=== PATIENT | female | born 1980 | race Caucasian/White ===

== ENCOUNTER 2021-06-27 11:21 | Emergency (ER) | payer MEDICARE, MEDICAID, SELFPAY ==
--- NOTE | ~2021-06-27 | CT_ITS ---
EXAMINATION: CT ABDOMEN AND PELVIS WITH CONTRAST CLINICAL INFORMATION: Pancreatitis. COMPARISON: None TECHNIQUE: Multidetector volumetric images were obtained from the superior aspect of the liver through the pubic symphysis following administration 85 mL of Omnipaque 350 intravenous contrast. Sagittal and coronal reformatted images were obtained on the technologist's workstation. Oral contrast: No. This CT examination was performed using dose optimization techniques as appropriate, variously including the following: Automated exposure control. Adjustment of mA and/or kV according to patient size (this includes techniques or standardized protocols for targeted exams where dose is matched to indication/reason for exam; i.e. extremities or head). Use of iterative reconstruction technique. DLP: 482 mGy-cm FINDINGS: LUNG BASES: The visualized lung bases are unremarkable. LIVER, GALLBLADDER, AND BILIARY TREE: There is diffuse hepatic steatosis. There are no focal lesions. There is no biliary duct dilatation. The gallbladder surgically absent. PANCREAS: Unremarkable. No apparent pancreatic inflammatory changes. SPLEEN: Upper normal in size. ADRENAL GLANDS: Unremarkable. KIDNEYS AND URETERS: The kidneys are normal in size, shape, and attenuation. No hydronephrosis, hydroureter, or calculi seen. No perinephric stranding. BLADDER: Unremarkable. GASTROINTESTINAL TRACT: The small and large bowel are unremarkable. The appendix is unremarkable. ABDOMINAL WALL: No significant hernia is appreciated. LYMPH NODES: Normal. VASCULAR: Unremarkable. PELVIC VISCERA: Unremarkable. OSSEOUS STRUCTURES: There is a transitional vertebra at the lumbosacral junction with partial sacralization of the left side of the L5 vertebra with an incomplete osseous bridge from left transverse process to sacrum. There is moderate bilateral facet arthropathy at L4-L5. There is mild bilateral facet arthropathy at L5-S1. CT/CT abdomen pelvis w con IMPRESSION: 1. Diffuse hepatic steatosis. 2. No evidence of pancreatitis or other acute inflammatory processes in the abdomen or pelvis.
[2021-06-27 11:27] VITALS: BP 137/86; PULSE 133; RESP 16; TEMP 37; O2SAT 98; BMI 24.0
--- NOTE | 2021-06-27 11:32 | ECG_ITS ---
Test Reason : ABDOMINAL PAIN Blood Pressure : / mmHG Vent. Rate : 067 BPM Atrial Rate : 067 BPM P-R Int : 192 ms QRS Dur : 082 ms QT Int : 448 ms P-R-T Axes : 055 033 026 degrees QTc Int : 473 ms Normal sinus rhythm Normal ECG When compared with ECG of 20-JUL-2012 18:40, Vent. rate has decreased BY 62 BPM Referred By: Gale Mendes Electronically Signed By:TRUPTI WANG
--- NOTE | 2021-06-27 12:08 | ED.ABDPAIN ---
HPI - Abdominal Pain General Chief Complaint: Abdominal Pain Stated Complaint: abd pain Time Seen by Provider: 06/27/21 11:32 Source: patient Mode of arrival: ambulatory Limitations: no limitations History of Present Illness MD elicited complaint: abdominal pain Pertinent past history: other (chronic pancreatitis did drink recently ) Onset (ago): day(s) (2) Pain Consistency: constant Location: epigastric Severity: severe Quality: stabbing Radiation: back Migration to: no migration Exacerbating factors: eating and movement Relieving factors: nothing Context: history of similar episodes Associated symptoms: nausea and vomiting Related Data Allergies Allergy/AdvReac Type Severity Reaction Status Date / Time lamotrigine [From LAMICTAL] Allergy Unknown UNKNOWN Unverified 07/14/20 16:49 From COMPAZINE Allergy Unknown UNKNOWN Uncoded 07/14/20 16:49 Review of Systems Review of Systems Constitutional : No Weight loss, No Fever, No Chills ENT/Mouth : No sore throat, No Rhinorrhea Eyes: No Swelling, No Redness Cardiovascular : No Chest Pain, No SOB, NoEdema Respiratory : No Cough, No Sputum, No Wheezing Gastrointestinal : Positive Nausea, Positive Vomiting, no Diarrhea, positive abdominal Pain, No Hematochezia, No Melena Genitourinary : No Dysuria, No Urinary Frequency, No Hematuria, No Urgency Musculoskeletal : No joint pain, No Myalgias, No Joint Swelling Skin : No Skin Lesions, No rash Neuro : No Weakness, No Numbness, No Dizziness, No Headache Psych : No Anxiety/Panic, No Depression Heme/Lymph: No Bruising, No Lymphadenopathy Endocrine : No Polyuria, No Polydipsia All other systems reviewed and are negative. Physical Exam Vital Signs: Vital Signs: Last Vital Signs Temp 98.3 F 06/27/21 15:06 Pulse 80 06/27/21 15:06 Resp 16 06/27/21 15:06 BP 129/74 06/27/21 15:06 Pulse Ox 97 06/27/21 15:06 Body Mass Index 24.0 Appearance: Alert. Oriented X3. Anxious in pain mild acute distress. Eyes: Pupils equal, round and reactive to light. ENT: Pharynx normal. Neck: Normal inspection. Neck supple. CVS: tachycardic heart rate and rhythm. Pulses normal. Respiratory: No respiratory distress. Breath sounds normal. Abdomen: Soft and moderate epigastric ttp with guarding no rebound Skin: Skin warm and dry. Normal skin color. Normal skin turgor. Extremities: No lower extremity edema. No calf ttp Neuro: Oriented X 3. No motor deficit. No sensory deficit. Course Course Course Narrative: given degree of pain CT scan ordered VS drastically improved signed out to Nanette CURTAIN STRETCHER pending CT scan results MDM - Abdominal Pain MDM Narrative Medical decision making narrative: 41 yo female with hx of pancreatitis here with abdominal pain and n/v feels like her pancreatitis at this time will obtain labs, IVF, IV morphine and ativan - dispo per results and findings. Lab Data Result diagrams: 06/27/21 12:13 06/27/21 12:58 Labs: Lab Results 06/27/21 06/27/21 06/27/21 Range/Units 12:13 12:13 12:13 WBC 5.9 (4.8-10.8) X10*3/uL RBC 4.15 L (4.20-5.50) X10*6/uL Hgb 13.2 (12.0-16.0) g/dl Hct 39.2 (37-47) % MCV 94.5 (80-98) fL MCH 31.8 (27.0-33.0) pg MCHC 33.7 (31.0-35.0) g/dl RDW 12.6 (11.0-16.0) % Plt Count 216 (160-400) X10*3/uL MPV 9.8 (9.4-12.3) fL Immature Gran % (Auto) 0.2 (0.0-0.4) % Neut % (Auto) 72.2 (45-73) % Lymph % (Auto) 20.6 (20-40) % [place] % (Auto) 5.6 (2-11) % Eos % (Auto) 0.7 (0-4) % Baso % (Auto) 0.7 (0-2) % Lymph # (Auto) 1.2 (1.2-4.9) X10*3/uL [place] # (Auto) 0.3 (0.1-1.2) X10*3/uL Eos # (Auto) 0.0 (0.0-0.4) X10*3/uL Baso # (Auto) 0.0 (0.0-0.2) X10*3/uL Abs Immat Gran (auto) 0.01 (0.00-0.03) X10*3/uL Absolute Neuts (auto) 4.3 (2.0-8.3) X10*3/uL Absolute Nucleated RBC 0.000 (0.0-0.012) X10*3/uL Nucleated RBC % (auto) 0.0 (0.0-0.2) /100WBC Sodium (135-145) mmol/L Potassium (3.3-5.1) mmol/L Chloride (96-108) mmol/L Carbon Dioxide (22-29) mmol/L Anion Gap (12-20) BUN (9-16) mg/dL Creatinine (0.5-1.4) mg/dL Estim Creat Clear Calc Estimated GFR Random Glucose (60-115) mg/dL Calcium (8.4-10.2) mg/dL Total Bilirubin (0.0-1.0) mg/dL Direct Bilirubin (0.0-0.5) mg/dL AST (5-31) U/L ALT (0-31) U/L Alkaline Phosphatase (39-117) U/L Lactate Dehydrogenase (122-220) U/L Total Protein (6.5-8.0) g/dL Albumin (3.5-5.0) g/dL Lipase (8-78) U/L Ethyl Alcohol 162 mg/dL COVID-19 (SISI) Negative (Negative) COVID-19 Clin Com See Note 06/27/21 06/27/21 Range/Units 12:58 12:58 WBC (4.8-10.8) X10*3/uL RBC (4.20-5.50) X10*6/uL Hgb (12.0-16.0) g/dl Hct (37-47) % MCV (80-98) fL MCH (27.0-33.0) pg MCHC (31.0-35.0) g/dl RDW (11.0-16.0) % Plt Count (160-400) X10*3/uL MPV (9.4-12.3) fL Immature Gran % (Auto) (0.0-0.4) % Neut % (Auto) (45-73) % Lymph % (Auto) (20-40) % [place] % (Auto) (2-11) % Eos % (Auto) (0-4) % Baso % (Auto) (0-2) % Lymph # (Auto) (1.2-4.9) X10*3/uL [place] # (Auto) (0.1-1.2) X10*3/uL Eos # (Auto) (0.0-0.4) X10*3/uL Baso # (Auto) (0.0-0.2) X10*3/uL Abs Immat Gran (auto) (0.00-0.03) X10*3/uL Absolute Neuts (auto) (2.0-8.3) X10*3/uL Absolute Nucleated RBC (0.0-0.012) X10*3/uL Nucleated RBC % (auto) (0.0-0.2) /100WBC Sodium 139 (135-145) mmol/L Potassium 3.6 (3.3-5.1) mmol/L Chloride 104 (96-108) mmol/L Carbon Dioxide 26 (22-29) mmol/L Anion Gap 13 (12-20) BUN 6 L (9-16) mg/dL Creatinine 0.64 (0.5-1.4) mg/dL Estim Creat Clear Calc 98.9 Estimated GFR > 60 Random Glucose 75 (60-115) mg/dL Calcium 8.6 (8.4-10.2) mg/dL Total Bilirubin 1.2 H (0.0-1.0) mg/dL Direct Bilirubin 0.5 (0.0-0.5) mg/dL AST 88 H (5-31) U/L ALT 48 H (0-31) U/L Alkaline Phosphatase 87 (39-117) U/L Lactate Dehydrogenase 139 (122-220) U/L Total Protein 6.8 (6.5-8.0) g/dL Albumin 3.8 (3.5-5.0) g/dL Lipase 8 (8-78) U/L Ethyl Alcohol mg/dL COVID-19 (SISI) (Negative) COVID-19 Clin Com Discharge Plan Discharge Clinical Impression: Abdominal pain, Alcohol intoxication, Acute alcoholic gastritis Instructions: Abdominal Pain (ED), Abuse of Alcohol (ED), Gastritis (ED) [facility] Past Medical History Attestation statement: The following information was validated with the patient. Medical History Pancreatitis, chronic Surgical History Hx of cholecystectomy Social History Social History (Updated 06/27/21 @ 12:10 by Ml Zarate DO) Alcohol intake: current Patient Tobacco Use Status: Current someday Tobacco user Advance Directives: No Advance Directives Information Provided: No
[2021-06-27 12:17] LABS: MANUAL DIFF FLAG NO
[2021-06-27 12:20] LABS: Basophils Percent Auto 0.7 % (0-2); Eosinophils Percent Auto 0.7 % (0-4); Hematocrit 39.2 % (37-47); Hemoglobin 13.2 g/dl (12.0-16.0); Imm Gran Abs Auto 0.01 X10*3/uL (0.00-0.03); Imm Gran Pct Auto 0.2 % (0.0-0.4); Lymphocytes Absolute Auto 1.2 X10*3/uL (1.2-4.9); Lymphocytes Percent Auto 20.6 % (20-40); Mean Corpuscular HGB Conc 33.7 g/dl (31.0-35.0); Mean Corpuscular Hemoglobin 31.8 pg (27.0-33.0); Mean Corpuscular Volume 94.5 fL (80-98); Mean Platelet Volume 9.8 fL (9.4-12.3); Monocytes Absolute Auto 0.3 X10*3/uL (0.1-1.2); Monocytes Percent Auto 5.6 % (2-11); Neutrophils Absolute Auto 4.3 X10*3/uL (2.0-8.3); Neutrophils Percent Auto 72.2 % (45-73); Platelet Count 216 X10*3/uL (160-400); Red Blood Count 4.15 X10*6/uL (4.20-5.50); Red Cell Distribution Width 12.6 % (11.0-16.0); White Blood Count 5.9 X10*3/uL (4.8-10.8)
[2021-06-27] MEDS: ondansetron HCL 4 MG/2 ML VIAL IVPUSH (12:30)
[2021-06-27] MEDS: LORazepam 2 MG/ML VIAL 1 MG IVPUSH (12:30)
[2021-06-27] MEDS: Lactated Ringers 1,000 ML 999 ML IV ×2 (12:30→13:28)
[2021-06-27] MEDS: Morphine Sulfate 4 MG/ML CARTRIDGE IVPUSH ×3 (12:30→19:17)
[2021-06-27 12:34] LABS: Ethanol 162 mg/dL
[2021-06-27 12:38] LABS: COVID-19 Test Negative (Negative); IDNOW Serial# 9DD0AD1C
[2021-06-27 14:07] LABS: Alanine Aminotransferase 48 U/L (0-31); Albumin Level 3.8 g/dL (3.5-5.0); Alkaline Phosphatase 87 U/L (39-117); Anion Gap 13 (12-20); Aspartate Amino Transferase 88 U/L (5-31); Bilirubin Direct 0.5 mg/dL (0.0-0.5); Bilirubin Total 1.2 mg/dL (0.0-1.0); Blood Urea Nitrogen 6 mg/dL (9-16); Calcium 8.6 mg/dL (8.4-10.2); Carbon Dioxide 26 mmol/L (22-29); Chloride 104 mmol/L (96-108); Creatinine Clr Calc Pharmacy 98.9; Estimated Glomerular Filt Rate > 60; Glucose Random 75 mg/dL (60-115); Lipase 8 U/L (8-78); Potassium 3.6 mmol/L (3.3-5.1); Sodium 139 mmol/L (135-145); Total Protein 6.8 g/dL (6.5-8.0)
[2021-06-27 14:40] LABS: Lactate Dehydrogenase 139 U/L (122-220)
[2021-06-27 15:06] VITALS: BP 129/74; PULSE 80; RESP 16; TEMP 36.8; O2SAT 97
[2021-06-27] MEDS: iohexoL 350 MG/ML 100 ML INFUS..BTL IV (16:23)
== END 2021-06-27 19:29 | disposition home or self-care (01) ==
PROVIDERS: Emergency Medicine; Emergency Provider Emergency Medicine; PCP Family Medicine
DX: K29.20 Alcoholic gastritis without bleeding (principal); F10.120 Alcohol abuse with intoxication, uncomplicated; Y90.6 Blood alcohol level of 120-199 mg/100 ml; Z20.822 Contact with and (suspected) exposure to COVID-19; F17.210 Nicotine dependence, cigarettes, uncomplicated
CPT/HCPCS: 36415; 74177; 80048; 80076; 82077; 83615; 83690; 85025; 87635; 93005; 96361; 96374; 96375; 96376; 99284; J2060; J2270; J2405; Q9967

== ENCOUNTER 2023-09-25 15:27 | Outpatient (REF) | payer MEDICARE, MEDICAID, SELFPAY ==
[2023-09-25 15:57] LABS: Ammonia 55 umol/L (13-55)
[2023-09-25 16:37] LABS: Erythrocyte Sedimentation Rate 6 MM/HR (0-20)
[2023-09-26 08:50] LABS: Syphilis Screen Nonreactive (Nonreactive)
[2023-09-26 09:04] LABS: HIV Num 1 9.68 S/CO (0.00-0.99)
[2023-09-26 10:38] LABS: HIV AB/AG Nonreactive (Nonreactive); HIV Num 2 0.07 S/CO; HIV Num 3 0.06 S/CO
[2023-09-27 08:33] LABS: Lyme Abs Screen <0.90 index
[2023-09-30 11:34] LABS: Anti Nuclear Antibody Screen NEGATIVE (NEGATIVE)
[2023-10-01 02:19] LABS: Babesia IgG <1:64 titer (<1:64); Babesia IgM <1:20 titer (<1:20)
== END 2023-09-25 15:28 | disposition home or self-care (01) ==
LOC: HO.LAB 15:27
PROVIDERS: PCP Family Medicine; Visit Provider Psychiatry & Neurology Neurology
DX: G93.40 Encephalopathy, unspecified (principal)
CPT/HCPCS: 36415; 82140; 85652; 86038; 86617; 86618; 86753; 86780; 87389

== ENCOUNTER 2024-02-17 16:37 | Outpatient (REF) | payer MEDICARE, MEDICAID, SELFPAY ==
--- NOTE | ~2024-02-17 | MR_ITS ---
EXAMINATION: MR BRAIN WITHOUT CONTRAST CLINICAL INFORMATION: Encephalopathy MR/MR head/brain wo con FINDINGS/IMPRESSION: Limited incomplete motion degraded examination which was prematurely terminated due to claustrophobia experienced a patient. Only the localizer and repeated sagittal T1 FLAIR imaging was performed. 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 The patient may be able to undergo the MRI examination at a later time after receiving pre-treatment for claustrophobia.
== END 2024-02-17 16:38 | disposition home or self-care (01) ==
LOC: HO.MRI 16:37
PROVIDERS: PCP Internal Medicine; Visit Provider Psychiatry & Neurology Neurology
DX: G93.40 Encephalopathy, unspecified (principal)
CPT/HCPCS: 70551

== ENCOUNTER 2024-09-25 17:48 | Emergency (ER) | payer OTHER, MEDICAID, SELFPAY ==
--- NOTE | ~2024-09-25 | XR_ITS ---
EXAMINATION: XR RIBS, LEFT CLINICAL INFORMATION: left sided rib pain COMPARISON: None available. TECHNIQUE: 3 views of the left ribs were obtained. FINDINGS: Asymmetric elevation of the right hemidiaphragm. No focal consolidation. No pleural effusions or pneumothorax. The cardiac silhouette is enlarged. No acute osseous abnormality. No displaced left rib fractures are identified. XR/XR ribs LT min 3V w CXR1V IMPRESSION: 1. No acute pulmonary disease. Enlarged cardiac silhouette. 2. No displaced left rib fractures are identified. Electronically signed by: Chandra Palacios MD 09/25/2024 08:43 PM RAPHAEL
--- NOTE | ~2024-09-25 | XR_ITS ---
EXAMINATION: XR HIP, LEFT CLINICAL INFORMATION: left hip pain COMPARISON: None available. TECHNIQUE: Two views of the left hip. FINDINGS: No fracture. Alignment is anatomic. Hip joint space is maintained. Soft tissues are unremarkable. 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
[2024-09-25 18:07] VITALS: BP 113/80; PULSE 107; RESP 18; TEMP 36.7; O2SAT 93; BMI 30.9
--- NOTE | 2024-09-25 18:14 | ED.PSYCH ---
HPI - Psych General Chief Complaint: Psychiatric Symptoms Stated Complaint: Crisis Time Seen by Provider: 09/25/24 19:10 History of Present Illness ED Provider: Hemalatha ROSSI Narrative: The patient is a 44-year-old woman with a history of alcoholism. She says that she had a bad fall on August 27, 1 month ago. She landed on her left side and injured her left ribcage and her left hip and broke her right foot. She was seen at [facility] at that time and has subsequently followed up with [facility] and is in a short-leg cast on the right leg. She implies that she has a 5th metatarsal fracture. She had relapsed on alcohol not long before the fall. Today she was feeling very depressed and had some vague suicidal thoughts. She was feeling bad enough that she drove herself to the hospital. She continues to have bruising on the left side of her chest and at the left hip. She has had no fever, sweats, chills. The patient is on methadone. She took her dose of methadone this morning. However she says that she thinks she may have vomited her methadone. Related Data Home Medications ?Medication ?Instructions ?Recorded ?Confirmed albuterol sulfate 90 mcg/actuation 2 puff inhalation QID PRN wheezing 09/25/24 09/25/24 aerosol inhaler docusate sodium 100 mg capsule 100 mg PO DAILY 09/25/24 09/25/24 ferrous sulfate 325 mg (65 mg 325 mg PO DAILY 09/25/24 09/25/24 iron) tablet,delayed release lactulose 10 gram/15 mL oral 15 ml PO BID PRN constipation 09/25/24 09/25/24 solution [id number] 1 cap PO TID 09/25/24 09/25/24 36,000-114,000-180,000 unit capsule,delay rel (Creon) methadone 10 mg/5 mL oral solution 150 mg PO DAILY 09/25/24 09/25/24 ondansetron HCl 4 mg tablet 4 mg PO Q8H PRN nausea/vomiting 09/25/24 09/25/24 pantoprazole 40 mg tablet,delayed 40 mg PO DAILY 09/25/24 09/25/24 release Allergies Allergy/AdvReac Type Severity Reaction Status Date / Time lamotrigine [From LAMICTAL] Allergy Unknown UNKNOWN Verified 09/25/24 18:08 From COMPAZINE Allergy Unknown UNKNOWN Uncoded 07/14/20 16:49 Review of Systems Review of Systems: Yes all other systems are reviewed and are negative [facility] Past Medical History Medical History Pancreatitis, chronic Surgical History Hx of cholecystectomy Social History Social History (Updated 06/27/21 @ 12:10 by Leana Zarate DO) Alcohol intake: current Patient Tobacco Use Status: Current someday Tobacco user Use of substances other than those prescribed or required for medical reasons: No Advance Directives: No Advance Directives Information Provided: No Healthcare Proxy: No Guardian: No Do you have a plan to hurt others: No Plan Physical Exam Vital Signs: Vital Signs: Last Vital Signs Temp 98.4 F 09/27/24 05:17 Pulse 95 09/27/24 06:00 Resp 16 09/27/24 06:00 BP 131/84 09/27/24 06:00 Pulse Ox 94 09/27/24 06:00 O2 Del Method Room Air 09/27/24 06:00 BMI result Body Mass Index 30.9 Const: Other: The patient is a chronically ill-appearing 44-year-old woman. She looks older than her age. She was resting comfortably when I first encountered her. She has a short-leg cast on her right lower leg and foot. HEENT: Other: Face is symmetrical. Mucous membranes moist. Eyes: Other: Pupils are round equal, conjunctivae clear, extraocular movements intact. Neck: Other: No posterior midline C-spine tenderness. She is moving her neck easily with the pain. Chest: Other: There is bruising on the left chest wall. There is a small nodule within the area of bruising. There is no subcutaneous emphysema or crepitus. Resp: Effort & Inspection: normal respiratory effort Auscultation: clear to auscultation bilaterally Cardio: Rate: regular rate Rhythm: regular rhythm Heart sounds: S1 normal heart sound present and S2 normal heart sound present GI: Other: The abdomen is soft and nontender. Specifically there is no right upper quadrant tenderness or Dunn's sign. Skin: Other: Skin was pale and dry Neuro: Other: The patient was sleeping. She woke easily with gentle stimulation. She seemed oriented and appropriate with a normal mental status. She did not seem markedly impaired by intoxication. Cranial nerves are intact. She moves her extremities appropriately. Extrem: Other: The right lower leg and foot are in a short-leg cast. There is bruising in the region of the left hip. However she seemed to be able to move the leg easily and appropriately. Course Course Course Narrative: This is an RME: Additional HPI, ROS, PE not included below will be deferred to primary provider. RME assessment and note performed by: Margarita Basilio PA-C This is a 39-rfcs-pon-female, with a hx of opioid use disorder on methadone, who presents to ER with complaints of increased depression. patient reports that on she fell, fracturing her right foot/ankle. at that time, she also injured her left rib and left hip which were not x-ray. patient reports that since , she was relapsed on alcohol, typically drinks 6 nips per day. She has a history of alcohol withdrawal, history of alcohol withdrawal seizures once in the past. No other drug use. Reporting vague SI, no HI. Reporting increased stress at home. Plan: x-ray left hip, left rib Reevaluation(s) Reevaluation #1: Physician observation continued. VS stable, pancytopenia and low mag from ETOH use, Pending CARE team. Reevaluation #2: Physician observation continued. VS stable, no acute events last night, Pending CARE team Medications Administered Generic Name Dose Route Start Last Admin Trade Name Freq PRN Reason Stop Dose Admin Docusate Sodium 100 mg 09/26/24 09:00 09/26/24 08:53 Docusate Sodium 100 Mg Capsule PO 100 mg DAILY SKYE Administration Ferrous Sulfate 324 mg 09/26/24 09:00 09/26/24 08:53 Ferrous Sulfate 324 Mg Tablet. PO 324 mg DAILY SKYE Administration Lorazepam 1 mg 09/25/24 20:18 09/27/24 07:12 Lorazepam 1 Mg Tablet PO 09/29/24 20:17 1 mg Q4H PRN Administration Breakthrough alcohol withdrawa Lorazepam 1 mg 09/25/24 22:30 09/27/24 03:50 Lorazepam 1 Mg Tablet PO 09/29/24 22:29 1 mg Q6H SKYE Administration Taper Methadone HCl 150 mg 09/26/24 09:00 09/26/24 09:17 Methadone Hcl 20 Mg/2 Ml Oral.Conc PO 150 mg DAILY SKYE Administration Pt Own (Lipase- 1 cap 09/26/24 08:00 09/26/24 17:53 Protease-Amylase [ PO 1 cap Creon] 36,000-114, TIDWM SKYE Administration 000- 180,000 Unit Cap Omeprazole 20 mg 09/26/24 06:30 09/27/24 06:34 Omeprazole 20 Mg Capsule.Dr PO 20 mg DAILY@0630 SKYE Administration Ondansetron HCl 4 mg 09/25/24 19:56 09/26/24 08:53 Ondansetron Odt 4 Mg Tab.Rapdis TRANSLINGU 4 mg Q8H PRN Administration nausea/vomiting Discontinued Medications Generic Name Dose Route Start Last Admin Trade Name Freq PRN Reason Stop Dose Admin Magnesium Sulfate 2 gm in 50 mls @ 150 mls/hr 09/25/24 22:33 09/25/24 23:47 Magnesium Sulfate/H2o IV 09/25/24 22:52 Infused ONCE ONE Infusion Calcium Gluconate 2 gm in 100 mls @ 50 mls/hr 09/25/24 22:33 09/26/24 01:39 Calcium Gluconate IV 09/26/24 00:32 Infused ONCE ONE Infusion Ibuprofen 600 mg 09/27/24 07:08 09/27/24 07:12 Ibuprofen 600 Mg Tablet PO 09/27/24 07:09 600 mg ONCE ONE Administration Lorazepam 2 mg 09/25/24 19:58 09/25/24 20:01 Lorazepam 1 Mg Tablet PO 09/25/24 19:59 2 mg ONCE ONE Administration Potassium Chloride 40 meq 09/25/24 22:02 09/25/24 22:37 Potassium Chloride Er 20 Meq Tab.Er.Prt PO 09/25/24 22:03 40 meq ONCE ONE Administration Medical Decision Making Medical Decision Making MDM Narrative: The patient is a 44-year-old woman who was an alcoholic. She is also on methadone. Apparently she drove herself to the hospital today because she has been feeling depressed that she has relapsed on alcohol. She has been drinking heavily over the last 6 weeks. She has short-leg cast on the right lower leg and foot because of a foot fracture that I suspect is a 5th metatarsal fracture. She has been seen at [facility] for the cast. The patient has been placed in the psychiatric pod initially. Labs were sent from the pod. This showed an ethanol level of 328. Her CBC showed pancytopenia with a white count of 2.4, hemoglobin of 10.1, platelet count of 35. Differential showed 45% neutrophils and 45% lymphocytes. Metabolic panel showed a potassium of 3.2, calcium 7.7. Magnesium was 1.4. LFTs showed a total bilirubin of 2.9, direct bilirubin 1.6, AST 162, ALT 35, alk phos 86. My interpretation of the patient's labs is that she likely has these derangements secondary to heavy alcohol use over the last 6 weeks. She has abnormal LFTs but she has no abdominal tenderness to suggest an acute biliary problem. She is thrombocytopenic but she is not bleeding. The patient was moved out of the pod to be given IV magnesium and calcium repletion. She was given oral potassium which she tolerated. The patient was given oral lorazepam. She has been tachycardic initially but her tachycardia resolved. Twelve lead EKG showed normal sinus rhythm at 72 beats per minute. No significant changes from previous EKG. QTC is 488. At this point I think the patient is medically appropriate for the psychiatric area to receive ongoing lorazepam as needed. She will be seen by the care team in the morning. She will be placed in physician observation. I was informed with the patient's nurse the patient was withdrawing, she was 21. I went to reassess the patient, patient was calm, sleeping, blood pressure 140/89, heart rate 103. When I walked in, patient woke up, requesting medication for headache. The waist no complaints, no tremors noted. Patient had just received 2 mg of p.o. Ativan. Lab Data 09/26/24 06:22 09/26/24 06:22 Labs: Lab Results 09/25/24 09/25/24 09/25/24 Range/Units 19:10 19:11 20:18 WBC 2.4 L (4.8-10.8) X10*3/uL RBC 3.23 L (4.20-5.50) X10*6/uL Hgb 10.1 L (12.0-16.0) g/dl Hct 30.5 L (37.0-47.0) % MCV 94.4 (80.0-98.0) fL MCH 31.3 (27.0-33.0) pg MCHC 33.1 (31.0-35.0) g/dl RDW 20.5 H (11.0-16.0) % Plt Count 35 L (160-400) X10*3/uL MPV 10.2 (9.4-12.3) fL Immature Gran % (Auto) 0.0 (0.0-0.4) % Neut % (Auto) 45.4 (45-73) % Lymph % (Auto) 45.4 H (20-40) % [place] % (Auto) 6.3 (2-11) % Eos % (Auto) 2.1 (0-4) % Baso % (Auto) 0.8 (0-2) % Lymph # (Auto) 1.1 L (1.2-4.9) X10*3/uL [place] # (Auto) 0.2 (0.1-1.2) X10*3/uL Eos # (Auto) 0.1 (0.0-0.4) X10*3/uL Baso # (Auto) 0.0 (0.0-0.2) X10*3/uL Abs Immat Gran (auto) 0.00 (0.00-0.03) X10*3/uL Absolute Neuts (auto) 1.1 L (2.0-8.3) x10*3/uL Absolute Nucleated RBC 0.000 (0.0-0.012) X10*3/uL Nucleated RBC % (auto) 0.0 (0.0-0.2) /100WBC Smear Tech's Comments VERIFIED Sodium 142 (135-145) mmol/L Potassium 3.2 L (3.3-5.1) mmol/L Chloride 102 (96-108) mmol/L Carbon Dioxide 31 H (22-29) mmol/L Anion Gap 12 (12-20) BUN 4 L (9-16) mg/dL Creatinine 0.71 (0.5-1.4) mg/dL Estim Creat Clear Calc 103.4 Estimated GFR > 60 Random Glucose 99 (60-115) mg/dL Calcium 7.7 L D (8.4-10.2) mg/dL Magnesium 1.4 L* (1.6-2.6) mg/dL Total Bilirubin 2.9 H (0.0-1.0) mg/dL Direct Bilirubin 1.6 H (0.0-0.5) mg/dL AST 162 H (5-31) U/L ALT 35 H (0-31) U/L Alkaline Phosphatase 86 (39-117) U/L Total Protein 6.4 L (6.5-8.0) g/dL Albumin 3.0 L (3.5-5.0) g/dL Lipase 41 (8-78) U/L Urine Color Dark Yellow Urine Appearance Clear Urine pH 6.5 (5.0-9.0) Ur Specific [place] 1.015 (1.005-1.025) Urine Protein Negative (Neg-Trace) mg/dL Urine Glucose (UA) Negative (Negative) mg/dL Urine Ketones Trace (Negative) mg/dL Urine Blood Negative (Negative) Urine Nitrite Negative (Negative) Ur Leukocyte Esterase Trace H (Negative) Urine RBC 0-2 (0-2) /HPF Urine WBC 0-5 (0-5) /HPF Ur Squamous Epith Cells 6-10 (0-2) /HPF Urine Bacteria Trace (None Seen) Hyaline Casts 0-2 (0-2) /LPF Urine Test NEGATIVE (NEGATIVE) Salicylates < 5.0 L (15-30) mg/dL Urine Opiates Screen Not Detected (Not Detect) Ur Buprenorphine Scrn Not Detected (Not Detect) ng/mL Ur Oxycodone Screen Not Detected (Not Detect) ng/mL Urine Methadone Screen Positive H (Not Detect) ng/mL Urine Fentanyl Screen Not Detected (Not Detect) Acetaminophen < 3 (<30) mcg/mL Ur Barbiturates Screen Not Detected (Not Detect) Ur Phencyclidine Scrn Not Detected (Not Detect) Ur Amphetamines Screen Not Detected (Not Detect) U Benzodiazepines Scrn POSITIVE H (Not Detect) Urine Cocaine Screen Not Detected (Not Detect) U Marijuana (THC) Screen Not Detected (Not Detect) Ethyl Alcohol 328 H* mg/dL 09/26/24 Range/Units 06:22 WBC 2.0 L (4.8-10.8) X10*3/uL RBC 3.09 L (4.20-5.50) X10*6/uL Hgb 9.7 L (12.0-16.0) g/dl Hct 29.4 L (37.0-47.0) % MCV 95.1 (80.0-98.0) fL MCH 31.4 (27.0-33.0) pg MCHC 33.0 (31.0-35.0) g/dl RDW 20.5 H (11.0-16.0) % Plt Count 31 L (160-400) X10*3/uL MPV 9.9 (9.4-12.3) fL Immature Gran % (Auto) (0.0-0.4) % Neut % (Auto) (45-73) % Lymph % (Auto) (20-40) % [place] % (Auto) (2-11) % Eos % (Auto) (0-4) % Baso % (Auto) (0-2) % Lymph # (Auto) (1.2-4.9) X10*3/uL [place] # (Auto) (0.1-1.2) X10*3/uL Eos # (Auto) (0.0-0.4) X10*3/uL Baso # (Auto) (0.0-0.2) X10*3/uL Abs Immat Gran (auto) (0.00-0.03) X10*3/uL Absolute Neuts (auto) (2.0-8.3) x10*3/uL Absolute Nucleated RBC 0.000 (0.0-0.012) X10*3/uL Nucleated RBC % (auto) 0.0 (0.0-0.2) /100WBC Smear Tech's Comments Sodium 145 (135-145) mmol/L Potassium 3.5 (3.3-5.1) mmol/L Chloride 105 (96-108) mmol/L Carbon Dioxide 32 H (22-29) mmol/L Anion Gap 12 (12-20) BUN 5 L (9-16) mg/dL Creatinine 0.68 (0.5-1.4) mg/dL Estim Creat Clear Calc 108.0 Estimated GFR > 60 Random Glucose 136 H (60-115) mg/dL Calcium 7.4 L (8.4-10.2) mg/dL Magnesium 1.6 (1.6-2.6) mg/dL Total Bilirubin 2.4 H (0.0-1.0) mg/dL Direct Bilirubin (0.0-0.5) mg/dL AST 133 H (5-31) U/L ALT 28 (0-31) U/L Alkaline Phosphatase 72 (39-117) U/L Total Protein 5.6 L (6.5-8.0) g/dL Albumin 2.5 L (3.5-5.0) g/dL Lipase (8-78) U/L Urine Color Urine Appearance Urine pH (5.0-9.0) Ur Specific [place] (1.005-1.025) Urine Protein (Neg-Trace) mg/dL Urine Glucose (UA) (Negative) mg/dL Urine Ketones (Negative) mg/dL Urine Blood (Negative) Urine Nitrite (Negative) Ur Leukocyte Esterase (Negative) Urine RBC (0-2) /HPF Urine WBC (0-5) /HPF Ur Squamous Epith Cells (0-2) /HPF Urine Bacteria (None Seen) Hyaline Casts (0-2) /LPF Urine Test (NEGATIVE) Salicylates (15-30) mg/dL Urine Opiates Screen (Not Detect) Ur Buprenorphine Scrn (Not Detect) ng/mL Ur Oxycodone Screen (Not Detect) ng/mL Urine Methadone Screen (Not Detect) ng/mL Urine Fentanyl Screen (Not Detect) Acetaminophen (<30) mcg/mL Ur Barbiturates Screen (Not Detect) Ur Phencyclidine Scrn (Not Detect) Ur Amphetamines Screen (Not Detect) U Benzodiazepines Scrn (Not Detect) Urine Cocaine Screen (Not Detect) U Marijuana (THC) Screen (Not Detect) Ethyl Alcohol mg/dL Discharge Plan Discharge Clinical Impression: Depression, Alcoholism, Hypomagnesemia, Hypocalcemia, Pancytopenia Patient Disposition: Still a Patient Prescriptions: No Action methadone 10 mg/5 mL Solution 150 mg PO DAILY Rx Instructions: Patient 13 bottles of takeaway on 09/17/24. [facility] [phone] pantoprazole 40 mg tablet,delayed release (DR/EC) 40 mg PO DAILY docusate sodium 100 mg capsule 100 mg PO DAILY albuterol sulfate 90 mcg/actuation HFA aerosol inhaler 2 puff INHALATION QID PRN (Reason: wheezing) ferrous sulfate 325 mg (65 mg iron) tablet,delayed release (DR/EC) 325 mg PO DAILY lactulose 10 gram/15 mL solution 15 ml PO BID PRN (Reason: constipation) Creon 36,000-114,000- 180,000 unit capsule,delayed release(DR/EC) 1 cap PO TID ondansetron HCl 4 mg tablet 4 mg PO Q8H PRN (Reason: nausea/vomiting) Interventions: [place]-Suicide Risk Severity Scale Last Done: 09/26/24 18:26 Print Language: Chadian
--- NOTE | 2024-09-25 18:42 | PC.NURSE ---
pt has large older bruise on left flank and left upper thigh. she states this is from her fall on Aug 27 where she also broke her ankle. She has a cast on her right foot.
--- OUTSIDE RECORDS SUMMARY | 2024-09-25 19:00 | XMS_ITS | Continuity of Care Document ---
Author Organization [facility] ter Address [address] [place] [id number]- Care Team Providers Care Php Architect Name Role Phone Adebayo MARINELLI, Rebekah Primary Care Physician Encounter [facility] [place] Date(s): 04/22/24 - 05/03/[address] [address]- Encounter Diagnosis Chronic abdominal pain(Final) - 04/22/24 Hypokalemia(Final) - 04/22/24 Hypokalemia(Final) - 04/21/24 Discharge Disposition: A-D/C Home Attending Physician: Delfino Olvera MD Admitting Physician: Kath Betancur MD Referring Physician: Not on Staff, Referring MD Allergies, Adverse Reactions, Alerts Substance Reaction Severity Status Compazine rash masking effect Active Cats hives rash Active Dust hives Active LaMICtal rash Active Immunizations Given and Recorded Vaccine Date Status Refusal Reason influenza virus vaccine, inactivated 08/19/22 Preston rded influenza virus vaccine, inactivated 08/23/21 Preston rded influenza virus vaccine, inactivated 10/14/19 Preston rded influenza virus vaccine, inactivated 07/16/18 Preston rded influenza virus vaccine, inactivated 07/10/17 Preston rded influenza virus vaccine, inactivated 11/01/15 Preston rded influenza virus vaccine, inactivated 1 08/05/14 Gi ladan influenza virus vaccine, inactivated 06/28/14 Preston rded influenza virus vaccine, inactivated 08/19/13 Preston rded influenza virus vaccine, inactivated 06/09/12 Preston rded SARS-CoV-2 (COVID-19) mRNA-1273 vaccine 05/12/21 R ecorded SARS-CoV-2 (COVID-19) mRNA-1273 vaccine 04/13/21 R ecorded tetanus/diphtheria/pertussis, acel(Tdap) 11/16/14 Given tetanus/diphtheria/pertussis, acel(Tdap) 01/17/12 Recorded tetanus-diphtheria toxoids (Td) 09/28/13 Recorded 1Result Comment: [08/05/2014] VIS given to pt. Pt denies past reaction, egg allergy, hx GBS. Medications acamprosate 333 mg oral delayed release tablet = 666 mg, By Mouth, 3 times a day with meals, # 90 each, 0 Refills, Maintenance, 05/03/24 10:34:00 EDT, Tablet, [facility], Partial fill upon patient request if the prescription is for a schedule II opioid drug., 163, cm, 05/03/24 5:31:0... Start Date: 05/03/24 Status: Ordered albuterol CFC free 90 mcg/inh inhalation aerosol 2, puffs, Inhalation, 4 times a day, PRN, # 6.7 Gm, Refills 0, Tot. Refills 0, Maintenance, 11/10/23 16:46:00 EST, Aerosol, Route to Pharmacy Electronically, [id number], [facility]/pharmacy #[id number], 162, cm, 11/10/23 13:45:00 EST, Hei... Start Date: 11/10/23 Status: Ordered Creon 36,000 units oral delayed release capsule 1 capsule, By Mouth, 3 times a day, # 90 capsule, 0 Refills, Maintenance, 05/03/24 10:34:00 EDT, [facility], Partial fill upon patient request if the prescription is for a schedule II opioid drug., 1 capsule By Mouth 3 times a day, 163,... Start Date: 05/03/24 Status: Ordered ferrous sulfate 325 mg oral enteric coated tablet 325 mg, By Mouth, Daily, # 30 each, Refills 0, Tot. Refills 0, Maintenance, 05/03/24 10:34:00 EDT, Route to Pharmacy Electronically, [facility], Partial fill upon patient request if theprescription is for a schedule II opioid drug., 163... Start Date: 05/03/24 Status: Ordered gabapentin 600 mg oral tablet 1 tablet = 600 mg, By Mouth, 3 times a day, # 270 tablet, 0 Refills, Maintenance, 10/02/23 18:53:00EST, Tablet, Partial fill upon patient request if the prescription is for a schedule II opioid drug. Start Date: 10/02/23 Status: Ordered HYDROmorphone 2 mg oral tablet 1 tablet = 2 mg, By Mouth, Every 6 hours, PRN for pain, for 3 days, # 12 tablet, 0 Refills, Acute 05/06/24 13:13:00 EDT, 05/03/24 13:13:00 EDT, Tablet, [facility], Partial fill upon patient request if the prescription is for a schedule I... Start Date: 05/03/24 Stop Date: 05/06/24 Status: Ordered HYDROmorphone 4 mg oral tablet 6 mg, Tablet, By Mouth, Every 6 hours for 7 days, PRN for Pain , Moderate, Routine, 04/27/24 9:37:00 EDT, Stop date 05/04/24 9:36:00 EDT Start Date: 04/27/24 Stop Date: 05/03/24 Status: Discontinued hydrOXYzine hydrochloride 25 mg oral tablet 1 tablet = 25 mg, By Mouth, 2 times a day, PRN anxiety, # 40 tablet, 0 Refills, Maintenance, 11/30/23 21:59:00 EST, Tablet, Partial fill upon patient request if the prescription is for a schedule II opioid drug. Start Date: 11/30/23 Status: Ordered lactulose 10 gm/15 ml oral syrup 15 mL = 10 Gm, By Mouth, 2 times a day, PRN as needed for constipation, 0 Refills, Maintenance, 11/30/23 21:58:00 EST, Syrup, Partial fill upon patient request if the prescription is for a schedule II opioid drug. Start Date: 11/30/23 Status: Ordered magnesium oxide 500 mg oral capsule 1 capsule = 500 mg, By Mouth, Daily, 0 Refills, Maintenance, 11/30/23 22:05:00 EST, Capsule, Partial fill upon patient request if the prescription is for a schedule II opioid drug. Start Date: 11/30/23 Status: Ordered methadone 10 mg/5 mL oral solution 75 mL = 150 mg, By Mouth, Daily, 0 Refills, Maintenance, 03/28/24 15:54:00 EDT, Solution, Partial fill upon patient request if the prescription is for a schedule II opioid drug. Start Date: 03/28/24 Status: Ordered Multivitamin Tablet 1 tablet, By Mouth, Daily, 0 Refills, Maintenance, 11/30/23 22:01:00 EST, Tablet, Partial fill uponpatient request if the prescription is for a schedule II opioid drug. Start Date: 11/30/23 Status: Ordered pantoprazole 40 mg oral delayed release tablet 1 tablet = 40 mg, By Mouth, Daily, # 30 tablet, 0 Refills, Maintenance, 05/03/24 13:17:00 EDT, EC Tablet, 163, cm, 05/03/24 11:41:00 EDT, Height, 89.4, kg, 04/22/24 1:16:00 EDT, Dry Weight Start Date: 05/03/24 Status: Ordered PARoxetine 20 mg oral tablet 20 mg, 1, tablet, By Mouth, Daily, # 30 tablet, Refills 0, Maintenance, 10/02/23 18:53:00 EST, Partial fill upon patient request if the prescription is for a schedule II opioid drug. Start Date: 10/02/23 Status: Ordered polyethylene glycol 3350 oral powder for reconstitution = 17 Gm, By Mouth, Daily, dissolve in 4 to 8 oz of beverage. Take once daily, or up to three times daily as needed for regular soft stools, # 250 Gm, 0 Refills, Maintenance, 05/03/24 10:33:00 EDT, REC Powder, [facility], Partial fill upo... Start Date: 05/03/24 Status: Ordered senna 187 mg oral tablet 1 tablet = 8.6 mg, By Mouth, 2 times a day, PRN Constipation, # 25 tablet, 0 Refills, Maintenance, 03/17/24 10:45:00 EDT, Tablet, [facility], Partial fill upon patient request if the prescription is for a schedule II opioid drug., 163, c... Start Date: 03/17/24 Status: Ordered SUMAtriptan 50 mg oral tablet 1 tablet = 50 mg, By Mouth, Daily, PRN for migraine headache, may repeat dose after 2 hours up to amaximum of 2, # 18 tablet, 0 Refills, Maintenance, 11/30/23 22:01:00 EST, Tablet, Partial fill uponpatient request if the prescription is for a schedu... Start Date: 11/30/23 Status: Ordered traZODone 50 mg oral tablet 50 mg, 1, tablet, By Mouth, Daily at bedtime, PRN, # 30 tablet, Refills 0, Maintenance, Sleep, 11/30/23 19:46:00 EST, Partial fill upon patient request if the prescription is for a schedule II opioiddrug. 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 Liver cirrhosis Confirmed Active Substance abuse in remission Confirmed Active Eating disorder Confirmed Active Hip pain Confirmed Active Hyperbilirubinemia Confirmed Active Hypokalemia Confirmed Active Lactic acid acidosis Confirmed Active Obese class I Confirmed Active Obesity Confirmed Active PTSD - Post-traumatic stress disorder Confirmed Active Hepatic steatosis Confirmed Active Results Radiology Reports * Exam Date Time Procedure Performing Provider Status 05/02/24 8:[address] Abd/Pelvis W/ IV Contrast Only Caitie Mendoza; Auth (Verified) Notes: (CT Abd/Pelvis W/ IV Contrast Only) Reason For Exam: Peritonitis RESULT: CT Abd/Pelvis W/ IV Contrast Only CT Abd/Pelvis W/ IV Contrast Only INDICATION: Peritonitis; Clinical Question(s): Bowel Perforation; Order Comment: TECHNIQUE: Spiral CT through the abdomen and pelvis with IV contrast formatted in 3 planes. 100 cc of Omnipaque 300 was administered intravenously. This study was performed without oral contrast. Weight-based protocol using automatic tube modulation was used to optimize exposure parameters. CTDIvol Body: 19.60 mGy, DLP Body: 1062 mGy*cm. COMPARISON: 04/21/2024 and MRI dated 04/16/2024 FINDINGS: Drawer Fitter View Findings, Lines and Tubes: None. Visualized Chest: Linear band of atelectasis within the right lung base.. No pleural effusion. The heart is normal in size. No pericardial effusion. Diaphragm: Normal. Liver: Nodular liver contour with moderate hepatomegaly. Diffuse hypodensities of the liver parenchyma, the largest of which measures 3 x 2.2 cm in segment 6 (201:59). Diffuse low-attenuation throughout the liver parenchyma consistent with hepatic steatosis. No evidence of mass. Gallbladder: Absent consistent with prior cholecystectomy. Bile ducts: No biliary ductal dilation. Spleen: Splenomegaly. Pancreas: Normal. Adrenal glands: Normal. Kidneys and ureters: No hydronephrosis, stones, or suspicious masses. Bladder: Normal. Reproductive organs: Unremarkable. Stomach, small bowel, and large bowel: Calcified material within the stomach. Appendix: Normal. Peritoneum and retroperitoneum: Small amount of ascites. There is mild haziness of the mesentery inthe right lower quadrant adjacent to the cecum. Lymph nodes: No enlarged lymph nodes. Blood vessels: Normal. No aneurysm. No evidence of venous thrombosis. Abdominal and pelvic wall: Dependent edema in the lower nonspecific edema of the subjacent tissues of the lower back.. Bones: No acute abnormality. IMPRESSION: Cirrhotic morphology of the liver with diffuse hypodensities throughout the parenchyma. See recent MRI for further characterization. Splenomegaly consistent with portal hypertension. Mild haziness of the mesentery in the right lower quadrant, a nonspecific finding. I have personally reviewed the images and I agree with this report. WSN: [id number] Ordering Physician: Graeme Krishnan Dictated By: Johnna Murcia MD Dictated Date/Time: 05/02/24 10:48 p Reviewed By: Brandon Livingston MD Signed By: Brandon Livingston MD Signed Date/Time: 05/02/24 10:53 pm Transcribed By: DAMI Transcribed Date/Time: 05/02/24 10:40 pm * Exam Date Time Procedure Performing Provider Status 04/30/24 2:47 PM Abdomen AP Angela Dexter; Mitul (Ve rified) Notes: (Abdomen AP) Reason For Exam: Constipation RESULT: XR Abdomen AP XR Abdomen AP supine view INDICATION/CLINICAL QUESTION: Constipation COMPARISON: None FINDINGS: Mild stool retention but otherwise normal bowel gas pattern. No evidence of obstruction. No evidence of pneumoperitoneum. No acute bone findings. IMPRESSION: Mild stool retention but otherwise normal. WSN: [id number] Ordering Physician: Marcos Bellamy Dictated By: Rell Nam MD Dictated Date/Time: 04/30/24 3:48 pm Reviewed By: Rell Nam MD Signed By: Rell Nam MD Signed Date/Time: 04/30/24 3:48 pm Transcribed By: DAMI Transcribed Date/Time: 04/30/24 3:47 pm * Exam Date Time Procedure Performing Provider Status 04/24/24 6:35 PM MRI Abdomen W+W/O Contrast Dale Ruiz son; Auth (Verified) Notes: (MRI Abdomen W+W/O Contrast) Reason For Exam: ct w/ numerous hypodense nodules concerning for malignancy;Mass RESULT: MRI Abdomen W+W/O Contrast MRI Abdomen W+W/O Contrast CLINICAL INDICATION: Reason: Mass; ct w numerous hypodense nodules concerning for malignancy; Clinical Question(s): Tumor Primary; Order Comment: Please see Reference Text for complete list of contraindications Tumor Primary TECHNIQUE: Multiplanar, multisequence pre and post contrast MRI evaluation of the abdomen was performed. 18 cc of Clariscan was administered intravenously. COMPARISON: None available. Correlation is made with CT abdomen/pelvis dated 04/21/2024. FINDINGS: Degraded postcontrast image quality due to respiratory motion artifacts. LOWER THORAX: Mild cardiomegaly. No pleural or pericardial effusion. LIVER: * Hepatomegaly measuring 21 cm craniocaudally. * Liver contour is mildly nodular. * There are innumerable T1 and T2 hypointense lesions throughout the liver parenchyma with the largest measuring 3.1 x 2.4 cm in segment 6, which is likely a septated lesion versus 2 adjacent lesions(image 17, series 8). These lesions demonstrate significant signal loss during out of phase chemical shift imaging, consistent with focal fat deposition. * No suspicious lesion. Enhancement is heterogeneous during arterial phase throughout the liver parenchyma, which gradually becomes less heterogeneous, consistent with transient hepatic intensity differences. * Moderate hepatic steatosis as evidenced by loss of signal on opposed phase T1- weighted images. Estimated fat fraction is 26.7%. GALLBLADDER: Status-post cholecystectomy. BILE DUCTS: No biliary ductal dilatation. SPLEEN: Enlarged spleen measures 18.5 cm craniocaudally. PANCREAS: Normal. No pancreatic ductal dilatation. ADRENAL GLANDS: No nodules. KIDNEYS: No hydronephrosis. Kidneys enhance symmetrically. No suspicious mass. STOMACH/UPPER GI TRACT: Stomach and visualized abdominal bowel normal in caliber. Large amount of stool retention in the visualized colon. PERITONEUM AND RETROPERITONEUM: Trace perihepatic fluid without declan ascites. No loculated fluid collection or peritoneal mass. LYMPH NODES: No lymphadenopathy. VESSELS: Abdominal aorta is nonaneurysmal. Hepatic, portal and splenic veins patent. Visualized inferior vena cava unremarkable. Splenic vein is dilated and tortuous. There is a small caliber recanalized umbilical vein. ABDOMINAL WALL: Unremarkable. BONES: Unremarkable. IMPRESSION: 1. Hepatomegaly and moderate hepatic steatosis with estimated fat fraction of 26.7% with innumerable foci of focal fat deposition corresponding to the hypodense lesions seen on CT. No suspicious liver lesions seen. 2. Nodular liver contour is suggestive of cirrhotic changes with stigmata of portal hypertension asevidenced by splenomegaly, varicose splenic vein, recanalized umbilical vein, and trace perihepaticfree fluid. 3. Mild cardiomegaly. WSN: [id number] Ordering Physician: Danny Martinez Dictated By: Anand Schmitz MD Dictated Date/Time: 04/26/24 9:52 am Reviewed By: Anand Schmitz MD Signed By: Anand Schmitz MD Signed Date/Time: 04/26/24 9:52 am Transcribed By: DAMI Transcribed Date/Time: 04/26/24 9:37 am * Exam Date Time Procedure Performing Provider Status 04/21/24 8:[address] Abd/Pelvis W/ IV Contrast Only Rosaura Hickey (Verified) Notes: (CT Abd/Pelvis W/ IV Contrast Only) Reason For Exam: RUQ abdominal pain;Other: RESULT: CT Abd/Pelvis W/ IV Contrast Only CT Abd/Pelvis W/ IV Contrast Only Hx of Present Illness: pancreatitis, polysubstance abuse; Reason: RUQ abdominal pain; Clinical Question(s): Biliary Obstruction; liver mass TECHNIQUE: Spiral CT through the abdomen and pelvis with IV contrast formatted in 3 planes. 100 cc of Omnipaque 300 was administered intravenously. This study was performed without oral contrast. Weight-based protocol using automatic tube modulation was used to optimize exposure parameters. CTDIvol Body: 22.17 mGy, DLP Body: 1196 mGy*cm. COMPARISON: CT abdomen and pelvis 11/10/2023 and 03/09/2024 FINDINGS: Drawer Fitter View Findings, Lines and Tubes: None. Visualized Chest: Lung bases are clear. No pleural effusion. Mild cardiomegaly. No pericardial effusion. Diaphragm: Normal. Liver: Nodular contour. Moderate hepatomegaly. Numerous hypodensities throughout the liver with thelargest measuring 3.2 x 2.5 cm in the right hepatic lobe, unchanged from prior exam on 03/09/2024 but new since 11/10/2023. Diffuse low attenuation of the hepatic parenchyma which may represent hepaticsteatosis. Gallbladder: Absent consistent with prior cholecystectomy. Bile ducts: No biliary ductal dilation. Spleen: Enlarged measuring 13.1 cm Pancreas: Moderately atrophic Adrenal glands: Normal. Kidneys and ureters: No hydronephrosis, stones, or suspicious masses. Bladder: Normal. Reproductive organs: Unremarkable. Stomach, small bowel, and large bowel: Small type I hiatal hernia. Normal small bowel. Moderate stool in the colon. Appendix: Not seen, but no evidence of appendicitis. Peritoneum and retroperitoneum: No ascites or pneumoperitoneum. No omental or mesenteric lesions. Lymph nodes: No enlarged lymph nodes. Blood vessels: Mild vascular calcifications but no aneurysm. No evidence of venous thrombosis. Abdominal and pelvic wall: Unremarkable. Bones: No acute abnormality. IMPRESSION: Cirrhotic liver with numerous hypodense lesions. Given the persistence from prior exam, recommend further evaluation with MRI to rule out malignant etiologies. I have personally reviewed the images and I agree with this report. WSN: [id number] Ordering Physician: Jalil Messer Dictated By: Liza Marie MD Dictated Date/Time: 04/21/24 9:51 pm Reviewed By: Conchis Barillas MD Signed By: Conchis Barillas MD Signed Date/Time: 04/21/24 9:56 pm Transcribed By: DAMI Transcribed Date/Time: 04/21/24 9:14 pm Vital Signs Most recent to oldest [Reference Range]: 1 2 3 Height 163 cm (05/03/24 11:41 AM) 163 cm (05/03/24 5:31 AM) 163 cm (05/02/24 10:54 PM) Weight 89.4 kg (04/22/24 1:51 AM) 89.4 kg (04/22/24 1:16 AM) 81.8 kg (04/22/24 12:31 AM) Oxygen Saturation [94-100 %] 94 % (05/03/24 11:41 AM) 95 % (05/03/24 5:31 AM) 94 % (05/02/24 10:54 PM) Pulse Rate [55-90 bpm] 71 bpm (05/03/24 11:41 AM) 68 bpm (05/03/24 5:31 AM) 78 bpm (05/02/24 10:54 PM) Body Mass Index [18.5-24.99 kg/m2] 33.65 kg/m2 *>HHI* (04/22/24 1:16 AM) 30.79 kg/m2 *>HHI* (04/22/24 12:31 AM) 30.79 kg/m2 *>HHI* (04/21/24 10:32 AM) Blood Pressure [90-138/55-84 mm Hg] 113/68mm Hg (05/03/24 11:41 AM) 106/64mm Hg (05/03/24 5:31 AM) 113/66mm Hg (05/02/24 10:54 PM) Respiratory Rate [16-30 br/min] 20 br/min (05/03/24 1:35 PM) 16 br/min (05/03/24 11:41 AM) 18 br/min (05/03/24 11:08 AM) Temperature [96.8-100.4 DegF] 98.3 DegF (05/03/24 11:41 AM) 98.6 DegF (05/03/24 5:31 AM) 98.2 DegF (05/02/24 10:54 PM) Liters per Minute 3 L/min (04/29/24 4:19 PM) Mode of Delivery (Oxygen) Room air (05/03/24 11:41 AM) Room air (05/03/24 5:31 AM) Room air (05/02/24 10:54 PM) Blood pressure sites Arm, left (05/03/24 11:41 AM) Arm, left (05/03/24 5:31 AM) Arm, left (05/02/24 10:54 PM) Temperature Route Oral (05/03/24 11:41 AM) Oral (05/03/24 5:31 AM) Oral (05/02/24 10:54 PM) Dry Weight 89.4 kg (04/22/24 1:16 AM) 81.8 kg (04/22/24 12:31 AM) 81.8 kg (04/21/24 11:43 AM) Weight Obtained Via Patient/family state d (04/21/24 10:32 AM) Dry Weight Obtained Via Patient/family s tated (04/21/24 10:32 AM) Social History Social History Type Response Smoking Status Former smoker, quit more than 30 days ago entered on: 03/10/24 Sex Admission evaluation note * Khushbu MARINELLI, Abigail Mcdaniel: PERFORM, MODIFY, MODIFY, MODIFY Event Display: Admission Note Authored Date: [id number] Patient: ??DAREN FITZGERALD ? Age:??44 Years?Sex:??Female?:??1980?? Chief Complaint/Reason for Consultation Came with complaints of abdominal pain and hypokalemia History of Present Illness 44-year-old female with PMH of substance use disorder on methadone, alcoholic liver cirrhosis with recent alcohol ordered 2 weeks ago as per patient and has been sober since then, chronic pancreatitis s/p cholecystectomy, PTSD, depression came to the ED due to hypokalemia and abdominal pain. ?? Patient's medical chart reviewed, seen and examined at bedside.?? Patient states that her PCP called her and told her to go to the emergency room due to low potassium level.?? Patient states she alsohaving ongoing acute worsening of her chronic abdominal pain and unable to take anything oral with some nausea and few episodes of vomitings.?? Patient endorses her last drink was more than a week ago and since then has been intermittently feeling withdrawal signs.?? By the time of my evaluation patient states her abdominal pain has improved.?? Denies having any chest pain, shortness of breath, palpitations, cough, sore throat, runny nose, diarrhea, constipation, dysuria. ?? Initially in the ED patient was afebrile, HR 71, RR 18, BP 118/74, saturation 97% on room air.??WBC 2.4, Hgb 10.8, PLT 56, sodium 141, K3.2, bicarb 29, BUN/creatinine 3/0.5, blood glucose 65, calcium 7.8, AST/ALT 188/43, T. bili 2.3.?? Overnight patient felt anxious and having signs of withdrawal requiring lorazepam.?? She received gabapentin, methadone 145 mg and 40 BUN 20 oral and 10 IV KClended 2 L of fluid bolus.?? Patient will be admitted to inpatient medicine service for further management Review of Systems All systems reviewed and are negative except as mentioned in HPI Objective Measurements?? Height: 163 cm (04/22/24) Weight: 89.4 kg (04/22/24) Dry Weight: 89.4 kg (04/22/24) Body Mass Index:??33.65 kg/m2??Critical (04/22/24) ? Vital Signs?? Temperature: 98.2 DegF (04/22/24 05:39:00) Temperature Route: Oral (04/22/24 05:39:00) Pulse Rate: 71 bpm (04/22/24 05:39:00) Respiratory Rate: 18 br/min (04/22/24 05:39:00) Systolic Blood Pressure: 118 mm Hg (04/22/24 05:39:00) Diastolic Blood Pressure: 74 mm Hg (04/22/24 05:39:00) Blood pressure sites: Arm, right (04/22/24 05:39:00) Mean Arterial Pressure: 89 mm Hg (04/22/24 05:39:00) Pulse Pressure: 44 mm Hg (04/22/24 05:39:00) Oxygen Saturation: 97 % (04/22/24 05:39:00) Mode of Delivery (Oxygen): Room air (04/22/24 05:39:00) Early Warning Score: 9 (04/22/24 06:15:38) ? Pain Scores 1 - 10 Pain Scale Score: 4 (11:43) Pain relief acceptable: Yes (04:22) ?? Intake/Output? 04/22 00:09 04/22 07:00 04/21 07:00 04/20 07:00 04/19 07:00 ?? 04/22 07:51 04/22 07:51 04/22 06:59 04/21 06:59 04/20 06:59 Intake ?170 ?0 ?170 ?0 ?0 Output ?0 ?0 ?0 ?0 ?0 Net Total ?170 ?0 ?170 ?0 ?0 ? Urine Count ?3 ?0 ?3 ?0 ?0 ? Precautions Seizure Precautions ? Physical Exam Gen- not in acute distress,comfortabily lying on bed, speaking in full sentences. HEENT- Normocephalic, Atraumatic, No pallor, icterus Neck-supple, no JVD Heart-S1S2(+),??regular, no murmurs. lungs- Clear, b/l air entry, no wheezing. Abdomen-soft, slight tenderness on deep palpation??in the epigastric region, no guarding, no rigidity, bowel sounds present Extremities-pulses palpable. No pedal edema. No calf tenderness. Neurological- AAO??3. No gross focal neurological deficits noted. Psychiatric-patient???s mood is stable. ?? (04/21/2024 20:[address] Abd/Pelvis W/ IV Contrast Only) MPRESSION:? Cirrhotic liver with numerous hypodense lesions. Given the persistence from prior exam, recommend further evaluation with MRI to rule out malignant etiologies. ?? Assessment/Plan 44-year-old female with PMH of substance use disorder on methadone, alcoholic liver cirrhosis with recent alcohol ordered 2 weeks ago as per patient and has been sober since then, chronic pancreatitis s/p cholecystectomy, PTSD, depression came to the ED due to hypokalemia and abdominal pain. Initially in the ED patient was afebrile, HR 71, RR 18, BP 118/74, saturation 97% on room air.?? WBC 2.4, Hgb 10.8, PLT 56, sodium 141, K3.2, bicarb 29, BUN/creatinine 3/0.5, blood glucose 65, calcium 7.8, AST/ALT 188/43, T. bili 2.3.?? Overnight patient felt anxious and having signs of withdrawal requiring lorazepam.?? She received gabapentin, methadone 145 mg and 40 BUN 20 oral and 10 IV KCl ended 2 L of fluid bolus.?? Patient will be admitted to inpatient medicine service for further management ?? 1. ??Abdominal pain ??(R10.9)??acute on chronic 2. ??Pancreatitis ??(K85.90) 3. ??Alcoholic liver disease ??(K70.9) 4. ??Transaminitis ??(R74.01) 5. ??Hyperbilirubinemia ??(E80.6) Pancytopenia Vitals as per unit standards Telemetry monitoring Pain control??with Tylenol,??gabapentin, methadone, ibuprofen Daily trend LFTs Pancreatic lipase??3 times daily with meals Zofran as needed for nausea and vomiting Multiple hepatic nodules??imaging with cirrhotic liver with numerous hypodense lesions??given persistence from previous exam??concerning for malignancy and recommending MRI MRI of the abdomen Daily trend CBC 7. ??Alcohol withdrawal ??(F10.939)??endorses signs of withdrawal, on CIWA protocol, lorazepam as needed as per CIWA score,??thiamine/folic acid/multivitamin/pyridoxine Alcohol induced gastritis???pantoprazole 40 mg daily 6. ??Hypokalemia ??(E87.6)??s/p??40 mg p.o. 10 mg IV overnight. ??Follow with repeat K 8. ??PTSD - Post-traumatic stress disorder ??(F43.10)??we will continue with paroxetine 20 mg daily Insomnia???trazodone 50 mg daily at bedtime ?? VTE Prophylaxis:??Pneumatic compression boots, platelets of 50 ?VTE Prophylaxis Assessment:??VTE Prophylaxis Ordered ?? Code Status:??Full ?Order Code Status:??Code Status Ordered Diet???regular diet ?? Patient seen and examined on 04/22/2024 ?? Histories Allergies Allergies ?(Active and Proposed Allergies Only) LaMICtal? (Severity: Unknown severity, Onset: Unknown) ?Reactions: rash Compazine? (Severity: Unknown severity, Onset: Unknown) ?Reactions: rash masking effect Dust? (Severity: Unknown severity, Onset: Unknown) ?Reactions: hives Cats? (Severity: Unknown severity, Onset: Unknown) ?Reactions: rash, hives ? Past Medical History/Problem List Active Problems(16) Abdominal pain Alcohol withdrawal Allergic reaction Cystic fibrosis carrier Eating disorder Hip pain Hyperbilirubinemia Hypokalemia Hypokalemia Lactic acid acidosis LGSIL (low grade squamous intraepithelial dysplasia) Liver cirrhosis Obese class I Obesity PTSD - Post-traumatic stress disorder Substance abuse in remission ? Past Surgical History Laparoscopy, surgical; cholecystectomy: 2004 Tonsillectomy and adenoidectomy; age 11 or over ? Social History Alcohol Details:??Use: Current. ??Frequency: 3-5 times per week. ??Type: Liquor. Details:??Use: Past. ??Frequency: 1-2 times per week. Exercise Details:??Regular exercise: Yes. ??Exercise frequency: 5-6 times/week. Substance Abuse Details:??Use: Past. ??Other: Opiates, pt has been on Suboxone x6 yrs. Tobacco Details:??Use: Former smoker, quit more than 30 days ago. Details:??Current every day smoker, Other: 1 pack a week. ??Type: Cigarettes. ? Family History Mother: Hypertension Pat. Grandmother: Cancer ? Medications Home Medications Acamprosate (acamprosate 333 mg oral delayed release tablet)?666?Milligram?By Mouth?3 times a day with meals Albuterol (albuterol CFC free 90 mcg/inh inhalation aerosol)?2?puff(s)?Inhalation?4 times a day?as needed?as needed for wheezing Gabapentin (gabapentin 600 mg oral tablet)?1?tab(s)?600?Milligram?By Mouth?3 times a day HydrOXYzine (hydrOXYzine hydrochloride 25 mg oral tablet)?1?tab(s)?25?Milligram?By Mouth?2 times a day?as needed?anxiety Lactulose (lactulose 10 gm/15 ml oral syrup)?15?Milliliter?10?gram?By Mouth?2 times a day?as needed?as needed for constipation Magnesium Oxide (magnesium oxide 500 mg oral capsule)?1?capsule?500?Milligram?By Mouth?Daily Methadone (methadone 10 mg/5 mL oral solution)?25?Milliliter?50?Milligram?By Mouth?Daily Multivitamin (Multivitamin Tablet)?1?tab(s)?By Mouth?Daily Pancrelipase (Creon 36,000 units oral delayed release capsule)?1?capsule?By Mouth?3 times a day Pantoprazole (pantoprazole 40 mg oral delayed release tablet)?1?tab(s)?40?Milligram?By Mouth?Daily Paroxetine (PARoxetine 20 mg oral tablet)?20?Milligram?1?tablet?By Mouth?Daily Polyethylene Glycol 3350 (polyethylene glycol 3350 oral powder for reconstitution)?17?gram?By Mouth?Daily?dissolve in 4 to 8 oz of beverage Senna (senna 187 mg oral tablet)?1?tab(s)?8.6?Milligram?By Mouth?2 times a day?as needed?Constipation Sumatriptan (SUMAtriptan 50 mg oral tablet)?1?tab(s)?50?Milligram?By Mouth?Daily?as needed?for migraine headache?may repeat dose after 2 hours up to a maximum of 2 Trazodone (traZODone 50 mg oral tablet)?50?Milligram?1?tablet?By Mouth?Daily at bedtime?as needed?Sleep ? Inpatient Medications Medications (30) Active SCHEDULED: (11) Acamprosate 333mg EC Tablet (acamprosate 333 mg oral delayed release tablet) ??666 mg, By Mouth, 3 times a day with meals Folic Acid 1 mg Tablet (Folic Acid Tablet) ??1 mg, By Mouth, Daily Gabapentin 300 mg Capsule (gabapentin 300 mg oral capsule) ??600 mg, By Mouth, 3 times a day Magnesium Oxide 400 mg Tablet (magnesium oxide 400 mg oral tablet) ??400 mg, By Mouth, Daily Multivitamin Therapeutic / Minerals Tablet (Multivit Therapeutic/Minerals Tablet) ??1 tablet, By Mouth, Daily NaCl 0.9% Flush 3ml (NaCL 0.9% Flush) ??3 mL, IV Push, Every 8 hours Pancrelipase 3,000 unit Capsule + Pancrelipase 15,000 unit Capsule (Pancrelipase Capsule) ??36,000 units, By Mouth, 3 times a day Pantoprazole 40 mg EC Tablet (pantoprazole 40 mg oral delayed release tablet) ??40 mg, By Mouth, Daily Paroxetine 20 mg Tablet (PARoxetine 20 mg oral tablet) ??20 mg, By Mouth, Daily Pyridoxine 50 mg Tablet (Pyridoxine Tablet) ??50 mg, By Mouth, Daily Thiamine 100 mg Tablet (Thiamine Tablet) ??100 mg, By Mouth, 2 times a day CONTINUOUS: (0) PRN: (19) Acetaminophen 325 mg Tablet (Acetaminophen Tablet) ??650 mg, By Mouth, Every 4 hours Albuterol 90mcg/Inhalation Inhaler HFA (albuterol CFC free 90 mcg/inh inhalation aerosol) ??180 mcg2 puffs, Inhalation, 4 times a day Dextromethorphan-Guaifenesin 20 mg-200 mg/10 mL Liqu UD (Robitussin DM Liquid) ??10 mL, By Mouth, Every 4 hours Docusate Sodium 100 mg Capsule (Docusate Sodium Capsule) ??100 mg 1 capsule, By Mouth, 2 times a day HydrOXYzine HCL 10mg Tablet (HydrOXYzine) ??25 mg, By Mouth, 2 times a day Lactulose 20 Gm/30mL Syrup (Lactulose) ??10 Gm 15 mL, By Mouth, 2 times a day Lorazepam 2 mg Inj Syringe (Ativan Inj) ??1 mg, IV Push Slowly, Every 2 hours Lorazepam 2 mg Inj Syringe (Ativan Inj) ??2 mg, IV Push Slowly, Every 2 hours Lorazepam 2 mg Inj Syringe (Ativan Inj) ??2 mg, IV Push Slowly, Every hour Melatonin 3 mg Tablet (Melatonin Tablet) ??3 mg, By Mouth, Daily at bedtime NaCl 0.9% Flush 3ml (NaCL 0.9% Flush) ??3 mL, IV Push, Every 8 hours nalOXONE ??400mcg/mL Inj (nalOXONE Inj) ??0.2 mg 0.5 mL, IV Push, Every 5 minutes Ondansetron 2mg/mL Inj (2mL Vial) (Zofran Inj) ??4 mg, IV Push, Once OxyCODONE 5 mg IR Tablet (oxyCODONE 5 mg oral tablet) ??5 mg, By Mouth, Every 6 hours Polyethylene Glycol 17 Gm Powder (MiraLax Powder) ??17 Gm 1 pack/packet, By Mouth, Daily Senna Tablet ??8.6 mg 1 tablet, By Mouth, 2 times a day Simethicone 80 mg Chewable Tablet (Simethicone Tablet) ??80 mg, Chew, 3 times a day Sumatriptan 25 mg tablet (SUMAtriptan 25 mg oral tablet) ??50 mg, By Mouth, Daily Trazodone 50 mg Tablet (traZODone 50 mg oral tablet) ??50 mg, By Mouth, Daily at bedtime ? Results Recent Labs BLOOD COUNT & DIFF WBC 2.4 k/mm3 (Low)?? 04/21/2024 11:33 RBC 3.72 m/mm3 (Low)?? 04/21/2024 11:33 Hgb 10.8 Gm/dL (Low)?? 04/21/2024 11:33 Hct 34.0 % (Low)?? 04/21/2024 11:33 MCV 91.4 femtoliters ()?? 04/21/2024 11:33 MCH 29.0 pg ()?? 04/21/2024 11:33 MCHC 31.8 g/dL (Low)?? 04/21/2024 11:33 Platelet Count 56 k/mm3 (Low)?? 04/21/2024 11:33 RDW-SD 56.2 femtoliters (High)?? 04/21/2024 11:33 MPV 10.7 femtoliters ()?? 04/21/2024 11:33 Nucleated RBC (Automated) 0.0 #/100 WBC'S ()?? 04/21/2024 11:33 Abs. NRBC 0.0 k/mm3 ()?? 04/21/2024 11:33 Abs. Neut 1.5 k/mm3 ()?? 04/21/2024 11:33 Abs. Lymph 0.6 k/mm3 (Low)?? 04/21/2024 11:33 Abs. [place] 0.2 k/mm3 (Low)?? 04/21/2024 11:33 Abs. Eo 0.0 k/mm3 ()?? 04/21/2024 11:33 Abs. Baso 0.0 k/mm3 ()?? 04/21/2024 11:33 Neut % 63.3 % ()?? 04/21/2024 11:33 Lymph % 27.0 % ()?? 04/21/2024 11:33 [place] % 6.8 % ()?? 04/21/2024 11:33 Eos % 1.7 % ()?? 04/21/2024 11:33 Baso % 0.8 % ()?? 04/21/2024 11:33 Imm Gran 0.4 % ()?? 04/21/2024 11:33 Abs. Imm Gran 0.0 k/mm3 ()?? 04/21/2024 11:33 ?? CARDIAC High Sensitivity Troponin (HSTnT) 7 ng/L ()?? 04/21/2024 18:00 ?? CHEM GENERAL Sodium 141 mmol/L ()?? 04/21/2024 23:37 Potassium 3.2 mmol/L (Low)?? 04/21/2024 23:37 Chloride 102 mmol/L ()?? 04/21/2024 23:37 Bicarbonate Level 29 mmol/L ()?? 04/21/2024 23:37 Anion Gap 10 ()?? 04/21/2024 23:37 Glucose Level 65 mg/dL (Low)?? 04/21/2024 23:37 BUN 3 mg/dL (Low)?? 04/21/2024 23:37 Creatinine-Blood 0.52 mg/dL ()?? 04/21/2024 23:37 Estimated GFR Creatinine 117 ML/MIN/1.73 M2 ()?? 04/21/2024 23:37 Calcium 7.8 mg/dL (Low)?? 04/21/2024 23:37 Magnesium 1.5 mg/dL (Low)?? 04/21/2024 11:33 Protein, Total 6.5 Gm/dL ()?? 04/21/2024 23:37 Albumin 3.3 Gm/dL (Low)?? 04/21/2024 23:37 AG Ratio 1.0 ()?? 04/21/2024 23:37 Alkaline Phosphatase 103 units/L ()?? 04/21/2024 23:37 Lipase 38 units/L ()?? 04/21/2024 11:33 AST (SGOT) 188 units/L (High)?? 04/21/2024 23:37 ALT (SGPT) 43 units/L (High)?? 04/21/2024 23:37 Bilirubin, Total 2.3 mg/dL (High)?? 04/21/2024 23:37 Bilirubin, Direct 0.7 mg/dL (High)?? 04/21/2024 11:33 Bilirubin, Indirect 0.9 mg/dL (High)?? 04/21/2024 11:33 ?? HEME OTHER Hold Blue Top SPECIMEN DISCARDED AFTER 4 HOURS. ()?? 04/21/2024 11:33 ?? SEROLOGY INF DISEASE Hepatitis B Surface Antigen NON REACTIVE ()?? 04/21/2024 18:00 Hepatitis B Core Ab, Total NON REACTIVE ()?? 04/21/2024 18:00 Hepatitis C Ab REACTIVE (Abnormal)?? 04/21/2024 18:00 Anti-HBS Quant 154.00 mIU/mL ()?? 04/21/2024 18:00 ?? TOXICOLOGY/TDM Ethanol, Serum or Plasma NONE DETECTED mg/dL ()?? 04/21/2024 23:37 ?? URINE OTHER Est Creatinine Clearance 118.84 mL/min ()?? 04/22/2024 00:32 ? Urinalysis Est Creatinine Clearance: 118.84 mL/min (00:32) Est Creatinine Clearance: 104.74 mL/min (12:56) ? Cardiology Labs High Sensitivity Troponin (HSTnT): 7 ng/L (04/21/24 18:00:00) High Sensitivity Troponin (HSTnT): 9 ng/L (04/21/24 11:33:00) ? [1]??CT Abd/Pelvis W/ IV Contrast Only; [facility] 20:41 EDT EKG study * Event Display: EKG Authored Date: * Event Display: ECG 12-Lead Authored Date: Please click on pdf link to open report * Event Display: ECG 12-Lead Authored Date: Ventricular Rate: 66 BPM Atrial Rate: 66 BPM P-R Interval: 172 ms QRS Duration: 86 ms Q-T Interval: 448 ms QTC Calculation(Bazett): 469 ms P Bergen: 28 degrees R Bergen: 10 degrees T Bergen: 12 degrees Normal sinus rhythm Minimal voltage criteria for LVH, may be normal variant ( R in aVL ) Inferior infarct (cited on or before 03-OCT-2023) Cannot rule out Anterior infarct (cited on or before 01-NOV-2023) Abnormal ECG When compared with ECG of 21-APR-2024 11:03, No significant change was found Confirmed by PRAVIN UFNK ([id number]) on 04/27/2024 11:05:18 AM [place]: PRAVIN FUNK * Event Display: ECG 12-Lead Authored Date: Please click on pdf link to open report * Event Display: ECG 12-Lead Authored Date: Ventricular Rate: 82 BPM Atrial Rate: 82 BPM P-R Interval: 160 ms QRS Duration: 86 ms Q-T Interval: 412 ms QTC Calculation(Bazett): 481 ms P Bergen: 57 degrees R Bergen: 16 degrees T Bergen: 21 degrees Normal sinus rhythm Possible Inferior infarct (cited on or before 03-OCT-2023) Cannot rule out Anterior infarct , age undetermined Abnormal ECG When compared with ECG of 25-MAR-2024 17:19, Nonspecific T wave abnormality now evident in Anterior leads Confirmed by Cory Mcdonough ([id number]) on 04/21/2024 11:15:39 AM [place]: [facility]cd[facility] * Event Display: Cardiac Rhythm Strips Authored Date: Hospital Progress note * Phyllis Stallings RN: PERFORM, SIGN, VERIFY Event Display: Progress Note Hospital Authored Date: Patient: DAREN FITZGERALD Age: 44 years Sex: Female : 1980 Associated Diagnoses: None Author: Phyllis Stallings RN Findings Problem Related to Alteration in Comfort : Alteration in Comfort/new 05/03/2024 1:00 EDT Alteration in Comfort Related to Disease process Goals & Outcomes: Comfort Pt will report acceptable level of comfort & pain control, Pt will state importance of adhering to pain strategy regime, Pt will demonstrate necessary skills to manage pain, Non-verbal indicators will indicate comfort/pain control Interventions Implemented: Comfort Assess pain using appropriate pain scale/tools Goals/Interventions, Comfort Yes Comfort, Problem Start 04/22/2024 2:31 Reviewed plan with, Comfort Patient Patient Progression, Comfort Pt progressing according to plan Comfort, Problem Ongoing Yes . Narrative/Incidental pt remains aox3, able to make needs known, but anxious. patient reported bowel movements and is voiding without difficulty. patient did express increase pain after iv dilaudid was d/c. provider was at bedside and ordered a CT of abdomen. pt was agreeable. s/p imaging the patient became anxious about her room being changed and asked to be discharged. provider was called again to bedside. iv ativangiven x1. provider did suggest patient stay while results are pending. pt was then cooeperative, appears to be resting in bed.. * Graeme Krishnan MD: PERFORM Event Display: Progress Note Hospital Authored Date: Patient: ??DAREN FITZGERALD ? Age:??44 Years?Sex:??Female?:??1980?? Paged at 19:03 as patient developed severe abdominal pain. I went to bedside to assess patient. Shewas curled up??on bed crying and told me she was endorsing 10/10 abdominal pain. On exam she has diffuse abdominal tenderness with self guarding but no rebound. She has been complaining of abdominal pain since admission, last CT done on 04/21 showed??cirrhotic liver with numerous hypodense lesions.Given hypodense lesions she had an abdominal MRI which showed hepatomegaly and moderate hepatic steatosis with estimated fat fraction of 26.7% with innumerable foci of focal fat deposition corresponding to the hypodense lesions seen on CT. No suspicious liver lesions seen.??Nodular liver contour is suggestive of cirrhotic changes with stigmata of portal hypertension as evidenced by splenomegaly, varicose splenic vein, recanalized umbilical vein, and trace perihepatic free fluid. ?? Patient states that her abdominal pain is different and more severe than it was initially. Will repeat CT scan of abdomen and pelvis with IV contrast. Will follow closely.?Graeme Krishnan MD ?Internal Medicine PGY-3?? * Marcos Bellamy MD: PERFORM Event Display: Progress Note Hospital Authored Date: Patient: ??DAREN FITZGERALD ? Age:??44 Years?Sex:??Female?:??1980?? Subjective 2 large, soft BMs??overnight Pt is still working on Buy buy tea 07/07 abd pain overnight, 06/06 today Some nausea with the GoLFeedbooks,??no vomiting ?? Review of Systems Negative beyond that stated in HPI. Objective Vital Signs?? Temperature: 98.3 DegF (05/02/24 10:36:00) Temperature Route: Oral (05/02/24 10:36:00) Pulse Rate: 68 bpm (05/02/24 10:36:00) Respiratory Rate: 20 br/min (05/02/24 12:13:00) Systolic Blood Pressure: 105 mm Hg (05/02/24 10:36:00) Diastolic Blood Pressure: 63 mm Hg (05/02/24 10:36:00) Blood pressure sites: Arm, left (05/02/24 10:36:00) Mean Arterial Pressure: 77 mm Hg (05/02/24 10:36:00) Pulse Pressure: 42 mm Hg (05/02/24 10:36:00) Oxygen Saturation: 94 % (05/02/24 10:36:00) Mode of Delivery (Oxygen): Room air (05/02/24 10:36:00) Early Warning Score: 8 (05/02/24 12:14:39) ? Intake/Output? 04/22 00:09 05/02 07:00 0705 07:00 04/30 07:00 07 07:00 ?? 05/02 14:49 05/02 14:49 06 06:59 05 06:59 04/30 06:59 Intake ?61359 ?236 ? 1846 ? 1408 ?472 Output ?300 ?300 ?0 ?0 ?0 Net Total ?58169 ?-64 ? 1846 ? 1408 ?472 ? Urine Count ? 75 ?2 ?5 ?5 ? 10 ? Physical Exam Constitutional: Alert, no apparent distress. Respiratory: Clear to auscultation. No wheezing, rales or rhonchi. Cardiovascular: S1 S2 regular. No murmurs, rubs or gallops. Gastrointestinal: Abdomen soft, non-distended. Mild tenderness to palpation in RUQ.??New epigastrictenderness to palpation. Genitourinary: No costovertebral angle tenderness. Neurologic: Cranial nerves II-XII grossly intact. No focal neurological deficits. Moves all extremities spontaneously. Skin: No rashes or lesions. No petechiae or purpura.?? Musculoskeletal: No cyanosis or clubbing. No gross deformities. Normal range of motion. Psychiatric: Normal mood and affect. Assessment/Plan Assessment:??Daren Fitzgerald is a 44-year-old female with a history of substance use disorder on methadone, alcoholic liver cirrhosis, chronic pancreatitis s/p cholecystectomy, PTSD, and depression whocame to the ED due to hypokalemia and abdominal pain. CT abd showed multinodular lesions that were concerning for malignancy. AFP normal, MRI abdomen showed hepatic steatosis, cirrhosis with stigmatafor portal hypertension. Imaging also showed significant stool burden including in the ascending/transverse colon, which was the most likely explanation for her pain. She is being treated for constipation. ?? Abdominal pain (R10.9):?? Constipation (K59.00):?? Alcoholic cirrhosis of liver (K70.30):?? History of chronic pancreatitis History of hep C??ab +/ viral??load??negative CAT scan??shows multinodular??lesions??that were concerning for malignancy.??AFP normal, MRI abdomen showing hepatic steatosis, cirrhosis with stigmata for portal hypertension.?? Abd pain most likely due to continued constipation. Pt did have 3 BMs overnight, but no pain improvement, however this could be due to GI activity clearing stool burden Pt reports history of constipation since childhood, now worse with opioid use KUB showed continued stool burden in RUQ ?? -GoLytely??8oz q hour until stool burden clear -Lactulose??TID -Bisacodyl??suppository -Consider??EGD??for possible??PUD if??pain??not??relieved??when??constipation resolved -Pancreatic lipase??3 times daily with meals -Zofran as needed for nausea and vomiting -As needed??Dilaudid PO??for pain -Methadone -Pantoprazole?? -Pt verified she??is rescheduled with??GI, missed??04/28 appt due to??admission ?? Pancytopenia (D61.818):?? Likely due to cirrhosis. peripheral smear nondiagnostic, past infection of Kaylee-Segovia virus, non-reacting HIV,?high Vitb12 and low normal folate, no HepC load LDH, haptoglobin, ferritin, copper,??zinc??reasonably normal; low iron levels; NE tick panel negative ?? -Daily CBC ?? Alcohol use disorder (F10.90):?? Patient has??been sober??however??started consuming 3 weeks ago Last drink 1 week prior to admission ?? -Encourage??cessation?? -Continue with acamprosate -Thiamine/folic acid/multivitamin/pyridoxine ?? Opioid use disorder (F11.90):?? Has been on??145 over the last week Addiction consult appreciated Increased methadone 145 to 150 ?? -Continue methadone 150mg -active with N in [place] for methadone; will need last dose letter at??discharge ?? Hypoglycemia (E16.2):??resolved Hypokalemia (E87.6):??resolved ?? VTE Prophylaxis:??Pneumatic compression boots Discharge Planning:??Pending improvement in pain management and relief of stool burden Diet: Regular Code Status:??Full ? Marcos Bellamy MD, PGY-2 Patient seen and discussed with the attending physician Dr. Dee. ?? * Mitch Dee MD: PERFORM Event Display: Progress Note Hospital Authored Date: [id number] Attending Attestation (Mitch Dee M.D.) 44-year-old woman with opioid use disorder on maintenance therapy, alcoholic liver cirrhosis, alcohol use disorder, severe, and??early remission, PTSD who presented with abdominal pain found to have new liver mass with benign MRI with pancytopenia course complicated by persistant abdominal pain. ?? Diagnoses: ??Pancytopenia ??Alcoholic liver cirrhosis?Opioid use disorder, severe, dependence, maintenance therapy?Alcohol use disorder, severe?Alcohol withdrawal?PTSD?Class I obesity???BMI 30?Chronic Hepatitis C? Vitals reviewed and unremarkable. Labwork reviewed and significant for Normocytic anemia, Leukopenia, Thrombocytopenia and Elevated AST (aspartate aminotransferase) levels with CBC and CMP otherwise unremarkable. AXR Imaging reviewed and significant for Mild stool retention but otherwise normal. . ?? Possible 2/2 to gastric ulcer given increase in pain with eating.?? Can consider GI CS for ?EGD if pain does not improve. ?? Plan: ??- DC IV dilaudid ??- Continue bowel regimen ?? Quality Measures: CODE STATUS: FULL??CODE DVT Prophylaxis: PCBs (Chemical DVT Prophylaxis contraindicated) Disposition: Home ?? I evaluated the patient on date of service 05/02/2024. I saw and evaluated this patient with Dr. Bellamy and agree with the resident???s findings and plan of care as documented by the resident or edited by me. I spent 38 minutes on the following: preparing to see the patient (eg, review of tests), obtaining and/or reviewing separately obtained history, performing a medically appropriate examination and/or evaluation and counseling and educating the patient/family/caregiver Consult note * Isaac MARINELLI, [place]: PERFORM, MODIFY, MODIFY, MODIFY, MODIFY, MODIFY, MODIFY Event Display: Consultation Note Authored Date: [id number] Patient: ??DAREN FITZGERALD ? Age:??44 Years?Sex:??Female?:??1980?? Hematology consultation note ?? Reason for consult: Pancytopenia with liver lesion ?? Requesting physician:??Dr. Mitch Dee ?? HPI: Daren Fitzgerald is a 44-year-old woman with a history of opiate dependence on methadone, alcoholic liver cirrhosis, chronic pancreatitis who presented to the ER initially with abdominal pain.?? She wasalso found to have hypokalemia on lab work from her PCPs office and was asked to report to the emergency department.? 2-3 weeks prior??to presentation, she developed??abdominal pain??which she described as intense in the right upper quadrant.?? There is associated nausea and vomiting that she experienced. ??She doesnot report any diarrhea and does have constipation on the contrary.?? She does have??bloody stools occasionally although she has not had a bowel movement recently to??notice and observe. ??She does not report any melena.?? She denies??drastic weight loss although she reports a poor appetite in general.?? She does still have??an occasional headache and significant back pain??which is chronic for her.?? Although she??had??been sober, she reports slipping and having??alcohol about 2 to 3 weeks prior to presentation ?? She had a CT of the abdomen pelvis with IV contrast on 04/21/2024 which revealed cirrhotic liver with numerous hypodense lesions.?? Given the persistence from prior exam, further evaluation with an MRI was recommended to rule out malignant etiologies.?? Hematology has been consulted for pancytopenia.?? Review of her CBC shows worsening pancytopenia however her pancytopenia does date back to September 2023 which is when we have labs for her from. ?? She does not report any B symptoms including night sweats,??fevers, chills, weight loss. ?? Past medical history: Cystic fibrosis carrier Liver cirrhosis related to alcohol use PTSD Opiate dependence on methadone Hepatitis C antibody reactive???hepatitis C??viral titers are negative. ?? Past surgical history: Laparoscopic cholecystectomy, tonsillectomy and adenoidectomy ?? Social history: Currently lives in [place].?? She drinks alcohol 3-5 times per week in the past although she has been sober.?? She used to smoke cigarettes but has quit. ?? Family history: Paternal grandmother with cancer. ?? Allergies: Medication allergy to Compazine and Lamictal ?? Medications: Acamprosate (acamprosate 333 mg oral delayed release tablet)?666?Milligram?By Mouth?3 times a day with meals Albuterol (albuterol CFC free 90 mcg/inh inhalation aerosol)?2?puff(s)?Inhalation?4 times a day?as needed?as needed for wheezing Gabapentin (gabapentin 600 mg oral tablet)?1?tab(s)?600?Milligram?By Mouth?3 times a day HydrOXYzine (hydrOXYzine hydrochloride 25 mg oral tablet)?1?tab(s)?25?Milligram?By Mouth?2 times a day?as needed?anxiety Lactulose (lactulose 10 gm/15 ml oral syrup)?15?Milliliter?10?gram?By Mouth?2 times a day?as needed?as needed for constipation Magnesium Oxide (magnesium oxide 500 mg oral capsule)?1?capsule?500?Milligram?By Mouth?Daily Methadone (methadone 10 mg/5 mL oral solution)?25?Milliliter?50?Milligram?By Mouth?Daily Multivitamin (Multivitamin Tablet)?1?tab(s)?By Mouth?Daily Pancrelipase (Creon 36,000 units oral delayed release capsule)?1?capsule?By Mouth?3 times a day Pantoprazole (pantoprazole 40 mg oral delayed release tablet)?1?tab(s)?40?Milligram?By Mouth?Daily Paroxetine (PARoxetine 20 mg oral tablet)?20?Milligram?1?tablet?By Mouth?Daily Polyethylene Glycol 3350 (polyethylene glycol 3350 oral powder for reconstitution)?17?gram?By Mouth?Daily?dissolve in 4 to 8 oz of beverage Senna (senna 187 mg oral tablet)?1?tab(s)?8.6?Milligram?By Mouth?2 times a day?as needed?Constipation Sumatriptan (SUMAtriptan 50 mg oral tablet)?1?tab(s)?50?Milligram?By Mouth?Daily?as needed?for migraine headache?may repeat dose after 2 hours up to a maximum of 2 Trazodone (traZODone 50 mg oral tablet)?50?Milligram?1?tablet?By Mouth?Daily at bedtime?as needed?Sleep ?? Review of systems: All review of systems discussed and otherwise negative except as mentioned above. ?? Vitals: Temperature?98.9 ?(11:37) Systolic Blood Pressure?120 ?(11:37) Diastolic Blood Pressure?63 ?(11:37) Pulse?80 ?(11:37) SpO2?94 ?(11:37) Respiratory Rate?18 ?(16:05) ?? General: Patient in no apparent distress?? Head: Normocephalic, atraumatic?? EENT: No pallor, icteric appearing Neck: Supple, no lymphadenopathy?? Chest: No scars, sinuses?? Cardiac: S1, S2 heard; No mrg, Regular rate and rhythm. Respiratory: Normal vesicular breath sounds heard; No adventitious sounds?? GI: RUQ tenderness, no palpable masses on exam Neuro: AOx 3; No focal neurological deficits.?? Extremities: No edema in upper or lower extremities?? Skin: No rash, bleeding or ulcers.?? Psych: Calm and cooperative? Labs: Most recent CBC with a WBC of 2.3, hemoglobin of 9.7, MCV of 94.2, platelet count of 43,000 with noabnormal appearing cells.? Peripheral smear reviewed: No abnormal WBCs noted. Platelets are decreased. Occasional large LGL cells noted. RBCs mostly normal appearing with rare schistocytes. ?? Assessment and Plan: This 44-year-old woman has a history of alcoholic liver cirrhosis and opiate dependence currently on methadone presenting with??acute abdominal pain which is??being worked up. ??She was found to havepancytopenia which is chronic although worse compared to before.?? Hematology has been consulted for the same. ?? Pancytopenia Pancytopenia is likely secondary to liver cirrhosis. ??This is further corroborated by??deranged LFTs including hyperbilirubinemia, elevated transaminases.?? Testing for vitamin B12 and folate levelsare within normal limits.?? Iron studies most recently showed a ferritin of 54 although this was from about 6 months ago. ??Peripheral smear does not show any concerning findings that would warrant abone marrow biopsy. ?? Plan: ??? Obtain copper levels, zinc levels ??? Obtain ferritin, iron studies ??? Obtain haptoglobin, LDH ?? Concern for liver lesions With alcoholic liver cirrhosis, she is at an increased risk of developing??HCC.?? She does have a reactive hepatitis C testing although??hepatitis C DNA log is negative. An MRI of the abdomen liver protocol??should be considered as an inpatient. ?? CC: Dr. Mitch Dee * Sarah ATFOYA, Lucita Roman: PERFORM Event Display: Consultation Note Authored Date: Patient: ??DAREN FITZGERALD ? Age:??44 Years?Sex:??Female?:??1980?? Reason for Consultation Addiction Med Consult - ETOH relapse? Requested by??Bhavin Grossman NP History of Present Illness Daren Fitzgerald is a 44-year-old female with a past medical history of opiate use disorder on methadone, alcohol use disorder, cirrhosis, chronic pancreatitis??s/p cholecystectomy, PTSD, depression.?? Patient was admitted 04/22 after presenting??with abdominal pain and low K levels.??Last ETOH intake w as??>1 week??ago per pt, however she was showing some signs of withdrawal and??was started??on aCIWA.? Patient this morning. Patient reporting that she has not had alcohol now in the last 2 weeks.?? She was previously drinking??4 nips every evening. Patient was recently started on Campral,??which she was given after??discharge earlier this month. She has been taking this and found it helpful so far, and would like to continue on this. Additionally, patient is on methadone through [facility] in [place].?? She does not endorse any recent opiate use. She recalls that within the last week or so she was increased to a dose of 145 mg. ??She reports??that she is sometimes feels like this wears off in the wrapping clerk, depending on??when her doses??are. ??She would be agreeable to have the dose increased a little bit to see if this will help to bridge the gap. In terms of other supports,??patient reports that she is already involved in therapy, and is established with a recovery rn and psychiatrist.?She does report a large amount of anxiety, requesting benzodiazepines. Patient??is not endorsing use of any other substances such as??cocaine or other stimulants, illicitpills, etc. Review of Systems Reporting ongoing burning abdominal pain. Physical Exam Vitals & Measurements T:??98.1?F?? TMIN:??97.9?F?? TMAX:??98.2?F?? HR:??106??(Peripheral)?? RR:??18?? BP:??131/80?? SpO2:??94%?? WT:??89.4??kg?? General:??well developed, well nourished,??appears to be stated age.??Breathing is??even and unlabored.??In no acute distress,??no diaphoresis. Mental Status Exam: Appearance:??casual?? Attitude:??cooperative? Eye contact:??normal Motor activity:??calm, no aberrant movements? Mood:??anxious? Affect:??congruent? Speech:??fluent, unimpaired? Judgment:??appears intact? Insight:??appears intact? Thought process:??linear? Reliability:??likely reliable source? Delusions or hallucinations:??denies Fund of knowledge:??intact Assessment/Plan Alcohol withdrawal (F10.939):??.?? Alcohol use disorder (F10.90):??.?? Patient was counseled on consequences of mcc excessive ETOH consumption such as damage to thecardiovascular system, memory loss/dementia, falls/injury, cirrhosis, higher risk??for HCC,??liver failure, . Pt receptive. ?? Pt recently provided with campral, would like to continue on this. Can continue pt on campral 666mgPO TID, could provide pt with new script on DC.??She should??otherwise follow up with her PCP for ongoing continuation of campral. ?? Pt??is already established with quite a few outpatient supports, and is not interested in anything additional from us at this time. ?? Continue with CIWA scoring and PRN ativan. Would be careful to not overmedicate pt, she does appear to have quite a bit of anxiety, which could influence CIWA scores. Pt reporting she has not drank in about a week at this point, so really should not need to continue CIWA for much longer than a day or so. Would consider addition of vistaril 25-50mg PO q 4-6 hrs PRN for anxiety, and try to steer pt away from use of benzodiazepines. Encouraged pt to discuss her anxiety issues with her psychiatrist. ?? Opioid use disorder (F11.90):??.?? Pt has been on methadone 145mg for at least a week now. Some wearing off wrapping clerk at times. QTc here <500ms. ?? Could consider increasing methadone dose to 150mg daily for the time being to see if this might help bridge some of that wrapping clerk time. Patient will need a last dose letter on discharge. This is typically a free text note printed with date of discharge and methadone dose received here.? Sent update via??[facility]post[facility] to Dr Martinez Addiction??Service will sign off at this time. Thank you for allowing us to participate in the care of this patient. Please contact me with any questions or concerns. Problem List/Past Medical History Ongoing Abdominal pain Alcohol withdrawal Allergic reaction Cystic fibrosis carrier Eating disorder Hip pain Hyperbilirubinemia Hypokalemia Hypokalemia Lactic acid acidosis LGSIL (low grade squamous intraepithelial dysplasia) Liver cirrhosis Obese class I Obesity PTSD - Post-traumatic stress disorder Substance abuse in remission Procedure/Surgical History ???Laparoscopy, surgical; cholecystectomy (2003)???Tonsillectomy and adenoidectomy; age 12 or over Medications Inpatient acamprosate 333 mg oral delayed release tablet, 666 mg, By Mouth, 3 times a day with meals Acetaminophen Tablet, 650 mg, By Mouth, Every 4 hours, PRN albuterol CFC free 90 mcg/inh inhalation aerosol, 180 mcg= 2 puffs, Inhalation, 4 times a day, PRN Ativan Inj, 1 mg, IV Push Slowly, Every 2 hours, PRN Ativan Inj, 2 mg, IV Push Slowly, Every 2 hours, PRN Ativan Inj, 2 mg, IV Push Slowly, Every hour, PRN Dextrose 50% Inj Syringe (25Gm), 12.5 Gm, IV Push Slowly, Every 20 minutes, PRN Dextrose 50% Inj Syringe (25Gm), 25 Gm, IV Push Slowly, Every 15 minutes, PRN Docusate Sodium Capsule, 100 mg= 1 capsule, By Mouth, 2 times a day, PRN Folic Acid Tablet, 1 mg, By Mouth, Daily gabapentin 300 mg oral capsule, 600 mg, By Mouth, 3 times a day Glucagon Inj, 1 mg, Intramuscular, Once, PRN Glucose Gel, 15 Gm, By Mouth, Every 20 minutes, PRN Glucose Gel, 30 Gm, By Mouth, Every 20 minutes, PRN HydrOXYzine, 25 mg, By Mouth, 2 times a day, PRN Lactulose, 10 Gm= 15 mL, By Mouth, 2 times a day, PRN magnesium oxide 400 mg oral tablet, 400 mg, By Mouth, Daily Melatonin Tablet, 3 mg, By Mouth, Daily at bedtime, PRN MiraLax Powder, 17 Gm= 1 pack/packet, By Mouth, Daily, PRN Multivit Therapeutic/Minerals Tablet, 1 tablet, By Mouth, Daily NaCL 0.9% Flush, 3 mL, IV Push, Every 8 hours NaCL 0.9% Flush, 3 mL, IV Push, Every 8 hours, PRN nalOXONE Inj, 0.2 mg= 0.5 mL, IV Push, Every 5 minutes, PRN oxyCODONE 5 mg oral tablet, 5 mg, By Mouth, Every 6 hours, PRN Pancrelipase Capsule, 57972 units, By Mouth, 3 times a day pantoprazole 40 mg oral delayed release tablet, 40 mg, By Mouth, Daily PARoxetine 20 mg oral tablet, 20 mg, By Mouth, Daily Pyridoxine Tablet, 50 mg, By Mouth, Daily Robitussin DM Liquid, 10 mL, By Mouth, Every 4 hours, PRN Senna Tablet, 8.6 mg= 1 tablet, By Mouth, 2 times a day, PRN Simethicone Tablet, 80 mg, Chew, 3 times a day, PRN SUMAtriptan 25 mg oral tablet, 50 mg, By Mouth, Daily, PRN Thiamine Tablet, 100 mg, By Mouth, 2 times a day traZODone 50 mg oral tablet, 50 mg, By Mouth, Daily at bedtime, PRN Zofran Inj, 4 mg, IV Push, Once, PRN Home acamprosate 333 mg oral delayed release tablet, 666 mg, By Mouth, 3 times a day with meals albuterol CFC free 90 mcg/inh inhalation aerosol, 2 puffs, Inhalation, 4 times a day, PRN Creon 36,000 units oral delayed release capsule, 1 capsule, By Mouth, 3 times a day gabapentin 600 mg oral tablet, 600 mg= 1 tablet, By Mouth, 3 times a day hydrOXYzine hydrochloride 25 mg oral tablet, 25 mg= 1 tablet, By Mouth, 2 times a day, PRN lactulose 10 gm/15 ml oral syrup, 10 Gm= 15 mL, By Mouth, 2 times a day, PRN magnesium oxide 500 mg oral capsule, 500 mg= 1 capsule, By Mouth, Daily methadone 10 mg/5 mL oral solution, 50 mg= 25 mL, By Mouth, Daily Multivitamin Tablet, 1 tablet, By Mouth, Daily pantoprazole 40 mg oral delayed release tablet, 40 mg= 1 tablet, By Mouth, Daily PARoxetine 20 mg oral tablet, 20 mg= 1 tablet, By Mouth, Daily polyethylene glycol 3350 oral powder for reconstitution, 17 Gm, By Mouth, Daily senna 187 mg oral tablet, 8.6 mg= 1 tablet, By Mouth, 2 times a day, PRN SUMAtriptan 50 mg oral tablet, 50 mg= 1 tablet, By Mouth, Daily, PRN traZODone 50 mg oral tablet, 50 mg= 1 tablet, By Mouth, Daily at bedtime, PRN Allergies Cats??(hives, rash) Compazine??(rash masking effect) Dust??(hives) LaMICtal??(rash) Social History Alcohol Use: Current. Frequency: 3-5 times per week. Type: Liquor. Exercise Regular exercise: Yes. Exercise frequency: 5-6 times/week. Substance Abuse Use: Past. Other: Opiates, pt has been on Suboxone x6 yrs. Tobacco Use: Former smoker, quit more than 30 days ago. Family History Cancer: Pat. Grandmother. Hypertension: Mother. Immunizations Vaccine Date Status influenza virus vaccine, inactivated 08/19/2022 Recorded influenza virus vaccine, inactivated 08/23/2021 Recorded SARS-CoV-2 (COVID-19) mRNA-1273 vaccine 05/12/2021 Recorded SARS-CoV-2 (COVID-19) mRNA-1273 vaccine 04/13/2021 Recorded influenza virus vaccine, inactivated 10/14/2019 Recorded influenza virus vaccine, inactivated 07/16/2018 Recorded influenza virus vaccine, inactivated 07/10/2017 Recorded influenza virus vaccine, inactivated 11/01/2015 Recorded tetanus/diphtheria/pertussis, acel(Tdap) 11/16/2014 Given influenza virus vaccine, inactivated 08/05/2014 Given Comments : [08/05/2014] VIS given to pt. Pt denies past reaction, egg allergy, hx GBS. influenza virus vaccine, inactivated 06/28/2014 Recorded tetanus-diphtheria toxoids (Td) 09/28/2013 Recorded influenza virus vaccine, inactivated 08/19/2013 Recorded influenza virus vaccine, inactivated 06/09/2012 Recorded tetanus/diphtheria/pertussis, acel(Tdap) 01/17/2012 Recorded Note * Yvrose Romero LPN: PERFORM Event Display: Discharge/Transfer Note Hospital Authored Date: [id number] Nursing Discharge Note Entered On: 05/03/2024 13:44 EDT Performed On: 05/03/2024 13:43 EDT by Yvrose Romero LPN Nursing Discharge Note 2 Discharge Time : 05/03/2024 13:43 EDT Discharge Level of Care at Discharge : Home/Long-Term/Foster Care Patient Left Unit Via : Ambulatory Patient Accompanied Off Unit with : Responsible adult DC Instructions Provided & Signed by Pt : Yes Patient Understands D/C Instructions : Yes Patient Instructions Discharge Signed : Yes Did Pt have Specialty Bed or Wound Vac : No Yvrose Romero LPN - 05/03/2024 13:43 EDT * Robyn Malone MD: PERFORM, MODIFY, MODIFY Event Display: Discharge/Transfer Note Hospital Authored Date: [id number] Patient: ??DAREN FITZGERALD ? Age:??44 Years?Sex:??Female?:??1980?? Patient Information Discharge Location: Primary Care Physician: Adebayo MARINELLI Rebekah Admit Date/Time: 04/22/24 00:09 Discharge Disposition Discharge Disposition: Home: No Services Discharge Diagnosis Abdominal pain (R10.9) Alcoholic cirrhosis of liver (K70.30) Pancytopenia (D61.818) Alcohol withdrawal (F10.939) Opioid use disorder (F11.90) PTSD - Post-traumatic stress disorder (F43.10) Obese class I (Z68.30) Constipation (K59.00) Hypokalemia (E87.6) Alcohol use disorder (F10.90) Chronic pancreatitis (K86.1) Hepatocellular injury (K76.9) Splenomegaly (R16.1) Hypoglycemia (E16.2) Chronic abdominal pain (R10.9) Hypokalemia (E87.6) Liver cirrhosis (K74.60) _ Discharge Medications Acamprosate (acamprosate 333 mg oral delayed release tablet)?666?Milligram?By Mouth?3 times a day with meals Albuterol (albuterol CFC free 90 mcg/inh inhalation aerosol)?2?puff(s)?Inhalation?4 times a day?as needed?as needed for wheezing Ferrous Sulfate (ferrous sulfate 325 mg oral enteric coated tablet)?325?Milligram?By Mouth?Daily Gabapentin (gabapentin 600 mg oral tablet)?1?tab(s)?600?Milligram?By Mouth?3 times a day HydrOXYzine (hydrOXYzine hydrochloride 25 mg oral tablet)?1?tab(s)?25?Milligram?By Mouth?2 times a day?as needed?anxiety Lactulose (lactulose 10 gm/15 ml oral syrup)?15?Milliliter?10?gram?By Mouth?2 times a day?as needed?as needed for constipation Magnesium Oxide (magnesium oxide 500 mg oral capsule)?1?capsule?500?Milligram?By Mouth?Daily Methadone (methadone 10 mg/5 mL oral solution)?75?Milliliter?150?Milligram?By Mouth?Daily Multivitamin (Multivitamin Tablet)?1?tab(s)?By Mouth?Daily Pancrelipase (Creon 36,000 units oral delayed release capsule)?1?capsule?By Mouth?3 times a day Pantoprazole (pantoprazole 40 mg oral delayed release tablet)?1?tab(s)?40?Milligram?By Mouth?Daily Paroxetine (PARoxetine 20 mg oral tablet)?20?Milligram?1?tablet?By Mouth?Daily Polyethylene Glycol 3350 (polyethylene glycol 3350 oral powder for reconstitution)?17?gram?By Mouth?Daily?dissolve in 4 to 8 oz of beverage. Take once daily, or up to three times dailyas needed for regular soft stools Senna (senna 187 mg oral tablet)?1?tab(s)?8.6?Milligram?By Mouth?2 times a day?as needed?Constipation Sumatriptan (SUMAtriptan 50 mg oral tablet)?1?tab(s)?50?Milligram?By Mouth?Daily?as needed?for migraine headache?may repeat dose after 2 hours up to a maximum of 2 Trazodone (traZODone 50 mg oral tablet)?50?Milligram?1?tablet?By Mouth?Daily at bedtime?as needed?Sleep ? Quality Measures Tobacco Use Treatment:? Medications Started Ferrous sulfate 325 mg once daily Miralax prn Medications Discontinued None Doses Changed Methadone - dose increased to 150 mg once daily, last dose on 05/03 PCP Follow-Up/Heads-Up Abd pain likely 2/2 constipation vs pancreatitis, both chronic. Managed with Dilaudid while inpt, which pt was given a 3-day course upon discharge. ?? Hospital Course Daren Fitzgerald is a 44-year-old female with a history of substance use disorder on methadone, alcoholic liver cirrhosis, chronic pancreatitis s/p cholecystectomy, PTSD, and depression who came to the ED due to hypokalemia and abdominal pain. CT abd showed multinodular lesions that were concerning for malignancy. AFP normal, MRI abdomen showed hepatic steatosis, cirrhosis with stigmata for portal hypertension, no evidence of malignancy. Imaging also showed significant stool burden including in the ascending/transverse colon, which was the most likely explanation for her pain vs chronic pancreatitis. She had improvement in constipation on bowel regimen started inpatient. Pain was??ongoing but abdominal exam by discharge was benign and pt tolerating PO food/drink without issue. ?? Abdominal pain (R10.9):?? Chronic Constipation (K59.00):?? Pt reports history of constipation since childhood, now worse with opioid use KUB showed continued stool burden in RUQ. Having 3+ bowel movements daily by discharge on bowel regimen, although with persistent pain. Location in epigastrium and RUQ also suggests chronic pancreatitis. S/p remote cholecystectomy and no biliary ductal dilation on CT. ?? Plan: -Continue lactulose TID and Miralax prn for??constipation -Pantoprazole 40 mg once daily -Discharged with Dilaudid 2 mg Q6 prn x3 days (#12 tabs) -Close PCP follow up? Alcoholic cirrhosis of liver (K70.30):?? CT scan??showing cirrhosis morphology. MRI w/o concern for malignancy. Hep C Ab positive, negative viral load on 04/22. ?? Plan: -Patient has [facility] GI follow up scheduled in May. Will need EGD and Q6 US for surveillance iso cirrhosis ?? Pancytopenia (D61.818):?? Iron deficiency anemia Likely due to cirrhosis. Peripheral smear nondiagnostic, past infection of Kaylee-Segovia virus, non-reacting HIV,?high Vit b12 and low normal folate, no HepC load LDH, haptoglobin, ferritin, copper,??zinc??reasonably normal; low iron levels; NE tick panel negative ?? Plan: -Ferrous sulfate 325 mg QD, new -Repeat CBC at PCP follow up and iron studes in 4-6 weeks ?? Alcohol use disorder (F10.90):?? Patient has??been sober??however??started consuming 3 weeks ago Last drink 1 week prior to admission Pt??met with addiction med while inpatient. ?? Plan: -Continue with acamprosate 666 mg TID -Thiamine/folic acid/multivitamin/pyridoxine ?? Opioid use disorder (F11.90):?? Has been on??145 over the last week Addiction consult appreciated Increased methadone 145 to 150 ?? Plan: -Continue methadone 150mg -Active with N in [place] for methadone;??given last dose letter at??discharge ?? Objective Vital Signs?? Temperature: 98.6 DegF (05/03/24 05:31:00) Temperature Route: Oral (05/03/24 05:31:00) Pulse Rate: 68 bpm (05/03/24 05:31:00) Respiratory Rate: 18 br/min (05/03/24 08:43:00) Systolic Blood Pressure: 106 mm Hg (05/03/24 05:31:00) Diastolic Blood Pressure: 64 mm Hg (05/03/24 05:31:00) Blood pressure sites: Arm, left (05/03/24 05:31:00) Mean Arterial Pressure: 78 mm Hg (05/03/24 05:31:00) Pulse Pressure: 42 mm Hg (05/03/24 05:31:00) Oxygen Saturation: 95 % (05/03/24 05:31:00) Mode of Delivery (Oxygen): Room air (05/03/24 05:31:00) Early Warning Score: 8 (05/03/24 08:51:23) ? . Physical Exam General:??Alert, NAD Mental Status:??Oriented to person, time and place. Normal affect HEENT:??Normocephalic. PERRL, EOMI. MMM. Neck supple. Respiratory:??Normal work of breathing. CTAB. Cardiovascular: RRR, normal S1 and S2. No murmur. No lower extremity edema. Gastrointestinal:??Normal bowel sounds. Abdomen soft, non-tender, non-distended. No masses Neurologic:??Cranial nerves II-XII grossly intact, no focal neurological deficits. Skin:??No rashes, lesions or ecchymoses?? Extremities:??No gross deformities. Normal range of motion Consultants Addiction medicine - Lucita Smith, MICHELET Hematology - Isaac MARINELLI, Francisco Patient Education Titles [employer] Patient Education - Understanding Cirrhosis?? [employer] Patient Education - Cirrhosis?? [employer] Patient Education - The Impact of Alcohol Use Disorder?? [employer] Patient Education - Iron Supplements?? [employer] Patient Education - Depression: Tips to Help Yourself?? [employer] Patient Education - Depression?? [employer] Patient Education - Hypokalemia?? Follow-Up Appointments Added Follow Up ?Time Frame ?Comments Rebekah Fiore MD?3-5 day: call to discuss follow up visit Patient Instructions You were admitted to the hospital for abdominal pain. The pain is most likely due to constipation, nonspecific stomach irritation (gastritis), versus related to your history of chronic pancreatitis. Imaging of your abdomen showed a liver condition called cirrhosis which can be caused by excessive alcohol use. It is important you follow up closely with a GI specialist. Please also call your PCP to schedule a follow up visit within 1 week. ?? Please call??your PCP or??return to the hospital if you experience any of the following: New fevers, worsening pain, lethargy or weakness, loss of consciousness, inability to eat/drink, profuse vomiting, blood in vomit or stool. ?? New or changed medications: -Methadone: Dose increased from 145 to 150 mg once daily -Miralax: Take 1 cap??daily for regular, soft stools -Iron supplement: Take 1 tablet once daily, ideally on an empty stomach 1 hour before eating/other medications. This is for iron deficiency anemia ? Patient Follow-up: With: Address: When: Rebekah Fiore MD [address] [place] [id number] Within 3-5 day: call to discuss follow up visit Results Discharge Labs BLOOD COUNT & DIFF WBC 3.3 k/mm3 (Low)?? 05/03/2024 01:17 RBC 3.39 m/mm3 (Low)?? 05/03/2024 01:17 Hgb 10.0 Gm/dL (Low)?? 05/03/2024 01:17 Hct 32.8 % (Low)?? 05/03/2024 01:17 MCV 96.8 femtoliters ()?? 05/03/2024 01:17 MCH 29.5 pg ()?? 05/03/2024 01:17 MCHC 30.5 g/dL (Low)?? 05/03/2024 01:17 Platelet Count 109 k/mm3 (Low)?? 05/03/2024 01:17 RDW-SD 64.5 femtoliters (High)?? 05/03/2024 01:17 MPV 10.8 femtoliters ()?? 05/03/2024 01:17 Nucleated RBC (Automated) 0.0 #/100 WBC'S ()?? 05/03/2024 01:17 Abs. NRBC 0.0 k/mm3 ()?? 05/03/2024 01:17 Abs. Neut 1.0 k/mm3 (Low)?? 04/23/2024 01:55 Abs. Lymph 0.6 k/mm3 (Low)?? 04/23/2024 01:55 Abs. [place] 0.2 k/mm3 (Low)?? 04/23/2024 01:55 Abs. Eo 0.1 k/mm3 ()?? 04/23/2024 01:55 Abs. Baso 0.0 k/mm3 ()?? 04/23/2024 01:55 Neut % 51.6 % ()?? 04/23/2024 01:55 Lymph % 32.5 % ()?? 04/23/2024 01:55 [place] % 11.3 % (High)?? 04/23/2024 01:55 Eos % 4.1 % ()?? 04/23/2024 01:55 Baso % 0.5 % ()?? 04/23/2024 01:55 Peripheral Blood Smear Review Interp. Reviewed by pathologist. ()?? 04/22/2024 07:40 Retic Count 2.2 % (High)?? 04/22/2024 07:40 Retic Count Corrected 1.5 % ()?? 04/22/2024 07:40 Retic Production Index 1.0 % ()?? 04/22/2024 07:40 Imm Gran 0.0 % ()?? 04/23/2024 01:55 Abs. Imm Gran 0.0 k/mm3 ()?? 04/23/2024 01:55 ?? CARDIAC High Sensitivity Troponin (HSTnT) 7 ng/L ()?? 04/21/2024 18:00 ? CHEM GENERAL Sodium 137 mmol/L ()?? 05/03/2024 01:17 Potassium 4.3 mmol/L ()?? 05/03/2024 01:17 Chloride 103 mmol/L ()?? 05/03/2024 01:17 Bicarbonate Level 26 mmol/L ()?? 05/03/2024 01:17 Anion Gap 8 ()?? 05/03/2024 01:17 Glucose Level 134 mg/dL (High)?? 05/03/2024 01:17 Glucose, POC 113 mg/dL (High)?? 04/29/2024 17:09 BUN 6 mg/dL ()?? 05/03/2024 01:17 Creatinine-Blood 0.83 mg/dL ()?? 05/03/2024 01:17 Estimated GFR Creatinine 89 ML/MIN/1.73 M2 ()?? 05/03/2024 01:17 Osmolality 283 mOs/kg ()?? 04/22/2024 07:40 Calcium 8.9 mg/dL ()?? 05/03/2024 01:17 Phosphorus 2.6 mg/dL ()?? 04/24/2024 01:01 Magnesium 1.6 mg/dL ()?? 04/24/2024 01:01 Protein, Total 6.6 Gm/dL ()?? 05/02/2024 00:17 Albumin 3.3 Gm/dL (Low)?? 05/02/2024 00:17 AG Ratio 1.0 ()?? 05/02/2024 00:17 LDH 234 units/L ()?? 04/25/2024 01:10 Alkaline Phosphatase 77 units/L ()?? 05/02/2024 00:17 Lipase 38 units/L ()?? 04/21/2024 11:33 AST (SGOT) 84 units/L (High)?? 05/02/2024 00:17 ALT (SGPT) 25 units/L ()?? 05/02/2024 00:17 Bilirubin, Total 1.1 mg/dL ()?? 05/02/2024 00:17 Bilirubin, Direct 0.7 mg/dL (High)?? 04/27/2024 00:52 Bilirubin, Indirect 0.8 mg/dL (High)?? 04/27/2024 00:52 Vitamin B12 Level 1448 pg/mL (High)?? 04/22/2024 07:40 Folic Acid Level 7.5 ng/mL ()?? 04/22/2024 07:40 Iron Level 26 mcg/dL (Low)?? 04/25/2024 01:10 Iron Binding Capacity, Unsaturated 269 mcg/dL ()?? 04/25/2024 01:10 Iron Binding Capacity, Estimated Total 295 mcg/dL ()?? 04/25/2024 01:10 % Iron Saturation 9 % (Low)?? 04/25/2024 01:10 Ferritin Level 27 ng/mL ()?? 04/25/2024 01:10 ?? COAG INR 2.2 (High)?? 04/23/2024 01:55 Protime (PT) 21.9 seconds (High)?? 04/23/2024 01:55 Fibrinogen 149 mg/dL (Low)?? 04/23/2024 01:55 D-Dimer 0.66 mg/L FEU ()?? 04/23/2024 08:10 ?? ENDOCRINE/TUMOR MARKER Alpha Fetoprotein 3.0 ng/mL ()?? 04/25/2024 01:10 ? HEME OTHER Hold Blue Top SPECIMEN DISCARDED AFTER 4 HOURS. ()?? 04/21/2024 11:33 ? IMMUNOLOGY GENERAL Haptoglobin 35 mg/dL ()?? 04/25/2024 01:10 ? MISC. CHEMISTRY Copper Level 74 (Low)?? 04/25/2024 10:09 Zinc Level 46 ()?? 04/25/2024 10:09 Hold Gel Top SPECIMEN DISCARDED AFTER 1 WEEK ()?? 04/26/2024 00:57 ? SEROLOGY INF DISEASE CMV IgG Ab >10.00 (High)?? 04/22/2024 07:40 EBV Viral Capsid Ab IgM <36.0 ()?? 04/22/2024 12:16 EBV Viral Capsid Ab IgG >600.0 (High)?? 04/22/2024 12:16 EBV Nuclear Antigen Ab >600.0 (High)?? 04/22/2024 12:16 Hepatitis B Surface Antigen NON REACTIVE ()?? 04/21/2024 18:00 Hepatitis B Core Ab, Total NON REACTIVE ()?? 04/21/2024 18:00 Hepatitis C Ab REACTIVE (Abnormal)?? 04/21/2024 18:00 HIV 4th Generation Ab-Ag Result Non Reactive ()?? 04/22/2024 12:16 Anaplasma PCR NEGATIVE ()?? 04/21/2024 18:00 Babesia PCR NEGATIVE ()?? 04/21/2024 18:00 Ehrlichia PCR NEGATIVE ()?? 04/21/2024 18:00 Anti-HBS Quant 154.00 mIU/mL ()?? 04/21/2024 18:00 Anti-HAV IgG NEGATIVE ()?? 04/21/2024 18:00 EBV Interpretation Comment ()?? 04/22/2024 12:16 B. Burgdorferi PCR NEGATIVE ()?? 04/21/2024 18:00 ? TOXICOLOGY/TDM Ethanol, Serum or Plasma NONE DETECTED mg/dL ()?? 04/21/2024 23:37 ? UA/URINALYSIS Hold Urine Testing Available 24 hours from Time of Collection ()?? 04/22/2024 15:11 ? URINE OTHER Potassium, Urine Random <3.0 mmol/L ()?? 04/22/2024 15:11 Osmolality, Urine Random 128 mOsm/kg ()?? 04/22/2024 15:11 Est Creatinine Clearance 74.45 mL/min ()?? 05/03/2024 03:04 ? VIROLOGY Hepatitis C Quantitation HCV Not Detected ()?? 04/22/2024 12:16 Test Information Comment ()?? 04/22/2024 12:16 ? MRI Abdomen W+WO Contrast, 04/24: IMPRESSION: 1. ??Hepatomegaly and moderate hepatic steatosis with estimated fat fraction of 26.7% with innumerable foci of focal fat deposition corresponding to the hypodense lesions seen on CT. No suspicious liver lesions seen. 2. ??Nodular liver contour is suggestive of cirrhotic changes with stigmata of portal hypertension as evidenced by splenomegaly, varicose splenic vein, recanalized umbilical vein, and trace perihepatic free fluid. 3. ??Mild cardiomegaly. ? Robyn aMlone MD Med-Peds PGY-4 P. [id number] or??[employer] ?? This patient was seen and discussed with attending physician, Dr. Olvera ?? 35??minutes spent on discharge * Wade MARINELLI, [facility] D: PERFORM Event Display: Discharge/Transfer Note Hospital Authored Date: ??I have seen and examined and evaluated this patient. ??I have discussed the case and its management with the resident and agree with the findings and plan as documented in the resident's ??note except as noted below. ?? Abd. pain improved-?? no pancreatitis on CT . Has had cholecystectomy, CT abdomen showed no CBD stones. Given laxatives for constipation.? Had MRI abdomen to evaluate livr lesions-MRI abdomen characterized the hypodense liver lesions as fatty deposits.?? Also has pancytp=openia from EtoH cirrhosis and splenomegaly and BM suppression.?? Iron supplementation for DEBRA.? F/u outpatient with her Shingles Roofer Dr. Briseno for variceal screeing, colonoscopy .?? Continue PPI ? * Rosaura Figueroa RN: PERFORM Event Display: Patient Education/Instruction Authored Date: Inpatient Adult Discharge Instructions. [address] [address] Name: DAREN FITZGERALD : 1980?? Visit: 04/22/2024 00:09?? Current Date: 05/03/2024 13:21 ?? Account: [id number]?? Inpatient Adult Discharge Instructions We would like to thank you for allowing us to assist you with your healthcare needs. The following includes patient education materials and information regarding your injury/illness. Our entire staffstrives to provide an excellent experience for our patients and their families. PLEASE ENSURE YOU FOLLOW-UP PER THE INSTRUCTIONS BELOW! ?? YOUR OPINION IS IMPORTANT TO US! Please complete the survey you may receive by mail or email. Your feedback will be used to make improvements to the healthcare experiences of our patients and their families. Surveys are administered by [employer] ?? If further treatment with your primary care physician or another doctor is recommended, it is important for you to keep the appointment. Call your primary care physician or return to the Emergency Department immediately if your condition worsens, fails to improve, or new symptoms develop. If you need to find a doctor, you can call [facility] for a referral at [phone] or toll free at [phone]) or log in to [email or web address].. ?? [facility], in keeping with [facility] guidance, no longer requires face masks for staff, patientsor visitors in most situations. Similiar to time spent indoors at other locations, there is the chance that you were exposed to repiratory viruses during your time with us (such as flu or COVID-19). If you develop symptoms concerning for a viral respiratory infection, please seek testing (and treatment if indicated) from your medical provider or home test kit. ?? You can view and manage your care through the patient portal or by using a health care amberly of your choosing. [employer] is a website that allows you to securely view your medical information including your hospital discharge summary, office visit summaries, medications and follow-up visits. You can also request appointments, renew medications, and request access to your medical information using a health care amberly of your choosing, or just ask a question. You can enroll at [email or web address] or register during your next office visit. You have been discharged from [facility], Patient Care Unit: S2??. If you have any questions regarding these instructions, including results of studies pending, afteryou leave, please call us and we will be happy to assist you 20/05. [facility] Your Care Team Attending Physician Delfino Olvera MD?? Consulting Providers Delfino Olvera MD?? Discharging Providers Robyn Malone MD Reason for Your Visit liver lesions, r/o malignancy?? Your Diagnosis Abdominal pain Alcoholic cirrhosis of liver Pancytopenia Alcohol withdrawal Opioid use disorder PTSD - Post-traumatic stress disorder Obese class I Constipation Alcohol use disorder Chronic pancreatitis Hepatocellular injury Hypoglycemia Liver cirrhosis Splenomegaly Tests Performed Below is a partial list of the tests performed during your hospitalization. You may have had other tests and procedures not included in this list. Please discuss all test results with your provider. ALT Anti-HAV IgG Anti-HBS Quant AST Basic Metabolic Panel Bilirubin Total + Direct BUN CBC CBC w/ Differential CMV IGG ANTIBODY Comprehensive Metabolic Panel Copper Level Creatinine D Dimer EBV Antibodies ETHANOL FERRITIN FETOPROTEIN Fibrinogen FOLIC ACID GLUCOSE POC HAPTOGLOBIN Hemoglobin HEPATIC FUNCTION PANEL Hepatitis B Core Ab Hepatitis B Surface Antigen Hepatitis C Ab Hepatitis C RNA PCR Quant High??Sensitivity??Troponin T HIV Ab-Ag 4th Generation Hold Blue Top Tube HOLD GEL TUBE HOLD URINE IRON & TIBC LDH LIPASE Lytes Magnesium Level Northeast Tick PCR Panel OSMOLALITY, SERUM PERIPHERAL BLOOD SMEAR REVIEW Phosphorus Level Platelet Count PT (INR) RETICULOCYTE COUNT Troponin T, High Sensitivity Urine Osmolality Urine Potassium VITAMIN B12 Zinc Level CT Abd/Pelvis W/ IV Contrast Only MRI Abdomen W+W/O Contrast XR KUB or Abdomen No tests performed during this visit.?? Primary Care Provider Rebekah Fiore MD? Advance Directive Health Care Proxy on File No Patient refuses to discuss Discharge Vitals Temperature: 98.3 DegF Height: 163 cm Pulse Rate: 71 bpm Weight: 89.4 kg Respiratory Rate: 16 br/min Body Mass Index:??33.65 kg/m2??Critical Systolic Blood Pressure: 113 mm Hg Body surface area: 2.01 Diastolic Blood Pressure: 68 mm Hg ?? Oxygen Saturation: 94 % ?? Studies Pending All studies ordered during this hospital stay have been completed unless listed below. Please discuss all pending results with your provider listed above in these instructions. ?? No incomplete studies found?? What to do next Instructions From Your Doctor You were admitted to the hospital for abdominal pain. The pain is most likely due to constipation, nonspecific stomach irritation (gastritis), versus related to your history of chronic pancreatitis. Imaging of your abdomen showed a liver condition called cirrhosis which can be caused by excessive alcohol use. It is important you follow up closely with a GI specialist. Please also call your PCP to schedule a follow up visit within 1 week. ?? Please call??your PCP or??return to the hospital if you experience any of the following: New fevers, worsening pain, lethargy or weakness, loss of consciousness, inability to eat/drink, profuse vomiting, blood in vomit or stool. ?? New or changed medications: -Methadone: Dose increased from 145 to 150 mg once daily -Miralax: Take 1 cap??daily for regular, soft stools. Use this in addition to lactulose twice dailyif not having regular bowel movements with lactulose alone. -Iron supplement: Take 1 tablet once daily, ideally on an empty stomach 1 hour before eating/other medications. This is for iron deficiency anemia -Dilaudid: 2??mg??every 6 hours as needed for 3 days for severe pain ? Patient Follow-up: With: Address: When: Rebekah Fiore MD [address] [place] [address] Within 3-5 day: call to discuss follow up visit ?? Orders? 05/03/24 13:14:00 EDT?? You Need to Schedule the Following Appointments Follow Up with??Rebekah Fiore MD When:??Within 3-5 day: call to discuss follow up visit Where: [address] [place] [address]- Discharge Medications DAREN FITZGERALD :1980 Visit Date:04/22/2024 Medications: Please continue your medications until treatment is completed or stopped by your provider. Medications not listed below should be discontinued. Discuss any questions related to medications with your provider. What How Much When Instructions Next Dose New Ferrous Sulfate (ferrous sulfate 325 mg oral enteric coated tablet) 325 Milligram Oral Daily Pickup at [facility] 3 07/08, 9 am New Hydromorphone (HYDROmorphone 2 mg oral tablet) 1 tab(s) Oral Every 6 hours as needed for for pain Duration: 3 Days Pickup at [facility] 3 As Needed Changed Methadone (methadone 10 mg/ 5 mL oral solution) 75 Milliliter Oral Daily 07/08, 9 am Changed Polyethylene Glycol 3350 (polyethylene glycol 3350 oral powder for reconstitution) 17 gram Oral Daily dissolve in 4 to 8 oz of beverage. Take once daily, or up to three times daily as needed for regular soft stools ?? Pickup at [facility] 3 As Needed Unchanged Acamprosate (acamprosate 333 mg oral delayed release tablet) 666 Milligram Oral 3 times a day with meals Pickup at [place] [address] 05/03,??5 pm Unchanged Albuterol (albuterol CFC free 90 mcg/ inh inhalation aerosol) 2 puff(s) Inhalation 4 times a day as needed for as needed for wheezing As Needed Unchanged Gabapentin (gabapentin 600 mg oral tablet) 1 tab(s) Oral 3 times a day 05/03, 3 pm Unchanged HydrOXYzine (hydrOXYzine hydrochloride 25 mg oral tablet) 1 tab(s) Oral Twice a day as needed for anxiety As Needed Unchanged Lactulose (lactulose 10 gm/ 15 ml oral syrup) 15 Milliliter Oral Twice a day as needed for as needed for constipation As Needed Unchanged Magnesium Oxide (magnesium oxide 500 mg oral capsule) 1 capsule Oral Daily 05/04, 9 pm Unchanged Multivitamin (Multivitamin Tablet) 1 tab(s) Oral Daily 05/04, 9 am Unchanged Pancrelipase (Creon 36,000 units oral delayed release capsule) 1 capsule Oral 3 times a day Pickup at [place] [address] 05/03, 3 pm Unchanged Pantoprazole (pantoprazole 40 mg oral delayed release tablet) 1 tab(s) Oral Daily Pickup at [place] [address] 05/04, 9 am Unchanged Paroxetine (PARoxetine 20 mg oral tablet) 1 tab(s) Oral Daily 05/04, 9 am Unchanged Senna (senna 187 mg oral tablet) 1 tab(s) Oral Twice a day as needed for Constipation As Needed Unchanged Sumatriptan (SUMAtriptan 50 mg oral tablet) 1 tab(s) Oral Daily as needed for for migraine headache may repeat dose after 2 hours up to a maximum of 2 ?? As Needed Unchanged Trazodone (traZODone 50 mg oral tablet) 1 tab(s) Oral Daily at Bedtime as needed for Sleep As Needed Pharmacy Information [facility]: [address], [place] [phone] Prescription Given During Visit Acamprosate (acamprosate 333 mg oral delayed release tablet) - 666 mg, By Mouth, 3 times a day withmeals, # 90 each, 0 Refills, [place] [address] [phone]?? Ferrous Sulfate (ferrous sulfate 325 mg oral enteric coated tablet) - 325 mg, By Mouth, Daily, # 30each, 0 Refills, [place] [address] [phone]?? Hydromorphone (HYDROmorphone 2 mg oral tablet) - 1 tablet = 2 mg, By Mouth, Every 6 hours, # 12 tablet, 0 Refills, [place] [address] [phone]?? Pancrelipase (Creon 36,000 units oral delayed release capsule) - 1 capsule, By Mouth, 3 times a day, # 90 capsule, 0 Refills, [place] [address] [phone]?? Pantoprazole (pantoprazole 40 mg oral delayed release tablet) - 1 tablet = 40 mg, By Mouth, Daily, # 30 tablet, 0 Refills, [place] [address] [phone]?? Polyethylene Glycol 3350 (polyethylene glycol 3350 oral powder for reconstitution) - 17 Gm, By Mouth, Daily, # 250 Gm, 0 Refills, dissolve in 4 to 8 oz of beverage. Take once daily, or up to three times daily as needed for regular soft stools, [place] [address] [phone]?? Laboratory Results Below is a partial list of the most recent Laboratory test results done prior to this discharge. You may have had other tests and procedures not included in this list. Please discuss all test resultswith your provider. Est Creatinine Clearance - 74.45 mL/min (05/03/2024) ALT (04/27/2024) ???ALT (SGPT) - 28 units/L Anti-HAV IgG (04/21/2024) ???Anti-HAV IgG - NEGATIVE Anti-HBS Quant (04/21/2024) ???Anti-HBS Quant - 154.00 mIU/mL AST (04/27/2024) ???AST (SGOT) - 103 units/L Basic Metabolic Panel (05/03/2024) ???Sodium - 137 mmol/L???Potassium - 4.3 mmol/L???Chloride - 103 mmol/L???Bicarbonate Level - 26 mmol/L???Anion Gap - 8???Glucose Level - 134 mg/dL???BUN - 6 mg/dL???Creatinine-Blood - 0.83 mg/dL???Estimated GFR Creatinine - 89 ML/MIN/1.73 M2???Calcium - 8.9 mg/dL Bilirubin Total + Direct (04/27/2024) ???Bilirubin, Total - 1.5 mg/dL???Bilirubin, Direct - 0.7 mg/dL???Bilirubin, Indirect - 0.8 mg/dL BUN (04/27/2024) ???BUN - 6 mg/dL CBC (05/03/2024) ???WBC - 3.3 k/mm3???RBC - 3.39 m/mm3???Hgb - 10.0 Gm/dL???Hct - 32.8 %???MCV - 96.8 femtoliters???MCH - 29.5 pg???MCHC - 30.5 g/dL???Platelet Count - 109 k/mm3???RDW-SD - 64.5 femtoliters???MPV - 10.8 femtoliters???Nucleated RBC (Automated) - 0.0 #/100 WBC'S???Abs. NRBC - 0.0 k/mm3 CBC w/ Differential (04/23/2024) ???WBC - 1.9 k/mm3???RBC - 3.41 m/mm3???Hgb - 9.8 Gm/dL???Hct - 31.9 %???MCV - 93.5 femtoliters???MCH - 28.7 pg???MCHC - 30.7 g/dL???Platelet Count - 41 k/mm3???RDW-SD - 57.7 femtoliters???MPV - 11.1femtoliters???Nucleated RBC (Automated) - 0.0 #/100 WBC'S???Abs. NRBC - 0.0 k/mm3???Abs. Neut - 1.0 k/mm3???Abs. Lymph - 0.6 k/mm3???Abs. [place] - 0.2 k/mm3???Abs. Eo - 0.1 k/mm3???Abs. Baso - 0.0 k/mm3???Neut % - 51.6 %???Lymph % - 32.5 %???[place] % - 11.3 %???Eos % - 4.1 %???Baso % - 0.5 %???Imm Gran- 0.0 %???Abs. Imm Gran - 0.0 k/mm3 CMV IGG ANTIBODY (04/22/2024) ? ?CMV IgG Ab - >10.00 Comprehensive Metabolic Panel (05/02/2024) ???Sodium - 141 mmol/L???Potassium - 4.1 mmol/L???Chloride - 105 mmol/L???Bicarbonate Level - 24 mmol/L???Anion Gap - 12???Glucose Level - 102 mg/dL???BUN - 6 mg/dL???Creatinine-Blood - 0.74 mg/dL???Estimated GFR Creatinine - 102 ML/MIN/1.73 M2???Calcium - 8.7 mg/dL???Protein, Total - 6.6 Gm/dL???Al bumin - 3.3 Gm/dL???AG Ratio - 1.0???Alkaline Phosphatase - 77 units/L???AST (SGOT) - 84 units/L???ALT (SGPT) - 25 units/L???Bilirubin, Total - 1.1 mg/dL Copper Level (04/25/2024) ???Copper Level - 74 Creatinine (04/27/2024) ???Creatinine-Blood - 0.65 mg/dL???Estimated GFR Creatinine - 111 ML/MIN/1.73 M2 D Dimer (04/23/2024) ???D-Dimer - 0.66 mg/L FEU EBV Antibodies (04/22/2024) ? ?EBV Viral Capsid Ab IgM - <36.0? ?EBV Viral Capsid Ab IgG - >600.0? ?EBV Nuclear Antigen Ab - >600.0? ?EBV Interpretation - Comment ETHANOL (04/21/2024) ???Ethanol, Serum or Plasma - NONE DETECTED FERRITIN (04/25/2024) ???Ferritin Level - 27 ng/mL FETOPROTEIN (04/25/2024) ???Alpha Fetoprotein - 3.0 ng/mL Fibrinogen (04/23/2024) ???Fibrinogen - 149 mg/dL FOLIC ACID (04/22/2024) ???Folic Acid Level - 7.5 ng/mL GLUCOSE POC (04/29/2024) ???Glucose, POC - 113 mg/dL HAPTOGLOBIN (04/25/2024) ???Haptoglobin - 35 mg/dL Hemoglobin (04/26/2024) ???Hgb - 10.0 Gm/dL HEPATIC FUNCTION PANEL (04/23/2024) ???Protein, Total - 6.3 Gm/dL???Albumin - 3.3 Gm/dL???Alkaline Phosphatase - 109 units/L???AST (SGOT) - 177 units/L???ALT (SGPT) - 42 units/L???Bilirubin, Total - 2.4 mg/dL???Bilirubin, Direct - 1.1 mg/dL???Bilirubin, Indirect - 1.3 mg/dL Hepatitis B Core Ab (04/21/2024) ???Hepatitis B Core Ab, Total - NON REACTIVE Hepatitis B Surface Antigen (04/21/2024) ???Hepatitis B Surface Antigen - NON REACTIVE Hepatitis C Ab (04/21/2024) ???Hepatitis C Ab - REACTIVE Hepatitis C RNA PCR Quant (04/22/2024) ???Hepatitis C Quantitation - HCV Not Detected???Test Information - Comment High??Sensitivity??Troponin T (04/21/2024) ???High Sensitivity Troponin (HSTnT) - 9 ng/L HIV Ab-Ag 4th Generation (04/22/2024) ???HIV 4th Generation Ab-Ag Result - Non Reactive Hold Blue Top Tube (04/21/2024) ???Hold Blue Top - SPECIMEN DISCARDED AFTER 4 HOURS. HOLD GEL TUBE (04/26/2024) ???Hold Gel Top - SPECIMEN DISCARDED AFTER 1 WEEK HOLD URINE (04/22/2024) ???Hold Urine - Testing Available 24 hours from Time of Collection IRON & TIBC (04/25/2024) ???Iron Level - 26 mcg/dL???Iron Binding Capacity, Unsaturated - 269 mcg/dL???Iron Binding Capacity, Estimated Total - 295 mcg/dL???% Iron Saturation - 9 % LDH (04/25/2024) ???LDH - 234 units/L LIPASE (04/21/2024) ???Lipase - 38 units/L Lytes (04/27/2024) ???Sodium - 138 mmol/L???Potassium - 4.3 mmol/L???Chloride - 100 mmol/L???Bicarbonate Level - 28 mmol/L???Anion Gap - 10 Magnesium Level (04/24/2024) ???Magnesium - 1.6 mg/dL Northeast Tick PCR Panel (04/21/2024) ???Anaplasma PCR - NEGATIVE???Babesia PCR - NEGATIVE???Ehrlichia PCR - NEGATIVE???B. Burgdorferi PCR - NEGATIVE OSMOLALITY, SERUM (04/22/2024) ???Osmolality - 283 mOs/kg PERIPHERAL BLOOD SMEAR REVIEW (04/22/2024) ???Peripheral Blood Smear Review Interp. - Reviewed by pathologist. Phosphorus Level (04/24/2024) ???Phosphorus - 2.6 mg/dL Platelet Count (04/26/2024) ???Platelet Count - 55 k/mm3 PT (INR) (04/23/2024) ???INR - 2.2???Protime (PT) - 21.9 seconds RETICULOCYTE COUNT (04/22/2024) ???Retic Count - 2.2 %???Retic Count Corrected - 1.5 %???Retic Production Index - 1.0 % Troponin T, High Sensitivity (04/21/2024) ???High Sensitivity Troponin (HSTnT) - 7 ng/L Urine Osmolality (04/22/2024) ???Osmolality, Urine Random - 128 mOsm/kg Urine Potassium (04/22/2024) ? ?Potassium, Urine Random - <3.0 mmol/L VITAMIN B12 (04/22/2024) ???Vitamin B12 Level - 1448 pg/mL Zinc Level (04/25/2024) ???Zinc Level - 46 Allergies (NKA means No Known Allergies) Cats??(hives, rash) Compazine??(rash masking effect) Dust??(hives) LaMICtal??(rash) Problems Active Problems??(19) Abdominal pain?? Alcohol withdrawal?? Allergic reaction?? Borderline personality disorder?? Cocaine dependence in remission?? Cystic fibrosis carrier?? Eating disorder?? Hepatic steatosis?? Hip pain?? Hyperbilirubinemia?? Hypokalemia?? Lactic acid acidosis?? LGSIL (low grade squamous intraepithelial dysplasia)?? Liver cirrhosis?? Obese class I?? Obesity?? Opioid dependence?? PTSD - Post-traumatic stress disorder?? Substance abuse in remission?? Education Materials Below is the list of Educational Leaflet Providered with your Discharge Instructions. Web[employer] Patient Education - Understanding Cirrhosis?? [employer] Patient Education - Cirrhosis?? [employer] Patient Education - The Impact of Alcohol Use Disorder?? [employer] Patient Education - Iron Supplements?? [employer] Patient Education - Depression: Tips to Help Yourself?? [employer] Patient Education - Depression?? [employer] Patient Education - Hypokalemia?? Valuables and Belongings I fully understand and agree that [facility] accepts no responsibility for all my personal property including clothing, toilet articles, radios, jewelry, dentures, hearing aids, rings, money, or any other property that is in my possession or is brought to me after admission. I understand certain valuables may be placed in a hospital safe for a short period of time. I understand that the hospital is not liable for loss or damage due to accident, fire, or other natural occurrence while said property is in the safe. I accept full responsibility for any personal property that I keep with me, and will not hold the hospital responsible in case of loss or disappearance. I acknowledge that i have been encouraged to send valuables and belongings home. ?? Review of Valuable and Belonging List: With patient Date for Pt to Sign Valuables/Belongings: 04/22/24 01:22:00 ?? Other Discharge Information ? Pulmonary Rehab Status?? Pulmonary Rehab Discharge Status?? Respiratory Rate: 16 br/min ? Common Emergency Awareness Tips IS IT A STROKE? Act FAST and Check for these signs: FACE Does the face look uneven? ARM Does one arm drift down? SPEECH Does their speech sound strange? TIME Call 9-1-1 at any sign of stroke ?? Heart Attack Signs Chest discomfort: Most heart attacks involve discomfort in the center of the chest and lasts more than a few minutes, or goes away and comes back. It can feel like uncomfortable pressure, squeezing, fullness or pain. Discomfort in upper body: Symptoms can include pain or discomfort in one or both arms, back, neck, jaw or stomach. Shortness of breath: With or without discomfort. Other signs: Breaking out in a cold sweat, nausea, or lightheaded. Remember, MINUTES DO MATTER. If you experience any of these heart attack warning signs, call to get immediate medical attention! ?? Smoking can increase your chances of developing chronic health problems and can cause harmful effects to other family members in your house. If you smoke, you are strongly encouraged to quit. Please call [facility] at [phone] or [phone] ([phone]) or log in to [email or web address] for referrals to smoking cessation programs. ?? 965 Suicide & Crisis Lifeline is available 20/05 if you or someone you know needs to find a reason to keep living. By calling 334 you'll be connected to a skilled, trained counselor at a crisis center in your area. INPATIENT DISCHARGE INSTRUCTIONS SIGNATURE DAREN GUARDADO Location:[facility] Registration Date and Time:04/22/2024 00:09 EDT Primary Care Physician: Adebayo MARINELLI [facility] [place], Attending Physician: Wade MARINELLI Delfino Jas, I DAREN FITZGERALD, have received the above patient education materials/instructions and have verbalized understanding. If ambulance or transport services are being used I further acknowledge being given a choice of service. ?? If you need to contact me, please call me at this number: . Patient/Firearms Model Maker Name: Patient/Firearms Model Maker Signature: Relationship to Patient: Witness Name/Signature: Date: * Robyn Malone MD: PERFORM Event Display: Patient Education Leaflets Authored Date: [id number] Understanding Cirrhosis ?? [address] Understanding Cirrhosis Cirrhosis is a lifelong (chronic) liver problem. It results from damaged and scarred liver tissue. Cirrhosis can???t be cured. But it can be treated. The liver The liver is a large organ in the upper right part of the belly. A healthy liver breaks down proteins, carbohydrates, and fats. It makes a digestive fluid called bile. It also removes toxins from theblood. The liver is part of the blood-clotting process. ?? Causes of cirrhosis The causes of cirrhosis may include: ??? Alcohol use ??? Viral liver infections, such as hepatitis B and C ??? Chronic bile duct blockage ??? Some inherited diseases that cause too much copper or iron to be stored in the liver ??? Some medicines ??? Autoimmune disease Another cause is nonalcoholic fatty liver disease. This is very common. It often happens in people who have other risk factors linked to extra weight or obesity. These include: ??? Diabetes ??? High blood pressure ??? High cholesterol or triglycerides ??? Other metabolic problems ?? Common signs and symptoms Common symptoms of cirrhosis include: ??? Severe tiredness (fatigue) ??? Weakness ??? Low appetite ??? Upset stomach (nausea) and vomiting ??? Weight loss or weight gain ??? Yellowish skin and eyes (jaundice) ??? Severe itching ??? Swollen belly and legs ??? Mild pain in the right upper side of your belly ??? Intestinal bleeding ??? Easy skin bruising and bleeding ??? Enlarged (dilated) veins in the esophagus and stomach. This can lead to serious GI bleeding. ??? Poor mental function ??? Spider-like blood vessels ?? When you have cirrhosis When you have cirrhosis, your liver gets damaged and scarred. It doesn???t work as it should. In some cases, cirrhosis can lead to liver failure. If it does, you may need a liver transplant.??Cirrhosis puts you at higher risk for liver cancer. Other tests are needed to look for complications of cirrhosis and check for liver cancer. Keep all follow-up appointments with your provider. You can slow down cirrhosis and prevent more liver damage if you stop all alcohol use. Here are other changes you can make: ??? Lose extra weight ??? Control blood sugar if you have diabetes ??? Don't eat raw or uncooked shellfish, fish, meat, and unpasteurized dairy products ??? Limit salt in food and drinks ??? Talk with a dietitian for meal planning (due to risk of malnutrition) ??? Talk with your provider about all the medicines, vitamins, and supplements you take ??? Ask your provider if hepatitis A and B vaccines are right for you ?? Last Reviewed Date: 2023 ?? 6723-5241 [employer]. All rights reserved. This information is not intended as a substitute for professional medical care. Always follow your healthcare professional's instructions. ?? * Robyn Malone MD: PERFORM Event Display: Patient Education Leaflets Authored Date: [id number] Cirrhosis ?? [id number] Cirrhosis The liver is found on the right side of your belly (abdomen). It's??just below the rib cage. The liver has many important jobs. It removes toxins from the blood. It also helps your blood clot to stopbleeding.??Cirrhosis happens when the liver is scarred or injured. This damage is permanent. It cancause your liver to stop working??(liver failure).?? The most common causes of cirrhosis are long-term heavy alcohol use and having hepatitis B or C. Other causes include nonalcoholic steatohepatitis (OMALLEY, or fatty liver disease), autoimmune disease, hemochromatosis, toxins, certain medicines, and certain viruses. Common symptoms of cirrhosis include: ??? Tiredness or weakness ??? Loss of appetite ??? Nausea and vomiting ??? Easy bleeding and bruising ??? Swelling of the belly (abdomen) ??? Weight loss ??? Yellowing of the eyes or skin (jaundice) ??? Itching ??? Confusion Treatment helps ease symptoms and prevent more liver damage. You may also get treatment to fight??or cure the hepatitis virus. Quitting alcohol will help stop the disease from getting worse. It may also prevent complications. If cirrhosis gets worse and becomes life threatening,??you may need a??liver transplant.?? Home care ??? Don't take medicines that can make??liver damage worse.??Your healthcare provider will tell you??if any of the medicines you take need to be changed. Talk with your provider or pharmacist before taking any medicine not prescribed. These include any [id number] medicines, dietary s upplements,??and herbs. Some of these may make??liver damage worse. ??? Talk with your healthcare provider about??medicines that have??acetaminophen or NSAIDs such as ibuprofen and naproxen.??These can harm your liver??and kidneys. ??? Stop drinking alcohol.??If you??find it hard to stop drinking, seek professional help. Consider joining Alcoholics Anonymous??or another type of treatment program??for support. Ask your providers for detoxification information or rehabilitation centers. ??? If you use IV drugs, you are at high risk for hepatitis B and C. Seek help to stop.? Get regular exercise and maintain your weight in the normal range. Seek help from your provider if this is difficult for you. Treat any underlying metabolic conditions. This is very important because metabolic conditions such as obesity, high blood pressure, heart disease, diabetes, and high cholesterol can lead to liver disease or make it worse. ??? Be sure to ask your healthcare provider about recommended vacci hector. These include vaccines for viruses that can cause liver disease. ?? Follow-up care Follow up with your healthcare provider, or as advised. If you have cirrhosis, you may need testingto look for complications, including liver cancer. Keep follow-up appointments. Consistent trackingof your overall health and lab values is important. For more information and to learn about support groups for people with liver disease, contact: ??? [facility],?? www.liverfoundation.org ??? [facility], www.[facility]asldfoundation.org/patients ?? When to seek medical advice Call your healthcare provider right away if: ??? You rapidly gain weight, with increased size of your belly (abdomen) or leg swelling ??? Yellow color of your skin or eyes (jaundice) gets worse ??? You have excess bleeding from cuts or injuries ??? You have blood in your vomit or bleeding from yourrectum ?? Last Reviewed Date: 2022 ?? [id number] [employer]. All rights reserved. This information is not intended as a substitute for professional medical care. Always follow your healthcare professional's instructions. ?? * Robyn Malone MD: PERFORM Event Display: Patient Education Leaflets Authored Date: [id number] The Impact of Alcohol Use Disorder ?? 80248 The Impact of Alcohol Use Disorder Impact on the person, workplace, family, and society People with alcohol use disorder must cope with problems caused by their drinking. These include problems with health, family, and work. Drinking can lead to fear and guilt, anger and insecurity. People with alcoholism are often in denial about all of this. This means they do not admit they have a problem with alcohol. People with alcoholism have more accidents while at work. Their job performance may go down. And they are often absent or late. All this costs the company in lost time and medical care. It may also cost the company in property damage. Coworkers may need to fill in or cover up for a person with alcoholism. This can lead to anger. Alcoholism also affects the whole family. Family members may feel alone, neglected, or abused. Theymay become angry or distrustful. They may also feel embarrassment, guilt, or fear. These feelings can lead to a lot of stress and upset in a family. People with alcoholism are more often involved in traffic accidents. Other types of accidents and fires are also common. They more often abuse their children and spouses. And they are more likely to hurt or kill someone else or themselves. The human cost of these problems is huge. So is the financial cost. Alcoholism costs the [place] billions of dollars every year. These costs are in the form of medical expenses and high insurance premiums. They are also in the form of property damage. ?? What you can do If you are a coworker, family member, or friend, you can help. Start by learning more about alcoholism and its effects. Learn the warning signs. And reach out for support. If a person with alcoholismwill not get help, you can still join a support group and gather resources. One of the best things you can do is to not be an enabler. That is, you can't make excuses for people who drink. This can he lp force them to take responsibility for their own actions. Alcoholism affects not just the person who drinks. It also affects family and friendships. It affects the workplace and schools. And it affects the community. ?? Last Reviewed Date: 2021 ?? 8217-7880 [employer]. All rights reserved. This information is not intended as a substitute for professional medical care. Always follow your healthcare professional's instructions. ?? Patient Care team information Care Team Personnel Name: Melva Ochoa RN Position: [facility] RN Member Role: Primary Care Nurse Name: Tiffanie Fall RN Position: [facility] RN Member Role: Primary Care Nurse Name: Mateus Vu RN Position: [facility] RN Member Role: Primary Care Nurse Name: Hazel Rivero MD Position: [facility] POCKET MACHINE OPERATOR MD Member Role: [employer]etime POCKET MACHINE OPERATOR Physician Address: Address: [address] [facility] [place] [address]- [place] Name: Angela Almaguer RN Position: [facility] RN Member Role: Primary Care Nurse Name: Rebekah Fiore MD Position: Reference Physician Member Role: PCP Address: Address: [address] [place] [address]- Name: Digna Roque RN Position: [facility] RN Member Role: Primary Care Nurse Name: Klever Roblero RN Position: [facility] RN Member Role: Primary Care Nurse Name: Cynthia Steven RN Position: [facility] RN Supv Member Role: Primary Care Nurse Name: Seun Segura RN Position: S RN Member Role: Primary Care Nurse Name: Jerrica Melton RN Position: S RN Member Role: Primary Care Nurse Name: Terry Sanchez RN Position: [facility] RN Member Role: Primary Care Nurse Care Team Related Persons Name: JUAN RAMON FITZGERALD Address: [facility] [address] [place] [id number] Name: OLGA PRINGLE Address: [address] [address] Name: NICK POON
--- OUTSIDE RECORDS SUMMARY | 2024-09-25 19:00 | XMS_ITS | Continuity of Care Document ---
Author Organization [facility] ter Address [address] [place] [id number]- Care Team Providers Care Freelance Patternmaker Name Role Phone Flores MARINELLI, Tony Parekh Primary Care Physician [place] [facility] [place] 05/10[place]23 - 05/10/[address] [address]- Discharge Disposition: A-D/C Walkout Attending Physician: Not on Staff, Attending MD Admitting Physician: Not on Staff, Admitting MD Referring Physician: Not on Staff, Referring MD Allergies, Adverse Reactions, Alerts Substance Reaction Severity Status Compazine rash masking effect Active Cats hives rash Active Dust hives Active LaMICtal rash Active Immunizations Given and Recorded Vaccine Date Status Refusal Reason tetanus/diphtheria/pertussis, acel(Tdap) 11/16/14 Given influenza virus vaccine, inactivated 1 08/05/14 Gi ladan 1Result Comment: [08/05/2014] VIS given to pt. Pt denies past reaction, egg allergy, hx GBS. Medications albuterol 90 mcg/inh inhalation powder 2 puffs, Inhalation, Every 4 hours, PRN as needed, # 1 each, 0 Refills, Maintenance, 11/07/16 16:09:07, Powder, 2 puffs Inhalation Every 4 hours,PRN:as needed Start Date: 11/07/16 Status: Ordered Clonazepam By Mouth, 3 times a day, 0 Refills, Maintenance, 02/03/18 16:50:21 EDT Start Date: 02/03/18 Status: Ordered Clonidine 0 Refills, Maintenance, 02/03/18 16:50:04 EDT Start Date: 02/03/18 Status: Ordered Suboxone 12 mg-3 mg sublingual film See Instructions, 0 Refills, Maintenance, 10/02/17 13:16:31 Start Date: 07/29/17 Status: Ordered Sumatriptan Once, 0 Refills, Maintenance, 02/03/18 16:50:14 EDT Start Date: 02/03/18 Status: Ordered Problem List Condition Confirmation Course Effective Dates Status H ealth Status Informant LGSIL (low grade squamous intraepithelial dysplasia) Confirmed Active Eating disorder Confirmed Active Hip pain Confirmed Active Obesity Confirmed Active PTSD - Post-traumatic stress disorder Confirmed Active Vital Signs Most recent to oldest [Reference Range]: 1 2 Height 165 cm (05/10/23 8:48 PM) Weight 85.8 kg (05/10/23 8:48 PM) Oxygen Saturation [94-100 %] 95 % (05/10/23 7:59 PM) Pulse Rate [55-90 bpm] 79 bpm (05/10/23 7:59 PM) Blood Pressure [90-138/55-84 mm Hg] 134/ 77mm Hg (05/10/23 7:59 PM) Temperature [96.8-100.4 DegF] 98.4 DegF (05/10/23 7:59 PM) Mode of Delivery (Oxygen) Room air (05/10/23 7:59 PM) Blood pressure sites Arm, left (05/10/23 7:59 PM) Temperature Route Oral (05/10/23 7:59 PM) Dry Weight 85.8 kg (05/10/23 8:48 PM) 85.8 kg (05/10/23 7:59 PM) Dry Weight Obtained Via Standing scale (05/10/23 7:59 PM) Social History Social History Type Response Smoking Status Current every day sm oker; Type: Cigarettes; Other: 1 pack a week; entered on: 02/03/18 Sex Patient Care team information Care Team Personnel Name: Hazel Rivero MD Position: [facility] ORTHOPHOTOGRAPHY TECHNICIAN MD Member Role: Lifetime ORTHOPHOTOGRAPHY TECHNICIAN Physician Address: Address: [address] [address] [place] [address]- Name: Tony Tanner MD Position: [facility] Outreach Member Role: PCP Address: Address: [address] [place], [place] [address] Care Team Related Persons Name: JUAN RAMON GOLD Address: home [address] [place] [id number] Name: PINO OLGA Address: home [address] [place] [address]
--- OUTSIDE RECORDS SUMMARY | 2024-09-25 19:00 | XMS_ITS | Continuity of Care Document ---
Author Organization [facility] ter Address [address] [place] [id number] Care Team Providers Care [facility] Name Role Phone Adebayo MARINELLI, Rebekah Primary Care Physician Encounter [facility] [place] Date(s): 03/14/24 - 03/17/[address] [address] Discharge Disposition: A-D/C Home Attending Physician: Mitch eDe MD Admitting Physician: Alice Fuentes MD Referring Physician: Not on Staff, Referring MD Allergies, Adverse Reactions, Alerts Substance Reaction Severity Status Compazine rash masking effect Active Cats hives rash Active LaMICtal rash Active Dust hives Active Immunizations Given and Recorded Vaccine Date [...] meals, # 90 each, 0 Refills, Maintenance, 03/17/24 10:46:00 EDT, Tablet, [facility], Partial fill upon patient request if the prescription is for a schedule II opioid drug., 163, cm, 03/17/24 10:13:... Start Date: 03/17/24 Status: Ordered albuterol 90 mcg/inh inhalation powder 2 puffs, Inhalation, Every 4 hours, PRN as needed, # 1 each, 0 Refills, Maintenance, 11/07/16 16:09:07, Powder, 2 puffs Inhalation Every 4 hours,PRN:as needed Start Date: 11/07/16 Status: Ordered albuterol CFC free 90 mcg/inh inhalation aerosol 2, puffs, Inhalation, 4 times a day, PRN, # 6.7 Gm, Refills 0, Tot. Refills 0, Maintenance, 11/10/23 16:46:00 EST, Aerosol, Route to Pharmacy Electronically, [id number], [facility]/pharmacy #[id number], 162, cm, 11/10/23 13:45:00 EST, Hei... Start Date: 11/10/23 Status: Ordered Creon 36,000 units oral delayed release capsule 1 capsule, By Mouth, 3 times a day, # 30 capsule, 0 Refills, Maintenance, 11/10/23 16:48:00 EST, [facility]/pharmacy #[id number], Partial fill upon patient request if the prescription is for a schedule II opioid drug., 1 capsule By Mouth 3 times a day, 162, cm, 01... Start Date: 11/10/23 Status: Ordered gabapentin 300 mg oral capsule 600 mg, Capsule, By Mouth, 03/17/24 15:00:00 EDT Start Date: 03/17/24 Stop Date: 03/17/24 Status: Completed gabapentin 300 mg oral capsule 600 mg, Capsule, By Mouth, 03/17/24 9:00:00 EDT Start Date: 03/17/24 Stop Date: 03/17/24 Status: Completed gabapentin 600 mg oral tablet 1 tablet = 600 mg, By Mouth, 3 times a day, # 270 tablet, 0 Refills, Maintenance, 10/02/23 18:53:00EST, Tablet, Partial fill upon patient request if the prescription is for a schedule II opioid drug. Start Date: 10/02/23 Status: Ordered hydrOXYzine hydrochloride 25 mg oral tablet 1 [...] opioid drug. Start Date: 11/30/23 Status: Ordered Methadone = 130 mg, By Mouth, Daily, 0 Refills, Maintenance, 03/10/24 11:12:00 EDT, Partial fill upon patientrequest if the prescription is for a schedule II opioid drug. Start Date: 03/10/24 Status: Ordered Methadone Tablet 130 mg, Tablet, By Mouth, 03/17/24 9:00:00 EDT Start Date: 03/17/24 Stop Date: 03/17/24 Status: Completed Multivitamin Tablet 1 tablet, By Mouth, Daily, 0 Refills, Maintenance, 11/30/23 22:01:00 EST, Tablet, Partial fill uponpatient request if the prescription is for a schedule II opioid drug. Start Date: 11/30/23 Status: Ordered pantoprazole 40 mg oral delayed release tablet 1 tablet = 40 mg, By Mouth, Daily, # 30 tablet, 0 Refills, Maintenance, 10/02/23 19:25:00 EST, EC Tablet Start Date: 10/02/23 Status: Ordered PARoxetine 20 mg oral tablet 20 mg, 1, tablet, By Mouth, Daily, # 30 tablet, Refills 0, Maintenance, 10/02/23 18:53:00 EST, Partial fill upon patient request if the prescription is for a schedule II opioid drug. Start Date: 10/02/23 Status: Ordered polyethylene glycol 3350 oral powder for reconstitution = 17 Gm, By Mouth, Daily, dissolve in 4 to 8 oz of beverage, # 238 Gm, 0 Refills, Maintenance, 03/17/24 10:45:00 EDT, REC Powder, [facility], Partial fill upon patient request if the prescription is for a schedule II opioid drug., 17 Gm... Start Date: 03/17/24 Status: Ordered senna 187 mg oral tablet 1 tablet = 8.6 mg, By Mouth, 2 times a day, PRN Constipation, # 25 tablet, 0 Refills, Maintenance, 03/17/24 10:45:00 EDT, Tablet, [facility], Partial fill upon patient [...] Active Hyperbilirubinemia Confirmed Active Hypokalemia Confirmed Active Hypokalemia Confirmed Active Lactic acid acidosis Confirmed Active Obese class I Confirmed Active Obesity Confirmed Active PTSD - Post-traumatic stress disorder Confirmed Active Vital Signs Most recent to oldest [Reference Range]: 1 2 3 4 Height 163 cm (03/17/24 10:13 AM) 163 cm (03/17/24 6:00 AM) 163 cm (03/16/24 11:00 PM) Weight 89.0 kg (03/16/24 4:08 AM) 88.1 kg (03/15/24 3:39 PM) 88.2 kg (03/15/24 10:10 AM) Oxygen Saturation [94-100 %] 94 % (03/17/24 10:13 AM) 95 % (03/17/24 6:00 AM) 94 % (03/16/24 11:00 PM) Pulse Rate [55-90 bpm] 84 bpm (03/17/24 10:13 AM) 66 bpm (03/17/24 6:00 AM) 80 bpm (03/16/24 11:00 PM) Body Mass Index [18.5-24.99 kg/m2] 33.16 kg/m2 *>HHI* (03/15/24 3:39 PM) 32.82 kg/m2 *>HHI* (03/14/24 9:09 PM) Blood Pressure [90-138/55-84 mm Hg] 116/66mm Hg (03/17/24 10:13 AM) 115/76mm Hg (03/17/24 6:00 AM) 105/62mm Hg (03/16/24 11:00 PM) Respiratory Rate [16-30 br/min] 18 br/min (03/17/24 3:43 PM) 20 br/min (03/17/24 10:13 AM) 18 br/min (03/17/24 8:34 AM) 18 br/min (03/17/24 8:34 AM) Temperature [96.8-100.4 DegF] 98.1 DegF (03/17/24 10:13 AM) 98.9 DegF (03/17/24 6:00 AM) 98.5 DegF (03/16/24 11:00 PM) Liters per Minute 1 L/min (03/16/24 11:05 AM) 1 L/min (03/16/24 10:17 AM) 3 L/min (03/15/24 3:39 PM) Mode of Delivery (Oxygen) Room air (03/17/24 10:13 AM) Room air (03/17/24 6:00 AM) Room air (03/16/24 11:00 PM) Blood pressure sites Arm, right (03/17/24 10:13 AM) Arm, left (03/17/24 6:00 AM) Arm, left (03/16/24 11:00 PM) Temperature Route Oral (03/17/24 10:13 AM) Oral (03/17/24 6:00 AM) Oral (03/16/24 11:00 PM) Dry Weight 88.1 kg (03/15/24 3:39 PM) 87.2 kg (03/14/24 9:09 PM) Weight Obtained Via Bed scale (03/16/24 4:08 AM) Social History Social History Type Response Smoking Status Former smoker, quit more than 30 days ago entered on: 03/10/24 Sex Admission evaluation note * Avinash MARINELLI, Marc Carrizales: PERFORM Event Display: Admission Note Authored Date: [id number] Patient: ??DAREN FITZGERALD ? Age:??44 Years?Sex:??Female?:??1980?? Chief Complaint/Reason for Consultation somnolence History of Present Illness Ms. Fitzgerald is a 44-year-old lady with a PMH of reactive airway disease/asthma, alcohol abuse, polysubstance abuse(currently on methadone 130 mg daily), cirrhosis, PTSD, and chronic pancreatitis who initially presented for evaluation of 3 days of N/V, and abdominal pain and is now transferred from [facility] for somnolence with hypercarbic respiratory failure. ?? On initial presentation to [facility] she reported that she had been off of alcohol for some time, however3 weeks prior she relapsed, and was having nips of alcohol daily. Upon arrival CT scan of the abdomen and pelvis was notable for her previously known cirrhotic liver. Her initial CIWA score was 29 and she was admitted for alcohol withdrawal with significant improvement in her symptoms. The patient does have some baseline anxiety which is persistent however no longer in active alcohol withdrawal. The patient has been maintained on her home methadone 130 mg daily for previous opioid abuse. The patient has been requiring supplemental oxygen intermittently throughout her hospitalization, however on 03/14 the patient became increasingly somnolent reporting worsening dyspnea and fatigue. CXR no active disease in chest. ABG with hypoxia hypercarbia. Suspect patient likely has underlying obstructive sleep apnea, information obtained from patients mother at home snores very heavily throughout night and very fatigued sleeping frequently throughout day. She is in no respiratory distress attime of transfer. Patient was upgraded to intermediate level care giving staffing issues was transferred to [facility] in [place] for ongoing care. ?? On my evaluation patient was alert and oriented to person, place and time on BiPAP. Repeat ABG showed some improvement, CO2 down from 56 to 53. She was weaned off BiPAP and was fully awake and conversant, complained of abdominal pain and requesting pain medication. Recent CT abdomen on 03/09 showed no acute process. Review of Systems All systems reviewed and negative except as indicated in HPI. Objective Vital Signs?? Temperature: 97.7 DegF (03/15/24 04:00:00) Temperature Route: Axillary (03/15/24 04:00:00) Pulse Rate: 74 bpm (03/15/24 00:00:00) Heart Rate Monitored: 87 bpm (03/15/24 01:00:00) Respiratory Rate:??15 br/min??Low (03/15/24 04:44:00) Systolic Blood Pressure: 114 mm Hg (03/15/24 00:00:00) Diastolic Blood Pressure: 75 mm Hg (03/15/24 00:00:00) Blood pressure sites: Arm, left (03/14/24 21:09:00) Mean Arterial Pressure: 91 mm Hg (03/14/24 21:09:00) Pulse Pressure: 39 mm Hg (03/15/24 00:00:00) Oxygen Saturation: 94 % (03/15/24 04:00:00) Liters per Minute: 3 L/min (03/15/24 01:00:00) Mode of Delivery (Oxygen): Nasal cannula (03/15/24 01:00:00) FiO2: 35 % (03/15/24 00:20:00) Early Warning Score:??10??Critical (03/15/24 04:48:25) ? Intake/Output? No Data Available ? Physical Exam Constitutional: Alert, in no acute distress. Head EENT: Extraocular muscle movement intact.??Moist mucous membranes.?? Neck: Supple. No JVD. Respiratory: On BiPAP. Clear to auscultation. No wheezing or crackles. No use of accessory muscles. Cardiovascular: S1S2 regular. No murmurs, rubs or gallops. Gastrointestinal: Abdomen soft, non-tender, non-distended. Normal bowel sounds. Genitourinary: No CVA tenderness. Extremities: No lower extremity pitting??edema. No cyanosis or clubbing. Neurologic: AAOx3, Speech normal. No focal neurological deficits. Skin: No rash. Psychiatric: Normal mood and affect Assessment/Plan 44-year-old lady with a PMH of reactive airway disease/asthma, alcohol abuse, polysubstance abuse(currently on methadone 130 mg daily), cirrhosis, PTSD, and chronic pancreatitis who initially presented for evaluation of 3 days of N/V, and abdominal pain and is now transferred from [facility] for somnolence with hypercarbic respiratory failure. ?? Acute respiratory failure with hypoxia and hypercarbia (J96.01) ?Grouped with??Somnolence (R40.0),??Hypercarbia (R06.89),??Obesity (E66.9),??Snoring (R06.83) ? Noted to become increasingly somnolent 03/14 Chest x-ray unremarkable ABG??with hypoxia??and hypercarbia Per pt's mother, has apneic episodes with snoring at home and frequently sleepy throughout the day Initiated BiPAP - [facility] - outpatient sleep study - wean BiPAP as tolerated - may also have become somnolent after receiving Dilaudid, holding ?? Chronic pancreatitis (K86.1) ?Grouped with??Abdominal pain (R10.9) ? Improved.??Tolerating small amounts of regular diet.??Typically only eats 1 meal a day at home Continue pancrelipase Oxycodone PRN ?? Methadone use (F11.90):??Continue methadone 130 mg daily.??QTc WNL.??Follow-up addiction medicine outpatient. ?? Code status: full DVT ppx:??lovenox Diet: regular Dispo:??intercare ?? Total Visit Time: I personally spent a total of 80 minutes, including both prcf-nw-[id number] and wwp-mrwi-[id number]-face time on the date of the encounter, addressing the above diagnoses. Activities performed in this time include chart review, obtaining / reviewing history, performing amedically necessary evaluation, documentation and counseling. ?? Marc Da Silva MD Bar [facility] B[facility]er 7p-7a After 7 am please contact day time provider for questions/consult updates. ? Histories Past Medical History/Problem List Active Problems(16) Abdominal [...] Pat. Grandmother: Cancer ? Medications Home Medications Albuterol (albuterol 90 mcg/inh inhalation powder)?2?puff(s)?Inhalation?Every 4 hours?as needed?as needed Albuterol (albuterol CFC free 90 mcg/inh inhalation [...] mg oral capsule)?1?capsule?500?Milligram?By Mouth?Daily Methadone (methadone 10 mg oral tablet)?130?Milligram?By Mouth?Daily Methadone?130?Milligram?By Mouth?Daily Multivitamin (Multivitamin Tablet)?1?tab(s)?By Mouth?Daily Pancrelipase (Creon 36,000 units oral delayed release capsule)?1?capsule?By Mouth?3 times a day Pantoprazole (pantoprazole 40 mg oral delayed release tablet)?1?tab(s)?40?Milligram?By Mouth?Daily Paroxetine (PARoxetine 20 mg oral tablet)?20?Milligram?1?tablet?By Mouth?Daily Sumatriptan (SUMAtriptan 50 mg oral tablet)?1?tab(s)?50?Milligram?By Mouth?Daily?as needed?for migraine headache?may repeat dose after 2 hours up to a maximum of 2 Trazodone (traZODone 50 mg oral tablet)?50?Milligram?1?tablet?By Mouth?Daily at bedtime?as needed?Sleep ? Inpatient Medications Medications (15) Active SCHEDULED: (6) Enoxaparin 40 mg Inj (Enoxaparin Inj) ??40 mg 0.4 mL, Subcutaneous Injection, Daily NaCl 0.9% Flush 3ml (NaCL 0.9% Flush) ??3 mL, IV Push, Every 8 hours Pancrelipase 15,000 unit Capsule (Pancrelipase Capsule) ??15,000 units 1 capsule, By Mouth, 3 timesa day with meals Pancrelipase 20,000 unit Capsule (Pancrelipase Capsule) ??20,000 units 1 capsule, By Mouth, 3 timesa day with meals Pantoprazole 40 mg EC Tablet (pantoprazole 40 mg oral delayed release tablet) ??40 mg, By Mouth, Daily Paroxetine 20 mg Tablet (PARoxetine 20 mg oral tablet) ??20 mg, By Mouth, Daily CONTINUOUS: (0) PRN: (9) Acetaminophen 325 mg Tablet (Acetaminophen Tablet) ??650 mg, By Mouth, Every 4 hours Dextromethorphan-Guaifenesin 20 mg-200 mg/10 mL Liqu UD (Robitussin DM Liquid) ??10 mL, By Mouth, Every 4 hours Docusate Sodium 100 mg Capsule (Docusate Sodium Capsule) ??100 mg 1 capsule, By Mouth, 2 times a day Melatonin 3 mg Tablet (Melatonin Tablet) ??3 mg, By Mouth, Daily at bedtime NaCl 0.9% Flush 3ml (NaCL 0.9% Flush) ??3 mL, IV Push, Every 8 hours OxyCODONE 5 mg IR Tablet (oxyCODONE 5 mg oral tablet) ??5 mg, By Mouth, Every 6 hours Polyethylene Glycol 17 Gm Powder (MiraLax Powder) ??17 Gm 1 pack/packet, By Mouth, Daily Senna Tablet ??8.6 mg 1 tablet, By Mouth, 2 times a day Simethicone 80 mg Chewable Tablet (Simethicone Tablet) ??80 mg, Chew, 3 times a day ? Results Recent Labs BLOOD COUNT & DIFF WBC 3.0 k/mm3 (Low)?? 03/15/2024 00:47 RBC 3.58 m/mm3 (Low)?? 03/15/2024 00:47 Hgb 10.2 Gm/dL (Low)?? 03/15/2024 00:47 Hct 33.4 % (Low)?? 03/15/2024 00:47 MCV 93.3 femtoliters ()?? 03/15/2024 00:47 MCH 28.5 pg ()?? 03/15/2024 00:47 MCHC 30.5 g/dL (Low)?? 03/15/2024 00:47 Platelet Count 79 k/mm3 (Low)?? 03/15/2024 00:47 RDW-SD 54.2 femtoliters (High)?? 03/15/2024 00:47 MPV 10.5 femtoliters ()?? 03/15/2024 00:47 Nucleated RBC (Automated) 0.0 #/100 WBC'S ()?? 03/15/2024 00:47 Abs. NRBC 0.0 k/mm3 ()?? 03/15/2024 00:47 Abs. Neut 1.5 k/mm3 ()?? 03/15/2024 00:47 Abs. Lymph 1.0 k/mm3 ()?? 03/15/2024 00:47 Abs. [place] 0.3 k/mm3 (Low)?? 03/15/2024 00:47 Abs. Eo 0.1 k/mm3 ()?? 03/15/2024 00:47 Abs. Baso 0.0 k/mm3 ()?? 03/15/2024 00:47 Neut % 52.1 % ()?? 03/15/2024 00:47 Lymph % 32.1 % ()?? 03/15/2024 00:47 [place] % 9.8 % ()?? 03/15/2024 00:47 Eos % 4.7 % ()?? 03/15/2024 00:47 Baso % 1.0 % ()?? 03/15/2024 00:47 Imm Gran 0.3 % ()?? 03/15/2024 00:47 Abs. Imm Gran 0.0 k/mm3 ()?? 03/15/2024 00:47 ?? BLOOD GAS pH 7.37 ()?? 03/14/2024 23:50 pCO2 53 mm Hg (High)?? 03/14/2024 23:50 pO2 108 mm Hg (High)?? 03/14/2024 23:50 Bicarbonate, Estimated 30 mmol/L (High)?? 03/14/2024 23:50 Specimen Type - Blood Gas ARTERIAL ()?? 03/14/2024 23:50 Percent O2 (FIO2) 35 ()?? 03/14/2024 23:50 ?? CHEM GENERAL Sodium 138 mmol/L ()?? 03/15/2024 00:47 Potassium 4.3 mmol/L ()?? 03/15/2024 00:47 Chloride 103 mmol/L ()?? 03/15/2024 00:47 Bicarbonate Level 26 mmol/L ()?? 03/15/2024 00:47 Anion Gap 9 ()?? 03/15/2024 00:47 Glucose Level 108 mg/dL (High)?? 03/15/2024 00:47 BUN 10 mg/dL ()?? 03/15/2024 00:47 Creatinine-Blood 0.67 mg/dL ()?? 03/15/2024 00:47 Estimated GFR Creatinine 110 ML/MIN/1.73 M2 ()?? 03/15/2024 00:47 Calcium 9.1 mg/dL ()?? 03/15/2024 00:47 Phosphorus 4.6 mg/dL (High)?? 03/15/2024 00:47 Magnesium 1.9 mg/dL ()?? 03/15/2024 00:47 Protein, Total 6.5 Gm/dL ()?? 03/15/2024 00:47 Albumin 3.2 Gm/dL (Low)?? 03/15/2024 00:47 AG Ratio 1.0 ()?? 03/15/2024 00:47 Alkaline Phosphatase 71 units/L ()?? 03/15/2024 00:47 AST (SGOT) 64 units/L (High)?? 03/15/2024 00:47 ALT (SGPT) 21 units/L ()?? 03/15/2024 00:47 Bilirubin, Total 0.7 mg/dL ()?? 03/15/2024 00:47 ?? HEME OTHER Hold Lavender Top SPECIMEN DISCARDED AFTER 24 HOURS. ()?? 03/14/2024 05:46 ?? URINE OTHER Est Creatinine Clearance 92.23 mL/min ()?? 03/15/2024 01:56 ? Blood Glucose Trend Glucose Level:??108 mg/dL??High (03/15/24 00:47:00) ? CBC, CBC w/Diff?? CBC?? Differential?? WBC:??3 k/mm3??Low (:47) Abs. Neut: 1.5 k/mm3 (00:47) RBC:??3.58 m/mm3??Low (00:47) Abs. Lymph: 1 k/mm3 (:47) Hct:??33.4 %??Low (00:47) Abs. [place]oldt:??0.3 k/mm3??Low (00:47) RDW-SD:??54.2 femtoliters??High (00:47) Abs. Eo: 0.1 k/mm3 (00:47) Nucleated RBC (Automated): 0 #/100 WBC'S (:47) Abs. Baso: 0 k/mm3 (00:47) Abs. NRBC: 0 k/mm3 (00:47) Neut %: 52.1 % (00:47) ?? Lymph %: 32.1 % (00:47) ?? [place]t %: 9.8 % (00:47) ?? Eos %: 4.7 % (00:47) ?? Baso %: 1 % (00:47) ?? Imm Gran: 0.3 % (00:47) ?? Abs. Imm Gran: 0 k/mm3 (00:47) ? LFT Albumin:??3.2 Gm/dL??Low (00:47) Alkaline Phosphatase: 71 units/L (00:47) ALT (SGPT): 21 units/L (00:47) AST (SGOT):??64 units/L??High (00:47) Bilirubin, Total: 0.7 mg/dL (00:47) ?? Urinalysis Est Creatinine Clearance: 92.23 mL/min (01:56) ? Blood Gases pH: 7.37 (23:50) pCO2:??53 mm Hg??High (23:50) pO2:??108 mm Hg??High (23:50) Bicarbonate, Estimated:??30 mmol/L??High (23:50) Specimen Type - Blood Gas: ARTERIAL (23:50) Percent O2 (FIO2): 35 (23:50) ? Cardiology * Event Display: Cardiac Rhythm Strips Authored Date: * Event Display: Cardiac Rhythm Strips Authored Date: Hospital Progress note * Digna Roque RN: VERIFY, PERFORM, SIGN Event Display: Progress Note Hospital Authored Date: Patient: DAREN FITZGERALD Age: 44 years Sex: Female : 1980 Associated Diagnoses: None Author: Digna Roque RN Findings Evaluation Pt is A&Ox3, able to make needs known. Denies having any pain. received scheduled am meds. Pt moving to S3 for DC today. See CIS for further details. . Discharge Information Case Management Discharge Plan : Case Management Discharge Plan Data 03/17/2024 9:51 EDT Discharge Level of Care at Discharge Home/Alf/Foster Care 03/14/2024 21:48 EDT Discharge Level of Care at Discharge Short-term Acute Inpatient Pulmonary Rehab Discharge : Pulmonary Rehab Discharge Status 03/15/2024 0:20 EDT CPAP/BiPAP Mask Type Full CPAP/BiPAP Mask Size Medium 03/14/2024 21:12 EDT CPAP/BiPAP Mask Type Full CPAP/BiPAP Mask Size Medium 03/14/2024 16:17 EDT CPAP/BiPAP Mask Type Full CPAP/BiPAP Mask Size Medium * Sherie Shine RN: PERFORM, SIGN, VERIFY Event Display: Progress Note Hospital Authored Date: Patient: DAREN FITZGERALD Age: 44 years Sex: Female : 1980 Associated Diagnoses: None Author: Sherie Shine RN Findings Problem Related to Alteration in Psychosocial : Alteration in Psychosocial Function/new 03/16/2024 15:00 EDT Alteration in Psychosocial Related to Acute Alcohol Withdrawal Goals & Outcomes, Psychosocial Psychosocial support will be provided to Pt/S.O. as needed, Pt will identify stressors leading up to event, Pt will state importance of adhering to medication regime, Pt/caregiver will be offered appropriate resources & support, Pt/caregiver will express feelings/needs/fears /concerns, Pt/caregiver will maintain/obtain psychological stability Interventions, Psychosocial Assess psychosocial needs, Assess readiness to learn needed lifestyle changes, Assess/monitor level of consciousness, Collaborate with provider for psychiatric consult, Evaluate resources & support system available to pt, Offer support; discuss coping strategies, Provide a calm, supportive environment, Provide chances to express concerns/emotions/expectations, Provide info on community resources for education, support, Provide information about illness and recovery, Provide verbal limits if pt's behavior escalates, Identify complications of chronic alcohol use,Assess for complications related to acute alcohol withdrawal, Determine pt's stage of withdrawal asper CIWA scale, Encourage pt to continue to detox, Initiate & maintain Seizure Precautions, Minimize stimulation, Minimize stressors, Offer clergy, AA sponsor, counselor support, Offer support topt/S.O. during acute alcohol withdrawal Goals/Interventions, Psychosocial Yes Psychosocial, Problem Start 03/15/2024 13:43 Reviewed Plan with, Psychosocial Patient Patient Progression, Psychosocial Pt progressing according to plan . Alteration in Respiratory Function (new) : Alteration in Respiratory Function/new 03/16/2024 15:00 EDT Alteration in Resp Status Related to Other: hypoxia Goals & Outcomes, Respiratory Pt will maintain/resume baseline physical assessment, Pt will maintain adequate nutritional intake, Pt will maintain/resume normal fluid/electrolyte balance, Pt willnot develop complications r/t immobility Interventions, Respiratory Assess for and report S&S of respiratory distress, Initiate VAP prevention strategies, Position for comfort & optimal oxygenation, Teach/encourage use of incentive spirometer Goals/Interventions, Respiratory Yes Respiratory, Problem Start 03/15/2024 13:43 Reviewed Plan with, Respiratory Patient Patient Progression, Respiratory Patient progressing according to plan . Nursing Data Gastrointestinal Data. : Gastrointestinal Data. 03/16/2024 9:00 EDT Gastrointestinal Symptoms Constipation Abdomen Soft, Tender, Round LLQ Tenderness To palpation, At rest RLQ Tenderness To palpation, At rest Bowel Sounds LUQ Present Bowel Sounds RUQ Present Bowel Sounds LLQ Present Bowel Sounds RLQ Present Ostomy present No Gastric tube present No Gastrointestinal Comment prn bowel meds given, fluids encoruaged GI WNL except . Integumentary Data. : Integumentary Data. 03/15/2024 22:06 EDT Skin Integrity Intact . Musculoskeletal Data. : Musculoskeletal Data.. Respiratory/Pulmonary Data. : Respiratory/Pulmonary Data. 03/16/2024 9:00 EDT Respiratory Symptoms Dyspnea with exertion Respiratory effort Shallow Chest expansion Symmetrical Accessory Muscles use No Respiratory Assessment Comment Respiratory Assessment Comment Cough No cough Respiratory pattern Regular Right Middle Lobe Breath Sounds Diminished Left Lower Lobe Breath Sounds Diminished Right Lower Lobe Breath Sounds Diminished Respiratory distress None Respiratory Treatment(s) Cough and deep breathe, Incentive spirometry Tracheostomy/tracheal device present No Respiratory WNL except . Vital Signs : VITAL SIGNS SECTION 03/16/2024 11:05 EDT Early Warning Score 9.00 03/16/2024 11:05 EDT Temperature 98.2 DegF Temperature Route Oral Pulse Rate 66 bpm Respiratory Rate 20 br/min Systolic Blood Pressure 97 mm Hg Diastolic Blood Pressure 59 mm Hg Blood pressure sites Arm, right Mean Arterial Pressure 72 mm Hg Pulse Pressure 38 mm Hg Oxygen Saturation 95 % Liters per Minute 1 L/min Mode of Delivery (Oxygen) Nasal cannula . Narrative/Incidental pt a/o x3, makes needs known appropriately. pt quiet and keeps to self, however appropriate. resting most of the day and she states she did not sleep last night, easily arousable. LS dim @ bases. pt endorsing mild sob on exertion. weaned from 3L to 1L this shift. [id number] with ease and encouraged + BS, last recorded BM=03/07, ?accurate, pt does not remember last BM, prn bowel reg given and MD notifid voiding without issue, denies dyuria VSS. safety maintaineed. cb within reach. purposful rounding preformed. . Discharge Information Case Management Discharge Plan : Case Management Discharge Plan Data 03/14/2024 21:48 EDT Discharge Level of Care at Discharge Short-term Acute Inpatient Pulmonary Rehab Discharge : Pulmonary Rehab Discharge Status 03/15/2024 0:20 EDT CPAP/BiPAP Mask Type Full CPAP/BiPAP Mask Size Medium 03/14/2024 21:12 EDT CPAP/BiPAP Mask Type Full CPAP/BiPAP Mask Size Medium 03/14/2024 16:17 EDT CPAP/BiPAP Mask Type Full CPAP/BiPAP Mask Size Medium * Chinmay Garcia DO: PERFORM, MODIFY, MODIFY, MODIFY Event Display: Progress Note Hospital Authored Date: Patient: ??DAREN FITZGERALD ? Age:??44 Years?Sex:??Female?:??1980?? Subjective No acute overnight events.?? Vitals remarkable for persistent oxygen requirement of 2 L.?? Labs significant for stable CBC with stable CMP. Continues to endorse epigastric pain although denies tremors/restlessness.? Interval: ??? Addiction recs acamprosate 666 3 times daily ??? Ween oxygen requirements Review of Systems Except as listed above.?? Objective Vital Signs?? Temperature: 98.4 DegF (03/16/24 04:09:00) Temperature Route: Oral (03/16/24 04:09:00) Pulse Rate: 73 bpm (03/16/24 04:09:00) Heart Rate Monitored: 78 bpm (03/15/24 14:00:00) Respiratory Rate: 16 br/min (03/16/24 09:14:00) Systolic Blood Pressure: 103 mm Hg (03/16/24 04:09:00) Diastolic Blood Pressure: 62 mm Hg (03/16/24 04:09:00) Blood pressure sites: Arm, left (03/16/24 04:09:00) Mean Arterial Pressure: 76 mm Hg (03/16/24 04:09:00) Pulse Pressure: 41 mm Hg (03/16/24 04:09:00) Oxygen Saturation:??92 %??Low (03/16/24 04:09:00) Liters per Minute: 3 L/min (03/15/24 15:39:00) Mode of Delivery (Oxygen): Room air (03/16/24 04:09:00) Early Warning Score: 8 (03/16/24 09:16:03) ? Ventilator Settings?? No qualifying data available. ?? Intake/Output? 03/14 20:40 03/16 07:00 03/15 07:00 03/14 07:00 03/13 07:00 ?? 03/16 10:17 03/16 10:17 03/16 06:59 03/15 06:59 03/14 06:59 Intake ? 1478 ?118 ? 1360 ?0 ?0 Output ?0 ?0 ?0 ?0 ?0 Net Total ? 1478 ?118 ? 1360 ?0 ?0 ? Urine Count ?6 ?0 ?4 ?2 ?0 ? Physical Exam Constitutional: Alert, in no distress. Mental Status: Oriented to person, place and time. Respiratory: Clear to auscultation. No wheezing, rales or rhonchi. Cardiovascular: S1 S2 regular. No murmurs, rubs or gallops. Gastrointestinal: Abdomen soft, mild tenderness??to epigastric region.?? Neurologic:?? No focal neurological deficits. Flexor plantar response. Moves all extremities spontaneously. Sensation intact bilaterally. Skin: No rashes or lesions. No petechiae or purpura.?? Musculoskeletal: No cyanosis or clubbing. No gross deformities.?? Psychiatric: Normal mood and affect Results Recent Labs BLOOD COUNT & DIFF WBC 3.0 k/mm3 (Low)?? 03/15/2024 00:47 RBC 3.58 m/mm3 (Low)?? 03/15/2024 00:47 Hgb 10.2 Gm/dL (Low)?? 03/15/2024 00:47 Hct 33.4 % (Low)?? 03/15/2024 00:47 MCV 93.3 femtoliters ()?? 03/15/2024 00:47 MCH 28.5 pg ()?? 03/15/2024 00:47 MCHC 30.5 g/dL (Low)?? 03/15/2024 00:47 Platelet Count 79 k/mm3 (Low)?? 03/15/2024 00:47 RDW-SD 54.2 femtoliters (High)?? 03/15/2024 00:47 MPV 10.5 femtoliters ()?? 03/15/2024 00:47 Nucleated RBC (Automated) 0.0 #/100 WBC'S ()?? 03/15/2024 00:47 Abs. NRBC 0.0 k/mm3 ()?? 03/15/2024 00:47 Abs. Neut 1.5 k/mm3 ()?? 03/15/2024 00:47 Abs. Lymph 1.0 k/mm3 ()?? 03/15/2024 00:47 Abs. Humboldt 0.3 k/mm3 (Low)?? 03/15/2024 00:47 Abs. Eo 0.1 k/mm3 ()?? 03/15/2024 00:47 Abs. Baso 0.0 k/mm3 ()?? 03/15/2024 00:47 Neut % 52.1 % ()?? 03/15/2024 00:47 Lymph % 32.1 % ()?? 03/15/2024 00:47 Humboldt % 9.8 % ()?? 03/15/2024 00:47 Eos % 4.7 % ()?? 03/15/2024 00:47 Baso % 1.0 % ()?? 03/15/2024 00:47 Imm Gran 0.3 % ()?? 03/15/2024 00:47 Abs. Imm Gran 0.0 k/mm3 ()?? 03/15/2024 00:47 ?? BLOOD GAS pH 7.37 ()?? 03/14/2024 23:50 pCO2 53 mm Hg (High)?? 03/14/2024 23:50 pO2 108 mm Hg (High)?? 03/14/2024 23:50 Bicarbonate, Estimated 30 mmol/L (High)?? 03/14/2024 23:50 Specimen Type - Blood Gas ARTERIAL ()?? 03/14/2024 23:50 Percent O2 (FIO2) 35 ()?? 03/14/2024 23:50 ?? CHEM GENERAL Sodium 138 mmol/L ()?? 03/15/2024 00:47 Potassium 4.3 mmol/L ()?? 03/15/2024 00:47 Chloride 103 mmol/L ()?? 03/15/2024 00:47 Bicarbonate Level 26 mmol/L ()?? 03/15/2024 00:47 Anion Gap 9 ()?? 03/15/2024 00:47 Glucose Level 108 mg/dL (High)?? 03/15/2024 00:47 BUN 10 mg/dL ()?? 03/15/2024 00:47 Creatinine-Blood 0.67 mg/dL ()?? 03/15/2024 00:47 Estimated GFR Creatinine 110 ML/MIN/1.73 M2 ()?? 03/15/2024 00:47 Calcium 9.1 mg/dL ()?? 03/15/2024 00:47 Phosphorus 4.6 mg/dL (High)?? 03/15/2024 00:47 Magnesium 1.9 mg/dL ()?? 03/15/2024 00:47 Protein, Total 6.5 Gm/dL ()?? 03/15/2024 00:47 Albumin 3.2 Gm/dL (Low)?? 03/15/2024 00:47 AG Ratio 1.0 ()?? 03/15/2024 00:47 Alkaline Phosphatase 71 units/L ()?? 03/15/2024 00:47 AST (SGOT) 64 units/L (High)?? 03/15/2024 00:47 ALT (SGPT) 21 units/L ()?? 03/15/2024 00:47 Bilirubin, Total 0.7 mg/dL ()?? 03/15/2024 00:47 ?? URINE OTHER Est Creatinine Clearance 92.23 mL/min ()?? 03/15/2024 01:56 ? Assessment/Plan 44-year-old female past medical history of polysubstance use disorder??on methadone, alcohol dependence with cirrhosis,??likely MANSOOR, asthma/reactive airway disease,??PTSD??and depression, chronic pancreatitis??on replacement therapy who was admitted??for alcohol withdrawal. ??Her course was complicated by oversedation on CIWA??resulting in hypercapnia??and transferred to [facility]??for which she quickly improved on BiPAP.?? She is now back on the general floor??and has a lingering oxygen requirement??which we are trying to wean. ? Possible MANSOOR (obstructive sleep apnea) (G47.33):??. Acute respiratory failure with hypoxia and hypercarbia (J96.01):??. Somnolence (R40.0):??Resolved Pt with lethargy on 03/14 most likely due to oversedation and hypercarbia with pCO2 of 56. Now resolved, with lingering oxygen requirement that we are trying to wean. ?? Plan: ??? Outpatient sleep study ?CPAP at night ?Avoid sedatives ??? Wean oxygen as tolerated ?? Alcohol dependence (F10.20):??. Alcohol withdrawal (F10.939):? Completed CIWA. Addiction medicine consult with recs below. Denied other services from addiction medicine. ?? Plan: - MVI, Thiamine, Folic acid - Addiction Medicine consult with recs for acamprosate 666 TID ?? 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 Pt with pancytopenia and??INR elevation. No known ascites, esophageal??varices or hepatic encephalopathy. Evidence on??CT scan. ?? Plan: -GI outpatient follow-up arranged For right upper quadrant ultrasound and??possible EGD ?? Methadone use (F11.90):??. Substance abuse in remission (F19.11):? - Methadone 130 mg po??qd ?? Abdominal pain (R10.9):??. Chronic pancreatitis (K86.1):? N/V and abd pain on??admission??was most likely due to alcohol withdrawal. Resolved. - Pancrelipase - Refrain from alcohol use ?? PTSD - Post-traumatic stress disorder (F43.10):??. Anxiety (F41.9):? - Paroxetine, Trazodone, Hydroxyzine PRN ?? Asthma (J45.909):??Albuterol prn ?? Full code Regular diet VTE prophylaxis:??Enoxaparin 40 mg Does not want any family to be updated. ?? Patient seen and discussed with attending physician Dr. Hill. ?? Chinmay Garcia, DO Internal Medicine PG1 ? Consult note * Awilda Avery: PERFORM, SIGN, VERIFY Event Display: Consultation Note Authored Date: [id number] Patient: DAREN FITZGERALD Age: 44 years Sex: Female : 1980 Associated Diagnoses: None Author: Awilda Avery This selling underwriter met with patient this morning to discuss recovery resources. Patient declined all resources such as therapy, recovery coaching, IOP, MAT, AA meetings and inpatient treatment programs. If patient decides she would like assistance with recovery resources, this selling underwriter will meet with patient again. 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 called [facility], S2, d6b and managers made aware, patient relations called and pt aware to call and follow up Sharda Massey RN - 03/17/2024 16:18 EDT Discharge Level of Care at Discharge : Home/Alf/Foster Care Patient Left Unit Via : Wheelchair Patient Accompanied Off Unit with : Responsible adult DC Instructions Provided & Signed by Pt : Yes Patient Understands D/C Instructions : Yes Verbalized Understanding of D/C Plan By : Patient Patient Instructions Discharge Signed : Yes Did Pt have Specialty Bed or Wound Vac : No Bryson PIMENTEL, Sharda Webb - 03/17/2024 15:32 EDT * Chinmay Garcia DO: PERFORM, MODIFY, MODIFY, MODIFY Event Display: Discharge/Transfer Note Hospital Authored Date: Patient: ??DAREN FITZGERALD ? Age:??44 Years?Sex:??Female?:??1980?? 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) PTSD - Post-traumatic stress disorder (F43.10) Anxiety (F41.9) Asthma (J45.909) Acute respiratory failure with hypoxia and hypercarbia (J96.01) _ Discharge Medications Acamprosate (acamprosate 333 mg oral delayed release tablet)?666?Milligram?By Mouth?3 times a day with meals Albuterol (albuterol 90 mcg/inh inhalation powder)?2?puff(s)?Inhalation?Every 4 hours?as needed?as needed Albuterol (albuterol CFC free 90 mcg/inh inhalation aerosol)?2?puff(s)?Inhalation?4 times a day?as needed?as needed for wheezing Gabapentin (gabapentin 600 mg oral tablet)?1?tab(s)?600?Milligram?By Mouth?3 times a day HydrOXYzine (hydrOXYzine hydrochloride 25 mg oral tablet)?1?tab(s)?25?Milligram?By Mouth?2 times a day?as needed?anxiety Lactulose (lactulose 10 gm/15 ml oral syrup)?15?Milliliter?10?gram?By Mouth?2 times a day?as needed?as needed for constipation Magnesium Oxide (magnesium oxide 500 mg oral capsule)?1?capsule?500?Milligram?By Mouth?Daily Methadone?130?Milligram?By Mouth?Daily Multivitamin (Multivitamin Tablet)?1?tab(s)?By Mouth?Daily Pancrelipase (Creon [...] mg oral tablet)?50?Milligram?1?tablet?By Mouth?Daily at bedtime?as needed?Sleep Medications Started MiraLAX Senna Campral 666 3 times daily Medications Discontinued None Doses Changed None PCP Follow-Up/Heads-Up Patient was admitted with alcohol withdrawal and treated with Ativan. ??Course complicated by??oversedation and hypercapnia which led to her being on [facility] and BIPAP.?? Likely due to undiagnosed MANSOOR and patient will need outpatient??sleep study.?? MiraLAX and senna prescribed for constipation (says this is chronic for her, already on lactulose). Will need outpatient GI followup for cirrhosis which is pending. Future Appointments Saturday 2:30 PM EDT ?? With: Vanessa Malik DO Tri Where: [facility] [place] [address]- Status: Pending Hospital Course 44-year-old female past medical history of polysubstance use disorder??on methadone, alcohol dependence with cirrhosis,??likely MANSOOR, asthma/reactive airway disease,??PTSD??and depression, chronic pancreatitis??on replacement therapy who was admitted??for alcohol withdrawal. ??Her course was complicated by oversedation on CIWA??resulting in hypercapnia??and transferred to [facility]??for which she quickly improved on BiPAP.?? She was then transferred back to the general floor??where her oxygen requirement was weaned and she is now ready for discharge. ?? Possible MANSOOR (obstructive sleep apnea) (G47.33):??. Acute respiratory failure with hypoxia and hypercarbia (J96.01):??. Somnolence (R40.0):??Resolved Pt with lethargy on 03/14 most likely due to oversedation and hypercarbia with pCO2 of 56. Now resolved. ?? Plan: ???Outpatient sleep study ?F/u PCP ?Avoid sedatives ?? Alcohol dependence (F10.20):??. Alcohol withdrawal (F10.939):? Completed CIWA. Addiction medicine consult with recs below. Denied other services from addiction medicine. ?? Plan: - MVI, Thiamine, Folic acid - Addiction Medicine consult with recs for acamprosate 666 TID ?? 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 Pt with pancytopenia and??INR elevation. No known ascites, esophageal??varices or hepatic encephalopathy. Evidence on??CT scan. ?? Plan: -GI outpatient follow-up arranged for right upper quadrant ultrasound and??possible EGD ?? Methadone use (F11.90):??. Substance abuse in remission (F19.11):? - Methadone 130 mg po??qd ?? Abdominal pain (R10.9):??. Chronic pancreatitis (K86.1):? N/V and abd pain on??admission??was most likely due to alcohol withdrawal. Resolved. - Pancrelipase - Refrain from alcohol use ?? PTSD - Post-traumatic stress disorder (F43.10):??. Anxiety (F41.9):? - Paroxetine, Trazodone, Hydroxyzine PRN ?? Asthma (J45.909):??Albuterol prn Objective Vital Signs?? Temperature: 98.9 DegF (03/17/24 06:00:00) Temperature Route: Oral (03/17/24 06:00:00) Pulse Rate: 66 bpm (03/17/24 06:00:00) Respiratory Rate: 18 br/min (03/17/24 06:00:00) Systolic Blood Pressure: 115 mm Hg (03/17/24 06:00:00) Diastolic Blood Pressure: 76 mm Hg (03/17/24 06:00:00) Blood pressure sites: Arm, left (03/17/24 06:00:00) Mean Arterial Pressure: 71 mm Hg (03/16/24 15:47:00) Pulse Pressure: 39 mm Hg (03/17/24 06:00:00) Oxygen Saturation: 95 % (03/17/24 06:00:00) Liters per Minute: 1 L/min (03/16/24 11:05:00) Mode of Delivery (Oxygen): Room air (03/17/24 06:00:00) Early Warning Score: 8 (03/17/24 06:12:21) ? . Physical Exam Constitutional: Alert, in no distress. Mental Status: Oriented to person, place and time. Respiratory: Clear to auscultation. No wheezing, rales or rhonchi. Cardiovascular: S1 S2 regular. No murmurs, rubs or gallops. Gastrointestinal: Abdomen soft, non-tender, non-distended. . Neurologic: No focal neurological deficits. Flexor plantar response. Moves all extremities spontaneously. Sensation intact bilaterally. Skin: No rashes or lesions. No petechiae or purpura.?? Musculoskeletal: No cyanosis or clubbing. No gross deformities. Psychiatric: Normal mood and affect Consultants Addiction Medicine Patient Education Titles Web[employer] Ignite Patient Education - Cirrhosis?? [employer] Patient Education - Alcohol Withdrawal?? Web[employer] Patient Education - Alcohol Addiction?? Follow-Up Appointments Added Follow Up ?Time Frame ?Comments Adebayo MARINELLI, Rebekah?3-5 day: call to discuss follow up visit Patient Instructions You were admitted for alcohol withdrawal??and was treated with Ativan with significant improvement.?Your hospital course complicated by??respiratory failure likely due to undiagnosed MANSOOR.?? You will need an outpatient sleep study as well as follow-up with your PCP. You will also need follow up with GI for your cirrhosis, they will call you for an appointment.? New Medications: MiraLAX and Senna for constipation (take as needed) Home Health Face to Face ^HomeHealthFTF Results Discharge Labs BLOOD COUNT & DIFF WBC 3.0 k/mm3 (Low)?? 03/17/2024 00:45 RBC 3.43 m/mm3 (Low)?? 03/17/2024 00:45 Hgb 10.2 Gm/dL (Low)?? 03/17/2024 00:45 Hct 32.6 % (Low)?? 03/17/2024 00:45 MCV 95.0 femtoliters ()?? 03/17/2024 00:45 MCH 29.7 pg ()?? 03/17/2024 00:45 MCHC 31.3 g/dL (Low)?? 03/17/2024 00:45 Platelet Count 79 k/mm3 (Low)?? 03/17/2024 00:45 RDW-SD 54.8 femtoliters (High)?? 03/17/2024 00:45 MPV 10.9 femtoliters ()?? 03/17/2024 00:45 Nucleated RBC (Automated) 0.0 #/100 WBC'S ()?? 03/17/2024 00:45 Abs. NRBC 0.0 k/mm3 ()?? 03/17/2024 00:45 Abs. Neut 1.5 k/mm3 ()?? 03/15/2024 00:47 Abs. Lymph 1.0 k/mm3 ()?? 03/15/2024 00:47 Abs. Humboldt 0.3 k/mm3 (Low)?? 03/15/2024 00:47 Abs. Eo 0.1 k/mm3 ()?? 03/15/2024 00:47 Abs. Baso 0.0 k/mm3 ()?? 03/15/2024 00:47 Neut % 52.1 % ()?? 03/15/2024 00:47 Lymph % 32.1 % ()?? 03/15/2024 00:47 [place]umboldt % 9.8 % ()?? 03/15/2024 00:47 Eos % 4.7 % ()?? 03/15/2024 00:47 Baso % 1.0 % ()?? 03/15/2024 00:47 Imm Gran 0.3 % ()?? 03/15/2024 00:47 Abs. Imm Gran 0.0 k/mm3 ()?? 03/15/2024 00:47 ?? BLOOD GAS pH 7.37 ()?? 03/14/2024 23:50 pCO2 53 mm Hg (High)?? 03/14/2024 23:50 pO2 108 mm Hg (High)?? 03/14/2024 23:50 Bicarbonate, Estimated 30 mmol/L (High)?? 03/14/2024 23:50 Specimen Type - Blood Gas ARTERIAL ()?? 03/14/2024 23:50 Percent O2 (FIO2) 35 ()?? 03/14/2024 23:50 ?? CHEM GENERAL Sodium 141 mmol/L ()?? 03/17/2024 00:45 Potassium 3.9 mmol/L ()?? 03/17/2024 00:45 Chloride 103 mmol/L ()?? 03/17/2024 00:45 Bicarbonate Level 29 mmol/L ()?? 03/17/2024 00:45 Anion Gap 9 ()?? 03/17/2024 00:45 Glucose Level 115 mg/dL (High)?? 03/17/2024 00:45 BUN 11 mg/dL ()?? 03/17/2024 00:45 Creatinine-Blood 0.79 mg/dL ()?? 03/17/2024 00:45 Estimated GFR Creatinine 94 ML/MIN/1.73 M2 ()?? 03/17/2024 00:45 Calcium 8.7 mg/dL ()?? 03/17/2024 00:45 Phosphorus 4.6 mg/dL (High)?? 03/15/2024 00:47 Magnesium 1.9 mg/dL ()?? 03/15/2024 00:47 Protein, Total 6.5 Gm/dL ()?? 03/15/2024 00:47 Albumin 3.2 Gm/dL (Low)?? 03/15/2024 00:47 AG Ratio 1.0 ()?? 03/15/2024 00:47 Alkaline Phosphatase 71 units/L ()?? 03/15/2024 00:47 AST (SGOT) 64 units/L (High)?? 03/15/2024 00:47 ALT (SGPT) 21 units/L ()?? 03/15/2024 00:47 Bilirubin, Total 0.7 mg/dL ()?? 03/15/2024 00:47 ? URINE OTHER Est Creatinine Clearance 78.22 mL/min ()?? 03/17/2024 02:18 ? 30??minutes spent on discharge ?? Patient seen and discussed with attending physician Dr. Dee. ?? Chinmay Garcia, DO Internal Medicine PGY1 * Bryson PIMENTEL, Sharda Webb: PERFORM Event Display: Patient Education/Instruction Authored Date: [id number] Inpatient Adult Discharge Instructions. [address] [address] Name: DAREN FITZGERALD : 1980?? Visit: 03/14/2024 20:40?? Current Date: 03/17/2024 15:32 ?? Account: [id number]?? Inpatient Adult Discharge Instructions We would like [...] and their families. Surveys are administered by [employer] ?? If further treatment with your primary care physician or another doctor is recommended, it is important for you to keep the appointment. Call your primary care physician or return to the Emergency Department immediately if your condition worsens, fails to improve, or new symptoms develop. If you need to find a doctor, you can call [facility] for a referral at [phone] or toll free at [phone] ([phone]) or log in to [email or web address].. ?? [facility], in keeping with [facility] guidance, no longer requires face masks [...] a health care amberly of your choosing. [employer] is a website that allows you to securely view your medical information including your hospital discharge summary, office visit summaries, medications and follow-up visits. You can also request appointments, renew medications, and request access to your medical information using a health care amberly of your choosing, or just ask a question. You can enroll at [email or web address] or register during your next office visit. You have been discharged from [facility], Patient Care Unit: S3??. If you have any questions regarding these instructions, including results of studies pending, afteryou leave, please call us and we will be happy to assist you 20/05. [facility] Your Care Team Attending Physician Mitch Dee MD?? Consulting Providers Mitch Dee MD?? Discharging Providers Mitch Dee MD Your Diagnosis Somnolence Hypercarbia Obesity Snoring Chronic pancreatitis Methadone use Abdominal pain Alcohol withdrawal Obese class I Substance abuse in remission Alcohol dependence MANSOOR (obstructive sleep apnea) Cirrhosis with alcoholism PTSD - Post-traumatic stress disorder Anxiety Asthma Acute respiratory failure with hypoxia and hypercarbia Tests Performed Below is a partial list of the tests performed during your hospitalization. You may have had other tests and procedures not included in this list. Please discuss all test results with your provider. ABG Basic Metabolic Panel CBC CBC w/ Differential Comprehensive Metabolic Panel Magnesium Level Phosphorus Level No tests performed during this visit.?? Primary Care Provider Rebekah Fiore MD? Advance Directive Health Care Proxy on File No Patient refuses to discuss Discharge Vitals Temperature: 98.1 DegF Height: 163 cm Pulse Rate: 84 bpm Weight: 89 kg Respiratory Rate: 20 br/min Body Mass Index:??33.16 kg/m2??Critical Systolic Blood Pressure: 116 mm Hg Body surface area: 2 Diastolic Blood Pressure: 66 mm Hg ?? Oxygen Saturation: 94 % ?? Studies Pending All studies ordered during this hospital stay have been completed unless listed below. Please discuss all pending results with your provider listed above in these instructions. ?? No incomplete studies found?? What to do next Instructions From Your Doctor You were admitted for alcohol withdrawal??and was treated with Ativan with significant improvement.?Your hospital course complicated by??respiratory failure likely due to undiagnosed MANSOOR.?? You will need an outpatient sleep study as well as follow-up with your PCP. You will also need follow up with GI for your cirrhosis, they will call you for an appointment.? New Medications: MiraLAX and Senna for constipation (take as needed) ?? Orders? 03/17/24 14:10:00 EDT?? Scheduled Follow-Up Appointments Saturday 2:30 PM EDT ?? With: Vanessa Malik DO Where: [facility] [address] [place] [id number]- Status: Pending You Need to Schedule the Following Appointments Follow Up with??Adebayo MARINELLI, Rebekah When:??Within 3-5 day: call to discuss follow up visit Where: [address] [place] [id number]- Discharge Medications DAREN FITZGERALD :1980 Visit Date:03/14/2024 Medications: Please continue your medications until treatment is completed or stopped by your provider. Medications not listed below should be discontinued. Discuss any questions related to medications with your provider. What How Much When Instructions Next Dose New Acamprosate (acamprosate 333 mg oral delayed release tablet) 666 Milligram Oral 3 times a day with meals Pickup at [place] [id number] 03/17 today at 5pm New Polyethylene Glycol 3350 (polyethylene glycol 3350 oral powder for reconstitution) 17 gram Oral Daily dissolve in 4 to 8 oz of beverage ?? Pickup at [facility] 3 03/18 tomorrow morning New Senna (senna 187 mg oral tablet) 1 tab(s) Oral Twice a day as needed for Constipation Pickup at [facility] 3 as needed Changed Methadone 130 Milligram Oral Daily 03/18 tomorrow morning Unchanged Albuterol (albuterol 90 mcg/ inh inhalation powder) 2 puff(s) Inhalation Every 4 hours as needed for as needed as needed Unchanged Albuterol (albuterol CFC free 90 mcg/ inh inhalation aerosol) 2 puff(s) Inhalation 4 times a day as needed for as needed for wheezing as needed Unchanged Gabapentin (gabapentin 600 mg oral tablet) 1 tab(s) Oral 3 times a day 03/17 tonight Unchanged HydrOXYzine (hydrOXYzine hydrochloride 25 mg oral tablet) 1 tab(s) Oral Twice a day as needed for anxiety as needed Unchanged Lactulose (lactulose 10 gm/ 15 ml oral syrup) 15 Milliliter Oral Twice a day as needed for as needed for constipation as needed Unchanged Magnesium Oxide (magnesium oxide 500 mg oral capsule) 1 capsule Oral Daily 03/18 tomorrow morning Unchanged Multivitamin (Multivitamin Tablet) 1 tab(s) Oral Daily 03/18 tomorrow morning Unchanged Pancrelipase (Creon 36,000 units oral delayed release capsule) 1 capsule Oral 3 times a day 03/17 today at 5pm Unchanged Pantoprazole (pantoprazole 40 mg oral delayed release tablet) 1 tab(s) Oral Daily 03/18 tomorrow morning Unchanged Paroxetine (PARoxetine 20 mg oral tablet) 1 tab(s) Oral Daily 03/18 tomorrow morning Unchanged Sumatriptan (SUMAtriptan 50 mg oral tablet) 1 tab(s) Oral Daily as needed for for migraine headache may repeat dose after 2 hours up to a maximum of 2 ?? as needed Unchanged Trazodone (traZODone 50 mg oral tablet) 1 tab(s) Oral Daily at Bedtime as needed for Sleep as?? needed Pharmacy Information [facility] [address]: [address] [place], [place] [id number] [phone] Prescription Given During Visit Acamprosate (acamprosate 333 mg oral delayed release tablet) - 666 mg, By Mouth, 3 times a day withmeals, # 90 each, 0 Refills, [facility] [address] [place] [phone]?? Polyethylene Glycol 3350 (polyethylene glycol 3350 oral powder for reconstitution) - 17 Gm, By Mouth, Daily, # 238 Gm, 0 Refills, dissolve in 4 to 8 oz of beverage, [facility] [place] [address] [phone]?? Senna (senna 187 mg oral tablet) - 1 tablet = 8.6 mg, By Mouth, 2 times a day, # 25 tablet, 0 Refills, [facility] [place] [address] [phone]?? Laboratory Results Below is a partial list of the most recent Laboratory test results done prior to this discharge. You may have had other tests and procedures not included in this list. Please discuss all test resultswith your provider. Est Creatinine Clearance - 78.22 mL/min (03/17/2024) ABG (03/14/2024) ???pH - 7.37???pCO2 - 53 mm Hg???pO2 - 108 mm Hg???Bicarbonate, Estimated - 30 mmol/L???Specimen Type - Blood Gas - ARTERIAL???Percent O2 (FIO2) - 35 Basic Metabolic Panel (03/17/2024) ???Sodium - 141 mmol/L???Potassium - 3.9 mmol/L???Chloride - 103 mmol/L???Bicarbonate Level - 29 mmol/L???Anion Gap - 9???Glucose Level - 115 mg/dL???BUN - 11 mg/dL???Creatinine-Blood - 0.79 mg/dL???Estimated GFR Creatinine - 94 ML/MIN/1.73 M2???Calcium - 8.7 mg/dL CBC (03/17/2024) ???WBC - 3.0 k/mm3???RBC - 3.43 m/mm3???Hgb - 10.2 Gm/dL???Hct - 32.6 %???MCV - 95.0 femtoliters???MCH - 29.7 pg???MCHC - 31.3 g/dL???Platelet Count - 79 k/mm3???RDW-SD - 54.8 femtoliters???MPV - 10.9 femtoliters???Nucleated RBC (Automated) - 0.0 #/100 WBC'S???Abs. NRBC - 0.0 k/mm3 CBC w/ Differential (03/15/2024) ???WBC - 3.0 k/mm3???RBC - 3.58 m/mm3???Hgb - 10.2 Gm/dL???Hct - 33.4 %???MCV - 93.3 femtoliters???MCH - 28.5 pg???MCHC - 30.5 g/dL???Platelet Count - 79 k/mm3???RDW-SD - 54.2 femtoliters???MPV - 10.5 femtoliters???Nucleated RBC (Automated) - 0.0 #/100 WBC'S???Abs. NRBC - 0.0 k/mm3???Abs. Neut - 1.5 k/mm3???Abs. Lymph - 1.0 k/mm3???Abs. [place] - 0.3 k/mm3???Abs. Eo - 0.1 k/mm3???Abs. Baso - 0.0 k/mm3???Neut % - 52.1 %???Lymph % - 32.1 %???[place] % - 9.8 %???Eos % - 4.7 %???Baso % - 1.0 %???Imm Gran- 0.3 %???Abs. Imm Gran - 0.0 k/mm3 Comprehensive Metabolic Panel (03/15/2024) ???Sodium - 138 mmol/L???Potassium - 4.3 mmol/L???Chloride - 103 mmol/L???Bicarbonate Level - 26 mmol/L???Anion Gap - 9???Glucose Level - 108 mg/dL???BUN - 10 mg/dL???Creatinine-Blood - 0.67 mg/dL???Estimated GFR Creatinine - 110 ML/MIN/1.73 M2???Calcium - 9.1 mg/dL???Protein, Total - 6.5 Gm/dL???Albumin - 3.2 Gm/dL???AG Ratio - 1.0???Alkaline Phosphatase - 71 units/L???AST (SGOT) - 64 units/L???ALT (SGPT) - 21 units/L???Bilirubin, Total - 0.7 mg/dL Magnesium Level (03/15/2024) ???Magnesium - 1.9 mg/dL Phosphorus Level (03/15/2024) ???Phosphorus - 4.6 mg/dL Allergies (NKA means No Known Allergies) Cats??(hives, rash) Compazine??(rash masking effect) Dust??(hives) LaMICtal??(rash) Problems Active Problems??(19) Abdominal pain?? Alcohol withdrawal?? Allergic reaction?? Borderline personality disorder?? Cocaine dependence in remission?? Cystic fibrosis carrier?? Eating disorder?? Hip pain?? Hyperbilirubinemia?? Hypokalemia?? Hypokalemia?? Lactic acid acidosis?? LGSIL (low grade squamous intraepithelial dysplasia)?? Liver cirrhosis?? Obese class I?? Obesity?? Opioid dependence?? PTSD - Post-traumatic stress disorder?? Substance abuse in remission?? Education Materials Below is the list of Educational Leaflet Providered with your Discharge Instructions. Web[employer] Ignite Patient Education - Acamprosate Delayed Release Oral Tablet?? Web[employer] Ignite Patient Education - Cirrhosis?? Web[employer] Ignite Patient Education - Alcohol Withdrawal?? Web[employer] Ignite Patient Education - Alcohol Addiction?? Valuables and Belongings I fully understand and agree that [facility] accepts no responsibility for all my personal [...] Review of Valuable and Belonging List: With patient, With witness Date for Pt to Sign Valuables/Belongings: 03/17/24 10:13:00 ?? Other Discharge Information ? Case Management Discharge Plan?? Discharge Plan?? Discharge Level of Care at Discharge: Home/Alf/Foster Care ?? Pulmonary Rehab Status?? Pulmonary Rehab Discharge Status?? CPAP/BiPAP Mask Type: Full CPAP/BiPAP Mask Size: Medium Respiratory Rate: 20 br/min ? Common Emergency Awareness Tips IS IT A STROKE? Act FAST and Check for these signs: FACE Does the face look uneven? ARM Does one arm drift down? SPEECH Does their speech sound strange? TIME Call at any sign of stroke ?? Heart [...] are strongly encouraged to quit. Please call [facility] at [phone] or [phone] [employer] ([phone]) or log in to [email or web address] for referrals to smoking cessation programs. ?? 221 Suicide & Crisis Lifeline is available 20/05 if you or someone you know needs to find a reason to keep living. By calling 682 you'll be connected to a skilled, trained counselor at a crisis center in your area. INPATIENT DISCHARGE INSTRUCTIONS SIGNATURE DAREN GUARDADO Location:[facility] Registration Date and Time:03/14/2024 20:40 EDT Primary Care Physician: Adebayo MARINELLI, Rebekah, Attending Physician: Mitch Dee MD, I ASIF DAREN, have received the above patient education materials/instructions and have verbalized understanding. If ambulance or transport services are being used I further acknowledge being given a choice of service. ?? If you need to contact me, please call me at this number: . Patient/Manager Of Administration Name: Patient/Manager Of Administration Signature: Relationship to Patient: Witness Name/Signature: Date: * Sharda Massey RN: PERFORM, SIGN, VERIFY Event Display: Patient Education Handout Authored Date: [id number] * Sharda Massey RN: PERFORM Event Display: Patient Education Leaflets Authored Date: [id number] Acamprosate Delayed Release Oral Tablet ?? 75162-107 Acamprosate Delayed Release Oral Tablet Uses For treating alcohol dependence. ?? Instructions Swallow the medicine without crushing or chewing it. This medicine may be taken with or without food. Store at room temperature away from heat, light, and moisture. Do not keep in the bathroom. It is important that you keep taking each dose of this medicine on time even if you are feeling well. If you forget to take a dose on time, take it as soon as you remember. If it is almost time for thenext dose, do not take the missed dose. Return to your normal schedule. Do not take 2 doses at one time. Drug interactions can change how medicines work or increase risk for side effects. Tell your healthcare providers about all medicines taken. Include prescription and yiti-zmb-fhbhnrh medicines, vitamins, and herbal medicines. Speak with your doctor or pharmacist before starting or stopping any medicine. Tell your doctor if symptoms do not get better or if they get worse. Keep all appointments for medical exams and tests while on this medicine. ?? Cautions Tell your doctor and pharmacist if you ever had an allergic reaction to a medicine. Some patients taking this medicine have experienced serious side effects. Please speak with your doctor to understand the risks and benefits associated with this medicine. Do not use the medication any more than instructed. Your ability to stay alert or to react quickly may be impaired by this medicine. Do not drive or operate machinery until you know how this medicine will affect you. Do not drink beverages with alcohol while on this medicine. Family should check on the patient often. Call the doctor if patient becomes more depressed, has thoughts of suicide, or shows changes in behavior. Contact your doctor if you notice a change in the amount or darkening of your urine. Tell the doctor or pharmacist if you are , planning to be , or . Do not share this medicine with anyone who has not been prescribed this medicine. ?? Side Effects The following is a list of some common side effects from this medicine. Please speak with your doctor about what you should do if you experience these or other side effects. ??? decreased appetite ??? bloating ??? constipation or diarrhea ??? dizziness or drowsiness ??? lack of energy and tiredness ??? headaches ??? joint or muscle pain ??? nausea and vomiting ??? problems with sexual functions or desire ??? stomach pain ??? change in weight Call your doctor or get medical help right away if you notice any of these more serious side effects: ??? severe or persistent abdominal pain ??? coughing up blood or vomit that looks like coffee grounds ??? fainting ??? hearing loss ??? rapid heartbeat ??? mood changes ??? seizures ??? dark, tarry stool ??? persistent or unusual thirst ??? blurring or changes of vision A few people may have an allergic reaction to this medicine. Symptoms can include difficulty breathing, skin rash, itching, swelling, or severe dizziness. If you notice any of these symptoms, seek medical help quickly. ?? Extra Please speak with your doctor, nurse, or pharmacist if you have any questions about this medicine. ?? [email or web address] IMPORTANT NOTE: This document tells you briefly how to take your medicine, but it does not tell youall there is to know about it. Your doctor or pharmacist may give you other documents about your medicine. Please talk to them if you have any questions. Always follow their advice. There is a more complete description of this medicine available in Belarusian. Scan this code on your smartphone or tablet or use the web address below. You can also ask your pharmacist for a printout. If you have any questions, please ask your pharmacist. The display and use of this drug information is subject to Terms of Use. Copyright(c) 2023 [employer]. ?? [employer]. All rights reserved. This information is not intended as a substitute for professional medical care. Always follow your healthcare professional's instructions. ?? * Chinmay Garcia DO: PERFORM Event Display: Patient Education Leaflets Authored Date: Cirrhosis ?? [id number] Cirrhosis The liver is found on the [...] any medicine not prescribed. These include any onaw-mhe-csoilio medicines, dietary s upplements,??and herbs. Some of [...] for people with liver disease, contact: ??? [employer],?? www.liverfoundation.org ??? AAS[employer], www.aasldfoundation.org/patients [...] yourrectum ?? Last Reviewed Date: 2022 ?? 6140-5373 [employer]. All rights reserved. This information is not intended as a substitute for professional medical care. Always follow your healthcare professional's instructions. ?? * Chinmay Garcia DO: PERFORM Event Display: Patient Education Leaflets Authored Date: [id number] Alcohol Withdrawal ?? [id number] Alcohol Withdrawal Alcohol withdrawal often starts after prolonged heavy drinking, and then you suddenly stop drinking. Or you cut down on your alcohol use. It is not one thing. It is a complex combination of signs andsymptoms that often occur together and define a certain problem or condition. ??? Alcohol withdrawal is potentially life-threatening. It is a medical emergency. ??? It can startas early as a couple of hours after your last drink. Or it may take 1 to 3 days to develop. ??? It can last from days to a week or more. ??? It can worsen very quickly. Signs and symptoms There are??several stages of alcohol withdrawal. But they overlap, as do their signs and symptoms. In the earlier stages, it most often includes: ??? Anxiety ??? Shakiness ??? Nausea and vomiting ???Sweating ??? Insomnia ??? Headaches ??? Fever ??? Mood swings, irritability, agitation, restlessness ?? Delirium tremens (DTs) DTs are a severe and life-threatening complication. If??DTs happen, they often start about 3 to 5 days after your last drink. They are potentially life threatening, so medical care should be sought. Symptoms of DTs include: ??? Sudden and severe mental or nervous system changes ??? Uncontrollable tremors ??? Severe disorientation, confusion, hallucinations ??? Heart racing, or irregular heartbeat??? High blood pressure ??? Seizures ??? Possible coma and ?? Home care ??? You'll need plenty of rest and fluids over the next several days. Eat regular meals and drink plenty of fluids to prevent dehydration. Don't drink any more alcohol. During this time, itis best that you're not alone. Stay with family or friends who can help and support you. You can also admit yourself to a residential detox program. ??? Don't drive until all symptoms are gone and you are feeling better. If you've had a seizure, don't drive until you've been examined by a healthcare provider. ??? If you were given sedative medicine to reduce your symptoms, don't take it more often than prescribed. Never take it with alcohol. ?? Follow-up care Once you've gone through the withdrawal symptoms, you've fought half of the nazario. To avoid the risk of going back to your past drinking pattern, it's vital that you get follow-up support and treatment. ??? Alcoholics Anonymous (AA) offers support through a self-help fellowship. There are no dues or fees. Search the internet or go to the AA website at www.aa.org to find a local meeting place. ??? [employer] offers support to families of alcohol users. Go to the Al-Anon website at www.alKnowledge Factoranon.org . ??? Residential alcohol detox programs are available. Search the internet for treatment centers [facility]. ?? Call 911 Call 911 if any of these occur: ??? Seizure ??? Trouble breathing or slow, irregular breathing ??? Chest pain ??? Sudden weakness on a side of the body or sudden trouble speaking ??? Heavy bleeding or vomiting blood ??? Very drowsy or trouble awakening ??? Fainting or loss of consciousness ??? Rapid heart rate ?? When to get medical advice Call your healthcare provider right away??if any of these occur: ??? Severe shakiness ??? Hallucinations ??? Fever over 100.4?? F (38.0?? C) ??? Headache, confusion, extreme drowsiness, inability to awaken ??? Increasing upper abdominal pain ??? Repeated vomiting ?? Last Reviewed Date: 2021 ?? 9116-5124 The [employer]. All rights reserved. This information is not intended as a substitute for professional medical care. Always follow your healthcare professional's instructions. ?? Patient Care team information Care Team Personnel Name: Tiffanie Fall RN Position: S RN Member Role: Primary Care Nurse Name: Hazel Rivero MD Position: [facility] Member Role: [facility] Physician Address: Address: [address] [place], [place] [address] [place] [address]- [place] Name: Rebekah Fiore MD Position: Reference Physician Member Role: PCP Address: Address: [address] [place] [id number]- Name: Digna Roque RN Position: S RN Member Role: Primary Care Nurse Care Team Related Persons Name: JUAN RAMON FITZGERALD Address: home [address] [place] [address] Name: OLGA PRINGLE Address: home [address] [place] [address] [place] [address] Name: NICK POON
--- OUTSIDE RECORDS SUMMARY | 2024-09-25 19:00 | XMS_ITS | Continuity of Care Document ---
Author Organization [facility] Address [address] [place] [address]- Care Team Providers Care Refractory Products Supervisor Name Role Phone Flores MARINELLI, Tony Parekh Primary Care Physician Encounter [facility] Date(s): 07/15/20 - 07/15/[address] [address]- [place] Encounter Diagnosis Back pain(Final) - 07/15/20 Discharge Disposition: A-D/C Home Attending Physician: Rambo Andrews MD Admitting Physician: Rambo Andrews MD Referring Physician: Not on Staff, Referring [...] sublingual film See Instructions, 0 Refills, Maintenance, 07/29/17 13:16:31 Start Date: 07/29/17 Status: Ordered Sumatriptan Once, 0 Refills, Maintenance, 02/03/18 16:50:14 EDT Start Date: 02/03/18 Status: Ordered Problem List Condition Effective Dates Status Health Status Inform ant LGSIL (low grade squamous intraepithelial dysplasia)(Confirmed) Active Eating disorder(Confirmed) Active Hip pain(Confirmed) Active Obesity(Confirmed) Active PTSD - Post-traumatic stress disorder(Confirmed) Active Results Radiology Reports * Exam Date Time Procedure Performing Provider Status 07/15/20 8:46 AM Chest Portable Rosina Orosco; Au th (Verified) Notes: (Chest Portable) Reason For Exam: Other: RESULT: Chest Portable Chest Portable Hx of Present Illness: BACK PAIN UNDER R SHOULDER BLADE STARTING LAST NIGHT RADIATING TO RIGHT CHEST WALL, WORSE WITH BREATHING. DENIES TRAUMA OR INJURY TO AREA. TRIED HEATING PAD AND ICE THROUGHOUT THE NIGHT WITHOUT IMPROVEMENT. 324MG ASA GIVEN BY EMS; Reason: Other:; Clinical Question(s): Other: COMPARISON: 11/07/2016. FINDINGS: The imaging is mildly degraded secondary to technique and poor penetration. LINES AND TUBES: None. LUNGS AND PLEURA: Low lung volumes with mild basilar atelectasis. Lungs are otherwise clear with no consolidation. No large pleural effusion. No pneumothorax. HEART, MEDIASTINUM AND STEVEN: Heart size is prominent, likely exaggerated secondary to technique and the low lung volumes. Normal mediastinal and hilar contour. BONES AND SOFT TISSUES: No acute abnormality. IMPRESSION: Degraded examination as described. Low lung volumes. WSN: [id number] Ordering Physician: Rambo Andrews Dictated By: Clark Vásquez MD Dictated Date/Time: 07/15/20 8:50 am Reviewed By: Clark Vásquez MD Signed By: Clark Vásquez MD Signed Date/Time: 07/15/20 8:50 am Transcribed By: DAMI Transcribed Date/Time: 07/15/20 8:48 am Vital Signs Most recent to oldest [Reference Range]: 1 2 3 Height 163 cm (07/15/20 7:58 AM) Weight 80 kg (07/15/20 7:58 AM) Oxygen Saturation [94-100 %] 99 % (07/15/20 11:11 AM) 100 % (07/15/20 7:58 AM) Pulse Rate [55-90 bpm] 101 bpm *H* (07/15/20 11:11 AM) 99 bpm *H* (07/15/20 7:58 AM) Blood Pressure [90-138/55-84 mm Hg] 137/99mm Hg (07/15/20 11:11 AM) 134/84mm Hg (07/15/20 7:58 AM) Respiratory Rate [16-30 br/min] 17 br/min (07/15/20 11:13 AM) 19 br/min (07/15/20 11:11 AM) 18 br/min (07/15/20 7:58 AM) Temperature [96.8-100.4 DegF] 98.3 DegF (07/15/20 7:58 AM) Mode of Delivery (Oxygen) Room air (07/15/20 7:58 AM) Blood pressure sites Arm, right (07/15/20 7:58 AM) Temperature Route Temporal (07/15/20 7:58 AM) Dry Weight 80 kg (07/15/20 7:58 AM) Weight Obtained Via Standing scale (07/15/20 7:58 AM) Dry Weight Obtained Via Standing scale (07/15/20 7:58 AM) Social History Social History Type Response Smoking Status Current every day dora cevallos; Type: Cigarettes; Other: 1 pack a week; entered on: 02/03/18 Sex
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
--- OUTSIDE RECORDS SUMMARY | 2024-09-25 19:00 | XMS_ITS | Continuity of Care Document ---
Author Organization [facility] Address [address] [place] [address]- Care Team Providers Care Retail Solar Advisor Name Role Phone Flores MARINELLI, Tony Parekh Primary Care Physician Encounter [facility] [place] Date(s): 11/01/23 - 11/02/[address] [address]- Encounter Diagnosis Syncope(Final) - 11/01/23 Polysubstance use disorder(Final) - 11/01/23 Malaise(Final) - 11/02/23 Cough(Final) - 11/02/23 Discharge Disposition: A-D/C Home Attending Physician: Rosaura Ramon MD Admitting Physician: Rosaura Ramon MD Referring Physician: Not on Staff, Referring [...] hours,PRN:as needed Start Date: 11/07/16 Status: Ordered Creon 36,000 units oral delayed release capsule 1 capsule, By Mouth, 3 times a day, 0 Refills, Maintenance, 10/03/23 5:21:00 EST, Partial fill uponpatient request if the prescription is for a schedule II opioid drug. Start Date: 10/03/23 Status: Ordered gabapentin 600 mg oral tablet 1 tablet = 600 mg, By Mouth, 3 times a day, # 270 tablet, 0 Refills, Maintenance, 10/02/23 18:53:00EST, Tablet, Partial fill upon patient request if the prescription is for a schedule II opioid drug. Start Date: 10/02/23 Status: Ordered pantoprazole 40 mg oral delayed [...] opioid drug. Start Date: 10/02/23 Status: Ordered Zithromax 250 mg oral tablet 1 pack/packet, By Mouth, Once, # 6 tablet, 0 Refills, Soft Stop, 11/02/23 6:27:00 EST, Tablet, [facility]/pharmacy #[id number], Partial fill upon patient request if the prescription is for a schedule II opioid drug., 163, cm, 11/01/23 22:19:00 EST, Height, 90, kg,... Start Date: 11/02/23 Status: Ordered Problem List Condition Confirmation Course Effective Dates Status H ealth Status Informant LGSIL (low grade squamous intraepithelial dysplasia) Confirmed Active Cystic fibrosis carrier Confirmed Active Liver cirrhosis Confirmed Active Eating disorder Confirmed Active Hip pain Confirmed Active Obese class I Confirmed Active Obesity Confirmed Active PTSD - Post-traumatic stress disorder Confirmed Active Results Radiology Reports * Exam Date Time Procedure Performing Provider Status 11/01/23 11:28 PM Chest 2 Views Frontal and Lat Parisa Barajas Auth (Verified) Notes: (Chest 2 Views Frontal and Lat) Reason For Exam: Shortness of Breath RESULT: Chest 2 Views Frontal and Lat Chest 2 Views Frontal and Lat Hx of Present Illness: Patient is section 35 for etoh detox hasnt been feeling good syncopized; Reason: Shortness of Breath; Clinical Question(s): Pneumonia COMPARISON: 07/15/2020 FINDINGS: LINES AND TUBES: None. LUNGS AND PLEURA: Patchy density both lungs seen on frontal view, though less conspicuous on the lateral view. These may represent effects of hypoinflation versus pneumonia. No pleural effusion. No pneumothorax. HEART, MEDIASTINUM AND STEVEN: Heart is normal in size. Normal mediastinal and hilar contour. BONES AND SOFT TISSUES: No acute abnormality. IMPRESSION: Possible findings of pneumonia. WSN: [id number] Ordering Physician: Rosaura Ramon Dictated By: Demetris Dyer MD Dictated Date/Time: 11/01/23 11:31 p Reviewed By: Demetris Dyer MD Signed By: Demetris Dyer MD Signed Date/Time: 11/01/23 11:31 pm Transcribed By: DAMI Transcribed Date/Time: 11/01/23 11:31 pm Vital Signs Most recent to oldest [Reference Range]: 1 2 3 Height 163 cm (11/01/23 10:19 PM) 163 cm (11/01/23 10:12 PM) Weight 90 kg (11/01/23 10:19 PM) 90 kg (11/01/23 10:12 PM) Oxygen Saturation [94-100 %] 96 % (11/02/23 7:00 AM) 96 % (11/02/23 4:00 AM) 97 % (11/02/23 2:00 AM) Pulse Rate [55-90 bpm] 78 bpm (11/02/23 7:00 AM) 70 bpm (11/02/23 4:00 AM) 76 bpm (11/02/23 2:00 AM) Body Mass Index [18.5-24.99 kg/m2] 33.87 kg/m2 *>HHI* (11/01/23 10:12 PM) Blood Pressure [90-138/55-84 mm Hg] 125/77mm Hg (11/02/23 7:00 AM) 108/88mm Hg (11/02/23 4:00 AM) 97/63mm Hg (11/02/23 2:00 AM) Respiratory Rate [16-30 br/min] 16 br/min (11/02/23 7:00 AM) 16 br/min (11/02/23 4:00 AM) 16 br/min (11/02/23 2:00 AM) Temperature [96.8-100.4 DegF] 98.5 DegF (11/02/23 7:00 AM) 97.5 DegF (11/01/23 10:12 PM) Mode of Delivery (Oxygen) Room air (11/02/23 4:00 AM) Room air (11/02/23 2:00 AM) Room air (11/02/23 12:00 AM) Blood pressure sites Arm, left (11/02/23 7:00 AM) Arm, left (11/02/23 4:00 AM) Arm, right (11/02/23 2:00 AM) Temperature Route Oral (11/02/23 7:00 AM) Oral (11/01/23 10:12 PM) Dry Weight 90 kg (11/01/23 10:19 PM) 90 kg (11/01/23 10:12 PM) Weight Obtained Via Patient/family state d (11/01/23 10:12 PM) Dry Weight Obtained Via Patient/family s tated (11/01/23 10:12 PM) Social History Social History Type Response Smoking Status Current every day sm oker; Type: Cigarettes; Other: 1 pack a week; entered on: 02/03/18 Sex Patient Care team information Care Team Personnel Name: Hazel Rivero MD Position: [facility] SALES OPERATIONS LEAD MD Member Role: Lifetime SALES OPERATIONS LEAD Physician Address: Address: [address] [place] [address] [facility] [place] [address]- Name: Tony Tanner MD Position: [facility] Outreach Member Role: PCP Address: Address: [address] [place] [address]- Name: Rosaura Ramon MD Position: [facility] ED Medicine MD Member Role: ED Attending Physician Address: Address: [address] [place] [address] [place] [address]- Name: Magaly Mahmood RN Position: [facility] ED RN W/OE and Tasks Member Role: Patient Care Provider Name: Vishnu Levin RN Position: [facility] ED RN W/OE and Tasks Member Role: Patient Care Provider Care Team Related Persons Name: ASIF JUAN RAMON Address: home [facility] [address] [place] [id number] Name: OLGA PRINGLE Address: home [address] [place] [id number]
--- OUTSIDE RECORDS SUMMARY | 2024-09-25 19:00 | XMS_ITS | Continuity of Care Document ---
Author Organization [facility] ter Address [address] [place] [id number] Care Team Providers Care Personnel Training Officer Name Role Phone Adebayo MARINELLI, Rebekah Primary Care Physician [place] [facility] [place] 03/25/24 - 03/28/[address] [id number] Discharge Disposition: A-D/C Home Attending Physician: Helena Bruce DO Admitting Physician: Lopez MARINELLI, Ata Referring Physician: Not on Staff, Referring MD [...] 0 Refills, Maintenance, 03/17/24 10:46:00 EDT, Tablet, [facility], Partial fill upon patient request if the prescription is for a schedule II opioid drug., 163, cm, 03/17/24 10:13:... Start Date: 03/17/24 Status: Ordered albuterol CFC free 90 mcg/inh inhalation aerosol 2, puffs, Inhalation, 4 times a day, PRN, # 6.7 Gm, Refills 0, Tot. Refills 0, Maintenance, 11/10/23 16:46:00 EST, Aerosol, Route to Pharmacy Electronically, [id number], [facility]/pharmacy #[id number], 162, cm, 11/10/23 13:45:00 EST, Hei... Start Date: 11/10/23 Status: Ordered Creon 36,000 units oral delayed release capsule 1 capsule, By Mouth, 3 times a day, # 30 capsule, 0 Refills, Maintenance, 11/10/23 16:48:00 EST, [facility]/pharmacy #[id number], Partial fill upon patient request if the prescription is for a schedule II opioid drug., 1 capsule By Mouth 3 times a day, 162, cm, 01... Start Date: 11/10/23 Status: Ordered gabapentin 300 mg oral capsule 600 mg, Capsule, By Mouth, 03/28/24 15:00:00 EDT Start Date: 03/28/24 Stop Date: 03/28/24 Status: Completed gabapentin 600 mg oral tablet [...] Ordered methadone 10 mg/5 mL oral solution 25 mL = 50 mg, By Mouth, Daily, 0 Refills, Maintenance, [...] Refills, Maintenance, 03/17/24 10:45:00 EDT, REC Powder, [facility], Partial fill upon patient request if the prescription is for a schedule II opioid drug., 17 Gm... Start Date: 03/17/24 Status: Ordered senna 187 mg oral tablet 1 tablet = 8.6 mg, By Mouth, 2 times a day, PRN Constipation, # 25 tablet, 0 Refills, Maintenance, 03/17/24 10:45:00 EDT, Tablet, [facility], Partial fill upon patient request [...] Exam Date Time Procedure Performing Provider Status 03/27/24 2:[address] Head/Brain W/O Contrast Joanie Hill (Verified) Notes: (CT Head/Brain W/O Contrast) Reason For Exam: SAH seen previously, complaining of worsening headache;Headache(s) RESULT: CT Head/Brain W/O Contrast CT Head/Brain W/O Contrast INDICATION: Reason: Headache(s); SAH seen previously, complaining of worsening headache; Clinical Question(s): Hematoma TECHNIQUE: Noncontrast head CT using axial technique and reconstructed in axial and coronal planes.Iterative reconstruction techniques are used to optimize dose and image quality. CTDIvol Head: 44.90 mGy, DLP Head: 772 mGy*cm. COMPARISON: CT head 03/25/2024 FINDINGS: Manager Architectural view findings, lines and tubes: None. BRAIN AND EXTRA-AXIAL SPACES: Previously identified subarachnoid hemorrhage at the left frontal lobe is no longer seen, which mayrepresent evolving blood products versus prior artifact. No parenchymal hemorrhage, midline shift, or mass effect. Durham-white matter differentiation is wellpreserved. No acute infarct. Negative insular ribbon and hyperdense vessel signs. Ventricles, sulci, and basilar cisterns are normal. No white matter lesions. No subdural or epidural collection. CALVARIUM, SKULL BASE, AND SOFT TISSUES: No fractures or suspicious bony lesions. The paranasal sinuses and mastoid air cells are clear. Visualized orbits and globes are intact. The extracranial soft tissues are unremarkable. IMPRESSION: No acute intracranial pathology. Previously identified subarachnoid hemorrhage at the left frontal lobe is no longer seen, which mayrepresent evolving blood products versus prior artifact. I have personally reviewed the images and I agree with this report. WSN: [id number] Ordering Physician: Stephen Poole Dictated By: Idalia Almeida MD Dictated Date/Time: 03/27/24 8:55 am Reviewed By: Jarrell Gonzales MD Signed By: Jarrell Gonzales MD Signed Date/Time: 03/27/24 9:00 am Transcribed By: DAMI Transcribed Date/Time: 03/27/24 4:33 am * Exam Date Time Procedure Performing Provider Status 03/25/24 7:45 PM Chest Portable Trev Tariq; Mod ified Notes: (Chest Portable) Reason For Exam: Tube Placement RESULT: Chest Portable AP semiupright portable chest dated March 25, 2024 1933 hours. Comparison films are from earlier in the day at 1535 hours. HISTORY: Tube placement. FINDINGS: The cardiac silhouette is increased in size and unchanged. An endotracheal tube is present with its tip 3.6 cm proximal to the jay. A nasogastric tube extends into the left upper quadrant. The tip and sidehole are distal to the EG junction region. Lung volumes are decreased. Some minimal opacity is present at the right lung base consistent with atelectasis. Visualized osseous structures are unremarkable. IMPRESSION: Endotracheal tube and nasogastric tube in place. Minimal right basilar atelectasis. Examination 18906. Thank you for allowing me to participate in the care of this patient. WSN: [id number] Ordering Physician: Liz Matson Dictated By: Jarrell Gonzales MD Dictated Date/Time: 03/26/24 7:44 am Reviewed By: Jarrell Gonzales MD Signed By: Jarrell Gonzales MD Signed Date/Time: 03/26/24 7:44 am Transcribed By: DAMI Transcribed Date/Time: 03/26/24 7:44 am * Exam Date Time Procedure Performing Provider Status 03/25/24 4:[address] Head/Brain W/O Contrast Colon , Tat julissa; Auth (Verified) Notes: (CT Head/Brain W/O Contrast) Reason For Exam: Brain mass or lesion;Other: RESULT: CT Head/Brain W/O Contrast CT Head/Brain W/O Contrast INDICATION: Reason: Other:; Brain mass or lesion; Clinical Question(s): Hematoma TECHNIQUE: Noncontrast head CT using axial technique and reconstructed in axial and coronal planes.Iterative reconstruction techniques are used to optimize dose and image quality. CTDIvol Head: 46.60 mGy, DLP Head: 772 mGy*cm. COMPARISON: CT 12/14/2015. FINDINGS: Manager Architectural view findings, lines and tubes: None. BRAIN AND EXTRA-AXIAL SPACES: There is subtle 3 to 4 mm hyperdensity within a left frontal sulcus on image 64 series 202 and sagittal image 29 suggestive of a focus of subarachnoid hemorrhage. No additional acute blood is identified No parenchymal hemorrhage, midline shift, or mass effect. Durham-white matter differentiation is wellpreserved. No acute infarct. Ventricles, sulci, and basilar cisterns are normal. No white matter lesions. No subdural or epidural collection. CALVARIUM, SKULL BASE, AND SOFT TISSUES: No fractures or suspicious bony lesions. The paranasal sinuses and mastoid air cells are clear. Visualized orbits and globes are intact. The extracranial soft tissues are unremarkable. IMPRESSION: Small solitary 3 to 4 mm hyperdensity in the left frontal lobe suggesting a focus of subarachnoid hemorrhage as above. No associated mass effect or edema. An actionable message ([place]) has been communicated via the [employer] system on 03/25/2024 4:29 PM, Message ID [id number]. WSN: [id number] Ordering Physician: Zaid Sevilla Dictated By: Kennedy Massey MD Dictated Date/Time: 03/25/24 4:29 pm Reviewed By: Kennedy Massey MD Signed By: Kennedy Massey MD Signed Date/Time: 03/25/24 4:29 pm Transcribed By: DAMI Transcribed Date/Time: 03/25/24 4:18 pm * Exam Date Time Procedure Performing Provider Status 03/25/24 4:08 PM Chest Portable Federico Rod; Auth ( Verified) Notes: (Chest Portable) Reason For Exam: Tube Placement RESULT: Chest Portable Chest Portable 03/25/2024 at 15:35 Reason: Tube Placement; Clinical Question(s): Tube Placement COMPARISON: 03/14/2024 and multiple priors. FINDINGS: LINES AND TUBES: Endotracheal tube with tip 3.7 cm proximal to the jay. Enteric tube courses below the diaphragm, tip not included in the memzn-hz-lora.. LUNGS AND PLEURA: Mild bibasilar atelectasis. Lungs are otherwise clear with no consolidation. There is overcrowding of the central pulmonary vasculature which is most likely related to low lung volumes. No pleural effusion. No pneumothorax. HEART, MEDIASTINUM AND STEVEN: Heart is normal in size. Normal mediastinal and hilar contour. BONES AND SOFT TISSUES: No acute abnormality. IMPRESSION: 1. Lines and tubes as described above. 2. No acute cardiopulmonary process. I have personally reviewed the images and I agree with this report. WSN: [id number] Ordering Physician: Zaid Sevilla Dictated By: Greg Tamez MD Dictated Date/Time: 03/25/24 4:27 pm Reviewed By: Antoine Craft MD, V Signed By: Antoine Craft MD, V Signed Date/Time: 03/25/24 4:32 pm Transcribed By: DAMI Transcribed Date/Time: 03/25/24 4:14 pm Vital Signs Most recent to oldest [Reference Range]: 1 2 3 Weight 86.2 kg (03/25/24 6:30 PM) 86.2 kg (03/25/24 6:23 PM) Oxygen Saturation [94-100 %] 92 % *L* (03/28/24 11:00 AM) 96 % (03/28/24 7:00 AM) 96 % (03/28/24 12:00 AM) Pulse Rate [55-90 bpm] 106 bpm *H* (03/28/24 11:00 AM) 106 bpm *H* (03/28/24 10:32 AM) 78 bpm (03/28/24 8:26 AM) Blood Pressure [90-138/55-84 mm Hg] 119/92mm Hg (03/28/24 11:00 AM) 119/92mm Hg (03/28/24 10:32 AM) 115/71mm Hg (03/28/24 8:26 AM) Respiratory Rate [16-30 br/min] 18 br/min (03/28/24 2:31 PM) 18 br/min (03/28/24 11:00 AM) 19 br/min (03/28/24 10:32 AM) Temperature [96.8-100.4 DegF] 97.8 DegF (03/28/24 11:00 AM) 97.8 DegF (03/28/24 7:00 AM) 98.2 DegF (03/28/24 12:00 AM) Liters per Minute 0 L/min (03/27/24 8:00 AM) 3 L/min (03/27/24 7:00 AM) 3 L/min (03/27/24 6:00 AM) Mode of Delivery (Oxygen) Room air (03/28/24 11:00 AM) Room air (03/28/24 7:00 AM) Room air (03/28/24 12:00 AM) Blood pressure sites Arm, left (03/28/24 11:00 AM) Arm, left (03/28/24 7:00 AM) Arm, left (03/28/24 12:00 AM) Temperature Route Oral (03/28/24 11:00 AM) Oral (03/28/24 7:00 AM) Oral (03/28/24 12:00 AM) Dry Weight 86.2 kg (03/25/24 6:23 PM) Weight Obtained Via Bed scale (03/25/24 6:30 PM) Bed scale (03/25/24 6:23 PM) Dry Weight Obtained Via Bed scale (03/25/24 6:23 PM) Social History Social History Type Response Smoking Status Former smoker, quit more than 30 days ago entered on: 03/10/24 Sex Admission evaluation note * Liz Matson MD: PERFORM, MODIFY Event Display: Admission Note Authored Date: [id number] Patient: ??DAREN GOLD ? Age:??44 Years?Sex:??Female?:??1980?? Chief Complaint/Reason for Consultation Obtunded requiring intubation after receiving ketamine for agitation History of Present Illness 44-year-old female with pertinent history of polysubstance use disorder on methadone, cirrhosis secondary to alcohol use disorder, likely MANSOOR, asthma/reactive airway disease, PTSD, depression, chronic pancreatitis on replacement therapy presented intoxicated and agitated, S/P intubation for respiratory failure. ?? Of note patient was recently discharged from [facility] on 03/17/2024 for similar presentation??and she was oversedated on CIWA resulting in hypercapnia??and was transferred into care??requiring BiPAP. ?? ED course As per EMS she was found having abnormal movements in her car in the parking lot at [employer] when EMS was called.?? Upon arrival patient had plenty of emptying the bottles near her and was refusing transport, received 350 mg of IM ketamine help facilitate transport given her acute intoxication and was transferred to the ED. Vitals remarkable for Afebrile, HR 104, BP 120/94, SpO2 99%. ET CO2 90's.?? She was unresponsive, disconjugate gaze, drooling, not following commands, occasional spontaneous movements. Given concern for airway protection, hence patient was intubated 7.5 ET, post intubation, she was started on propofol and fentanyl. EKG was unremarkable, sinus, RR 77, normal axis. CT head was remarkable for 3 to 4mm hyperintensity in left frontal lobe concerning for small subarachnoid. Patient was transferred to ICU for further evaluation and management.? On evaluation, patient is intubated on propofol 50 and fentanyl 100. Patient is quite responsiveand following commands. Vitals remarkable for BP 130/100, HR 88, SpO2 of 94% on FiO2 of 40%, TV of 400, PEEP of 5. As patient's mental status has markedly improved we decided to attempt SBT with PSV. Review of Systems Unable to review, intubated and sedated Objective Measurements?? Weight: 86.2 kg (03/25/24) Dry Weight: 86.2 kg (03/25/24) ? Vital Signs?? Temperature: 98.3 DegF (03/25/24 18:23:00) Temperature Route: Oral (03/25/24 18:23:00) Pulse Rate: 82 bpm (03/25/24 18:23:00) Heart Rate Monitored: 82 bpm (03/25/24 18:33:00) Respiratory Rate: 23 br/min (03/25/24 18:23:00) Vented: Yes (03/25/24 18:00:00) Systolic Blood Pressure:??140 mm Hg??High (03/25/24 18:33:00) Diastolic Blood Pressure:??101 mm Hg??High (03/25/24 18:33:00) Blood pressure sites: Arm, left (03/25/24 18:23:00) Mean Arterial Pressure: 114 mm Hg (03/25/24 18:23:00) Pulse Pressure: 39 mm Hg (03/25/24 18:23:00) Oxygen Saturation: 97 % (03/25/24 18:33:00) Mode of Delivery (Oxygen): Ventilator (03/25/24 18:00:00) FiO2: 40 % (03/25/24 18:33:00) End Tidal CO2: 37 mm Hg (03/25/24 18:33:00) Early Warning Score: 9 (03/25/24 17:21:30) ? Ventilator Settings?? FiO2: 40 % (18:33) ?? Intake/Output? 03/25 17:47 03/25 07:00 03/24 07:00 03/23 07:00 03/22 07:00 ?? 03/25 19:05 03/25 19:05 03/25 06:59 05/28 06:59 03/23 06:59 Intake ?0 ?0 ?0 ?0 ?0 Output ?150 ?150 ?0 ?0 ?0 Net Total ? -150 ? -150 ?0 ?0 ?0 ? Physical Exam General: Intubated and sedated HEENT: Pupils dilated CV: Regular rate and rhythm. No murmurs, gallops, rubs Respiratory: All gray clear to auscultation bilaterally. No wheezes, rales, rhonchi GI: Soft, nontender. Bowel sounds noted : No suprapubic tenderness Extremities: No lower extremity edema Neuro: Following commands, awake Skin: No lesions, wounds, rashes Assessment/Plan This is a 44-year-old female with pertinent history of polysubstance use disorder on methadone, cirrhosis secondary to alcohol use disorder, likely MANSOOR, asthma/reactive airway disease, PTSD, depression, chronic pancreatitis on replacement therapy??S/P intubation??respiratory failure was likely in the setting of intoxication in combination with receiving ketamine and her apnea resulting in CO2 narcosis. ?? Neurology/Psych Acute toxic encephalopathy Small Subarachnoid hemorrhage H/O polysubstance use on methadone. Patient was agitated on presentation. Alcohol level positive. On evaluation she was following commands. CT head was concerning for small solitary 3 to 4 mm hyperdensity in the left frontal lobe suggesting a focus of subarachnoid hemorrhage. We will monitor her neuro status. Plan: -Q2 Neuro checks -Neurology consulted, appreciate recommendations -Follow up with [facility] -Holding gabapentin, acamprosate, PRN trazodone, PRN hydroxyzine -Continue paroxetine -On methadone, kindly reconcile the dose with [facility] tomorrow ?? Sedation: Propofol gtt- will wean off, Start Precedex gtt which help with alcohol withdrawal Analgesia: Fentanyl gtt, PRN fent pushes ?? Cardiovascular No active issues ?? Pulm Acute on chronic hypercarbic respiratory failure S/P Intubation 03/25 Likely has a H/O MANSOOR not on CPAP. Plan: -SBT trial ?? Renal No active issues At baseline creat of 0.7 Has a Ibarra, monitor UO ?? GI/Liver Cirrhosis Likely compensated secondary to alcohol use disorder However ammonia level is elevated concerning for hepatic encephalopathy, however the more sensitiveis asterixis, unable to elicit as patient is sedated. Plan: -Continue home lactulose BID, monitor stool output -Alcohol cessation counseling -Plan to consult addiction medicine ?? Chronic Pancreatitis On pancrelipase at home which cannot be given OG tube Plan: -Plan to ask pharnacy for an alternative if she remains intubated ?? GI Px with Pantoprazole IV 40mg ?? Endocrine No active??issues ?? On ICU insulin protocol with POCG Q6 ?? Lines/Tubes Ibarra??Cath?? IV lines ?? Quality metrics Code Status: Presumed FULL CODE?? Diet:: NPO?? Med REc done using last DC summary?? VTE Px: Lovenox GI Px; PPI ?? Mother, Olga contacted,??unavailable.??03/25 ?? Plan and care discussed with attending physician Dr Harris ?? Liz Vasquez PGY-2 Internal??Medicine Resident ? Histories Past Medical History/Problem List Active [...] 1 pack a week. ??Type: Cigarettes. ? Medications Home Medications Acamprosate (acamprosate 333 [...] at bedtime?as needed?Sleep ? Inpatient Medications Medications (16) Active SCHEDULED: (7) Chlorhexidine 0.12% Oral Rinse UD (Peridex 0.12% Liquid) ??15 mL, Topically, 2 times a day Enoxaparin 40 mg Inj (Enoxaparin Inj) ??40 mg 0.4 mL, Subcutaneous Injection, Daily Gabapentin 300 mg Capsule (gabapentin 300 mg oral capsule) ??600 mg, By Mouth, 3 times a day Midazolam 2 mg Inj (Versed Inj) ??4 mg 4 mL, IV Push, Once Mineral Oil/Petrolatum Ophth Ointment (Mineral Oil /Petrolatum Ophth) ??2 drops, Eyes, Both, Every 4 hours Pancrelipase (Pancrelipase Capsule) ??36,000 units, By Mouth, 3 times a day Paroxetine 20 mg Tablet (PARoxetine 20 mg oral tablet) ??20 mg, By Mouth, Daily CONTINUOUS: (4) Dexmedetomidine 400 mcg / 100 mL NaCl 400 mcg (Precedex 400 mcg / 100 mL NaCl (Titrate) 400 mcg) ??400 mcg 100 mL, IV Infusion Fentanyl 1000mcg/100mL NaCL 1,000 mcg (FENTanyl 1000mcg / 100mL NaCl 1,000 mcg) ??1,000 mcg 100 mL,IV Infusion Insulin R 100 units in 100 mL NaCL 100 units [1 units/hr] + NaCL 0.9% Premixed IV 100 mL (Insulin R100 units in 100 mL Premix 100 units [1 units/hr] + NaCL 0.9% Premixed IV 100 mL) ??100 mL, IV Infusion, 1 mL/hr Propofol 10mg/mL Cont IV (100mL) 1,000 mg (Propofol 1% /100 mL 1,000 mg) ??1,000 mg 100 mL, IV Infusion PRN: (5) Bisacodyl 10 mg Suppository (Bisacodyl Supp) ??10 mg 1 supp, Rectally, 2 times a day Docusate Sodium 10 mg/mL Liquid UD (Colace Liquid) ??100 mg 10 mL, By Mouth, 2 times a day FENTanyl 50 mcg/mL Inj (2 mL) (FENTanyl Inj) ??50 mcg 1 mL, IV Push Slowly, Every 2 hours Lactulose 20 Gm/30mL Syrup (lactulose 10 gm/15 ml oral syrup) ??10 Gm 15 mL, By Mouth, 2 times a day Magnesium Hydroxide 8% Susp UD (Milk of Magnesia Liquid) ??30 mL, By Mouth, 2 times a day ? Results Recent Labs BLOOD COUNT & DIFF WBC 7.3 k/mm3 ()?? 03/25/2024 15:08 RBC 4.15 m/mm3 (Low)?? 03/25/2024 15:08 Hgb 12.0 Gm/dL ()?? 03/25/2024 15:08 Hct 38.3 % ()?? 03/25/2024 15:08 MCV 92.3 femtoliters ()?? 03/25/2024 15:08 MCH 28.9 pg ()?? 03/25/2024 15:08 MCHC 31.3 g/dL (Low)?? 03/25/2024 15:08 Platelet Count 124 k/mm3 (Low)?? 03/25/2024 15:08 RDW-SD 51.3 femtoliters (High)?? 03/25/2024 15:08 MPV 9.8 femtoliters ()?? 03/25/2024 15:08 Nucleated RBC (Automated) 0.0 #/100 WBC'S ()?? 03/25/2024 15:08 Abs. NRBC 0.0 k/mm3 ()?? 03/25/2024 15:08 Abs. Neut 5.1 k/mm3 ()?? 03/25/2024 15:08 Abs. Lymph 1.6 k/mm3 ()?? 03/25/2024 15:08 Abs. [place] 0.3 k/mm3 (Low)?? 03/25/2024 15:08 Abs. Eo 0.2 k/mm3 ()?? 03/25/2024 15:08 Abs. Baso 0.1 k/mm3 ()?? 03/25/2024 15:08 Neut % 69.8 % ()?? 03/25/2024 15:08 Lymph % 22.4 % ()?? 03/25/2024 15:08 [place] % 3.8 % (Low)?? 03/25/2024 15:08 Eos % 2.9 % ()?? 03/25/2024 15:08 Baso % 0.8 % ()?? 03/25/2024 15:08 Hemoglobin (POC) POC Cartridge 13.6 Gm/dL ()?? 03/25/2024 15:13 Hematocrit (POC) POC Cartridge 40 % ()?? 03/25/2024 15:13 Imm Gran 0.3 % ()?? 03/25/2024 15:08 Abs. Imm Gran 0.0 k/mm3 ()?? 03/25/2024 15:08 ?? BLOOD GAS pH Venous (POC) POC Cartridge 7.33 ()?? 03/25/2024 15:13 pCO2 Venous (POC) POC Cartridge 53.2 mm Hg (High)?? 03/25/2024 15:13 pO2 Venous (POC) POC Cartridge 29 mm Hg (Low)?? 03/25/2024 15:13 Est Bicarbonate (POC) POC Cartridge 28.3 mmol/L ()?? 03/25/2024 15:13 % O2 Sat Venous (POC) POC Cartridge 50 ()?? 03/25/2024 15:13 Base Excess (POC) POC Cartridge 2 ()?? 03/25/2024 15:13 pH 7.54 (High)?? 03/25/2024 15:58 pCO2 29 mm Hg (Low)?? 03/25/2024 15:58 pO2 77 mm Hg (Low)?? 03/25/2024 15:58 Bicarbonate, Estimated 24 mmol/L ()?? 03/25/2024 15:58 Specimen Type - Blood Gas ARTERIAL ()?? 03/25/2024 15:58 Percent O2 (FIO2) 50 ()?? 03/25/2024 15:58 ?? CHEM GENERAL Sodium 145 mmol/L ()?? 03/25/2024 15:08 Potassium 3.5 mmol/L (Low)?? 03/25/2024 15:08 Chloride 105 mmol/L ()?? 03/25/2024 15:08 Bicarbonate Level 26 mmol/L ()?? 03/25/2024 15:08 Anion Gap 14 ()?? 03/25/2024 15:08 Sodium (POC) POC Cartridge 146 mmol/L (High)?? 03/25/2024 15:13 Potassium (POC) POC Cartridge 3.6 mmol/L ()?? 03/25/2024 15:13 Glucose Level 106 mg/dL (High)?? 03/25/2024 15:08 Glucose (POC) POC Cartridge 105 (High)?? 03/25/2024 15:13 BUN 7 mg/dL ()?? 03/25/2024 15:08 Creatinine-Blood 0.73 mg/dL ()?? 03/25/2024 15:08 Estimated GFR Creatinine 103 ML/MIN/1.73 M2 ()?? 03/25/2024 15:08 Calcium 9.0 mg/dL ()?? 03/25/2024 15:08 Calcium, Ionized pH Corrected 1.05 mmol/L (Low)?? 03/25/2024 15:08 Ionized Calcium (POC) POC Cartridge 1.07 mmol/L (Low)?? 03/25/2024 15:13 Magnesium 1.8 mg/dL ()?? 03/25/2024 15:08 Protein, Total 8.2 Gm/dL ()?? 03/25/2024 15:08 Albumin 4.1 Gm/dL ()?? 03/25/2024 15:08 AG Ratio 1.0 ()?? 03/25/2024 15:08 Alkaline Phosphatase 99 units/L ()?? 03/25/2024 15:08 AST (SGOT) 88 units/L (High)?? 03/25/2024 15:08 ALT (SGPT) 31 units/L ()?? 03/25/2024 15:08 Bilirubin, Total 1.0 mg/dL ()?? 03/25/2024 15:08 ?? ENDOCRINE/TUMOR MARKER Blood <1 mIU/mL ()?? 03/25/2024 15:08 ?? MISC. CHEMISTRY Ammonia, Venous 52 ??mole/L (High)?? 03/25/2024 15:51 ?? TOXICOLOGY/TDM Ethanol, Serum or Plasma 298 mg/dL (Abnormal)?? 03/25/2024 15:08 Salicylate Level <0.3 mg/dL (Low)?? 03/25/2024 15:08 ? Blood Gases pH:??7.54??High (15:58) pCO2:??29 mm Hg??Low (15:58) pO2:??77 mm Hg??Low (15:58) Bicarbonate, Estimated: 24 mmol/L (15:58) Specimen Type - Blood Gas: ARTERIAL (15:58) Specimen Type - Blood Gas: VENOUS (15:13) Percent O2 (FIO2): 50 (15:58) pH Venous (POC) POC Cartridge: 7.33 (15:13) pCO2 Venous (POC) POC Cartridge:??53.2 mm Hg??High (15:13) pO2 Venous (POC) POC Cartridge:??29 mm Hg??Low (15:13) Est Bicarbonate (POC) POC Cartridge: 28.3 mmol/L (15:13) % O2 Sat Venous (POC) POC Cartridge: 50 (15:13) Base Excess (POC) POC Cartridge: 2 (15:13) ?? Image ?CT Head/Brain W/O Contrast??03/25/2024 16:16 by Toya García ?Small solitary 3 to 4 mm hyperdensity in the left frontal lobe suggesting a focus of subarachnoid hemorrhage as above. No associated mass effect or edema. ?XR Chest Portable??03/25/2024 16:08 by Rod Caballero ?1. Lines and tubes as described above. 2. No acute cardiopulmonary process. ?? Hospital Progress note * Jerrica Melton RN: PERFORM, SIGN, VERIFY Event Display: Progress Note Hospital Authored Date: Patient: DAREN GOLD Age: 44 years Sex: Female : 1980 Associated Diagnoses: None Author: Jerrica Melton RN Findings Problem Related to Alteration in Comfort : Alteration in Comfort/new 03/28/2024 15:00 EDT Alteration in Comfort Related to Disease process, Other: ETOH withdrawal Goals & Outcomes: Comfort Pt will report acceptable level of comfort & pain control, Pt will state importance of adhering to pain strategy regime, Pt will demonstrate necessary skills to manage pain, Non-verbal indicators will indicate comfort/pain control Interventions Implemented: Comfort Assess pain using appropriate pain scale/tools, Assess aggravating factors & prevent them accordingly, Assess alleviating factors & promote them accordingly BH Goals/Interventions, Comfort Yes Comfort, Problem Start 03/25/2024 19:00 Reviewed plan with, Comfort Patient Patient Progression, Comfort Pt progressing according to plan Comfort, Problem Ongoing Yes . Evaluation Patient alert/oriented with intermittent Short term memory loss. Patient anxious to be discharged. Pt verbalized understanding of DC instructions. Patient left via lyft.. Discharge Information Case Management Discharge Plan : Case Management Discharge Plan Data 03/28/2024 16:05 EDT Discharge Level of Care at Discharge Home/[facility] Pulmonary Rehab Discharge : Pulmonary Rehab Discharge Status 03/26/2024 13:00 EDT PEEP 5 03/26/2024 12:00 EDT PEEP 5 03/26/2024 11:00 EDT PEEP 5 03/26/2024 10:51 EDT PEEP 5 03/26/2024 9:00 EDT PEEP 5 03/26/2024 8:00 EDT PEEP 5 03/26/2024 7:35 EDT PEEP 5 03/26/2024 7:00 EDT PEEP 5 03/26/2024 6:00 EDT PEEP 5 03/26/2024 5:00 EDT PEEP 5 03/26/2024 4:02 EDT PEEP 5 03/26/2024 4:00 EDT PEEP 5 03/26/2024 3:00 EDT PEEP 5 03/26/2024 2:00 EDT PEEP 5 03/26/2024 1:00 EDT PEEP 5 03/26/2024 0:42 EDT PEEP 5 03/26/2024 0:00 EDT PEEP 5 03/25/2024 23:39 EDT PEEP 5 03/25/2024 23:00 EDT PEEP 5 03/25/2024 22:00 EDT PEEP 5 03/25/2024 21:00 EDT PEEP 5 03/25/2024 20:00 EDT PEEP 5 03/25/2024 19:45 EDT PEEP 5 03/25/2024 18:33 EDT PEEP 5 03/25/2024 18:00 EDT PEEP 5 03/25/2024 16:22 EDT PEEP 8 03/25/2024 15:23 EDT PEEP 8 * Gina MARINELLI, Alice: PERFORM, MODIFY Event Display: Progress Note Hospital Authored Date: Patient: ??DAREN GOLD ? Age:??44 Years?Sex:??Female?:??1980?? Subjective Date of exam: 03/27/24 ?? 44-year-old female with pertinent history of polysubstance use disorder on methadone, cirrhosis secondary to alcohol use disorder, likely MANSOOR, asthma/reactive airway disease, PTSD, depression, chronic pancreatitis on replacement therapy??S/P intubation??respiratory failure was likely in the settingof intoxication in combination with receiving ketamine and her apnea resulting in CO2 narcosis. ??Patient was admitted to the MICU for further management after??intubation.?? Patient was noted to have a small subarachnoid hemorrhage??seen on??head CT??without contrast.??On 03/25, was managed with blood pressure control, head of bed at 30 degrees, monitoring of neurologic function without any signsof neurologic deficit when patient was weaned off of sedation.?? Obtained and repeat head CT assistant professor of history on 03/27 for concerns of the patient was having a headache in the setting of the small subarachnoid hemorrhage seen on initial head CT.?? On this repeat imaging, no subarachnoid hemorrhage was appreciated.?? Possibility that the initial imaging showed artifact versus 3 mm SAH.?? Neurology hasseen the patient, and has signed off given the resolution of the small SAH/possibility that the small hyperdensity reflected artifact.?? Patient extubated on 03/26 without complication.?? Given alcohol use disorder, patient placed on CIWA, and has been scoring low, not requiring PRNs at this time.??Regarding her polysubstance use, patient taking 130 mg of methadone at home, but in the setting of her altered mental status and presentation to the hospital, with the help of addiction medicine, patient was initially started on starting dose of methadone of 40, with plan for increased dose of 10 mg daily.?? Transferred to acute floor today. ?? During my exam,??she complains of??10/ headache??with photosensitivity, states it is similar to her migraine headaches.?? Had nausea and 1 episode of vomiting.?? Complains of lower abdominal pain.?? States that she feels very gassy.?? I had ordered Fioricet for her pain and she states that it hashelped her minimally.?? Rest of ROS negative. ?? Review of Systems Constitutional: No fevers, chills HEENT:??Severe headache with photosensitivity Cardiovascular: No chest pain Respiratory: No shortness of breath, no cough, no wheezing GI: No nausea, no vomiting, no abdominal pain, no change in bowel habits Neuro: No weakness, numbness, tingling in extremities Psych: No acute behavioral changes Muscular skeletal: No joint or muscle pain Endocrine: No recent weight loss or gain, no change in appetite : No dysuria or hematuria Objective Vital Signs?? Temperature: 97.8 DegF (03/27/24 18:00:00) Temperature Route: Oral (03/27/24 18:00:00) Pulse Rate: 85 bpm (03/27/24 18:00:00) Heart Rate Monitored: 75 bpm (03/27/24 14:00:00) Respiratory Rate: 24 br/min (03/27/24 18:08:00) Respiratory Rate: 24 br/min (03/27/24 18:08:00) Vented: No (03/27/24 14:00:00) Systolic Blood Pressure: 124 mm Hg (03/27/24 18:00:00) Diastolic Blood Pressure: 66 mm Hg (03/27/24 18:00:00) Blood pressure sites: Arm, left (03/27/24 18:00:00) Pulse Pressure: 58 mm Hg (03/27/24 18:00:00) Oxygen Saturation: 99 % (03/27/24 18:00:00) Liters per Minute: 0 L/min (03/27/24 08:00:00) Mode of Delivery (Oxygen): Room air (03/27/24 18:00:00) Early Warning Score:??13??Critical (03/27/24 18:08:43) SOFA Calculated: 7 (03/27/24 10:18:07) ? Intake/Output? 03/25 17:47 03/27 07:00 03/26 07:00 03/25 07:00 03/24 07:00 ?? 03/27 19:25 03/27 19:25 03/27 06:59 03/26 06:59 03/25 06:59 Intake ? 5589.3 ?995 ? 1893.2 ? 2701.1 ?0 Output ? 4674 ? 1900 ? 2043 ?731 ?0 Net Total ?915.3 ? -905 ? -149.8 ? 1970.1 ?0 ? Urine Count ?2 ?1 ?1 ?0 ?0 ? Physical Exam General: Appears to be uncomfortable due to headache HEENT: Atraumatic, normocephalic, EOMI, PERRLA, moist mucous membranes Neck: Supple, no lymphadenopathy, no carotid bruit Cardiac: S1, S2 heard, no murmurs Pulmonary: Clear to auscultation bilaterally, good bilateral air entry Abdomen: Soft, nontender, nondistended, bowel sounds heard, no organomegaly Extremities: No cyanosis, clubbing or edema Skin: No rash Neuro: No focal deficits, awake and alert Psych:??Mood and affect appropriate for encounter Results Abnormal Labs ?? BLOOD COUNT & DIFF Abs. Imm Gran?0.0 k/mm3 ()?03/27/2024 04:16 Abs. [place]?0.2 k/mm3 (Low)?03/27/2024 04:16 Abs. NRBC?0.0 k/mm3 ()?03/27/2024 04:16 Hct?30.9 % (Low)?03/27/2024 04:16 Hgb?10.1 Gm/dL (Low)?03/27/2024 04:16 Imm Gran?0.0 % ()?03/27/2024 04:16 MCHC?32.7 g/dL (Low)?03/27/2024 04:16 Nucleated RBC (Automated)?0.0 #/100 WBC'S ()?03/27/2024 04:16 Platelet Count?72 k/mm3 (Low)?03/27/2024 04:16 RBC?3.50 m/mm3 (Low)?03/27/2024 04:16 RDW-SD?47.5 femtoliters (High)?03/27/2024 04:16 WBC?2.8 k/mm3 (Low)?03/27/2024 04:16 ?? CHEM GENERAL AG Ratio?1.0 ()?03/27/2024 04:16 AST (SGOT)?62 units/L (High)?03/27/2024 04:16 Albumin?3.3 Gm/dL (Low)?03/27/2024 04:16 Bilirubin, Total?1.9 mg/dL (High)?03/27/2024 04:16 Estimated GFR Creatinine?110 ML/MIN/1.73 M2 ()?03/27/2024 04:16 Glucose Level?113 mg/dL (High)?03/27/2024 04:16 Magnesium?1.5 mg/dL (Low)?03/27/2024 04:16 Potassium?3.3 mmol/L (Low)?03/27/2024 04:16 ?? Note: Critical results are displayed in red. ? Assessment/Plan Assessment:??44-year-old female with pertinent history of polysubstance use disorder on methadone, cirrhosis secondary to alcohol use disorder, likely MANSOOR, asthma/reactive airway disease, PTSD, depression, chronic pancreatitis on replacement therapy??S/P intubation??respiratory failure was likely in the setting of intoxication in combination with receiving ketamine and her apnea resulting in CO2 narcosis.??Patient was admitted to the MICU for further management after??intubation.??Patient was noted to have a small subarachnoid hemorrhage??seen on??head CT??without contrast.??On 03/25, was managed with blood pressure control, head of bed at 30 degrees, monitoring of neurologic function without any signs of neurologic deficit when patient was weaned off of sedation.??Obtained and repeat headCT assistant professor of history on 03/27 for concerns of the patient was having a headache in the setting of the small subarachnoid hemorrhage seen on initial head CT.??On this repeat imaging, no subarachnoid hemorrhage was appreciated.??Possibility that the initial imaging showed artifact versus 3 mm SAH.??Neurology has seen the patient, and has signed off given the resolution of the small SAH/possibility that the small hyperdensity reflected artifact.??Patient extubated on 03/26 without complication.??Given al cohol use disorder, patient placed on CIWA, and has been scoring low, not requiring PRNs at this time.??Regarding her polysubstance use, patient taking 130 mg of methadone at home, but in the settingof her altered mental status and presentation to the hospital, with the help of addiction medicine,patient was initially started on starting dose of methadone of 40, with plan for increased dose of 10 mg daily.? Acute and chronic respiratory failure with hypercapnia (J96.22) ?Grouped with??MANSOOR (obstructive sleep apnea) (G47.33),??Acute encephalopathy (G93.40) ? Secondary to intoxication in combination with receiving ketamine, has history of MANSOOR Intubated on 03/25, extubation 03/26 Currently saturating well on room air ?? Polysubstance abuse (F19.10):??History of polysubstance abuse, on methadone 130 mg/day, last refillon 03/19 Ethanol level was high on admission UTox positive for barbiturates, benzodiazepines, opiates; though sample appears to be taken after extubation - possibility for medication contaminants Continue gabapentin, acamprosate and as needed hydroxyzine Continue paroxetine Addiction medicine consulted, appreciate input.??Starting methadone at 40 mg daily with increase of10 mg/day, monitor EKG for QTc prolongation.??Received 40 mg today, I have increased dose to 50 mg for tomorrow. ?? Subarachnoid hemorrhage (I60.9):??Initial CT scan of the head showing 3 to 4 mm SAH, repeat scan from last night showed resolution of SAH, ?possible artifact Neurology consulted, appreciate recommendations, no need for MRI or repeat imaging, Goal SBP less than 150 Stat CTh for any acute neuro changes Continue every 4 hours neurochecks ?Antithrombotic Therapy by End of Hospital Day 2:??Hemorrhagic Stroke ?Statin Ordered:??Hemorrhagic Stroke ?? Headache is likely sec to migraine, similar to her migraine??episodes. Fioricet offering some relief,??continue PRN Ordered magnesium 2g IV, monitor response She has had the same headache since last night. CTH was done last night for headache and did not show any acute process. I do not think we??need to re-image at this time.??Will scan if there is any change??in her neuro status ?? Chronic pancreatitis (K86.1):? N/V and abd pain on??admission??was most likely due to alcohol withdrawal. Resolved. Cont??Pancrelipase ?? Anxiety (F41.9):? - Paroxetine, Trazodone, Hydroxyzine PRN ?? Alcohol withdrawal (F10.939):?? Ativan per CIWA protocol.?Oral multivitamins ordered, seizure precautions ?? Alcohol dependence (F10.20) ?Grouped with??Alcohol withdrawal (F10.939),??Cirrhosis with alcoholism (K70.30) ? - Ativan per CIWA protocol.?Oral multivitamins ordered, seizure precautions -??Pt with pancytopenia and??INR elevation. No known ascites, esophageal??varices or hepatic encephalopathy.?? - Strict abstinence from alcohol - GI outpt eval??and f/u, needs EGD ?? VTE Prophylaxis:??Lovenox ?VTE Prophylaxis Assessment:??VTE Prophylaxis Ordered ?? Discharge Planning:??1-2 days ?? Code Status:??Full code ?Order Code Status:??Code Status Ordered ?? Called her mother Olga and updated??about??subarachnoid hemorrhage as the patient??wanted me to update her. ??Please note patient does not want??her to get updates on any??other??current acute issues ?? * Ksenia Cabral RN: PERFORM, SIGN, VERIFY, MODIFY, SIGN Event Display: Progress Note Hospital Authored Date: Patient: DAREN GOLD Age: 44 years Sex: Female : 1980 Associated Diagnoses: None Author: Ksenia Cabral RN Findings Problem Related to Alteration in Comfort : Alteration in Comfort/new 03/27/2024 18:00 EDT Alteration in Comfort Related to Disease process, Other: ETOH withdrawal Goals & Outcomes: Comfort Pt will report acceptable level of comfort & pain control, Pt will state importance of adhering to pain strategy regime, Pt will demonstrate necessary skills to manage pain, Non-verbal indicators will indicate comfort/pain control Interventions Implemented: Comfort Assess pain using appropriate pain scale/tools, Assess aggravating factors & prevent them accordingly, Assess alleviating factors & promote them accordingly Goals/Interventions, Comfort Yes Comfort, Problem Start 03/25/2024 19:00 Reviewed plan with, Comfort Patient Patient Progression, Comfort Pt progressing according to plan Comfort, Problem Ongoing Yes . Alteration in Neurological : Alteration in Neurological Function/new 03/27/2024 18:00 EDT Alteration in Neuro status Related to Other: ?SAH and ETOH withdrawal Goals & Outcomes, Neurological Lab studies/diagnostic tests within pt specific limits, Pt is safe with transfers & activities, Pt will be hemodynamically stable, Pt will be Neurologically stable, Pt will become pain free with appropriate intervention, Pt will maintain intact skin integrity,Pt will remain free from injury, Pt will resume/maintain adequate cardiac output, Pt/caregiver willstate understanding of plan/goals of care Interventions, Neurological Assess/monitor for abnormal posturing, Assess/monitor for gaze pattern/extraocular movements, Assess/monitor neurologic status, Assess/monitor VS per unit standards & prn, Maintain HOB at least 30 deg, Maintain patient safety if unsteady gait, Monitor Fluid & Electrolytes, Serum Osmolarity, Monitor for headaches, nausea, vomiting, Monitor speech fluency, aphasia, word finding difficulty, Physical assessment per unit standards, Provide emotional support to Pt/caregiver, Teach pt/caregiver on plan of care, treatment, s/s & meds, Elevate HOB & keep head midline in sniffing position BH Goals/Interventions, Neurological Yes Neurological, Problem Start 03/25/2024 19:00 Reviewed plan with, Neurological Patient Patient Progression, Neurological Pt progressing according to plan . Evaluation Pt alert and oriented x 4. Pt arrived at approx 1600. Report received from Terri in mICU. Pt transported via bed. Pt arrived crying and in pain. Per pt had migraine and eventually started vomiting.Pt also requested to go to the bathroom. This service writer advisor ambulated pt to bathroom and noted unsteady gait. Bed alarm placed on. MD aware of all the above. Pt administered medications as ordered with migraine of slight relief and no further vomiting. MD over to see pt this evening and will place furtherorders. Emotional support and comfort provided. Cold packs for back of neck and cool cloths for forehead provided. Will continue to monitor and report changes. Pt declines to fill out HCP form. Discharge Information Pulmonary Rehab Discharge : Pulmonary Rehab Discharge Status 03/26/2024 13:00 EDT PEEP 5 03/26/2024 12:00 EDT PEEP 5 03/26/2024 11:00 EDT PEEP 5 03/26/2024 10:51 EDT PEEP 5 03/26/2024 9:00 EDT PEEP 5 03/26/2024 8:00 EDT PEEP 5 03/26/2024 7:35 EDT PEEP 5 03/26/2024 7:00 EDT PEEP 5 03/26/2024 6:00 EDT PEEP 5 03/26/2024 5:00 EDT PEEP 5 03/26/2024 4:02 EDT PEEP 5 03/26/2024 4:00 EDT PEEP 5 03/26/2024 3:00 EDT PEEP 5 03/26/2024 2:00 EDT PEEP 5 03/26/2024 1:00 EDT PEEP 5 03/26/2024 0:42 EDT PEEP 5 03/26/2024 0:00 EDT PEEP 5 03/25/2024 23:39 EDT PEEP 5 03/25/2024 23:00 EDT PEEP 5 03/25/2024 22:00 EDT PEEP 5 03/25/2024 21:00 EDT PEEP 5 03/25/2024 20:00 EDT PEEP 5 03/25/2024 19:45 EDT PEEP 5 03/25/2024 18:33 EDT PEEP 5 03/25/2024 18:00 EDT PEEP 5 03/25/2024 16:22 EDT PEEP 8 03/25/2024 15:23 EDT PEEP 8 Consult note * Vicente Walker: PERFORM, MODIFY, MODIFY Event Display: Consultation Note Authored Date: Patient: ??DAREN GOLD ? Age:??44 Years?Sex:??Female?:??1980?? Chief Complaint/Reason for Consult Obtunded requiring intubation after receiving ketamine for agitation History of Present Illness 44 yo F w/ PMH polysubstance use on methadone, cirrhosis 2/2 ETOH dependence, MANSOOR, asthma/reactive airway disease, PTSD, depression, chronic pancreatitis on replacement therapy, who presented to ED 03/25 via EMS for AMS. Patient was found in her car w/ abnormal movements, prompting EMS call. Empty alcohol bottles were found in her car. Patient was refusing transport, received 350 mg IM ketamine for safe transportation. In ED patient was unresponsive, dysconjugate gaze, drooling, not following commands. Patient intubated for airway protection, post intubation started on propofol and fetanyl. CTH showing 3-4 mm hyperintensity in L frontal lobe concerning for small SAH. Patient admitted to MICU, on exam was following commands, responsive, titrating propofol down, started Precedex. Patient agitated trying to self extubate requiring soft wrist restraints. Patient currently on propofol 10, fetanyl 100 and precedex 1.4. Labs showing pancytopenia. Utox positive barbituates, opiates, benzodiazepines. Received versed 5 mg. Ethanol positive. ?? Per chart review, patient discharged 03/17/24 for similar. Was oversedated on CIWA resulting in hypercapnia needing BiPAP. ?? Review of Systems Unable to assess d/t intubation and sedation Physical Exam Vitals & Measurements T:??100.8?F?? HR:??67??(Monitored)?? RR:??21?? BP:??139/86?? SpO2:??96%?? WT:??86.2??kg?? Gen: drowsy , intubated and sedated. propofol 10, fentanyl 100, precedex 1.4 HEENT: normocephalic, atraumatic.??No ptosis.??Nares patent. Mouth normal. Psych: not agitated Skin: warm and dry Neuro: GCS 9T??- did nod yes to a question??([id number]). follows some simple commands. Opens eyes to verbal briefly, needs repeated prompting. Cranial Nerves:??pupils 3 b/l,??brisk. No obvious facial droop. Motor:?? No abnormal movements. equal b/l hand destination imagination coordinator and moves b/l feet Sensation: nods yes to feeling light touch throughout, grimace to pinch throughout, slight withdrawal BLE. Coordination:??unable to assess.??Gait not assessed. Assessment/Plan 44 yo F w/ PMH polysubstance use on methadone, cirrhosis 2/2 ETOH dependence, MANSOOR, asthma/reactive airway disease, PTSD, depression, chronic pancreatitis on replacement therapy, who presented to ED 03/25 via EMS for AMS, s/p intubation for respiratory failure likely from alcohol intoxication and receiving ketamine. Patient was found in her car w/ abnormal movements, prompting EMS call. Empty alcohol bottles were found in her car. Patient was refusing transport, received 350 mg IM ketamine for safe transportation. In ED patient was unresponsive, dysconjugate gaze, drooling, not following commands. Patient intubated for airway protection, post intubation started on propofol and fetanyl. CTH showing 3-4 mm hyperintensity in L frontal lobe concerning for small SAH. Patient admitted to MICU, onexam was following commands, responsive, titrating propofol down, started Precedex. Patient agitated trying to self extubate requiring soft wrist restraints. Patient currently on propofol 10, [id number] and precedex 1.4. Labs showing pancytopenia. Utox positive barbituates, opiates, benzodiazepines. Received versed 5 mg. Ethanol positive. ?? DDX:??Acute toxic encephalopathy 3-4 mm??hyperintensity in L frontal lobe suggesting small SAH ? Plan: -q4 neurochecks -rec brain MRI w/ and w/o -SBP <150 -stat CTH for any acute changes -c/w precedex, fentanyl,??weaning propofol, primary team plans SBT trial -remainder of care per primary team ?? Neurology will follow ?? D/w Dr. Del Rio and ??Estuardo ? Problem List/Past Medical History Ongoing Abdominal pain Alcohol withdrawal Allergic reaction Cystic fibrosis carrier Eating disorder Hip pain Hyperbilirubinemia Hypokalemia Hypokalemia Lactic acid acidosis LGSIL (low grade squamous intraepithelial dysplasia) Liver cirrhosis Obese class I Obesity PTSD - Post-traumatic stress disorder Substance abuse in remission Procedure/Surgical History Laparoscopy, surgical; cholecystectomy: 2003 Tonsillectomy and adenoidectomy; age 12 or over Home Medications Acamprosate: 666 mg, By Mouth, 3 times a day with meals Albuterol: 2 puffs, Inhalation, Every 4 hours, PRN (as needed) Albuterol: 2 puffs, Inhalation, 4 times a day, PRN (as needed for wheezing) Gabapentin: 600 mg = 1 tablet, By Mouth, 3 times a day HydrOXYzine: 25 mg = 1 tablet, By Mouth, 2 times a day, PRN (anxiety) Lactulose: 10 Gm = 15 mL, By Mouth, 2 times a day, PRN (as needed for constipation) Magnesium Oxide: 500 mg = 1 capsule, By Mouth, Daily Methadone: 130 mg, By Mouth, Daily Multivitamin: 1 tablet, By Mouth, Daily Pancrelipase: 1 capsule, By Mouth, 3 times a day Pantoprazole: 40 mg = 1 tablet, By Mouth, Daily Paroxetine: 20 mg = 1 tablet, By Mouth, Daily Polyethylene Glycol 3350: 17 Gm, By Mouth, Daily, dissolve in 4 to 8 oz of beverage Senna: 8.6 mg = 1 tablet, By Mouth, 2 times a day, PRN (Constipation) Sumatriptan: 50 mg = 1 tablet, By Mouth, Daily, PRN (for migraine headache), may repeat dose after 2 hours up to a maximum of 2 Trazodone: 50 mg = 1 tablet, By Mouth, Daily at bedtime, PRN (Sleep) Allergies Cats??(hives, rash) Compazine??(rash masking effect) Dust??(hives) LaMICtal??(rash) Social History Alcohol Use: Current. Frequency: 3-5 times per week. Type: Liquor. Exercise Regular exercise: Yes. Exercise frequency: 5-6 times/week. Substance Abuse Use: Past. Other: Opiates, pt has been on Suboxone x6 yrs. Tobacco Use: Former smoker, quit more than 30 days ago. Family History Mother: Hypertension Pat. Grandmother: Cancer * Margarita Del Rio MD: PERFORM Event Display: Consultation Note Authored Date: [id number] ? NEUROCRITICAL CARE ATTENDING ATTESTATION: I have seen and examined this patient. I have reviewed the care provided to the patient by MICHELET Alcantara immediately after the visit. I have reviewed the patient???s medical history, physical exam findings, and the??assessment and plan as documented in above mentioned note. I am in agreement with theplan of care as documented in the note with the following highlights and additions. ?? 44yo F with h/o etoh abuse, withdrawal seizures, COPD, prior opiate abuse (on methadone), PTSD, cirrhosis, chronic pancreatitis, migraines,??who presented to [facility] 03[place] after being found intoxicatedin her??vehicle with multiple empty?nips?around her. No EMS runsheet available for review but she was reportedly agitated on their arrival for which they administered 350mg IM ketamine. On arrival to ED she remained obtunded with sonorous respirations for which she was intubated. CTH imagesreviewed showed tiny/punctate L frontal hyperdensity suggestive of a small cortical SAH. She was placed on propofol/fentanyl for sedation and admitted to MICU. Unknown whether she had any recent injury to her head. She has now been weaned off sedation and is waking up and following commands. There was??never any witnessed seizures. ?? Patient is??intubated??and unable to provide history or review of systems. ?? Exam today shows:?? GEN? intubated, precedex 1.4 not held; eyes open to voice, falls asleep easily but when awake she follows all commands and can nod yes/no appropriately to questions CN - PERRL, EOMI,??+spontaneous cough MOTOR: no drift. BUE - 5/5 throughout, BLE -??4/5 throughout SENSATION: intact and symmetric to LT in BUE and BLE CEREBELLUM: no nystagmus CV/PULM - RRR, no murmurs; lungs CTAB ?? A/P: L frontal cortical SAH, ?traumatic in nature although no external signs of trauma; patient is overall unhealthy so need to consider an underlying mass/lesion; q4h neuro checks ok; hold SQH untiltomorrow; obtain nonurgent MRI brain with/without contrast; remainder of care as per MICU; we will follow peripherally. ?? Margarita Del Rio MD Neuro-critical Care Attending ?? Note * Jerrica Melton RN: PERFORM Event Display: Discharge/Transfer Note Hospital Authored Date: [id number] Nursing Discharge Note Entered On: 03/28/2024 19:04 EDT Performed On: 03/28/2024 16:05 EDT by Jerrica Melton RN Nursing Discharge Note 2 Discharge Time : 03/28/2024 17:05 EDT Discharge Level of Care at Discharge : Home/Usp/Foster Care Patient Left Unit Via : Ambulatory Patient Accompanied Off Unit with : Other: [employer] DC Instructions Provided & Signed by Pt : Yes Patient Understands D/C Instructions : Yes Patient Instructions Discharge Signed : Yes Did Pt have Specialty Bed or Wound Vac : No Jerrica Melton RN - 03/28/2024 19:03 EDT * Graeme Krishnan MD: PERFORM Event Display: Discharge/Transfer Note Hospital Authored Date: [id number] Patient: ??DAREN GOLD ? Age:??44 Years?Sex:??Female?:??1980?? Patient Information Discharge Location: D6B Primary Care Physician: Rebekah Fiore MD Admit Date/Time: 03/25/24 17:47 Discharge Disposition Discharge Disposition: Home: No Services Discharge Diagnosis Cirrhosis (K74.60) Migraine (G43.909) Acute encephalopathy (G93.40) Alcohol dependence (F10.20) Alcohol withdrawal (F10.939) Alcohol withdrawal (F10.939) Anxiety (F41.9) Chronic pancreatitis (K86.1) Cirrhosis with alcoholism (K70.30) MANSOOR (obstructive sleep apnea) (G47.33) Subarachnoid hemorrhage (I60.9) Polysubstance abuse (F19.10) Acute and chronic respiratory failure with hypercapnia (J96.22) _ Discharge Medications Acamprosate (acamprosate 333 mg [...] tablet)?50?Milligram?1?tablet?By Mouth?Daily at bedtime?as needed?Sleep Medications Started None Medications Discontinued None Doses Changed Methadone Allergies Allergies ?(Active and Proposed Allergies Only) LaMICtal? (Severity: Unknown severity, Onset: Unknown) ?Reactions: rash Compazine? (Severity: Unknown severity, Onset: Unknown) ?Reactions: rash masking effect Dust? (Severity: Unknown severity, Onset: Unknown) ?Reactions: hives Cats? (Severity: Unknown severity, Onset: Unknown) ?Reactions: rash, hives ? Future Appointments Saturday 2:30 PM EDT ?? With: Malikmiah MORRIS, Nha Tri Where: [facility] [address] [place] [address]- Status: Pending Hospital Course Daren is a 44-year-old female with pertinent history of polysubstance use disorder on methadone, cirrhosis secondary to alcohol use disorder, MANSOOR, asthma/reactive airway disease, PTSD, depression, chronic pancreatitis on replacement therapy??who presented??to the emergency department on 03/25 EMSas she was found to have abnormal movements in her car in a parking lot. When EMS arrived the patient had an empty nip bottles and was refusing transport for which she received 250 mg of IM ketamine and was transported to the emergency department. In the emergency department she required intubationfor airway protection in the setting of intoxication, ketamine administration and possible CO2 narcosis given her history of MANSOOR. CT scan of the head and brain without contrast showed initially a small solitary 3 to 4 mm hyperdensity in the left frontal lobe suggesting a focus of subarachnoid hemorrhage, no associated mass effect or edema was observed. The patient was admitted to the ICU given int ubation in the emergency department. Neurology was consulted given her CT findings with concerns ofsubarachnoid hemorrhage neurology was consulted, with recommendations of obtaining an MRI and continue neurochecks. A CT scan of the head/brain without contrast was obtained on 03/27 as she had worsening headache and this did not find any acute intracranial pathology the previously identified subarachnoid hemorrhage was no longer seen which could represent evolving blood products versus prior artifact. Neurology signed off and had no further recommendations. The patient was transferred to [facility] on 03/27. The patient to the is very adamant about going home. She has capacity to make medical decisions and states that she needs to go back home to be with her children. States that she is not having alcohol withdrawal as she only drank that day and has been sober for years. Currently justgetting 50 mg of methadone (with plan to increase 10 mg daily) given concerns for respiratory depression which resulted in her intubation on admission. She thinks that she is scoring on CIWA due to he r lower methadone dose while inpatient. Discussed the risks of leaving the hospital and our concerns of withdrawal but still she wants to go home. The patient is stable to go home. ?? Acute and chronic respiratory failure with hypercapnia (J96.22): Resolved ? Grouped with MANSOOR (obstructive sleep apnea) (G47.33), Acute encephalopathy (G93.40), resolved ? Secondary to intoxication in combination with receiving ketamine ??Intubated on 03/25 for airway protection, extubation 03/26 -??Currently saturating well on room air. ??- Follow up with PCP within 1-2 weeks. ?? Polysubstance abuse (F19.10):??History of polysubstance abuse, on methadone 130 mg/day, last refillon 03/19 ??Ethanol level was high on admission ??UTox positive for barbiturates, benzodiazepines, opiates; though sample appears to be taken afterextubation - likely for medication contaminants -??Continue gabapentin, acamprosate and as needed hydroxyzine -??Continue paroxetine - Will provide patient with last dose letter. - Discuss at length with patient safe up-titration of methadone; her last fill was on 03/19 (neededto go yesterday for next fill), will have to go to the methadone clinic for further evaluation. Thesafe plan is to continue to increase 10 mg daily. ? Migraine (G43.909) Subarachnoid hemorrhage (I60.9): Initial CT scan of the head showing 3 to 4 mm SAH, repeat scan from last night showed resolution of SAH, ?possible artifact Per neurology no need for MRI or repeat imaging. - Follow up with PCP. - Emergency precautions discussed with the patient. - Continue home sumatriptan. ? Chronic pancreatitis (K86.1): - Continue home Pancrelipase ? Anxiety (F41.9): ??- Continue home paroxetine, trazodone and hydroxyzine ? Alcohol withdrawal (F10.939): Per patient she has been sober for years and had a relapse on 03/25, says she is not withdrawing from alcohol and wants to go home. She has capacity to make medical decisions. - Follow up with PCP ?? Cirrhosis (K74.60) Patient has an appointment with GI in April. ?? Objective Temperature?97.8 ?(11:28) Systolic Blood Pressure?119 ?(11:43) Diastolic Blood Pressure?92 ?(11:43) Pulse?106 ?(11:43) SpO2?92 ?(11:28) Respiratory Rate?18 ?(14:32) ?? . Physical Exam Constitutional:??Middle-aged female??in no acute??distress. Mental Status: Oriented to person, place and time. Head: Atraumatic/Normocephalic. Eyes: Pupils are equal, round and reactive to light. Extraocular muscles intact. Ear, Nose and Throat: Oropharynx clear, mucous membranes moist. Ears and nose without masses, lesions or deformities. Neck: Supple, Full range of motion. Respiratory: Clear to auscultation. No wheezing, rales or rhonchi. Cardiovascular: S1 S2 regular. No murmurs, rubs or gallops. Extremities: No peripheral edema. Gastrointestinal: Abdomen soft, non-tender, non-distended. Normal bowel sounds. Genitourinary: No costovertebral angle tenderness. Neurologic: Cranial nerves II-XII grossly intact. No focal neurological deficits. Moves all extremities spontaneously. Skin: No rashes or lesions. No petechiae or purpura.?? Musculoskeletal: No cyanosis or clubbing. No gross deformities. Normal range of motion. Psychiatric: Normal mood and affect Patient Education Titles Web[employer] Patient Education - The Impact of Alcohol Use Disorder?? [employer] Patient Education - Alcohol Abuse?? Follow-Up Appointments Added Follow Up ?Time Frame ?Comments Adebayo MARINELLI, Rebekah?1 to 2 weeks Patient Instructions Please follow up with your PCP within 1-2 weeks. Today you had 50 mg of methadone; please safely up-titrate dose per methadone clinic recommendations ideally increasing 10 mg or less per day.?? Highly encourage alcohol use cessation.?? Home Health Face to Face ^HomeHealthFTF Results Discharge Labs BLOOD COUNT & DIFF WBC 2.8 k/mm3 (Low)?? 03/27/2024 04:16 RBC 3.50 m/mm3 (Low)?? 03/27/2024 04:16 Hgb 10.1 Gm/dL (Low)?? 03/27/2024 04:16 Hct 30.9 % (Low)?? 03/27/2024 04:16 MCV 88.3 femtoliters ()?? 03/27/2024 04:16 MCH 28.9 pg ()?? 03/27/2024 04:16 MCHC 32.7 g/dL (Low)?? 03/27/2024 04:16 Platelet Count 72 k/mm3 (Low)?? 03/27/2024 04:16 RDW-SD 47.5 femtoliters (High)?? 03/27/2024 04:16 MPV 10.1 femtoliters ()?? 03/27/2024 04:16 Nucleated RBC (Automated) 0.0 #/100 WBC'S ()?? 03/27/2024 04:16 Abs. NRBC 0.0 k/mm3 ()?? 03/27/2024 04:16 Abs. Neut 1.3 k/mm3 ()?? 03/27/2024 04:16 Abs. Lymph 1.2 k/mm3 ()?? 03/27/2024 04:16 Abs. [place] 0.2 k/mm3 (Low)?? 03/27/2024 04:16 Abs. Eo 0.1 k/mm3 ()?? 03/27/2024 04:16 Abs. Baso 0.0 k/mm3 ()?? 03/27/2024 04:16 Neut % 47.4 % ()?? 03/27/2024 04:16 Lymph % 41.6 % ()?? 03/27/2024 04:16 [place] % 6.0 % ()?? 03/27/2024 04:16 Eos % 4.6 % ()?? 03/27/2024 04:16 Baso % 0.4 % ()?? 03/27/2024 04:16 Hemoglobin (POC) POC Cartridge 13.6 Gm/dL ()?? 03/25/2024 15:13 Hematocrit (POC) POC Cartridge 40 % ()?? 03/25/2024 15:13 Imm Gran 0.0 % ()?? 03/27/2024 04:16 Abs. Imm Gran 0.0 k/mm3 ()?? 03/27/2024 04:16 ?? BLOOD GAS pH Venous (POC) POC Cartridge 7.33 ()?? 03/25/2024 15:13 pCO2 Venous (POC) POC Cartridge 53.2 mm Hg (High)?? 03/25/2024 15:13 pO2 Venous (POC) POC Cartridge 29 mm Hg (Low)?? 03/25/2024 15:13 Est Bicarbonate (POC) POC Cartridge 28.3 mmol/L ()?? 03/25/2024 15:13 % O2 Sat Venous (POC) POC Cartridge 50 ()?? 03/25/2024 15:13 Base Excess (POC) POC Cartridge 2 ()?? 03/25/2024 15:13 pH 7.54 (High)?? 03/25/2024 15:58 pCO2 29 mm Hg (Low)?? 03/25/2024 15:58 pO2 77 mm Hg (Low)?? 03/25/2024 15:58 Bicarbonate, Estimated 24 mmol/L ()?? 03/25/2024 15:58 Specimen Type - Blood Gas ARTERIAL ()?? 03/25/2024 15:58 Percent O2 (FIO2) 50 ()?? 03/25/2024 15:58 ?? CHEM GENERAL Sodium 136 mmol/L ()?? 03/27/2024 04:16 Potassium 3.3 mmol/L (Low)?? 03/27/2024 04:16 Chloride 100 mmol/L ()?? 03/27/2024 04:16 Bicarbonate Level 27 mmol/L ()?? 03/27/2024 04:16 Anion Gap 9 ()?? 03/27/2024 04:16 Sodium (POC) POC Cartridge 146 mmol/L (High)?? 03/25/2024 15:13 Potassium (POC) POC Cartridge 3.6 mmol/L ()?? 03/25/2024 15:13 Glucose Level 113 mg/dL (High)?? 03/27/2024 04:16 Glucose (POC) POC Cartridge 105 (High)?? 03/25/2024 15:13 Glucose, POC 91 mg/dL ()?? 03/28/2024 11:53 BUN 7 mg/dL ()?? 03/27/2024 04:16 Creatinine-Blood 0.67 mg/dL ()?? 03/27/2024 04:16 Estimated GFR Creatinine 110 ML/MIN/1.73 M2 ()?? 03/27/2024 04:16 Calcium 8.8 mg/dL ()?? 03/27/2024 04:16 Calcium, Ionized pH Corrected 1.05 mmol/L (Low)?? 03/25/2024 15:08 Ionized Calcium (POC) POC Cartridge 1.07 mmol/L (Low)?? 03/25/2024 15:13 Phosphorus 3.7 mg/dL ()?? 03/27/2024 04:16 Magnesium 1.5 mg/dL (Low)?? 03/27/2024 04:16 Protein, Total 6.7 Gm/dL ()?? 03/27/2024 04:16 Albumin 3.3 Gm/dL (Low)?? 03/27/2024 04:16 AG Ratio 1.0 ()?? 03/27/2024 04:16 Alkaline Phosphatase 81 units/L ()?? 03/27/2024 04:16 AST (SGOT) 62 units/L (High)?? 03/27/2024 04:16 ALT (SGPT) 24 units/L ()?? 03/27/2024 04:16 Bilirubin, Total 1.9 mg/dL (High)?? 03/27/2024 04:16 Lactate 1.6 mmol/L ()?? 03/26/2024 05:56 ?? COAG INR 1.4 (High)?? 03/25/2024 21:55 Protime (PT) 14.7 seconds (High)?? 03/25/2024 21:55 ?? ENDOCRINE/TUMOR MARKER TSH 0.49 uIU/mL ()?? 03/25/2024 21:55 Blood <1 mIU/mL ()?? 03/25/2024 15:08 ?? HEME OTHER Hold Blue Top SPECIMEN DISCARDED AFTER 4 HOURS. ()?? 03/25/2024 15:08 ? MISC. CHEMISTRY Ammonia, Venous 52 ??mole/L (High)?? 03/25/2024 15:51 Hold Durham Top SPECIMEN DISCARDED AFTER 1 WEEK ()?? 03/25/2024 15:08 ?? TOXICOLOGY/TDM Ethanol, Serum or Plasma 298 mg/dL (Abnormal)?? 03/25/2024 15:08 Salicylate Level <0.3 mg/dL (Low)?? 03/25/2024 15:08 Barbiturate Screen, Urine POSITIVE (Abnormal)?? 03/25/2024 17:38 Cannabinoid Screen, Urine NONE DETECTED ()?? 03/25/2024 17:38 Cocaine Metabolite Screen, Urine NONE DETECTED ()?? 03/25/2024 17:38 Benzodiazepine Screen, Urine POSITIVE (Abnormal)?? 03/25/2024 17:38 Amphetamine Screen, Urine NONE DETECTED ()?? 03/25/2024 17:38 Opiate Screen, Urine POSITIVE (Abnormal)?? 03/25/2024 17:38 ?? UA/URINALYSIS Appear/Color, Urine YELLOW ()?? 03/25/2024 17:38 Specific Paron, Urine 1.015 ()?? 03/25/2024 17:38 pH, Urine 6.5 ()?? 03/25/2024 17:38 Albumin, Urine TRACE (Abnormal)?? 03/25/2024 17:38 Glucose, Urine NEGATIVE ()?? 03/25/2024 17:38 Ketones, Urine NEGATIVE ()?? 03/25/2024 17:38 Bilirubin, Urine NEGATIVE ()?? 03/25/2024 17:38 Hemoglobin, Urine NEGATIVE ()?? 03/25/2024 17:38 Nitrite, Urine NEGATIVE ()?? 03/25/2024 17:38 Leukocyte, Urine NEGATIVE ()?? 03/25/2024 17:38 Urobilinogen 6 mg/dL (Abnormal)?? 03/25/2024 17:38 WBC's, Urine <1 /HPF ()?? 03/25/2024 17:38 RBC's, Urine <1 /HPF ()?? 03/25/2024 17:38 Bacteria SLIGHT HPF (Abnormal)?? 03/25/2024 17:38 Squamous Epith <1 /HPF ()?? 03/25/2024 17:38 Amorphous Crystals SLIGHT /HPF ()?? 03/25/2024 17:38 Mucus SLIGHT /LPF ()?? 03/25/2024 17:38 Hold Urine Culture Testing available 48 hours from time of collection. ()?? 03/25/2024 17:38 ?? VIROLOGY COVID-19 by RT-PCR NEGATIVE ()?? 03/25/2024 17:38 ? Microbiology ?? COVID-19 (Novel Coronavirus), Rapid PCR?? Collected?? Source: Nasal Body Site: Nose Collected Dt/Tm: 03/25/2024 17:27 Last Updated Dt/Tm: 03/25/2024 17:27 ?Patient case and plan discussed with ??Teo?Graeme Krishnan MD ?Internal Medicine PGY-2 37 minutes spent on discharge * Geronimo PIMENTEL, Jerrica: PERFORM Event Display: Patient Education/Instruction Authored Date: [id number] Inpatient Adult Discharge Instructions. [address] [id number] Name: DAREN GOLD : 1980?? Visit: 03/25/2024 17:47?? Current Date: 03/28/2024 16:28 ?? Account: [id number]?? Inpatient Adult Discharge Instructions We would like [...] and their families. Surveys are administered by [employer] ?? If further treatment with your primary care physician or another doctor is recommended, it is important for you to keep the appointment. Call your primary care physician or return to the Emergency Department immediately if your condition worsens, fails to improve, or new symptoms develop. If you need to find a doctor, you can call [facility] Link for a referral at [phone] or toll free at [phone] or log in to [email or web address].. ?? [facility], in keeping with [facility] guidance, no longer requires face masks for [...] a health care amberly of your choosing. [employer] is a website that allows you to securely view your medical information including your hospital discharge summary, office visit summaries, medications and follow-up visits. You can also request appointments, renew medications, and request access to your medical information using a health care amberly of your choosing, or just ask a question. You can enroll at [email or web address] or register during your next office visit. You have been discharged from [facility], Patient Care Unit: [id number]??. If you have any questions regarding these instructions, including results of studies pending, afteryou leave, please call us and we will be happy to assist you 20/05. [facility] Your Care Team Attending Physician Helena Bruce DO?? Consulting Providers Helena Bruce DO?? Discharging Providers Graeme Krishnan MD Reason for Your Visit Obtunded requiring intubation after receiving ketamine for agitation?? Your Diagnosis Acute and chronic respiratory failure with hypercapnia Acute encephalopathy Alcohol dependence Alcohol withdrawal Alcohol withdrawal Altered mental status Anxiety Chronic pancreatitis Cirrhosis Cirrhosis with alcoholism General medical Migraine MANSOOR (obstructive sleep apnea) Polysubstance abuse Subarachnoid hemorrhage Tests Performed Below is a partial list of the tests performed during your hospitalization. You may have had other tests and procedures not included in this list. Please discuss all test results with your provider. Ammonia Venous AMPHETAMINE SCREEN, URINE Aspirin Level BARBITURATES SCREEN, URINE BASE EXCESS POC CARTRIDGE BENZODIAZEPINE SCREEN, URINE Blood Gas Arterial Calcium Ionized CALCIUM IONIZED POC CART CANNABINOID SCREEN, URINE CBC w/ Differential COCAINE SCREEN, URINE Comprehensive Metabolic Panel COVID-19 (NOVEL CORONAVIRUS), PCR Ethanol Level GLUCOSE POC GLUCOSE POC CARTRIDGE HEMATOCRIT POC CARTRIDGE HEMOGLOBIN POC CARTRIDGE HOLD BLUE TUBE HOLD DURHAM TUBE Lactate Level LACTIC ACID Lytes Magnesium Level OPIATES SCREEN, URINE Phosphorus Level POTASSIUM POC CARTRIDGE Serum Quantitative PROTIME PROFILE SODIUM POC CARTRIDGE TSH UA W/HOLD FOR CULTURE FOR [facility] ER ONLY VBG POC CARTRIDGE CT Head/Brain W/O Contrast CXR Portable Portable Chest Amphetamine Urine Screen?? Barbiturate Urine Screen?? Benzodiazepine Urine Screen?? CBC w/ Differential?? COVID-19 (Novel Coronavirus), Rapid PCR?? Cannabinoid Urine Screen?? Cocaine Urine Screen?? Comprehensive Metabolic Panel?? Hold Lavender Tube (BB)?? INR?? Lactic Acid Level (Lactate Level)?? Magnesium Level?? Opiate Screen Urine?? Phosphorus Level?? TSH?? Urinalysis w/hold for Urine Culture?? Primary Care Provider Rebekah Fiore MD? Advance Directive Health Care Proxy on File No Patient refuses to discuss Discharge Vitals Temperature: 97.8 DegF Weight: 86.2 kg Pulse Rate:??106 bpm??High ?? Respiratory Rate: 18 br/min ?? Systolic Blood Pressure: 119 mm Hg ?? Diastolic Blood Pressure:??92 mm Hg??High ?? Oxygen Saturation:??92 %??Low ?? Studies Pending All studies ordered during this hospital stay have been completed unless listed below. Please discuss all pending results with your provider listed above in these instructions. ?? Amphetamine Urine Screen?? Barbiturate Urine Screen?? Benzodiazepine Urine Screen?? CBC w/ Differential?? COVID-19 (Novel Coronavirus), Rapid PCR?? Cannabinoid Urine Screen?? Cocaine Urine Screen?? Comprehensive Metabolic Panel?? Hold Lavender Tube (BB)?? INR?? Lactic Acid Level (Lactate Level)?? Magnesium Level?? Opiate Screen Urine?? Phosphorus Level?? TSH?? Urinalysis w/hold for Urine Culture?? What to do next Instructions From Your Doctor Please follow up with your PCP within 1-2 weeks. Today you had 50 mg of methadone; please safely up-titrate dose per methadone clinic recommendations ideally increasing 10 mg or less per day.?? Highly encourage alcohol use cessation.? Orders? 03/28/24 16:05:00 EDT?? Scheduled Follow-Up Appointments Saturday 2:30 PM EDT ?? With: Vanessa Malik DO Where: [facility] [address] [place] [address]- Status: Pending You Need to Schedule the Following Appointments Follow Up with??Adebayo MARINELLI, Rebekah When:??Within 1 to 2 weeks Where: [address] [place] [address]- Discharge Medications DAREN GOLD :1980 Visit Date:03/25/2024 Medications: Please continue your medications until treatment is completed or stopped by your provider. Medications not listed below should be discontinued. Discuss any questions related to medications with your provider. What How Much When Instructions Next Dose Changed Albuterol (albuterol CFC free 90 mcg/ inh inhalation aerosol) 2 puff(s) Inhalation 4 times a day as needed for as needed for wheezing 03/29/24 9 am Changed Methadone (methadone 10 mg/ 5 mL oral solution) 25 Milliliter Oral Daily 03/29/24 9 am Unchanged Acamprosate (acamprosate 333 mg oral delayed release tablet) 666 Milligram Oral 3 times a day with meals 03/29/24 9 am Unchanged Gabapentin (gabapentin 600 mg oral tablet) 1 tab(s) Oral 3 times a day 03/29/24 9 am Unchanged HydrOXYzine (hydrOXYzine hydrochloride 25 mg oral tablet) 1 tab(s) Oral Twice a day as needed for anxiety 03/29/24 9 am Unchanged Lactulose (lactulose 10 gm/ 15 ml oral syrup) 15 Milliliter Oral Twice a day as needed for as needed for constipation 03/28/24 9 pm Unchanged Magnesium Oxide (magnesium oxide 500 mg oral capsule) 1 capsule Oral Daily 03/29/24 9 am Unchanged Multivitamin (Multivitamin Tablet) 1 tab(s) Oral Daily 03/29/24 9 am Unchanged Pancrelipase (Creon 36,000 units oral delayed release capsule) 1 capsule Oral 3 times a day 03/29/24 5 pm Unchanged Pantoprazole (pantoprazole 40 mg oral delayed release tablet) 1 tab(s) Oral Daily 03/29/24 9 am Unchanged Paroxetine (PARoxetine 20 mg oral tablet) 1 tab(s) Oral Daily 03/29/24 9 am Unchanged Polyethylene Glycol 3350 (polyethylene glycol 3350 oral powder for reconstitution) 17 gram Oral Daily dissolve in 4 to 8 oz of beverage ?? 03/29/24 9 am Unchanged Senna (senna 187 mg oral tablet) 1 tab(s) Oral Twice a day as needed for Constipation 03/29/24 9 pm Unchanged Sumatriptan (SUMAtriptan 50 mg oral tablet) 1 tab(s) Oral Daily as needed for for migraine headache may repeat dose after 2 hours up to a maximum of 2 ?? 03/29/24 PRN Unchanged Trazodone (traZODone 50 mg oral tablet) 1 tab(s) Oral Daily at Bedtime as needed for Sleep 03/28/24 9 pm Prescription Given During Visit No new medications prescribed at time of discharge.?? Laboratory Results Below is a partial list of the most recent Laboratory test results done prior to this discharge. You may have had other tests and procedures not included in this list. Please discuss all test resultswith your provider. Ammonia Venous (03/25/2024) ???Ammonia, Venous - 52 ??mole/L AMPHETAMINE SCREEN, URINE (03/25/2024) ???Amphetamine Screen, Urine - NONE DETECTED Aspirin Level (03/25/2024) ? ?Salicylate Level - <0.3 mg/dL BARBITURATES SCREEN, URINE (03/25/2024) ???Barbiturate Screen, Urine - POSITIVE BASE EXCESS POC CARTRIDGE (03/25/2024) ???Base Excess (POC) POC Cartridge - 2 BENZODIAZEPINE SCREEN, URINE (03/25/2024) ???Benzodiazepine Screen, Urine - POSITIVE Blood Gas Arterial (03/25/2024) ???pH - 7.54???pCO2 - 29 mm Hg???pO2 - 77 mm Hg???Bicarbonate, Estimated - 24 mmol/L???Specimen Type - Blood Gas - ARTERIAL???Percent O2 (FIO2) - 50 Calcium Ionized (03/25/2024) ???Calcium, Ionized pH Corrected - 1.05 mmol/L CALCIUM IONIZED POC CART (03/25/2024) ???Ionized Calcium (POC) POC Cartridge - 1.07 mmol/L CANNABINOID SCREEN, URINE (03/25/2024) ???Cannabinoid Screen, Urine - NONE DETECTED CBC w/ Differential (03/27/2024) ???WBC - 2.8 k/mm3???RBC - 3.50 m/mm3???Hgb - 10.1 Gm/dL???Hct - 30.9 %???MCV - 88.3 femtoliters???MCH - 28.9 pg???MCHC - 32.7 g/dL???Platelet Count - 72 k/mm3???RDW-SD - 47.5 femtoliters???MPV - 10.1 femtoliters???Nucleated RBC (Automated) - 0.0 #/100 WBC'S???Abs. NRBC - 0.0 k/mm3???Abs. Neut - 1.3 k/mm3???Abs. Lymph - 1.2 k/mm3???Abs. [place] - 0.2 k/mm3???Abs. Eo - 0.1 k/mm3???Abs. Baso - 0.0 k/mm3???Neut % - 47.4 %???Lymph % - 41.6 %???[place] % - 6.0 %???Eos % - 4.6 %???Baso % - 0.4 %???Imm Gran- 0.0 %???Abs. Imm Gran - 0.0 k/mm3 COCAINE SCREEN, URINE (03/25/2024) ???Cocaine Metabolite Screen, Urine - NONE DETECTED Comprehensive Metabolic Panel (03/27/2024) ???Sodium - 136 mmol/L???Potassium - 3.3 mmol/L???Chloride - 100 mmol/L???Bicarbonate Level - 27 mmol/L???Anion Gap - 9???Glucose Level - 113 mg/dL???BUN - 7 mg/dL???Creatinine-Blood - 0.67 mg/dL???Estimated GFR Creatinine - 110 ML/MIN/1.73 M2???Calcium - 8.8 mg/dL???Protein, Total - 6.7 Gm/dL???Alb umin - 3.3 Gm/dL???AG Ratio - 1.0???Alkaline Phosphatase - 81 units/L???AST (SGOT) - 62 units/L???ALT (SGPT) - 24 units/L???Bilirubin, Total - 1.9 mg/dL COVID-19 (NOVEL CORONAVIRUS), PCR (03/25/2024) ???COVID-19 by RT-PCR - NEGATIVE Ethanol Level (03/25/2024) ???Ethanol, Serum or Plasma - 298 mg/dL GLUCOSE POC (03/28/2024) ???Glucose, POC - 91 mg/dL GLUCOSE POC CARTRIDGE (03/25/2024) ???Glucose (POC) POC Cartridge - 105 HEMATOCRIT POC CARTRIDGE (03/25/2024) ???Hematocrit (POC) POC Cartridge - 40 % HEMOGLOBIN POC CARTRIDGE (03/25/2024) ???Hemoglobin (POC) POC Cartridge - 13.6 Gm/dL HOLD BLUE TUBE (03/25/2024) ???Hold Blue Top - SPECIMEN DISCARDED AFTER 4 HOURS. HOLD DURHAM TUBE (03/25/2024) ???Hold Durham Top - SPECIMEN DISCARDED AFTER 1 WEEK Lactate Level (03/26/2024) ???Lactate - 1.6 mmol/L LACTIC ACID (03/25/2024) ???Lactate - 2.6 mmol/L Lytes (03/26/2024) ???Sodium - 142 mmol/L???Potassium - 3.8 mmol/L???Chloride - 106 mmol/L???Bicarbonate Level - 27 mmol/L???Anion Gap - 9 Magnesium Level (03/27/2024) ???Magnesium - 1.5 mg/dL OPIATES SCREEN, URINE (03/25/2024) ???Opiate Screen, Urine - POSITIVE Phosphorus Level (03/27/2024) ???Phosphorus - 3.7 mg/dL POTASSIUM POC CARTRIDGE (03/25/2024) ???Potassium (POC) POC Cartridge - 3.6 mmol/L Serum Quantitative (03/25/2024) ? ?Blood - <1 mIU/mL PROTIME PROFILE (03/25/2024) ???INR - 1.4???Protime (PT) - 14.7 seconds SODIUM POC CARTRIDGE (03/25/2024) ???Sodium (POC) POC Cartridge - 146 mmol/L TSH (03/25/2024) ???TSH - 0.49 uIU/mL UA W/HOLD FOR CULTURE FOR [facility] ER ONLY (03/25/2024) ???Appear/Color, Urine - YELLOW???Specific Paron, Urine - 1.015???pH, Urine - 6.5???Albumin, Urine - TRACE???Glucose, Urine - NEGATIVE???Ketones, Urine - NEGATIVE???Bilirubin, Urine - NEGATIVE???Hemoglobin, Urine - NEGATIVE???Nitrite, Urine - NEGATIVE???Leukocyte, Urine - NEGATIVE???Urobilinogen - 6 mg/dL? ?WBC's, Urine - <1 /HPF? ?RBC's, Urine - <1 /HPF? ?Bacteria - SLIGHT? ?Squamous Epith - <1 /HPF? ?Amorphous Crystals - SLIGHT? ?Mucus - SLIGHT? ?Hold Urine Culture - Testing available 48 hours from time of collection. VBG POC CARTRIDGE (03/25/2024) ???pH Venous (POC) POC Cartridge - 7.33???pCO2 Venous (POC) POC Cartridge - 53.2 mm Hg???pO2 Venous(POC) POC Cartridge - 29 mm Hg???Est Bicarbonate (POC) POC Cartridge - 28.3 mmol/L???% O2 Sat Venous (POC) POC Cartridge - 50???Specimen Type - Blood Gas - VENOUS Allergies (NKA means No Known Allergies) Cats??(hives, [...] Discharge Instructions. [employer] Ign[employer] Patient Education - The Impact of Alcohol Use Disorder?? [employer] Ignite Patient Education - Alcohol Abuse?? Valuables and Belongings I fully understand and agree that [facility] accepts no responsibility for all my [...] Review of Valuable and Belonging List: With witness Date for Pt to Sign Valuables/Belongings: 03/27/24 14:13:00 ?? Other Discharge Information ? Pulmonary Rehab Status?? Pulmonary Rehab Discharge Status?? Respiratory Rate: 18 br/min PEEP: 5 ? Common Emergency Awareness Tips IS IT [...] are strongly encouraged to quit. Please call [facility] [employer] Link at [phone] or [phone] ([phone]) or log in to [email or web address] for referrals to smoking cessation programs. ?? 830 Suicide & Crisis Lifeline is available 20/05 if you or someone you know needs to find a reason to keep living. By calling 155 you'll be connected to a skilled, trained counselor at a crisis center in your area. INPATIENT DISCHARGE INSTRUCTIONS SIGNATURE DAREN GUARDADO Location:[facility] Registration Date and Time:03/25/2024 17:47 EDT Primary Care Physician: Rebekah Fiore MD, Attending Physician: Helena Bruce DO, I ASIF DAREN, have received the above patient education materials/instructions and have verbalized understanding. If ambulance or transport services are being used I further acknowledge being given a choice of service. ?? If you need to contact me, please call me at this number: . Patient/Monogram Operator Name: Patient/Monogram Operator Signature: Relationship to Patient: Witness Name/Signature: Date: * Graeme Krishnan MD: PERFORM Event Display: Patient Education Leaflets Authored Date: The Impact of Alcohol Use Disorder ?? 03621 The Impact of Alcohol Use Disorder Impact [...] community. ?? Last Reviewed Date: 2021 ?? [employer]. All rights reserved. This information is not intended as a substitute for professional medical care. Always follow your healthcare professional's instructions. ?? * Graeme Krishnan MD: PERFORM Event Display: Patient Education Leaflets Authored Date: [id number] Alcohol Abuse ?? [id number] Alcohol Abuse Alcoholic drinks harm you when you have too many of them. No set number of drinks means too much. Drinking that affects your life or your health is called alcohol abuse. Alcohol abuse can hurt your relationships with others. You may lose friends, a spouse, or even your job. You may be abusing alcohol if any of the following are true for you: ??? Duties at home or with children's program coordinator suffer because of drinking. ??? Duties at work or in school suffer because of drinking. ??? You have missed work or school because of drinking. ??? You use alcohol while driving or using machinery. ??? You have legal problems such as arrests because of drinking. ??? You keep drinking even though it causes serious problems in your life. Health problems Alcohol abuse causes many health problems.??Sometimes this can happen after only drinking a ???little. ??The effects depend on how much you drink at one time and how often you drink. The effects also depend on how long you drink. For example, months, years, or decades.??Alcohol affects all parts of your body Brain Alcohol affects the central nervous system. It can damage parts of the brain that control your balance and gait, memory, thinking, and emotions. It can cause: ??? Memory loss ??? Blackouts ??? Depression ??? Agitation ??? Sleep problems ??? Seizures These changes may be intermediate manager (permanent). Heart and blood vessels Alcohol can damage heart muscle (cardiomyopathy). This can lead to: ??? Trouble breathing ??? Irregular heartbeat ??? Atrial fibrillation ??? Leg swelling ??? Heart failure Alcohol also makes the blood vessels stiff. This causes high blood pressure. All of these problems raise your risk of having a heart attack or stroke. Liver Alcohol causes fat to build up in the liver. This affects how the liver works. Alcohol also raises the risk for hepatitis. It can cause: ??? Belly (abdominal) pain ??? Belly swelling ??? Loss of appetite ??? Yellowed eyes or skin (jaundice) ??? Bleeding problems ??? Cirrhosis This can make it harder for you to fight off infections. The liver changes keep it from removing toxins in your blood that can cause brain disease (encephalopathy). This condition cause: ??? Confusion ??? Changed level of consciousness ??? Personality changes ??? Memory loss ??? Seizures, coma, and The liver changes can also cause the veins in your esophagus and stomach to become thin and swollenwith blood (varices). This can cause bleeding and vomiting of blood. Pancreas Alcohol can cause swelling (inflammation) of the pancreas (pancreatitis). This can cause belly pain, fever, and diabetes. Immune system Alcohol weakens your immune system. This makes it harder for you to fight infections and colds. It also makes it more likely for you to get pneumonia and tuberculosis. Cancer Alcohol raises the risk for several types of cancer. These include cancer of the mouth, esophagus, pharynx, larynx, liver, and breast. Sexual function Alcohol can lead to sexual problems. ?? Home care These guidelines will help you deal with alcohol abuse: ??? Admit you have a problem with alcohol. ??? Ask for help from your healthcare provider. Also ask for help from trusted family members or close friends. ??? Get help from people trained in dealing with alcohol abuse. This may be one-on-one counseling or group therapy. Or it may be an alcohol treatment program. ??? Join a self-help group for alcohol abuse such as Alcoholics Anonymous. ??? Stay away from people who abuse alcohol or tempt you to drink. ?? Follow-up care Follow up with your healthcare provider, or as advised. Contact these groups to get help: ??? Alcoholics Anonymous (AA) at www.aa.org. Or check the phone book for meetings near you. ??? National Alcohol and Substance Abuse Information Center (NASAIC) at www.addictioncareHybrent.Instabug or 289-672-0489 ??? National [place] on Alcoholism and Drug Dependence (NCADD) at www.ncadd.org or 811-PQG-TFJP (232-056-2836) ?? Call 911 Call 911 if any of these occur: ??? Trouble breathing or slow, irregular breathing ??? Chest pain ??? Sudden weakness on one side of your body or sudden trouble speaking ??? Heavy bleeding or vomiting blood ??? Very drowsy or trouble awakening ??? Fainting or loss of consciousness ??? Rapid heart rate ??? Seizure ?? When to seek medical care Call your healthcare provider right away if any of these occur:? Confusion ??? Seeing, hearing, or feeling things that aren???t there (hallucinations) ??? Pain in your upper belly that gets worse ??? Vomiting that continues, vomiting with blood, or black or tarry stools ??? Severe shakiness ?? Last Reviewed Date: 2021 ?? [id number] [employer]. All rights reserved. This information is not intended as a substitute for professional medical care. Always follow your healthcare professional's instructions. ?? Patient Care team information Care Team Personnel Name: Melva Ochoa Position: S RN Member Role: Primary Care Nurse Name: Tiffanie Fall RN Position: S RN Member Role: Primary Care Nurse Name: Hazel Rivero MD Position: [facility] CHANGE CONSULTANT MD Member Role: [employer] CHANGE CONSULTANT Physician Address: Address: [address] [place] [address]'s [facility] [place] [address]- Name: Angela Almaguer RN Position: S RN Member Role: Primary Care Nurse Name: Rebekah Fiore MD Position: Reference Physician Member Role: PCP Address: Address: [address] [place] [id number]- Name: Digna Roque RN Position: S RN Member Role: Primary Care Nurse Name: Cynthia Steven RN Position: S RN Supv Member Role: Primary Care Nurse Name: Jerrica Melton RN Position: S RN Member Role: Primary Care Nurse Care Team Related Persons Name: JUAN RAMON GOLD Address: home [address] [place] [address] Name: OLGA PRINGLE Address: [address] [address] Name: NICK POON
--- OUTSIDE RECORDS SUMMARY | 2024-09-25 19:00 | XMS_ITS | Continuity of Care Document ---
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 Date(s): 11/10/23 - 11/10/[address] [address]- Encounter Diagnosis Cough(Final) - 11/10/23 Asthma exacerbation(Final) - 11/10/23 Discharge Disposition: A-D/C Home Attending Physician: Jacklyn Shelton MD Admitting Physician: Jacklyn Shelton MD Referring Physician: Not on Staff, Referring [...] 16:46:00 EST, Aerosol, Route to Pharmacy Electronically, [id number], [facility]/pharmacy #[id number], 162, cm, 11/10/23 13:45:00 EST, Hei... Start Date: 11/10/23 Status: Ordered Creon 36,000 units oral delayed release capsule 1 capsule, By Mouth, 3 times a day, 0 Refills, Maintenance, 10/03/23 5:21:00 EST, Partial fill uponpatient request if the prescription is for a schedule II opioid drug. Start Date: 10/03/23 Status: Ordered Creon 36,000 units oral delayed release capsule 1 capsule, By Mouth, 3 times a day, # 30 capsule, 0 Refills, Maintenance, 11/10/23 16:48:00 EST, [facility]/pharmacy #[id number], Partial fill upon patient request if the prescription is for a schedule II opioid drug., 1 capsule By Mouth 3 times a day, 162, cm, 01... Start Date: 11/10/23 Status: Ordered gabapentin 600 mg oral tablet 1 tablet = 600 mg, By Mouth, 3 times a day, # 270 tablet, 0 Refills, Maintenance, 10/02/23 18:53:00EST, Tablet, Partial fill upon patient request if the prescription is for a schedule II opioid drug. Start Date: 10/02/23 Status: Ordered lactulose 10 gm/15 ml oral syrup 15 mL = 10 Gm, By Mouth, 2 times a day, PRN as needed for constipation, # 480 mL, 0 Refills, Acute 11/15/23 16:47:00 EST, 11/10/23 16:47:00 EST, Syrup, [facility]/pharmacy #[id number], Partial fill upon patient request if the prescription is for a schedule II opio... Start Date: 11/10/23 Stop Date: 11/15/23 Status: Ordered pantoprazole 40 mg oral delayed [...] opioid drug. Start Date: 10/02/23 Status: Ordered predniSONE 20 mg oral tablet 2 tablet = 40 mg, By Mouth, Daily, for 4 days, # 8 tablet, 0 Refills, Acute 11/14/23 16:45:00 EST, 11/10/23 16:45:00 EST, Tablet, [facility] #[id number], Partial fill upon patient request if the prescription is for a schedule II opioid drug., 162, cm, ... Start Date: 11/10/23 Stop Date: 11/14/23 Status: Ordered Zithromax 250 mg oral tablet 1 pack/packet, By Mouth, Once, # 6 tablet, 0 Refills, Soft Stop, 11/02/23 6:27:00 EST, Tablet, [facility]/pharmacy #[id number], Partial fill upon patient request if the [...] Exam Date Time Procedure Performing Provider Status 11/10/23 4:03 PM Chest 2 Views Frontal and Lat Omaira Rouse; Auth (Verified) Notes: (Chest 2 Views Frontal and Lat) Reason For Exam: Shortness of Breath, Fever;Other: RESULT: Chest 2 Views Frontal and Lat Chest 2 Views Frontal and Lat Hx of Present Illness: Pt resides in [facility] [place], she was recently dx with bronchitis, still with cough, also states she has not had her creon medication and has been constipated for the past 6 wks; Reason: Other:; Shortness of Breath, Fever; Clinical Question(s): Pneumonia COMPARISON: 11/01/2023 FINDINGS: LINES AND TUBES: None. LUNGS AND PLEURA: Low lung volumes with mild basilar atelectasis. Lungs are otherwise clear with no consolidation. No pleural effusion. No pneumothorax. HEART, MEDIASTINUM AND STEVEN: Heart is at the upper limits of normal for size. Normal mediastinal and hilar contour. BONES AND SOFT TISSUES: No acute abnormality. IMPRESSION: No acute pathology. Low lung volumes with mild basilar atelectasis. Lungs are otherwise clear with no consolidation. Heart is at the upper limits of normal for size. WSN: [id number] Ordering Physician: Rosaura Lozoya Dictated By: Kennedy Massey MD Dictated Date/Time: 11/10/23 4:10 pm Reviewed By: Kennedy Massey MD Signed By: Kennedy Massey MD Signed Date/Time: 11/10/23 4:10 pm Transcribed By: CSRobina Transcribed Date/Time: 11/10/23 4:09 pm * Exam Date Time Procedure Performing Provider Status 11/10/23 3:[address] Abd/Pelvis W/ IV + Oral Contrast Omaira Rouse; Auth (Verified) Notes: (CT Abd/Pelvis W/ IV + Oral Contrast) Reason For Exam: RLQ abdominal pain;Other: RESULT: CT Abd/Pelvis W/ IV + Oral Contrast CT Abd/Pelvis W/ IV + Oral Contrast Hx of Present Illness: Pt resides in [facility] [place], she was recently dx with bronchitis, still with cough, also states she has not had her creon medication and has been constipated for the past 6 wks; Reason: Other:; RLQ abdominal pain; Clinical Question(s): Obstruction TECHNIQUE: Spiral CT through the abdomen and pelvis with IV contrast formatted in 3 planes. 100 cc of Omnipaque 300 was administered intravenously. This study was performed with oral contrast. Weight-based protocol using automatic tube modulation was used to optimize exposure parameters. COMPARISON: 10/14/2023 CT. 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 Visualized Chest: Lung bases are clear. No pleural effusion. The heart is normal in size. No pericardial effusion. Diaphragm: Normal. Liver: Unchanged cirrhotic configuration of the liver with micronodularity of the liver surface. Nosuspicious focal lesion. Gallbladder: Surgically absent. Bile ducts: No biliary ductal dilation. Spleen: Splenomegaly, spleen measuring 16.7 cm. Pancreas: Atrophic. No mass or pancreatic ductal dilatation. Adrenal glands: Normal. Kidneys and ureters: No hydronephrosis, stones, or suspicious masses. Bladder: Normal. Reproductive organs: No pelvic mass. Stomach, small bowel, and large bowel: Normal caliber. Moderate to large amount of colonic stool. No bowel wall thickening. No bowel obstruction. Normal small bowel, portions of the small bowel opacified with ingested contrast. Appendix: No evidence of acute appendicitis. Peritoneum and retroperitoneum: No ascites or pneumoperitoneum. No omental or mesenteric lesions. Lymph nodes: Mildly enlarged paraceliac and gastrohepatic lymph nodes. Blood vessels: Mild vascular calcifications but no aneurysm. No evidence of venous thrombosis. Abdominal and pelvic wall: Unremarkable. Bones: No acute abnormality. IMPRESSION: No mechanical bowel obstruction. Moderate to large amount of colonic stool. Cirrhosis with splenomegaly and mildly enlarged reactive upper abdominal lymph nodes. WSN: [id number] Ordering Physician: Rosaura Lozoya Dictated By: Liv Dotson MD Dictated Date/Time: 11/10/23 4:05 pm Reviewed By: Liv Dotson MD Signed By: Liv Dotson MD Signed Date/Time: 11/10/23 4:05 pm Transcribed By: DAMI Transcribed Date/Time: 11/10/23 3:58 pm Vital Signs Most recent to oldest [Reference Range]: 1 2 Height 162 cm (11/10/23 1:45 PM) 162 cm (11/10/23 1:43 PM) Weight 90 kg (11/10/23 1:45 PM) 90 kg (11/10/23 1:43 PM) Oxygen Saturation [94-100 %] 97 % (11/10/23 4:00 PM) 97 % (11/10/23 1:43 PM) Pulse Rate [55-90 bpm] 89 bpm (11/10/23 4:00 PM) 92 bpm *H* (11/10/23 1:43 PM) Body Mass Index [18.5-24.99 kg/m2] 34.29 kg/m2 *>HHI* (11/10/23 1:43 PM) Blood Pressure [90-138/55-84 mm Hg] 132/ 76mm Hg (11/10/23 4:00 PM) 129/77mm Hg (11/10/23 1:43 PM) Respiratory Rate [16-30 br/min] 18 br/mi n (11/10/23 4:00 PM) 18 br/min (11/10/23 1:43 PM) Temperature [96.8-100.4 DegF] 97.5 DegF (11/10/23 1:43 PM) Mode of Delivery (Oxygen) Room air (11/10/23 4:00 PM) Room air (11/10/23 1:43 PM) Blood pressure sites Arm, left (11/10/23 4:00 PM) Arm, left (11/10/23 1:43 PM) Temperature Route Temporal (11/10/23 1:43 PM) Dry Weight 90 kg (11/10/23 1:45 PM) 90 kg (11/10/23 1:43 PM) Weight Obtained Via Patient/family state d (11/10/23 1:43 PM) Dry Weight Obtained Via Patient/family s tated (11/10/23 1:43 PM) Social History Social History Type Response Smoking Status Current every day dora oker; Type: Cigarettes; Other: 1 pack a week; entered on: 02/03/18 Sex Note * Nikita MARINELLI, Jacklyn Ha: PERFORM Event Display: Patient Education Leaflets Authored Date: [id number] Constipation (Adult) ?? [id number] Constipation (Adult) Constipation means that you have bowel movements that are less frequent than usual. Stools often become very hard and difficult to pass. Constipation is very common. At some point in life, it affects almost everyone. Since everyone's bowel habits are different, what is constipation to one person may not be to another. Your healthcare provider may do tests to diagnose constipation. It depends on what??they??find when evaluating you. Symptoms of constipation include: ??? Abdominal pain ??? Bloating ??? Vomiting ??? Painful bowel movements ??? Itching, swelling, bleeding, or pain around the anus Causes Constipation can have many causes. These include: ??? Diet low in fiber ??? Too much dairy ??? Not drinking enough liquids ??? Lack of exercise or physical activity (especially true for older adults)??? Changes in lifestyle or daily routine, including , aging, work, and travel ??? Frequent use or misuse of laxatives ??? Ignoring the urge to have a bowel movement or delaying it until later ??? Medicines, such as certain prescription pain medicines, iron supplements, antacids, certain antidepressants, and calcium supplements ??? Diseases like irritable bowel syndrome, bowel obstructions, stroke, diabetes, thyroid disease, Parkinson disease, hemorrhoids, and colon cancer ?? Complications Possible complications of constipation can include: ??? Hemorrhoids ??? Rectal bleeding from hemorrhoids or anal fissures??(skin tears) ??? Hernias ??? Chronic constipation ??? Fecal impaction, a severe form of constipation in which a large amount of hard stool is in your rectum that you can't pass??? Bowel obstruction or perforation ?? Home care All treatment should be done after talking with your healthcare provider. This is especially true if you have another medical problem, are taking prescription medicines, or are an older adult. Treatment most often involves lifestyle changes. You may also need medicines. Your healthcare provider will tell you which will work best for you. Follow the advice below to help avoid this problem in the future. ?? Lifestyle changes These lifestyle changes can help prevent constipation: ??? Diet. Eat a high- fiber diet, with fresh fruit and vegetables, and reduce dairy intake, meats, and processed foods ??? Fluids. It's importantto get enough fluids each day. Drink plenty of water when you eat more fiber. If you are on diet that limits the amount of fluid you can have, talk about this with your healthcare provider. ??? Regular exercise. Check with your healthcare provider first. ?? Medicines Take any medicines as directed. Some laxatives are safe to use only every now and then. Others can be taken on a regular basis. While laxatives don't cause bowel dependence, they are treating the symptoms. So your constipation may return if you don't make other changes. Talk with your healthcare provider or pharmacist if you have questions. Prescription pain medicines can cause constipation. If you are taking this kind of medicine, ask your healthcare provider if you should also take a stool softener. Medicines you may take to treat constipation include: ??? Fiber supplements ??? Stool softeners ???Laxatives ??? Enemas ??? Rectal suppositories ?? Follow-up care Follow up with your healthcare provider if symptoms don't get better in the next few days. You may need to have more tests or see a specialist. ?? Call 911 Call 911 if any of these occur: ??? Trouble breathing ??? Stiff, rigid abdomen that is severely painful to touch ??? Large amount of blood in the stool ??? Confusion ??? Fainting or loss of consciousness ??? Rapid heart rate ??? Chest pain ?? When to seek medical advice Call your healthcare provider right away if any of these occur: ??? Fever of 100.4??F (38??C) or higher, or as directed by your healthcare provider ??? Failure to resume normal bowel movements ??? Pain in your abdomen or back gets worse ??? Nausea or vomiting ??? Swelling in your abdomen ??? Small amount of blood in the stool ??? Black, tarry stool ??? Involuntary weight loss ??? Weakness ?? Last Reviewed Date: 2021 ?? [employer]. All rights reserved. This information is not intended as a substitute for professional medical care. Always follow your healthcare professional's instructions. ?? * Nikita MARINELLI, Jacklyn Ha: PERFORM Event Display: Patient Education Leaflets Authored Date: [id number] Asthma (Adult) ?? [id number] Asthma (Adult) Asthma is a disease where the medium and??small air passages in the lung go into spasm. This limitsair flow. Inflammation and swelling of the airways cause more blockage. During an acute asthma attack, these things cause trouble breathing, wheezing, coughing, and chest tightness. An asthma attack can be triggered by many things. Common triggers include infections such as the common cold, bronchitis, and pneumonia. Irritants such as smoke or pollutants in the air, very cold air, strong emotions, and exercise can also trigger an attack. In??many adults with asthma, allergies to??dust, mold, pollen, and animal dander can cause an asthma attack. Skipping doses of daily asthmamedicine can also bring on an asthma attack. Asthma can be controlled using the??correct medicines prescribed by your healthcare provider. You can also control it by staying away from known triggers including allergens and irritants. Home care ??? Take prescribed medicine exactly as advised. Ask your healthcare team for help if youhave questions about how to use your inhaler or nebulizer. ??? Call your provider or get medical care right away if you need quick-relief medicine such as from an inhaler or aerosol breathing machine(nebulizer) more often than prescribed.. ??? If you are prescribed an antibiotic or the steroid prednisone, take all of the medicine as prescribed. Keep taking it even if you are feeling better aftera few days. ??? Don't smoke. Ask your provider for resource, such as organizations and websites to help you quit. Stay away from the smoke of others. Don't let anyone smoke in your home, in your car,or around you. Also don't use e-cigarettes. ??? Some people with asthma find their symptoms get worse when they take aspirin and nonsteroidal anti-inflammatory drugs (NSAIDs) or fever-reducing medicines such as ibuprofen and naproxen. Talk with your provider if you think this may apply to you. ??? Stay away from your asthma triggers. ?? Follow-up care Follow up with your healthcare provider, or as advised. Always bring all of your current medicines to any appointments with your provider. Also bring a complete list of medicines, even??those you take for other conditions. Bring your Asthma Action Plan to all appointments. If you don't have one, talk with your provider about making your own Asthma Action Plan. Get the COVID-19 vaccine, pneumonia (pneumococcal)??vaccine, and yearly flu shot (every fall). Ask your provider about this. ?? When to get medical care Call your healthcare provider right away if any of these occur:? More wheezing or shortness ofbreath ??? Waking up at night because of asthma symptoms ??? Need to use your quick-relief inhaler more often than normal without relief ??? Fever of 100.4??F (38??C) or higher, or as advised by yourprovider ??? Coughing up lots of dark-colored or bloody sputum (mucus) ??? Chest pain with each breath ??? If you use a peak flow meter as part of an Asthma Action Plan, and you are still in the yellow zone (50% to 79% of personal best) 15 minutes after using quick-relief inhaler medicine. ?? Call 911 Call 911 right away if any of these occur: ??? Trouble walking or talking because you're short of breath ??? If you use a peak flow meter as part of an Asthma Action Plan, and??you are still in the red zone (less than 50% of personal best) 15 minutes after using quick-relief inhaler medicine ??? Lips or fingernails turn gilbert, purple, or blue ??? Feeling faint or loss of consciousness ?? Last Reviewed Date: 2022 ?? [id number] [employer]. All rights reserved. This information is not intended as a substitute for professional medical care. Always follow your healthcare professional's instructions. ?? Patient Care team information Care Team Personnel Name: Hazel Rivero MD Position: [facility] PUNCH CARD OPERATOR MD Member Role: Lifetime PUNCH CARD OPERATOR Physician Address: Address: [address] [place] [address]- Name: Tony Tanner MD Position: [facility] Outreach Member Role: PCP Address: Address: [address] [place] [id number]- Name: Jacklyn Shelton MD Position: [facility] ED Medicine MD Member Role: Admitting Physician Address: [facility] [address] [facility] [place] [address]- Name: Mandy Hanna RN Position: [facility] ED RN W/OE and Tasks Member Role: Patient Care Provider Care Team Related Persons Name: JUAN RAMON GOLD Address: home [address] [place] [address] Name: OLGA PRINGLE Address: [address] [address]
--- OUTSIDE RECORDS SUMMARY | 2024-09-25 19:01 | XMS_ITS | Continuity of Care Document ---
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 Start Date: 05/03/24 Status: Ordered albuterol CFC free 90 mcg/inh inhalation aerosol 2, puffs, Inhalation, 4 times a day, PRN, # 6.7 Gm, Refills 0, Tot. Refills 0, Maintenance, 11/10/23 16:46:00 EST, Aerosol, Route to Pharmacy Electronically, [id number], [facility]/pharmacy #[id number], 162, cm, 11/10/23 13:45:00 EST, Hei... Start Date: 11/10/23 Status: Ordered Creon 36,000 units oral delayed release capsule 1 capsule, By Mouth, 3 times a day, # 90 capsule, 0 Refills, Maintenance, 05/03/24 10:34:00 EDT, [facility], Partial fill upon patient request if the prescription is for a schedule II opioid drug., 1 capsule By Mouth 3 times a day, 163,... Start Date: 05/03/24 Status: Ordered cyclopentolate 1% ophthalmic solution 1 drops, Eye, Right, 3 times a day, # 5 mL, 0 Refills, Maintenance, 05/27/24 9:45:00 EDT, Ophth Solution, [facility], Partial fill upon patient request [...] 05/30/24 9:52:00 EDT, 05/27/24 9:52:00 EDT, Tablet, [facility], Partial fill upon patient request if the prescription is for a schedule II opio... Start Date: 05/27/24 Stop Date: 05/30/24 Status: Ordered Dilaudid 2 mg oral tablet 2 mg, Tablet, By Mouth, Every 4 hours, PRN for Pain , Severe, Routine, 05/26/24 15:01:00 EDT Start Date: 05/26/24 Stop Date: 05/27/24 Status: Discontinued ferrous sulfate 325 mg oral enteric coated tablet 325 mg, By Mouth, Daily, # 30 each, Refills 0, Tot. Refills 0, Maintenance, 05/03/24 10:34:00 EDT, Route to Pharmacy Electronically, [facility], Partial fill upon patient request if [...] opioid drug. Start Date: 03/28/24 Status: Ordered Methadone Liquid 150 mg, Solution, By Mouth, 05/27/24 9:00:00 EDT Start Date: 05/27/24 Stop Date: 05/27/24 Status: Completed moxifloxacin 0.5% ophthalmic solution 1 drops, Eye, Right, Every 4 hours, for 3 days, # 3 mL, 0 Refills, Acute 05/30/24 9:46:00 EDT, 05/27/24 9:46:00 EDT, Ophth Solution, [facility], Partial fill upon patient request if [...] 0 Refills, Maintenance, 05/27/24 9:47:00 EDT, Tablet, [facility] 3, Partial fill upon patient request if [...] Refills, Maintenance, 05/03/24 10:33:00 EDT, REC Powder, [facility], Partial fill upo... Start Date: [...] Exam Date Time Procedure Performing Provider Status 05/23/24 2:49 AM MRI Abdomen W+W/O Contrast Abby Klein; Auth (Verified) Notes: (MRI Abdomen W+W/O Contrast) Reason For Exam: numerous hepatic lesions, abdominal pain, vomiting;Mass RESULT: MRI Abdomen W+W/O Contrast MRI Abdomen W+W/O Contrast CLINICAL INDICATION: Reason: Mass; numerous hepatic lesions, abdominal pain, vomiting; Clinical Question(s): Tumor Primary; Order Comment: Please see Reference Text for complete list of contraindications Tumor Primary TECHNIQUE: Multiplanar, multisequence pre and post contrast MRI evaluation of the abdomen was performed. 18 cc of Clariscan was administered intravenously. COMPARISON: Prior studies, most recently CT of the abdomen and pelvis from May 21, 2024, and MRI of the abdomen dated April 24, 2024. FINDINGS: LOWER THORAX: No pleural or pericardial effusion. Top normal heart size. LIVER: Hepatomegaly with severe hepatic steatosis with estimated fat fraction of 30%. Mildly nodular hepatic contour. Innumerable hepatic lesions with similar imaging characteristics, appearing mildly T2 and T1 hyperintense, with drop in signal intensity on fat-saturated sequences. These enhance less than the background parenchyma on all sequences and demonstrates drop in signal intensity on opposed phase imaging, features compatible with nodular distribution of focal fat deposition. No definite enhancing lesion or lesion is clearly different from background. Changes appear similar to prior MRI from March 2024, possibly slightly more pronounced GALLBLADDER: Surgically absent. BILE DUCTS: No biliary ductal dilatation. SPLEEN: Splenomegaly measuring up to 18 cm in greatest craniocaudal extent and 14.8 cm in greatest axial extent, previously 18.5 x 13.9, not significantly changed. PANCREAS: Very poorly evaluated due to artifact without clear ductal dilatation or suspicious lesion. ADRENAL GLANDS: No nodules. KIDNEYS: No hydronephrosis. Kidneys enhance symmetrically. No suspicious mass. STOMACH/UPPER GI TRACT: Stomach and visualized abdominal bowel normal in caliber. Small type I hiatal hernia. PERITONEUM AND RETROPERITONEUM: No loculated fluid collection or peritoneal mass. LYMPH NODES: No lymphadenopathy. VESSELS: Abdominal aorta is nonaneurysmal. Hepatic, portal and splenic veins patent. Visualized inferior vena cava unremarkable. ABDOMINAL WALL: Mild edema in the dependent lower back. BONES: Unremarkable. IMPRESSION: 1. Severe hepatic steatosis with nodular focal fat deposition throughout the liver, minimally more conspicuous from prior MRI with slight worsening of background fat fraction. No discrete suspicious enhancing observation. 2. Mildly nodular hepatic contour, severe splenomegaly, and varices are compatible with cirrhosis and portal hypertension. WSN: [id number] Ordering Physician: Marc Da Silva Dictated By: Jerry Mitchell MD Dictated Date/Time: 05/23/24 9:04 am Reviewed By: Jerry Mitchell MD Signed By: Jerry Mitchell MD Signed Date/Time: 05/23/24 9:04 am Transcribed By: DAMI Transcribed Date/Time: 05/23/24 8:51 am * Exam Date Time Procedure Performing Provider Status 05/21/24 6:[address] Abd/Pelvis W/ IV Contrast Only Lashae Chiang; Mitul (Verified) Notes: (CT Abd/Pelvis W/ IV Contrast Only) Reason For Exam: epigastric pain;Other: RESULT: CT Abd/Pelvis W/ IV Contrast Only CT Abd/Pelvis W/ IV Contrast Only Hx of Present Illness: Epigastric pain; Clinical Question(s): Pancreatitis; TECHNIQUE: Spiral CT through the abdomen and pelvis with IV contrast formatted in 3 planes. 100 cc of Omnipaque 300 was administered intravenously. This study was performed without oral contrast. Weight-based protocol using automatic tube modulation was used to optimize exposure parameters. CTDIvol Body: 19.00 mGy, DLP Body: 1007 mGy*cm. COMPARISON: Multiple prior CTs, most recently 08/02/2024 and MRI abdomen 04/24/2024. 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 Visualized Chest: Lung bases are clear. No pleural effusion. The heart is normal in size. No pericardial effusion. Diaphragm: Normal. Liver: Innumerable hypodensities throughout the hepatic parenchyma the largest measures up to 3.3 cm in the right hepatic lobe, slightly increased in size compared to prior where it measured up to 3.0 cm. Nodular liver contour and moderate hepatomegaly is unchanged. Gallbladder: Absent consistent with prior cholecystectomy. Bile ducts: The common bile duct is mildly dilated measuring up to 8 mm, related to reservoir effect following cholecystectomy. Spleen: Splenomegaly is unchanged. Pancreas: Normal. No peripancreatic fat stranding or fluid collections. Adrenal glands: Normal. Kidneys and ureters: No hydronephrosis, stones, or suspicious masses. Bladder: Normal. Reproductive organs: Unremarkable. Stomach, small bowel, and large bowel: Tiny hiatal hernia. The stomach, small bowel and large bowelare normal in caliber. No evidence of bowel obstruction. No abnormal bowel wall thickening or surrounding fat stranding to suggest acute inflammatory process of the bowel. Appendix: Normal. Peritoneum and retroperitoneum: No ascites or pneumoperitoneum. No omental or mesenteric lesions. Mild haziness of the mesenteric fat in the mid upper abdomen is unchanged and nonspecific (image 42 series 201). Lymph nodes: No enlarged lymph nodes. Blood vessels: Normal. No aneurysm. No evidence of venous thrombosis. Prominent esophageal varices.Varicose splenic vein. Abdominal and pelvic wall: Unremarkable. Bones: No acute abnormality. IMPRESSION: Chronic stranding at the root of the mesentery of indeterminate etiology. Cirrhotic liver with diffuse hypodensities which are slightly increased in size and sequelae of portal hypertension. Detailed evaluation is discussed with MRI. I have personally reviewed the images and I agree with this report. WSN: [id number] Ordering Physician: Bhavin Gan Dictated By: Valerie May MD Dictated Date/Time: 05/21/24 7:07 pm Reviewed By: Brandon Livingston MD Signed By: Brandon Livingston MD Signed Date/Time: 05/21/24 7:12 pm Transcribed By: DAMI Transcribed Date/Time: 05/21/24 6:46 pm Vital Signs Most recent to oldest [Reference Range]: 1 2 3 4 Height 162 cm (05/27/24 11:03 AM) 162 cm (05/27/24 8:02 AM) 162 cm (05/27/24 2:39 AM) Weight 85.1 kg (05/22/24 3:01 AM) Oxygen Saturation [94-100 %] 92 % *L* (05/27/24 11:03 AM) 94 % (05/27/24 8:02 AM) 96 % (05/27/24 2:39 AM) Pulse Rate [55-90 bpm] 70 bpm (05/27/24 11:03 AM) 57 bpm (05/27/24 8:02 AM) 63 bpm (05/27/24 2:39 AM) 63 bpm (05/27/24 2:39 AM) Body Mass Index [18.5-24.99 kg/m2] 32.43 kg/m2 *>HHI* (05/22/24 3:01 AM) Blood Pressure [90-138/55-84 mm Hg] 104/53mm Hg (05/27/24 11:03 AM) 102/57mm Hg (05/27/24 8:02 AM) 114/70mm Hg (05/27/24 2:39 AM) 114/70mm Hg (05/27/24 2:39 AM) Respiratory Rate [16-30 br/min] 16 br/min (05/27/24 11:03 AM) 15 br/min *L* (05/27/24 10:47 AM) 17 br/min (05/27/24 10:16 AM) Temperature [96.8-100.4 DegF] 97.7 DegF (05/27/24 11:03 AM) 97.4 DegF (05/27/24 8:02 AM) 98.5 DegF (05/27/24 2:39 AM) Liters per Minute 2 L/min (05/22/24 4:00 AM) Mode of Delivery (Oxygen) Room air (05/27/24 11:03 AM) Room air (05/27/24 8:02 AM) Nasal cannula (05/27/24 2:39 AM) Blood pressure sites Arm, left (05/27/24 11:03 AM) Arm, right (05/27/24 8:02 AM) Arm, right (05/27/24 2:39 AM) Temperature Route Oral (05/27/24 11:03 AM) Oral (05/27/24 8:02 AM) Oral (05/27/24 2:39 AM) Dry Weight 85.1 kg (05/22/24 3:01 AM) Weight Obtained Via Bed scale (05/22/24 3:01 AM) Social History Social History Type Response Smoking Status Former smoker, quit more than 30 days ago entered on: 03/10/24 Sex Admission evaluation note * Avinash MARINELLI, Marc Carrizales: PERFORM Event Display: Admission Note Authored Date: [id number] Patient: ??DAREN FITZGERALD ? Age:??44 Years?Sex:??Female?:??1980?? Chief Complaint/Reason for Consultation pt BIBA from home, with c/o abd pain, N/V/ dizziness x 2 weeks. Pt arrives pale an ddiaphoretic, HXpancreatitis and cirrohsis last drink 2 days ago History of Present Illness Ms. Fitzgerald is a 44-year-old female with history of pancreatitis, alcohol use disorder, opiate use disorder on methadone, alcoholic liver cirrhosis presenting to the emergency department for 2 weeks ofabdominal pain and vomiting with associated right vision loss. ?? Patient reports that she has been having abdominal pain and vomiting similar to prior pancreatitis episode for the past 2 weeks.?? States that she vomited so hard that she lost vision in her right eye, is sensitive to light but cannot see much including number of fingers held in front of her face.?? States that this has happened in the past but has not been this bad, to the point where her right eye appears red all over and affected her vision so much.?? States that because of her lack of sleepand vomiting she does not know/has lost track of days does not know last time she had a drink, thinks he may have been the day prior to admission.?? Currently denies chest pain, nausea, diarrhea, fever, chills, dyspnea. ?? On arrival to the ER hemodynamically stable.?? Labs show WBC 2.5, unremarkable CBC, potassium 2.6, magnesium 0.9, ionized calcium 0.92, phosphorus 2.4, AST 105, ALT 39, total bilirubin 2.2, lactate 5.5 with repeat 4.5.?? She had multiple episodes of NSVT and cardiology was consulted, thought to be secondary to electrolyte abnormality, recommended aggressive electrolyte repletion.?? CT abdomen shows chronic stranding anterior mesentery of indeterminate etiology, cirrhotic liver changes with diffuse hypodensities that are increased in size and ??portal hypertension.?? She was given IV fluidswith improvement in lactate.?? Electrolytes were repleted.?? No further arrhythmias on telemetry.??She was started on IV fluids, given opioids for pain control. Review of Systems All systems reviewed and negative except as indicated in HPI. Objective Vital Signs?? Temperature: 98.5 DegF (05/22/24 04:00:00) Temperature Route: Oral (05/22/24 04:00:00) Pulse Rate:??91 bpm??High (05/22/24 04:00:00) Heart Rate Monitored: 87 bpm (05/22/24 06:00:00) Respiratory Rate:??14 br/min??Low (05/22/24 06:00:00) Vented: No (05/22/24 06:00:00) Systolic Blood Pressure: 108 mm Hg (05/22/24 06:00:00) Diastolic Blood Pressure: 72 mm Hg (05/22/24 06:00:00) Blood pressure sites: Arm, right (05/22/24 06:00:00) Mean Arterial Pressure: 85 mm Hg (05/22/24 03:01:00) Pulse Pressure: 36 mm Hg (05/22/24 06:00:00) Oxygen Saturation: 97 % (05/22/24 06:00:00) Liters per Minute: 2 L/min (05/22/24 04:00:00) Mode of Delivery (Oxygen): Nasal cannula (05/22/24 04:00:00) Early Warning Score:??13??Critical (05/22/24 06:40:13) ? Intake/Output? 05/21 20:35 05/22 07:00 05/21 07:00 05/20 07:00 05/19 07:00 ?? 05/22 06:45 05/22 06:45 05/22 06:59 05/21 06:59 05/20 06:59 Intake ?500 ?0 ?500 ?0 ?0 Output ? 1200 ?0 ? 1200 ?0 ?0 Net Total ? -700 ?0 ? -700 ?0 ?0 ? Physical Exam Constitutional: Alert, in no acute distress. Head EENT: Extraocular muscle movement intact.??Moist mucous membranes.??Left eye normal vision, right eye??sensitive to light but??limited visual acuity otherwise, red eye??consistent with subconj hemorrhage. Neck: Supple. No JVD. Respiratory: Clear to auscultation. No wheezing or crackles. No use of accessory muscles. Cardiovascular: S1S2 regular. No murmurs, rubs or gallops. Gastrointestinal: Abdomen soft, epigastric??tender, non-distended. Normal bowel sounds. Genitourinary: No CVA tenderness. Extremities: No lower extremity pitting??edema. No cyanosis or clubbing. Neurologic: AAOx3, Speech normal. No focal neurological deficits. Skin: No rash. Psychiatric: Anxious mood and affect Assessment/Plan 44-year-old female with history of pancreatitis, alcohol use disorder, opiate use disorder on methadone, alcoholic liver cirrhosis presenting to the emergency department for 2 weeks of abdominal painand vomiting with associated right vision loss. ?? Vomiting (R11.10) ?Grouped with??Hypomagnesemia (E83.42),??Hypokalemia (E87.6),??NSVT (nonsustained ventricular tachycardia) (I47.29),??Lactic acid acidosis (E87.20) ? Patient presented with 2 weeks of??persistent vomiting, history of pancreatitis,??and alcohol use disorder Labs showed significant electrolyte abnormalities including hypokalemia, hypomagnesemia, hypocalcemia Developed multiple runs of NSVT Improved with electrolyte repletion, single dose of??150 mg amiodarone bolus ??? Imaging shows??numerous hepatic??hypodensities, chronic stranding anterior mesentery of indeterminate etiology, ??? Ordered MRI??abdomen??for further evaluation ??? Per cardiology will hold off on further amiodarone ??? Aggressive electrolyte repletion ?Goal magnesium greater than 2.5, goal??potassium greater than 4 ?Zofran as needed ??? Pain control ?? Conjunctival hemorrhage of right eye (H11.31):? In setting of vomiting Associated with vision loss - consult ophtho in AM given vision loss - artificial tears ?? Alcohol withdrawal (F10.939):? CIWA Ativan PRN thiamine, folate, multivitamin ?? Code status: full DVT ppx:??lovenox Diet: regular Dispo: floors ?? Total Visit Time: I personally spent a total of 80 minutes, including both qqug-iv-chwj and trn-owth-lc-face time on the date of the encounter, addressing the above diagnoses. Activities performed in this time include chart review, obtaining / reviewing history, performing amedically necessary evaluation, documentation and counseling. ?? Marc Da Silva MD Furnace Process Plant Operator 7p-7a After 7 am please contact day [...] at bedtime?as needed?Sleep ? Inpatient Medications Medications (25) Active SCHEDULED: (10) Enoxaparin 40 mg Inj (Enoxaparin Inj) ??40 mg 0.4 mL, Subcutaneous Injection, Daily Folic Acid 1 mg Tablet (Folic Acid Tablet) ??1 mg, By Mouth, Daily Folic Acid 1 mg Tablet (Folic Acid Tablet) ??1 mg, By Mouth, Daily Multivitamin Therapeutic / Minerals Tablet (Multivit Therapeutic/Minerals Tablet) ??1 tablet, By Mouth, Daily Multivitamin Therapeutic / Minerals Tablet (Multivit Therapeutic/Minerals Tablet) ??1 tablet, By Mouth, Daily NaCl 0.9% Flush 3ml (NaCL 0.9% Flush) ??3 mL, IV Push, Every 8 hours Pyridoxine 50 mg Tablet (Pyridoxine Tablet) ??50 mg, By Mouth, Daily Pyridoxine 50 mg Tablet (Pyridoxine Tablet) ??50 mg, By Mouth, Daily Thiamine 100 mg Tablet (Thiamine Tablet) ??100 mg, By Mouth, 2 times a day Thiamine 100 mg Tablet (Thiamine Tablet) ??100 mg, By Mouth, 2 times a day CONTINUOUS: (1) NaCL 0.9% (1000 mL) Cont IV 1,000 mL (0.9% NaCL 1,000 mL) ??1,000 mL, IV Infusion, 500 mL/hr PRN: (14) Acetaminophen 325 mg Tablet (Acetaminophen Tablet) ??650 mg, By Mouth, Every 4 hours Dextromethorphan-Guaifenesin 20 mg-200 mg/10 mL Liqu UD (Robitussin DM Liquid) ??10 mL, By Mouth, Every 4 hours Docusate Sodium 100 mg Capsule (Docusate Sodium Capsule) ??100 mg 1 capsule, By Mouth, 2 times a day HYDROmorphone 2 mg/mL Inj Syringe (Dilaudid Inj) ??2 mg 1 mL, IV Push Slowly, Every 4 hours Lorazepam 1 mg Tablet (Ativan Tablet) ??1 mg, By Mouth, Every 2 hours Lorazepam 2 mg Tablet (Ativan Tablet) ??2 mg, By Mouth, Every 2 hours Lorazepam 2 mg Tablet (LORazepam Tablet) ??2 mg, By Mouth, Every hour Melatonin 3 mg Tablet (Melatonin Tablet) ??3 mg, By Mouth, Daily at bedtime NaCl 0.9% Flush 3ml (NaCL 0.9% Flush) ??3 mL, IV Push, Every 8 hours Phenobarbital 65 mg/mL Inj (Phenobarbital Inj) ??65 mg 1 mL, IV Push, Every 2 hours Polyethylene Glycol 17 Gm Powder (MiraLax Powder) ??17 Gm 1 pack/packet, By Mouth, Daily Polyvinyl Alcohol 1.4% Opthalmic Solution/Artificial Tears (Artificial Tears1.4%) ??2 drops, Eyes, Both, Every 4 hours Senna Tablet ??8.6 mg 1 tablet, By Mouth, 2 times a day Simethicone 80 mg Chewable Tablet (Simethicone Tablet) ??80 mg, Chew, 3 times a day ? Results Recent Labs BLOOD COUNT & DIFF WBC 3.3 k/mm3 (Low)?? 05/22/2024 03:51 RBC 3.48 m/mm3 (Low)?? 05/22/2024 03:51 Hgb 10.3 Gm/dL (Low)?? 05/22/2024 03:51 Hct 31.8 % (Low)?? 05/22/2024 03:51 MCV 91.4 femtoliters ()?? 05/22/2024 03:51 MCH 29.6 pg ()?? 05/22/2024 03:51 MCHC 32.4 g/dL (Low)?? 05/22/2024 03:51 Platelet Count 45 k/mm3 (Low)?? 05/22/2024 03:51 RDW-SD 61.1 femtoliters (High)?? 05/22/2024 03:51 MPV 11.0 femtoliters ()?? 05/22/2024 03:51 Nucleated RBC (Automated) 0.0 #/100 WBC'S ()?? 05/22/2024 03:51 Abs. NRBC 0.0 k/mm3 ()?? 05/22/2024 03:51 Abs. Neut 1.8 k/mm3 ()?? 05/22/2024 03:51 Abs. Lymph 1.1 k/mm3 ()?? 05/22/2024 03:51 Abs. Custer 0.2 k/mm3 (Low)?? 05/22/2024 03:51 Abs. Eo 0.1 k/mm3 ()?? 05/22/2024 03:51 Abs. Baso 0.0 k/mm3 ()?? 05/22/2024 03:51 Neut % 54.7 % ()?? 05/22/2024 03:51 Lymph % 34.7 % ()?? 05/22/2024 03:51 Custer % 7.0 % ()?? 05/22/2024 03:51 Eos % 3.0 % ()?? 05/22/2024 03:51 Baso % 0.3 % ()?? 05/22/2024 03:51 Hemoglobin (POC) POC Cartridge 13.3 Gm/dL ()?? 05/21/2024 16:17 Hematocrit (POC) POC Cartridge 39 % ()?? 05/21/2024 16:17 Imm Gran 0.3 % ()?? 05/22/2024 03:51 Abs. Imm Gran 0.0 k/mm3 ()?? 05/22/2024 03:51 ?? BLOOD GAS pH Venous (POC) POC Cartridge 7.60 (High)?? 05/21/2024 16:17 pCO2 Venous (POC) POC Cartridge 27.6 mm Hg (Low)?? 05/21/2024 16:17 pO2 Venous (POC) POC Cartridge 33 mm Hg (Low)?? 05/21/2024 16:17 Est Bicarbonate (POC) POC Cartridge 27.4 mmol/L ()?? 05/21/2024 16:17 % O2 Sat Venous (POC) POC Cartridge 76 ()?? 05/21/2024 16:17 Base Excess (POC) POC Cartridge 6 ()?? 05/21/2024 16:17 Specimen Type - Blood Gas VENOUS ()?? 05/21/2024 16:17 ?? CARDIAC Nt-Probnp 315 pg/mL (High)?? 05/21/2024 16:50 High Sensitivity Troponin (HSTnT) 10 ng/L ()?? 05/21/2024 16:50 ?? CHEM GENERAL Sodium 136 mmol/L ()?? 05/22/2024 03:53 Potassium 3.0 mmol/L (Low)?? 05/22/2024 03:53 Chloride 101 mmol/L ()?? 05/22/2024 03:53 Bicarbonate Level 23 mmol/L ()?? 05/22/2024 03:53 Anion Gap 12 ()?? 05/22/2024 03:53 Sodium (POC) POC Cartridge 142 mmol/L ()?? 05/21/2024 16:17 Potassium (POC) POC Cartridge 2.6 mmol/L (Critical)?? 05/21/2024 16:17 Glucose Level 64 mg/dL (Low)?? 05/22/2024 03:53 Glucose (POC) POC Cartridge 113 (High)?? 05/21/2024 16:17 BUN 2 mg/dL (Low)?? 05/22/2024 03:53 Creatinine-Blood 0.61 mg/dL ()?? 05/22/2024 03:53 Estimated GFR Creatinine 112 ML/MIN/1.73 M2 ()?? 05/22/2024 03:53 Calcium 7.4 mg/dL (Low)?? 05/22/2024 03:53 Calcium, Ionized pH Corrected 1.04 mmol/L (Low)?? 05/21/2024 21:35 Ionized Calcium (POC) POC Cartridge 0.92 mmol/L (Critical)?? 05/21/2024 16:17 Phosphorus 2.4 mg/dL (Low)?? 05/22/2024 03:53 Magnesium 1.7 mg/dL ()?? 05/22/2024 03:53 Protein, Total 6.3 Gm/dL ()?? 05/22/2024 03:53 Albumin 3.2 Gm/dL (Low)?? 05/22/2024 03:53 AG Ratio 1.0 ()?? 05/22/2024 03:53 Alkaline Phosphatase 84 units/L ()?? 05/22/2024 03:53 Lipase 27 units/L ()?? 05/21/2024 15:45 AST (SGOT) 85 units/L (High)?? 05/22/2024 03:53 ALT (SGPT) 31 units/L ()?? 05/22/2024 03:53 Bilirubin, Total 3.3 mg/dL (High)?? 05/22/2024 03:53 Lactate 4.5 mmol/L (High)?? 05/21/2024 18:50 ?? COAG INR 1.9 (High)?? 05/21/2024 15:45 Protime (PT) 19.1 seconds (High)?? 05/21/2024 15:45 ?? MISC. CHEMISTRY Ammonia, Venous 51 ??mole/L ()?? 05/21/2024 15:45 Hold Gel Top SPECIMEN DISCARDED AFTER 1 WEEK ()?? 05/21/2024 15:45 ?? URINE OTHER Est Creatinine Clearance 99.64 mL/min ()?? 05/22/2024 05:26 ? Blood Glucose Trend Glucose Level:??64 mg/dL??Low (05/22/24 03:53:00) Glucose Level: 82 mg/dL (05/21/24 21:35:00) Glucose Level:??142 mg/dL??High (05/21/24 15:45:00) Glucose (POC) POC Cartridge:??113??High (05/21/24 16:17:00) ? CBC, CBC w/Diff?? CBC?? Differential?? WBC:??3.3 k/mm3??Low (03:51) Abs. Neut: 1.8 k/mm3 (03:51) RBC:??3.48 m/mm3??Low (03:51) Abs. Lymph: 1.1 k/mm3 (03:51) Hct:??31.8 %??Low (03:51) Abs. Custer:??0.2 k/mm3??Low (03:51) RDW-SD:??61.1 femtoliters??High (03:51) Abs. Eo: 0.1 k/mm3 (03:51) Nucleated RBC (Automated): 0 #/100 WBC'S (03:51) Abs. Baso: 0 k/mm3 (03:51) Abs. NRBC: 0 k/mm3 (03:51) Neut %: 54.7 % (03:51) ?? Lymph %: 34.7 % (03:51) ?? Custer %: 7 % (03:51) ?? Eos %: 3 % (03:51) ?? Baso %: 0.3 % (03:51) ?? Hemoglobin (POC) POC Cartridge: 13.3 Gm/dL (16:17) ?? Hematocrit (POC) POC Cartridge: 39 % (16:17) ?? Imm Gran: 0.3 % (03:51) ?? Abs. Imm Gran: 0 k/mm3 (03:51) ? LFT Albumin:??3.2 Gm/dL??Low (03:53) Alkaline Phosphatase: 84 units/L (03:53) ALT (SGPT): 31 units/L (03:53) AST (SGOT):??85 units/L??High (03:53) Bilirubin, Total:??3.3 mg/dL??High (03:53) Protime (PT):??19.1 seconds??High (15:45) ?? Urinalysis Est Creatinine Clearance: 99.64 mL/min (05:26) Est Creatinine Clearance: 103.02 mL/min (03:12) ? Blood Gases Specimen Type - Blood Gas: VENOUS (16:17) pH Venous (POC) POC Cartridge:??7.6??High (16:17) pCO2 Venous (POC) POC Cartridge:??27.6 mm Hg??Low (16:17) pO2 Venous (POC) POC Cartridge:??33 mm Hg??Low (16:17) Est Bicarbonate (POC) POC Cartridge: 27.4 mmol/L (16:17) % O2 Sat Venous (POC) POC Cartridge: 76 (16:17) Base Excess (POC) POC Cartridge: 6 (16:17) ? EKG study * Event Display: ECG 12-Lead Authored Date: Please click on pdf link to open report * Event Display: ECG 12-Lead Authored Date: Ventricular Rate: 69 BPM Atrial Rate: 69 BPM P-R Interval: 154 ms QRS Duration: 86 ms Q-T Interval: 608 ms QTC Calculation(Bazett): 651 ms P [place]: 37 degrees R [place]: 5 degrees T [place]: 17 degrees Normal sinus rhythm Minimal voltage criteria for LVH, may be normal variant ( R in aVL ) Prolonged QT Abnormal ECG When compared with ECG of 21-MAY-2024 17:02, No significant change Confirmed by SINCERE DELVALLE ([id number]) on 05/22/2024 12:21:22 PM Godwin: SINCERE DELVALLE * Event Display: ECG 12-Lead Authored Date: Please click on pdf link to open report * Event Display: ECG 12-Lead Authored Date: Ventricular Rate: 92 BPM Atrial Rate: 92 BPM P-R Interval: 168 ms QRS Duration: 84 ms Q-T Interval: 494 ms QTC Calculation(Bazett): 610 ms P [place]: 38 degrees R [place]: 12 degrees T [place]: 24 degrees Normal sinus rhythm Prolonged QT Abnormal ECG When compared with ECG of 21-MAY-2024 16:38, Sinus rhythm has replaced rapid atrial fibrillation Confirmed by Cory Mcdonough ([id number]) on 05/22/2024 9:11:20 AM Godwin: Cory Mcdonough * Event Display: ECG 12-Lead Authored Date: Please click on pdf link to open report * Event Display: ECG 12-Lead Authored Date: Ventricular Rate: 146 BPM QRS Duration: 78 ms Q-T Interval: 492 ms QTC Calculation(Bazett): 766 ms R [place]: 45 degrees T [place]: -57 degrees Normal sinus rhythm Alternating with Possible Ventricular tachycardia ST and T wave abnormality, consider inferolateral ischemia Abnormal ECG When compared with ECG of 21-MAY-2024 16:18, Significant changes have occurred Confirmed by ANTONIO MARSHALL MD ([id number]) on 05/22/2024 12:55:05 PM Godwin: ANTONIO MARSHALL MD Cardiology * Event Display: Cardiac Rhythm Strips Authored Date: Hospital Progress note * Ksenia Cabral RN: PERFORM, SIGN, VERIFY Event Display: Progress Note Hospital Authored Date: [id number] Patient: DAREN FITZGERALD Age: 44 years Sex: Female : 1980 Associated Diagnoses: None Author: Ksenia Cabral RN Findings Problem Related to Alteration in Fluid Electrolyte : Alteration in Fluid Electrolyte Func/new 05/27/2024 10:00 EDT Alteration Fluid Electrolytes Related to Electrolyte Imbalance Goals & Outcomes, Fluid/Electrolyte Blood glucose levels will stabilize during hospitalization,Vital signs, electrolytes & glucose levels will stabilize, Pt will maintain adequate GI/ function appropriate for pt, Pt will maintain skin turgor, Pt will resume/maintain adequate cardiac output, Pt will resume/maintain adequate hemodynamic status, Pt will state importance of adhering to medication regime Interventions, Fluid Electrolyte monitor cardiac status, monitor GI/ status, monitor hydration status, monitor mucous membranes, monitor peripheral pulses, monitor skin turgor, temperature & capillary refill BH Goals/Interventions,Fluid Electrolyte Yes Fluid Electrolyte, Problem Start 05/22/2024 13:23 Reviewed plan with, Fluid Electrolyte Patient Patient Progression, Fluid Electrolyte Pt progressing according to plan . Alteration in Psychosocial : Alteration in Psychosocial Function/new 05/27/2024 10:00 EDT Alteration in Psychosocial Related to Acute Alcohol Withdrawal Goals & Outcomes, Psychosocial Psychosocial support will be provided to Pt/S.O. as needed, Pt will identify stressors leading up to event, Pt will state importance of adhering to medication regime, Pt/caregiver will be offered appropriate resources & support, Pt/caregiver will express feelings/needs/fears /concerns, Pt/caregiver will maintain/obtain psychological stability, Pt/caregiver will participate in coping skill counseling, Pt successfully withdraws with minimal side effects, Pt will be free from withdrawal symptoms, Pt will detoxify from substance, Pt will verbalize disease concept & chemical dependency Interventions, Psychosocial Assess psychosocial needs, Assess readiness to learn needed lifestyle changes, Evaluate resources & support system available to pt, Offer support; discuss coping strategies, Provide a calm, supportive environment, Provide chances to express concerns/emotions/expectations, Provide info on community resources for education, support, Provide information about illness and recovery, Identify complications of chronic alcohol use, Assess for complications related to acute alcohol withdrawal, Determine pt's stage of withdrawal as per CIWA scale, Encourage pt to continue to detox, Initiate & maintain Seizure Precautions, Minimize stimulation, Minimize stressors, Offer support to pt/S.O. during acute alcohol withdrawal BH Goals/Interventions, Psychosocial Yes Psychosocial, Problem Start 05/25/2024 15:15 Reviewed Plan with, Psychosocial Patient Patient Progression, Psychosocial Pt progressing according to plan . Evaluation Pt alert and oriented x 4 although forgetful and slow to respond. Pt steady on feet. Pt discharged.Discharge paperwork reviewed and instructed byLora RN. Pt transported out via w/c. Emotional support and comfort provided. Discharge Information Case Management Discharge Plan : Case Management Discharge Plan Data 05/27/2024 12:10 EDT Discharge Level of Care at Discharge Home/[facility] * Ksenia Cabral RN: PERFORM, SIGN, VERIFY Event Display: Progress Note Hospital Authored Date: [id number] Patient: DAREN FITZGERALD Age: 44 years Sex: Female : 1980 Associated Diagnoses: None Author: Ksenia Cabral RN Findings Problem Related to Alteration in Fluid Electrolyte : Alteration in Fluid Electrolyte Func/new 05/26/2024 14:00 EDT Alteration Fluid Electrolytes Related to Electrolyte Imbalance Goals & Outcomes, Fluid/Electrolyte Blood glucose levels will stabilize during hospitalization,Vital signs, electrolytes & glucose levels will stabilize, Pt will maintain adequate GI/ function appropriate for pt, Pt will maintain skin turgor, Pt will resume/maintain adequate cardiac output, Pt will resume/maintain adequate hemodynamic status, Pt will state importance of adhering to medication regime Interventions, Fluid Electrolyte monitor cardiac status, monitor dietary intake, monitor for s/s ofhyper/hypokalemia, monitor for s/s of hypo or hyperglycemia, monitor GI/ status, monitor hydration status, monitor mucous membranes, monitor peripheral pulses, monitor skin turgor, temperature & capillary refill, Encourage & assist with increased activity as pt tolerates, Encourage oral in take of meals, snacks, supplements, Encourage oral intake/fluids as ordered, Teach Pt/caregiver cause of imbalance & corrective therapy BH Goals/Interventions,Fluid Electrolyte Yes Fluid Electrolyte, Problem Start 05/22/2024 13:23 Reviewed plan with, Fluid Electrolyte Patient Patient Progression, Fluid Electrolyte Pt progressing according to plan . Alteration in Psychosocial : Alteration in Psychosocial Function/new 05/26/2024 14:00 EDT Alteration in Psychosocial Related to Acute Alcohol Withdrawal Goals & Outcomes, Psychosocial Psychosocial support will be provided to Pt/S.O. as needed, Pt will identify stressors leading up to event, Pt will state importance of adhering to medication regime, Pt/caregiver will be offered appropriate resources & support, Pt/caregiver will express feelings/needs/fears /concerns, Pt/caregiver will maintain/obtain psychological stability, Pt/caregiver will participate in coping skill counseling, Pt successfully withdraws with minimal side effects, Pt will be free from withdrawal symptoms, Pt will detoxify from substance, Pt will verbalize disease concept & chemical dependency Interventions, Psychosocial Assess psychosocial needs, Assess readiness to learn needed lifestyle changes, Assess/monitor level of consciousness, Evaluate resources & support system available to pt, Offer support; discuss coping strategies, Provide a calm, supportive environment, Provide chances to express concerns/emotions/expectations, Provide info on community resources for education, support, Provide information about illness and recovery, Provide verbal limits if pt's behavior escalates, Identify complications of chronic alcohol use, Assess for complications related to acute alcohol withdrawal, Determine pt's stage of withdrawal as per CIWA scale, Encourage pt to continue to detox,Initiate & maintain Seizure Precautions, Minimize stimulation, Minimize stressors, Offer support to pt/S.O. during acute alcohol withdrawal Goals/Interventions, Psychosocial Yes Psychosocial, Problem Start 05/25/2024 15:15 Reviewed Plan with, Psychosocial Patient Patient Progression, Psychosocial Pt progressing according to plan . Evaluation Pt alert and oriented x 4 although forgetful. Pt with flat affect today. CIWA scale continues noting lower scores than yesterday. Pt right eye remains red, aware. Pt continues with headache and abd pain. PRN medications administered with some relief. HCP completed with pt and pt declined to place a person to notified. Blood work completed this am and MD aware of results. Lactulose administeredas ordered. BM administered without BM at this time. Emotional support and comfort provided. Will continue to monitor and report changes.. * Radha MARINELLI, Lacey: PERFORM, MODIFY Event Display: Progress Note Hospital Authored Date: [id number] Patient: ??DAREN FITZGERALD ? Age:??44 Years?Sex:??Female?:??1980?? Subjective Patient is lying in bed awake states vision in right eye is improving Abdominal pain is still present Nausea has improved ?? No chest pain or shortness of breath no headache dizziness Review of Systems As above Objective Vital Signs?? Temperature: 98.1 DegF (05/26/24 15:35:00) Temperature Route: Oral (05/26/24 15:35:00) Pulse Rate: 90 bpm (05/26/24 15:35:00) Respiratory Rate: 18 br/min (05/26/24 15:35:00) Systolic Blood Pressure: 130 mm Hg (05/26/24 15:35:00) Diastolic Blood Pressure: 79 mm Hg (05/26/24 15:35:00) Blood pressure sites: Arm, left (05/26/24 15:35:00) Mean Arterial Pressure: 96 mm Hg (05/26/24 15:35:00) Pulse Pressure: 51 mm Hg (05/26/24 15:35:00) Oxygen Saturation: 96 % (05/26/24 15:35:00) Mode of Delivery (Oxygen): Room air (05/26/24 15:35:00) Early Warning Score: 6 (05/26/24 15:36:24) ? Physical Exam Constitutional: Alert, in no acute distress. HEENT:??Right eye subconjunctival hemorrhage present, Mental Status: Oriented to person, place and time. Respiratory: Clear to auscultation No wheezing, rales or rhonchi. Cardiovascular: S1 S2 regular. Gastrointestinal: Abdomen soft, non-tender, non-distended. Neurologic: No new??focal neurological deficits. Musculoskeletal: No Leg edema?? _ Inpatient Medications Medications (24) Active SCHEDULED: (9) Cyclopentolate 1% Ophthalmic Solution (Cyclopentolate 1% Ophth) ??1 drops, Eye, Right, 3 times a day Folic Acid 1 mg Tablet (Folic Acid Tablet) ??1 mg, By Mouth, Daily Lactulose 20 Gm/30mL Syrup (lactulose 10 gm/15 ml oral syrup) ??20 Gm 30 mL, By Mouth, Daily Methadone 30mg/15mL UD Solution (Methadone Liquid) ??150 mg 75 mL, By Mouth, Daily Moxifloxacin 0.5% Ophthalmic Solution (3 mL) (Vigamox 0.5% Ophth) ??1 drops, Eye, Right, Every 4 hours Multivitamin Therapeutic / Minerals Tablet (Multivit Therapeutic/Minerals Tablet) ??1 tablet, By Mouth, Daily NaCl 0.9% Flush 3ml (NaCL 0.9% Flush) ??3 mL, IV Push, Every 8 hours Pyridoxine 50 mg Tablet (Pyridoxine Tablet) ??50 mg, By Mouth, Daily Thiamine 100 mg Tablet (Thiamine Tablet) ??100 mg, By Mouth, 2 times a day CONTINUOUS: (0) PRN: (15) Acetaminophen 325 mg Tablet (Acetaminophen Tablet) ??650 mg, By Mouth, Every 4 hours Dextromethorphan-Guaifenesin 20 mg-200 mg/10 mL Liqu UD (Robitussin DM Liquid) ??10 mL, By Mouth, Every 4 hours Docusate Sodium 100 mg Capsule (Docusate Sodium Capsule) ??100 mg 1 capsule, By Mouth, 2 times a day HYDROmorphone 2 mg Tablet (Dilaudid 2 mg oral tablet) ??2 mg, By Mouth, Every 4 hours Lorazepam 1 mg Tablet (Ativan Tablet) ??1 mg, By Mouth, Every 2 hours Lorazepam 2 mg Tablet (Ativan Tablet) ??2 mg, By Mouth, Every 2 hours Lorazepam 2 mg Tablet (LORazepam Tablet) ??2 mg, By Mouth, Every hour Melatonin 3 mg Tablet (Melatonin Tablet) ??3 mg, By Mouth, Daily at bedtime NaCl 0.9% Flush 3ml (NaCL 0.9% Flush) ??3 mL, IV Push, Every 8 hours nalOXONE ??400mcg/mL Inj (nalOXONE Inj) ??0.2 mg 0.5 mL, IV Push, Every 5 minutes Ondansetron 2mg/mL Inj (2mL Vial) (Zofran Inj) ??4 mg, IV Push, Every 6 hours Polyethylene Glycol 17 Gm Powder (MiraLax Powder) ??17 Gm 1 pack/packet, By Mouth, Daily Polyvinyl Alcohol 1.4% Opthalmic Solution/Artificial Tears (Artificial Tears1.4%) ??2 drops, Eyes, Both, Every 4 hours Senna Tablet ??8.6 mg 1 tablet, By Mouth, 2 times a day Simethicone 80 mg Chewable Tablet (Simethicone Tablet) ??80 mg, Chew, 3 times a day ? Results Blood Glucose Trend Glucose Level:??151 mg/dL??High (05/26/24 08:26:00) ?(05/21/2024 18:[address] Abd/Pelvis W/ IV Contrast Only) ? Assessment/Plan Chief Complaint: pt BIBA from home, with c/o abd pain, N/V/ dizziness x 2 weeks. Pt arrives pale anddiaphoretic, HX pancreatitis and cirrohsis last drink 2 days ago ? 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 05/03/24?presented to ED??on 05/21/2024 with abdominal pain vomiting??and blurred vision in right eye ?? Hospitalizations in the last couple of months: 03/09/2024 - 03/14/2024 03/15/2024 - 03/17/2024 03/25/2024 - 03/28/2024 04/21/2024 - 05/03/2024 ?? >>>>>>>>>>>>>>>>>>>>>>>>>>>>>>>>>>>>>>>>>>>>>>>>>>>>>>>>>>>>>>>>>>>>>>>>>>> >>>>>>>>> ? Vomiting (R11.10)???resolved Hypomagnesemia (E83.42),??Hypokalemia (E87.6),?? NSVT (nonsustained ventricular tachycardia) (I47.29)??resolved Lactic acid acidosis (E87.20)??resolved Patient presented with 2 weeks of??persistent vomiting, history of pancreatitis,??and alcohol use disorder Labs showed significant electrolyte abnormalities including hypokalemia, hypomagnesemia, hypocalcemia Developed multiple runs of NSVT Improved with electrolyte repletion, single dose of??150 mg amiodarone bolus ??? Per cardiology will hold off on further amiodarone Electrolytes were replaced no further episodes was taken off of??telemetry and was transferred out of telemetry floor Replace electrolytes as needed ? Acute on chronic abdominal pain???improving?? Lipase normal at presentation. ??Pancreas appears normal on imaging 05/21 CT abdomen???Chronic stranding at the root of the mesentery of indeterminate etiology. Cirrhotic liver with diffuse hypodensities which are slightly increased in size and sequelae of portal hypertension. Detailed evaluation is discussed with MRI. 05/23 MRI abdomen???Severe hepatic steatosis with nodular focal fat deposition throughout the liver,minimally more conspicuous from prior MRI with slight worsening of background fat fraction. No discrete suspicious enhancing observation. Mildly nodular hepatic contour, severe splenomegaly, and varices are compatible with cirrhosis and portal hypertension Has previous admissions abdominal pain??with??negative workup, most recently??04/21/2024 - 05/03/2024 Continues to drink alcohol Currently on IV Dilaudid switched to oral ?? Alcohol withdrawal (F10.939):? Severe alcohol use disorder ??(F10.20) CIWA Ativan PRN thiamine, folate, multivitamin Patient??yesterday reported she was interested in speaking with addiction medicine however??under consult today she did not show any interest in the signed off ? Corneal ulcer of right eye ??(H16.001) -unclear etiology as not contact lens wearer, but??patient has episodes of etoh abuse and??LOC Ophthalmology consulted recommending: -recommend starting topical vigamox??6x a day -use cyclopentolate TID for comfort -needs f/u with us sometime next week sooner PRN >>??Patient reports improvement in symptoms ?? Subconjunctival??hemorrhage of right eye ??(H11.31) Ophthalmology evaluated recommending: -etiology could be Valsalva related due to emesis from ETOH abuse, could be trauma that patient does not remember ???Monitor ? Alcoholic cirrhosis of liver (K70.30): Hepatic steatosis ??(K76.0) Hepatitis C antibody test positive ??(R76.8) Hyperbilirubinemia ??(E80.6) 05/23 MRI abdomen???Severe hepatic steatosis with nodular focal fat deposition throughout the liver,minimally more conspicuous from prior MRI with slight worsening of background fat fraction. No discrete suspicious enhancing observation. Mildly nodular hepatic contour, severe splenomegaly, and varices are compatible with cirrhosis and portal hypertension Hep C Ab positive, negative viral load on 04/22. Patient has??[facility] follow up scheduled in May. Will need EGD and Q6 US for surveillance iso cirrhosis ? Opioid use disorder in remission ??(F11.91) Methadone dose was verified and restarted On methadone 150 Mg daily ?? Chronic pancytopenia (D61.818):?? Iron deficiency anemia 04/21/2024 :??Was also evaluated by??hematology? likely due to cirrhosis. Peripheral smear nondiagnostic, past infection of Kaylee-Segovia virus, non- reacting HIV,?high Vit b12 and low normal folate, no HepC load LDH, haptoglobin, ferritin, copper,??zinc??reasonably normal; low iron levels; NE tick panel negative Count stable??so far Oral iron??on hold ? Code status: full DVT ppx:??lovenox DC'd due to thrombocytopenia. ??Pneumoboots Consult note * Lucita London: PERFORM, SIGN, VERIFY Event Display: Consultation Note Authored Date: [id number] Patient: DAREN FITZGERALD Age: 44 years Sex: Female : 1980 Associated Diagnoses: None Author: Lucita London Addiction med consult requested for heavy ETOH use. Addiction steamer blocker met with pt this morning to see what??the pt??might be interested in pursuing, as interventions we have to offer are voluntary. This includes medication for ETOH cravings, and referrals for supports in the community such as treatment programs, therapy, and recovery coaching. At this time, pt expressed??no interest in pursuing any referrals??or initiating any medications. Should pt decide to pursue anything later in this admission, feel free to reach out. Primary team updated. Will sign off for now. * Awilda Avery: PERFORM, SIGN, VERIFY Event Display: Consultation Note Authored Date: [id number] Patient: DAREN FITZGERALD Age: 44 years Sex: Female : 1980 Associated Diagnoses: None Author: Awilda Avery This keno writer met with patient this morning to discuss recovery resources. Patient declined all recovery resources at this time. If patient decides she would like assistance with resources, this writerwill meet with patient again. Note * Lora Francis RN: PERFORM Event Display: Discharge/Transfer Note Hospital Authored Date: [id number] Nursing Discharge Note Entered On: 05/27/2024 12:10 EDT Performed On: 05/27/2024 12:10 EDT by Lora Francis RN Nursing Discharge Note 2 Discharge Time : 05/27/2024 12:10 EDT Discharge Level of Care at Discharge : Home/[facility] Patient Left Unit Via : Wheelchair Patient Accompanied Off Unit with : Responsible adult DC Instructions Provided & Signed by Pt : Yes Patient Understands D/C Instructions : Yes Patient Instructions Discharge Signed : Yes Did Pt have Specialty Bed or Wound Vac : No Lora Francis RN - 05/27/2024 12:10 EDT * Lacey Garcia MD: PERFORM, MODIFY, MODIFY Event Display: Discharge/Transfer Note Hospital Authored Date: [id number] Patient: ??DAREN FITZGERALD ? Age:??44 Years?Sex:??Female?:??1980?? Patient Information Discharge Location: Primary Care Physician: Rebekah Fiore MD Admit Date/Time: 05/21/24 20:35 Discharge Disposition Discharge Disposition: Home: No Services Discharge Diagnosis Hypokalemia (E87.6) Hypomagnesemia (E83.42) Vomiting (R11.10) Alcohol withdrawal (F10.939) Lactic acid acidosis (E87.20) Substance abuse in remission (F19.11) Corneal ulcer of right eye (H16.001) Severe alcohol use disorder (F10.20) Opioid use disorder in remission (F11.91) Hepatic steatosis (K76.0) Hepatitis C antibody test positive (R76.8) Subconjunctival hemorrhage of right eye (H11.31) NSVT (nonsustained ventricular tachycardia) (I47.29) Hyperbilirubinemia (E80.6) _ Discharge Medications Acamprosate (acamprosate 333 mg oral delayed release tablet)?666?Milligram?By Mouth?3 times a day with meals Albuterol (albuterol CFC free 90 mcg/inh inhalation aerosol)?2?puff(s)?Inhalation?4 times a day?as needed?as needed for wheezing Cyclopentolate Ophthalmic (cyclopentolate 1% ophthalmic solution)?1?Drops?Eye, Right?3 times a day?for 5?Days Ferrous Sulfate (ferrous sulfate 325 mg oral enteric coated tablet)?325?Milligram?By Mouth?Daily Hydromorphone (Dilaudid 2 mg oral tablet)?2?Milligram?By Mouth?Every 6 hours?as needed?Pain , Severe?for 3?Days HydrOXYzine (hydrOXYzine hydrochloride 25 mg oral tablet)?1?tab(s)?25?Milligram?By Mouth?2 times a day?as needed?anxiety Lactulose (lactulose 10 gm/15 ml oral syrup)?15?Milliliter?10?gram?By Mouth?2 times a day?as needed?as needed for constipation Magnesium Oxide (magnesium oxide 500 mg oral capsule)?1?capsule?500?Milligram?By Mouth?Daily Methadone (methadone 10 mg/5 mL oral solution)?75?Milliliter?150?Milligram?By Mouth?Daily moxifloxacin ophthalmic (moxifloxacin 0.5% ophthalmic solution)?1?Drops?Eye, Right?Every 4 hours?for 3?Days Multivitamin (Multivitamin Tablet)?1?tab(s)?By Mouth?Daily Ondansetron (ondansetron 4 mg oral tablet)?1?tab(s)?4?Milligram?By Mouth?Every 8 hours?as needed?Nausea & Vomiting?for 7?Days Pancrelipase (Creon 36,000 units oral delayed release capsule)?1?capsule?By Mouth?3 times a day Pantoprazole (pantoprazole 40 mg oral delayed release tablet)?1?tab(s)?40?Milligram?By Mouth?Daily Polyethylene Glycol 3350 (polyethylene glycol 3350 oral powder for reconstitution)?17?gram?By Mouth?Daily?dissolve in 4 to 8 oz of beverage. Take once daily, or up to three times dailyas needed for regular soft stools ? Quality Measures Tobacco Use Treatment:? 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 05/03/24?presented to ED??on 05/21/2024 with abdominal pain vomiting??and blurred vision in right eye ?? Hospitalizations in the last couple of months: 03/09/2024 - 03/14/2024 03/15/2024 - 03/17/2024 03/25/2024 - 03/28/2024 04/21/2024 - 05/03/2024 ? In ED she was afebrile hemodynamically stable. ??WBC 2.5, unremarkable CBC, potassium 2.6, magnesium 0.9, ionized calcium 0.92, phosphorus 2.4, AST 105, ALT 39, total bilirubin 2.2, lactate 5.5 with repeat 4.5.?? She had multiple episodes of NSVT and cardiology was consulted, thought to be secondary to electrolyte abnormality, recommended aggressive electrolyte repletion.?? CT abdomen shows chronic stranding anterior mesentery of indeterminate etiology, cirrhotic liver changes with diffuse hypodensities that are increased in size and ??portal hypertension.?? She was given IV fluids with improvement in lactate.?? Electrolytes were repleted.?? No further arrhythmias on telemetry.?? She was started on IV fluids, given opioids for pain control. ?? Patient went through mild alcohol withdrawal.?Vomiting resolved with??hydration and supportive treatment. ??Regarding??chronic abdominal pain she has had recurrent??workup for abdominal pain most recently??earlier this month. ??She had repeat scanning again this admission CT and MRI of the abdomen which showed severe hepatic steatosis??and also cirrhosis and sequela. ??No evidence of masses noascites.?? Lipase was negative and??pancreas was normal on imaging ruling out pancreatitis.?? Abdominal pain is all over the abdomen without any??localization.?? Abdomen is consistently soft??withoutany guarding rigidity on exam is tolerating??diet well.?She is actively drinking addiction medicine was consulted??however she??did not show any interest in recovery services they signed off. ?? Patient was also??noted to have corneal ulceration of the right eye and subconjunctival hemorrhage.?? Etiology of??ulceration was unknown has patient??was??intoxicated??prior to admission and could have??had trauma to the eye which she does not remember??subconjunctival hemorrhage likely from??vomit ing which she had at??presentation.?? Ophthalmology was on consult recommended??6 days of??Vigamox and??cyclopentolate for comfort. ??Patient reported improvement in vision gradually. ? As alcohol withdrawal resolved pain improved vomiting resolved patient is improving patient is being discharged. ? Objective Assessment and Plan ?? Vomiting (R11.10)???resolved Hypomagnesemia (E83.42),??Hypokalemia (E87.6),?? NSVT (nonsustained ventricular tachycardia) (I47.29)??resolved Lactic acid acidosis (E87.20)??resolved Patient presented with 2 weeks of??persistent vomiting, history of pancreatitis,??and alcohol use disorder Labs showed significant electrolyte abnormalities including hypokalemia, hypomagnesemia, hypocalcemia Developed multiple runs of NSVT Improved with electrolyte repletion, single dose of??150 mg amiodarone bolus Per cardiology will hold off on further amiodarone Electrolytes were replaced no further episodes was taken off of??telemetry and was transferred out of telemetry floor Replace electrolytes as needed ? Acute on chronic abdominal pain???improving?? Lipase normal at presentation. ??Pancreas appears normal on imaging 05/21 CT abdomen???Chronic stranding at the root of the mesentery of indeterminate etiology. Cirrhotic liver with diffuse hypodensities which are slightly increased in size and sequelae of portal hypertension. Detailed evaluation is discussed with MRI. 05/23 MRI abdomen???Severe hepatic steatosis with nodular focal fat deposition throughout the liver,minimally more conspicuous from prior MRI with slight worsening of background fat fraction. No discrete suspicious enhancing observation. Mildly nodular hepatic contour, severe splenomegaly, and varices are compatible with cirrhosis and portal hypertension Has previous admissions abdominal pain??with??negative workup, most recently??04/21/2024 - 05/03/2024 Continues to drink alcohol ? Alcohol withdrawal (F10.939):??Resolved Severe alcohol use disorder ??(F10.20) CIWA??with Ativan??scoring??less than 8 in last 24 hours DC CIWA thiamine, folate, multivitamin Patient??yesterday reported she was interested in speaking with addiction medicine however??under consult today she did not show any interest in any servicesand??they signed off. ? Corneal ulcer of right eye ??(H16.001) -unclear etiology as not contact lens wearer, but??patient has episodes of ETOH abuse and??LOC Ophthalmology consulted recommending: -recommend starting topical vigamox??6x a day -use cyclopentolate TID for comfort -needs f/u with us sometime next week sooner PRN >>??Patient reports improvement in symptoms ?? Subconjunctival??hemorrhage of right eye ??(H11.31) Ophthalmology evaluated recommending: -etiology could be Valsalva related due to emesis from ETOH abuse, could be trauma that patient does not remember ???Monitor ? Alcoholic cirrhosis of liver (K70.30): Hepatic steatosis ??(K76.0) Hepatitis C antibody test positive ??(R76.8) Hyperbilirubinemia ??(E80.6) 05/23 MRI abdomen???Severe hepatic steatosis with nodular focal fat deposition throughout the liver,minimally more conspicuous from prior MRI with slight worsening of background fat fraction. No discrete suspicious enhancing observation. Mildly nodular hepatic contour, severe splenomegaly, and varices are compatible with cirrhosis and portal hypertension Hep C Ab positive, negative viral load on 04/22. Patient has??[facility] follow up scheduled in May. Will need EGD and Q6 US for surveillance iso cirrhosis ? Opioid use disorder in remission ??(F11.91) Methadone dose was verified and restarted On methadone 150 Mg daily ?? Chronic pancytopenia (D61.818):?? Iron deficiency anemia 04/21/2024 :??Was also evaluated by??hematology? likely due to cirrhosis. Peripheral smear nondiagnostic, past infection of Kaylee-Segovia virus, non- reacting HIV,?high Vit b12 and low normal folate, no HepC load LDH, haptoglobin, ferritin, copper,??zinc??reasonably normal; low iron levels; NE tick panel negative Count stable??so far Oral iron? Code status: full Measurements?? Height: 162 cm (05/27/24) Weight: 85.1 kg (05/22/24) Dry Weight: 85.1 kg (05/22/24) Body Mass Index:??32.43 kg/m2??Critical (05/22/24) ? Vital Signs?? Temperature: 97.4 DegF (05/27/24 08:02:00) Temperature Route: Oral (05/27/24 08:02:00) Pulse Rate: 57 bpm (05/27/24 08:02:00) Respiratory Rate: 20 br/min (05/27/24 08:02:00) Systolic Blood Pressure: 102 mm Hg (05/27/24 08:02:00) Diastolic Blood Pressure: 57 mm Hg (05/27/24 08:02:00) Blood pressure sites: Arm, right (05/27/24 08:02:00) Mean Arterial Pressure: 72 mm Hg (05/27/24 08:02:00) Pulse Pressure: 45 mm Hg (05/27/24 08:02:00) Oxygen Saturation: 94 % (05/27/24 08:02:00) Mode of Delivery (Oxygen): Room air (05/27/24 08:02:00) Early Warning Score:??10??Critical (05/27/24 08:03:03) ? . Physical Exam Constitutional: Alert, in no acute distress. HEENT:L??right eye??subconjunctival hemorrhage present. ??No discharge or drainage. ??Able to read fingers to the right eye. Mental Status: Oriented to person, place and time. Respiratory: Clear to auscultation No wheezing, rales or rhonchi. Cardiovascular: S1 S2 regular. Gastrointestinal: Abdomen soft, mild tenderness all over the abdominal guarding rigidity abdomen issoft, non-distended. Neurologic: No new??focal neurological deficits. Musculoskeletal: No Leg edema?? Pending Results Basic Metabolic Panel ordered on 05/23/2024 Hold Lavender Tube (BB) ordered on 05/21/2024 Magnesium Level ordered on 05/23/2024 Follow-Up Appointments Added Follow Up ?Time Frame ?Comments Esther MARINELLI, Ethan?1-2 day: call to discuss follow up visit Rebekah Fiore MD?1-2 day: call to discuss follow up visit Patient Instructions Your liver is shutting down??rapidly due to damage from alcohol. ??You only have a few??living liver cells left,??if you continue drinking it will lead to ??from liver failure. ??Please stop drinking. ??Please follow-up with your addictions counselor outpatient.? Please follow-up with your PCP ?? please call ophthalmology office for follow up appointment.?? Information provided for the office as below. Home Health Face to Face ^HomeHealthFTF Results Discharge Labs BLOOD COUNT & DIFF WBC 2.6 k/mm3 (Low)?? 05/26/2024 08:26 RBC 3.53 m/mm3 (Low)?? 05/26/2024 08:26 Hgb 10.7 Gm/dL (Low)?? 05/26/2024 08:26 Hct 33.6 % (Low)?? 05/26/2024 08:26 MCV 95.2 femtoliters ()?? 05/26/2024 08:26 MCH 30.3 pg ()?? 05/26/2024 08:26 MCHC 31.8 g/dL (Low)?? 05/26/2024 08:26 Platelet Count 53 k/mm3 (Low)?? 05/26/2024 08:26 RDW-SD 69.0 femtoliters (High)?? 05/26/2024 08:26 MPV 10.8 femtoliters ()?? 05/26/2024 08:26 Nucleated RBC (Automated) 0.0 #/100 WBC'S ()?? 05/26/2024 08:26 Abs. NRBC 0.0 k/mm3 ()?? 05/26/2024 08:26 Abs. Neut 1.4 k/mm3 ()?? 05/26/2024 08:26 Abs. Lymph 1.0 k/mm3 ()?? 05/26/2024 08:26 Abs. Custer 0.2 k/mm3 (Low)?? 05/26/2024 08:26 Abs. Eo 0.1 k/mm3 ()?? 05/26/2024 08:26 Abs. Baso 0.0 k/mm3 ()?? 05/26/2024 08:26 Neut % 52.7 % ()?? 05/26/2024 08:26 Lymph % 36.9 % ()?? 05/26/2024 08:26 Custer % 6.5 % ()?? 05/26/2024 08:26 Eos % 3.1 % ()?? 05/26/2024 08:26 Baso % 0.4 % ()?? 05/26/2024 08:26 Hemoglobin (POC) POC Cartridge 13.3 Gm/dL ()?? 05/21/2024 16:17 Hematocrit (POC) POC Cartridge 39 % ()?? 05/21/2024 16:17 Imm Gran 0.4 % ()?? 05/26/2024 08:26 Abs. Imm Gran 0.0 k/mm3 ()?? 05/26/2024 08:26 ?? BLOOD GAS pH Venous (POC) POC Cartridge 7.60 (High)?? 05/21/2024 16:17 pCO2 Venous (POC) POC Cartridge 27.6 mm Hg (Low)?? 05/21/2024 16:17 pO2 Venous (POC) POC Cartridge 33 mm Hg (Low)?? 05/21/2024 16:17 Est Bicarbonate (POC) POC Cartridge 27.4 mmol/L ()?? 05/21/2024 16:17 % O2 Sat Venous (POC) POC Cartridge 76 ()?? 05/21/2024 16:17 Base Excess (POC) POC Cartridge 6 ()?? 05/21/2024 16:17 Specimen Type - Blood Gas VENOUS ()?? 05/21/2024 16:17 ? CARDIAC Nt-Probnp 315 pg/mL (High)?? 05/21/2024 16:50 High Sensitivity Troponin (HSTnT) 10 ng/L ()?? 05/21/2024 16:50 ?? CHEM GENERAL Sodium 136 mmol/L ()?? 05/26/2024 08:26 Potassium 3.8 mmol/L ()?? 05/26/2024 08:26 Chloride 99 mmol/L ()?? 05/26/2024 08:26 Bicarbonate Level 30 mmol/L (High)?? 05/26/2024 08:26 Anion Gap 7 ()?? 05/26/2024 08:26 Sodium (POC) POC Cartridge 142 mmol/L ()?? 05/21/2024 16:17 Potassium (POC) POC Cartridge 2.6 mmol/L (Critical)?? 05/21/2024 16:17 Glucose Level 151 mg/dL (High)?? 05/26/2024 08:26 Glucose (POC) POC Cartridge 113 (High)?? 05/21/2024 16:17 Glucose, POC 95 mg/dL ()?? 05/23/2024 04:47 BUN 7 mg/dL ()?? 05/26/2024 08:26 Creatinine-Blood 0.69 mg/dL ()?? 05/26/2024 08:26 Estimated GFR Creatinine 109 ML/MIN/1.73 M2 ()?? 05/26/2024 08:26 Calcium 8.7 mg/dL ()?? 05/26/2024 08:26 Calcium, Ionized pH Corrected 1.04 mmol/L (Low)?? 05/21/2024 21:35 Ionized Calcium (POC) POC Cartridge 0.92 mmol/L (Critical)?? 05/21/2024 16:17 Phosphorus 2.4 mg/dL (Low)?? 05/22/2024 03:53 Magnesium 1.8 mg/dL ()?? 05/26/2024 08:26 Protein, Total 6.3 Gm/dL ()?? 05/26/2024 08:26 Albumin 3.1 Gm/dL (Low)?? 05/26/2024 08:26 AG Ratio 1.0 ()?? 05/26/2024 08:26 Alkaline Phosphatase 75 units/L ()?? 05/26/2024 08:26 Lipase 27 units/L ()?? 05/21/2024 15:45 AST (SGOT) 61 units/L (High)?? 05/26/2024 08:26 ALT (SGPT) 24 units/L ()?? 05/26/2024 08:26 Bilirubin, Total 1.3 mg/dL (High)?? 05/26/2024 08:26 Lactate 1.1 mmol/L ()?? 05/26/2024 08:26 ? COAG INR 1.6 (High)?? 05/26/2024 08:26 Protime (PT) 16.4 seconds (High)?? 05/26/2024 08:26 ?? MISC. CHEMISTRY Ammonia, Venous 51 ??mole/L ()?? 05/21/2024 15:45 Hold Gel Top SPECIMEN DISCARDED AFTER 1 WEEK ()?? 05/21/2024 15:45 ?? URINE OTHER Est Creatinine Clearance 88.09 mL/min ()?? 05/26/2024 09:18 ? 35_ minutes spent on discharge * Lora Francis RN: PERFORM Event Display: Patient Education/Instruction Authored Date: Inpatient Adult Discharge Instructions. [address] [address] Name: DAREN FITZGERALD : 1980?? Visit: 05/21/2024 20:35?? Current Date: 05/27/2024 11:19 ?? Account: [id number]?? Inpatient Adult Discharge Instructions We would like [...] and their families. Surveys are administered by [employer] ?? If further treatment with your primary care physician or another doctor is recommended, it is important for you to keep the appointment. Call your primary care physician or return to the Emergency Department immediately if your condition worsens, fails to improve, or new symptoms develop. If you need to find a doctor, you can call [facility] Link for a referral at [phone] or toll free at [phone] ([phone]) or log in to [email or web address].. ?? [facility], in keeping with [facility] guidance, no longer requires face masks for [...] a health care amberly of your choosing. [employer] is a website that allows you to securely view your medical information including your hospital discharge summary, office visit summaries, medications and follow-up visits. You can also request appointments, renew medications, and request access to your medical information using a health care amberly of your choosing, or just ask a question. You can enroll at [email or web address] or register during your next office visit. You have been discharged from [facility], Patient Care Unit: S3??. If you have any questions regarding these instructions, including results of studies pending, afteryou leave, please call us and we will be happy to assist you 20/05. [facility] Your Care Team Attending Physician Lacey Garcia MD?? Consulting Providers Lacey Garcia MD?? Discharging Providers Lacey Garcia MD Reason for Your Visit pt ANDREA from home, with c/o abd pain, N/V/ dizziness x 2 weeks. Pt arrives pale an ddiaphoretic, HXpancreatitis and cirrohsis last drink 2 days ago?? Your Diagnosis Hypokalemia Hypomagnesemia Vomiting Alcohol withdrawal Lactic acid acidosis Substance abuse in remission Corneal ulcer of right eye Severe alcohol use disorder Opioid use disorder in remission Hepatic steatosis Hepatitis C antibody test positive Subconjunctival hemorrhage of right eye Abdominal pain NSVT (nonsustained ventricular tachycardia) Hyperbilirubinemia Tests Performed Below is a partial list of the tests performed during your hospitalization. You may have had other tests and procedures not included in this list. Please discuss all test results with your provider. Ammonia Venous BASE EXCESS POC CARTRIDGE Basic Metabolic Panel Calcium Ionized CALCIUM IONIZED POC CART CBC CBC w/ Differential Comprehensive Metabolic Panel GLUCOSE POC GLUCOSE POC CARTRIDGE HEMATOCRIT POC CARTRIDGE HEMOGLOBIN POC CARTRIDGE High??Sensitivity??Troponin T HOLD GEL TUBE INR Lactate Level Lactic Acid Level LIPASE Magnesium Level Phosphorus Level POTASSIUM POC CARTRIDGE ProBNP SODIUM POC CARTRIDGE VBG POC CARTRIDGE CT Abd/Pelvis W/ IV Contrast Only MRI Abdomen W+W/O Contrast Ammonia Venous?? B Type Natriuretic Peptide (ProBNP)?? Base Excess (Lab) POC Cartridge (BASE EXCESS POC CARTRIDGE)?? Basic Metabolic Panel?? CBC?? CBC w/ Differential?? CT Abd/Pelvis W/ IV Contrast Only?? Comprehensive Metabolic Panel?? Glucose (Lab) POC Cartridge (GLUCOSE POC CARTRIDGE)?? Glucose POC?? Hematocrit (Lab) POC Cartridge (HEMATOCRIT POC CARTRIDGE)?? Hemoglobin (Lab) POC Cartridge (HEMOGLOBIN POC CARTRIDGE)?? High??Sensitivity??Troponin T?? Hold Gel Top Tube (HOLD GEL TUBE)?? Hold Lavender Tube (BB)?? INR?? Ionized Calcium (Calcium Ionized)?? Ionized Calcium(POC) POC Cartridge (CALCIUM IONIZED POC CART)?? Lactic Acid Level?? Lipase?? MRI Abdomen W+W/O Contrast?? Magnesium Level?? Phosphorus Level?? Potassium (Lab) POC Cartridge (POTASSIUM POC CARTRIDGE)?? Sodium (Lab) POC Cartridge (SODIUM POC CARTRIDGE)?? VBG (Lab) POC Cartridge (VBG POC CARTRIDGE)?? Primary Care Provider Rebekah Fiore MD? Advance Directive Health Care Proxy on File No Patient refuses to discuss Discharge Vitals Temperature: 97.7 DegF Height: 162 cm Pulse Rate: 70 bpm Weight: 85.1 kg Respiratory Rate: 16 br/min Body Mass Index:??32.43 kg/m2??Critical Systolic Blood Pressure: 104 mm Hg Body surface area: 1.96 Diastolic Blood Pressure:??53 mm Hg??Low ?? Oxygen Saturation:??92 %??Low ?? Studies Pending All studies ordered during this hospital stay have been completed unless listed below. Please discuss all pending results with your provider listed above in these instructions. ?? Basic Metabolic Panel?? Hold Lavender Tube (BB)?? Magnesium Level?? What to do next Instructions From Your Doctor Your liver is shutting down??rapidly due to damage from alcohol. ??You only have a few??living liver cells left,??if you continue drinking it will lead to ??from liver failure. ??Please stop drinking. ??Please follow-up with your addictions counselor outpatient.? Please follow-up with your PCP ?? please call ophthalmology office for follow up appointment.?? Information provided for the office as below. ?? Orders? 05/27/24 9:51:00 EDT?? You Need to Schedule the Following Appointments Follow Up with??Ethan Santana MD When:??Within 1-2 day: call to discuss follow up visit Where: [address] [facility], [place] [address]- Follow Up with??Rebekah Fiore MD When:??Within 1-2 day: call to discuss follow up visit Where: [address] [place] [address]- Discharge Medications ASIF DAREN :1980 Visit Date:05/21/2024 Medications: Please continue your medications until treatment is completed or stopped by your provider. Medications not listed below should be discontinued. Discuss any questions related to medications with your provider. What How Much When Instructions Next Dose New Cyclopentolate Ophthalmic (cyclopentolate 1% ophthalmic solution) 1 Drops Right eye 3 times a day Duration: 5 Days Pickup at [facility] 3 3pm 05/27 New Hydromorphone (Dilaudid 2 mg oral tablet) 2 Milligram Oral Every 6 hours as needed for Pain , Severe Duration: 3 Days Pickup at [facility] 3 last dose received 6:00am 05/27 New moxifloxacin ophthalmic (moxifloxacin 0.5% ophthalmic solution) 1 Drops Right eye Every 4 hours Duration: 3 Days Pickup at [facility] 3 2pm 05/27 New Ondansetron (ondansetron 4 mg oral tablet) 1 tab(s) Oral Every 8 hours as needed for Nausea & Vomiting Duration: 7 Days Pickup at [facility] 3 as needed Unchanged Acamprosate (acamprosate 333 mg oral delayed release tablet) 666 Milligram Oral 3 times a day with meals with meals Unchanged Albuterol (albuterol CFC free 90 mcg/ inh inhalation aerosol) 2 puff(s) Inhalation 4 times a day as needed for as needed for wheezing as needed Unchanged Ferrous Sulfate (ferrous sulfate 325 mg oral enteric coated tablet) 325 Milligram Oral Daily am 05/28 Unchanged HydrOXYzine (hydrOXYzine hydrochloride 25 mg oral tablet) 1 tab(s) Oral Twice a day as needed for anxiety as needed Unchanged Lactulose (lactulose 10 gm/ 15 ml oral syrup) 15 Milliliter Oral Twice a day as needed for as needed for constipation as needed Unchanged Magnesium Oxide (magnesium oxide 500 mg oral capsule) 1 capsule Oral Daily am 05/28 Unchanged Methadone (methadone 10 mg/ 5 mL oral solution) 75 Milliliter Oral Daily am 05/28 Unchanged Multivitamin (Multivitamin Tablet) 1 tab(s) Oral Daily am 05/28 Unchanged Pancrelipase (Creon 36,000 units oral delayed release capsule) 1 capsule Oral 3 times a day per home regimen Unchanged Pantoprazole (pantoprazole 40 mg oral delayed release tablet) 1 tab(s) Oral Daily am 05/28 Unchanged Polyethylene Glycol 3350 (polyethylene glycol 3350 oral powder for reconstitution) 17 gram Oral Daily dissolve in 4 to 8 oz of beverage. Take once daily, or up to three times daily as needed for regular soft stools ?? am 05/28 Pharmacy Information [facility] 3: [address] [place] [address] [phone] ?? What How Much When Comments Stop Taking Gabapentin (gabapentin 600 mg oral tablet) 1 tab(s) Oral 3 times a day Stop Taking Paroxetine (PARoxetine 20 mg oral tablet) 1 tab(s) Oral Daily Stop Taking Senna (senna 187 mg oral tablet) 1 tab(s) Oral Twice a day as needed for Constipation Stop Taking Sumatriptan (SUMAtriptan 50 mg oral tablet) 1 tab(s) Oral Daily as needed for for migraine headache may repeat dose after 2 hours up to a maximum of 2 ?? Stop Taking Trazodone (traZODone 50 mg oral tablet) 1 tab(s) Oral Daily at Bedtime as needed for Sleep Prescription Given During Visit Cyclopentolate Ophthalmic (cyclopentolate 1% ophthalmic solution) - 1 drops, Eye, Right, 3 times a day, # 5 mL, 0 Refills, [address] [address] [phone]?? Hydromorphone (Dilaudid 2 mg oral tablet) - 2 mg, By Mouth, Every 6 hours, # 12 tablet, 0 Refills, [address] [address] [phone]?? Ondansetron (ondansetron 4 mg oral tablet) - 1 tablet = 4 mg, By Mouth, Every 8 hours, # 21 tablet,0 Refills, [address] [address] [phone]?? moxifloxacin ophthalmic (moxifloxacin 0.5% ophthalmic solution) - 1 drops, Eye, Right, Every 4 hours, # 3 mL, 0 Refills, [address] [address] [phone]?? Laboratory Results Below is a partial list of the most recent Laboratory test results done prior to this discharge. You may have had other tests and procedures not included in this list. Please discuss all test resultswith your provider. Est Creatinine Clearance - 88.09 mL/min (05/26/2024) Ammonia Venous (05/21/2024) ???Ammonia, Venous - 51 ??mole/L BASE EXCESS POC CARTRIDGE (05/21/2024) ???Base Excess (POC) POC Cartridge - 6 Basic Metabolic Panel (05/25/2024) ???Sodium - 138 mmol/L???Potassium - 4.5 mmol/L???Chloride - 99 mmol/L???Bicarbonate Level - 30 mmol/L???Anion Gap - 9???Glucose Level - 143 mg/dL???BUN - 7 mg/dL???Creatinine-Blood - 0.65 mg/dL???Estimated GFR Creatinine - 111 ML/MIN/1.73 M2???Calcium - 9.1 mg/dL Calcium Ionized (05/21/2024) ???Calcium, Ionized pH Corrected - 1.04 mmol/L CALCIUM IONIZED POC CART (05/21/2024) ???Ionized Calcium (POC) POC Cartridge - 0.92 mmol/L CBC (05/25/2024) ???WBC - 2.8 k/mm3???RBC - 3.56 m/mm3???Hgb - 10.6 Gm/dL???Hct - 33.4 %???MCV - 93.8 femtoliters???MCH - 29.8 pg???MCHC - 31.7 g/dL???Platelet Count - 46 k/mm3???RDW-SD - 64.8 femtoliters???MPV - 10.5 femtoliters???Nucleated RBC (Automated) - 0.0 #/100 WBC'S???Abs. NRBC - 0.0 k/mm3 CBC w/ Differential (05/26/2024) ???WBC - 2.6 k/mm3???RBC - 3.53 m/mm3???Hgb - 10.7 Gm/dL???Hct - 33.6 %???MCV - 95.2 femtoliters???MCH - 30.3 pg???MCHC - 31.8 g/dL???Platelet Count - 53 k/mm3???RDW-SD - 69.0 femtoliters???MPV - 10.8 femtoliters???Nucleated RBC (Automated) - 0.0 #/100 WBC'S???Abs. NRBC - 0.0 k/mm3???Abs. Neut - 1.4 k/mm3???Abs. Lymph - 1.0 k/mm3???Abs. Custer - 0.2 k/mm3???Abs. Eo - 0.1 k/mm3???Abs. Baso - 0.0 k/mm3???Neut % - 52.7 %???Lymph % - 36.9 %???Custer % - 6.5 %???Eos % - 3.1 %???Baso % - 0.4 %???Imm Gran- 0.4 %???Abs. Imm Gran - 0.0 k/mm3 Comprehensive Metabolic Panel (05/26/2024) ???Sodium - 136 mmol/L???Potassium - 3.8 mmol/L???Chloride - 99 mmol/L???Bicarbonate Level - 30 mmol/L???Anion Gap - 7???Glucose Level - 151 mg/dL???BUN - 7 mg/dL???Creatinine-Blood - 0.69 mg/dL???Estimated GFR Creatinine - 109 ML/MIN/1.73 M2???Calcium - 8.7 mg/dL???Protein, Total - 6.3 Gm/dL???Albu min - 3.1 Gm/dL???AG Ratio - 1.0???Alkaline Phosphatase - 75 units/L???AST (SGOT) - 61 units/L???ALT (SGPT) - 24 units/L???Bilirubin, Total - 1.3 mg/dL GLUCOSE POC (05/23/2024) ???Glucose, POC - 95 mg/dL GLUCOSE POC CARTRIDGE (05/21/2024) ???Glucose (POC) POC Cartridge - 113 HEMATOCRIT POC CARTRIDGE (05/21/2024) ???Hematocrit (POC) POC Cartridge - 39 % HEMOGLOBIN POC CARTRIDGE (05/21/2024) ???Hemoglobin (POC) POC Cartridge - 13.3 Gm/dL High??Sensitivity??Troponin T (05/21/2024) ???High Sensitivity Troponin (HSTnT) - 10 ng/L HOLD GEL TUBE (05/21/2024) ???Hold Gel Top - SPECIMEN DISCARDED AFTER 1 WEEK INR (05/26/2024) ???INR - 1.6???Protime (PT) - 16.4 seconds Lactate Level (05/21/2024) ???Lactate - 5.5 mmol/L Lactic Acid Level (05/26/2024) ???Lactate - 1.1 mmol/L LIPASE (05/21/2024) ???Lipase - 27 units/L Magnesium Level (05/26/2024) ???Magnesium - 1.8 mg/dL Phosphorus Level (05/22/2024) ???Phosphorus - 2.4 mg/dL POTASSIUM POC CARTRIDGE (05/21/2024) ???Potassium (POC) POC Cartridge - 2.6 mmol/L ProBNP (05/21/2024) ???Nt-Probnp - 315 pg/mL SODIUM POC CARTRIDGE (05/21/2024) ???Sodium (POC) POC Cartridge - 142 mmol/L VBG POC CARTRIDGE (05/21/2024) ???pH Venous (POC) POC Cartridge - 7.60???pCO2 Venous (POC) POC Cartridge - 27.6 mm Hg???pO2 Venous(POC) POC Cartridge - 33 mm Hg???Est Bicarbonate (POC) POC Cartridge - 27.4 mmol/L???% O2 Sat Venous (POC) POC Cartridge - 76???Specimen Type - Blood Gas - VENOUS You will be contacted within 72 hours with your results. Allergies (NKA means No Known Allergies) Cats??(hives, rash) Compazine??(rash masking effect) Dust??(hives) LaMICtal??(rash) Problems Active Problems??(20) Abdominal pain?? Alcohol withdrawal?? Allergic reaction?? Borderline personality disorder?? Cocaine dependence in remission?? Cystic fibrosis carrier?? Eating disorder?? Hepatic steatosis?? Hip pain?? Hyperbilirubinemia?? Hypokalemia?? Lactic acid acidosis?? LGSIL (low grade squamous intraepithelial dysplasia)?? Liver cirrhosis?? Obese class I?? Obesity?? Opioid dependence?? Opioid use disorder in remission?? PTSD - Post-traumatic stress disorder?? Substance abuse in remission?? Education Materials Below is the list of Educational Leaflet Providered with your Discharge Instructions. [employer] Patient Education - Ondansetron?? [employer] Patient Education - Hydromorphone?? [employer] Patient Education - Understanding Cirrhosis?? [employer] Patient Education - Cirrhosis?? [employer] Patient Education - Hypokalemia?? [employer] Patient Education - Alcoholism: Getting Help?? [employer] Patient Education - Alcohol Abuse?? Valuables and Belongings I fully understand and agree that [facility] accepts no responsibility for all my [...] witness Date for Pt to Sign Valuables/Belongings: 05/26/24 16:02:00 ?? Other Discharge Information ? Pulmonary Rehab [...] are strongly encouraged to quit. Please call [employer] Link at [phone] or [phone] ([employer] Information TechnologyUNIVERSITY H[facility]ALS [facility] ([phone]) or log in to [email or web address] for referrals to smoking cessation programs. ?? 372 Suicide & Crisis [facility] is available 20/05 if you or someone you know needs to find a reason to keep living. By calling 569 you'll be connected to a skilled, trained counselor at a crisis center in your area. INPATIENT DISCHARGE INSTRUCTIONS SIGNATURE DAREN GUARDADO Location:[facility] Registration Date and Time:05/21/2024 20:35 EDT Primary Care Physician: Adebayo MARINELLI, Rebekah, Attending Physician: Radha MARINELLI, Lacey, I DAREN FITZGERALD, have received the above patient education materials/instructions and have verbalized understanding. If ambulance or transport services are being used I further acknowledge being given a choice of service. ?? If you need to contact me, please call me at this number: . Patient/Tobacco Shaker Name: Patient/Tobacco Shaker Signature: Relationship to Patient: Witness Name/Signature: Date: * Lora Francis RN: PERFORM Event Display: Patient Education Leaflets Authored Date: [id number] Ondansetron ?? [id number] Ondansetron Brand Name(s): Zofran??, Zofran?? ODT, Zuplenz??; also available generically WHY is this medicine prescribed? HOW should this medicine be used? Ondansetron comes as a tablet, a rapidly disintegrating (dissolving) tablet, film, and an oral solution (liquid) to take by mouth. The first dose of ondansetron is usually taken 30 minutes before thestart of chemotherapy, 1 to 2 hours before the start of radiation therapy, or 1 hour before surgery. Additional doses are sometimes taken one to three times a day during chemotherapy or radiation therapy and for 1 to 2 days after the end of treatment. Follow the directions on your prescription label carefully, and ask your doctor or pharmacist to explain any part you do not understand. Take ondans etron exactly as directed. Do not take more or less of it or take it more often than prescribed by your doctor. Do not chew the film. If you are taking the rapidly disintegrating tablet, remove the tablet from the package just beforeyou take your dose. To open the package, do not try to push the tablet through the foil backing of the blister. Instead, use dry hands to peel back the foil backing. Gently remove the tablet and immediately place the tablet on the top of your tongue. The tablet will dissolve in a few seconds and can be swallowed with saliva. Are there OTHER USES for this medicine? This medication may be prescribed for other uses. Ask your doctor or pharmacist for more information. What SPECIAL PRECAUTIONS should I follow? Before taking ondansetron, ??? tell your doctor and pharmacist if you are allergic to ondansetron, alosetron (Lotronex), dolasetron (Anzemet), granisetron (Kytril), palonosetron (Aloxi, in Akynzeo), any other medications, or any of the ingredients in ondansetron products. Ask your pharmacist for a list of the ingredients. ??? tell your doctor if you are receiving apomorphine (Apokyn). Your doctor will probably tell you notto take ondansetron if you are receiving this medication. ??? tell your doctor and pharmacist what prescription and nonprescription medications, vitamins, nutritional supplements, and herbal productsyou are taking or plan to take. Be sure to mention any of the following: certain medications for seizures such as carbamazepine (Carbatrol, Epitol, Equetro, Tegretol) or phenytoin (Dilantin); clarithromycin (Biaxin, in Prevpac); erythromycin (E.E.S., Erythrocin, others); fentanyl (Abstral, Actiq, Duragesic, Fentora, Lazanda, Onsolis, Subsys); lithium (Lithobid); medications for irregular heart beat; medications for mental illness; medications to treat migraines such as almotriptan (Axert), eletriptan (Relpax), frovatriptan (Frova), naratriptan (Amerge), rizatriptan (Maxalt), sumatriptan (Imitrex), and zolmitriptan (Zomig); methylene blue; mirtazapine (Remeron); monoamine oxidase (MAO) inhibitors including isocarboxazid (Marplan), linezolid (Zyvox), phenelzine (Nardil), selegiline (Eldepryl, Emsam, Zelapar), and tranylcypromine (Parnate); moxifloxacin (Avelox); selective serotonin reuptake inhibitors (SSRIs) such as citalopram (Celexa), escitalopram (Lexapro), fluoxetine (Prozac, Sarafem, in Symbyax), fluvoxamine (Luvox), paroxetine (Brisdelle, Paxil, Pexeva), and sertraline (Zoloft); and tramadol (Conzip, Ultram, in Ultracet). Your doctor may need to change the doses of your medications or monitor you more carefully for side effects. Many other medications may also interact with ondansetron, so be sure to tell your doctor about all the medications you are taking, even those that do not appear on this list. ??? tell your doctor if you or anyone in your family has or has ever had long QT syndrome (condition that increases the risk of developing an irregular heartbeat that may cause fainting or sudden ), or another type of irregular heart beat or heart rhythm problem, or if you have or have ever had low blood levels of magnesium or potassium in your blood, heart failure (HF; condition in which the heart cannot pump enough blood to other parts of the body), or liverdisease. ??? tell your doctor if you are , plan to become , or are breast-feeding. If you become while taking ondansetron, call your doctor. ??? if you have phenylketonuria (PKU, an inherited condition in which a special diet must be followed to prevent damage to your brainthat can cause severe intellectual disability), you should know that the orally disintegrating tablets contain aspartame that forms phenylalanine. What SPECIAL DIETARY instructions should I follow? Unless your doctor tells you otherwise, continue your usual diet. What should I do IF I FORGET to take a dose? Take the missed dose as soon as you remember it. However, if it is almost time for the next dose, skip the missed dose and continue your regular dosing schedule. Do not take a double dose to make up for a missed one. What SIDE EFFECTS can this medicine cause? Ondansetron may cause side effects. Tell your doctor if any of these symptoms are severe or do not go away: ??? headache ??? constipation ??? weakness ??? tiredness ??? chills ??? drowsiness ??? Some side effects can be serious. If you experience any of the following symptoms, call your doctor immediately or seek emergency medical treatment: ??? blurred vision or vision loss ??? rash ??? hives ??? itching ??? swelling of the eyes, face, lips, tongue, throat, hands, feet, ankles, or lower legs ??? hoarseness ??? difficulty breathing or swallowing ??? chest pain ??? shortness of breath ??? dizziness, light-headedness, or fainting ??? fast, slow or irregular heartbeat ??? agitation ??? hallucinations (seeing things or hearing voices that do not exist) ??? fever ??? excessive sweating ??? confusion ??? nausea, vomiting, or diarrhea ??? loss of coordination ??? stiff or twitching muscles ??? seizures ??? coma (loss of consciousness) Ondansetron may cause other side effects. Call your doctor if you have any unusual problems while you are taking this medication. What should I know about STORAGE and DISPOSAL of this medication? Keep this medication in the container it came in, tightly closed, and out of reach of children. Store the tablets and rapidly disintegrating tablets away from light, at room temperature or in the refrigerator. Store the solution in the bottle upright at room temperature and away from light, excess heat, and moisture (not in the bathroom). It is important to keep all medication out of sight and reach of children as many containers (such as weekly pill minders and those for eye drops, creams, patches, and inhalers) are not child-resistant and young children can open them easily. To protect young children from poisoning, always lock safety caps and immediately place the medication in a safe location ??? one that is up and away and out of their sight and reach. http://www.upandaway.org Unneeded medications should be disposed of in special ways to ensure that pets, children, and otherpeople cannot consume them. However, you should not flush this medication down the toilet. Instead,the best way to dispose of your medication is through a medicine take-back program. Talk to your pharmacist or contact your local garbage/recycling department to learn about take-back programs in your community. See the FDA's Safe Disposal of Medicines website (http://goo.gl/c4Rm4p) for more information if you do not have access to a take- back program. What should I do in case of OVERDOSE? In case of overdose, call the poison control helpline at . Information is also available online at https://www.poisonhelp.org/help. If the victim has collapsed, had a seizure, has trouble breathing, or can't be awakened, immediately call emergency services at 911. Symptoms of overdose may include: ??? sudden loss of vision for a short time ??? dizziness or lightheadedness ??? fainting ??? constipation ??? irregular heart beat What OTHER INFORMATION should I know? Keep all appointments with your doctor. Do not let anyone else take your medication. Ask your pharmacist any questions you have about refilling your prescription. It is important for you to keep a written list of all of the prescription and nonprescription ([id number]) medicines you are taking, as well as any products such as vitamins, minerals, or otherdietary supplements. You should bring this list with you each time you visit a doctor or if you areadmitted to a hospital. It is also important information to carry with you in case of emergencies. This report on medications is for your information only, and is not considered individual patient advice. Because of the changing nature of drug information, please consult your physician or pharmacist about specific clinical use. The [employer] represents that the information provided hereunder was formulated with a reasonable standard of care, and in conformity with professional standards in the field. The [employer] makes no representations or warranties, express or implied, including, but not limited to, any implied warranty of merchantability and/or fitness for a particular purpose, with respect to such information and specifically disclaims all such warranties. Users are advised that decisions regarding drug therapy are complex medical decisions requiring the independent, informed decision of an appropriate health manager medicare, and the information is provided for informational purposes only. The entire monograph for a drug should be reviewed for a thorough understanding of the drug's actions, uses and side effects. The [employer] does not endorse or recommend the use of any drug.The information is not a substitute for medical care. AHFS?? Patient Medication Information???. ?? Copyright, 2023. [employer]??, [address], [address], [place], [place]. All Rights Reserved. Duplication for commercial use must be authorized by [facility]. Selected Revisions: November 11, 2021. AHFS?? Patient Medication Information???. ?? Copyright, 2023 ?? * Lora Francis RN: PERFORM Event Display: Patient Education Leaflets Authored Date: [id number] Hydromorphone ?? [id number] Hydromorphone Brand Name(s): Dilaudid??, Exalgo??, Palladone??; also available generically IMPORTANT WARNING: Hydromorphone may be habit forming, especially with prolonged use. Take hydromorphone exactly as directed. Do not take more of it, take it more often, or take it in a different way than directed by your doctor. While you are taking hydromorphone, discuss with your health care provider your pain treatment goals, length of treatment, and other ways to manage your pain. Tell your doctor if you or anyone in your family drinks or has ever drunk large amounts of alcohol, uses or has ever used street drugs, or has overused prescription medications, or has had an overdose, or if you have or have everhad depression or another mental illness. There is a greater risk that you will overuse hydromorphone if you have or have ever had any of these conditions. Talk to your health care provider immediately and ask for guidance if you think that you have an opioid addiction or call the U.S. Substance Abuse and Mental Health Services Administration (SAMHSA) National Helpline at 5-925-676-YPWG. Hydromorphone may cause serious or life-threatening breathing problems, especially during the first24 to 72 hours of your treatment and any time your dose is increased. Your doctor will monitor you carefully during your treatment. Tell your doctor if you have slowed breathing or have or have ever had asthma. Your doctor will probably tell you not to take hydromorphone. Also tell your doctor if you have or have ever had lung disease such as chronic obstructive pulmonary disease (a group of diseases that affect the lungs and airways), a head injury, a brain tumor, or any condition that increases the pressure in your brain. The risk that you will develop breathing problems may be higher if you are an older adult, or are weakened or malnourished due to disease. If you experience any of the following symptoms, call your doctor immediately or get emergency medical treatment: slowed breathing, long pauses between breaths, or shortness of breath. Taking certain medications during your treatment with hydromorphone may increase the risk that you will develop serious or life-threatening breathing problems, sedation, or coma. Tell your doctor andpharmacist what prescription and nonprescription medications, vitamins, and nutritional supplementsyou are taking or plan to take. Your doctor may need to change the doses of your medications and will monitor you carefully. If you use hydromorphone with other medications and you develop any of thefollowing symptoms, call your doctor immediately or seek emergency medical care: unusual dizziness,lightheadedness, extreme sleepiness, slowed or difficult breathing, or unresponsiveness. Be sure that your caregiver or family members know which symptoms may be serious so they can call the doctor or emergency medical care if you are unable to seek treatment on your own. Drinking alcohol, taking prescription or nonprescription medications that contain alcohol, or usingstreet drugs during your treatment with hydromorphone increases the risk that you will experience serious, life-threatening side effects. Do not drink alcohol, take prescription or nonprescription medications that contain alcohol, or use street drugs during your treatment. Do not allow anyone else to take your medication. Hydromorphone may harm or cause to other people who take your medication, especially children. Keep hydromorphone in a safe place so that no one else can take it accidentally or on purpose. Be especially careful to keep hydromorphone out of the reach of children. Keep track of how many tablets or how much liquid is left so you will know if any medication is missing. Dispose of unwanted or no longer needed tablets, extended-release tablets,and liquid by flushing the medication down the toilet. (See STORAGE and DISPOSAL.) Tell your doctor if you are or plan to become . If you take hydromorphone regularly during your , your baby may experience life- threatening withdrawal symptoms after . Tell your baby's doctor right away if your baby experiences any of the following symptoms: irritability, hyperactivity, abnormal sleep, high-pitched cry, uncontrollable shaking of a part of the body, vomiting, diarrhea, or failure to gain weight. Your doctor or pharmacist will give you the spindle repairer's patient information sheet (Medication Guide) when you begin your treatment with hydromorphone and each time you fill your prescription. Readthe information carefully and ask your doctor or pharmacist if you have any questions. You can alsovisit the Food and Drug Administration (FDA) website (http://www.fda.gov/Drugs/DrugSafety/led058331.htm) or the spindle repairer's website to obtain the Medication Guide. Talk to your doctor about the risks of taking hydromorphone. WHY is this medicine prescribed? Hydromorphone immediate-release tablets and oral solution are used as a short- term treatment to relieve severe pain (pain that begins suddenly, has a specific cause, and is expected to go away when the cause of the pain is healed) in people who are expected to need an opioid pain medication and whose pain cannot be controlled by the use of alternative pain medications. Hydromorphone extended-release tablets are used to relieve severe and persistent pain in people who are expected to need pain medication around the clock for a long time and who cannot be treated with other medications. Hydromorphone extended-release tablets should only be used to treat people who are tolerant (used to the eff ects of the medication) to opioid medications because they have taken this type of medication for at least one week and should not be used to treat mild or moderate pain, short-term pain, pain after an operation or medical or dental procedure, or pain that can be controlled by medication that is taken as needed. Hydromorphone is in a class of medications called opiate (narcotic) analgesics. It works by changing the way the brain and nervous system respond to pain. HOW should this medicine be used? Hydromorphone comes as a solution (liquid), an immediate-release tablet, and an extended-release (long-acting) tablet to take by mouth. The liquid is usually taken every 3 to 6 hours and the tablets are usually taken every 4 to 6 hours. The extended-release tablets are taken once daily with or without food. Take hydromorphone at around the same time(s) every day. Follow the directions on your prescription label carefully, and ask your doctor or pharmacist to explain any part you do not understand. Take hydromorphone exactly as directed. Swallow the extended-release tablets whole. Do not split, chew, dissolve, or crush them. If you swallow broken, chewed, crushed, or dissolved tablets you may receive too much hydromorphone at once instead of receiving the medication slowly over time. This may cause serious breathing problems or . If you are taking hydromorphone oral solution, use a dose-measuring spoon or cup to measure the correct amount of liquid for each dose, not a regular household spoon. Mix your dose with half a glass of water and swallow the mixture. Ask your doctor or pharmacist if you need help getting or using a measuring device, Your doctor may adjust your dose of hydromorphone during your treatment, depending on how well yourpain is controlled and on the side effects that you experience. Talk to your doctor about how you are feeling during your treatment with hydromorphone. Tell your doctor if you feel that your pain is not controlled or if your pain increases, becomes worse, or if you have new pain or an increased sensitivity to pain during your treatment with hydromorphone. Do not take more of it or take it more often than prescribed by your doctor. Do not stop taking hydromorphone without talking to your doctor. Your doctor will probably decreaseyour dose gradually. If you suddenly stop taking hydromorphone, you may experience withdrawal symptoms including restlessness, teary eyes, runny nose, yawning, sweating, chills, hair standing on end,muscle or joint pain, widening of the pupils (black circles in the middle of the eyes), irritability, anxiety, backache, weakness, stomach cramps, difficulty falling asleep or staying asleep, nausea,loss of appetite, vomiting, diarrhea, fast breathing, or fast heartbeat. Are there OTHER USES for this medicine? This medication may be prescribed for other uses; ask your doctor or pharmacist for more information. What SPECIAL PRECAUTIONS should I follow? Before taking hydromorphone, ??? tell your doctor and pharmacist if you are allergic to hydromorphone, any other medications, sulfites, or any of the ingredients in hydromorphone tablets, solution, or extended-release tablets. Ask your pharmacist or check the Medication Guide for a list of the ingredients. ??? tell your doctoror pharmacist if you are taking the following medications or have stopped taking them within the past two weeks: isocarboxazid (Marplan), linezolid (Zyvox), methylene blue, phenelzine (Nardil), selegiline (Emsam, Zelapar), or tranylcypromine (Parnate). ??? tell your doctor if you have any of the con ditions listed in the IMPORTANT WARNING section or paralytic ileus (condition in which food does not move through the intestines), or a blockage in the stomach or intestines. Your doctor may tell younot to take hydromorphone. ??? if you will be taking the extended-release tablets, also tell your doctor if you have ever had surgery that caused a change in the way food moves through your stomach or intestines or if you have any condition that cause narrowing of the esophagus (tube that carries food from the mouth to the stomach), stomach, or intestines such as cystic fibrosis (a condition thatcauses the body to produce thick, sticky mucus that may clog the pancreas, lungs, and other parts of the body), peritonitis (inflammation of the lining of the abdomen (stomach area), Meckel's diverticulum (a bulge in the lining of the small intestine that is present at ), chronic intestinal pseudo-obstruction (condition in which the muscles in the intestine do not move food smoothly through the intestine), or inflammatory bowel disease (IBD; a group of conditions that cause inflammation ofthe lining of the intestine). Your doctor may tell you not to take hydromorphone extended- release tablets. ??? tell your doctor if you have or have ever had low blood pressure; adrenal insufficiency (condition in which the adrenal glands do not produce enough of certain hormones needed for important body functions); seizures; diabetes; any condition that causes difficulty urinating, such as an enlarged prostate (a male reproductive gland) or urethral stricture (blockage of the tube that allows urine to leave the body); or gallbladder, pancreas, liver, thyroid, or kidney disease. ??? tell yourdoctor if you are . You should not breastfeed while you are taking hydromorphone. Hydromorphone can cause shallow breathing, difficulty or noisy breathing, confusion, more than usual sleepiness, trouble , or limpness in breastfed infants. ??? you should know that this medication may decrease fertility in men and women. Talk to your doctor about the risks of taking hydromorphone. ??? if you are having surgery, including dental surgery, tell the doctor or dentist that you are taking hydromorphone. ??? you should know that hydromorphone may make you drowsy. Do not drivea car or operate machinery until you know how this medication affects you. ??? you should know thathydromorphone may cause dizziness, lightheadedness, and fainting when you get up too quickly from alying position. To avoid this problem, get out of bed slowly, resting your feet on the floor for a few minutes before standing up. ??? you should know that hydromorphone may cause constipation. Talk to your doctor about changing your diet or using other medications to prevent or treat constipation while you are taking hydromorphone. What SPECIAL DIETARY instructions should I follow? Unless your doctor tells you otherwise, continue your normal diet. What should I do IF I FORGET to take a dose? If you are taking the tablets or solution, take the missed dose as soon as you remember it. However, if it is almost time for the next dose, skip the missed dose and continue your regular dosing schedule. Do not take a double dose to make up for a missed one. If you are taking the extended-release tablets, skip the missed dose and continue your regular dosing schedule. Do not take more than one dose of the extended-release tablets in 24 hours. What SIDE EFFECTS can this medicine cause? Hydromorphone may cause side effects. Tell your doctor if any of these symptoms are severe or do not go away: ??? headache ??? difficulty falling asleep or staying asleep ??? dry mouth ??? lightheadedness ??? drowsiness ??? increased sweating ??? muscle, back or joint pain ??? stomach pain ??? mood changes ??? anxiety ??? flushing ??? itching ??? depression ??? Some side effects can be serious. If you experience any of these symptoms or those listed in the IMPORTANT WARNING section, call your doctor immediately or get emergency medical treatment: ??? rash; hives; hoarseness; difficulty breathing or swallowing; or swelling of the face, mouth, tongue or throat ??? swelling of the arms, hands, feet, ankles, or lower legs ??? agitation, hallucinations (seeing things or hearing voices that do not exist), fever, sweating, confusion, fast heartbeat, shivering, severe muscle stiffness or twitching, loss of coordination, or diarrhea ??? nausea, vomiting, loss of appetite, weakness, or dizziness ??? inability to get or keep an erection ??? irregular menstruation ??? decreased sexual desire ??? seizures??? chest pain ??? extreme drowsiness ??? fainting Hydromorphone may cause other side effects. Call your doctor if you have any unusual problems whileyou are taking this medication. If you experience a serious side effect, you or your doctor may send a report to the Food and Drug Administration's (FDA) MedWatch Adverse Event Reporting program online (http://www.fda.gov/Safety/MedWatch) or by phone ( ). What should I know about STORAGE and DISPOSAL of this medication? Keep this medication in the container it came in, tightly closed, out of reach of children, and in a location that is not easily accessible by others, including visitors to the home. Store it at roomtemperature and away from excess heat and moisture (not in the bathroom). You must immediately dispose of any medication that is outdated or no longer needed through a medicine take-back program. If you do not have a take-back program nearby or one that you can access promptly, flush any hydromorphone liquid or tablets that are outdated or no longer needed down the toilet. Talk to your pharmacistabout the proper disposal of your medication. It is important to keep all medication out of sight and reach of children as many containers (such as weekly pill minders and those for eye drops, creams, patches, and inhalers) are not child-resistant and young children can open them easily. To protect young children from poisoning, always lock safety caps and immediately place the medication in a safe location ??? one that is up and away and out of their sight and reach. http://www.upandaway.org What should I do in case of OVERDOSE? In case of overdose, call the poison control helpline at . Information is also available online at https://www.poisonhelp.org/help. If the victim has collapsed, had a seizure, has trouble breathing, or can't be awakened, immediately call emergency services at 194. While taking hydromorphone, you should talk to your doctor about having a rescue medication called naloxone readily available (e.g., home, office). Naloxone is used to reverse the life-threatening effects of an overdose. It works by blocking the effects of opiates to relieve dangerous symptoms caused by high levels of opiates in the blood. Your doctor may also prescribe you naloxone if you are living in a household where there are small children or someone who has abused street or prescription drugs. Ask your doctor about other ways that you can obtain naloxone (directly from a pharmacy or aspart of a community based program). You should make sure that you and your family members, caregivers, or the people who spend time with you know how to recognize an overdose, how to use naloxone, and what to do until emergency medical help arrives. Your doctor or pharmacist will show you and your family members how to use the medication. Ask your pharmacist for the instructions or visit the spindle repairer's website to get the instructions. If symptoms of an overdose occur, a friend or family member should give the first dose of naloxone, call 911 immediately, and stay with you and watch you closely until emergency medical help arrives. Your symptoms may return within a few minutes after you receive naloxone. If your symptoms return, the person should give you another dose of naloxone. Additional doses may be given every 2 to 3 minutes, if symptoms return before medical help arrives. Symptoms of overdose may include the following: ??? slow or shallow breathing ??? difficulty breathing ??? sleepiness ??? unable to respond or wakeup ??? muscle weakness ??? cold, clammy skin ??? narrowing or widening of the pupils (dark circles in the middle of the eyes) ??? slowed heartbeat ??? dizziness ??? fainting ??? unusual snoring What OTHER INFORMATION should I know? Keep all appointments with your doctor and laboratory. Your doctor may order certain lab tests to check your body's response to hydromorphone. Before having any laboratory test (especially those that involve methylene blue), tell your doctor and the laboratory personnel that you are taking hydromorphone. If you are taking the extended-release tablet and you have any x-ray tests, tell the process engineering technician that you are taking this medication. This prescription is not refillable. If you continue to have pain after you finish the hydromorphone, call your doctor. If you are taking the extended release tablets, you may see the tablet shell in your stool. This isnormal and does not mean that you did not receive the full dose of medication. It is important for you to keep a written list of all of the prescription and nonprescription (qyeg-gpt-[id number]) medicines you are taking, as well as any products such as vitamins, minerals, or otherdietary supplements. You should bring this list with you each time you visit a doctor or if you areadmitted to a hospital. It is also important information to carry with you in case of emergencies. This report on medications is for your information only, and is not considered individual patient advice. Because of the changing nature of drug information, please consult your physician or pharmacist about specific clinical use. The [employer] [employer] represents that the information provided hereunder was formulated with a reasonable standard of care, and in conformity with professional standards in the field. The [employer] [employer] makes no representations or warranties, express or implied, including, but not limited to, any implied warranty of merchantability and/or fitness for a particular purpose, with respect to such information and specifically disclaims all such warranties. Users are advised that decisions regarding drug therapy are complex medical decisions requiring the independent, informed decision of an appropriate health manager medicare, and the information is provided for informational purposes only. The entire monograph for a drug should be reviewed for a thorough understanding of the drug's actions, uses and side effects. The [employer] does not endorse or recommend the use of any drug.The information is not a substitute for medical care. AHFS?? Patient Medication Information???. ?? Copyright, 2023. The [employer]??, [address], [address], [place], [place]. All Rights Reserved. Duplication for commercial use must be authorized by [facility]. Selected Revisions: March 11, 2023. AHFS?? Patient Medication Information???. ?? Copyright, 2023 ?? * Lora Francis RN: PERFORM Event Display: Patient Education Leaflets Authored Date: [id number] Understanding Cirrhosis ?? 6[address]75 Understanding Cirrhosis Cirrhosis is a lifelong (chronic) [...] theblood. The liver is part of the blood- clotting process. ?? Causes of cirrhosis The causes [...] you ?? Last Reviewed Date: 2023 ?? [employer]. All rights reserved. This information is not intended as a substitute for professional medical care. Always follow your healthcare professional's instructions. ?? Patient Care team information Care Team Personnel Name: Melva Ochoa RN Position: S RN Member Role: Primary Care Nurse Name: Tiffanie Fall RN Position: S RN Member Role: Primary Care Nurse Name: Anne Chadwick RN Position: S RN Member Role: Primary Care Nurse Name: Lucita Victoria Position: S RN Supv Member Role: Primary Care Nurse Name: Shani Miguel RN Position: S RN Member Role: Primary Care Nurse Name: Mateus Vu RN Position: S RN Member Role: Primary Care Nurse Name: Trev Avendaño RN Position: S RN Member Role: Primary Care Nurse Name: Hazel Rivero MD Position: [facility] PUBLIC SAFETY DIRECTOR MD Member Role: [employer] PUBLIC SAFETY DIRECTOR Physician Address: Address: [address] [place] [address] [place] [address]- Name: Linsey Mcmullen RN Position: S RN Member Role: Primary Care Nurse Name: Angela Almaguer RN Position: S RN Member Role: Primary Care Nurse Name: Rebekah Fiore MD Position: Reference Physician Member Role: PCP Address: Address: [address] [place] [address]- Name: Digna Roque RN Position: S RN [...] Care Nurse Name: Terry Sanchez RN Position: S RN Member Role: Primary Care Nurse Care Team Related Persons Name: JUAN RAMON FITZGERALD Address: [facility] [address] [place] [address] Name: LOGA PRINGLE Address: home [address] [place] [address] [place] [address] Name: NICK POON
--- OUTSIDE RECORDS SUMMARY | 2024-09-25 19:01 | XMS_ITS | Continuity of Care Document ---
Author Organization [facility] Address [address], [address] [place] [address]- Care Team Providers Care Bottom Liner Name Role Phone Flores MARINELLI, Tony Parekh Primary Care Physician Encounter [facility] [place] Date(s): 11/29/20 - 12/29/20 [facility] [address] [place] [address]- Allergies, Adverse Reactions, Alerts Substance Reaction Severity [...] Active PTSD - Post-traumatic stress disorder(Confirmed) Active Social History Social History Type Response Smoking Status Current every day dora cevallos; Type: Cigarettes; Other: 1 pack a week; entered on: 02/03/18 Sex
--- OUTSIDE RECORDS SUMMARY | 2024-09-25 19:01 | XMS_ITS | Continuity of Care Document ---
Author Organization [facility] Address [address] [place] [address]- Care Team Providers Care Radio Artist Name Role Phone Rebekah Fiore MD Primary Care Physician Encounter [facility] [place] Date(s): 04/28/24 - 05/28/24 [facility] [address] [place] [address]- Attending Physician: Yaz Troncoso Admitting Physician: AdmYaz rosenthal Referring Physician: Admtr, Ar8 Allergies, Adverse Reactions, Alerts Substance Reaction Severity [...] 0 Refills, Maintenance, 05/03/24 10:34:00 EDT, [facility], Partial fill upon patient request if the prescription is for a schedule II opioid drug., 163, cm, 05/03/24 5:31:0... Start Date: 05/03/24 Status: Ordered albuterol CFC free 90 mcg/inh inhalation aerosol 2, puffs, Inhalation, 4 times a day, PRN, # 6.7 Gm, Refills 0, Tot. Refills 0, Maintenance, 11/10/23 16:46:00 EST, Aerosol, Route to Pharmacy Electronically, [id number], [facility]/pharmacy #[id number], 162, cm, 11/10/23 13:45:00 EST, Hei... Start Date: 11/10/23 Status: Ordered Creon 36,000 units oral delayed release capsule 1 capsule, By Mouth, 3 times a day, # 90 capsule, 0 Refills, Maintenance, 05/03/24 10:34:00 EDT, [facility] fill upon patient request if the prescription is for a schedule II opioid drug., 1 capsule By Mouth 3 times a day, 163,... Start Date: 05/03/24 Status: Ordered cyclopentolate 1% ophthalmic solution 1 drops, Eye, Right, 3 times a day, # 5 mL, 0 Refills, Maintenance, 05/27/24 9:45:00 EDT, Ophth Solution, [facility] 3, Partial fill upon patient request if [...] 05/30/24 9:52:00 EDT, 05/27/24 9:52:00 EDT, Tablet, [facility], Partial fill upon patient request if the prescription is for a schedule II opio... Start Date: 05/27/24 Stop Date: 05/30/24 Status: Ordered ferrous sulfate 325 mg oral enteric coated tablet 325 mg, By Mouth, Daily, # 30 each, Refills 0, Tot. Refills 0, Maintenance, 05/03/24 10:34:00 EDT, Route to Pharmacy Electronically, [facility], Partial fill upon patient request [...] 9:46:00 EDT, 05/27/24 9:46:00 EDT, [facility]hth [facility], Partial fill upon patient [...] 0 Refills, Maintenance, 05/27/24 9:47:00 EDT, Tablet, [facility], Partial fill upon patient request [...] Refills, Maintenance, 05/03/24 10:33:00 EDT, REC Powder, [facility], Partial fill upo... Start Date: [...] 30 days ago entered on: 03/10/24 Sex Patient Care team information Care Team [...] Care Nurse Name: Hazel Rivero MD Position: [facility] OPTICAL SALES ASSOCIATE MD Member Role: [employer] OPTICAL SALES ASSOCIATE Physician Address: Address: [address] [place] [address] [place] [address]- Name: Linsey Mcmullen RN Position: S RN Member Role: Primary Care Nurse Name: Angela Almaguer RN Position: S RN Member Role: Primary Care Nurse Name: Rebekah Fiore MD Position: Reference Physician Member Role: PCP Address: Address: [address] [place] [id number]- Name: Digna Roque RN Position: S RN Member Role: Primary Care Nurse Name: Klever Roblero RN Position: S RN Member Role: Primary Care Nurse Name: Cynthia Steven RN Position: [facility] RN Supv Member Role: Primary Care Nurse Name: Seun Segura RN Position: S RN Member Role: Primary Care Nurse Name: Jerrica Melton RN Position: S RN Member Role: Primary Care Nurse Name: Terry Sanchez RN Position: S RN Member Role: Primary Care Nurse Care Team Related Persons Name: JUAN RAMON GOLD Address: home [address] [place] [address] Name: OLGA PRINGLE Address: [address] [address] Name: NICK POON
--- OUTSIDE RECORDS SUMMARY | 2024-09-25 19:01 | XMS_ITS | Continuity of Care Document ---
Author Organization 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 Role Phone Rebekah Fiore MD Primary Care Physician Encounter [facility] [place] Date(s): 08/07/24 - 08/15/[address] [address]- Encounter Diagnosis GI bleed(Final) - 08/09/24 Alcohol withdrawal(Final) - 08/09/24 Alcohol withdrawal(Final) - 08/07/24 GI bleed(Final) - 08/07/24 Discharge Disposition: A-D/C Home Attending Physician: Salvador Florentino DO Admitting Physician: Clara Edwards DO Referring Physician: Not on Staff, Referring MD [...] acamprosate 333 mg oral delayed release tablet 1 tablet = 333 mg, By Mouth, 3 times a day, # 90 tablet, 0 Refills, Maintenance, 08/07/24 21:27:00 EDT, EC Tablet, Partial fill upon patient request if the prescription is for a schedule II opioid drug. Start Date: 08/07/24 Status: Ordered albuterol CFC free 90 mcg/inh inhalation aerosol 2, puffs, Inhalation, 4 times a day, PRN, # 6.7 Gm, Refills 0, Tot. Refills 0, Maintenance, 08/15/24 11:02:00 EDT, Aerosol, Route to Pharmacy Electronically, [id number], [facility] 3, 163, cm, 08/15/24 7:50:00 EDT... Start Date: 08/15/24 Status: Ordered Creon 36,000 units oral delayed release capsule 1 capsule, By Mouth, 3 times a day, with each meal and snack, # 90 capsule, 0 Refills, Maintenance,08/15/24 11:05:00 EDT, CR Capsule, [facility] 3, Partial fill upon patient request if the prescription is for a schedule II opioid drug., 1... Start Date: 08/15/24 Status: Ordered cyclopentolate 1% ophthalmic solution 1 drops, Eye, Right, 3 times a day, # 5 mL, 0 Refills, Maintenance, 05/27/24 9:45:00 EDT, Ophth Solution, [facility] 3, Partial fill upon patient request if the prescription is for a schedule II opioid drug., 1 drops Eye, Right 3 times a d... Start Date: 05/27/24 Stop Date: 06/01/24 Status: Ordered docusate sodium 100 mg oral capsule 100 mg, 1, capsule, By Mouth, Daily, PRN, # 30 capsule, Refills 2, Tot. Refills 2, Maintenance, Constipation, 08/14/24 16:34:00 EDT, Route to Pharmacy Electronically, [facility], Partial fill upon patient request if the prescription is f... Start Date: 08/14/24 Stop Date: 11/12/24 Status: Ordered ferrous sulfate 325 mg oral enteric coated tablet 325 mg, 1, tablet, By Mouth, Daily, # 30 tablet, Refills 0, Tot. Refills 0, Maintenance, 08/15/24 11:02:00 EDT, Route to Pharmacy Electronically, [facility], Partial fill upon patient request if the prescription is for a schedule II opio... Start Date: 08/15/24 Status: Ordered gabapentin 300 mg oral capsule 600 mg, Capsule, By Mouth, 08/15/24 9:00:00 EDT Start Date: 08/15/24 Stop Date: 08/15/24 Status: Completed hydrOXYzine hydrochloride 25 mg oral tablet 1 tablet = 25 mg, By Mouth, 2 times a day, PRN anxiety, # 30 tablet, 0 Refills, Acute 09/15/24 11:03:00 EST, 08/15/24 11:03:00 EDT, Tablet, [facility], Partial fill upon patient requestif the prescription is for a schedule II opioid chalino... Start Date: 08/15/24 Stop Date: 09/15/24 Status: Ordered lactulose 10 gm/15 ml oral syrup 15 mL = 10 Gm, By Mouth, 2 times a day, PRN as needed for constipation, # 450 mL, 2 Refills, Acute 10/15/24 11:04:00 EST, 08/15/24 11:04:00 EDT, Syrup, [facility], Partial fill upon patient request if the prescription is for a schedule I... Start Date: 08/15/24 Stop Date: 10/15/24 Status: Ordered magnesium oxide 500 mg oral [...] Methadone Liquid 150 mg, Solution, By Mouth, 08/15/24 9:00:00 EDT Start Date: 08/15/24 Stop Date: 08/15/24 Status: Completed Multivitamin Tablet 1 tablet, By Mouth, Daily, 0 Refills, Maintenance, 11/30/23 22:01:00 EST, Tablet, Partial fill uponpatient request if the prescription is for a schedule II opioid drug. Start Date: 11/30/23 Status: Ordered pantoprazole 40 mg oral delayed release tablet 1 tablet = 40 mg, By Mouth, Daily, # 30 tablet, 0 Refills, Maintenance, 08/15/24 11:05:00 EDT, EC Tablet, 163, cm, 08/15/24 7:50:00 EDT, Height, 82.7, kg, 08/07/24 21:16:00 EDT, Dry Weight Start Date: 08/15/24 Status: Ordered polyethylene glycol 3350 oral powder for reconstitution = 17 Gm, By Mouth, Daily, dissolve in 4 to 8 oz of beverage. Take once daily, or up to three times daily as needed for regular soft stools, # 250 Gm, 1 Refills, Maintenance, 08/14/24 16:34:00 EDT, REC Powder, [facility], Partial fill upo... Start Date: 08/14/24 Status: Ordered Problem List Condition Confirmation Course [...] Exam Date Time Procedure Performing Provider Status 08/14/24 10:42 AM Abdomen AP Lisa Mcknight; Auth (Verified) Notes: (Abdomen AP) Reason For Exam: Constipation RESULT: XR Abdomen AP XR Abdomen AP 2 view INDICATION/CLINICAL QUESTION: Reason: Constipation; Clinical Question(s): Obstruction COMPARISON: None FINDINGS: Nonobstructive bowel gas pattern. Moderate stool burden in the colon. No supine evidence of pneumoperitoneum. No organomegaly, masses or calcifications. No acute bone findings. Cholecystectomy clips. IMPRESSION: Moderate colonic stool burden. No convincing evidence of obstruction. WSN: [id number] Ordering Physician: Salvador Florentino Dictated By: Jerry Mitchell MD Dictated Date/Time: 08/14/24 5:10 pm Reviewed By: Jerry Mitchell MD Signed By: Jerry Mitchell MD Signed Date/Time: 08/14/24 5:10 pm Transcribed By: DAMI Transcribed Date/Time: 08/14/24 5:08 pm * Exam Date Time Procedure Performing Provider Status 08/10/24 5:59 PM US Liver Bronwny Bentley; Auth ( Verified) Notes: (US Liver) Reason For Exam: elevated liver enzymes, thrombocytopenia in alcohol use disorder. rule out hepatitis cirrhosis;Other: RESULT: US Liver US Liver Reason: elevated liver enzymes, thrombocytopenia in alcohol use disorder. rule out hepatitis, cirrhosis; Clinical Question(s): Cirrhosis COMPARISON: MRI abdomen 05/23/2024, CT abdomen and pelvis 05/21/2024. IMAGING TECHNIQUE: Grayscale and color Doppler ultrasound examination of the liver. FINDINGS: Liver: Coarse hepatic echotexture and heterogenously echogenic parenchyma. There is an echogenic lesion with irregular border in the right lobe measuring 3.9 x 2.3 x 2.2 cm, previously characterized on MRI as nodular focal fat deposition. Nodular hepatic contour. Main portal vein patent with normalhepatopetal direction of flow. Biliary Tree: No intrahepatic or extrahepatic bile duct dilation is identified. Common duct: 0.4 cm. IMPRESSION: 1. Echogenic lesion within the right lobe representing focal fatty infiltration, previously characterized on MRI. No suspicious lesion. 2. Cirrhotic morphology. I have personally reviewed the images and I agree with this report. WSN: [id number] Ordering Physician: Chavze Dickinson Dictated By: Raul Mckeon DO Dictated Date/Time: 08/11/24 9:19 am Reviewed By: Palmer Torres MD Signed By: Palmer Torres MD Signed Date/Time: 08/11/24 9:24 am Transcribed By: DAMI Transcribed Date/Time: 08/11/24 8:35 am Vital Signs Most recent to oldest [Reference Range]: 1 2 3 Height 163 cm (08/15/24 7:50 AM) 163 cm (08/15/24 1:01 AM) 163 cm (08/14/24 8:04 PM) Weight 86.8 kg (08/15/24 5:00 AM) 86.7 kg (08/14/24 5:37 AM) 86.0 kg (08/13/24 5:30 AM) Oxygen Saturation [94-100 %] 93 % *L* (08/15/24 7:50 AM) 94 % (08/15/24 1:01 AM) 95 % (08/14/24 8:04 PM) Pulse Rate [55-90 bpm] 67 bpm (08/15/24 7:50 AM) 66 bpm (08/15/24 1:01 AM) 75 bpm (08/14/24 8:04 PM) Body Mass Index [18.5-24.99 kg/m2] 31.13 kg/m2 *>HHI* (08/09/24 5:42 AM) 31.13 kg/m2 *>HHI* (08/08/24 9:39 AM) 31.13 kg/m2 *>HHI* (08/07/24 9:16 PM) Blood Pressure [90-138/55-84 mm Hg] 105/67mm Hg (08/15/24 7:50 AM) 103/65mm Hg (08/15/24 1:01 AM) 104/61mm Hg (08/14/24 8:04 PM) Respiratory Rate [16-30 br/min] 18 br/min (08/15/24 10:09 AM) 18 br/min (08/15/24 10:07 AM) 18 br/min (08/15/24 7:50 AM) Temperature [96.8-100.4 DegF] 99.4 DegF (08/15/24 7:50 AM) 99.2 DegF (08/15/24 1:01 AM) 98.6 DegF (08/14/24 8:04 PM) Liters per Minute 2 L/min (08/14/24 1:31 AM) 2 L/min (08/13/24 7:40 PM) 2 L/min (08/13/24 2:18 AM) Mode of Delivery (Oxygen) Room air (08/15/24 7:50 AM) Room air (08/15/24 1:01 AM) Room air (08/14/24 8:04 PM) Blood pressure sites Arm, right (08/15/24 7:50 AM) Arm, right (08/15/24 1:01 AM) Arm, right (08/14/24 8:04 PM) Temperature Route Oral (08/15/24 7:50 AM) Temporal (08/15/24 1:01 AM) Temporal (08/14/24 8:04 PM) Dry Weight 82.7 kg (08/07/24 9:16 PM) Weight Obtained Via Bed scale (08/15/24 5:00 AM) Bed scale (08/14/24 5:37 AM) Bed scale (08/13/24 5:30 AM) Social History Social History Type Response Smoking Status Former smoker, quit more than 30 days ago entered on: 03/10/24 Sex Clinical Note * Event Display: GG EGD Please click on pdf link to open report Admission evaluation note * Khushbu MARINELLI, Abigail Mcdaniel: MODIFY, PERFORM, MODIFY Event Display: Admission Note Authored Date: Patient: ??DAREN FITZGERALD ? Age:??44 Years?Sex:??Female?:??1980?? Chief Complaint/Reason for Consultation Pt coming from home with c/o bright red emesis for the past couple months experiencing weakness, hx etoh , last drink yesterday last night, just recently began drinking again. Denies hx seizures. Pt denies abdominal pain. Pt denies blood thinners History of Present Illness 43-year-old female with PMH of alcoholic liver cirrhosis, alcohol use disorder, chronic pancreatitis, opiate use disorder on methadone, anxiety came to the ED with complaints of epigastric pain and ongoing bright red emesis for months. ?? Patient's medical chart reviewed, seen and examined at bedside.?? Patient complains of severe epigastric abdominal pain since morning and also having ongoing bright red blood emesis which has been going on for more than a month.?? Does endorses large amounts of blood in emesis.?? Denies any hematochezia/melena or bleeding from any other site.?? Patient was abstinent for alcohol for more than 6 months but started drinking for the last 1 month due to increased stressors in life.?? Denies having any fever, sore throat, runny nose, chest pain, shortness of breath, palpitations, diarrhea, constipation, dysuria.?? Patient also complains of bilateral eye irritability/burning which is also going ondoes endorses crusting in the mornings and slight watering.?? Denies any black spots, does endorsesworsening blurriness of the vision used to take some eyedrops which she has she was not able to do due to insurance issues.?? Patient states that she has not able to take her anxiety medications alsodue to insurance issues as she changed insurance and just received her new card in the mail today. ?? Initially in the ED patient was afebrile, HR 94, RR 18, BP 114/80, saturation 98% on room air.??WBC 2.5, Hgb 11.2, PLT 45, electrolytes normal, BUN/creatinine/0.7, blood glucose 87, mag 1.4, calcium 8.3, AST/ALT 149/83, T. bili 2.9, lactate 2.4, ethanol 186.?? Patient actively withdrawing and will be admitted to inpatient medicine service for further management.?? She received clonidine, folic acid, magnesium, morphine, pantoprazole, thiamine and 81 in the ED along with 1 L of fluid bolus. Review of Systems All systems reviewed and are negative except as mentioned in HPI Objective Measurements?? Height: 163 cm (08/07/24) Weight: 82.7 kg (08/07/24) Dry Weight: 82.7 kg (08/07/24) Body Mass Index:??31.13 kg/m2??Critical (08/07/24) ? Vital Signs?? Temperature: 98.6 DegF (08/07/24 21:16:00) Temperature Route: Oral (08/07/24 21:16:00) Pulse Rate:??94 bpm??High (08/07/24 21:16:00) Respiratory Rate: 18 br/min (08/07/24 23:23:00) Systolic Blood Pressure: 114 mm Hg (08/07/24 21:16:00) Diastolic Blood Pressure: 80 mm Hg (08/07/24 21:16:00) Blood pressure sites: Arm, left (08/07/24 21:16:00) Mean Arterial Pressure: 91 mm Hg (08/07/24 21:16:00) Pulse Pressure: 34 mm Hg (08/07/24 21:16:00) Oxygen Saturation:??93 %??Low (08/07/24 21:16:00) Mode of Delivery (Oxygen): Room air (08/07/24 21:16:00) Early Warning Score:??11??Critical (08/07/24 23:25:29) ? Pain Scores 1 - 10 Pain Scale Score: 0 (13:34) ?? Intake/Output? 08/07 17:26 08/08 07:00 08/07 07:00 08/06 07:00 08/05 07:00 ?? 08/08 00:46 08/08 00:46 08/08 06:59 08/07 06:59 08/06 06:59 Intake ? 50 ?0 ? 50 ?0 ?0 Output ?0 ?0 ?0 ?0 ?0 Net Total ? 50 ?0 ? 50 ?0 ?0 ? Precautions Seizure Precautions ? Physical Exam Gen-very shaky, looks like withdrawing HEENT- Normocephalic, Atraumatic, No pallor, icterus Neck-supple, no JVD Heart-S1S2(+),??regular, no murmurs. lungs- Clear, b/l air entry, no wheezing. Abdomen-soft, diffuse tenderness more in the epigastric region,nondistended,??bowel sounds present,No guarding. Extremities-pulses palpable. No pedal edema. No calf tenderness. Neurological- AAO??3. No gross focal neurological deficits noted. Psychiatric-patient???s mood is stable. Assessment/Plan 43-year-old female with PMH of alcoholic liver cirrhosis, alcohol use disorder, chronic pancreatitis, opiate use disorder on methadone, anxiety came to the ED with complaints of epigastric pain and ongoing bright red emesis for months.Initially in the ED patient was afebrile, HR 94, RR 18, BP 114/80, saturation 98% on room air.?? WBC 2.5, Hgb 11.2, PLT 45, electrolytes normal, BUN/creatinine/0.7,blood glucose 87, mag 1.4, calcium 8.3, AST/ALT 149/83, T. bili 2.9, lactate 2.4, ethanol 186.?? Patient actively withdrawing and will be admitted to inpatient medicine service for further management.?? She received clonidine, folic acid, magnesium, morphine, pantoprazole, thiamine and 81 in the EDalong with 1 L of fluid bolus. ?? 1. ??Alcohol withdrawal ??(F10.939) 2. ??Alcohol use disorder ??(F10.90) 11. ??Hypomagnesemia ??(E83.42) Vitals as per unit standards telemetry monitoring?? IV fluids, will encourage oral hydration CIWA protocol, lorazepam as needed as per CIWA score Thiamine/folic acid/multivitamin/paroxetine Alcohol cessation Addiction medicine consult once stable Daily trend electrolytes and replete as needed S/p 2 g of IV magnesium Daily trend BUNs/creatinine ?? 3. ??GI bleed ??(K92.2) 4. ??Hematemesis with nausea ??(K92.0) 5. ??Polysubstance use disorder ??(F19.90) 6. ??Patient on methadone maintenance therapy ??(F11.20) 7. ??Prolonged QT interval ??(R94.31) 8. ??Abdominal pain ??(R10.9) 9. ??Chronic pancreatitis ??(K86.1) 10. ??Alcoholic liver disease ??(K70.9) N.p.o. Pain control as needed Pantoprazole 40 mg IV twice daily GI consult order placed, appreciate recommendations Patient might??need EGD??due to ongoing upper GI bleed If nauseous consider Benadryl??or lorazepam, QTc??more than 500 Patient takes methadone 150 mg daily QTc more than 500, S/p IV magnesium Recheck EKG for QTc if less than 500 only does methadone Will resume pancrelipase Multivitamins Acamprosate Lactulose And iron supplements ?? Anxiety???patient used to take??lorazepam??and hydroxyzine. ??Not able to get dose of due to insurance issues.?? Will resume trazodone 50 mg??daily for insomnia.. ??Hydroxyzine??as needed ? Code Status:??Full resuscitation ?Order Code Status:??Code Status Ordered ?? VTE Prophylaxis:??Pneumatic compression boots ?VTE Prophylaxis Assessment:??VTE Prophylaxis Ordered Diet???n.p.o. ?? Patient seen and examined on 08/07/2024 Histories Allergies Allergies ?(Active and Proposed Allergies Only) LaMICtal? (Severity: Unknown severity, Onset: Unknown) ?Reactions: rash Compazine? (Severity: Unknown severity, Onset: Unknown) ?Reactions: rash masking effect Dust? (Severity: Unknown severity, Onset: Unknown) ?Reactions: hives Cats? (Severity: Unknown severity, Onset: Unknown) ?Reactions: rash, hives ? Past Medical History/Problem List Active Problems(17) Abdominal pain Alcohol withdrawal Allergic reaction Cystic fibrosis carrier Eating disorder Hepatic steatosis Hip pain Hyperbilirubinemia Hypokalemia Lactic acid acidosis LGSIL (low grade squamous intraepithelial dysplasia) Liver cirrhosis Obese class I Obesity Opioid use disorder in remission PTSD - Post-traumatic stress disorder Substance abuse [...] Acamprosate (acamprosate 333 mg oral delayed release tablet)?1?tab(s)?333?Milligram?By Mouth?3 times a day Albuterol (albuterol CFC free 90 mcg/inh inhalation aerosol)?2?puff(s)?Inhalation?4 times a day?as needed?as needed for wheezing Albuterol (Ventolin HFA 108 mcg/inh inhalation aerosol with adapter)?1?puff(s)?Inhalation?4 times a day?as needed?for wheezing Cyclopentolate Ophthalmic (cyclopentolate 1% ophthalmic solution)?1?Drops?Eye, Right?3 times a day?for 5?Days Ferrous Sulfate (ferrous sulfate 325 mg oral enteric coated tablet)?325?Milligram?1?tablet?By Mouth?Daily Gabapentin (gabapentin 600 mg oral tablet)?1?tab(s)?600?Milligram?By Mouth?3 times a day HydrOXYzine (hydrOXYzine hydrochloride 25 mg oral tablet)?1?tab(s)?25?Milligram?By Mouth?2 times a day?as needed?anxiety Ibuprofen (ibuprofen 600 mg oral tablet)?TAKE 1 TABLET BY MOUTH TWICE A DAY NEEDED FOR PAIN Lactulose (lactulose 10 gm/15 ml oral syrup)?15?Milliliter?10?gram?By Mouth?2 times a day?as needed?as needed for constipation Lorazepam (LORazepam 1 mg oral tablet)?TAKE 1 TABLET BY MOUTH DAILY,X7 DAYS NEEDED FOR ANXIETY Magnesium Oxide (magnesium oxide 500 mg oral capsule)?1?capsule?500?Milligram?By Mouth?Daily Methadone (methadone 10 mg/5 mL oral solution)?75?Milliliter?150?Milligram?By Mouth?Daily moxifloxacin ophthalmic (Moxifloxacin (Eqv-Vigamox) 0.5% ophthalmic solution)?INSTILL 1 DROP INTO RIGHT EYE EVERY 4 HOURS FOR 3 DAYS Multivitamin (Multivitamin Tablet)?1?tab(s)?By Mouth?Daily Ondansetron (ondansetron 4 mg oral tablet)?1?tab(s)?4?Milligram?By Mouth?Every 8 hours?as needed?Nausea & Vomiting?for 7?Days Ondansetron (ondansetron 4 mg oral tablet)?1?tab(s)?4?Milligram?By Mouth?Every 8 hours?as needed?Nausea & Vomiting Pancrelipase (Creon 36,000 units oral delayed release capsule)?1?capsule?By Mouth?3 times a day Pancrelipase (Creon 36,000 units oral delayed release capsule)?1?capsule?By Mouth?3 times a day?with each meal and snack Pantoprazole (pantoprazole 40 mg oral delayed release tablet)?1?tab(s)?40?Milligram?By Mouth?Daily Polyethylene Glycol 3350 (polyethylene glycol 3350 oral powder for reconstitution)?17?gram?By Mouth?Daily?dissolve in 4 to 8 oz of beverage. Take once daily, or up to three times dailyas needed for regular soft stools Sumatriptan (SUMAtriptan 50 mg oral tablet)?TAKE 1 TABLET BY MOUTH NEEDED FOR MIGRAINE. Trazodone (traZODone 50 mg oral tablet)?TAKE 1-2 TABLET BY MOUTH NEEDED FOR SLEEP ? Inpatient Medications Medications (29) Active SCHEDULED: (12) Acamprosate 333mg EC Tablet (acamprosate 333 mg oral delayed release tablet) ??333 mg, By Mouth, 3 times a day Cyclopentolate 1% Ophthalmic Solution (Cyclopentolate 1% Ophth) ??1 drops, Eye, Right, 3 times a day Folic Acid 1 mg Tablet (Folic Acid Tablet) ??1 mg, By Mouth, Daily Gabapentin 300 mg Capsule (gabapentin 300 mg oral capsule) ??600 mg, By Mouth, 3 times a day Multivitamin Therapeutic / Minerals Tablet (Multivit Therapeutic/Minerals Tablet) ??1 tablet, By Mouth, Daily NaCl 0.9% Flush 3ml (NaCL 0.9% Flush) ??3 mL, IV Push, Every 8 hours Pancrelipase 20,000 unit Capsule + Pancrelipase 10,000 unit Capsule + Pancrelipase 3,000 unit Capsu(Pancrelipase Capsule) ??36,000 units, By Mouth, 3 times a day Pantoprazole 40 mg Inj (Pantoprazole Inj) ??40 mg, IV Push Slowly, Every 12 hours Pt.'s Own Meds (Methadone liquid (10 mg/5mL)) ??150 mg (75 mL), By Mouth, Daily Pyridoxine 50 mg Tablet (Pyridoxine Tablet) ??50 mg, By Mouth, Daily Thiamine 100 mg Tablet (Thiamine Tablet) ??100 mg, By Mouth, 2 times a day Trazodone 50 mg Tablet (traZODone 50 mg oral tablet) ??50 mg, By Mouth, Daily at bedtime CONTINUOUS: (0) PRN: (17) Acetaminophen 325 mg Tablet (Acetaminophen Tablet) ??650 mg, By Mouth, Every 4 hours Dextromethorphan-Guaifenesin 20 mg-200 mg/10 mL Liqu UD (Robitussin DM Liquid) ??10 mL, By Mouth, Every 4 hours Docusate Sodium 100 mg Capsule (Docusate Sodium Capsule) ??100 mg 1 capsule, By Mouth, 2 times a day HYDROmorphone 0.5 mg/0.5 mL Inj Syringe (Dilaudid Inj) ??0.5 mg 0.5 mL, IV Push Slowly, Once HydrOXYzine HCL 10mg Tablet (hydrOXYzine hydrochloride 10 mg oral tablet) ??25 mg, By Mouth, 2 times a day Lactulose 20 Gm/30mL Syrup (lactulose 10 gm/15 ml oral syrup) ??10 Gm 15 mL, By Mouth, 2 times a day Lorazepam 1 mg Tablet (Ativan Tablet) ??1 mg, By Mouth, Every 2 hours Lorazepam 2 mg Inj Syringe (Ativan Inj) ??1 mg, IV Push Slowly, Every 2 hours Lorazepam 2 mg Inj Syringe (Ativan Inj) ??2 mg, IV Push Slowly, Every 2 hours Lorazepam 2 mg Inj Syringe (Ativan Inj) ??2 mg, IV Push Slowly, Every hour Lorazepam 2 mg Tablet (Ativan Tablet) ??2 mg, By Mouth, Every 2 hours Lorazepam 2 mg Tablet (LORazepam Tablet) ??2 mg, By Mouth, Every hour Melatonin 3 mg Tablet (Melatonin Tablet) ??3 mg, By Mouth, Daily at bedtime NaCl 0.9% Flush 3ml (NaCL 0.9% Flush) ??3 mL, IV Push, Every 8 hours Polyethylene Glycol 17 Gm Powder (MiraLax Powder) ??17 Gm 1 pack/packet, By Mouth, Daily Senna Tablet ??8.6 mg 1 tablet, By Mouth, 2 times a day Simethicone 80 mg Chewable Tablet (Simethicone Tablet) ??80 mg, Chew, 3 times a day ? Results Recent Labs BLOOD COUNT & DIFF WBC 2.5 k/mm3 (Low)?? 08/07/2024 14:02 RBC 3.62 m/mm3 (Low)?? 08/07/2024 14:02 Hgb 11.2 Gm/dL (Low)?? 08/07/2024 14:02 Hct 34.3 % (Low)?? 08/07/2024 14:02 MCV 94.8 femtoliters ()?? 08/07/2024 14:02 MCH 30.9 pg ()?? 08/07/2024 14:02 MCHC 32.7 Gm/dL (Low)?? 08/07/2024 14:02 Platelet Count 45 k/mm3 (Low)?? 08/07/2024 14:02 RDW-SD 61.3 femtoliters (High)?? 08/07/2024 14:02 MPV 10.8 femtoliters ()?? 08/07/2024 14:02 Nucleated RBC (Automated) 0.0 #/100 WBC'S ()?? 08/07/2024 14:02 Abs. NRBC 0.0 k/mm3 ()?? 08/07/2024 14:02 Abs. Neut 1.7 k/mm3 ()?? 08/07/2024 14:02 Abs. Lymph 0.6 k/mm3 (Low)?? 08/07/2024 14:02 Abs. Mckinley 0.1 k/mm3 (Low)?? 08/07/2024 14:02 Abs. Eo 0.0 k/mm3 ()?? 08/07/2024 14:02 Abs. Baso 0.0 k/mm3 ()?? 08/07/2024 14:02 Neut % 68.6 % ()?? 08/07/2024 14:02 Lymph % 24.5 % ()?? 08/07/2024 14:02 Mckinley % 5.7 % ()?? 08/07/2024 14:02 Eos % 0.8 % ()?? 08/07/2024 14:02 Baso % 0.4 % ()?? 08/07/2024 14:02 Imm Gran 0.0 % ()?? 08/07/2024 14:02 Abs. Imm Gran 0.0 k/mm3 ()?? 08/07/2024 14:02 ?? CHEM GENERAL Sodium 142 mmol/L ()?? 08/07/2024 14:02 Potassium 4.1 mmol/L ()?? 08/07/2024 14:02 Chloride 101 mmol/L ()?? 08/07/2024 14:02 Bicarbonate Level 28 mmol/L ()?? 08/07/2024 14:02 Anion Gap 13 ()?? 08/07/2024 14:02 Glucose Level 87 mg/dL ()?? 08/07/2024 14:02 BUN 4 mg/dL (Low)?? 08/07/2024 14:02 Creatinine-Blood 0.71 mg/dL ()?? 08/07/2024 14:02 Estimated GFR Creatinine 107 ML/MIN/1.73 M2 ()?? 08/07/2024 14:02 Calcium 8.5 mg/dL (Low)?? 08/07/2024 14:02 Magnesium 1.4 mg/dL (Low)?? 08/07/2024 14:02 Protein, Total 7.3 Gm/dL ()?? 08/07/2024 14:02 Albumin 3.5 Gm/dL ()?? 08/07/2024 14:02 AG Ratio 0.9 ()?? 08/07/2024 14:02 Alkaline Phosphatase 103 units/L ()?? 08/07/2024 14:02 Lipase 49 units/L ()?? 08/07/2024 14:02 AST (SGOT) 149 units/L (High)?? 08/07/2024 14:02 ALT (SGPT) 33 units/L ()?? 08/07/2024 14:02 Bilirubin, Total 2.9 mg/dL (High)?? 08/07/2024 14:02 Lactate 2.4 mmol/L (High)?? 08/07/2024 14:02 ?? ENDOCRINE/TUMOR MARKER TSH 0.82 uIU/mL ()?? 08/07/2024 14:02 Blood <1 mIU/mL ()?? 08/07/2024 14:02 ?? TOXICOLOGY/TDM Ethanol, Serum or Plasma 186 mg/dL (Abnormal)?? 08/07/2024 14:02 ?? URINE OTHER Est Creatinine Clearance 87.03 mL/min ()?? 08/07/2024 21:23 ? Urinalysis Est Creatinine Clearance: 87.03 mL/min (21:23) ? EKG study * Event Display: ECG 12-Lead Authored Date: [id number] Please click on pdf link to open report * Event Display: ECG 12-Lead Authored Date: [id number] Ventricular Rate: 63 BPM Atrial Rate: 63 BPM P-R Interval: 182 ms QRS Duration: 88 ms Q-T Interval: 498 ms QTC Calculation(Bazett): 509 ms P Harwood: 33 degrees R Harwood: 10 degrees T Harwood: 19 degrees Normal sinus rhythm Minimal voltage criteria for LVH, may be normal variant ( R in aVL ) Inferior infarct , age undetermined Cannot rule out Anterior infarct , age undetermined Prolonged QT Abnormal ECG When compared with ECG of 09-AUG-2024 02:27, Inferior infarct is now Present Criteria for LVH are now present Confirmed by Cory Mcdonough ([id number]) on 08/09/2024 10:24:26 AM Norton: Cory Mcdonough * Event Display: ECG 12-Lead Authored Date: [id number] Please click on pdf link to open report * Event Display: ECG 12-Lead Authored Date: [id number] Ventricular Rate: 67 BPM Atrial Rate: 67 BPM P-R Interval: 192 ms QRS Duration: 90 ms Q-T Interval: 528 ms QTC Calculation(Bazett): 557 ms P Harwood: 41 degrees R Harwood: 14 degrees T Harwood: 25 degrees Critical Test Result: Long QTc Normal sinus rhythm Cannot rule out Anterior infarct , age undetermined Prolonged QT Abnormal ECG When compared with ECG of 07-AUG-2024 13:54, No significant change was found Confirmed by CJ ROSALES MD ([id number]) on 08/10/2024 8:14:54 AM Norton: CJ ROSALES MD * Event Display: ECG 12-Lead Authored Date: [id number] Please click on pdf link to open report * Event Display: ECG 12-Lead Authored Date: Ventricular Rate: 61 BPM Atrial Rate: 61 BPM P-R Interval: 174 ms QRS Duration: 90 ms Q-T Interval: 532 ms QTC Calculation(Bazett): 535 ms P Harwood: 57 degrees R Harwood: 24 degrees T Harwood: 27 degrees Normal sinus rhythm Prolonged QT Abnormal ECG When compared with ECG of 21-MAY-2024 20:29, QT has shortened Confirmed by PRAVIN FUNK ([id number]) on 08/07/2024 2:49:08 PM Norton: PRAVIN FUNK Cardiology * Event Display: Cardiac Rhythm Strips Authored Date: * Event Display: Cardiac Rhythm Strips Authored Date: * Event Display: Cardiac Rhythm Strips Authored Date: * Event Display: Cardiac Rhythm Strips Authored Date: * Event Display: Cardiac Rhythm Strips Authored Date: Hospital Progress note * Silvana Brownlee RN: PERFORM, SIGN, VERIFY, MODIFY, SIGN Event Display: Progress Note Hospital Authored Date: [id number] Patient: DAREN FITZGERALD [facility]: [id number] Age: 44 years Sex: Female : 1980 Associated Diagnoses: None Author: Silvana Brownlee RN Findings Problem Related to Alteration in Gastrointestinal : Alteration in Gastrointestinal Func/new 08/15/2024 2:00 EDT Alteration in GI status Related to Constipation, Gastric Hemorrhage Goals & Outcomes, Gastrointestinal Nutritional intake is adequate for metabolic needs, Pt will maintain adequate GI function appropriate for pt, Pt will maintain normal elimination patterns, Pt will resume/maintain adequate hemodynamic status Interventions, Gastrointestinal Assess/monitor abdomen for distention, tenderness, Assess/monitor bowel pattern, bowel sounds, flatus, Assess/monitor number of bowel movements, Assess/monitor color, quantity, quality, consistency of stoo, Assess/monitor pt for nausea, vomiting, Assess/monitor intake & output, Assess if pt tolerating diet, Monitor bowel status for signs of constipation, Monitor & document reponse to anti-constipation meds Goals/Interventions, Gastrointestinal Yes Gastrointestinal, Problem Start 08/09/2024 23:29 Reviewed plan with, Gastrointestinal Patient Patient Progression, Gastrointestinal Pt progressing according to plan . Nursing Data Cardiac Data. : Cardiac Data. 08/14/2024 21:00 EDT Cardiac Rhythm Normal sinus rhythm monitor and storage bin tender Yes Cardiovascular WNL except . Vital Signs : VITAL SIGNS SECTION 08/14/2024 20:04 EDT Temperature 98.6 DegF Temperature Route Temporal Pulse Rate 75 bpm Respiratory Rate 18 br/min Systolic Blood Pressure 104 mm Hg Diastolic Blood Pressure 61 mm Hg Blood pressure sites Arm, right Mean Arterial Pressure 75 mm Hg Pulse Pressure 43 mm Hg Oxygen Saturation 95 % Mode of Delivery (Oxygen) Room air . Evaluation Pt is alert & oriented x3. NSR on tele. Denies chest pain, palpitations, shortness of breath, and dizziness. LS clear. Sats WNL on RA. Pt ambulates independently and voids appropriately in the bathroom. LBM 08/14. +BS. The pt denies any concerns at this time. Frequent rounding done to ensure safety & comfort. Bed in lowest locked position and call ford within reach.. * Sasha Tapia RN: VERIFY, PERFORM, SIGN Event Display: Progress Note Hospital Authored Date: [id number] Patient: DAREN FITZGERALD Age: 44 years Sex: Female : 1980 Associated Diagnoses: None Author: Sasha Tapia RN Findings Nursing Data Cardiac Data. : Cardiac Data. 08/14/2024 9:25 EDT Skin Temperature Upper Extremities Warm, Dry Skin Temperature Lower Extremities Warm, Dry Heart Sounds S1, S2 Cardiac Rhythm Normal sinus rhythm Dorsalis Pedis Pulse, Left Normal Dorsalis Pedis Pulse, Right Normal monitor and storage bin tender Yes Cardiovascular WNL except . Vital Signs : VITAL SIGNS SECTION 08/14/2024 13:02 EDT Temperature 98.3 DegF Temperature Route Temporal Pulse Rate 68 bpm Respiratory Rate 18 br/min Systolic Blood Pressure 93 mm Hg Diastolic Blood Pressure 58 mm Hg Blood pressure sites Arm, right Mean Arterial Pressure 70 mm Hg Pulse Pressure 35 mm Hg Oxygen Saturation 90 % L Mode of Delivery (Oxygen) Room air 08/14/2024 7:25 EDT Temperature 97.4 DegF Temperature Route Temporal Pulse Rate 72 bpm Respiratory Rate 18 br/min Systolic Blood Pressure 105 mm Hg Diastolic Blood Pressure 69 mm Hg Blood pressure sites Arm, left Mean Arterial Pressure 81 mm Hg Pulse Pressure 36 mm Hg Oxygen Saturation 90 % L Mode of Delivery (Oxygen) Room air . Evaluation pt a&o to self and place, drowsy/ lethargic throughout shift though arousable. sr on telemetry.noted to be satting 90% on room air. awakens only to eat, toilet and take medications. pt with complaints of abdominal discomfort, noted to have multiple stools overnight though kub obtained revealing moderate stool burden. pt ambulatory to br independently. discharge order placed this evening, pt e xpressed to this technical report writer that transportation would arrive at 1830. on entering room with discharge paperwork, pt became tearful stating she did not feel well. pt also mentioned she did not have medication prescriptions at home. covering provider cori ibrahim notified, discharge order removed. will continue to monitor tele, labs, urine output, weights, vs.. see cis for full biophysical assessment. . Discharge Information Rehabilitation Discharge : Rehab Discharge Index 08/12/2024 8:31 EDT Comments on treatment indicated 44 y/o F PMH of alcoholic liver cirrhosis, alcohol use disorder, chronic pancreatitis, opiate use disorder on methadone, anxiety came to the ED with complaints of epigastric pain and ongoing bright red emesis for months. WBAT Full chart review completed Yes Hospital course see comment Other findings {t is a moderate complexity evaluation as circumstances leading to hosoitalization impact POC and functional mobility * Catrachito Varela RN: PERFORM, SIGN, VERIFY Event Display: Progress Note Hospital Authored Date: [id number] Patient: DAREN FITZGERALD Age: 44 years Sex: Female : 1980 Associated Diagnoses: None Author: Catrachito Varela RN Findings Narrative/Incidental alert and oriented x3. OOB at [place]. tremor noted to hands. denies SOB. on 2L via NC with adequate oxygen. tele: NSR. abdomen SNT, +BS X4. LBM 08/13. no issues overnight. pt resting at this time. will continue to monitor. . Discharge Information Rehabilitation Discharge : Rehab Discharge Index 08/12/2024 8:31 EDT Comments on treatment indicated 44 y/o F PMH of alcoholic liver cirrhosis, alcohol use disorder, chronic pancreatitis, opiate use disorder on methadone, anxiety came to the ED with complaints of epigastric pain and ongoing bright red emesis for months. WBAT Full chart review completed Yes Hospital course see comment Other findings {t is a moderate complexity evaluation as circumstances leading to hosoitalization impact POC and functional mobility Consult note * Awilda Avery: PERFORM, SIGN, VERIFY Event Display: Consultation Note Authored Date: [id number] Patient: DAREN FITZGERALD Age: 44 years Sex: Female : 1980 Associated Diagnoses: None Author: Awilda Avery This technical report writer met with patient to discuss recovery resources. Patient is interested in a virtual IOP program. Patient has been referred to [facility] for the IOP virtually. Patient has an intake appointment scheduled for Saturday08/14/2024 at 8:45am. A coordinator from [facility] will call the patient at the time of the appointment. Patient declined additional recovery resources such as recovery caching,MAT for ETOH, local AA meetings and inpatient treatment programs. If patient decides she would likeadditional treatment resources, this technical report writer will follow up with patient again to assist. Addiction Consultation Team [address] [place] [id number] Patient: Daren Fitzgerald (: 1980) Date: 08/11/2024 You have been referred to the following programs: [facility] IOP Virtual [phone] option 2 Appointment Saturday08/14/2024 at 8:45am for IOP intake. A coordinator will call you at the time of the appointment to complete the intake. * Denise Demarco MD: PERFORM Event Display: Consultation Note Authored Date: [id number] Patient: ??DAREN FITZGERALD ? Age:??44 Years?Sex:??Female?:??1980?? Referrring Provider Not on Staff, Referring MD Ware, Chief Complaint Pt coming from home with c/o bright red emesis for the past couple months experiencing weakness, hx etoh , last drink yesterday last night, just recently began drinking again. Denies hx seizures. Pt denies abdominal pain. Pt denies blood thinners Reason for Consultation UGIB History of Present Illness This is a 44-year-old female with history of compensated alcohol cirrhosis, alcohol use disorder, chronic pancreatitis, opioid use disorder and anxiety who presented to the ED complaining of epigastric pain and emesis for months.?? GI is consulted for further evaluation. ?? Upon evaluation the patient reports that she has been vomiting daily around 4 times.?? Recently shehas been vomiting more and on the day of presentation she had over 10 episodes of emesis.?? She is so large amounts of bright red blood.?? Reports that her stools are brown.?? Chronic epigastric pain.?? Drinks 8-6 nips daily.?? She reports history of peptic ulcer disease. ?? In the ED the patient was hemodynamically stable, hemoglobin was 11.2 and platelet count was 45 (both around her baseline). AST 149, ALT 33, T. bili 2.9, alk phos 103.?? INR 1.6. ?? Denies family history of malignancy (liver, pancreatic or GI).?? Is taking Protonix daily.?? Deniesuse of NSAIDs.?? She reports losing 10 pounds within 1 month. ?? Reports having EGDs previously but??no records at [facility]. Review of Systems Of except as above. Physical Exam Vitals & Measurements T:??98.1?F?? TMIN:??98.1?F?? TMAX:??99?F?? HR:??84??(Peripheral)?? RR:??16?? RR:??16?? BP:??124/73?? SpO2:??92%?? WT:??82.7??kg?? General:??No acute distress. Well developed HEENT:??Moist mucus membranes. Anicteric sclera Respiratory:??Speaking comfortably. Not dyspneic Cardiovascular:??Normal rate, regular rhythm, no murmurs?? GI/Abdomen:??Soft, epigastric tenderness, non-distended Skin:??No jaundice. No rash Neurologic:??Alert & Oriented. ??Bilateral tremors. ??No asterixis. Assessment/Plan Assessment:??This is a 44-year-old female with history of compensated alcohol cirrhosis, alcohol use disorder, chronic pancreatitis, opioid use disorder and anxiety who presented to the ED complaining of epigastric pain and hematemesis for months.??GI is consulted for further evaluation. ?? In the ED the patient was hemodynamically stable, hemoglobin was 11.2 and platelet count was 45 (both around her baseline). AST 149, ALT 33, T. bili 2.9, alk phos 103.??INR 1.6.?? MELD 3.0 = 16?? Etiology??include esophagitis,??Lisa-Suarez tear,??peptic ulcer disease, AVM, less likely variceal bleed. ?? -Protonix 40 mg twice daily??IV -Planning for EGD today -Counseling on??complete alcohol abstinence -Trend H&H daily -Daily MELD labs -US to evaluate for the presence of??ascites and patency of portal vein?? -Further recs??in procedure note ?? Plan discussed with primary team.?? Patient discussed with??attending physician? Denise Demarco MD?? Gastroenterology Fellow - PGY 4 ? Problem List/Past Medical History Ongoing Abdominal pain Alcohol withdrawal Allergic reaction Cystic fibrosis carrier Eating disorder Hepatic steatosis Hip pain Hyperbilirubinemia Hypokalemia Lactic acid acidosis LGSIL (low grade squamous intraepithelial dysplasia) Liver cirrhosis Obese class I Obesity Opioid use disorder in remission PTSD - Post-traumatic stress disorder Substance abuse in remission Procedure/Surgical History ???Laparoscopy, surgical; cholecystectomy (2003)???Tonsillectomy and adenoidectomy; age 12 or over Medications Inpatient acamprosate 333 mg oral delayed release tablet, 333 mg, By Mouth, 3 times a day Acetaminophen Tablet, 650 mg, By Mouth, Every 4 hours, PRN Ativan Inj, 1 mg, IV Push Slowly, Every 2 hours, PRN Ativan Inj, 2 mg, IV Push Slowly, Every 2 hours, PRN Ativan Inj, 2 mg, IV Push Slowly, Every hour, PRN Ativan Tablet, 1 mg, By Mouth, Every 2 hours, PRN Ativan Tablet, 2 mg, By Mouth, Every 2 hours, PRN Bolus D5%/LR 500mL (PACU ONLY) 500 mL, 500 mL, IV Infusion, Once Cyclopentolate 1% Ophth, 1 drops, Eye, Right, 3 times a day DiphenhydrAMINE Inj (PACU ONLY), 12.5 mg= 0.25 mL, IV Push, Once, PRN Docusate Sodium Capsule, 100 mg= 1 capsule, By Mouth, 2 times a day, PRN Folic Acid Tablet, 1 mg, By Mouth, Daily gabapentin 300 mg oral capsule, 600 mg, By Mouth, 3 times a day HYDROmorphone Inj (PACU ONLY), 0.5 mg= 0.5 mL, IV Push Slowly, Every 5 minutes, PRN hydrOXYzine hydrochloride 10 mg oral tablet, 25 mg, By Mouth, 2 times a day, PRN lactulose 10 gm/15 ml oral syrup, 10 Gm= 15 mL, By Mouth, 2 times a day, PRN LORazepam Inj (PACU ONLY), 1 mg, IV Push Slowly, Once, PRN LORazepam Tablet, 2 mg, By Mouth, Every hour, PRN Melatonin Tablet, 3 mg, By Mouth, Daily at bedtime, PRN Methadone liquid (10 mg/5mL), 150 mg (75 mL), By Mouth, Daily MiraLax Powder, 17 Gm= 1 pack/packet, By Mouth, Daily, PRN Multivit Therapeutic/Minerals Tablet, 1 tablet, By Mouth, Daily NaCL 0.9% Flush, 3 mL, IV Push, Every 8 hours NaCL 0.9% Flush, 3 mL, IV Push, Every 8 hours, PRN nalOXONE Inj, 0.04 mg= 0.1 mL, IV Push, Every 5 minutes, PRN Ondansetron Inj (PACU ONLY), 4 mg, IV Push, Once, PRN Oxycodone 5mg Oral Tablet (PACU ONLY), 15 mg, By Mouth, Once, PRN Pancrelipase Capsule, 87925 units, By Mouth, 3 times a day Pantoprazole Inj, 40 mg, IV Push Slowly, Every 12 hours Pyridoxine Tablet, 50 mg, By Mouth, Daily Robitussin DM Liquid, 10 mL, By Mouth, Every 4 hours, PRN Senna Tablet, 8.6 mg= 1 tablet, By Mouth, 2 times a day, PRN Simethicone Tablet, 80 mg, Chew, 3 times a day, PRN Thiamine Tablet, 100 mg, By Mouth, 2 times a day traZODone 50 mg oral tablet, 50 mg, By Mouth, Daily at bedtime Home acamprosate 333 mg oral delayed release tablet, 333 mg= 1 tablet, By Mouth, 3 times a day albuterol CFC free 90 mcg/inh inhalation aerosol, 2 puffs, Inhalation, 4 times a day, PRN Creon 36,000 units oral delayed release capsule, 1 capsule, By Mouth, 3 times a day Creon 36,000 units oral delayed release capsule, 1 capsule, By Mouth, 3 times a day cyclopentolate 1% ophthalmic solution, 1 drops, Eye, Right, 3 times a day ferrous sulfate 325 mg oral enteric coated tablet, 325 mg= 1 tablet, By Mouth, Daily gabapentin 600 mg oral tablet, 600 mg= 1 tablet, By Mouth, 3 times a day hydrOXYzine hydrochloride 25 mg oral tablet, 25 mg= 1 tablet, By Mouth, 2 times a day, PRN ibuprofen 600 mg oral tablet lactulose 10 gm/15 ml oral syrup, 10 Gm= 15 mL, By Mouth, 2 times a day, PRN LORazepam 1 mg oral tablet magnesium oxide 500 mg oral capsule, 500 mg= 1 capsule, By Mouth, Daily methadone 10 mg/5 mL oral solution, 150 mg= 75 mL, By Mouth, Daily Moxifloxacin (Eqv-Vigamox) 0.5% ophthalmic solution Multivitamin Tablet, 1 tablet, By Mouth, Daily ondansetron 4 mg oral tablet, 4 mg= 1 tablet, By Mouth, Every 8 hours, PRN ondansetron 4 mg oral tablet, 4 mg= 1 tablet, By Mouth, Every 8 hours, PRN pantoprazole 40 mg oral delayed release tablet, 40 mg= 1 tablet, By Mouth, Daily polyethylene glycol 3350 oral powder for reconstitution, 17 Gm, By Mouth, Daily SUMAtriptan 50 mg oral tablet traZODone 50 mg oral tablet Ventolin HFA 108 mcg/inh inhalation aerosol with adapter, 1 puffs, Inhalation, 4 times a day, PRN Allergies Cats??(hives, rash) Compazine??(rash masking effect) Dust??(hives) LaMICtal??(rash) Social History Alcohol Use: Current. Frequency: 3-5 times per week. Type: Liquor. Exercise Regular exercise: Yes. Exercise frequency: 5-6 times/week. Substance Abuse Use: Past. Other: Opiates, pt has been on Suboxone x6 yrs. Tobacco Use: Former smoker, quit more than 30 days ago. Family History Cancer: Pat. Grandmother. Hypertension: Mother. Lab Results Test Name Test Result Date/Time WBC 2.8 k/mm3 08/08/2024 01:12 EDT Hgb 9.8 Gm/dL 08/08/2024 01:12 EDT Platelet Count 39 k/mm3 08/08/2024 01:12 EDT INR 1.6 05/26/2024 08:26 EDT Protime (PT) 16.4 seconds 05/26/2024 08:26 EDT Sodium 140 mmol/L 08/08/2024 01:12 EDT BUN 5 mg/dL 08/08/2024 01:12 EDT Creatinine-Blood 0.72 mg/dL 08/08/2024 01:12 EDT Estimated GFR Creatinine 105 ML/MIN/1.73 M2 08/08/2024 01:12 EDT Calcium 8.3 mg/dL 08/08/2024 01:12 EDT Phosphorus 3.5 mg/dL 08/08/2024 01:12 EDT Magnesium 1.5 mg/dL 08/08/2024 01:12 EDT AST (SGOT) 149 units/L 08/07/2024 14:02 EDT ALT (SGPT) 33 units/L 08/07/2024 14:02 EDT Bilirubin, Total 2.9 mg/dL 08/07/2024 14:02 EDT Lactate 2.4 mmol/L 08/07/2024 14:02 EDT * Servando MARINELLI, [place]: PERFORM Event Display: Consultation Note Authored Date: [id number] ?I saw and evaluated the patient. Discussed with the fellow and agree with the findings and plan as documented in the fellow's note.?see EGD for recs ?? Note * Emely Rowan RN: PERFORM Event Display: Discharge/Transfer Note Hospital Authored Date: [id number] Nursing Discharge Note Entered On: 08/15/2024 11:25 EDT Performed On: 08/15/2024 11:25 EDT by Emely Rowan RN Nursing Discharge Note 2 Patient Left Unit Via : Wheelchair Patient Accompanied Off Unit with : Responsible adult DC Instructions Provided & Signed by Pt : Yes Patient Understands D/C Instructions : Yes Patient Instructions Discharge Signed : Yes Did Pt have Specialty Bed or Wound Vac : No Emely Rowan RN - 08/15/2024 11:25 EDT * Salvador Florentino DO: PERFORM Event Display: Discharge/Transfer Note Hospital Authored Date: Patient: ??ASIF, DAREN ? Age:??44 Years?Sex:??Female?:??1980?? Patient Information Discharge Location: 7 Primary Care Physician: Rebekah Fiore MD Admit Date/Time: 08/07/24 17:26 Discharge Disposition Discharge Disposition: Home: No Services Discharge Diagnosis Alcohol withdrawal (F10.939) Alcohol use disorder (F10.90) GI bleed (K92.2) Hematemesis with nausea (K92.0) Polysubstance use disorder (F19.90) Patient on methadone maintenance therapy (F11.20) Prolonged QT interval (R94.31) Abdominal pain (R10.9) Chronic pancreatitis (K86.1) Alcoholic liver disease (K70.9) Hypomagnesemia (E83.42) Pancytopenia (D61.818) Portal hypertensive gastropathy (K76.6) GI bleed (K92.2) Alcohol withdrawal (F10.939) _ Discharge Medications Acamprosate (acamprosate 333 mg oral delayed release tablet)?1?tab(s)?333?Milligram?By Mouth?3 times a day Albuterol (albuterol CFC free 90 mcg/inh inhalation aerosol)?2?puff(s)?Inhalation?4 times a day?as needed?as needed for wheezing Cyclopentolate Ophthalmic (cyclopentolate 1% ophthalmic solution)?1?Drops?Eye, Right?3 times a day?for 5?Days Docusate (docusate sodium 100 mg oral capsule)?100?Milligram?1?capsule?By Mouth?Daily?as needed?for 30?Days?Constipation Ferrous Sulfate (ferrous sulfate 325 mg oral enteric coated tablet)?325?Milligram?1?tablet?By Mouth?Daily HydrOXYzine (hydrOXYzine hydrochloride 25 mg oral tablet)?1?tab(s)?25?Milligram?By Mouth?2 times a day?as needed?anxiety Lactulose (lactulose 10 gm/15 ml oral syrup)?15?Milliliter?10?gram?By Mouth?2 times a day?as needed?as needed for constipation Magnesium Oxide (magnesium oxide 500 mg oral capsule)?1?capsule?500?Milligram?By Mouth?Daily Methadone (methadone 10 mg/5 mL oral solution)?75?Milliliter?150?Milligram?By Mouth?Daily Multivitamin (Multivitamin Tablet)?1?tab(s)?By Mouth?Daily Pancrelipase (Creon 36,000 units oral delayed release capsule)?1?capsule?By Mouth?3 times a day?with each meal and snack Pantoprazole (pantoprazole 40 mg oral delayed release tablet)?1?tab(s)?40?Milligram?By Mouth?Daily Polyethylene Glycol 3350 (polyethylene glycol 3350 oral powder for reconstitution)?17?gram?By Mouth?Daily?dissolve in 4 to 8 oz of beverage. Take once daily, or up to three times dailyas needed for regular soft stools ? Allergies Allergies ?(Active and Proposed Allergies Only) LaMICtal? (Severity: Unknown severity, Onset: Unknown) ?Reactions: rash Compazine? (Severity: Unknown severity, Onset: Unknown) ?Reactions: rash masking effect Dust? (Severity: Unknown severity, Onset: Unknown) ?Reactions: hives Cats? (Severity: Unknown severity, Onset: Unknown) ?Reactions: rash, hives ? Hospital Course Daren is a 44-year-old woman with a past medical history significant for alcoholic liver cirrhosis, alcohol use disorder, chronic pancreatitis and opioid use disorder on methadone in the hospital setting of epigastric pain and bright red emesis.?? On initial presentation to the hospital patient noted to have mild tachycardia but was otherwise hemodynamically stable and laboratories to include aCBC and CMP were notable only for thrombocytopenia which is chronic, hypomagnesemia and a mildly elevated lactate which resolved quickly.?? Patient additionally was noted to have a positive ethanol level on presentation.?? Secondary to episode of hematemesis and ongoing nausea patient underwent a EGD which showed portal hypertensive gastropathy and was recommended to avoid alcohol and NSAIDs as well as placed on a PPI which she has been tolerating.?? Patient was monitored in the hospital for alcohol withdrawal for which she required Ativan and Valium but has now been titrated off these medications and no longer having any symptoms of withdrawal.?? Of note hospitalization also complicated byconstipation for which aggressive bowel regiment was needed before finally having success and patient prescribed a bowel regimen outpatient as constipation is likely secondary to her ongoing methadone use for her opioid use disorder and will need a bowel regimen continue regular movements.?? Given p atient is now successfully had a bowel movement and is no longer in withdrawal and hemoglobin is stable deemed appropriate for discharge??from the hospital and can follow-up with gastroenterology outpatient.?? Of note??patient apparently out of all of her home medications and they were prescribed??but informed she needs to follow-up with her primary care physician to continue the prescriptions. ?? Alcohol withdrawal??(F10.939) Alcohol use disorder??(F10.9 Patient with a past medical history of alcohol use disorder that is active and her last drink was the day prior to presentation.?? Patient??had a blood alcohol level of 186 on 08/07 and was scoring on CIWA protocol requiring medication over course of hospitalization. ??She is now however no longer requiring medication. Mentation??improved today with discontinuation of sedating medications ??? Continue acamprosate ??? Outpatient follow-up with PCP for continued support of abstinence from alcohol ?? GI bleed??(K92.2) Hematemesis with nausea??(K92.0) Pancytopenia (D61.818) Presented with hematemesis??with nausea in the setting of??ongoing alcohol use EGD??done??on 08/08???portal hypertensive gastropathy Patient also noted to have small petechial lesion which is likely in the setting of thrombocytopenia and can be monitored ??? Continue PPI ??? Avoid alcohol and NSAIDs ??? Outpatient follow-up with gastroenterology ?? Polysubstance use disorder??(F19.90) Patient on methadone maintenance therapy??(F11.20) Patient with significant history of??polysubstance abuse. ??Currently??is on methadone 150 mg??which has been continued during his hospital stay. ?? Mentation??improving today??with discontinuation of Valium??and Ativan ???Continue home methadone dosing ?? Constipation: Likely due to methadone, has successfully had bowel movement now and we will make sure patient has bowel medications at home distant regular Chronic pancreatitis??(K86.1): Continue home pancrelipase Alcoholic liver disease??(K70.9)/ Cirrhosis: Continue lactulose Objective Vital Signs?? Temperature: 99.4 DegF (08/15/24 07:50:00) Temperature Route: Oral (08/15/24 07:50:00) Pulse Rate: 67 bpm (08/15/24 07:50:00) Respiratory Rate: 18 br/min (08/15/24 10:09:00) Systolic Blood Pressure: 105 mm Hg (08/15/24 07:50:00) Diastolic Blood Pressure: 67 mm Hg (08/15/24 07:50:00) Blood pressure sites: Arm, right (08/15/24 07:50:00) Mean Arterial Pressure: 80 mm Hg (08/15/24 07:50:00) Pulse Pressure: 38 mm Hg (08/15/24 07:50:00) Oxygen Saturation:??93 %??Low (08/15/24 07:50:00) Mode of Delivery (Oxygen): Room air (08/15/24 07:50:00) Early Warning Score: 2 (08/15/24 10:10:21) Early Warning Score: 2 (08/15/24 10:10:21) ? . Physical Exam General Appearance: NAD. Eyes:??No scleral icterus. ENT: ??MM moist. Cardiovascular: RRR S1 and S2 Respiratory: ??Breath sounds clear GI: Soft. Nontender and nondistended.? MS: ??No edema or erythema in the lower extremities. Neuro: ??No slurred speech. Moving upper and lower extremities spontaneously. Psych: Alert and oriented x3.?? Surgical Procedures Gastroscopy (EGD) Diagnostic 08/08/2024 10:05 [facility] G[facility] Follow-Up Appointments Added Follow Up ?Time Frame ?Comments Adebayo MARINELLI, Rebekah?3-5 day: call to discuss follow up visit Results Discharge Labs BLOOD COUNT & DIFF WBC 2.3 k/mm3 (Low)?? 08/13/2024 04:24 RBC 3.20 m/mm3 (Low)?? 08/13/2024 04:24 Hgb 9.9 Gm/dL (Low)?? 08/13/2024 04:24 Hct 32.2 % (Low)?? 08/13/2024 04:24 MCV 100.6 femtoliters (High)?? 08/13/2024 04:24 MCH 30.9 pg ()?? 08/13/2024 04:24 MCHC 30.7 Gm/dL (Low)?? 08/13/2024 04:24 Platelet Count 41 k/mm3 (Low)?? 08/13/2024 04:24 RDW-SD 66.9 femtoliters (High)?? 08/13/2024 04:24 MPV 12.3 femtoliters ()?? 08/13/2024 04:24 Nucleated RBC (Automated) 0.0 #/100 WBC'S ()?? 08/13/2024 04:24 Abs. NRBC 0.0 k/mm3 ()?? 08/13/2024 04:24 Abs. Neut 1.8 k/mm3 ()?? 08/08/2024 01:12 Abs. Lymph 0.7 k/mm3 (Low)?? 08/08/2024 01:12 Abs. Mckinley 0.2 k/mm3 (Low)?? 08/08/2024 01:12 Abs. Eo 0.0 k/mm3 ()?? 08/08/2024 01:12 Abs. Baso 0.0 k/mm3 ()?? 08/08/2024 01:12 Neut % 64.2 % ()?? 08/08/2024 01:12 Lymph % 25.6 % ()?? 08/08/2024 01:12 Mckinley % 8.7 % ()?? 08/08/2024 01:12 Eos % 1.1 % ()?? 08/08/2024 01:12 Baso % 0.4 % ()?? 08/08/2024 01:12 Imm Gran 0.0 % ()?? 08/08/2024 01:12 Abs. Imm Gran 0.0 k/mm3 ()?? 08/08/2024 01:12 ?? CHEM GENERAL Sodium 135 mmol/L ()?? 08/13/2024 04:24 Potassium 3.9 mmol/L ()?? 08/13/2024 04:24 Chloride 100 mmol/L ()?? 08/13/2024 04:24 Bicarbonate Level 25 mmol/L ()?? 08/13/2024 04:24 Anion Gap 10 ()?? 08/13/2024 04:24 Glucose Level 135 mg/dL (High)?? 08/10/2024 19:14 BUN 11 mg/dL ()?? 08/13/2024 04:24 Creatinine-Blood 0.67 mg/dL ()?? 08/13/2024 04:24 Estimated GFR Creatinine 110 ML/MIN/1.73 M2 ()?? 08/13/2024 04:24 Calcium 9.1 mg/dL ()?? 08/10/2024 19:14 Phosphorus 3.5 mg/dL ()?? 08/08/2024 01:12 Magnesium 1.8 mg/dL ()?? 08/13/2024 04:24 Protein, Total 6.9 Gm/dL ()?? 08/09/2024 08:40 Albumin 3.4 Gm/dL ()?? 08/09/2024 08:40 AG Ratio 0.9 ()?? 08/07/2024 14:02 Alkaline Phosphatase 103 units/L ()?? 08/09/2024 08:40 Lipase 49 units/L ()?? 08/07/2024 14:02 AST (SGOT) 100 units/L (High)?? 08/09/2024 08:40 ALT (SGPT) 27 units/L ()?? 08/09/2024 08:40 Bilirubin, Total 3.0 mg/dL (High)?? 08/09/2024 08:40 Bilirubin, Direct 1.4 mg/dL (High)?? 08/09/2024 08:40 Bilirubin, Indirect 1.6 mg/dL (High)?? 08/09/2024 08:40 Lactate 1.0 mmol/L ()?? 08/08/2024 07:37 ? COAG INR 1.9 (High)?? 08/09/2024 08:41 Protime (PT) 18.8 seconds (High)?? 08/09/2024 08:41 ?? ENDOCRINE/TUMOR MARKER TSH 0.82 uIU/mL ()?? 08/07/2024 14:02 Blood <1 mIU/mL ()?? 08/07/2024 14:02 ?? HEME OTHER Hold Lavender Top SPECIMEN DISCARDED AFTER 24 HOURS. ()?? 08/10/2024 19:14 ? MISC. CHEMISTRY Hold Green Top SPECIMEN DISCARDED AFTER 1 WEEK ()?? 08/08/2024 07:37 ? TOXICOLOGY/TDM Ethanol, Serum or Plasma 186 mg/dL (Abnormal)?? 08/07/2024 14:02 Barbiturate Screen, Urine NONE DETECTED ()?? 08/09/2024 17:00 Cannabinoid Screen, Urine NONE DETECTED ()?? 08/09/2024 17:00 Cocaine Metabolite Screen, Urine NONE DETECTED ()?? 08/09/2024 17:00 Benzodiazepine Screen, Urine POSITIVE (Abnormal)?? 08/09/2024 17:00 Amphetamine Screen, Urine NONE DETECTED ()?? 08/09/2024 17:00 Opiate Screen, Urine NONE DETECTED ()?? 08/09/2024 17:00 ? UA/URINALYSIS Appear/Color, Urine YELLOW ()?? 08/08/2024 05:30 Specific [place], Urine 1.015 ()?? 08/08/2024 05:30 pH, Urine 7.0 ()?? 08/08/2024 05:30 Albumin, Urine NEGATIVE ()?? 08/08/2024 05:30 Glucose, Urine NEGATIVE ()?? 08/08/2024 05:30 Ketones, Urine NEGATIVE ()?? 08/08/2024 05:30 Bilirubin, Urine NEGATIVE ()?? 08/08/2024 05:30 Hemoglobin, Urine NEGATIVE ()?? 08/08/2024 05:30 Nitrite, Urine NEGATIVE ()?? 08/08/2024 05:30 Leukocyte, Urine TRACE (Abnormal)?? 08/08/2024 05:30 Urobilinogen 8 mg/dL (Abnormal)?? 08/08/2024 05:30 WBC's, Urine 1 /HPF ()?? 08/08/2024 05:30 RBC's, Urine 2 /HPF ()?? 08/08/2024 05:30 Bacteria SLIGHT HPF (Abnormal)?? 08/08/2024 05:30 Squamous Epith 1 /HPF ()?? 08/08/2024 05:30 Mucus SLIGHT /LPF ()?? 08/08/2024 05:30 Hold Urine Culture Testing available 48 hours from time of collection. ()?? 08/08/2024 05:30 ? URINE OTHER Est Creatinine Clearance 92.23 mL/min ()?? 08/13/2024 05:34 ? 36??minutes spent on discharge * Emely Rowan RN: PERFORM Event Display: Patient Education Leaflets Authored Date: [id number] Stool Softeners ?? [id number] Stool Softeners Brand Name(s): Colace??, Correctol Soft Gels??, Diocto??, Ex-Lax Stool Softener??, Fleet Sof-Lax??,Pastor' Liqui-Gels??, Surfak??, Correctol 50 Plus?? (as a combination product containing Docusate, Sennosides), Ex-Lax Gentle Strength?? (as a combination product containing Docusate, Sennosides), Gentlax S?? (as a combination product containing Docusate, Sennosides), Holly-Colace?? (as a combination product containing Docusate, Sennosides), Senokot S?? (as a combination product containing Docusate, Sennosides); also available generically ?? dioctyl calcium sulfosuccinate, dioctyl sodium sulfosuccinate, docusate calcium, docusate sodium, CHANTAL, DSS WHY is this medicine prescribed? Stool softeners are used on a short-term basis to relieve constipation by people who should avoid straining during bowel movements because of heart conditions, hemorrhoids, and other problems. They work by softening stools to make them easier to pass. HOW should this medicine be used? Stool softeners come as a capsule, tablet, liquid, and syrup to take by mouth. A stool softener usually is taken at bedtime. Follow the directions on the package or your prescription label carefully,and ask your doctor or pharmacist to explain any part you do not understand. Take stool softeners exactly as directed. Do not take more or less of it or take it more often than prescribed by your doctor. Swallow the docusate capsules whole; do not split, chew, or crush them. Take capsules and tablets with a full glass of water. The liquid comes with a specially marked dropper for measuring the dose. Ask your pharmacist to show you how to use it if you have difficulty. Mix the liquid (not the syrup) with 4 ounces (120 milliliters) of milk, fruit juice, or formula to mask its bitter taste. One to three days of regular use usually are needed for this medicine to take effect. Do not take stool softeners for more than 1 week unless your doctor directs you to. If sudden changes in bowel habits last longer than 2 weeks or if your stools are still hard after you have taken this medicine for 1 week, call your doctor. Are there OTHER USES for this medicine? This medication may be prescribed for other uses; ask your doctor or pharmacist for more information. What SPECIAL PRECAUTIONS should I follow? Before taking stool softeners, ??? tell your doctor and pharmacist if you are allergic to any stool softeners, any other medications, or to any of the ingredients in the stool softeners, Ask your pharmacist for a list of the ingredients. ??? tell your doctor and pharmacist what prescription and nonprescription medications, vitamins, nutritional supplements, and herbal products you are taking or plan to take while taking stool softeners. Your doctor may need to change the doses of your medications or monitor you carefully forside effects. ??? the following nonprescription product may interact with stool softeners: mineral oil. Be sure to let your doctor and pharmacist know that you are taking this medication before you start taking stool softeners. Do not start any of this medication while taking stool softeners without discussing with your healthcare provider. ??? tell your doctor if you are , plan to become, or are . If you become while taking stool softeners, call your doctor. What should I do IF I FORGET to take a dose? This medication usually is taken as needed. If your doctor has told you to take stool softeners regularly, take the missed dose as soon as you remember it. However, if it is almost time for the next dose, skip the missed dose and continue your regular dosing schedule. Do not take a double dose to make up for a missed one. What SIDE EFFECTS can this medicine cause? Stool softeners may cause side effects. Tell your doctor if any of these symptoms are severe or do not go away: ??? stomach or intestinal cramps ??? nausea ??? throat irritation (from oral liquid) ??? Some side effects can be serious. If you experience any of the following symptoms, call your doctor immediately: ??? rash ??? hives ??? difficulty breathing or swallowing ??? fever ??? vomiting ??? stomach pain If you experience a serious side effect, you or your doctor may send a report to the Food and Drug Administration's (FDA) MedWatch Adverse Event Reporting program online (https://www.fda.gov/Safety/MedWatch) or by phone ( ). What should I know about STORAGE and DISPOSAL of this medication? Keep this medication in the container it came in, tightly closed, and out of reach of children. Store it at room temperature and away from excess heat and moisture (not in the bathroom). It [...] and out of their sight and reach. https://www.[employer].org Unneeded medications should be disposed of in [...] the FDA's Safe Disposal of Medicines website (https://goo.gl/c4Rm4p) for more information if you do not have access to a take-back program. What OTHER INFORMATION should I know? Ask your pharmacist any questions you have about taking this medicine. It is important for you to keep a written list of all of the prescription and nonprescription (qkna-bav-[id number]) medicines you are taking, as well as [...] or pharmacist about specific clinical use. The [employer] represents that the information provided hereunder was formulated with a reasonable standard of care, and in conformity with professional standards in the field. The [employer] makes no representations or warranties, express or implied, including, but not limited to, any implied warranty of merchantability and/or fitness for a particular purpose, with respect to such information and specifically disclaims all such warranties. Users are advised that decisions regarding drug therapy are complex medical decisions requiring the independent, informed decision of an appropriate health spiritual care coordinator, and the information is provided for informational purposes only. The entire monograph for a drug should be reviewed for a thorough understanding of the drug's actions, uses and side effects. The [employer] does not endorse or recommend the use of any drug.The information is not a substitute for medical care. AHFS?? Patient Medication Information???. ?? Copyright, 2023. The [employer]??, [address], [address], [place], [place]. All Rights Reserved. Duplication for commercial use must be authorized by [facility]. Selected Revisions: April 16, 2024. AHFS?? Patient Medication Information???. ?? Copyright, 2023 ?? * Emely Rowan RN: PERFORM Event Display: Patient Education Leaflets Authored Date: [id number] Understanding Cirrhosis ?? 17119 Understanding Cirrhosis Cirrhosis is a lifelong (chronic) [...] you ?? Last Reviewed Date: 2023 ?? 2740-7842 [employer]. All rights reserved. This information is not intended as a substitute for professional medical care. Always follow your healthcare professional's instructions. ?? * Salvador Florentino DO: PERFORM Event Display: Discharge/Transfer Note Hospital Authored Date: [id number] Patient: ??DAREN FITZGERALD ? Age:??44 Years?Sex:??Female?:??1980?? 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) Prolonged QT interval (R94.31) Abdominal pain (R10.9) Chronic pancreatitis (K86.1) Alcoholic liver disease (K70.9) Hypomagnesemia (E83.42) Pancytopenia (D61.818) Portal hypertensive gastropathy (K76.6) GI bleed (K92.2) Alcohol withdrawal (F10.939) _ Discharge Medications Acamprosate (acamprosate 333 mg oral delayed release tablet)?1?tab(s)?333?Milligram?By Mouth?3 times a day Albuterol (albuterol CFC free 90 mcg/inh inhalation aerosol)?2?puff(s)?Inhalation?4 times a day?as needed?as needed for wheezing Cyclopentolate Ophthalmic (cyclopentolate 1% ophthalmic solution)?1?Drops?Eye, Right?3 times a day?for 5?Days Docusate (docusate sodium 100 mg oral capsule)?100?Milligram?1?capsule?By Mouth?Daily?as needed?for 30?Days?Constipation Ferrous Sulfate (ferrous sulfate 325 mg oral enteric coated tablet)?325?Milligram?1?tablet?By Mouth?Daily Gabapentin (gabapentin 600 mg oral tablet)?1?tab(s)?600?Milligram?By [...] delayed release capsule)?1?capsule?By Mouth?3 times a day Pancrelipase (Creon 36,000 units oral delayed release capsule)?1?capsule?By Mouth?3 times a day?with each meal and snack Pantoprazole (pantoprazole 40 mg oral delayed release tablet)?1?tab(s)?40?Milligram?By Mouth?Daily Polyethylene Glycol 3350 (polyethylene glycol 3350 oral powder for reconstitution)?17?gram?By Mouth?Daily?dissolve in 4 to 8 oz of beverage. Take once daily, or up to three times dailyas needed for regular soft stools Sumatriptan (SUMAtriptan 50 mg oral tablet)?TAKE 1 TABLET BY MOUTH NEEDED FOR MIGRAINE. Trazodone (traZODone 50 mg oral tablet)?TAKE 1-2 TABLET BY MOUTH NEEDED FOR SLEEP ? Allergies Allergies ?(Active and Proposed Allergies Only) LaMICtal? (Severity: Unknown severity, Onset: Unknown) ?Reactions: rash Compazine? (Severity: Unknown severity, Onset: Unknown) ?Reactions: rash masking effect Dust? (Severity: Unknown severity, Onset: Unknown) ?Reactions: hives Cats? (Severity: Unknown severity, Onset: Unknown) ?Reactions: rash, hives ? Hospital Course Daren is a 44-year-old woman with a past medical history significant for alcoholic liver cirrhosis, alcohol use disorder, chronic pancreatitis and opioid use disorder on methadone in the hospital setting of epigastric pain and bright red emesis.?? On initial presentation to the hospital patient noted to have mild tachycardia but was otherwise hemodynamically stable and laboratories to include aCBC and CMP were notable only for thrombocytopenia which is chronic, hypomagnesemia and a mildly elevated lactate which resolved quickly.?? Patient additionally was noted to have a positive ethanol level on presentation.?? Secondary to episode of hematemesis and ongoing nausea patient underwent a EGD which showed portal hypertensive gastropathy and was recommended to avoid alcohol and NSAIDs as well as placed on a PPI which she has been tolerating.?? Patient was monitored in the hospital for alcohol withdrawal for which she required Ativan and Valium but has now been titrated off these medications and no longer having any symptoms of withdrawal.?? Of note hospitalization also complicated byconstipation for which aggressive bowel regiment was needed before finally having success and patient prescribed a bowel regimen outpatient as constipation is likely secondary to her ongoing methadone use for her opioid use disorder and will need a bowel regimen continue regular movements.?? Given p atient is now successfully had a bowel movement and is no longer in withdrawal and hemoglobin is stable deemed appropriate for discharge??from the hospital and can follow-up with gastroenterology outpatient. ?? Alcohol withdrawal??(F10.939) Alcohol use disorder??(F10.9 Patient with a past medical history of alcohol use disorder that is active and her last drink was the day prior to presentation.?? Patient??had a blood alcohol level of 186 on 08/07 and was scoring on CIWA protocol requiring medication over course of hospitalization. ??She is now however no longer requiring medication. Mentation??improved today with discontinuation of sedating medications ??? Continue acamprosate ??? Outpatient follow-up with PCP for continued support of abstinence from alcohol ?? GI bleed??(K92.2) Hematemesis with nausea??(K92.0) Pancytopenia (D61.818) Presented with hematemesis??with nausea in the setting of??ongoing alcohol use EGD??done??on 08/08???portal hypertensive gastropathy Patient also noted to have small petechial lesion which is likely in the setting of thrombocytopenia and can be monitored ??? Continue PPI ??? Avoid alcohol and NSAIDs ??? Outpatient follow-up with gastroenterology ?? Polysubstance use disorder??(F19.90) Patient on methadone maintenance therapy??(F11.20) Patient with significant history of??polysubstance abuse. ??Currently??is on methadone 150 mg??which has been continued during his hospital stay. ?? Mentation??improving today??with discontinuation of Valium??and Ativan ???Continue home methadone dosing ?? Constipation: Likely due to methadone, has successfully had bowel movement now and we will make sure patient has bowel medications at home distant regular Chronic pancreatitis??(K86.1): Continue home pancrelipase Alcoholic liver disease??(K70.9)/ Cirrhosis: Continue lactulose Objective Vital Signs?? Temperature: 98.3 DegF (08/14/24 13:02:00) Temperature Route: Temporal (08/14/24 13:02:00) Pulse Rate: 68 bpm (08/14/24 13:02:00) Respiratory Rate: 16 br/min (08/14/24 15:10:00) Systolic Blood Pressure: 93 mm Hg (08/14/24 13:02:00) Diastolic Blood Pressure: 58 mm Hg (08/14/24 13:02:00) Blood pressure sites: Arm, right (08/14/24 13:02:00) Mean Arterial Pressure: 70 mm Hg (08/14/24 13:02:00) Pulse Pressure: 35 mm Hg (08/14/24 13:02:00) Oxygen Saturation:??90 %??Low (08/14/24 13:02:00) Liters per Minute: 2 L/min (08/14/24 01:31:00) Mode of Delivery (Oxygen): Room air (08/14/24 13:02:00) Early Warning Score:??10??Critical (08/14/24 15:19:56) ? . Physical Exam General Appearance: NAD. Eyes:??No scleral icterus. ENT: ??MM moist. Cardiovascular: RRR S1 and S2 Respiratory: ??Breath sounds clear GI: Soft. Nontender and nondistended.? MS: ??No edema or erythema in the lower extremities. Neuro: ??No slurred speech. Moving upper and lower extremities spontaneously. Psych: Alert and oriented x3.?? Surgical Procedures Gastroscopy (EGD) Diagnostic 08/08/2024 10:05 [facility] Gastro[facility] Follow-Up Appointments Added Follow Up ?Time Frame ?Comments Adebayo MARINELLI, Rebekah?3-5 day: call to discuss follow up visit Results Discharge Labs BLOOD COUNT & DIFF WBC 2.3 k/mm3 (Low)?? 08/13/2024 04:24 RBC 3.20 m/mm3 (Low)?? 08/13/2024 04:24 Hgb 9.9 Gm/dL (Low)?? 08/13/2024 04:24 Hct 32.2 % (Low)?? 08/13/2024 04:24 MCV 100.6 femtoliters (High)?? 08/13/2024 04:24 MCH 30.9 pg ()?? 08/13/2024 04:24 MCHC 30.7 Gm/dL (Low)?? 08/13/2024 04:24 Platelet Count 41 k/mm3 (Low)?? 08/13/2024 04:24 RDW-SD 66.9 femtoliters (High)?? 08/13/2024 04:24 MPV 12.3 femtoliters ()?? 08/13/2024 04:24 Nucleated RBC (Automated) 0.0 #/100 WBC'S ()?? 08/13/2024 04:24 Abs. NRBC 0.0 k/mm3 ()?? 08/13/2024 04:24 Abs. Neut 1.8 k/mm3 ()?? 08/08/2024 01:12 Abs. Lymph 0.7 k/mm3 (Low)?? 08/08/2024 01:12 Abs. Mckinley 0.2 k/mm3 (Low)?? 08/08/2024 01:12 Abs. Eo 0.0 k/mm3 ()?? 08/08/2024 01:12 Abs. Baso 0.0 k/mm3 ()?? 08/08/2024 01:12 Neut % 64.2 % ()?? 08/08/2024 01:12 Lymph % 25.6 % ()?? 08/08/2024 01:12 Mckinley % 8.7 % ()?? 08/08/2024 01:12 Eos % 1.1 % ()?? 08/08/2024 01:12 Baso % 0.4 % ()?? 08/08/2024 01:12 Imm Gran 0.0 % ()?? 08/08/2024 01:12 Abs. Imm Gran 0.0 k/mm3 ()?? 08/08/2024 01:12 ?? CHEM GENERAL Sodium 135 mmol/L ()?? 08/13/2024 04:24 Potassium 3.9 mmol/L ()?? 08/13/2024 04:24 Chloride 100 mmol/L ()?? 08/13/2024 04:24 Bicarbonate Level 25 mmol/L ()?? 08/13/2024 04:24 Anion Gap 10 ()?? 08/13/2024 04:24 Glucose Level 135 mg/dL (High)?? 08/10/2024 19:14 BUN 11 mg/dL ()?? 08/13/2024 04:24 Creatinine-Blood 0.67 mg/dL ()?? 08/13/2024 04:24 Estimated GFR Creatinine 110 ML/MIN/1.73 M2 ()?? 08/13/2024 04:24 Calcium 9.1 mg/dL ()?? 08/10/2024 19:14 Phosphorus 3.5 mg/dL ()?? 08/08/2024 01:12 Magnesium 1.8 mg/dL ()?? 08/13/2024 04:24 Protein, Total 6.9 Gm/dL ()?? 08/09/2024 08:40 Albumin 3.4 Gm/dL ()?? 08/09/2024 08:40 AG Ratio 0.9 ()?? 08/07/2024 14:02 Alkaline Phosphatase 103 units/L ()?? 08/09/2024 08:40 Lipase 49 units/L ()?? 08/07/2024 14:02 AST (SGOT) 100 units/L (High)?? 08/09/2024 08:40 ALT (SGPT) 27 units/L ()?? 08/09/2024 08:40 Bilirubin, Total 3.0 mg/dL (High)?? 08/09/2024 08:40 Bilirubin, Direct 1.4 mg/dL (High)?? 08/09/2024 08:40 Bilirubin, Indirect 1.6 mg/dL (High)?? 08/09/2024 08:40 Lactate 1.0 mmol/L ()?? 08/08/2024 07:37 ? COAG INR 1.9 (High)?? 08/09/2024 08:41 Protime (PT) 18.8 seconds (High)?? 08/09/2024 08:41 ?? ENDOCRINE/TUMOR MARKER TSH 0.82 uIU/mL ()?? 08/07/2024 14:02 Blood <1 mIU/mL ()?? 08/07/2024 14:02 ?? HEME OTHER Hold Lavender Top SPECIMEN DISCARDED AFTER 24 HOURS. ()?? 08/10/2024 19:14 ? MISC. CHEMISTRY Hold Green Top SPECIMEN DISCARDED AFTER 1 WEEK ()?? 08/08/2024 07:37 ? TOXICOLOGY/TDM Ethanol, Serum or Plasma 186 mg/dL (Abnormal)?? 08/07/2024 14:02 Barbiturate Screen, Urine NONE DETECTED ()?? 08/09/2024 17:00 Cannabinoid Screen, Urine NONE DETECTED ()?? 08/09/2024 17:00 Cocaine Metabolite Screen, Urine NONE DETECTED ()?? 08/09/2024 17:00 Benzodiazepine Screen, Urine POSITIVE (Abnormal)?? 08/09/2024 17:00 Amphetamine Screen, Urine NONE DETECTED ()?? 08/09/2024 17:00 Opiate Screen, Urine NONE DETECTED ()?? 08/09/2024 17:00 ? UA/URINALYSIS Appear/Color, Urine YELLOW ()?? 08/08/2024 05:30 Specific [place], Urine 1.015 ()?? 08/08/2024 05:30 pH, Urine 7.0 ()?? 08/08/2024 05:30 Albumin, Urine NEGATIVE ()?? 08/08/2024 05:30 Glucose, Urine NEGATIVE ()?? 08/08/2024 05:30 Ketones, Urine NEGATIVE ()?? 08/08/2024 05:30 Bilirubin, Urine NEGATIVE ()?? 08/08/2024 05:30 Hemoglobin, Urine NEGATIVE ()?? 08/08/2024 05:30 Nitrite, Urine NEGATIVE ()?? 08/08/2024 05:30 Leukocyte, Urine TRACE (Abnormal)?? 08/08/2024 05:30 Urobilinogen 8 mg/dL (Abnormal)?? 08/08/2024 05:30 WBC's, Urine 1 /HPF ()?? 08/08/2024 05:30 RBC's, Urine 2 /HPF ()?? 08/08/2024 05:30 Bacteria SLIGHT HPF (Abnormal)?? 08/08/2024 05:30 Squamous Epith 1 /HPF ()?? 08/08/2024 05:30 Mucus SLIGHT /LPF ()?? 08/08/2024 05:30 Hold Urine Culture Testing available 48 hours from time of collection. ()?? 08/08/2024 05:30 ? URINE OTHER Est Creatinine Clearance 92.23 mL/min ()?? 08/13/2024 05:34 ? 35??minutes spent on discharge * Salvador Florentino DO: PERFORM Event Display: Discharge/Transfer Note Hospital Authored Date: [id number] Apparently previous to discharge patient was stating that she was not feeling well??and discharge was canceled. ??Note to serve as progress note. * Emely Rowan RN: MODIFY Emely Rowan RN: MODIFY Event Display: Patient Education/Instruction Authored Date: [id number] Inpatient Adult Discharge Instructions. [address] [address] Name: DAREN FITZGERALD : 1980?? Visit: 08/07/2024 17:26?? Current Date: 08/14/2024 17:48 ?? Account: [id number]?? Inpatient Adult Discharge Instructions We would like [...] and their families. Surveys are administered by [employer] ?? If further treatment with your primary care physician or another doctor is recommended, it is important for you to keep the appointment. Call your primary care physician or return to the Emergency Department immediately if your condition worsens, fails to improve, or new symptoms develop. If you need to find a doctor, you can call [facility] [employer] for a referral at [phone] or toll free at [phone]) or log in to [email or web address].. ?? [facility], in keeping with [facility] guidance, no longer requires face masks [...] a health care amberly of your choosing. [employer] is a website that allows you to securely view your medical information including your hospital discharge summary, office visit summaries, medications and follow-up visits. You can also request appointments, renew medications, and request access to your medical information using a health care amberly of your choosing, or just ask a question. You can enroll at [email or web address] or register during your next office visit. You have been discharged from [facility], Patient Care Unit: M7??. If you have any questions regarding these instructions, including results of studies pending, afteryou leave, please call us and we will be happy to assist you 20/05. [facility] Your Care Team Attending Physician Salvador Florentino DO?? Consulting Providers Salvador Florentino DO?? Discharging Providers Salvador Florentino DO Reason for Your Visit Pt coming from home with c/o bright red emesis for the past couple months experiencing weakness, hx etoh , last drink yesterday last night, just recently began drinking again. Denies hx seizures. Pt denies abdominal pain. Pt denies blood thinners?? Your Diagnosis Alcohol use disorder Hematemesis with nausea Polysubstance use disorder Patient on methadone maintenance therapy Prolonged QT interval Abdominal pain Chronic pancreatitis Alcoholic liver disease Hypomagnesemia Pancytopenia Portal hypertensive gastropathy Tests Performed Below is a partial list of the tests performed during your hospitalization. You may have had other tests and procedures not included in this list. Please discuss all test results with your provider. Basic Metabolic Panel BUN CBC CBC w/ Differential Comprehensive Metabolic Panel Creatinine Electrolytes Ethanol Level HOLD GREEN TUBE HOLD LAVENDER TUBE INR Lactate Level LFT's Lipase Magnesium Level Phosphorus Level Serum Quantitative TSH with T4 Reflex (Adults Only) Urinalysis w/hold for Urine Culture Urine Amphetamine Screen Urine Barbiturate Screen Urine Benzodiazepine Screen Urine Cocaine Screen Urine Marijuana Screen Urine Opiate Screen US Liver XR KUB or Abdomen Amphetamine Urine Screen (Urine Amphetamine Screen)?? BUN?? Barbiturate Urine Screen (Urine Barbiturate Screen)?? Basic Metabolic Panel?? Benzodiazepine Urine Screen (Urine Benzodiazepine Screen)?? Beta HCG Serum (Females Only) ( Serum Quantitative)?? CBC?? CBC w/ Differential?? Cannabinoid Urine Screen (Urine Marijuana Screen)?? Cocaine Urine Screen (Urine Cocaine Screen)?? Comprehensive Metabolic Panel?? Creatinine?? Electrolytes?? Ethanol Level?? Hepatic Function Panel (LFT's)?? Hold Green Top Tube (HOLD GREEN TUBE)?? Hold Lavender Top Tube (HOLD LAVENDER TUBE)?? INR?? Lactic Acid Level (Lactate Level)?? Lipase?? Magnesium Level?? Opiate Screen Urine (Urine Opiate Screen)?? Phosphorus Level?? TSH with T4 Reflex (Adults Only)?? US Liver?? Urinalysis w/hold for Urine Culture?? XR Abdomen AP (XR KUB or Abdomen)?? Primary Care Provider Rebekah Fiore MD? Advance Directive Health Care Proxy on File Yes - Health Care Proxy Discharge Vitals Temperature: 98.3 DegF Height: 163 cm Pulse Rate: 68 bpm Weight: 86.7 kg Respiratory Rate: 16 br/min Body Mass Index:??31.13 kg/m2??Critical Systolic Blood Pressure: 93 mm Hg Body surface area: 1.94 Diastolic Blood Pressure: 58 mm Hg ?? Oxygen Saturation:??90 %??Low ?? Studies Pending All studies ordered during this hospital stay have been completed unless listed below. Please discuss all pending results with your provider listed above in these instructions. ?? No incomplete studies found?? What to do next Instructions From Your Doctor ?? Orders? 08/14/24 16:40:00 EDT?? Prescriptions??, ??08/14/24 16:40:00 EDT?? You Need to Schedule the Following Appointments Follow Up with??Rebekah Fiore MD When:??Within 3-5 day: call to discuss follow up visit, only if needed Where: [address] [place] [address] [place] [address]- Discharge Medications DAREN FITZGERALD :1980 Visit Date:08/07/2024 Medications: Please continue your medications until treatment is completed or stopped by your provider. Medications not listed below should be discontinued. Discuss any questions related to medications with your provider. What How Much When Instructions Next Dose New Docusate (docusate sodium 100 mg oral capsule) 1 capsule Oral Daily as needed for Constipation Duration: 30 Days Refills: 2 Pickup at [facility] 3 as needed Changed Acamprosate (acamprosate 333 mg oral delayed release tablet) 1 tab(s) Oral 3 times a day tonight 08/15 Changed Albuterol (albuterol CFC free 90 mcg/ inh inhalation aerosol) 2 puff(s) Inhalation 4 times a day as needed for as needed for wheezing as needed Changed Ferrous Sulfate (ferrous sulfate 325 mg oral enteric coated tablet) 1 tab(s) Oral Daily tomorrow 08/15 Unchanged Cyclopentolate Ophthalmic (cyclopentolate 1% ophthalmic solution) 1 Drops Right eye 3 times a day Duration: 5 Days tonight 08/15 Unchanged Gabapentin (gabapentin 600 mg oral tablet) 1 tab(s) Oral 3 times a day tonight 08/15 Unchanged HydrOXYzine (hydrOXYzine hydrochloride 25 mg oral tablet) 1 tab(s) Oral Twice a day as needed for anxiety as needed Unchanged Lactulose (lactulose 10 gm/ 15 ml oral syrup) 15 Milliliter Oral Twice a day as needed for as needed for constipation as needed Unchanged Magnesium Oxide (magnesium oxide 500 mg oral capsule) 1 capsule Oral Daily tomorrow 10 Unchanged Methadone (methadone 10 mg/ 5 mL oral solution) 75 Milliliter Oral Daily tomorrow 1020 Unchanged Multivitamin (Multivitamin Tablet) 1 tab(s) Oral Daily tomorrow 1020 Unchanged Pancrelipase (Creon 36,000 units oral delayed release capsule) 1 capsule Oral 3 times a day with each meal and snack ?? tomorrow 10 Unchanged Pancrelipase (Creon 36,000 units oral delayed release capsule) 1 capsule Oral 3 times a day tomorrow 1020 Unchanged Pantoprazole (pantoprazole 40 mg oral delayed release tablet) 1 tab(s) Oral Daily tomorrow 1020 Unchanged Polyethylene Glycol 3350 (polyethylene glycol 3350 oral powder for reconstitution) 17 gram Oral Daily dissolve in 4 to 8 oz of beverage. Take once daily, or up to three times daily as needed for regular soft stools ?? Pickup at [facility] 3 as needed Unchanged Sumatriptan (SUMAtriptan 50 mg oral tablet) TAKE 1 TABLET BY MOUTH NEEDED FOR MIGRAINE. ?? as needed Unchanged Trazodone (traZODone 50 mg oral tablet) TAKE 1-2 TABLET BY MOUTH NEEDED FOR SLEEP ?? as needed Pharmacy Information [facility] 3: [address] [place], [place] [id number] [phone] ?? What How Much When Comments Stop Taking Ibuprofen (ibuprofen 600 mg oral tablet) TAKE 1 TABLET BY MOUTH TWICE A DAY NEEDED FOR PAIN ?? *stop taking* Stop Taking Lorazepam (LORazepam 1 mg oral tablet) TAKE 1 TABLET BY MOUTH DAILY,X7 DAYS NEEDED FOR ANXIETY ?? *stop taking* Stop Taking moxifloxacin ophthalmic (Moxifloxacin (Eqv-Vigamox) 0.5% ophthalmic solution) INSTILL 1 DROP INTO RIGHT EYE EVERY 4 HOURS FOR 3 DAYS ?? *stop taking* Stop Taking Ondansetron (ondansetron 4 mg oral tablet) 1 tab(s) Oral Every 8 hours as needed for Nausea & Vomiting Duration: 7 Days *stop taking* Stop Taking Ondansetron (ondansetron 4 mg oral tablet) 1 tab(s) Oral Every 8 hours as needed for Nausea & Vomiting *stop taking* Prescription Given During Visit Docusate (docusate sodium 100 mg oral capsule) - 1 capsule = 100 mg, By Mouth, Daily, # 30 capsule,2 Refills, [facility] [address], [address] [place] [phone] [phone]?? Polyethylene Glycol 3350 (polyethylene glycol 3350 oral powder for reconstitution) - 17 Gm, By Mouth, Daily, # 250 Gm, 1 Refills, dissolve in 4 to 8 oz of beverage. Take once daily, or up to three times daily as needed for regular soft stools, [facility] [address], [address] [place] [phone] [phone]?? Laboratory Results Below is a partial list of the most recent Laboratory test results done prior to this discharge. You may have had other tests and procedures not included in this list. Please discuss all test resultswith your provider. Est Creatinine Clearance - 92.23 mL/min (08/13/2024) Basic Metabolic Panel (08/10/2024) ???Sodium - 136 mmol/L???Potassium - 4.1 mmol/L???Chloride - 101 mmol/L???Bicarbonate Level - 26 mmol/L???Anion Gap - 9???Glucose Level - 135 mg/dL???BUN - 7 mg/dL???Creatinine-Blood - 0.89 mg/dL???Estimated GFR Creatinine - 81 ML/MIN/1.73 M2???Calcium - 9.1 mg/dL BUN (08/13/2024) ???BUN - 11 mg/dL CBC (08/13/2024) ???WBC - 2.3 k/mm3???RBC - 3.20 m/mm3???Hgb - 9.9 Gm/dL???Hct - 32.2 %???MCV - 100.6 femtoliters???MCH - 30.9 pg???MCHC - 30.7 Gm/dL???Platelet Count - 41 k/mm3???RDW-SD - 66.9 femtoliters???MPV - 12.3 femtoliters???Nucleated RBC (Automated) - 0.0 #/100 WBC'S???Abs. NRBC - 0.0 k/mm3 CBC w/ Differential (08/08/2024) ???WBC - 2.8 k/mm3???RBC - 3.20 m/mm3???Hgb - 9.8 Gm/dL???Hct - 30.8 %???MCV - 96.3 femtoliters???MCH - 30.6 pg???MCHC - 31.8 Gm/dL???Platelet Count - 39 k/mm3???RDW-SD - 62.2 femtoliters???MPV - 9.3femtoliters???Nucleated RBC (Automated) - 0.0 #/100 WBC'S???Abs. NRBC - 0.0 k/mm3???Abs. Neut - 1.8 k/mm3???Abs. Lymph - 0.7 k/mm3???Abs. Mckinley - 0.2 k/mm3???Abs. Eo - 0.0 k/mm3???Abs. Baso - 0.0 k/mm3???Neut % - 64.2 %???Lymph % - 25.6 %???Mckinley % - 8.7 %???Eos % - 1.1 %???Baso % - 0.4 %???Imm Gran - 0.0 %???Abs. Imm Gran - 0.0 k/mm3 Comprehensive Metabolic Panel (08/07/2024) ???Sodium - 142 mmol/L???Potassium - 4.1 mmol/L???Chloride - 101 mmol/L???Bicarbonate Level - 28 mmol/L???Anion Gap - 13???Glucose Level - 87 mg/dL???BUN - 4 mg/dL???Creatinine-Blood - 0.71 mg/dL???Estimated GFR Creatinine - 107 ML/MIN/1.73 M2???Calcium - 8.5 mg/dL???Protein, Total - 7.3 Gm/dL???Alb umin - 3.5 Gm/dL???AG Ratio - 0.9???Alkaline Phosphatase - 103 units/L???AST (SGOT) - 149 units/L???ALT (SGPT) - 33 units/L???Bilirubin, Total - 2.9 mg/dL Creatinine (08/13/2024) ???Creatinine-Blood - 0.67 mg/dL???Estimated GFR Creatinine - 110 ML/MIN/1.73 M2 Electrolytes (08/13/2024) ???Sodium - 135 mmol/L???Potassium - 3.9 mmol/L???Chloride - 100 mmol/L???Bicarbonate Level - 25 mmol/L???Anion Gap - 10 Ethanol Level (08/07/2024) ???Ethanol, Serum or Plasma - 186 mg/dL HOLD GREEN TUBE (08/08/2024) ???Hold Green Top - SPECIMEN DISCARDED AFTER 1 WEEK HOLD LAVENDER TUBE (08/10/2024) ???Hold Lavender Top - SPECIMEN DISCARDED AFTER 24 HOURS. INR (08/09/2024) ???INR - 1.9???Protime (PT) - 18.8 seconds Lactate Level (08/08/2024) ???Lactate - 1.0 mmol/L LFT's (08/09/2024) ???Protein, Total - 6.9 Gm/dL???Albumin - 3.4 Gm/dL???Alkaline Phosphatase - 103 units/L???AST (SGOT) - 100 units/L???ALT (SGPT) - 27 units/L???Bilirubin, Total - 3.0 mg/dL???Bilirubin, Direct - 1.4 mg/dL???Bilirubin, Indirect - 1.6 mg/dL Lipase (08/07/2024) ???Lipase - 49 units/L Magnesium Level (08/13/2024) ???Magnesium - 1.8 mg/dL Phosphorus Level (08/08/2024) ???Phosphorus - 3.5 mg/dL Serum Quantitative (08/07/2024) ? ?Blood - <1 mIU/mL TSH with T4 Reflex (Adults Only) (08/07/2024) ???TSH - 0.82 uIU/mL Urinalysis w/hold for Urine Culture (08/08/2024) ???Appear/Color, Urine - YELLOW???Specific [place], Urine - 1.015???pH, Urine - 7.0???Albumin, Urine - NEGATIVE???Glucose, Urine - NEGATIVE???Ketones, Urine - NEGATIVE???Bilirubin, Urine - NEGATIVE???Hemoglobin, Urine - NEGATIVE???Nitrite, Urine - NEGATIVE???Leukocyte, Urine - TRACE???Urobilinogen - 8 mg/dL???WBC's, Urine - 1 /HPF???RBC's, Urine - 2 /HPF???Bacteria - SLIGHT???Squamous Epith - 1 /HPF???Mucus - SLIGHT???Hold Urine Culture - Testing available 48 hours from time of collection. Urine Amphetamine Screen (08/09/2024) ???Amphetamine Screen, Urine - NONE DETECTED Urine Barbiturate Screen (08/09/2024) ???Barbiturate Screen, Urine - NONE DETECTED Urine Benzodiazepine Screen (08/09/2024) ???Benzodiazepine Screen, Urine - POSITIVE Urine Cocaine Screen (08/09/2024) ???Cocaine Metabolite Screen, Urine - NONE DETECTED Urine Marijuana Screen (08/09/2024) ???Cannabinoid Screen, Urine - NONE DETECTED Urine Opiate Screen (08/09/2024) ???Opiate Screen, Urine - NONE DETECTED You will be contacted within 72 hours [...] Discharge Instructions. [employer] Patient Education - When You Have Gastrointestinal (GI) Bleeding?? [employer] Patient Education - Zones GI Bleed?? [employer] Patient Education - Understanding Alcohol Use Disorder (AUD)?? [employer] Patient Education - Alcoholism: Getting Help?? [employer] Patient Education - Social Drinking vs. Problem Drinking?? [employer] Patient Education - Alcohol and Substance Abuse Disorder Resources?? [employer] Patient Education - Alcohol Abuse?? Valuables and Belongings I fully understand and agree that [facility] accepts no responsibility for all my [...] to send valuables and belongings home. ?? No Valuables/Belongings: No valuables/belongings present Review of Valuable and Belonging List: With patient Date for Pt to Sign Valuables/Belongings: 08/09/24 05:43:00 ?? Other Discharge Information ? Case Management Discharge Plan?? Discharge Plan?? Discharge Rx Program: Discharge Prescription Program ?? Pulmonary Rehab Status?? Pulmonary Rehab Discharge [...] are strongly encouraged to quit. Please call [facility] [employer] Link at [phone] or [phone]) or log in to [email or web address] for referrals to smoking cessation programs. ?? 988 Suicide & Crisis Lifeline is available 20/05 if you or someone you know needs to find a reason to keep living. By calling 913 you'll be connected to a skilled, trained counselor at a crisis center in your area. INPATIENT DISCHARGE INSTRUCTIONS SIGNATURE DAREN GUARDADO Location:[facility] Registration Date and Time:08/07/2024 17:26 EDT Primary Care Physician: Adebayo MARINELLI [facility], Attending Physician: Salvador Florentino DO, DAREN VANN, have received the above patient education materials/instructions and have verbalized understanding. If ambulance or transport services are being used I further acknowledge being given a choice of service. ?? If you need to contact me, please call me at this number: . Patient/Lawn Specialist Name: Patient/Lawn Specialist Signature: Relationship to Patient: Witness Name/Signature: Date: * Sasha Tapia RN: PERFORM Event Display: Patient Education Leaflets Authored Date: [id number] When You Have Gastrointestinal (GI) Bleeding ?? [id number] When You Have Gastrointestinal (GI) Bleeding Blood in your vomit or stool can be a sign of gastrointestinal (GI) bleeding. GI bleeding can be scary. But the cause may not be serious. You should??always??see your healthcare provider if you have GI bleeding. The GI tract is the path through which??food travels in the body. Food passes from the mouth down the esophagus. This is the tube from the mouth to the stomach. Food starts to break down in the stomach. It then moves through the duodenum, the first part of the small intestine. Nutrients are absorbed as food travels through the small intestine. What is left passes into the colon (large intestine) as waste. The colon removes water from the waste. Waste continues from the colon to the rectum (where stool is stored). Waste then leaves the body through the anus. The upper GI tract is from the mouth through the duodenum. The lower GI tract is from the end of the duodenum to the anus. Causes of GI bleeding GI bleeding can be caused by many different problems. Some of the more common causes include: ??? Swollen veins in the anus (hemorrhoids) ??? Swollen veins in the esophagus (varices) ??? Sores (ulcers) on the lining of the GI tract ??? Cuts or scrapes in the mouth or throat ??? Infection caused by germs such as bacteria or parasites ??? Food allergies, such as milk allergy in young children ??? Medicines, especially aspirin, blood thinners, and NSAIDs (non-steroidal anti-inflammatory drugs) such as ibuprofen ??? Inflammation of the GI tract (gastritis or esophagitis) ??? Colitis (Crohn's disease or ulcerative colitis) ??? Cancer (tumors or polyps) ??? Abnormal pouches in the colon (diverticula) ??? Tears in the esophagus or anus ??? Nosebleed ??? Abnormal blood vessels in the GI tract (angiodysplasia) ?? Diagnosing the cause of blood in stool If blood is coming out in your stool, you may have a lower GI tract problem??or a very fast upper GI tract bleed. Bleeding from the GI tract can be bright red. Or it may look dark and tarry.??Tests may also find blood in your stool that can???t be seen with the eye (occult blood). To find out the cause, tests that may be ordered include: ??? Blood tests. A blood sample is taken and sent to a lab for exam. ??? Hemoccult test. Checks a stool sample for blood. ??? Stool culture and other stool-based tests. These check a stool sample for bacteria or parasites, inflammation, and other problems. ??? X-ray, ultrasound, nuclear scan, or CT scan. Imaging tests that take pictures of the digestive tract. ??? Colonoscopy or sigmoidoscopy. This test uses a flexible tube with a tiny camera. The tube isinserted through your anus into your rectum to see the inside of your colon. Your healthcare provider can also take a tiny tissue sample (biopsy) to be looked at in a lab. They can also treat a bleeding source. ??? Capsule endoscopy. This test uses a tiny camera that is swallowed, passes through the intestine, and takes pictures of the small intestine. This is harder to reach with scopes. ?? Diagnosing the cause of blood in vomit If you are vomiting blood or something that looks like coffee grounds,??you may have an upper GI tract problem. To find the cause, tests that may be done include: ??? Upper endoscopy. A flexible tubewith a tiny camera is inserted through your mouth and throat to see inside your upper GI tract. This lets your healthcare provider take a tiny tissue sample (biopsy) to be looked at in a lab. They can also treat a bleeding source. ??? Nasogastric lavage and aspiration. The provider may withdraw some of the fluid in the stomach to test it for bleeding. This can sometimes tell if you have upper GI or lower GI bleeding. ??? X-ray, ultrasound, nuclear scan, or CT scan. Imaging tests that take pictures of your digestive tract. ??? Upper GI series. X-rays of the upper part of your GI tract that aretaken after you swallow a contrast drink. ??? Enteroscopy. This sends a flexible tube or a small, swallowed capsule camera into your small intestine. ?? Call 911 Call 911 if any of these occur: ??? Bleeding from your mouth or anus that can't be stopped ??? Bleeding along with feeling lightheaded or dizzy ?? When to call your healthcare provider Call your healthcare provider right away if you have any of the following: ??? Fever of 100.4?? F??( 38.0??) C or above, or as advised by your provider ??? Signs of fluid loss (dehydration). These include a dry, sticky mouth, decreased urine output, and very dark urine. ??? Belly (abdominal) pain ?? Last Reviewed Date: 2023 ?? 7712-7421 [employer]. All rights reserved. This information is not intended as a substitute for professional medical care. Always follow your healthcare professional's instructions. ?? Patient Care team information Care Team Personnel Name: Melva Ochoa RN Position: [facility] RN Member Role: Primary Care Nurse Name: Tiffanie Fall RN Position: S RN Member Role: Primary Care Nurse Name: Anne Chadwick RN Position: S RN Member Role: Primary Care Nurse Name: Keerthi Gates RN Position: S RN Member Role: Primary Care Nurse Name: Lucita Victoria Position: [facility] RN Supv Member Role: Primary Care Nurse Name: Sasha Tapia RN Position: [facility] RN Member Role: Primary Care Nurse Name: Mateus uV RN Position: [facility] RN Member Role: Primary Care Nurse Name: Trev Avendaño RN Position: [facility] RN Member Role: Primary Care Nurse Name: Hazel Rivero MD Position: [facility] PULVERIZER FEEDER MD Member Role: [employer] PULVERIZER FEEDER Physician Address: Address: [address] [place] [address] [facility] [place] [address]- Name: Linsey Mcmullen RN Position: [facility] RN Member Role: Primary Care Nurse Name: Catrachito Varela RN Position: [facility] RN Member Role: Primary Care Nurse Name: Angela Almaguer RN Position: [facility] RN Member Role: Primary Care Nurse Name: Rebekah Fiore MD Position: Reference Physician Member Role: PCP Address: Address: [address] [place] [address] [place] [address]- Name: Digna Roque RN Position: [facility] RN Member Role: Primary Care Nurse Name: Klever Roblero RN Position: [facility] RN Member Role: Primary Care Nurse Name: Cynthia Steven RN Position: [facility] RN Supv Member Role: Primary Care Nurse Name: Seun Segura RN Position: [facility] RN Member Role: Primary Care Nurse Name: Lissa Winters RN Position: [facility] RN Member Role: Primary Care Nurse Name: Jerrica Melton RN Position: [facility] RN Member Role: Primary Care Nurse Name: Terry Sanchez RN Position: [facility] RN Member Role: Primary Care Nurse Care Team Related Persons Name: JUAN RAMON FITZGERALD Address: home [phone] [place] [address] Name: OLGA PRINGLE Address: home [address] [place] [address] [place] [address] Name: NICK POON
[2024-09-25 19:20] LABS: Appearance Urine Clear; Color Urine Dark Yellow; Glucose Urine UA Negative (Negative); Leukocyte Esterase Urine Trace (Negative); Nitrite Urine Negative (Negative); PH 6.5 (5.0-9.0); Specific Gravity - Urine 1.015 (1.005-1.025); UMIC TRIGGER UACC YES; Urine Blood Negative (Negative); Urine Ketones Trace mg/dL (Negative); Urine Protein Negative (Neg-Trace)
[2024-09-25 19:21] LABS: UPreg QC Valid YES; Urine Pregnancy NEGATIVE (NEGATIVE)
[2024-09-25 19:51] LABS: Bacteria Urine Trace (None Seen); Hyaline Casts Urine 0-2 /LPF (0-2); RBC Urine 0-2 /HPF (0-2); WBC Urine 0-5 /HPF (0-5)
[2024-09-25] MEDS: LORazepam 1 MG TABLET 2 MG PO (20:01)
--- NOTE | 2024-09-25 20:08 | HE.PHANOTE ---
RE: METHADONE DOSING Last dose of methadone 150 mg given on 09/23/24 and pt has 13 bottles (from 09/17/24) per [facility] [phone].
[2024-09-25 20:28] LABS: Basophils Percent Auto 0.8 % (0-2); Eosinophils Absolute Auto 0.1 X10*3/uL (0.0-0.4); Eosinophils Percent Auto 2.1 % (0-4); Hematocrit 30.5 % (37.0-47.0); Hemoglobin 10.1 g/dl (12.0-16.0); Lymphocytes Absolute Auto 1.1 X10*3/uL (1.2-4.9); Lymphocytes Percent Auto 45.4 % (20-40); Mean Corpuscular HGB Conc 33.1 g/dl (31.0-35.0); Mean Corpuscular Hemoglobin 31.3 pg (27.0-33.0); Mean Corpuscular Volume 94.4 fL (80.0-98.0); Mean Platelet Volume 10.2 fL (9.4-12.3); Monocytes Absolute Auto 0.2 X10*3/uL (0.1-1.2); Monocytes Percent Auto 6.3 % (2-11); Neutrophils Absolute Auto 1.1 x10*3/uL (2.0-8.3); Neutrophils Percent Auto 45.4 % (45-73); Red Blood Count 3.23 X10*6/uL (4.20-5.50); Red Cell Distribution Width 20.5 % (11.0-16.0); SCAN SMEAR FLAG 1
[2024-09-25 20:31] LABS: MANUAL DIFF FLAG SCAN; White Blood Count 2.4 X10*3/uL (4.8-10.8)
[2024-09-25 20:40] LABS: Ethanol 328 mg/dL
[2024-09-25 20:47] LABS: Acetaminophen LAB < 3 mcg/mL (<30); Alanine Aminotransferase 35 U/L (0-31); Alkaline Phosphatase 86 U/L (39-117); Anion Gap 12 (12-20); Aspartate Amino Transferase 162 U/L (5-31); Bilirubin Direct 1.6 mg/dL (0.0-0.5); Bilirubin Total 2.9 mg/dL (0.0-1.0); Blood Urea Nitrogen 4 mg/dL (9-16); Calcium 7.7 mg/dL (8.4-10.2); Carbon Dioxide 31 mmol/L (22-29); Chloride 102 mmol/L (96-108); Creatinine Clr Calc Pharmacy 103.4; Estimated Glomerular Filt Rate > 60; Glucose Random 99 mg/dL (60-115); Potassium 3.2 mmol/L (3.3-5.1); Salicylate < 5.0 mg/dL (15-30); Sodium 142 mmol/L (135-145); Total Protein 6.4 g/dL (6.5-8.0)
[2024-09-25 20:54] LABS: Amphetamine Screen Urine Not Detected (Not Detect); Barbiturates, Urine Not Detected (Not Detect); Benzodiazepines Screen Urine POSITIVE (Not Detect); Buprenorphine Scr Not Detected (Not Detect); Cannabinoid Screen Urine Not Detected (Not Detect); Cocaine Screen Urine Not Detected (Not Detect); Fentanyl, urine Not Detected (Not Detect); Methadone Screen, Urine Positive (Not Detect); Opiate Screen Urine Not Detected (Not Detect); Oxycodone Screen Urine Not Detected (Not Detect); Phencyclidine Screen Urine Not Detected (Not Detect)
[2024-09-25 21:10] LABS: Platelet Count 35 X10*3/uL (160-400); SLIDE REVIEW VERIFIED
[2024-09-25 21:56] LABS: Lipase 41 U/L (8-78)
[2024-09-25 22:27] LABS: Magnesium 1.4 mg/dL (1.6-2.6)
[2024-09-25] MEDS: LORazepam 1 MG TABLET 0.5 MG PO (22:36)
[2024-09-25] MEDS: Potassium Chloride ER 20 MEQ TAB.ER.PRT 40 MEQ PO (22:37)
[2024-09-25 23:22] VITALS: BP 118/70; PULSE 82; RESP 12; TEMP 37.1; O2SAT 96
[2024-09-25] MEDS: Magnesium Sulfate/H2O 2 GM/50 ML PIGGYBACK IV (23:22)
[2024-09-25] MEDS: Calcium Gluconate/NaCl,Iso-Osm 2 GM/100 ML PLAST..BAG IV (23:47)
--- NOTE | 2024-09-26 00:56 | PC.NURSE ---
this rn assumed care of pt from pod @ 2300. 20g iv placed in R AC pt medicated according to dec. 1:[address]
--- NOTE | 2024-09-26 01:45 | PC.NURSE ---
meds completed per dr albert repeat cmp @ 0500 order placed. iv removed
[2024-09-26 02:02] VITALS: PULSE 80; RESP 16; TEMP 36.8; O2SAT 92
--- NOTE | 2024-09-26 02:15 | ECG_ITS ---
Test Reason : med clear Blood Pressure : / mmHG Vent. Rate : 072 BPM Atrial Rate : 072 BPM P-R Int : 190 ms QRS Dur : 092 ms QT Int : 446 ms P-R-T Axes : 051 015 048 degrees QTc Int : 488 ms Normal sinus rhythm cannot exclude prior septal infarct, could be related to body habitus. Prolonged QT When compared with ECG of 27-JUN-2021 13:19, QT has lengthened Referred By: Patel Penny Electronically Signed By:YINA ALVAREZ
[2024-09-26] MEDS: LORazepam 1 MG TABLET 0.5 MG PO ×5 (03:12→22:10)
[2024-09-26] MEDS: Omeprazole 20 MG CAPSULE.DR PO (06:18)
[2024-09-26 06:28] LABS: Hematocrit 29.4 % (37.0-47.0); Hemoglobin 9.7 g/dl (12.0-16.0); Mean Corpuscular Hemoglobin 31.4 pg (27.0-33.0); Mean Corpuscular Volume 95.1 fL (80.0-98.0); Mean Platelet Volume 9.9 fL (9.4-12.3); Red Blood Count 3.09 X10*6/uL (4.20-5.50); Red Cell Distribution Width 20.5 % (11.0-16.0)
[2024-09-26 06:29] LABS: Platelet Count 31 X10*3/uL (160-400)
[2024-09-26 06:41] LABS: Alanine Aminotransferase 28 U/L (0-31); Albumin Level 2.5 g/dL (3.5-5.0); Alkaline Phosphatase 72 U/L (39-117); Anion Gap 12 (12-20); Aspartate Amino Transferase 133 U/L (5-31); Bilirubin Total 2.4 mg/dL (0.0-1.0); Blood Urea Nitrogen 5 mg/dL (9-16); Calcium 7.4 mg/dL (8.4-10.2); Carbon Dioxide 32 mmol/L (22-29); Chloride 105 mmol/L (96-108); Estimated Glomerular Filt Rate > 60; Glucose Random 136 mg/dL (60-115); Magnesium 1.6 mg/dL (1.6-2.6); Potassium 3.5 mmol/L (3.3-5.1); Sodium 145 mmol/L (135-145); Total Protein 5.6 g/dL (6.5-8.0)
[2024-09-26] MEDS: Docusate Sodium 100 MG CAPSULE PO (08:53)
[2024-09-26] MEDS: LORazepam 1 MG TABLET PO (08:53)
[2024-09-26] MEDS: Ondansetron ODT 4 MG TAB.RAPDIS TRANSLINGU (08:53)
[2024-09-26] MEDS: LIPASE PROTEASE AMYLASE 1 EACH PO ×3 (08:53→17:53)
[2024-09-26] MEDS: Ferrous Sulfate 324 MG TABLET.DR PO (08:53)
[2024-09-26] MEDS: methADONE HCl 20 MG/2 ML ORAL.CONC 150 MG PO (09:17)
--- NOTE | 2024-09-26 14:34 | PC.NURSE ---
Patient continues to rest in bed, reporting feeling uncomfortably but better than this am. Pt is intermittently sleeping, no longer nauseous. Continue plan of care for re-eval tomorrow
--- NOTE | 2024-09-26 16:26 | MHC.CARE ---
Patient is a follow up, in order to give patient time to be able to engage in MSE and dispo planning.
[2024-09-26 17:54] VITALS: BP 125/84; PULSE 120; RESP 20; TEMP 36.8; O2SAT 96
[2024-09-26 21:24] VITALS: BP 134/86; PULSE 94; RESP 18; TEMP 36.7; O2SAT 95
[2024-09-27] MEDS: LORazepam 1 MG TABLET PO ×3 (03:18→23:43)
--- NOTE | 2024-09-27 03:29 | PC.NURSE ---
GIULIANOWA 27, pt medicated as per DEC. notified Dr. Mendes.
[2024-09-27] MEDS: LORazepam 1 MG TABLET 0.5 MG PO ×4 (03:50→22:33)
--- NOTE | 2024-09-27 03:51 | PC.NURSE ---
0430 Ativan dose given.
[2024-09-27 05:17] VITALS: BP 140/89; PULSE 103; RESP 20; TEMP 36.9; O2SAT 97
--- NOTE | 2024-09-27 05:37 | PC.NURSE ---
provider at bedside for assessment. notes she appears to be improving. Plan to keep a close eye on detox symptoms.
[2024-09-27 06:00] VITALS: BP 131/84; PULSE 95; RESP 16; O2SAT 94
[2024-09-27] MEDS: Omeprazole 20 MG CAPSULE.DR PO (06:34)
[2024-09-27] MEDS: Ibuprofen 600 MG TABLET PO (07:12)
--- NOTE | 2024-09-27 07:36 | PC.NURSE ---
Assumed care of patient at 0645, patient appears to be resting in bed, Dr. Mendes at bedside to see patient at this time, pt requesting Ibuprofen for headache, verbal order from Dr. Mendes for Ibuprofen 600mg. Pts CIWA updated, pt provided with PRN Ativan. Continue plan of care for re-assessment this am by CARE team
[2024-09-27] MEDS: LIPASE PROTEASE AMYLASE 1 EACH PO ×3 (08:55→17:03)
[2024-09-27] MEDS: Ferrous Sulfate 324 MG TABLET.DR PO (08:55)
[2024-09-27] MEDS: methADONE HCl 20 MG/2 ML ORAL.CONC 150 MG PO (08:56)
[2024-09-27 14:00] VITALS: BP 129/89; PULSE 102; RESP 16; TEMP 37.3; O2SAT 97
[2024-09-27 20:04] VITALS: BP 126/81; PULSE 74; RESP 20; TEMP 36.8; O2SAT 94
[2024-09-27 23:19] VITALS: BP 138/88; PULSE 106; RESP 20; TEMP 37.7; O2SAT 97
--- NOTE | 2024-09-27 23:28 | PC.NURSE ---
assumed care of pt at 2300. PT ambulating to bathroom, gait steady. appears calm, cooperative and in no acute distress. requesting PRN meds
[2024-09-28] MEDS: LORazepam 1 MG TABLET 0.5 MG PO ×2 (04:55→11:33)
[2024-09-28] MEDS: Omeprazole 20 MG CAPSULE.DR PO (06:43)
[2024-09-28] MEDS: methADONE HCl 20 MG/2 ML ORAL.CONC 150 MG PO (09:21)
[2024-09-28] MEDS: Ferrous Sulfate 324 MG TABLET.DR PO (09:26)
[2024-09-28] MEDS: Docusate Sodium 100 MG CAPSULE PO (09:26)
[2024-09-28 10:00] VITALS: BP 138/88; PULSE 106; RESP 20; TEMP 37.7
--- NOTE | 2024-09-28 14:27 | PHA.MEDREC ---
Pharmacy Consult ? Medication Reconciliation Pharmacy has reviewed the medication reconciliation done by nursing. Claims match med list.
[2024-09-28] MEDS: LORazepam 1 MG TABLET PO (14:37)
[2024-09-28 14:48] VITALS: BP 147/87; PULSE 109; RESP 20; TEMP 36.9; O2SAT 96
--- NOTE | 2024-09-28 15:28 | MHC.CARE ---
[facility] Referral was sent via email for this pt. RAD Team will follow up tomorrow
[2024-09-28 15:29] VITALS: BP 147/87; PULSE 109; RESP 20; TEMP 36.9; O2SAT 96
--- NOTE | 2024-09-28 22:51 | MHC.CARE ---
RAD Team faxed PHP referral for this pt, will follow up tomorrow
--- NOTE | 2024-09-29 09:48 | MHC.CARE ---
Pt placed on alert with [facility], pt will be on alert for 7 days
== END 2024-09-28 15:30 | disposition home or self-care (01) ==
PROVIDERS: Physician Assistant Medical; Emergency Provider Emergency Medicine
DX: F33.1 Major depressive disorder, recurrent, moderate (principal); F10.20 Alcohol dependence, uncomplicated; Y90.8 Blood alcohol level of 240 mg/100 ml or more; E83.42 Hypomagnesemia; R07.81 Pleurodynia; M25.552 Pain in left hip; F17.210 Nicotine dependence, cigarettes, uncomplicated; E83.51 Hypocalcemia; D61.818 Other pancytopenia; R94.31 Abnormal electrocardiogram [ECG] [EKG]; Z79.899 Other long term (current) drug therapy; Z51.81 Encounter for therapeutic drug level monitoring
CPT/HCPCS: 36415; 71101; 73502; 80048; 80053; 80076; 80143; 80179; 80307; 81001; 81025; 83690; 83735; 85025; 85027; 93005; 96365; 96366; 96367; 99285; J0613; J3475; S9485

== ENCOUNTER → 2024-09-26 02:15 | Outpatient (BNV) | payer SELFPAY | PROVIDERS: Emergency Provider Emergency Medicine; Visit Provider Internal Medicine | DX: R94.31 Abnormal electrocardiogram [ECG] [EKG] (principal) | CPT/HCPCS: 93010 ==

== ENCOUNTER 2025-01-23 09:42 | Inpatient (IN) | payer OTHER, SELFPAY ==
--- NOTE | ~2025-01-23 | US_ITS ---
EXAMINATION: US GUIDED PARACENTESIS CLINICAL INFORMATION: Ascites. COMPARISON: Ultrasound paracentesis 01/28/2025. TECHNIQUE: Following explaining ultrasound-guided paracentesis procedure, benefits and risk, a written consent was obtained. Patient was placed supine on ultrasound stretcher and preliminary ultrasound imaging was obtained through the abdomen. An optimal site was selected along the left mid to lower quadrant and marked on the skin. The marked site was cleaned and draped in usual sterile manner. 1% lidocaine was inserted at the marked site. Through a small skin incision a 5 Nigerian Cherry Birdeh catheter was advanced into the peritoneal space. After observing fluid return, stylet was withdrawn and catheter connected to vacuum bottle via connecting cannula. After obtaining all fluid and observing very little to no fluid remaining, catheter was withdrawn and complete hemostasis achieved at puncture site. Simple bandage applied post procedure. Patient tolerated procedure extremely well. FINDINGS: On preliminary ultrasound imaging there is moderate ascites. Approximately 3 L of yellowish fluid was removed from the left lower quadrant. None of this fluid was sent to lab. US/US paracentesis abd w/image IMPRESSION: Successful ultrasound-guided paracentesis performed without immediate complications. Electronically signed by: Osmin Page MD 02/01/2025 04:45 PM EDT
--- NOTE | ~2025-01-23 | XR_ITS ---
EXAMINATION: XR CHEST 1 VIEW HISTORY: cough , chest pain COMPARISON: Comparison is made with the prior examination dated 09/25/2024. FINDINGS: A single AP portable view of the chest performed at 2:39 PM is submitted. There are low lung volumes. The lungs are clear. There is no pleural effusion, pneumothorax, or pulmonary vascular congestion. The heart remains enlarged. The bones are intact. XR/XR chest 1V IMPRESSION: Cardiomegaly. Low lung volumes. No acute cardiopulmonary abnormality. Electronically signed by: Kameron Luis MD 01/29/2025 02:59 PM EDT
--- NOTE | ~2025-01-23 | US_ITS ---
EXAMINATION: US GUIDED PARACENTESIS CLINICAL INFORMATION: Ascites for therapeutic drainage. COMPARISON: Correlation made with CT abdomen and pelvis 01/23/2025. PROCEDURE DETAILS: Following the discussion of the risks, benefits and alternatives to the procedure, written informed consent was obtained from the patient. The patient was placed supine on the exam table. A preprocedure time-out was performed per [facility] protocol. The right lower quadrant was marked, using ultrasound guidance, prepped and draped using sterile fashion. Using an ultrasound to identify the largest pocket of fluid to safely access, the right lower quadrant overlying skin was marked for paracentesis. Skin and subcutaneous tissues were anesthetized with 7 mL of 1% lidocaine sterile solution. Subsequently, a 5-Stateless trochar catheter ([employer]) was advanced into the ascites and upon aspiration of fluid, trocar was removed, and catheter left in place. The catheter was connected to Vacutainer suction. 5500 mL of serous fluid was drained via vacuum bottle. The patient tolerated the procedure well without complications. The catheter was removed, area cleansed, and a sterile dressing applied. Patient tolerated the procedure well with no immediate complication. FINDINGS: Large volume abdominopelvic ascites. US/US paracentesis abd w/image IMPRESSION: RLQ therapeutic paracentesis, yielding 5500 mL of serous ascites. Electronically signed by: Rowdy Meyer MD 01/26/2025 11:28 AM EDT
--- NOTE | ~2025-01-23 | US_ITS ---
EXAMINATION: US GUIDED PARACENTESIS CLINICAL INFORMATION: Ascites for therapeutic drainage. COMPARISON: Correlation made with CT abdomen and pelvis 01/23/2025. PROCEDURE DETAILS: Following the discussion of the risks, benefits and alternatives to the procedure, written informed consent was obtained from the patient. The patient was placed supine on the exam table. A preprocedure time-out was performed per [facility] protocol. The right lower quadrant was marked, using ultrasound guidance, prepped and draped using sterile fashion. Using an ultrasound to identify the largest pocket of fluid to safely access, the right lower quadrant overlying skin was marked for paracentesis. Skin and subcutaneous tissues were anesthetized with 7 mL of 1% lidocaine sterile solution. Subsequently, a 5-Bermudian trochar catheter ([employer]) was advanced into the ascites and upon aspiration of fluid, trocar was removed, and catheter left in place. The catheter was connected to Vacutainer suction. 2900 mL of serous fluid was drained via vacuum bottle. The patient tolerated the procedure well without complications. The catheter was removed, area cleansed, and a sterile dressing applied. Patient tolerated the procedure well with no immediate complication. FINDINGS: Large volume abdominopelvic ascites. US/US paracentesis abd w/image IMPRESSION: RLQ therapeutic paracentesis, yielding 2900 mL of serous ascites. Electronically signed by: Rowdy Meyer MD 01/28/2025 01:42 PM EDT
--- NOTE | ~2025-01-23 | IR_ITS ---
PROCEDURE: IR INSERTION OF PICC CLINICAL INFORMATION: Long-term IV antibiotics. COMPARISON: None available. TECHNIQUE: Following explaining ultrasound fluoroscopy guided placement of right PICC catheter procedure, benefits and risk, a written consent was obtained. All elements of maximal sterile barrier technique followed including use of cap, mask, sterile gown, sterile gloves, a sterile full body drape and hand hygiene. Also followed skin preparation with 2% chlorhexidine for cutaneous antisepsis, and sterile ultrasound preparation with sterile gel and probe cover when applicable. On preliminary ultrasound imaging in areas selected along the right mid arm above the elbow. The area was infiltrated with 1% lidocaine.. Under sterile ultrasound guidance a singlewall needle was advanced in the right base ligamentous punctured. After obtaining venous return a thin guidewire was advanced and placed in SVC and needle withdrawn. Over the guidewire a 5 Gibraltarian dilator and sheath was advanced. Precut 5 Gibraltarian single lumen PICC catheter was advanced over the guidewire and through the peel-away sheath after removing the dilator. The catheter was placed in SVC and a peel-away sheath was withdrawn. A single image was obtained for documentation. Both ports of the PICC line were flushed with heparinized saline. Simple dressing was applied at puncture site. Patient tolerated procedure extremely well. FINDINGS: Preliminary ultrasound imaging widely patent basilar and cephalic veins are noted. A 36 cm long 5 Gibraltarian single-lumen PICC catheter was placed under ultrasound fluoroscopy guidance. The tip of the catheter lies in mid SVC and is ready for use. IR/IR cvc insert peripheral IMPRESSION: Successful ultrasound and fluoroscopy-guided placement of right PICC catheter with its tip in mid SVC. Fluoroscopy time: 0.3 seconds. Dose: 3.6 mGy/cm. Electronically signed by: Osmin Page MD 02/02/2025 02:33 PM EDT
--- NOTE | ~2025-01-23 | CT_ITS ---
CLINICAL HISTORY: diffuse abdominal pain , eval ascites CT abdomen and pelvis without IV contrast. COMPARISON: None FINDINGS: Minimal atelectasis versus scarring along the right lung base. Mild distal esophageal wall thickening. Nodular hepatic contour. Moderate volume abdominal ascites. Cholecystectomy. Spleen is enlarged measuring 18.1 cm in length. Noncontrast appearance of the pancreas and adrenal glands are unremarkable. No hydronephrosis or hydroureter. No renal or ureteral calculus. Mild thickening of the mucosa of the ascending and descending colon. No mesenteric or retroperitoneal lymphadenopathy. Normal abdominal aorta. Normal appearance of the urinary bladder. No adnexal mass. Body wall anasarca. Chronic superior endplate compression fracture of the T7 vertebral body approximately 30 percent height loss. No acute fracture identified. IMPRESSION: 1. Cirrhotic hepatic morphology with splenomegaly and moderate volume abdominal ascites. 2. Mild thickening of the mucosa of the ascending and descending colon likely secondary to hypoalbuminemia. Colitis however could look similar. 3. Mild circumferential thickening of the mucosa of the distal esophagus can be associated with gastroesophageal reflux disease and esophagitis. This document has been electronically signed by: Jose Stark MD on 01/23/2025 14:04:55
--- NOTE | ~2025-01-23 | MR_ITS ---
CLINICAL HISTORY: l3 l4 paraspinal abcess MR lumbar spine with and without gadolinium Comparison: CT/OR/SR - CT ABDOMEN PELVIS WO IV CON - 01/23/25 13:26 EDT Findings: There is a transitional element at L5 as seen by CT. Alignment is normal. No acute fracture or pathologic bone lesion. Cauda equina and conus medullaris within normal limits. Paraspinous musculature intact. Within the left posterior paraspinous soft tissues, there is a peripherally enhancing high T2 intensity focus measuring 35 mm anteroposterior, with moderate surrounding ill-defined STIR signal elevation and enhancement, and communicating with the left L3-L4 facet joint. L1-L2: No significant canal nor foraminal stenosis. L2-L3:Mild epidural lipomatosis. Mild facet and ligamentum flavum hypertrophy. Mild canal stenosis. Mild bilateral foraminal stenosis. L3-L4:Left facet joint effusion which extends into the left posterior epidural space and left neural foramen. Mild epidural lipomatosis. Mild ligamentum flavum hypertrophy and facet hypertrophy. Moderate canal stenosis. Moderate left and mild right foraminal stenosis. L4-L5: Bilateral facet hypertrophy. Mild canal stenosis. Mild bilateral foraminal stenosis. L5-S1: Mild disc height loss and desiccation. Mild diffuse disc bulge. Mild bilateral facet hypertrophy. Mild canal stenosis. Mild bilateral foraminal stenosis. IMPRESSION: 1. Atypical numbering system with transitional element at L5. 2. Septic arthritis of the left L3-L4 facet joint with associated joint effusion, which extends into the posterolateral epidural space, left neural foramen, as well as the paraspinous soft tissues as described above, with surrounding cellulitis. 3. There is associated moderate L3-L4 canal stenosis and moderate left L3-L4 foraminal stenosis. This document has been electronically signed by: Leandro Li MD on 01/26/2025 18:09:29
[2025-01-23 09:46] VITALS: BP 117/62; BP 150/78; PULSE 102; RESP 20; TEMP 36.7; O2SAT 100; BMI 28.8
--- NOTE | 2025-01-23 10:43 | ECG_ITS ---
Test Reason : UPPER ABD PAIN Blood Pressure : */* mmHG Vent. Rate : 88 BPM Atrial Rate : 88 BPM P-R Int : 170 ms QRS Dur : 86 ms QT Int : 382 ms P-R-T Axes : 49 0 1 degrees QTcB Int : 462 ms Normal sinus rhythm Cannot rule out Anterior infarct (cited on or before 26-Sep-2024) Abnormal ECG When compared with ECG of 26-Sep-2024 02:25, Questionable change in initial forces of Septal leads T wave inversion now evident in Inferior leads Nonspecific T wave abnormality no longer evident in Lateral leads Referred By: Vanda Solares Electronically Signed By: NOREEN ASTORGA MD
--- NOTE | 2025-01-23 10:44 | ED.ABDPAIN ---
HPI - Abdominal Pain General Chief Complaint: Abdominal Pain Stated Complaint: ABD PRESSURE/PAIN,HX CIRRHOSIS PER EMS Time Seen by Provider: 01/23/25 10:14 Source: patient and EMS Mode of arrival: EMS Limitations: no limitations History of Present Illness ED Provider: Vanda Solares APRN HPI narrative: 44 yo female with history of liver cirrhosis, OUD on suboxone, chronic pancreatitis here with complaints of increasing abdominal pain and distention x 4-5 days. Patient reports she was discharged from [facility] after being admitted to their ICU for ??. Her last paracentesis was during this admission. She does not have an appt with [facility]. She denies associated vomiting, fever, shortness of breath. She has been taking her lactulose and reports chronic diarrhea. Of note, she was transitioned from methadone to suboxone during her admission. She was discharged on suboxone 8mg TID on 01/20 and was given a 7 day supply. For the last few days she has been taking it twice daily as she is concerned she will not be able to get to the clinic to get a refill due to transportation issues. Related Data Home Medications ?Medication ?Instructions ?Recorded ?Confirmed albuterol sulfate 90 mcg/actuation 2 puff inhalation QID PRN wheezing 09/25/24 09/25/24 aerosol inhaler docusate sodium 100 mg capsule 100 mg PO DAILY 09/25/24 09/25/24 ferrous sulfate 325 mg (65 mg 325 mg PO DAILY 09/25/24 09/25/24 iron) tablet,delayed release lactulose 10 gram/15 mL oral 15 ml PO BID PRN constipation 09/25/24 09/25/24 solution mcbhgp-hlzactid-bzapaew 1 cap PO TID 09/25/24 09/25/24 36,000-114,000-180,000 unit capsule,delay rel (Creon) methadone 10 mg/5 mL oral solution 150 mg PO DAILY 09/25/24 09/25/24 ondansetron HCl 4 mg tablet 4 mg PO Q8H PRN nausea/vomiting 09/25/24 09/25/24 pantoprazole 40 mg tablet,delayed 40 mg PO DAILY 09/25/24 09/25/24 release Previous Rx's ?Medication ?Instructions ?Recorded lorazepam 1 mg tablet 1 mg PO BID PRN anxiety #4 tabs 09/28/24 Allergies Allergy/AdvReac Type Severity Reaction Status Date / Time lamotrigine [From LAMICTAL] Allergy Unknown UNKNOWN Verified 01/23/25 09:50 From COMPAZINE Allergy Unknown UNKNOWN Uncoded 07/14/20 16:49 Review of Systems Review of Systems Yes all other systems are reviewed and are negative Constitutional: Reports no additional constitutional complaints, Denies body ache(s), Denies chills, Denies fever(s), Denies headache(s) and Denies weakness Eyes: Reports no additional eye complaints and Denies change in vision Reports system reviewed and no additional complaints, except as documented, Denies dizziness, Denies headache(s), Denies nasal congestion, Denies nasal discharge and Denies neck pain Cardiovascular: Reports no additional cardiovascular complaints, Denies chest pain, Denies leg edema and Denies dyspnea Respiratory: Reports no additional respiratory complaints, Denies cough and Denies dyspnea Gastrointestinal: Reports no additional gastrointestinal complaints, Reports abdominal pain, Denies diarrhea, Denies nausea and Denies vomiting Genitourinary: Reports no additional female genitourinary complaints and Denies urinary incontinence Musculoskeletal: Reports no additional musculoskeletal complaints, Denies back pain, Denies arthralgias, Denies joint swelling, Denies neck pain, Denies numbness and Denies tingling Skin/Breast: Reports system reviewed and no additional complaints, except as docu and Denies rash Reports system reviewed and no additional complaints, except as documented, Denies Abnormal speech present, Denies dizziness, Denies headache(s), Denies numbness, Denies tingling and Denies weakness PMFSH Past Medical History Attestation statement: The following information was validated with the patient. Source: old records reviewed and nursing notes reviewed Medical History Pancreatitis, chronic Surgical History Hx of cholecystectomy Social History Social History Alcohol intake: former Patient Tobacco Use Status: Current someday Tobacco user Smoked in Last 30 Days: No Use of substances other than those prescribed or required for medical reasons: No Advance Directives: No Advance Directives Information Provided: Yes Patient : No Physical Exam ED Vital Signs: Vital Signs - 24 hr 01/23/25 09:46 01/23/25 15:09 Temperature 98.1 F 98.2 F Pulse Rate 102 H 87 Respiratory Rate 20 18 Blood Pressure 117/62 103/58 L Pulse Oximetry 100 99 Oxygen Delivery Method Room Air Room Air BMI result Body Mass Index 28.8 Const General: cooperative, healthy appearing, comfortable and no acute distress Orientation/consciousness: patient oriented x3 Limitations: no limitations HENMT Head: Yes normal to inspection Ears: hearing grossly normal bilaterally General nose exam: Normal external nose present Face and sinus: Yes normal facial exam Mouth: Normal oral and palatal mucosa present Throat: Yes posterior oropharynx normal Eyes General: appearance normal, both eyes and all related structures Pupils: Equal, round and reactive pupils present Neck Neck: Yes normal visual inspection Chest Chest palpation & inspection: normal inspection of the chest Resp Effort & Inspection: normal respiratory effort Auscultation: clear to auscultation bilaterally Cardio Rate: regular rate Rhythm: regular rhythm Peripheral pulses: Peripheral pulses 2+ throughout GI Other: Abdomen is soft Inspection: Yes normal to inspection Palpation (GI): Soft to palpation and Tenderness to palpation present (GI) (diffusely) Auscultation: normal bowel sounds Back/Spine/Pelvis Thoracic/Lumbar Spine: thoracic and lumbar spine normal to inspection Skin General skin exam: no rashes or lesions noted Neuro General: patient oriented x3, no focal motor deficits and normal sensation to monofilament Cranial nerves: Yes Equal, round and reactive pupils present Cognition (Neuro): normal cognition Speech: No Abnormal speech present Gait exam (Neuro): Normal gait present Motor exam (neuro): 5/5 motor strength present throughout Extrem General: Yes normal to inspection Procedures Paracentesis Time Out Performed: Yes Local Anesthetic: lidocaine 1% Amount of anesthesia used (mL): 2 Fluid: clear Post Procedure Exam: awake, alert and normal BP Patient Tolerated Procedure: well and no complications Complications: none and other (900 cc of straw-colored ascitic fluid was drained from left lower abdominal ultrasound-guided) Course Course Course Narrative: 1224-I was able to obtain records from [facility]. Patient was admitted 12/26/2024 and left against medical advice on 01/20/2025. Her admission diagnosis was paraspinal abscess secondary to MRSA with recommendations from Infectious Disease to be on IV vanco until February 28. Her additional diagnosis is were alcoholic liver cirrhosis requiring frequent paracentesis, hepatic encephalopathy, alcohol withdrawal, IVELISSE secondary to ATN. I reviewed labs today which show anemia at baseline. Patient does have an elevated creatinine BUN from baseline. Her discharge creatinine was 1.2. She has mild acidosis which is likely secondary to both renal and liver disease. Her LFTs are elevated. Her lipase is normal. I will attempt to get the MRI records from [place]. At this time infection is suspected. Blood cultures and lactic acid ordered. Antibiotics ordered. Patient is willing to be admitted today. Reevaluation(s) Reevaluation #1: 1019-Ct shows moderate ascites. Dr Juarez will perform diagnostic paracentesis to rule out SBP. I spoke to the medicine team who will admit the patient Medical Decision Making Medical Decision Making [facility] Narrative: 44 yo female with history of liver cirrhosis, OUD on suboxone, chronic pancreatitis here with complaints of increasing abdominal pain and distention x 4-5 days. Patient reports she was discharged from [facility] after being admitted to their ICU for ??. Her last paracentesis was during this admission. She does not have an appt with [facility] until March. She denies associated vomiting, fever, shortness of breath. She has been taking her lactulose and reports chronic diarrhea. Of note, she was transitioned from methadone to suboxone during her admission. She was discharged on suboxone 8mg TID on 01/20 and was given a 7 day supply. For the last few days she has been taking it twice daily as she is concerned she will not be able to get to the clinic to get a refill due to transportation issues. Abdomen is non distended and soft but diffusely tender. +BS. VSS Will need labs, ?imaging and will need to obtain records from [facility] Differential Diagnosis Differential Diagnoses: The differential diagnosis associated with the presentation includes pancreatitis, cholecystitis Admission/Observation Consideration of admission/observation: Escalation of care including admission/observation considered IVELISSE, Recent dx of MRSA bacteremia with paraspinal abscess with recommendations from ID for antibiotics till 02/28 with no access in place. This will require admission and further management Consult Healthcare Provider Management of the patient was discussed with: Hospitalist Dr Arrington [id number] Lab Data [facility] Lab Attestation statement: I reviewed the patient's lab results. 01/23/25 11:33 01/23/25 11:33 Labs: Lab Results 01/23/25 01/23/25 01/23/25 Range/Units 11:15 11:33 12:30 WBC 5.0 (4.8-10.8) X10*3/uL RBC 2.25 L D (4.20-5.50) X10*6/uL Hgb 7.6 L D (12.0-16.0) g/dl Hct 22.9 L D (37.0-47.0) % MCV 101.8 H (80.0-98.0) fL MCH 33.8 H (27.0-33.0) pg MCHC 33.2 (31.0-35.0) g/dl RDW 20.0 H (11.0-16.0) % Plt Count 75 L D (160-400) X10*3/uL MPV 10.4 (9.4-12.3) fL Immature Gran % (Auto) 0.2 (0.0-0.4) % Neut % (Auto) 71.1 (45-73) % Lymph % (Auto) 18.5 L (20-40) % [place] % (Auto) 7.2 (2-11) % Eos % (Auto) 2.8 (0-4) % Baso % (Auto) 0.2 (0-2) % Lymph # (Auto) 0.9 L (1.2-4.9) X10*3/uL [place] # (Auto) 0.4 (0.1-1.2) X10*3/uL Eos # (Auto) 0.1 (0.0-0.4) X10*3/uL Baso # (Auto) 0.0 (0.0-0.2) X10*3/uL Abs Immat Gran (auto) 0.01 (0.00-0.03) X10*3/uL Absolute Neuts (auto) 3.6 (2.0-8.3) x10*3/uL Absolute Nucleated RBC 0.000 (0.0-0.012) X10*3/uL Nucleated RBC % (auto) 0.0 (0.0-0.2) /100WBC PT 22.1 H (10.9-12.4) SEC INR 1.9 H (0.9-1.1) Sodium 131 L (135-145) mmol/L Potassium 4.3 D (3.3-5.1) mmol/L Chloride 109 H (96-108) mmol/L Carbon Dioxide 15 L (22-29) mmol/L Anion Gap 11 L (12-20) BUN 37 H (9-16) mg/dL Creatinine 2.46 H (0.5-1.4) mg/dL Estim Creat Clear Calc 28.8 Estimated GFR 21 Random Glucose 114 (60-115) mg/dL Lactic Acid 1.4 (0.5-2.0) mmol/L Calcium 8.3 L D (8.4-10.2) mg/dL Magnesium 1.6 (1.6-2.6) mg/dL Total Bilirubin 4.3 H (0.0-1.0) mg/dL Direct Bilirubin 3.1 H (0.0-0.5) mg/dL AST 119 H (5-31) U/L ALT 67 H (0-31) U/L Alkaline Phosphatase 77 (39-117) U/L Troponin I High Sens 20.1 H (<3.5-17.0) ng/L Total Protein 7.3 (6.5-8.0) g/dL Albumin 2.6 L (3.5-5.0) g/dL Lipase 17 (8-78) U/L Ethyl Alcohol < 10 mg/dL Independent Interpretation I performed an independent interpretation of an: EKG and CT Scan Interpretation: I independently viewed the EKG which shows normal sinus rhythm with a rate 88, normal CA, normal QRS, VT Radiology Impression Discussion of test interpretation with radiology: I have reviewed the radiologist's reading. Radiologist Impression: [address] [address] [address] Scan Report Signed Patient: Leslie Fitzgerald MR#: [id number] : 1980 Acct:[id number] Age/Sex: 44 / F ADM Date: 01/23/25 Loc: .ED Attending Dr: Ordering Physician: Vanda Solares NP Date of Service: 01/23/25 Procedure(s): CT abdomen pelvis wo IV con Accession Number(s): [id number] cc: Vanda Solares NP; Physician,Unknown ~ Report Number: [id number]: Total DLP = 608.00 mGy-cm CLINICAL HISTORY: diffuse abdominal pain , eval ascites CT abdomen and pelvis without IV contrast. COMPARISON: None FINDINGS: Minimal atelectasis versus scarring along the right lung base. Mild distal esophageal wall thickening. Nodular hepatic contour. Moderate volume abdominal ascites. Cholecystectomy. Spleen is enlarged measuring 18.1 cm in length. Noncontrast appearance of the pancreas and adrenal glands are unremarkable. No hydronephrosis or hydroureter. No renal or ureteral calculus. Mild thickening of the mucosa of the ascending and descending colon. No mesenteric or retroperitoneal lymphadenopathy. Normal abdominal aorta. Normal appearance of the urinary bladder. No adnexal mass. Body wall anasarca. Chronic superior endplate compression fracture of the T7 vertebral body approximately 30 percent height loss. No acute fracture identified. IMPRESSION: 1. Cirrhotic hepatic morphology with splenomegaly and moderate volume abdominal ascites. 2. Mild thickening of the mucosa of the ascending and descending colon likely secondary to hypoalbuminemia. Colitis however could look similar. 3. Mild circumferential thickening of the mucosa of the distal esophagus can be associated with gastroesophageal reflux disease and esophagitis. This document has been electronically signed by: Jose Stark MD on 01/23/2025 14:04:55 Independent Historian Clinical information obtained from an independent historian. History obtained from or confirmed by: EMS External Record Review External record reviewed: Inpatient record Medications Administered Discontinued Medications Generic Name Dose Route Start Last Admin Trade Name Freq PRN Reason Stop Dose Admin Ceftriaxone Sodium 2 gm 01/23/25 12:21 01/23/25 12:54 Ceftriaxone Sodium 2 Gm Vial IVPUSH 01/23/25 12:22 2 gm ONCE ONE Administration Sodium Chloride 1,000 mls @ 999 mls/hr 01/23/25 12:15 01/23/25 15:04 Ns IV 01/23/25 13:15 Infused .Q1H1M STA Infusion Vancomycin HCl 2,000 mg in 500 mls @ 250 mls/hr 01/23/25 12:21 01/23/25 12:54 Vancomycin/Ns IV 01/23/25 14:20 250 mls/hr ONCE ONE Administration Albumin Human 50 mls @ 100 mls/hr 01/23/25 14:51 01/23/25 15:03 Kedbumin 25 % IV 01/23/25 15:20 100 mls/hr ONCE ONE Administration Lorazepam 1 mg 01/23/25 10:43 01/23/25 11:20 Lorazepam 2 Mg/Ml Vial IVPUSH 01/23/25 10:44 1 mg STAT STA Administration Morphine Sulfate 4 mg 01/23/25 10:43 01/23/25 11:19 Morphine Sulfate 4 Mg/Ml Cartridge IVPUSH 01/23/25 10:44 4 mg ONCE ONE Administration Protocol Ondansetron HCl 4 mg 01/23/25 10:43 01/23/25 11:20 Ondansetron Hcl 4 Mg/2 Ml Vial IVPUSH 01/23/25 10:44 4 mg ONCE ONE Administration Critical Care Time Critical Care Time Critical Care Time: Yes Total Critical Care Time: 60 Attestation: Review of outpatient records, discussion with hospitalist for admission, procedure at bedside, re-evaluation of patient Discharge Plan Discharge Clinical Impression: Abdominal pain, Abdominal ascites, IVELISSE (acute kidney injury) Patient Disposition: Admitted As Inpatient Print Language: Croatian
[2025-01-23] MEDS: Morphine Sulfate 4 MG/ML CARTRIDGE IVPUSH ×2 (11:19→17:50)
[2025-01-23] MEDS: ondansetron HCL 4 MG/2 ML VIAL IVPUSH (11:20)
[2025-01-23] MEDS: LORazepam 2 MG/ML VIAL 1 MG IVPUSH (11:20)
[2025-01-23 11:28] LABS: INTERNATIONAL NORM RATIO 1.9 (0.9-1.1); Prothrombin Time 22.1 SEC (10.9-12.4)
[2025-01-23 11:37] LABS: Basophils Percent Auto 0.2 % (0-2); Eosinophils Absolute Auto 0.1 X10*3/uL (0.0-0.4); Eosinophils Percent Auto 2.8 % (0-4); Hematocrit 22.9 % (37.0-47.0); Hemoglobin 7.6 g/dl (12.0-16.0); Imm Gran Abs Auto 0.01 X10*3/uL (0.00-0.03); Imm Gran Pct Auto 0.2 % (0.0-0.4); Lymphocytes Absolute Auto 0.9 X10*3/uL (1.2-4.9); Lymphocytes Percent Auto 18.5 % (20-40); Mean Corpuscular HGB Conc 33.2 g/dl (31.0-35.0); Mean Corpuscular Hemoglobin 33.8 pg (27.0-33.0); Mean Corpuscular Volume 101.8 fL (80.0-98.0); Mean Platelet Volume 10.4 fL (9.4-12.3); Monocytes Absolute Auto 0.4 X10*3/uL (0.1-1.2); Monocytes Percent Auto 7.2 % (2-11); Neutrophils Absolute Auto 3.6 x10*3/uL (2.0-8.3); Neutrophils Percent Auto 71.1 % (45-73); Red Blood Count 2.25 X10*6/uL (4.20-5.50)
[2025-01-23 11:38] LABS: Platelet Count 75 X10*3/uL (160-400)
[2025-01-23 11:46] LABS: Troponin-I High Sensitivity 20.1 ng/L (<3.5-17.0)
[2025-01-23 12:00] LABS: Alanine Aminotransferase 67 U/L (0-31); Albumin Level 2.6 g/dL (3.5-5.0); Alkaline Phosphatase 77 U/L (39-117); Anion Gap 11 (12-20); Aspartate Amino Transferase 119 U/L (5-31); Bilirubin Direct 3.1 mg/dL (0.0-0.5); Bilirubin Total 4.3 mg/dL (0.0-1.0); Blood Urea Nitrogen 37 mg/dL (9-16); Calcium 8.3 mg/dL (8.4-10.2); Carbon Dioxide 15 mmol/L (22-29); Chloride 109 mmol/L (96-108); Creatinine Clr Calc Pharmacy 28.8; Estimated Glomerular Filt Rate 21; Glucose Random 114 mg/dL (60-115); Lipase 17 U/L (8-78); Magnesium 1.6 mg/dL (1.6-2.6); Potassium 4.3 mmol/L (3.3-5.1); Sodium 131 mmol/L (135-145); Total Protein 7.3 g/dL (6.5-8.0)
[2025-01-23] MEDS: 0.9 % Sodium Chloride 1,000 ML 999 ML IV (12:36)
[2025-01-23] MEDS: vancomycin/NS 2,000 MG/500 ML PLAST..BAG 250 MG IV (12:54)
[2025-01-23] MEDS: cefTRIAXone sodium 2 GM VIAL IVPUSH (12:54)
[2025-01-23 13:01] LABS: Lactic Acid 1.4 mmol/L (0.5-2.0)
[2025-01-23 13:02] LABS: Ethanol < 10 mg/dL
[2025-01-23] MEDS: Albumin Human 25 % 50 ML 100 ML IV ×2 (15:03→16:28)
[2025-01-23 15:09] VITALS: BP 103/58; PULSE 87; RESP 18; TEMP 36.8; O2SAT 99
[2025-01-23 15:12] LABS: MN% 85.7 %; PMN% 14.3 %; WBC Peritoneal Fluid 0.301 X10*3/uL
[2025-01-23 15:38] LABS: BF Shift QC OK YES; Lymphocyte Peritoneal Fl 23 %; Monocytes Peritoneal Fl 46 %; Neutrophils Peritoneal Fluid 13 %; Other Peritioneal Fl 18 %; RBC Peritoneal Fluid < 0.002 X10*6/uL
--- NOTE | 2025-01-23 16:32 | PM.IMHP ---
History of Present Illness Date of Service: 01/23/25 Attending physician on admission: [facility] Chief Complaint: abd pain 44-year-old female with history of hepatic cirrhosis with history of alcohol use disorder and hepatitis-C, or UD on Suboxone, chronic pancreatitis presented to the ED earlier today for evaluation of diffuse abdominal pain. She denies any fevers, chills, nausea, vomiting, shortness of breath. She has been compliant with lactulose. She states she was previously on methadone was recently switched to Suboxone and has been experiencing 4-5 episodes of diarrhea daily since she was switched. She states that she has not had any 2 months. She states last illicit/IV drug use was 20 years ago. She is following with Gastroenterology and is hoping for a level transplant. She has an appointment on February 03 (Dr. Dennison). In the ED, blood pressure soft but no hypotension. No leukocytosis. Chronic stable normocytic anemia with H/H 7.6/22.9%, consistent with baseline labs from [facility]. Platelets 75,000. Creatinine 2.46, baseline 1.2. BUN 37. Sodium 131. CO2 15. VBG pending.. Lactic acid 1.4. Total bilirubin 4.3, direct bilirubin 3.1, AST 119, ALT 67. Initial troponin 20.1, repeat pending. Urinalysis with 3+ blood, 2+ leukocytes. Paracentesis performed at bedside of about 2L Peritoneal fluid analysis pending. She was admitted to [facility] 12/27-01/20 due to encephalopathy and required ICU treatment due to severe alcohol withdrawal treated with phenobarbital and subsequently Precedex drip. Underwent paracentesis of 1.6 L 01/07 and then subsequent paracentesis with 3.6 L 01/19 without any complication. Fluid analysis unavailable. Has undergone multiple paracentesis in the past. She was also septic with septic shock due to paraspinal abscess. Paraspinal abscess mid lumbar region greatest at L3-L4 drained on 01/14. PICC line was placed and patient was started on vancomycin as blood cultures were positive for MRSA bacteremia. TTE at that time ruled out endocarditis but patient left AMA as she did not want to go to SNF though vancomycin was recommended to be continued until February 28 per ID. The patient tells me that she was being considered for VNA, however on review of [facility] records, it appears she was referred to SNF which she did not agree with an ultimately left against medical advice. In the ED, received albumin x2, lorazepam, morphine, IV ceftriaxone, IV vanco, ondansetron, and NS. Review of Systems Review of Systems: Yes all other systems are reviewed and are negative COUNT INCLUDES [facility] Medical History Hepatitis C Opioid use disorder Alcohol use disorder Hepatic cirrhosis Pancreatitis, chronic Surgical History Hx of cholecystectomy Social History Household Members: Children [facility] Alcohol intake: former Patient Tobacco Use Status: Former Tobacco user Smoked in Last 30 Days: No Use of substances other than those prescribed or required for medical reasons: No Last Used Substance Other:: patient denies drug use- postitive utox Advance Directives: No Advance Directives Information Provided: Yes Recently lost weight without trying: No Nutrition Risks: No Nutritional Risk Patient : No Meds Allergies Allergy/AdvReac Type Severity Reaction Status Date / Time lamotrigine [From LAMICTAL] Allergy Unknown UNKNOWN Verified 01/23/25 09:50 From COMPAZINE Allergy Unknown UNKNOWN Uncoded 07/14/20 16:49 Active Medications: Current Medications Acetaminophen (Acetaminophen 325 Mg Tablet) 650 mg PO Q6H PRN PRN Reason: Pain, Mild 1-3,fever,headache Melatonin (Melatonin 3 Mg Tablet) 6 mg PO BEDTIME PRN PRN Reason: Insomnia Sodium Chloride (0.9 % Sodium Chloride Flush 3 Ml Syringe) 3 ml [facility] Medications ?Medication ?Instructions ?Recorded ?Confirmed ?Last Taken ?Type albuterol sulfate 90 mcg/actuation 2 puff inhalation QID PRN wheezing 09/25/24 01/23/25 Unknown History aerosol inhaler lactulose 10 gram/15 mL oral 15 ml PO BID 09/25/24 01/23/25 Unknown History solution buprenorphine 8 mg-naloxone 2 mg 1 film sublingual BID 01/23/25 01/23/25 01/23/25 History sublingual film calcium carbonate 500 mg PO DAILY PRN Heartburn 01/23/25 01/23/25 Unknown History furosemide 20 mg tablet 20 mg PO DAILY 01/23/25 01/23/25 Unknown History gabapentin 100 mg capsule 100 mg PO BID 01/23/25 01/23/25 Unknown History ibuprofen 200 mg tablet 400 mg PO Q6H PRN Pain 01/23/25 01/23/25 Unknown History ncmhei-wfexqxwd-[id number] 1 cap PO TIDWM 01/23/25 01/23/25 Unknown History 36,000-114,000-180,000 unit capsule,delay rel (Creon) spironolactone 50 mg tablet 50 mg PO DAILY 01/23/25 01/23/25 Unknown History Physical Exam Vital Signs and Narrative: Vital Signs: Last Vital Signs Temp 98.2 F 01/23/25 15:09 Pulse 87 01/23/25 15:09 Resp 18 01/23/25 15:09 BP 103/58 L 01/23/25 15:09 Pulse Ox 99 01/23/25 15:09 O2 Del Method Room Air 01/23/25 15:09 BMI result Body Mass Index 28.8 Constitutional - Awake and Alert, No apparent distress Eyes - PERRLA, EOMI, sclerae icterus Cardiovascular - S1S2, RRR, IV/ holosystolic murmur, No edema Respiratory - Normal lung expansion, Normal respiratory effort, No respiratory distress, CTA bilaterally Gastrointestinal - mild diffuse tenderness to palpation, ND; +BS; No rebound or guarding Extremities - no calf tenderness bilaterally, no swelling Skin - Warm/Dry. Jaundice Neurological - Alert & oriented x3 Psychological - Appropriate affect Results Labs 01/24/25 06:12 01/24/25 06:12 Labs: Laboratory Results - last 24 hr 01/23/25 01/23/25 01/23/25 11:15 11:33 12:30 MCV 101.8 H MCH 33.8 H MCHC 33.2 RDW 20.0 H Plt Count 75 L D MPV 10.4 Immature Gran % (Auto) 0.2 Neut % (Auto) 71.1 Lymph % (Auto) 18.5 L [place] % (Auto) 7.2 Eos % (Auto) 2.8 Baso % (Auto) 0.2 Lymph # (Auto) 0.9 L [place] # (Auto) 0.4 Eos # (Auto) 0.1 Baso # (Auto) 0.0 Abs Immat Gran (auto) 0.01 Absolute Neuts (auto) 3.6 Absolute Nucleated RBC 0.000 Nucleated RBC % (auto) 0.0 PT 22.1 H INR 1.9 H Anion Gap 11 L Estim Creat Clear Calc 28.8 Estimated GFR 21 Random Glucose 114 Lactic Acid 1.4 Calcium 8.3 L D Magnesium 1.6 Total Bilirubin 4.3 H Direct Bilirubin 3.1 H AST 119 H ALT 67 H Alkaline Phosphatase 77 Total Protein 7.3 Albumin 2.6 L Lipase 17 Peritoneal WBC Peritoneal RBC Periton Neutrophils Periton Lymphocytes Peritoneal Monocytes Peritoneal Other Cells Ethyl Alcohol < 10 01/23/25 14:57 MCV MCH MCHC RDW Plt Count MPV Immature Gran % (Auto) Neut % (Auto) Lymph % (Auto) [place] % (Auto) Eos % (Auto) Baso % (Auto) Lymph # (Auto) [place] # (Auto) Eos # (Auto) Baso # (Auto) Abs Immat Gran (auto) Absolute Neuts (auto) Absolute Nucleated RBC Nucleated RBC % (auto) PT INR Anion Gap Estim Creat Clear Calc Estimated GFR Random Glucose Lactic Acid Calcium Magnesium Total Bilirubin Direct Bilirubin AST ALT Alkaline Phosphatase Total Protein Albumin Lipase Peritoneal WBC 0.301 Peritoneal RBC < 0.002 Periton Neutrophils 13 Periton Lymphocytes 23 Peritoneal Monocytes 46 Peritoneal Other Cells 18 Ethyl Alcohol Assessment and Plan (1) IVELISSE (acute kidney injury): Status: Acute (2) Abdominal ascites: Status: Acute (3) Abdominal pain: Status: Acute Plan 44-year-old female with history of hepatic cirrhosis with history of alcohol use disorder and hepatitis-C, or UD on Suboxone, chronic pancreatitis admitted for acute decompensation of hepatic cirrhosis and MRSA bacteremia Acute decompensation of hepatic cirrhosis with ascites, coagulopathy, and hyperbilirubinemia History of hepatitis-C and alcohol use disorder Total bili 4.3, direct bili 3.1, AST 119, ALT 67 s/p paracentesis in ed of about 2L Peritoneal fluid analysis pending Albumin x2 Continue lactulose Consider Lasix and spironolactone should blood pressures improve Gastroenterology consult Follow liver panel, INR Acute kidney injury-prerenal Urine studies pending Albumin x2, 1 L IVF in the ED. Hold on further IV fluids Avoid nephrotoxins Low-sodium diet Follow renal function and electrolytes Acute non-anion gap metabolic acidosis r/t IVELISSE PH 7.30, pCO2 26, bicarb 13 likely compensating, improving with IVF Follow bicarb MRSA bacteremia dx 3/2 from paraspinal abscess drained 01/14 TTE at the time negative for endocarditis Had been on IV vancomycin but left against medical advice as she was recommended for SNF given history of IV drug abuse Resume vancomycin Blood cultures pending Echocardiogram given new murmur ID consult Alcohol use disorder Reports last use was 2 months ago Monitor on CIWA, initiate phenobarbital showed evidence of withdrawal arise Chronic macrocytic anemia H/H baseline when compared with recent [facility] labs Vitamin B12 and folic acid level Polysubstance abuse/OUD Continue Suboxone Addiction medicine consult Chronic thrombocytopenia Due to above DVT prophylaxis- SCPs Full code Patient requires inpatient stay at least 2 midnights for management of acute decompensated cirrhosis with acute kidney injury and untreated MRSA bacteremia requiring IV fluid resuscitation, close monitoring of hepatic and renal function, as well as close monitoring of cultures and expert consultation Quality Stroke Does the patient have a stroke diagnosis?: No VTE Prior VTE?: No VTE Risk Level:: Medical - moderate - high VTE Device Contraindication: N/A - Device Ordered VTE Drug Contraindication: Treatment Not Indicated
[2025-01-23 16:38] LABS: Appearance Urine Clear; Color Urine Yellow; Glucose Urine UA Negative (Negative); Leukocyte Esterase Urine Moderate (2+) (Negative); Nitrite Urine Negative (Negative); PH 5.5 (5.0-9.0); UMIC TRIGGER UACC YES; Urine Blood Large (3+) (Negative); Urine Ketones Negative (Negative); Urine Protein Trace mg/dL (Neg-Trace)
[2025-01-23 16:50] LABS: Amphetamine Screen Urine Not Detected (Not Detect); Barbiturates, Urine POSITIVE (Not Detect); Benzodiazepines Screen Urine POSITIVE (Not Detect); Buprenorphine Scr Positive (Not Detect); Cannabinoid Screen Urine Not Detected (Not Detect); Cocaine Screen Urine Not Detected (Not Detect); Fentanyl, urine POSITIVE (Not Detect); Methadone Screen, Urine Positive (Not Detect); Opiate Screen Urine POSITIVE (Not Detect); Oxycodone Screen Urine Not Detected (Not Detect); Phencyclidine Screen Urine Not Detected (Not Detect)
[2025-01-23 16:54] LABS: Bacteria Urine None Seen (None Seen); UACC Culture Trigger YES; WBC Urine 21-50 /HPF (0-5)
--- NOTE | 2025-01-23 17:00 | PHA.PROG ---
Admission Date/Time: January 23, 2025 16:20 Indication: INTRA ABDOMINAL INFECTION Weight in k.204 kg Adjusted body weight in Kg: Jadwin body weight in Kg: Obesity Dosing Indication % IBW: Serum Creatinine - Last 168 Hours 01/23/25 11:33 Creatinine 2.46 H Estimated CrCl and GFR - Last 168 Hours 01/23/25 11:33 Estim Creat Clear Calc 28.8 Estimated GFR 21 Vancomycin Loading Dose: 2000 MG Current Vancomycin Dosing Regimen: 750 MG Q24H Vancomycin Monitoring using AUC goal of 400 - 600 range with trough as surrogate marker: IEV=220 TROUGH=15.1 Date and Time for next Vancomycin Level to be drawn: 01/25/25 @1100 Pharmacist Comments on Vancomycin Plan: Vancomycin dosing will take advantage of [employer] as a clinical decision support tool that uses Bayesian modeling to calculate individual patient's pharmacokinetic parameters and forecast the patient's drug concentration time course with the target goal AUC 24 range of 400 - 600 mg/L/hr.
[2025-01-23 17:37] LABS: Venous Blood Gas Refer to POC result
[2025-01-23 17:37] LABS: VBG Base Excess -11.4 mmol/L; VBG HCO3 13 mmol/L (22-26); VBG pCO2 26 mmHg; VBG pO2 48 mmHg
[2025-01-23 17:45] VITALS: BP 103/61; PULSE 87; RESP 18; TEMP 36.8; O2SAT 99
[2025-01-23 17:47] LABS: Troponin-I High Sensitivity 8.8 ng/L (<3.5-17.0)
--- NOTE | 2025-01-23 17:57 | PHA.MEDREC ---
Addendum entered by Jacek Kulkarni, [facility] 01/23/25 18:33: MED REC CHECKED BY Original Note: Pharmacy Consult ? Medication Reconciliation Pharmacy has completed the medication reconciliation. Spoke with patient to confirm. She reports she has been taking suboxone bid instead of tid. She says she ran out of creon a while ago and does not remember when she last had it. She was able to confirm she is no longer taking bupropion and hydroxyzine. She takes magnesium and potassium supplements over the counter as well as a gas pill as needed. Patient emphasized receiving lorazepam during her previous hospitalization but PDMP does not show recent claims for a take home prescription (2 DS in Sep 2024), left off of med list. Patient did not recognize furosemide or spironolactone despite recent pick ups for both confirmed with [facility] and [facility] pharmacy. Hospitalist is aware, left on med list.
[2025-01-23 20:59] VITALS: BP 112/58; PULSE 86; RESP 18; TEMP 36.5; O2SAT 98
[2025-01-23] MEDS: Lactulose 20 GM/30 ML SOLUTION 10 GM PO (21:10)
[2025-01-23] MEDS: Gabapentin 100 MG CAPSULE PO (21:10)
[2025-01-23] MEDS: Melatonin 3 MG TABLET 6 MG PO (21:52)
[2025-01-23] MEDS: oxyCODONE HCl Immed Release 5 MG TABLET PO (21:52)
[2025-01-23] MEDS: Lactated Ringers 1,000 ML 125 ML IVCONT (21:53)
[2025-01-23 22:55] VITALS: BP 113/57; PULSE 83; RESP 18; TEMP 37.1; O2SAT 96
[2025-01-23] MEDS: HYDROmorphone HCl 0.5 MG/0.5 ML SYRINGE IVPUSH (22:58)
[2025-01-23] MEDS: 0.9 % Sodium Chloride Flush 3 ML SYRINGE IVFLUSH (22:59)
[2025-01-24 00:14] LABS: CDiff Gene PCR NEGATIVE (Negative)
[2025-01-24 03:36] VITALS: BP 135/68; PULSE 98; RESP 18; TEMP 37.2; O2SAT 99
[2025-01-24] MEDS: HYDROmorphone HCl 0.5 MG/0.5 ML SYRINGE IVPUSH ×5 (03:36→20:41)
[2025-01-24] MEDS: Lactated Ringers 1,000 ML 125 ML IVCONT (05:01)
[2025-01-24 06:49] LABS: MANUAL DIFF FLAG NO
[2025-01-24 07:11] LABS: Alanine Aminotransferase 51 U/L (0-31); Albumin Level 2.4 g/dL (3.5-5.0); Alkaline Phosphatase 64 U/L (39-117); Anion Gap 13 (12-20); Aspartate Amino Transferase 100 U/L (5-31); Bilirubin Direct 2.5 mg/dL (0.0-0.5); Bilirubin Total 3.4 mg/dL (0.0-1.0); Blood Urea Nitrogen 31 mg/dL (9-16); Calcium 7.5 mg/dL (8.4-10.2); Carbon Dioxide 14 mmol/L (22-29); Chloride 110 mmol/L (96-108); Creatinine Clr Calc Pharmacy 33.3; Estimated Glomerular Filt Rate 25; Glucose Random 86 mg/dL (60-115); Potassium 3.6 mmol/L (3.3-5.1); Sodium 133 mmol/L (135-145); Total Protein 6.6 g/dL (6.5-8.0)
[2025-01-24 07:12] LABS: Basophils Percent Auto 0.5 % (0-2); Eosinophils Absolute Auto 0.1 X10*3/uL (0.0-0.4); Eosinophils Percent Auto 3.1 % (0-4); Hematocrit 22.1 % (37.0-47.0); Hemoglobin 7.4 g/dl (12.0-16.0); Imm Gran Abs Auto 0.02 X10*3/uL (0.00-0.03); Imm Gran Pct Auto 0.5 % (0.0-0.4); Lymphocytes Percent Auto 23.5 % (20-40); Mean Corpuscular HGB Conc 33.5 g/dl (31.0-35.0); Mean Corpuscular Hemoglobin 34.4 pg (27.0-33.0); Mean Corpuscular Volume 102.8 fL (80.0-98.0); Mean Platelet Volume 10.4 fL (9.4-12.3); Monocytes Absolute Auto 0.3 X10*3/uL (0.1-1.2); Monocytes Percent Auto 6.7 % (2-11); Neutrophils Absolute Auto 2.7 x10*3/uL (2.0-8.3); Neutrophils Percent Auto 65.7 % (45-73); Red Blood Count 2.15 X10*6/uL (4.20-5.50); Red Cell Distribution Width 19.9 % (11.0-16.0); White Blood Count 4.2 X10*3/uL (4.8-10.8)
[2025-01-24 07:16] LABS: Platelet Count 82 X10*3/uL (160-400); Prothrombin Time 23.7 SEC (10.9-12.4)
[2025-01-24 07:48] LABS: Folate 15.5 ng/mL (> or = 4.0); Vitamin B12 > 2000 pg/mL (200-900)
--- NOTE | 2025-01-24 07:59 | P.PNIM_ITS ---
Subjective Subjective Date of Service: 01/24/25 Interval History: f/u on abdominal pain, decompensated liver cirrhosis recent history of MRSA bacteremia and paraspinal abscess Physical Exam 2 Vital Signs: Vital Signs: Last Vital Signs Temp 98.9 F 01/24/25 03:36 Pulse 98 01/24/25 03:36 Resp 18 01/24/25 03:36 BP 135/68 01/24/25 03:36 Pulse Ox 99 01/24/25 03:36 O2 Del Method Room Air 01/24/25 03:36 BMI result Body Mass Index 28.8 Const: Other: Constitutional - Awake and Alert, No apparent distress Eyes - PERRLA, EOMI, sclerae icterus Cardiovascular - S1S2, RRR, IV/ holosystolic murmur, No edema Respiratory - Normal lung expansion, Normal respiratory effort, No respiratory distress, CTA bilaterally Gastrointestinal - mild diffuse tenderness to palpation, ND; +BS; No rebound or guarding Extremities - no calf tenderness bilaterally, no swelling Skin - Warm/Dry. Jaundice Neurological - Alert & oriented x3 Psychological - Appropriate affect Objective Data Active Medications Acetaminophen (Acetaminophen 325 Mg Tablet) 650 mg PO Q6H PRN PRN Reason: Pain, Mild 1-3,fever,headache Albuterol Sulfate (Albuterol Sulfate 90 Mcg 8 Gm Inhaler) 2 puff INHALE QID PRN PRN Reason: wheezing Buprenorphine/Naloxone (Buprenorphine/Naloxone 8/2 Mg Film) 1 film SUBLINGUAL BID [facility] Last Admin: 01/23/25 21:53 Dose: Not Given Documented By: REYNA Non-Admin Reason: Patient Refused Calcium Carbonate (Calcium Carbonate 750 Mg Tab.Chew) 750 mg PO Q4H PRN PRN Reason: Heartburn Calcium Carbonate (Calcium Oyster Shell Elemental 500 Mg Tablet) 500 mg PO DAILY PRN PRN Reason: Heartburn Ceftriaxone Sodium (Ceftriaxone Sodium 1 Gm Vial) 1 gm IVPUSH Q24H SKYE Gabapentin (Gabapentin 100 Mg Capsule) 100 mg PO BID [facility] Last Admin: 01/23/25 21:10 Dose: 100 mg Documented By: REYNA Hydromorphone HCl (Hydromorphone Hcl 0.5 Mg/0.5 Ml Syringe) 0.5 mg IVPUSH Q4H PRN; Protocol PRN Reason: Breakthrough Pain Last Admin: 01/24/25 03:36 Dose: 0.5 mg Documented By: REYNA Vancomycin HCl 750 mg/ Sodium (Chloride) 265 mls @ 265 mls/hr IV Q24H [facility] Lactated Ringer's (Lr) 1,000 mls @ 125 mls/hr IVCONT .Q8H [facility] Last Admin: 01/24/25 05:01 Dose: 125 mls/hr Documented By: REYNA Lactulose (Lactulose 20 Gm/30 Ml Solution) 10 gm PO BID [facility] Last Admin: 01/23/25 21:10 Dose: 10 gm Documented By: REYNA Magnesium Hydroxide (Milk Of Magnesia 30 Ml Oral.Susp) 30 ml PO DAILY PRN PRN Reason: Constipation Melatonin (Melatonin 3 Mg Tablet) 6 mg PO BEDTIME PRN PRN Reason: Insomnia Last Admin: 01/23/25 21:52 Dose: 6 mg Documented By: REYNA Non-Formulary Medication (Ablbhu-Wybyjpuy-Ewkfild [Creon]) 1 cap PO TIDWM [facility] Oxycodone HCl (Oxycodone Hcl Immed Release 5 Mg Tablet) 5 mg PO Q6H PRN PRN Reason: Pain, Moderate(Pain Scale 4-6) Last Admin: 01/23/25 21:52 Dose: 5 mg Documented By: REYNA Pharmacy Consult (Consult Rx Vancomycin Dosing) 1 each MISCELLANE DAILY PRN PRN Reason: Consult order Sodium Chloride (0.9 % Sodium Chloride Flush 3 Ml Syringe) 3 ml IVFLUSH QSHIFT [facility] Last Admin: 01/23/25 22:59 Dose: 3 ml Documented By: REYNA Labs 01/24/25 06:12 01/24/25 06:12 Labs: Laboratory Results - last 24 hr 01/23/25 01/23/25 01/23/25 11:15 11:33 12:30 MCV 101.8 H MCH 33.8 H MCHC 33.2 RDW 20.0 H Plt Count 75 L D MPV 10.4 Immature Gran % (Auto) 0.2 Neut % (Auto) 71.1 Lymph % (Auto) 18.5 L [place] % (Auto) 7.2 Eos % (Auto) 2.8 Baso % (Auto) 0.2 Lymph # (Auto) 0.9 L [place] # (Auto) 0.4 Eos # (Auto) 0.1 Baso # (Auto) 0.0 Abs Immat Gran (auto) 0.01 Absolute Neuts (auto) 3.6 Absolute Nucleated RBC 0.000 Nucleated RBC % (auto) 0.0 PT 22.1 H INR 1.9 H VBG pH VBG pCO2 VBG pO2 VBG HCO3 VBG O2 Saturation VBG Base Excess Anion Gap 11 L Estim Creat Clear Calc 28.8 Estimated GFR 21 Random Glucose 114 Lactic Acid 1.4 Calcium 8.3 L D Magnesium 1.6 Total Bilirubin 4.3 H Direct Bilirubin 3.1 H AST 119 H ALT 67 H Alkaline Phosphatase 77 Total Protein 7.3 Albumin 2.6 L Lipase 17 Vitamin B12 Folate Urine Color Urine Appearance Urine pH Ur Specific [place] Urine Protein Urine Glucose (UA) Urine Ketones Urine Blood Urine Nitrite Ur Leukocyte Esterase Urine RBC Urine WBC Ur Squamous Epith Cells Urine Bacteria Hyaline Casts Peritoneal WBC Peritoneal RBC Periton Neutrophils Periton Lymphocytes Peritoneal Monocytes Peritoneal Other Cells Urine Opiates Screen Ur Buprenorphine Scrn Ur Oxycodone Screen Urine Methadone Screen Urine Fentanyl Screen Ur Barbiturates Screen Ur Phencyclidine Scrn Ur Amphetamines Screen U Benzodiazepines Scrn Urine Cocaine Screen U Marijuana (THC) Screen Ethyl Alcohol < 10 C. difficile Tox B Gene 01/23/25 01/23/25 01/23/25 14:57 16:26 17:27 MCV MCH MCHC RDW Plt Count MPV Immature Gran % (Auto) Neut % (Auto) Lymph % (Auto) [place] % (Auto) Eos % (Auto) Baso % (Auto) Lymph # (Auto) [place] # (Auto) Eos # (Auto) Baso # (Auto) Abs Immat Gran (auto) Absolute Neuts (auto) Absolute Nucleated RBC Nucleated RBC % (auto) PT INR VBG pH 7.30 L VBG pCO2 26 VBG pO2 48 VBG HCO3 13 L VBG O2 Saturation 74.0 VBG Base Excess -11.4 Anion Gap Estim Creat Clear Calc Estimated GFR Random Glucose Lactic Acid Calcium Magnesium Total Bilirubin Direct Bilirubin AST ALT Alkaline Phosphatase Total Protein Albumin Lipase Vitamin B12 Folate Urine Color Yellow Urine Appearance Clear Urine pH 5.5 Ur Specific [place] 1.010 Urine Protein Trace Urine Glucose (UA) Negative Urine Ketones Negative Urine Blood Large (3+) H Urine Nitrite Negative Ur Leukocyte Esterase Moderate (2+) H Urine RBC 3-5 H Urine WBC 21-50 H Ur Squamous Epith Cells 11-20 Urine Bacteria None Seen Hyaline Casts 3-5 Peritoneal WBC 0.301 Peritoneal RBC < 0.002 Periton Neutrophils 13 Periton Lymphocytes 23 Peritoneal Monocytes 46 Peritoneal Other Cells 18 Urine Opiates Screen POSITIVE H Ur Buprenorphine Scrn Positive H Ur Oxycodone Screen Not Detected Urine Methadone Screen Positive H Urine Fentanyl Screen POSITIVE H Ur Barbiturates Screen POSITIVE H Ur Phencyclidine Scrn Not Detected Ur Amphetamines Screen Not Detected U Benzodiazepines Scrn POSITIVE H Urine Cocaine Screen Not Detected U Marijuana (THC) Screen Not Detected Ethyl Alcohol C. difficile Tox B Gene 01/23/25 01/24/25 23:16 06:12 MCV 102.8 H MCH 34.4 H MCHC 33.5 RDW 19.9 H Plt Count 82 L MPV 10.4 Immature Gran % (Auto) 0.5 H Neut % (Auto) 65.7 Lymph % (Auto) 23.5 [place] % (Auto) 6.7 Eos % (Auto) 3.1 Baso % (Auto) 0.5 Lymph # (Auto) 1.0 L [place] # (Auto) 0.3 Eos # (Auto) 0.1 Baso # (Auto) 0.0 Abs Immat Gran (auto) 0.02 Absolute Neuts (auto) 2.7 Absolute Nucleated RBC 0.000 Nucleated RBC % (auto) 0.0 PT 23.7 H INR 2.0 H VBG pH VBG pCO2 VBG pO2 VBG HCO3 VBG O2 Saturation VBG Base Excess Anion Gap 13 Estim Creat Clear Calc 33.3 Estimated GFR 25 Random Glucose 86 Lactic Acid Calcium 7.5 L D Magnesium Total Bilirubin 3.4 H Direct Bilirubin 2.5 H AST 100 H ALT 51 H Alkaline Phosphatase 64 Total Protein 6.6 Albumin 2.4 L Lipase Vitamin B12 > 2000 H Folate 15.5 Urine Color Urine Appearance Urine pH Ur Specific [place] Urine Protein Urine Glucose (UA) Urine Ketones Urine Blood Urine Nitrite Ur Leukocyte Esterase Urine RBC Urine WBC Ur Squamous Epith Cells Urine Bacteria Hyaline Casts Peritoneal WBC Peritoneal RBC Periton Neutrophils Periton Lymphocytes Peritoneal Monocytes Peritoneal Other Cells Urine Opiates Screen Ur Buprenorphine Scrn Ur Oxycodone Screen Urine Methadone Screen Urine Fentanyl Screen Ur Barbiturates Screen Ur Phencyclidine Scrn Ur Amphetamines Screen U Benzodiazepines Scrn Urine Cocaine Screen U Marijuana (THC) Screen Ethyl Alcohol C. difficile Tox B Gene NEGATIVE Microbiology Microbiology Results: Microbiology 01/23/25 14:57 Gram Stain - Final Ascites Fluid Assessment and Plan (1) Abdominal pain: Status: Acute (2) Abdominal ascites: Status: Acute (3) IVELISSE (acute kidney injury): Status: Acute Plan 44-year-old female with history of hepatic cirrhosis with history of alcohol use disorder and hepatitis-C, or UD on Suboxone, chronic pancreatitis admitted for acute decompensation of hepatic cirrhosis and MRSA bacteremia Acute decompensation of hepatic cirrhosis with ascites, coagulopathy, and hyperbilirubinemia History of hepatitis-C and alcohol use disorder Total bili 4.3, direct bili 3.1, AST 119, ALT 67 s/p paracentesis in ed of about 2L Peritoneal fluid analysis pending Albumin x2 yesterday Continue lactulose Consider Lasix and spironolactone once BP stable Gastroenterology consult Follow liver panel, INR Acute kidney injury-prerenal vs Hepator renal syndrome (HRS) Urine studies pending Albumin x2, 1 L IVF in the ED. Avoid nephrotoxins Low-sodium diet Follow renal function and electrolytes Nephrology consult Acute non-anion gap metabolic acidosis r/t IVELISSE and liver failure PH 7.30, pCO2 26, bicarb now 114, will discuss with Nephrology rebicab replacement likely compensating, improving with IVF MRSA bacteremia dx 12/27 from paraspinal abscess drained 01/14 TTE at the time negative for endocarditis Had been on IV vancomycin but left against medical advice as she was recommended for SNF given history of IV drug abuse Resumed vancomycin Blood cultures pending Echocardiogram given new murmur ID consult Alcohol use disorder Reports last use was 2 months ago Monitor on CIWA, initiate phenobarbital showed evidence of withdrawal arise Chronic macrocytic anemia H/H baseline when compared with recent [facility] labs Vitamin B12 and folic acid level Polysubstance abuse/OUD--denying substance use but positive for opioid, fentanyl, barbitruate, benzo, along with methadone, suboxone Continue Suboxone Addiction medicine consult Chronic thrombocytopenia Due to above DVT prophylaxis- SCPs Full code Patient requires inpatient stay at least 2 midnights for management of acute decompensated cirrhosis with acute kidney injury and untreated MRSA bacteremia requiring IV fluid resuscitation, close monitoring of hepatic and renal function, as well as close monitoring of cultures and expert consultation Quality Stroke Does the patient have a stroke diagnosis?: No VTE Prior VTE?: No VTE Risk Level:: Medical - moderate - high VTE Device Contraindication: N/A - Device Ordered VTE Drug Contraindication: Treatment Not Indicated
[2025-01-24 08:00] VITALS: BP 114/64; PULSE 96; RESP 18; TEMP 36.8; O2SAT 98
--- NOTE | 2025-01-24 08:12 | MHC.CM.PN ---
Addendum entered by Nancy Hernandez 01/24/25 08:18: Patient did not request assistance with locating a new PCP; she states that she has been working on it. Original Note: CM met with Patient at bedside and addressed IMM with her, providing Patient with the original and a copy has been placed on the chart. Patient lives in a condo; her 10 year old Daughter stays with her Saturday - and she is with her Father now and Saturday-Saturday, each week. Patient states that she will need IV Vanco into February and she would like to receive this treatment at home. Patient is on Suboxone (that she has a script for and picks it up at [facility] in [place]) and a (+) tox screen; Patient will likely need to go to a SNF to receive her IV ABT & Suboxone(also, she has no PCP). CM has initiated and will follow for dc planning.Patient's Mother/HCP/[facility]gor[facility]ata will transport to home if a home dc is possible. CM will follow.
[2025-01-24] MEDS: Gabapentin 100 MG CAPSULE PO ×2 (08:27→20:36)
[2025-01-24] MEDS: 0.9 % Sodium Chloride Flush 3 ML SYRINGE IVFLUSH ×2 (08:27→20:41)
[2025-01-24] MEDS: Lipase/Prot/Amylase 12/38/60K CAPSULE.DR 3 CAP PO ×3 (08:27→16:24)
[2025-01-24] MEDS: Lactulose 20 GM/30 ML SOLUTION 10 GM PO ×2 (08:27→20:35)
[2025-01-24 09:00] LABS: Adenovirus F 40/41 Not Detected (Not Detect.); Astrovirus Not Detected (Not Detect.); Campylobacter Not Detected (Not Detect.); Cryptosporidium Not Detected (Not Detect.); Cyclospora cayetanensis Not Detected (Not Detect.); E. coli EAEC Not Detected (Not Detect.); E. coli EPEC Not Detected (Not Detect.); E. coli ETEC Not Detected (Not Detect.); E. coli STEC Not Detected (Not Detect.); Entamoeba histolytica Not Detected (Not Detect.); Giardia lamblia Not Detected (Not Detect.); Norovirus GI/GII Not Detected (Not Detect.); Plesiomonas shigelloides Not Detected (Not Detect.); Rotavirus A Not Detected (Not Detect.); Salmonella Not Detected (Not Detect.); Sapovirus Not Detected (Not Detect.); Shigella sp./EIEC Not Detected (Not Detect.); Vibrio Not Detected (Not Detect.); Vibrio Cholerae Not Detected (Not Detect.); Yersinia enterocolitica Not Detected (Not Detect.)
[2025-01-24] MEDS: oxyCODONE HCl Immed Release 5 MG TABLET PO ×2 (09:33→17:33)
[2025-01-24] MEDS: Calcium Carbonate 750 MG TAB.CHEW PO ×2 (10:15→17:33)
--- NOTE | 2025-01-24 10:27 | HO.ADDICT_ITS ---
History of Present Illness Date of Service: 01/24/25 Chief Complaint: Ascites, recent Paraspinal Abscess/MRSA Reason for Consult: AUD, OUD Sources of Information: patient interviewed and chart reviewed HPI Narrative: Patient is a 44 year old female with history of OUD and AUD medically admitted with decompensated liver cirrhosis with ascites. She reports that she was recently admitted to [facility] for several weeks for severe alcohol withdrawal --per her report she left [place] approx 4 days ago. During her admission she states she was transitioned from methadone 150mg daily to Buprenorphine 8mg TID due to EKG changes. She was tolerating Bupe, but was nervous about having left [facility] on self directed discharge, with no follow up clinic appt, so she had been taking less while at home She was home for 4-5 days before presenting to [facility] ED. She reports no illicit substance use for years . Verbalizing concern about fentanyl in UDS, and questioning if she was given this while at [facility]. As noted in H&P, she reports she left [facility] due to plan for admission to SNF in [place], to complete IV abx treatment for MRSA bacteremia. She states that would be very burdensome for her family, and she would have minimal support there. At this time, she has been declining her buprenorphine because she felt that her pain would not be appropriately managed with it, and feels that current doses of Dilaudid (0.5mg) and oxycodone (5mg) have been addressing pain. She reports her pain is from her ascites, which required paracentits in ED on 01/23. Denies any withdrawal sx, and appears overall comfortable, aside from ascites. Denies alcohol use, and states last drink was in November prior to admission at [facility]. Long standing history of AUD with liver cirrhosis, and multiple admissions for pancreatits. Review of Systems Constitutional: Reports as per HPI Diagnostics Vital Signs (24Hr): Vital Signs - 24 hr 01/23/25 15:09 01/23/25 17:45 01/23/25 20:59 Temperature 98.2 F 98.2 F 97.7 F Pulse Rate 87 87 86 Respiratory Rate 18 18 18 Blood Pressure 103/58 L 103/61 112/58 L Pulse Oximetry 99 99 98 Oxygen Delivery Method Room Air Room Air Room Air 01/23/25 22:55 01/24/25 03:36 01/24/25 08:00 Temperature 98.7 F 98.9 F 98.3 F Pulse Rate 83 98 96 Respiratory Rate 18 18 18 Blood Pressure 113/57 L 135/68 114/64 Pulse Oximetry 96 99 98 Oxygen Delivery Method Room Air Room Air Room Air BMI result Body Mass Index 28.8 Labs 01/24/25 06:12 01/24/25 06:12 Labs: Laboratory Results - last 48 hr 01/23/25 01/23/25 01/23/25 11:15 11:33 12:30 WBC 5.0 RBC 2.25 L D Hgb 7.6 L D Hct 22.9 L D MCV 101.8 H MCH 33.8 H MCHC 33.2 RDW 20.0 H Plt Count 75 L D MPV 10.4 Immature Gran % (Auto) 0.2 Neut % (Auto) 71.1 Lymph % (Auto) 18.5 L [place] % (Auto) 7.2 Eos % (Auto) 2.8 Baso % (Auto) 0.2 Lymph # (Auto) 0.9 L [place] # (Auto) 0.4 Eos # (Auto) 0.1 Baso # (Auto) 0.0 Abs Immat Gran (auto) 0.01 Absolute Neuts (auto) 3.6 Absolute Nucleated RBC 0.000 Nucleated RBC % (auto) 0.0 PT 22.1 H INR 1.9 H VBG pH VBG pCO2 VBG pO2 VBG HCO3 VBG O2 Saturation VBG Base Excess Sodium 131 L Potassium 4.3 D Chloride 109 H Carbon Dioxide 15 L Anion Gap 11 L BUN 37 H Creatinine 2.46 H Estim Creat Clear Calc 28.8 Estimated GFR 21 Random Glucose 114 Lactic Acid 1.4 Calcium 8.3 L D Magnesium 1.6 Total Bilirubin 4.3 H Direct Bilirubin 3.1 H AST 119 H ALT 67 H Alkaline Phosphatase 77 Troponin I High Sens 20.1 H Total Protein 7.3 Albumin 2.6 L Lipase 17 Vitamin B12 Folate Urine Color Urine Appearance Urine pH Ur Specific [place] Urine Protein Urine Glucose (UA) Urine Ketones Urine Blood Urine Nitrite Ur Leukocyte Esterase Urine RBC Urine WBC Ur Squamous Epith Cells Urine Bacteria Hyaline Casts Peritoneal WBC Peritoneal RBC Periton Neutrophils Periton Lymphocytes Peritoneal Monocytes Peritoneal Other Cells Stl C. cayetanensis PCR Stool Rotavirus A PCR Stl Adenov F PCR Stool Astrovirus (PCR) Stool Campylobacter PCR Stool Cryptosporidium PCR Stl Sh Tox Pr E STEC PCR Stool E coli O157 PCR Stl Enterotoxigenic E PCR Stool EPEC (PCR) Stool EAEC (PCR) Stl E. histolytica PCR Stool Giardia Lamblia PCR Stl P. shigelloides PCR Stool Salmonella PCR Stool Sapovirus (PCR) Stl Shigella/EIEC PCR St Y.enterocolitica PCR Stool Vibrio (PCR) Stl Vibrio cholerae PCR Stl Norovirus GI/GII PCR Urine Opiates Screen Ur Buprenorphine Scrn Ur Oxycodone Screen Urine Methadone Screen Urine Fentanyl Screen Ur Barbiturates Screen Ur Phencyclidine Scrn Ur Amphetamines Screen U Benzodiazepines Scrn Urine Cocaine Screen U Marijuana (THC) Screen Ethyl Alcohol < 10 C. difficile Tox B Gene 01/23/25 01/23/25 01/23/25 14:57 16:26 17:21 WBC RBC Hgb Hct MCV MCH MCHC RDW Plt Count MPV Immature Gran % (Auto) Neut % (Auto) Lymph % (Auto) [place] % (Auto) Eos % (Auto) Baso % (Auto) Lymph # (Auto) [place] # (Auto) Eos # (Auto) Baso # (Auto) Abs Immat Gran (auto) Absolute Neuts (auto) Absolute Nucleated RBC Nucleated RBC % (auto) PT INR VBG pH VBG pCO2 VBG pO2 VBG HCO3 VBG O2 Saturation VBG Base Excess Sodium Potassium Chloride Carbon Dioxide Anion Gap BUN Creatinine Estim Creat Clear Calc Estimated GFR Random Glucose Lactic Acid Calcium Magnesium Total Bilirubin Direct Bilirubin AST ALT Alkaline Phosphatase Troponin I High Sens 8.8 D Total Protein Albumin Lipase Vitamin B12 Folate Urine Color Yellow Urine Appearance Clear Urine pH 5.5 Ur Specific [place] 1.010 Urine Protein Trace Urine Glucose (UA) Negative Urine Ketones Negative Urine Blood Large (3+) H Urine Nitrite Negative Ur Leukocyte Esterase Moderate (2+) H Urine RBC 3-5 H Urine WBC 21-50 H Ur Squamous Epith Cells 11-20 Urine Bacteria None Seen Hyaline Casts 3-5 Peritoneal WBC 0.301 Peritoneal RBC < 0.002 Periton Neutrophils 13 Periton Lymphocytes 23 Peritoneal Monocytes 46 Peritoneal Other Cells 18 Stl C. cayetanensis PCR Stool Rotavirus A PCR Stl Adenov F 40/41 PCR Stool Astrovirus (PCR) Stool Campylobacter PCR Stool Cryptosporidium PCR Stl Sh Tox Pr E STEC PCR Stool E coli O157 PCR Stl Enterotoxigenic E PCR Stool EPEC (PCR) Stool EAEC (PCR) Stl E. histolytica PCR Stool Giardia Lamblia PCR Stl P. shigelloides PCR Stool Salmonella PCR Stool Sapovirus (PCR) Stl Shigella/EIEC PCR St Y.enterocolitica PCR Stool Vibrio (PCR) Stl Vibrio cholerae PCR Stl Norovirus GI/GII PCR Urine Opiates Screen POSITIVE H Ur Buprenorphine Scrn Positive H Ur Oxycodone Screen Not Detected Urine Methadone Screen Positive H Urine Fentanyl Screen POSITIVE H Ur Barbiturates Screen POSITIVE H Ur Phencyclidine Scrn Not Detected Ur Amphetamines Screen Not Detected U Benzodiazepines Scrn POSITIVE H Urine Cocaine Screen Not Detected U Marijuana (THC) Screen Not Detected Ethyl Alcohol C. difficile Tox B Gene 01/23/25 01/23/25 01/24/25 17:27 23:16 06:12 WBC 4.2 L RBC 2.15 L Hgb 7.4 L Hct 22.1 L MCV 102.8 H MCH 34.4 H MCHC 33.5 RDW 19.9 H Plt Count 82 L MPV 10.4 Immature Gran % (Auto) 0.5 H Neut % (Auto) 65.7 Lymph % (Auto) 23.5 [place] % (Auto) 6.7 Eos % (Auto) 3.1 Baso % (Auto) 0.5 Lymph # (Auto) 1.0 L [place] # (Auto) 0.3 Eos # (Auto) 0.1 Baso # (Auto) 0.0 Abs Immat Gran (auto) 0.02 Absolute Neuts (auto) 2.7 Absolute Nucleated RBC 0.000 Nucleated RBC % (auto) 0.0 PT 23.7 H INR 2.0 H VBG pH 7.30 L VBG pCO2 26 VBG pO2 48 VBG HCO3 13 L VBG O2 Saturation 74.0 VBG Base Excess -11.4 Sodium 133 L Potassium 3.6 Chloride 110 H Carbon Dioxide 14 L Anion Gap 13 BUN 31 H Creatinine 2.13 H Estim Creat Clear Calc 33.3 Estimated GFR 25 Random Glucose 86 Lactic Acid Calcium 7.5 L D Magnesium Total Bilirubin 3.4 H Direct Bilirubin 2.5 H AST 100 H ALT 51 H Alkaline Phosphatase 64 Troponin I High Sens Total Protein 6.6 Albumin 2.4 L Lipase Vitamin B12 > 2000 H Folate 15.5 Urine Color Urine Appearance Urine pH Ur Specific [place] Urine Protein Urine Glucose (UA) Urine Ketones Urine Blood Urine Nitrite Ur Leukocyte Esterase Urine RBC Urine WBC Ur Squamous Epith Cells Urine Bacteria Hyaline Casts Peritoneal WBC Peritoneal RBC Periton Neutrophils Periton Lymphocytes Peritoneal Monocytes Peritoneal Other Cells Stl C. cayetanensis PCR Not Detected Stool Rotavirus A PCR Not Detected Stl Adenov F 40/41 PCR Not Detected Stool Astrovirus (PCR) Not Detected Stool Campylobacter PCR Not Detected Stool Cryptosporidium PCR Not Detected Stl Sh Tox Pr E STEC PCR Not Detected Stool E coli O157 PCR Not applicable Stl Enterotoxigenic E PCR Not Detected Stool EPEC (PCR) Not Detected Stool EAEC (PCR) Not Detected Stl E. histolytica PCR Not Detected Stool Giardia Lamblia PCR Not Detected Stl P. shigelloides PCR Not Detected Stool Salmonella PCR Not Detected Stool Sapovirus (PCR) Not Detected Stl Shigella/EIEC PCR Not Detected St Y.enterocolitica PCR Not Detected Stool Vibrio (PCR) Not Detected Stl Vibrio cholerae PCR Not Detected Stl Norovirus GI/GII PCR Not Detected Urine Opiates Screen Ur Buprenorphine Scrn Ur Oxycodone Screen Urine Methadone Screen Urine Fentanyl Screen Ur Barbiturates Screen Ur Phencyclidine Scrn Ur Amphetamines Screen U Benzodiazepines Scrn Urine Cocaine Screen U Marijuana (THC) Screen Ethyl Alcohol C. difficile Tox B Gene NEGATIVE Mental Status Exam Mental Status Exam Patient Appearance: Well Grooomed and Appropriate Patient Orientation: Person, Place, Time and Situation Level of Consciousness: Awake, Appropriate and Alert Patient Behavior: Appropriate and Cooperative Mood Description: Anxious (regarding dispo) Affect Description: Calm Speech Pattern: Clear Medications Medications Current Medications Acetaminophen (Acetaminophen 325 Mg Tablet) 650 mg PO Q6H PRN PRN Reason: Pain, Mild 1-3,fever,headache Albuterol Sulfate (Albuterol Sulfate 90 Mcg 8 Gm Inhaler) 2 puff INHALE QID PRN PRN Reason: wheezing Lipase/Protease/Amylase (Lipase/Prot/Amylase 12/38/60k Capsule.) 3 cap PO TIDWM SKYE Last Admin: 01/24/25 08:27 Dose: 3 cap Buprenorphine/Naloxone (Buprenorphine/Naloxone 8/2 Mg Film) 1 film SUBLINGUAL BID [facility] Last Admin: 01/24/25 08:29 Dose: Not Given Calcium Carbonate (Calcium Carbonate 750 Mg Tab.Chew) 750 mg PO Q4H PRN PRN Reason: Heartburn Last Admin: 01/24/25 10:15 Dose: 750 mg Calcium Carbonate (Calcium Oyster Shell Elemental 500 Mg Tablet) 500 mg PO DAILY PRN PRN Reason: Heartburn Ceftriaxone Sodium (Ceftriaxone Sodium 1 Gm Vial) 1 gm IVPUSH Q24H [facility] Gabapentin (Gabapentin 100 Mg Capsule) 100 mg PO BID [facility] Last Admin: 01/24/25 08:27 Dose: 100 mg Hydromorphone HCl (Hydromorphone Hcl 0.5 Mg/0.5 Ml Syringe) 0.5 mg IVPUSH Q4H PRN; Protocol PRN Reason: Breakthrough Pain Last Admin: 01/24/25 08:29 Dose: 0.5 mg Vancomycin HCl 750 mg/ Sodium (Chloride) 265 mls @ 265 mls/hr IV Q24H [facility] Lactulose (Lactulose 20 Gm/30 Ml Solution) 10 gm PO BID [facility] Last Admin: 01/24/25 08:27 Dose: 10 gm Magnesium Hydroxide (Milk Of Magnesia 30 Ml Oral.Susp) 30 ml PO DAILY PRN PRN Reason: Constipation Melatonin (Melatonin 3 Mg Tablet) 6 mg PO BEDTIME PRN PRN Reason: Insomnia Last Admin: 01/23/25 21:52 Dose: 6 mg Oxycodone HCl (Oxycodone Hcl Immed Release 5 Mg Tablet) 5 mg PO Q6H PRN PRN Reason: Pain, Moderate(Pain Scale 4-6) Last Admin: 01/24/25 09:33 Dose: 5 mg Pharmacy Consult (Consult Rx Vancomycin Dosing) 1 each MISCELLANE DAILY PRN PRN Reason: Consult order Sodium Chloride (0.9 % Sodium Chloride Flush 3 Ml Syringe) 3 ml IVFLUSH QSHIFT [facility] Last Admin: 01/24/25 08:27 Dose: 3 ml Allergies Allergies Allergy/AdvReac Type Severity Reaction Status Date / Time lamotrigine [From LAMICTAL] Allergy Unknown UNKNOWN Verified 01/23/25 09:50 From COMPAZINE Allergy Unknown UNKNOWN Uncoded 07/14/20 16:49 Assessment & Plan Assessment & Plan (1) Opioid use disorder: Status: Acute Code(s): F11.90 - Opioid use, unspecified, uncomplicated Assessment and Plan: * dialudid and oxycodone as needed, should be tapered as dispo is finalized * will resume buporenorphine at discharge--will send new rx to cover until appt with OP provider * Will submit referral to [facility] for ongoing OUD and AUD treatment and support * will follow up in AM to provide information (2) Alcohol use disorder: Status: Acute Code(s): F10.90 - Alcohol use, unspecified, uncomplicated Assessment and Plan: * no acute withdrawal Total time managing care of this patient today __35__ minutes. PMFSH Past Medical History Medical History Hepatitis C Opioid use disorder Alcohol use disorder Hepatic cirrhosis Pancreatitis, chronic Surgical History Surgical History Hx of cholecystectomy Social History Social History Household Members: Children Housing: Condominium Alcohol intake: former Patient Tobacco Use Status: Former Tobacco user Smoked in Last 30 Days: No Use of substances other than those prescribed or required for medical reasons: No Last Used Substance Other:: patient denies drug use- postitive utox Currently Displaying Signs/Symptoms of Drug Intoxication Withdrawal: No Advance Directives: No Advance Directives Information Provided: Yes Recently lost weight without trying: No Nutrition Risks: No Nutritional Risk Patient : No service: No
[2025-01-24] MEDS: vancomycin HCL 750 MG in 0.9 % Sodium Chloride 250 ML 265 MG IV (12:31)
[2025-01-24] MEDS: cefTRIAXone sodium 1 GM VIAL IVPUSH (12:32)
[2025-01-24 13:45] VITALS: BP 121/63; PULSE 92; RESP 18; TEMP 36.7; O2SAT 100
[2025-01-24] MEDS: Sodium Bicarbonate 650 MG TABLET PO (14:02)
--- NOTE | 2025-01-24 17:43 | P.EN_ITS ---
Event Note Date of Service: 01/24/25 Event Note: GI Consult-Full note dictated-History from patient, her RN, and EMR. 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 She is followed by Dr. Dennison at [facility]. She has had complications from the cirrhosis including ascites, coagulopathy, thrombocytopenia, jaundice, and hepatic encephalopathy. She just left [facility] several days ago after an admission there for sepsis, ascites, and encephalopthy. Her main issue bringing her in the hospital seems to be refractory ascites, although she has not been using diuretics recently. She denies any history of GI bleeding. Her paracentesis yesterday was negative for SBP by cell count. She is anemic but there has been no sign of GI bleeding. She is currently alert and without any definitive asterixis. Rec: Supportive care, Renal consult before starting any diuretics, avoid nephrotoxins, therapeutic paracentesis with IV Albumin for comfort prn, empiric po PPI, avoid all NSAIDs and aspirin, trial of IV Vit K for the elevated PT/INR, and consider 1 or 2 units of PRBCs given her anemia so as to improve renal perfusion. Follow up labs in AM. I advised patient to continue her sobriety halfway and to F/U with Dr. Dennison at [facility] after discharge. She understood and was comfortable with this plan. Thanks. Time Spent With Patient Time: Total time managing care of this patient today ____ minutes.
[2025-01-24] MEDS: Omeprazole 20 MG CAPSULE.DR PO (17:57)
[2025-01-24] MEDS: Phytonadione (Vit K1) 10 MG in 0.9 % Sodium Chloride 50 ML 51 MG IV (18:25)
[2025-01-24] MEDS: Butalb/Acetamin/Caff 50/325/40 TABLET 1 TAB PO (18:37)
[2025-01-24 19:39] VITALS: BP 119/64; PULSE 93; RESP 18; TEMP 36.5; O2SAT 97
[2025-01-24] MEDS: Melatonin 3 MG TABLET 6 MG PO (20:41)
--- NOTE | 2025-01-24 22:44 | CONS_ITS ---
DATE OF SERVICE: 01/24/2025 REASON FOR CONSULTATION: Cirrhosis and ascites. HISTORY OF PRESENT ILLNESS: This has been obtained from the patient, the medical record, and the patient's nurse. The patient is a 44-year-old female with advanced cirrhosis in relation to chronic alcohol use, as well as possible hepatitis C. She is followed by Dr. Dennison at [facility]. The patient describes sobriety from alcohol since November. She describes a relatively prolonged hospitalization earlier this month at [facility], from which she left against medical advice just about 4 or 5 days ago. While there, she describes encephalopathy and sepsis from MRSA in relation to a paraspinal abscess, for which she is being treated with IV vancomycin. During the hospitalization at [facility], she did undergo paracenteses without any known finding of spontaneous bacterial peritonitis. The patient describes that she left [facility] against medical advice due to wanting to be near her family as they were talking about possibly transferring her to a long-term care facility for ongoing IV antibiotics and physical therapy. She is supposed to be receiving IV vancomycin for at least another few weeks in relation to the MRSA and paraspinal abscess. In any event, she came here due to increasing ascites. She has not been using any diuretics at home at least recently. She underwent a paracentesis yesterday in the ER that was negative for spontaneous bacterial peritonitis based on cell counts. The patient does describe a history of the hepatic encephalopathy, for which she is on lactulose. She describes her ongoing ascites. She denies any history of GI bleeding in the past nor presently. She has had some history of jaundice. She does describe a family history of some liver disease, but is not clear as to the etiology of that. Since admission here, she has continued to have some abdominal discomfort in relation to the ascites. She has been tolerating her diet. Her mental status has remained good. She does have a followup appointment scheduled with Dr. Dennison for early January at [facility]. Her medications here in the hospital include albuterol inhaler p.r.n., Suboxone, calcium carbonate, IV ceftriaxone, gabapentin, lactulose, pancreas enzyme, melatonin, oxycodone p.r.n., IV vancomycin. PAST MEDICAL HISTORY: Carpal tunnel surgery. Cholecystectomy. Cirrhosis in relation to chronic alcohol abuse and possible underlying hepatitis C. Cirrhosis has been complicated by ascites, hepatic encephalopathy, coagulopathy, thrombocytopenia, and some jaundice. She denies any history of GI bleeding. She denies history of [place], diabetes, stroke, nor lung disease. SOCIAL HISTORY: Alcohol use with sobriety since last month. She describes heavy alcohol use prior to that. FAMILY HISTORY: Positive for liver disease, although the etiology is not clear. REVIEW OF SYSTEMS: CONSTITUTIONAL: She has been feeling poorly at home with abdominal discomfort from the ascites. CARDIAC: No chest pain. PULMONARY: No cough or hemoptysis. GI: As above. Bowel movements have been loose on lactulose, but without any sign of bleeding. She denies any chronic heartburn, dysphagia, nor vomiting. PHYSICAL EXAMINATION: GENERAL: The patient is an alert, comfortable-appearing female, although she appears chronically ill. SKIN: Warm and dry. Some spider angiomata on her chest. No obvious jaundice. EYES: Minimally icteric sclerae. Moist mucous membranes. CARDIAC: Normal S1, S2 with a systolic murmur. CHEST: Clear. ABDOMEN: Soft and distended with ascites, with some mild diffuse tenderness, but without mass, rebound, or guarding. EXTREMITIES: Without edema. NEUROLOGIC: She is alert, answers questions appropriately, is oriented, and is without any definitive asterixis. LABORATORIES: White blood cell count 4.2, hemoglobin yesterday was 7.6 and today is 7.4 with MCV of 103. Platelets 82,000. Hemoglobin in August 2024, was 9.7. PT was 22.1 with an INR of 1.9 yesterday and 23.7 with an INR of 2.0 today. Sodium 133, BUN 31, creatinine 2.1. Yesterday, BUN was 37 with a creatinine of 2.46. In 2023, she had BUN of 5 with a creatinine 0.7. Total bilirubin was 4.3 yesterday and today is 3.4 with a direct bilirubin of 2.5. AST 100, ALT 15, alkaline phosphatase 64, albumin 2.4. B12 was over 2000 and folate was normal. A stool GI panel was negative for any pathogens. Paracentesis cell count was 300 white blood cells with only 13% neutrophils. She had a CT of the abdomen and pelvis without IV contrast yesterday, describing her known cirrhosis and ascites, as well as splenomegaly. There was no sign of any liver mass nor biliary disease. There were no other acute processes. IMPRESSION: The patient is a 44-year-old female, who has advanced liver disease in relation to chronic alcohol use. She shows some signs of decompensation with refractory ascites and some renal insufficiency, but no other acute processes in relation to liver disease at the present time. She does not show any signs of GI bleeding and her paracentesis was negative for spontaneous bacterial peritonitis. She presently does not appear to have significant encephalopathy on exam. Of most concern is the renal insufficiency and then she does have an order in for a nephrology consult already. I would await the strap stitcher's input prior to initiation of any diuretics in regard to the ascites. She may need periodic therapeutic paracenteses for comfort in which case I would administer IV albumin with that. It would be important to avoid any nephrotoxins and hepatotoxins. I have started her on a p.o. PPI empirically given the coagulopathy, thrombocytopenia, and tendency for GI bleeding in cirrhosis patients. 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 I have ordered a trial of IV vitamin K to see if that helps to correct the elevated PT and INR somewhat. I would also consider 1 or 2 units of blood given her anemia, so as to improve renal perfusion. I do not think she needs any type of endoscopic intervention in regard to the anemia given no report of GI bleeding. Followup laboratories have been ordered for the morning. I did advise to continue sobriety senior care and to follow up with Dr. Dennison at [facility] when she is discharged for appointment in early January. She understood all this and was comfortable with the plan. Thanks for the consultation. MD SHANELL Valdez/PRASHANTH / [id number]
[2025-01-25] MEDS: HYDROmorphone HCl 0.5 MG/0.5 ML SYRINGE IVPUSH ×6 (00:32→21:16)
[2025-01-25] MEDS: Calcium Carbonate 750 MG TAB.CHEW PO ×4 (01:44→23:41)
[2025-01-25] MEDS: oxyCODONE HCl Immed Release 5 MG TABLET PO ×3 (01:44→19:14)
[2025-01-25 03:56] VITALS: BP 116/58; PULSE 86; RESP 18; TEMP 36.3; O2SAT 97
[2025-01-25] MEDS: Omeprazole 20 MG CAPSULE.DR PO (05:50)
[2025-01-25 06:35] LABS: MANUAL DIFF FLAG NO
[2025-01-25 06:45] LABS: Basophils Percent Auto 0.5 % (0-2); Eosinophils Absolute Auto 0.2 X10*3/uL (0.0-0.4); Eosinophils Percent Auto 3.5 % (0-4); Hematocrit 22.8 % (37.0-47.0); Hemoglobin 7.4 g/dl (12.0-16.0); Imm Gran Abs Auto 0.01 X10*3/uL (0.00-0.03); Imm Gran Pct Auto 0.2 % (0.0-0.4); Lymphocytes Absolute Auto 1.1 X10*3/uL (1.2-4.9); Lymphocytes Percent Auto 26.5 % (20-40); Mean Corpuscular HGB Conc 32.5 g/dl (31.0-35.0); Mean Corpuscular Hemoglobin 33.2 pg (27.0-33.0); Mean Corpuscular Volume 102.2 fL (80.0-98.0); Mean Platelet Volume 9.6 fL (9.4-12.3); Monocytes Absolute Auto 0.3 X10*3/uL (0.1-1.2); Monocytes Percent Auto 7.7 % (2-11); Neutrophils Absolute Auto 2.6 x10*3/uL (2.0-8.3); Neutrophils Percent Auto 61.6 % (45-73); Red Blood Count 2.23 X10*6/uL (4.20-5.50); Red Cell Distribution Width 19.7 % (11.0-16.0); White Blood Count 4.3 X10*3/uL (4.8-10.8)
[2025-01-25 06:47] LABS: Platelet Count 68 X10*3/uL (160-400)
--- NOTE | 2025-01-25 07:00 | CA_ITS ---
Transthoracic Echocardiogram Patient (Last, First, Middle): Leslie Fitzgerald, Gender: Female Date of : 1980 Age: 44 Procedure Date: 01/25/2025 Procedure Type: Transthoracic Echocardiogram Location: S3E Height: 162.56 cm Weight: 76.2 kg BSA: 1.82 m2 Heart Rate: bpm BP: 116 / 58 mmHg Tree Killer: NITIN Referring MD: Charla TFAOYA Symptoms: MRSA bacteremia, murmur Study Quality: Adequate ECG Rhythm: Sinus Conclusions: - The left ventricular systolic function is low normal. The visually estimated ejection fraction is between 50-55%. - No obvious valvular pathology seen on this study. - There is a small loculated pericardial effusion overlying the left ventricle. Findings Left Ventricle Normal left ventricular cavity size. There is normal left ventricular wall thickness. The left ventricular systolic function is low normal. The visually estimated ejection fraction is between 50-55%. There is no evidence of regional wall motion abnormalities. Evidence suggests grade I (mild) diastolic dysfunction. Right Ventricle Mildly increased right ventricular cavity size. There is normal right ventricular systolic function. Atria The left atrium is mildly dilated. The right atrium is normal in size. Aortic Valve There is a normal trileaflet aortic valve. There is mild calcification of the aortic valve. There is no aortic valve stenosis. There is no aortic valve regurgitation. Mitral Valve The mitral valve appears normal. There is mild mitral valve regurgitation. There is no mitral valve stenosis. Pulmonic Valve The pulmonic valve is likely normal. Tricuspid Valve There is trace tricuspid valve regurgitation. There is no evidence of pulmonary hypertension. Great Vessels The sinuses of valsalva and aortic arch are normal in size. Venous The inferior vena cava was not well visualized. Pericardium/Pleural There is a small loculated pericardial effusion overlying the left ventricle. Prior Study Comparison No prior study available for comparison. Recommendations, Care & Conclusions No obvious valvular pathology seen on this study. Measurements 2D Linear Measurements IVSd: 0.87 0.6-0.9/0.6-1.0 cm LVIDd: 5.46 3.9-5.3/4.2-5.9 cm LVIDd Index: 3.00 2.4-3.2/2.2-3.1 cm/m2 LVIDs: 3.54 2.0-3.6 cm LVPWd: 0.96 0.7-1.1 cm Ao Root: 3.20 2.1-3.5 cm LA Diam: 4.70 2.7-3.8/3.0-4.0 cm LAIDs Index: 2.58 1.5-2.3 cm/m2 LV Mass: 232.81 67-162/88-224 g LV Mass Index: 127.92 43-95/49-115 g/m2 LVOT Diam: 2.10 3.0+(-)1.3 cm 2D Systolic Function EF 4C: 58.20 >55% EF 2C: 50.30 >55% EF BiP: 54.40 >55% Mitral Valve MV Pk E: 0.63 MV PK A: 0.67 MV Decel Time: 252.00 E/A: 0.90 E'Lateral: 6.53 E'Medial: 5.22 E/E' Med: 12.10 E/E' Lat: 9.70 PHT: 74.00 MVA PHT: 2.97 Decel Wilson: 2.52 Aortic Valve AoV Pk Rios: 1.89 AoV Mn Rios: 1.43 AoV VTI: 0.35 AoV Pk Grad: 14.00 Aov Mn Grad: 9.00 CIRILO Cont.VTI: 1.99 LVOT LVOT Pk Rios: 1.13 LVOT Mn Rios: 0.82 LVOT VTI: 0.20 LVOT Pk Grad: 5.00 LVOT Mn Grad: 3.00 LVOT Diam: 2.10 LVOT Area: 3.46 Diastolic Function MV Pk E: 0.63 MV Pk A: 0.67 E/A: 0.90 E'Medial: 5.22 E/E' Med: 12.10 E' Laterial: 6.53 E/E' Lat: 9.70 Right Ventricle TAPSE (mm): 33.00 TVS' Rios: 23.00 Tricuspid Valve TR Pk Rios: 2.12 TR Pk Grad: 18.00 RA Press: 3.00 RVSP: 21.00 Great Vessels Aorta Ao Root-2D: 3.20 2.0-3.7 cm Ao Asc: 3.10 2.1-3.4 cm Ao Arch: 2.60 Pulmonary Valve PV Pk Rios: 1.48 Peak PV Grad: 9.00 Updated in Other Vendor System with Status of Final Ron Brooks MD electronically signed on 01/25/2025 12:32:39 PM with status of Final
[2025-01-25 07:03] LABS: Alanine Aminotransferase 52 U/L (0-31); Albumin Level 2.4 g/dL (3.5-5.0); Alkaline Phosphatase 60 U/L (39-117); Anion Gap 10 (12-20); Aspartate Amino Transferase 99 U/L (5-31); Bilirubin Direct 2.4 mg/dL (0.0-0.5); Bilirubin Total 3.5 mg/dL (0.0-1.0); Blood Urea Nitrogen 28 mg/dL (9-16); Calcium 7.7 mg/dL (8.4-10.2); Carbon Dioxide 16 mmol/L (22-29); Chloride 109 mmol/L (96-108); Creatinine Clr Calc Pharmacy 34.1; Estimated Glomerular Filt Rate 26; Glucose Fasting 131 mg/dL (60-99); Potassium 3.5 mmol/L (3.3-5.1); Sodium 131 mmol/L (135-145); Total Protein 6.5 g/dL (6.5-8.0)
[2025-01-25 07:08] LABS: Prothrombin Time 23.2 SEC (10.9-12.4)
[2025-01-25] MEDS: Lipase/Prot/Amylase 12/38/60K CAPSULE.DR 3 CAP PO (07:25)
[2025-01-25] MEDS: Gabapentin 100 MG CAPSULE PO ×2 (07:26→19:14)
[2025-01-25] MEDS: Lactulose 20 GM/30 ML SOLUTION 10 GM PO ×2 (07:27→19:14)
[2025-01-25] MEDS: 0.9 % Sodium Chloride Flush 3 ML SYRINGE IVFLUSH ×3 (07:33→20:13)
[2025-01-25 07:56] VITALS: BP 126/65; PULSE 81; RESP 18; TEMP 36.2; O2SAT 99
[2025-01-25 08:37] LABS: Albumin Peritoneal Fluid 0.9; Glucose Peritoneal Fluid 98; Total Protein Peritoneal Fluid 1.9
--- NOTE | 2025-01-25 09:12 | P.PNIM_ITS ---
Subjective Subjective Date of Service: 01/25/25 Interval History: f/u on abdominal pain, decompensated liver cirrhosis recent history of MRSA bacteremia and paraspinal abscess and was supposed to be on director long term care Abx for [facility] Physical Exam 2 Vital Signs: Vital Signs: Last Vital Signs Temp 97.2 F 01/25/25 07:56 Pulse 81 01/25/25 07:56 Resp 18 01/25/25 07:56 BP 126/65 01/25/25 07:56 Pulse Ox 99 01/25/25 07:56 O2 Del Method Room Air 01/25/25 07:56 BMI result Body Mass Index 28.8 Const: Other: Constitutional - Awake and Alert, No apparent distress Eyes - PERRLA, EOMI, sclerae icterus Cardiovascular - S1S2, RRR, IV/ holosystolic murmur, No edema Respiratory - Normal lung expansion, Normal respiratory effort, No respiratory distress, CTA bilaterally Gastrointestinal - mild diffuse tenderness to palpation, ND; +BS; No rebound or guarding Extremities - no calf tenderness bilaterally, no swelling Skin - Warm/Dry. Jaundice Neurological - Alert & oriented x3 Psychological - Appropriate affect Objective Data Active Medications Acetaminophen (Acetaminophen 325 Mg Tablet) 650 mg PO Q6H PRN PRN Reason: Pain, Mild 1-3,fever,headache Albuterol Sulfate (Albuterol Sulfate 90 Mcg 8 Gm Inhaler) 2 puff INHALE QID PRN PRN Reason: wheezing Lipase/Protease/Amylase (Lipase/Prot/Amylase 12/38/60k Capsule.Dr) 3 cap PO TIDWM [facility] Last Admin: 01/25/25 07:25 Dose: 3 cap Documented By: PADDY Buprenorphine/Naloxone (Buprenorphine/Naloxone 8/2 Mg Film) 1 film SUBLINGUAL BID [facility] Last Admin: 01/25/25 07:33 Dose: Not Given Documented By: PADDY Non-Admin Reason: Patient Refused Calcium Carbonate (Calcium Carbonate 750 Mg Tab.Chew) 750 mg PO Q4H PRN PRN Reason: Heartburn Last Admin: 01/25/25 01:44 Dose: 750 mg Documented By: ANA CRISTINA Calcium Carbonate (Calcium Oyster Shell Elemental 500 Mg Tablet) 500 mg PO DAILY PRN PRN Reason: Heartburn Ceftriaxone Sodium (Ceftriaxone Sodium 1 Gm Vial) 1 gm IVPUSH Q24H [facility] Last Admin: 01/24/25 12:32 Dose: 1 gm Documented By: DAX Gabapentin (Gabapentin 100 Mg Capsule) 100 mg PO BID [facility] Last Admin: 01/25/25 07:26 Dose: 100 mg Documented By: PADDY Hydromorphone HCl (Hydromorphone Hcl 0.5 Mg/0.5 Ml Syringe) 0.5 mg IVPUSH Q4H PRN; Protocol PRN Reason: Breakthrough Pain Last Admin: 01/25/25 08:59 Dose: 0.5 mg Documented By: PADDY Vancomycin HCl 750 mg/ Sodium (Chloride) 265 mls @ 265 mls/hr IV Q24H [facility] Last Infusion: 01/24/25 13:59 Dose: Infused Documented By: AUDREY Albumin Human (Kedbumin 25 %) 100 mls @ 100 mls/hr IV Q6H [facility] Stop: 01/26/25 04:14 Lactulose (Lactulose 20 Gm/30 Ml Solution) 10 gm PO BID [facility] Last Admin: 01/25/25 07:27 Dose: 10 gm Documented By: PADDY Magnesium Hydroxide (Milk Of Magnesia 30 Ml Oral.Susp) 30 ml PO DAILY PRN PRN Reason: Constipation Melatonin (Melatonin 3 Mg Tablet) 6 mg PO BEDTIME PRN PRN Reason: Insomnia Last Admin: 01/24/25 20:41 Dose: 6 mg Documented By: ANA CRISTINA Omeprazole (Omeprazole 20 Mg Capsule.Dr) 20 mg PO DAILY@0630 [facility] Last Admin: 01/25/25 05:50 Dose: 20 mg Documented By: ANA CRISTINA Oxycodone HCl (Oxycodone Hcl Immed Release 5 Mg Tablet) 5 mg PO Q6H PRN PRN Reason: Pain, Moderate(Pain Scale 4-6) Last Admin: 01/25/25 07:30 Dose: 5 mg Documented By: PADDY Pharmacy Consult (Consult Rx Vancomycin Dosing) 1 each MISCELLANE DAILY PRN PRN Reason: Consult order Sodium Chloride (0.9 % Sodium Chloride Flush 3 Ml Syringe) 3 ml IVFLUSH QSHIFT [facility] Last Admin: 01/25/25 07:33 Dose: 3 ml Documented By: PADDY Labs 01/25/25 06:30 01/25/25 06:30 Labs: Laboratory Results - last 24 hr 01/23/25 01/23/25 01/25/25 14:57 23:16 06:30 MCV 102.2 H MCH 33.2 H MCHC 32.5 RDW 19.7 H Plt Count 68 L MPV 9.6 Immature Gran % (Auto) 0.2 Neut % (Auto) 61.6 Lymph % (Auto) 26.5 [place] % (Auto) 7.7 Eos % (Auto) 3.5 Baso % (Auto) 0.5 Lymph # (Auto) 1.1 L [place] # (Auto) 0.3 Eos # (Auto) 0.2 Baso # (Auto) 0.0 Abs Immat Gran (auto) 0.01 Absolute Neuts (auto) 2.6 Absolute Nucleated RBC 0.000 Nucleated RBC % (auto) 0.0 PT 23.2 H INR 2.0 H Anion Gap 10 L Estim Creat Clear Calc 34.1 Estimated GFR 26 Fasting Glucose 131 H Calcium 7.7 L Total Bilirubin 3.5 H Direct Bilirubin 2.4 H AST 99 H ALT 52 H Alkaline Phosphatase 60 Total Protein 6.5 Albumin 2.4 L Peritoneal Tot Protein 1.9 Peritoneal Albumin 0.9 Peritoneal Glucose 98 Stl C. cayetanensis PCR Not Detected Stool Rotavirus A PCR Not Detected Stl Adenov F 40/41 PCR Not Detected Stool Astrovirus (PCR) Not Detected Stool Campylobacter PCR Not Detected Stool Cryptosporidium PCR Not Detected Stl Sh Tox Pr E STEC PCR Not Detected Stool E coli O157 PCR Not applicable Stl Enterotoxigenic E PCR Not Detected Stool EPEC (PCR) Not Detected Stool EAEC (PCR) Not Detected Stl E. histolytica PCR Not Detected Stool Giardia Lamblia PCR Not Detected Stl P. shigelloides PCR Not Detected Stool Salmonella PCR Not Detected Stool Sapovirus (PCR) Not Detected Stl Shigella/EIEC PCR Not Detected St Y.enterocolitica PCR Not Detected Stool Vibrio (PCR) Not Detected Stl Vibrio cholerae PCR Not Detected Stl Norovirus GI/GII PCR Not Detected Microbiology Microbiology Results: Microbiology 01/23/25 16:55 Urine Culture - Final Urine clean catch - Clean Catch Midstream 01/23/25 14:57 Gram Stain - Final Ascites Fluid Anaerobic Culture - Preliminary No growth to date. Body Fluid Culture - Final No growth after 2 days 01/23/25 12:49 Blood Culture - Preliminary Blood - Venous No growth after 24 hours. 01/23/25 12:30 Blood Culture - Preliminary Blood - Venous No growth after 24 hours. Assessment and Plan (1) Abdominal pain: Status: Acute (2) Abdominal ascites: Status: Acute (3) IVELISSE (acute kidney injury): Status: Acute Plan 44-year-old female with history of hepatic cirrhosis with history of alcohol use disorder and hepatitis-C, or UD on Suboxone, chronic pancreatitis admitted for acute decompensation of hepatic cirrhosis and MRSA bacteremia Acute decompensation of hepatic cirrhosis with ascites, coagulopathy, and hyperbilirubinemia History of hepatitis-C and alcohol use disorder Total bili 4.3, direct bili 3.1, AST 119, ALT 67 s/p paracentesis in ed of about 2L Peritoneal fluid analysis pending Albumin x2 yesterday Continue lactulose Consider Lasix and spironolactone once BP stable Gastroenterology consult Follow liver panel, INR Acute kidney injury-prerenal vs Hepator renal syndrome (HRS), Cr is slightly better Urine studies pending Albumin 25 gm q 6 x 4 Avoid nephrotoxins Low-sodium diet Follow renal function and electrolytes Nephrology consult Acute non-anion gap metabolic acidosis, bicab is better r/t IVELISSE and liver failure PH 7.30, pCO2 26, bicarb now 114, will discuss with Nephrology rebicab replacement likely compensating, improving with IVF MRSA bacteremia dx 12/27 from paraspinal abscess drained 01/14 TTE at the time negative for endocarditis Had been on IV vancomycin but left against medical advice as she was recommended for SNF given history of IV drug abuse Resumed vancomycin Blood cultures negative so far Echocardiogram given new murmur ID consult Alcohol use disorder Reports last use was 2 months ago Monitor on CIWA, initiate phenobarbital showed evidence of withdrawal arise Coagulopathy INR 2 Vit K 10 mg daily x 3 days Chronic macrocytic anemia H/H baseline when compared with recent [facility] labs Vitamin B12 and folic acid level Polysubstance abuse/OUD--denying substance use but positive for opioid, fentanyl, barbitruate, benzo, along with methadone, suboxone Continue Suboxone Addiction medicine consult following Chronic thrombocytopenia Due to above DVT prophylaxis- SCPs Full code Patient requires inpatient stay at least 2 midnights for management of acute decompensated cirrhosis with acute kidney injury and untreated MRSA bacteremia requiring IV fluid resuscitation, close monitoring of hepatic and renal function, as well as close monitoring of cultures and expert consultation Quality Stroke Does the patient have a stroke diagnosis?: No VTE Prior VTE?: No VTE Risk Level:: Medical - moderate - high VTE Device Contraindication: N/A - Device Ordered VTE Drug Contraindication: Treatment Not Indicated
[2025-01-25] MEDS: diphenhydrAMINE HCL 25 MG CAPSULE PO ×2 (10:14→19:14)
[2025-01-25] MEDS: Albumin Human 25 % 100 ML IV ×3 (10:15→20:15)
--- NOTE | 2025-01-25 11:19 | MHC.CM.PN ---
PER MD ROUNDS PATIENT NOT MEDICALLY CLEARED FOR DC. MAY REQUIRE LT IV ABX. [facility] FOLLOWING. PER PATIENT, SHE MAY DECLINE TO GO. UNDERSTANDS THAT D/T NO PCP AND +UTOX ON ADMISSION, IV ABX AT HOME IS NOT POSSIBLE. AWAITING ID EVAL. CM WILL CONTINUE TO FOLLOW.
[2025-01-25 11:41] LABS: Vancomycin Random 24.7 mcg/mL (15-20)
[2025-01-25 11:45] LABS: Sodium Urine Random < 20.0 mmol/L
[2025-01-25] MEDS: cefTRIAXone sodium 1 GM VIAL IVPUSH (12:02)
--- NOTE | 2025-01-25 12:22 | PM.CNNEP ---
History of Present Illness Reason for Consult Consult date: 01/25/25 Reason for consult: IVELISSE Chief Complaint Chief complaint: Ascites, recent Paraspinal Abscess/MRSA History of Present Illness Narrative: 44-year-old female with hepatic cirrhosis with history of alcohol use disorder and hepatitis-C, or UD on Suboxone, chronic pancreatitis presented to the ED for evaluation of diffuse abdominal pain. She denies any fevers, chills, nausea, vomiting, shortness of breath. She has been compliant with lactulose. She states she was previously on methadone was recently switched to Suboxone and has been experiencing 4-5 episodes of diarrhea daily since she was switched. She states that she has not had any 2 months. She states last illicit/IV drug use was 20 years ago. She is following with Gastroenterology and is hoping for a liver transplant. In the ER, blood pressure was soft but no hypotension. No leukocytosis. Chronic stable normocytic anemia with H/H 7.6/22.9%, consistent with baseline labs from [facility]. Platelets 75,000. Creatinine 2.46, baseline 1.2. BUN 37. Sodium 131. CO2 15. VBG pending.. Lactic acid 1.4. Total bilirubin 4.3, direct bilirubin 3.1, AST 119, ALT 67. Initial troponin 20.1, repeat pending. Urinalysis with 3+ blood, 2+ leukocytes. Paracentesis performed at bedside of about 2L Peritoneal fluid analysis pending. She was recently admitted to [facility] 12/27-01/20 due to encephalopathy and required ICU treatment due to severe alcohol withdrawal treated with phenobarbital and subsequently Precedex drip. Underwent paracentesis of 1.6 L 01/07 and then subsequent paracentesis with 3.6 L 01/19 without any complication. Fluid analysis unavailable. Has undergone multiple paracentesis in the past. She was also septic with septic shock due to paraspinal abscess. Paraspinal abscess mid lumbar region greatest at L3-L4 drained on 01/14. PICC line was placed and patient was started on vancomycin as blood cultures were positive for MRSA bacteremia. TTE at that time ruled out endocarditis but patient left AMA as she did not want to go to SNF though vancomycin was recommended to be continued until February 28 per ID. She was admitted for further management. Nephrology has been consulted to assist in her clinical care during her current hospital stay Review of Systems Review of Systems Yes all other systems are reviewed and are negative PMFSH Past Medical History Medical History Hepatitis C Opioid use disorder Alcohol use disorder Hepatic cirrhosis Pancreatitis, chronic Surgical History Surgical History Hx of cholecystectomy Social History Social History Household Members: Children [facility] Alcohol intake: former Patient Tobacco Use Status: Former Tobacco user Smoked in Last 30 Days: No Use of substances other than those prescribed or required for medical reasons: No Last Used Substance Other:: patient denies drug use- postitive utox Currently Displaying Signs/Symptoms of Drug Intoxication Withdrawal: No Advance Directives: No Advance Directives Information Provided: Yes Recently lost weight without trying: No Nutrition Risks: No Nutritional Risk Patient : No service: No Meds Allergies Allergy/AdvReac Type Severity Reaction Status Date / Time lamotrigine [From LAMICTAL] Allergy Unknown UNKNOWN Verified 01/23/25 09:50 From COMPAZINE Allergy Unknown UNKNOWN Uncoded 07/14/20 16:49 Active Medications: Current Medications Acetaminophen (Acetaminophen 325 Mg Tablet) 650 mg PO Q6H PRN PRN Reason: Pain, Mild 1-3,fever,headache Albuterol Sulfate (Albuterol Sulfate 90 Mcg 8 Gm Inhaler) 2 puff INHALE QID PRN PRN Reason: wheezing Lipase/Protease/Amylase (Lipase/Prot/Amylase 12/38/60k Capsule.) 3 cap PO TIDWM [facility] Last Admin: 01/25/25 07:25 Dose: 3 cap Buprenorphine/Naloxone (Buprenorphine/Naloxone 8/2 Mg Film) 1 film SUBLINGUAL BID [facility] Last Admin: 01/25/25 07:33 Dose: Not Given Calcium Carbonate (Calcium Carbonate 750 Mg Tab.Chew) 750 mg PO Q4H PRN PRN Reason: Heartburn Last Admin: 01/25/25 01:44 Dose: 750 mg Calcium Carbonate (Calcium Oyster Shell Elemental 500 Mg Tablet) 500 mg PO DAILY PRN PRN Reason: Heartburn Ceftriaxone Sodium (Ceftriaxone Sodium 1 Gm Vial) 1 gm IVPUSH Q24H [facility] Last Admin: 01/25/25 12:02 Dose: 1 gm Diphenhydramine HCl (Diphenhydramine Hcl 25 Mg Capsule) 25 mg PO Q6H PRN PRN Reason: itchyness Last Admin: 01/25/25 10:14 Dose: 25 mg Gabapentin (Gabapentin 100 Mg Capsule) 100 mg PO BID [facility] Last Admin: 01/25/25 07:26 Dose: 100 mg Hydromorphone HCl (Hydromorphone Hcl 0.5 Mg/0.5 Ml Syringe) 0.5 mg IVPUSH Q4H PRN; Protocol PRN Reason: Breakthrough Pain Last Admin: 01/25/25 08:59 Dose: 0.5 mg Albumin Human (Kedbumin 25 %) 100 mls @ 100 mls/hr IV Q6H [facility] Stop: 01/26/25 04:14 Last Infusion: 01/25/25 11:15 Dose: Infused Vancomycin HCl 500 mg/ Sodium (Chloride) 110 mls @ 110 mls/hr IV Q24H [facility] Lactulose (Lactulose 20 Gm/30 Ml Solution) 10 gm PO BID [facility] Last Admin: 01/25/25 07:27 Dose: 10 gm Magnesium Hydroxide (Milk Of Magnesia 30 Ml Oral.Susp) 30 ml PO DAILY PRN PRN Reason: Constipation Melatonin (Melatonin 3 Mg Tablet) 6 mg PO BEDTIME PRN PRN Reason: Insomnia Last Admin: 01/24/25 20:41 Dose: 6 mg Omeprazole (Omeprazole 20 Mg Capsule.Dr) 20 mg PO DAILY@0630 [facility] Last Admin: 01/25/25 05:50 Dose: 20 mg Oxycodone HCl (Oxycodone Hcl Immed Release 5 Mg Tablet) 5 mg PO Q6H PRN PRN Reason: Pain, Moderate(Pain Scale 4-6) Last Admin: 01/25/25 07:30 Dose: 5 mg Pharmacy Consult (Consult Rx Vancomycin Dosing) 1 each MISCELLANE DAILY PRN PRN Reason: Consult order Phytonadione (Phytonadione (Vit K1) Oral 10 Mg/Ml Ampul) 10 mg PO DAILY [facility] Stop: 01/27/25 09:01 Sodium Chloride (0.9 % Sodium Chloride Flush 3 Ml Syringe) 3 ml IVFLUSH QSHIFT [facility] Last Admin: 01/25/25 07:33 Dose: 3 ml Home Medications ?Medication ?Instructions ?Recorded ?Confirmed ?Last Taken ?Type albuterol sulfate 90 mcg/actuation 2 puff inhalation QID PRN wheezing 09/25/24 01/23/25 Unknown History aerosol inhaler lactulose 10 gram/15 mL oral 15 ml PO BID 09/25/24 01/23/25 Unknown History solution buprenorphine 8 mg-naloxone 2 mg 1 film sublingual BID 01/23/25 01/23/25 01/23/25 History sublingual film calcium carbonate 500 mg PO DAILY PRN Heartburn 01/23/25 01/23/25 Unknown History furosemide 20 mg tablet 20 mg PO DAILY 01/23/25 01/23/25 Unknown History gabapentin 100 mg capsule 100 mg PO BID 01/23/25 01/23/25 Unknown History ibuprofen 200 mg tablet 400 mg PO Q6H PRN Pain 01/23/25 01/23/25 Unknown History gliahh-iszwkbsi-zxygoby 1 cap PO TIDWM 01/23/25 01/23/25 Unknown History 36,000-114,000-180,000 unit capsule,delay rel (Creon) spironolactone 50 mg tablet 50 mg PO DAILY 01/23/25 01/23/25 Unknown History Physical Exam Vital Signs: Last Vital Signs Temp 97.2 F 01/25/25 07:56 Pulse 81 01/25/25 07:56 Resp 18 01/25/25 07:56 BP 126/65 01/25/25 07:56 Pulse Ox 99 01/25/25 07:56 O2 Del Method Room Air 01/25/25 07:56 BMI result Body Mass Index 28.8 Const General: comfortable and no acute distress Orientation/consciousness: patient oriented x3 Eyes EOM: EOMs intact bilaterally Neck Neck: Yes supple Resp Auscultation: clear to auscultation bilaterally Cardio Jugular venous distension: no JVD Rate: regular rate GI Palpation (GI): Soft to palpation Auscultation: normal bowel sounds Skin General skin exam: no rashes or lesions noted Neuro General: patient oriented x3 and moves all extremities Results Lab Results 01/25/25 06:30 01/25/25 06:30 Lab results: Chemistry 01/23/25 01/24/25 01/25/25 11:33 06:12 06:30 Sodium 131 L 133 L 131 L Potassium 4.3 D 3.6 3.5 Carbon Dioxide 15 L 14 L 16 L BUN 37 H 31 H 28 H Creatinine 2.46 H 2.13 H 2.08 H Calcium 8.3 L D 7.5 L D 7.7 L Hematology 01/23/25 01/24/25 01/25/25 11:33 06:12 06:30 WBC 5.0 4.2 L 4.3 L Hgb 7.6 L D 7.4 L 7.4 L Plt Count 75 L D 82 L 68 L Urinalysis 01/23/25 16:26 Urine Color Yellow Urine Appearance Clear Urine pH 5.5 Ur Specific [place] 1.010 Urine Protein Trace Urine Glucose (UA) Negative Urine Ketones Negative Urine Blood Large (3+) H Urine Nitrite Negative Ur Leukocyte Esterase Moderate (2+) H Urine RBC 3-5 H Urine WBC 21-50 H Ur Squamous Epith Cells 11-20 Hyaline Casts 3-5 Assessment and Plan (1) IVELISSE (acute kidney injury): Status: Acute Plan IVELISSE multifactorial Has underlying HRS 2 @ baseline Currently Urine Na < 20 Holly infectious GN needs to be R/O Ordered C3/C4 25 % IV Albumin 25 Gram Q 6 hourly Serum creatinine stable C/W rest of current management Labs AM. Shall closely F/U Procedures Date of Service Date of Service: 01/25/25
[2025-01-25] MEDS: Phytonadione (Vit K1) Oral 10 MG/ML AMPUL PO (13:26)
[2025-01-25 16:32] VITALS: BP 128/64; PULSE 87; RESP 18; TEMP 36.3; O2SAT 99
[2025-01-25 19:07] VITALS: BP 102/50; PULSE 82; RESP 18; TEMP 36.6; O2SAT 97
[2025-01-25] MEDS: Melatonin 3 MG TABLET 6 MG PO (21:16)
[2025-01-25 21:27] LABS: Vancomycin Random 21.3 mcg/mL (15-20)
[2025-01-25] MEDS: Acetaminophen 325 MG TABLET 650 MG PO (23:41)
[2025-01-26] VITALS (9 sets, daily range): BP systolic 92–128; BP diastolic 53–77; PULSE 79–99; RESP 12–20; TEMP 36.3–37; O2SAT 97–100
[2025-01-26] MEDS: HYDROmorphone HCl 0.5 MG/0.5 ML SYRINGE IVPUSH ×6 (01:24→22:20)
[2025-01-26] MEDS: Albumin Human 25 % 100 ML IV ×5 (03:11→22:22)
[2025-01-26] MEDS: Calcium Carbonate 750 MG TAB.CHEW PO ×2 (05:34→20:43)
[2025-01-26] MEDS: Omeprazole 20 MG CAPSULE.DR PO (05:34)
[2025-01-26 06:40] LABS: Creatinine Clr Calc Pharmacy 34.3; Estimated Glomerular Filt Rate 26
[2025-01-26] MEDS: Lactulose 20 GM/30 ML SOLUTION 10 GM PO ×2 (07:01→19:14)
[2025-01-26] MEDS: Gabapentin 100 MG CAPSULE PO ×2 (07:01→19:14)
[2025-01-26] MEDS: oxyCODONE HCl Immed Release 5 MG TABLET PO ×3 (07:01→19:14)
[2025-01-26] MEDS: 0.9 % Sodium Chloride Flush 3 ML SYRINGE IVFLUSH ×2 (07:04→18:14)
[2025-01-26] MEDS: Lidocaine HCl 1 % MPF 5 ML VIAL SUBCUT (11:18)
[2025-01-26] MEDS: cefTRIAXone sodium 1 GM VIAL IVPUSH (11:40)
[2025-01-26] MEDS: Phytonadione (Vit K1) Oral 10 MG/ML AMPUL PO (12:54)
--- NOTE | 2025-01-26 13:31 | P.PNNP_ITS ---
Subjective Subjective Date of Service: 01/26/25 Interval history: Events noted. All recent data reviewed Physical Exam 2 Vital Signs: Vital Signs: Last Vital Signs Temp 97.4 F 01/26/25 11:31 Pulse 87 01/26/25 11:31 Resp 18 01/26/25 11:31 BP 107/61 01/26/25 11:31 Pulse Ox 99 01/26/25 11:31 O2 Del Method Room Air 01/26/25 11:31 BMI result Body Mass Index 28.8 Const: General: no acute distress Eyes: EOM: EOMs intact bilaterally Resp: Auscultation: diminished lung sounds Cardio: Rate: regular rate GI: Palpation (GI): Soft to palpation Neuro: General: moves all extremities Objective Data Labs 01/25/25 06:30 01/26/25 05:53 Labs: Laboratory Results - last 24 hr 01/25/25 01/26/25 01/26/25 20:56 05:50 05:53 Hold Purple Top SEE NOTE Creatinine 2.07 H Estim Creat Clear Calc 34.3 Estimated GFR 26 Random Vancomycin 21.3 H Microbiology Microbiology Results: Microbiology 01/23/25 14:57 Ascites Fluid Gram Stain - Final 01/23/25 14:57 Ascites Fluid Anaerobic Culture - Preliminary No growth to date. 01/23/25 14:57 Ascites Fluid Body Fluid Culture - Final No growth after 2 days 01/23/25 12:49 Blood - Venous Blood Culture - Preliminary No growth after 48 hours. 01/23/25 12:30 Blood - Venous Blood Culture - Preliminary No growth after 48 hours. 01/23/25 16:55 Urine clean catch - Clean Catch Midstream Urine Culture - Final Procedures Date of Service Date of Service: 01/26/25 Assessment & Plan Assessment and plan (1) IVELISSE (acute kidney injury): Status: Acute Plan IVELISSE multifactorial Has underlying HRS 2 @ baseline Currently Urine Na < 20 Holly infectious GN needs to be R/O Ordered C3/C4 Serum creatinine stable No indication for renal replacement C/W rest of current management Labs AM. Shall closely F/U Progress Note: Quality Stroke Does the patient have a stroke diagnosis?: No
[2025-01-26 14:35] LABS: Anion Gap 11 (12-20); Blood Urea Nitrogen 27 mg/dL (9-16); Calcium 8.4 mg/dL (8.4-10.2); Carbon Dioxide 15 mmol/L (22-29); Chloride 109 mmol/L (96-108); Glucose Random 105 mg/dL (60-115); Potassium 3.5 mmol/L (3.3-5.1); Sodium 131 mmol/L (135-145)
[2025-01-26] MEDS: diphenhydrAMINE HCL 25 MG CAPSULE PO ×2 (15:01→22:21)
[2025-01-26] MEDS: Acetaminophen 325 MG TABLET 650 MG PO ×2 (15:01→22:21)
[2025-01-26 15:29] LABS: Vancomycin Random 16.3 mcg/mL (15-20)
--- NOTE | 2025-01-26 16:30 | HO.PM.IMPN ---
Subjective Subjective Date of Service: 01/26/25 Interval History: f/u on abdominal pain, decompensated liver cirrhosis recent history of MRSA bacteremia and paraspinal abscess elevated vanco levels Review of Systems has ascitis no fever has some abd discomfort Physical Exam Vital Signs: Vital Signs: Last Vital Signs Temp 98.6 F 01/26/25 16:13 Pulse 95 01/26/25 16:13 Resp 18 01/26/25 16:13 BP 98/57 L 01/26/25 16:13 Pulse Ox 99 01/26/25 16:13 O2 Del Method Room Air 01/26/25 16:13 BMI result Body Mass Index 28.8 Appearance: Alert.? Oriented X3.? cvs: [id number], [id number] . res: clear to auscultation ,no rhonchii or wheezing GI- acitis,mild diffuse tenderness to palpation, ND; +BS; No rebound or guarding ext pulses present , no cyanosis. neuro: axo3 , nonfocal. Objective Data Active Medications Acetaminophen (Acetaminophen 325 Mg Tablet) 650 mg PO Q6H PRN PRN Reason: Pain, Mild 1-3,fever,headache Last Admin: 01/26/25 15:01 Dose: 650 mg Documented By: RAFIQ Albuterol Sulfate (Albuterol Sulfate 90 Mcg 8 Gm Inhaler) 2 puff INHALE QID PRN PRN Reason: wheezing Lipase/Protease/Amylase (Lipase/Prot/Amylase 12/38/60k Capsule.Dr) 3 cap PO TIDWM [facility] Last Admin: 01/26/25 13:01 Dose: Not Given Documented By: RAFIQ Non-Admin Reason: Med Not Available Buprenorphine/Naloxone (Buprenorphine/Naloxone 8/2 Mg Film) 1 film SUBLINGUAL BID [facility] Last Admin: 01/26/25 06:57 Dose: Not Given Documented By: RAFIQ Non-Admin Reason: Patient Refused Calcium Carbonate (Calcium Carbonate 750 Mg Tab.Chew) 750 mg PO Q4H PRN PRN Reason: Heartburn Last Admin: 01/26/25 05:34 Dose: 750 mg Documented By: SIS Calcium Carbonate (Calcium Oyster Shell Elemental 500 Mg Tablet) 500 mg PO DAILY PRN PRN Reason: Heartburn Ceftriaxone Sodium (Ceftriaxone Sodium 1 Gm Vial) 1 gm IVPUSH Q24H [facility] Last Admin: 01/26/25 11:40 Dose: 1 gm Documented By: RAFIQ Diphenhydramine HCl (Diphenhydramine Hcl 25 Mg Capsule) 25 mg PO Q6H PRN PRN Reason: itchyness Last Admin: 01/26/25 15:01 Dose: 25 mg Documented By: RAFIQ Gabapentin (Gabapentin 100 Mg Capsule) 100 mg PO BID [facility] Last Admin: 01/26/25 07:01 Dose: 100 mg Documented By: RAFIQ Hydromorphone HCl (Hydromorphone Hcl 0.5 Mg/0.5 Ml Syringe) 0.5 mg IVPUSH Q4H PRN; Protocol PRN Reason: Breakthrough Pain Last Admin: 01/26/25 13:50 Dose: 0.5 mg Documented By: RAFIQ Lactulose (Lactulose 20 Gm/30 Ml Solution) 10 gm PO BID [facility] Last Admin: 01/26/25 07:01 Dose: 10 gm Documented By: RAFIQ Magnesium Hydroxide (Milk Of Magnesia 30 Ml Oral.Susp) 30 ml PO DAILY PRN PRN Reason: Constipation Melatonin (Melatonin 3 Mg Tablet) 6 mg PO BEDTIME PRN PRN Reason: Insomnia Last Admin: 01/25/25 21:16 Dose: 6 mg Documented By: SIS Omeprazole (Omeprazole 20 Mg Capsule.Dr) 20 mg PO DAILY@0630 [facility] Last Admin: 01/26/25 05:34 Dose: 20 mg Documented By: SIS Oxycodone HCl (Oxycodone Hcl Immed Release 5 Mg Tablet) 5 mg PO Q6H PRN PRN Reason: Pain, Moderate(Pain Scale 4-6) Last Admin: 01/26/25 13:01 Dose: 5 mg Documented By: RAFIQ Phytonadione (Phytonadione (Vit K1) Oral 10 Mg/Ml Ampul) 10 mg PO DAILY [facility] Stop: 01/27/25 09:01 Last Admin: 01/26/25 12:54 Dose: 10 mg Documented By: RAFIQ Sodium Chloride (0.9 % Sodium Chloride Flush 3 Ml Syringe) 3 ml IVFLUSH QSHIFT [facility] Last Admin: 01/26/25 07:04 Dose: 3 ml Documented By: RAFIQ Labs 01/25/25 06:30 01/26/25 05:53 Labs: Laboratory Results - last 24 hr 01/25/25 01/26/25 01/26/25 20:56 05:50 05:53 Hold Purple Top SEE NOTE Anion Gap 11 L Estim Creat Clear Calc 34.3 Estimated GFR 26 Random Glucose 105 Calcium 8.4 D Random Vancomycin 21.3 H 01/26/25 14:57 Hold Purple Top Anion Gap Estim Creat Clear Calc Estimated GFR Random Glucose Calcium Random Vancomycin 16.3 Microbiology Microbiology Results: Microbiology 01/23/25 14:57 Gram Stain - Final Ascites Fluid Anaerobic Culture - Preliminary No growth to date. Body Fluid Culture - Final No growth after 2 days 01/23/25 12:49 Blood Culture - Preliminary Blood - Venous No growth after 48 hours. 01/23/25 12:30 Blood Culture - Preliminary Blood - Venous No growth after 48 hours. Assessment and Plan (1) IVELISSE (acute kidney injury): Status: Acute Plan 44-year-old female with history of hepatic cirrhosis with history of alcohol use disorder and hepatitis-C, or UD on Suboxone, chronic pancreatitis admitted for acute decompensation of hepatic cirrhosis and MRSA bacteremia Acute decompensation of hepatic cirrhosis with ascites, coagulopathy, and hyperbilirubinemia History of hepatitis-C and alcohol use disorder Total bili 4.3, direct bili 3.1, AST 119, ALT 67 s/p paracentesis in ed of about 2L Peritoneal fluid analysis-less likely sbp ,fluid culture prelim-negative plan: going for another paracentesis today Continue lactulose Consider Lasix and spironolactone once BP stable Gastroenterology consult Follow liver panel, INR Acute kidney injury-prerenal vs Hepator renal syndrome (HRS), Cr is slightly better Urine studies pending Albumin 25 gm q 6 x 4 Avoid nephrotoxins Low-sodium diet Follow renal function and electrolytes Nephrology following Acute non-anion gap metabolic acidosis, bicab is similar range r/t IVELISSE and liver failure continue close bmp monitering MRSA bacteremia dx 12/27 from paraspinal abscess drained 01/14 TTE at the time negative for endocarditis Had been on IV vancomycin but left against medical advice as she was recommended for SNF given history of IV drug abuse Blood cultures negative so far Echocardiogram TTE: seems fine ID consult-rec to check mri consider paraspinal abcess and mrsa bacteremia and patient left [facility] without antibiotics (recently) . continue ceftriaxone ,hold vanco due to elevated vanco trough , now in normal range ,will decide further use after mri results . Alcohol use disorder Reports last use was 2 months ago Monitor on CIWA, initiate phenobarbital showed evidence of withdrawal arise Coagulopathy INR 2 Vit K 10 mg daily 2/3 days Chronic macrocytic anemia H/H baseline when compared with recent [facility] labs Vitamin B12 and folic acid level Polysubstance abuse/OUD--denying substance use but positive for opioid, fentanyl, barbitruate, benzo, along with methadone, suboxone Continue Suboxone Addiction medicine consult following Chronic thrombocytopenia Due to above DVT prophylaxis- SCPs Full code Quality Stroke Does the patient have a stroke diagnosis?: No VTE Prior VTE?: No VTE Risk Level:: Medical - moderate - high VTE Device Contraindication: N/A - Device Ordered VTE Drug Contraindication: Treatment Not Indicated
[2025-01-26] MEDS: gadobutroL 10 ML VIAL IVPUSH (17:50)
--- NOTE | 2025-01-26 21:43 | P.CNID_ITS ---
History of Present Illness Data of Consult Service Date: 01/26/25 Requesting physician: Bill Garcia Primary Care Provider: None Physician HPI Reason for consult: back pain ?infection She presents with 7/10 abdominal and lower back pain. She has no fever or chills. She has gross ascites and has WBC 150 ascitic fluid and negative cultures. Blood cultures negative. She left [facility] apparently and didnt want further treatment. She has TTE negative. MRI done today shows septic arthritis L3-L4 with fluid posteriorlaterl joint space and no OM. Review of Systems 2 Review of Systems: Yes all other systems are reviewed and are negative [facility] Past Medical History Medical History (Updated 01/26/25 @ 21:48 by Janiya Klein MD) Septic arthritis of lumbar spine Hepatitis C Opioid use disorder Alcohol use disorder Hepatic cirrhosis Pancreatitis, chronic Family History Family history: reviewed and not pertinent Surgical History Surgical History Hx of cholecystectomy Social History Social History Household Members: Children Housing: [facility] Alcohol intake: former Patient Tobacco Use Status: Former Tobacco user Smoked in Last 30 Days: No Use of substances other than those prescribed or required for medical reasons: No Last Used Substance Other:: patient denies drug use- postitive utox Currently Displaying Signs/Symptoms of Drug Intoxication Withdrawal: No Advance Directives: No Advance Directives Information Provided: Yes Recently lost weight without trying: No Nutrition Risks: No Nutritional Risk Patient : No service: No Meds Allergies Allergy/AdvReac Type Severity Reaction Status Date / Time lamotrigine [From LAMICTAL] Allergy Unknown UNKNOWN Verified 01/23/25 09:50 From COMPAZINE Allergy Unknown UNKNOWN Uncoded 07/14/20 16:49 Active Medications: Current Medications Acetaminophen (Acetaminophen 325 Mg Tablet) 650 mg PO Q6H PRN PRN Reason: Pain, Mild 1-3,fever,headache Last Admin: 01/26/25 15:01 Dose: 650 mg Albuterol Sulfate (Albuterol Sulfate 90 Mcg 8 Gm Inhaler) 2 puff INHALE QID PRN PRN Reason: wheezing Lipase/Protease/Amylase (Lipase/Prot/Amylase 12/38/60k Capsule.Dr) 3 cap PO TIDWM [facility] Last Admin: 01/26/25 17:08 Dose: Not Given Buprenorphine/Naloxone (Buprenorphine/Naloxone 8/2 Mg Film) 1 film SUBLINGUAL BID [facility] Last Admin: 01/26/25 20:30 Dose: Not Given Calcium Carbonate (Calcium Carbonate 750 Mg Tab.Chew) 750 mg PO Q4H PRN PRN Reason: Heartburn Last Admin: 01/26/25 20:43 Dose: 750 mg Calcium Carbonate (Calcium Oyster Shell Elemental 500 Mg Tablet) 500 mg PO DAILY PRN PRN Reason: Heartburn Ceftriaxone Sodium (Ceftriaxone Sodium 1 Gm Vial) 1 gm IVPUSH Q24H [facility] Last Admin: 01/26/25 11:40 Dose: 1 gm Diphenhydramine HCl (Diphenhydramine Hcl 25 Mg Capsule) 25 mg PO Q6H PRN PRN Reason: itchyness Last Admin: 01/26/25 15:01 Dose: 25 mg Gabapentin (Gabapentin 100 Mg Capsule) 100 mg PO BID [facility] Last Admin: 01/26/25 19:14 Dose: 100 mg Hydromorphone HCl (Hydromorphone Hcl 0.5 Mg/0.5 Ml Syringe) 0.5 mg IVPUSH Q4H PRN; Protocol PRN Reason: Breakthrough Pain Last Admin: 01/26/25 18:07 Dose: 0.5 mg Albumin Human (Kedbumin 25 %) 100 mls @ 100 mls/hr IV Q6H [facility] Stop: 01/26/25 23:29 Last Infusion: 01/26/25 19:31 Dose: Infused Lactulose (Lactulose 20 Gm/30 Ml Solution) 10 gm PO BID [facility] Last Admin: 01/26/25 19:14 Dose: 10 gm Magnesium Hydroxide (Milk Of Magnesia 30 Ml Oral.Susp) 30 ml PO DAILY PRN PRN Reason: Constipation Melatonin (Melatonin 3 Mg Tablet) 6 mg PO BEDTIME PRN PRN Reason: Insomnia Last Admin: 01/25/25 21:16 Dose: 6 mg Omeprazole (Omeprazole 20 Mg Capsule.Dr) 20 mg PO DAILY@0630 [facility] Last Admin: 01/26/25 05:34 Dose: 20 mg Oxycodone HCl (Oxycodone Hcl Immed Release 5 Mg Tablet) 5 mg PO Q6H PRN PRN Reason: Pain, Moderate(Pain Scale 4-6) Last Admin: 01/26/25 19:14 Dose: 5 mg Phytonadione (Phytonadione (Vit K1) Oral 10 Mg/Ml Ampul) 10 mg PO DAILY [facility] Stop: 01/27/25 09:01 Last Admin: 01/26/25 12:54 Dose: 10 mg Sodium Chloride (0.9 % Sodium Chloride Flush 3 Ml Syringe) 3 ml IVFLUSH QSHIFT [facility] Last Admin: 01/26/25 18:14 Dose: 3 ml Home Medications ?Medication ?Instructions ?Recorded ?Confirmed ?Last Taken ?Type albuterol sulfate 90 mcg/actuation 2 puff inhalation QID PRN wheezing 09/25/24 01/23/25 Unknown History aerosol inhaler lactulose 10 gram/15 mL oral 15 ml PO BID 09/25/24 01/23/25 Unknown History solution buprenorphine 8 mg-naloxone 2 mg 1 film sublingual BID 01/23/25 01/23/25 01/23/25 History sublingual film calcium carbonate 500 mg PO DAILY PRN Heartburn 01/23/25 01/23/25 Unknown History furosemide 20 mg tablet 20 mg PO DAILY 01/23/25 01/23/25 Unknown History gabapentin 100 mg capsule 100 mg PO BID 01/23/25 01/23/25 Unknown History ibuprofen 200 mg tablet 400 mg PO Q6H PRN Pain 01/23/25 01/23/25 Unknown History [id number] 1 cap PO TIDWM 01/23/25 01/23/25 Unknown History 36,000-114,000-180,000 unit capsule,delay rel (Creon) spironolactone 50 mg tablet 50 mg PO DAILY 01/23/25 01/23/25 Unknown History Physical Exam 2 Vital Signs: Vital Signs: Last Vital Signs Temp 97.9 F 01/26/25 19:34 Pulse 89 01/26/25 19:34 Resp 20 01/26/25 19:34 BP 92/53 L 01/26/25 19:34 Pulse Ox 98 01/26/25 19:34 O2 Del Method Room Air 01/26/25 19:34 BMI result Body Mass Index 28.8 Const: General: cooperative HEENT: Head: Yes normal to inspection Face and sinus: Yes normal facial exam Mouth: Normal oral and palatal mucosa present Teeth and gingiva: d entition normal Eyes: General: appearance normal, both eyes and all related structures P upils: Equal, round and reactive pupils present Resp: Effort & Inspection: normal respiratory effort Cardio: Rate: regular rate Rhythm: regular rhythm GI: Other: swollen abdomen,ascites Palpation (GI): Soft to palpation and nontender Back/Spine/Pelvis: Other: back pain Skin: General skin exam: no rashes or lesions noted Neuro: General: moves all extremities Cranial nerves: Yes Equal, round and reactive pupils present Extrem: General: Yes normal to inspection Psych: Appearance: grossly normal Results Labs 01/25/25 06:30 01/26/25 05:53 Labs: BMP 01/26/25 05:53 Sodium 131 L Potassium 3.5 Chloride 109 H Carbon Dioxide 15 L BUN 27 H Creatinine 2.07 H Calcium 8.4 D Microbiology Microbiology Results: Microbiology 01/23/25 14:57 Ascites Fluid Gram Stain - Final 01/23/25 14:57 Ascites Fluid Anaerobic Culture - Preliminary No growth to date. 01/23/25 14:57 Ascites Fluid Body Fluid Culture - Final No growth after 2 days 01/23/25 12:49 Blood - Venous Blood Culture - Preliminary No growth after 48 hours. 01/23/25 12:30 Blood - Venous Blood Culture - Preliminary No growth after 48 hours. 01/23/25 16:55 Urine clean catch - Clean Catch Midstream Urine Culture - Final Assessment and Plan (1) Opioid use disorder: Status: Acute (2) Abdominal ascites: Status: Acute (3) Septic arthritis of lumbar spine: Status: Acute Plan She has lumbar septic arthritis with MRSA likely and now no bacteremia and no endocarditis. She ideally would receive IV Vancomycin for six weeks but refuses. Would give po Doxycycline for eight weeks and risk for and paralysis if infection spreads.Patient is aware and accepting
[2025-01-26] MEDS: Melatonin 3 MG TABLET 6 MG PO (22:21)
[2025-01-27] MEDS: HYDROmorphone HCl 0.5 MG/0.5 ML SYRINGE IVPUSH ×5 (02:49→19:28)
[2025-01-27 03:04] VITALS: BP 123/57; PULSE 86; RESP 18; TEMP 36.6; O2SAT 98
[2025-01-27] MEDS: Acetaminophen 325 MG TABLET 650 MG PO ×2 (05:42→20:33)
[2025-01-27] MEDS: oxyCODONE HCl Immed Release 5 MG TABLET PO ×3 (05:42→20:33)
[2025-01-27] MEDS: Omeprazole 20 MG CAPSULE.DR PO (05:43)
[2025-01-27 06:42] LABS: Creatinine Clr Calc Pharmacy 39.2; Estimated Glomerular Filt Rate 30
[2025-01-27 07:05] VITALS: BP 110/60; PULSE 81; RESP 18; TEMP 36.2; O2SAT 97
[2025-01-27] MEDS: Lactulose 20 GM/30 ML SOLUTION 10 GM PO ×2 (07:13→19:27)
[2025-01-27] MEDS: Gabapentin 100 MG CAPSULE PO ×2 (07:16→19:28)
[2025-01-27] MEDS: 0.9 % Sodium Chloride Flush 3 ML SYRINGE IVFLUSH ×3 (07:19→20:34)
[2025-01-27 07:57] VITALS: BP 132/65; PULSE 56; RESP 16; TEMP 36.8; O2SAT 97
[2025-01-27 08:21] LABS: Anion Gap 11 (12-20); Blood Urea Nitrogen 23 mg/dL (9-16); Calcium 8.8 mg/dL (8.4-10.2); Carbon Dioxide 16 mmol/L (22-29); Chloride 109 mmol/L (96-108); Glucose Random 111 mg/dL (60-115); Potassium 3.3 mmol/L (3.3-5.1); Sodium 133 mmol/L (135-145)
[2025-01-27] MEDS: Calcium Carbonate 750 MG TAB.CHEW PO ×2 (08:32→19:27)
[2025-01-27] MEDS: Albumin Human 25 % 100 ML IV ×2 (09:05→15:04)
[2025-01-27 10:12] LABS: Hematocrit 22.9 % (37.0-47.0); Hemoglobin 7.8 g/dl (12.0-16.0)
[2025-01-27] MEDS: Phytonadione (Vit K1) Oral 10 MG/ML AMPUL PO (10:40)
[2025-01-27 10:49] LABS: Iron 84 mcg/dL (30-160); Percent Iron Saturation 77 % (15-50); Total Iron Binding Capacity 109 mcg/dL (228-428); Unsaturated Iron Binding < 25 ug/dL
--- NOTE | 2025-01-27 11:04 | MHC.CM.PN ---
Per MD rounds patient not medically cleared for dc. CM will continue to follow.
[2025-01-27 11:17] LABS: Vancomycin Random 12.5 mcg/mL (15-20)
[2025-01-27] MEDS: cefTRIAXone sodium 1 GM VIAL IVPUSH (11:17)
[2025-01-27 11:21] LABS: Folate 14.3 ng/mL (> or = 4.0); Vitamin B12 1517 pg/mL (200-900)
--- NOTE | 2025-01-27 11:33 | HO.PM.IMPN ---
Subjective Subjective Date of Service: 01/27/25 Interval History: ? septic arthritis of L-spine Review of Systems has ascitis ,no back pain Physical Exam Vital Signs: Vital Signs: Last Vital Signs Temp 98.3 F 01/27/25 07:57 Pulse 56 01/27/25 07:57 Resp 16 01/27/25 07:57 BP 132/65 01/27/25 07:57 Pulse Ox 97 01/27/25 07:57 O2 Del Method Room Air 01/27/25 07:57 BMI result Body Mass Index 28.8 Appearance: Alert.? Oriented X3.? cvs: [id number], [id number] . res: clear to auscultation ,no rhonchii or wheezing GI- acitis,mild diffuse tenderness to palpation, ND; +BS; No rebound or guarding ext pulses present , no cyanosis. neuro: axo3 , nonfocal. Objective Data Active Medications Acetaminophen (Acetaminophen 325 Mg Tablet) 650 mg PO Q6H PRN PRN Reason: Pain, Mild 1-3,fever,headache Last Admin: 01/27/25 05:42 Dose: 650 mg Documented By: SIS Albuterol Sulfate (Albuterol Sulfate 90 Mcg 8 Gm Inhaler) 2 puff INHALE QID PRN PRN Reason: wheezing Lipase/Protease/Amylase (Lipase/Prot/Amylase 12/38/60k Capsule.Dr) 3 cap PO TIDWM [facility] Last Admin: 01/27/25 07:11 Dose: Not Given Documented By: RAFIQ Non-Admin Reason: Med Not Available Buprenorphine/Naloxone (Buprenorphine/Naloxone 8/2 Mg Film) 1 film SUBLINGUAL BID [facility] Last Admin: 01/27/25 07:12 Dose: Not Given Documented By: RAFIQ Non-Admin Reason: Patient Refused Calcium Carbonate (Calcium Carbonate 750 Mg Tab.Chew) 750 mg PO Q4H PRN PRN Reason: Heartburn Last Admin: 01/27/25 08:32 Dose: 750 mg Documented By: RAFIQ Calcium Carbonate (Calcium Oyster Shell Elemental 500 Mg Tablet) 500 mg PO DAILY PRN PRN Reason: Heartburn Ceftriaxone Sodium (Ceftriaxone Sodium 1 Gm Vial) 1 gm IVPUSH Q24H [facility] Last Admin: 01/27/25 11:17 Dose: 1 gm Documented By: GISSELL Diphenhydramine HCl (Diphenhydramine Hcl 25 Mg Capsule) 25 mg PO Q6H PRN PRN Reason: itchyness Last Admin: 01/26/25 22:21 Dose: 25 mg Documented By: SIS Gabapentin (Gabapentin 100 Mg Capsule) 100 mg PO BID [facility] Last Admin: 01/27/25 07:16 Dose: 100 mg Documented By: RAFIQ Hydromorphone HCl (Hydromorphone Hcl 0.5 Mg/0.5 Ml Syringe) 0.5 mg IVPUSH Q4H PRN; Protocol PRN Reason: Breakthrough Pain Last Admin: 01/27/25 11:17 Dose: 0.5 mg Documented By: LUCYANETME Albumin Human (Kedbumin 25 %) 100 mls @ 100 mls/hr IV Q6H [facility] Stop: 01/27/25 15:29 Last Infusion: 01/27/25 10:05 Dose: Infused Documented By: RAFIQ Vancomycin HCl 500 mg/ Sodium (Chloride) 110 mls @ 110 mls/hr IV Q24H [facility] Vancomycin HCl 750 mg/ Sodium (Chloride) 265 mls @ 265 mls/hr IV ONCE ONE Stop: 01/27/25 12:44 Lactulose (Lactulose 20 Gm/30 Ml Solution) 10 gm PO BID [facility] Last Admin: 01/27/25 07:13 Dose: 10 gm Documented By: RAFIQ Magnesium Hydroxide (Milk Of Magnesia 30 Ml Oral.Susp) 30 ml PO DAILY PRN PRN Reason: Constipation Melatonin (Melatonin 3 Mg Tablet) 6 mg PO BEDTIME PRN PRN Reason: Insomnia Last Admin: 01/26/25 22:21 Dose: 6 mg Documented By: SIS Omeprazole (Omeprazole 20 Mg Capsule.Dr) 20 mg PO DAILY@0630 [facility] Last Admin: 01/27/25 05:43 Dose: 20 mg Documented By: SIS Oxycodone HCl (Oxycodone Hcl Immed Release 5 Mg Tablet) 5 mg PO Q6H PRN PRN Reason: Pain, Moderate(Pain Scale 4-6) Last Admin: 01/27/25 05:42 Dose: 5 mg Documented By: SIS Pharmacy Consult (Consult Rx Vancomycin Dosing) 1 each MISCELLANE DAILY PRN PRN Reason: Consult order Sodium Chloride (0.9 % Sodium Chloride Flush 3 Ml Syringe) 3 ml IVFLUSH QSHIFT [facility] Last Admin: 01/27/25 07:19 Dose: 3 ml Documented By: RAFIQ Labs 01/27/25 09:44 01/27/25 06:18 Labs: Laboratory Results - last 24 hr 01/26/25 01/26/25 01/27/25 05:53 14:57 06:18 Anion Gap 11 L 11 L Estim Creat Clear Calc 34.3 39.2 Estimated GFR 26 30 Random Glucose 105 111 Calcium 8.4 D 8.8 Iron TIBC % Saturation Unsat Iron Binding Vitamin B12 Folate Random Vancomycin 16.3 Blood Type Antibody Screen 01/27/25 01/27/25 09:44 10:58 Anion Gap Estim Creat Clear Calc Estimated GFR Random Glucose Calcium Iron 84 TIBC 109 L % Saturation 77 H Unsat Iron Binding < 25 Vitamin B12 1517 H Folate 14.3 Random Vancomycin 12.5 L Blood Type A Positive Antibody Screen NEGATIVE Microbiology Microbiology Results: Microbiology 01/23/25 14:57 Gram Stain - Final Ascites Fluid Anaerobic Culture - Preliminary No growth to date. Body Fluid Culture - Final No growth after 2 days Assessment and Plan (1) IVELISSE (acute kidney injury): Status: Acute Plan 44-year-old female with history of hepatic cirrhosis with history of alcohol use disorder and hepatitis-C, or UD on Suboxone, chronic pancreatitis admitted for acute decompensation of hepatic cirrhosis and MRSA bacteremia Acute decompensation of hepatic cirrhosis with ascites, coagulopathy, and hyperbilirubinemia History of hepatitis-C and alcohol use disorder Total bili 4.3, direct bili 3.1, AST 119, ALT 67 s/p paracentesis in ed of about 2L Peritoneal fluid analysis-less likely sbp ,fluid culture prelim-negative plan: going for another paracentesis today Continue lactulose Consider Lasix and spironolactone once BP stable Gastroenterology consult Follow liver panel, INR Acute kidney injury-prerenal vs Hepator renal syndrome (HRS), Cr is slightly better Urine studies pending Albumin 25 gm q 6 x 4 Avoid nephrotoxins Low-sodium diet Follow renal function and electrolytes Nephrology following Acute non-anion gap metabolic acidosis, bicab is similar range r/t IVELISSE and liver failure continue close bmp monitering MRSA bacteremia dx 12/27 from paraspinal abscess drained 01/14 TTE at the time negative for endocarditis Had been on IV vancomycin but left against medical advice as she was recommended for SNF given history of IV drug abuse Blood cultures negative so far Echocardiogram TTE: seems fine mri Lspine :Septic arthritis of the left L3-L4 facet joint with associated joint effusion, which extends into the posterolateral epidural space, left neural foramen, as well as the paraspinous soft tissues as described above, with surrounding cellulitis. denies back pain ,has local mild erythema in lumbar area. ID consult-d/w mri results -vanco trough improving-restarted vanco ,continue ceftriaxone. neuro eval due to abnormal mri/recent paraspinal abscess/mrsa bacteremia ,moniter vanco trough . Alcohol use disorder Reports last use was 2 months ago Monitor on CIWA, initiate phenobarbital showed evidence of withdrawal arise Coagulopathy INR 2 Vit K 10 mg daily 2/3 days Chronic macrocytic anemia H/H baseline when compared with recent [facility] labs Vitamin B12 and folic acid level Polysubstance abuse/OUD--denying substance use but positive for opioid, fentanyl, barbitruate, benzo, along with methadone, suboxone Continue Suboxone Addiction medicine consult following Chronic thrombocytopenia Due to above DVT prophylaxis- SCPs Full code Quality Stroke Does the patient have a stroke diagnosis?: No VTE Prior VTE?: No VTE Risk Level:: Medical - moderate - high VTE Device Contraindication: N/A - Device Ordered VTE Drug Contraindication: Treatment Not Indicated
[2025-01-27] MEDS: vancomycin HCL 750 MG in 0.9 % Sodium Chloride 250 ML 265 MG IV (11:42)
[2025-01-27 15:19] VITALS: BP 113/58; PULSE 87; RESP 18; TEMP 36.6; O2SAT 100
--- NOTE | 2025-01-27 16:03 | MHC.RECOVRN ---
Met with pt to follow up, provide support, and call [facility] to initiate care for OUD. Pt laying in bed, awake, alert, engages in conversation. Pt reports abdominal pressure. Continues to decline senior care IV antibiotics, reports she wants to go home. Pt not feeling up to calling [facility] today, reports she is tired and would like to call tomorrow. Pt denies other questions or concerns for t/w. Plan to follow up tomorrow.
[2025-01-27] MEDS: Lipase/Prot/Amylase 12/38/60K CAPSULE.DR 3 CAP PO (16:23)
--- NOTE | 2025-01-27 17:32 | P.CNNE_ITS ---
History of Present Illness Data of Consult Service Date: 01/27/25 Primary Care Provider: None Physician HPI Reason for consult: Back pain and spinal abscess This is a 44-year-old female with history of hepatic cirrhosis with history of alcohol use disorder and hepatitis-C, or UD on Suboxone, chronic pancreatitis presented to the ED with diffuse abdominal pain. She denies any fevers, chills, nausea, vomiting, shortness of breath. She has been compliant with lactulose. She states she was previously on methadone was recently switched to Suboxone and has been experiencing 4-5 episodes of diarrhea daily since she was switched. She states that she has not had any 2 months. She states last illicit/IV drug use was 20 years ago. She is following with Gastroenterology and is hoping for a level transplant. She has an appointment on February 03 (Dr. Dennison). In the ED, blood pressure soft but no hypotension. No leukocytosis. Chronic stable normocytic anemia with H/H 7.6/22.9%, consistent with baseline labs from [facility]. Platelets 75,000. Creatinine 2.46, baseline 1.2. BUN 37. Sodium 131. CO2 15. VBG pending.. Lactic acid 1.4. Total bilirubin 4.3, direct bilirubin 3.1, AST 119, ALT 67. Initial troponin 20.1, repeat pending. Urinalysis with 3+ blood, 2+ leukocytes. Paracentesis performed at bedside of about 2L Peritoneal fluid analysis pending. She was admitted to [facility] 12/27-01/20 due to encephalopathy and required ICU treatment due to severe alcohol withdrawal treated with phenobarbital and subsequently Precedex drip. Underwent paracentesis of 1.6 L 01/07 and then subsequent paracentesis with 3.6 L 01/19 without any complication. Fluid analysis unavailable. Has undergone multiple paracentesis in the past. She was also septic with septic shock due to paraspinal abscess. Paraspinal abscess mid lumbar region greatest at L3-L4 drained on 01/14. PICC line was placed and patient was started on vancomycin as blood cultures were positive for MRSA bacteremia. MRI LS spine shows septic arthritis of left L3-4 facet joint with some epidural fluid. [facility] Past Medical History Medical History (Updated 01/26/25 @ 21:48 by Janiya Klein MD) Septic arthritis of lumbar spine Hepatitis C Opioid use disorder Alcohol use disorder Hepatic cirrhosis Pancreatitis, chronic Family History Family history: reviewed and not pertinent Surgical History Surgical History Hx of cholecystectomy Social History Social History Household Members: Children Housing: [facility] Alcohol intake: former Patient Tobacco Use Status: Former Tobacco user Smoked in Last 30 Days: No Use of substances other than those prescribed or required for medical reasons: No Last Used Substance Other:: patient denies drug use- postitive utox Currently Displaying Signs/Symptoms of Drug Intoxication Withdrawal: No Advance Directives: No Advance Directives Information Provided: Yes Recently lost weight without trying: No Nutrition Risks: No Nutritional Risk Patient : No service: No Meds Allergies Allergy/AdvReac Type Severity Reaction Status Date / Time lamotrigine [From LAMICTAL] Allergy Unknown UNKNOWN Verified 01/23/25 09:50 From COMPAZINE Allergy Unknown UNKNOWN Uncoded 07/14/20 16:49 Active Medications: Current Medications Acetaminophen (Acetaminophen 325 Mg Tablet) 650 mg PO Q6H PRN PRN Reason: Pain, Mild 1-3,fever,headache Last Admin: 01/27/25 05:42 Dose: 650 mg Albuterol Sulfate (Albuterol Sulfate 90 Mcg 8 Gm Inhaler) 2 puff INHALE QID PRN PRN Reason: wheezing Lipase/Protease/Amylase (Lipase/Prot/Amylase 12/38/60k Capsule.Dr) 3 cap PO TIDWM [facility] Last Admin: 01/27/25 16:23 Dose: 3 cap Buprenorphine/Naloxone (Buprenorphine/Naloxone 8/2 Mg Film) 1 film SUBLINGUAL BID [facility] Last Admin: 01/27/25 07:12 Dose: Not Given Calcium Carbonate (Calcium Carbonate 750 Mg Tab.Chew) 750 mg PO Q4H PRN PRN Reason: Heartburn Last Admin: 01/27/25 08:32 Dose: 750 mg Calcium Carbonate (Calcium Oyster Shell Elemental 500 Mg Tablet) 500 mg PO DAILY PRN PRN Reason: Heartburn Ceftriaxone Sodium (Ceftriaxone Sodium 1 Gm Vial) 1 gm IVPUSH Q24H [facility] Last Admin: 01/27/25 11:17 Dose: 1 gm Diphenhydramine HCl (Diphenhydramine Hcl 25 Mg Capsule) 25 mg PO Q6H PRN PRN Reason: itchyness Last Admin: 01/26/25 22:21 Dose: 25 mg Gabapentin (Gabapentin 100 Mg Capsule) 100 mg PO BID [facility] Last Admin: 01/27/25 07:16 Dose: 100 mg Hydromorphone HCl (Hydromorphone Hcl 0.5 Mg/0.5 Ml Syringe) 0.5 mg IVPUSH Q4H PRN; Protocol PRN Reason: Breakthrough Pain Last Admin: 01/27/25 15:19 Dose: 0.5 mg Vancomycin HCl 500 mg/ Sodium (Chloride) 110 mls @ 110 mls/hr IV Q24H [facility] Lactulose (Lactulose 20 Gm/30 Ml Solution) 10 gm PO BID [facility] Last Admin: 01/27/25 07:13 Dose: 10 gm Magnesium Hydroxide (Milk Of Magnesia 30 Ml Oral.Susp) 30 ml PO DAILY PRN PRN Reason: Constipation Melatonin (Melatonin 3 Mg Tablet) 6 mg PO BEDTIME PRN PRN Reason: Insomnia Last Admin: 01/26/25 22:21 Dose: 6 mg Omeprazole (Omeprazole 20 Mg Capsule.Dr) 20 mg PO DAILY@0630 [facility] Last Admin: 01/27/25 05:43 Dose: 20 mg Oxycodone HCl (Oxycodone Hcl Immed Release 5 Mg Tablet) 5 mg PO Q6H PRN PRN Reason: Pain, Moderate(Pain Scale 4-6) Last Admin: 01/27/25 12:59 Dose: 5 mg Pharmacy Consult (Consult Rx Vancomycin Dosing) 1 each MISCELLANE DAILY PRN PRN Reason: Consult order Sodium Chloride (0.9 % Sodium Chloride Flush 3 Ml Syringe) 3 ml IVFLUSH QSHIFT [facility] Last Admin: 01/27/25 15:04 Dose: 3 ml Home Medications ?Medication ?Instructions ?Recorded ?Confirmed ?Last Taken ?Type albuterol sulfate 90 mcg/actuation 2 puff inhalation QID PRN wheezing 09/25/24 01/23/25 Unknown History aerosol inhaler lactulose 10 gram/15 mL oral 15 ml PO BID 09/25/24 01/23/25 Unknown History solution buprenorphine 8 mg-naloxone 2 mg 1 film sublingual BID 01/23/25 01/23/25 01/23/25 History sublingual film calcium carbonate 500 mg PO DAILY PRN Heartburn 01/23/25 01/23/25 Unknown History furosemide 20 mg tablet 20 mg PO DAILY 01/23/25 01/23/25 Unknown History gabapentin 100 mg capsule 100 mg PO BID 01/23/25 01/23/25 Unknown History ibuprofen 200 mg tablet 400 mg PO Q6H PRN Pain 01/23/25 01/23/25 Unknown History [id number]-phuiptur-dypathc 1 cap PO TIDWM 01/23/25 01/23/25 Unknown History 36,000-114,000-180,000 unit capsule,delay rel (Creon) spironolactone 50 mg tablet 50 mg PO DAILY 01/23/25 01/23/25 Unknown History Physical Exam 2 Vital Signs: Vital Signs: Last Vital Signs Temp 98 F 01/27/25 15:19 Pulse 87 01/27/25 15:19 Resp 18 01/27/25 15:19 BP 113/58 L 01/27/25 15:19 Pulse Ox 100 01/27/25 15:19 O2 Del Method Room Air 01/27/25 15:19 BMI result Body Mass Index 28.8 Neuro: Other: Non focal exam. Results Labs 01/27/25 09:44 01/27/25 06:18 Labs: Short CBC 01/27/25 Range/Units 09:44 Hgb 7.8 L (12.0-16.0) g/dl Hct 22.9 L (37.0-47.0) % BMP 01/27/25 06:18 Sodium 133 L Potassium 3.3 Chloride 109 H Carbon Dioxide 16 L BUN 23 H Creatinine 1.81 H Calcium 8.8 Microbiology Microbiology Results: Microbiology 01/23/25 14:57 Ascites Fluid Gram Stain - Final 01/23/25 14:57 Ascites Fluid Anaerobic Culture - Preliminary No growth to date. 01/23/25 14:57 Ascites Fluid Body Fluid Culture - Final No growth after 2 days 01/23/25 12:49 Blood - Venous Blood Culture - Preliminary No growth after 48 hours. 01/23/25 12:30 Blood - Venous Blood Culture - Preliminary No growth after 48 hours. 01/23/25 16:55 Urine clean catch - Clean Catch Midstream Urine Culture - Final Assessment and Plan (1) Septic arthritis of lumbar spine: Status: Acute Plan Antibiotic coverage as per ID recommendations. Non compliant with IV Vanco. If she starts to show signs of neurological deterioration of legs, will need another MRI and surgical decompression and drainage. Procedures Date of Service Date of Service: 01/27/25
--- NOTE | 2025-01-27 17:57 | P.PNNP_ITS ---
Subjective Subjective Date of Service: 01/27/25 Interval history: ? septic arthritis of L-spine . Events noted. Serum creatinine better. All recent data reviewed Physical Exam 2 Vital Signs: Vital Signs: Last Vital Signs Temp 98 F 01/27/25 15:19 Pulse 87 01/27/25 15:19 Resp 18 01/27/25 15:19 BP 113/58 L 01/27/25 15:19 Pulse Ox 100 01/27/25 15:19 O2 Del Method Room Air 01/27/25 15:19 BMI result Body Mass Index 28.8 Const: General: no acute distress Orientation/consciousness: patient oriented x3 Eyes: EOM: EOMs intact bilaterally Neck: Neck: Yes supple Resp: Auscultation: diminished lung sounds Cardio: Rate: regular rate GI: Palpation (GI): Soft to palpation Neuro: General: patient oriented x3 Objective Data Labs 01/27/25 09:44 01/27/25 06:18 Labs: Laboratory Results - last 24 hr 01/27/25 01/27/25 01/27/25 06:18 09:44 10:58 Hgb 7.8 L Hct 22.9 L Sodium 133 L Potassium 3.3 Chloride 109 H Carbon Dioxide 16 L Anion Gap 11 L BUN 23 H Creatinine 1.81 H Estim Creat Clear Calc 39.2 Estimated GFR 30 Random Glucose 111 Calcium 8.8 Iron 84 TIBC 109 L % Saturation 77 H Unsat Iron Binding < 25 Vitamin B12 1517 H Folate 14.3 Random Vancomycin 12.5 L Blood Type A Positive Antibody Screen NEGATIVE Microbiology Microbiology Results: Microbiology 01/23/25 14:57 Ascites Fluid Gram Stain - Final 01/23/25 14:57 Ascites Fluid Anaerobic Culture - Preliminary No growth to date. 01/23/25 14:57 Ascites Fluid Body Fluid Culture - Final No growth after 2 days 01/23/25 12:49 Blood - Venous Blood Culture - Preliminary No growth after 48 hours. 01/23/25 12:30 Blood - Venous Blood Culture - Preliminary No growth after 48 hours. 01/23/25 16:55 Urine clean catch - Clean Catch Midstream Urine Culture - Final Procedures Date of Service Date of Service: 01/27/25 Assessment & Plan Assessment and plan (1) IVELISSE (acute kidney injury): Status: Acute Plan IVELISSE multifactorial Has underlying HRS 2 @ baseline Currently Urine Na < 20 Serum creatinine better No indication for renal replacement C/W rest of current management Labs AM. Shall closely F/U Progress Note: Quality Stroke Does the patient have a stroke diagnosis?: No
[2025-01-27] MEDS: diphenhydrAMINE HCL 25 MG CAPSULE PO (19:28)
[2025-01-27 19:42] VITALS: BP 117/62; PULSE 88; RESP 18; TEMP 37.2; O2SAT 97
[2025-01-27] MEDS: Melatonin 3 MG TABLET 6 MG PO (20:33)
[2025-01-28] VITALS (10 sets, daily range): BP systolic 105–119; BP diastolic 55–72; PULSE 83–101; RESP 12–20; TEMP 36.6–37.1; O2SAT 97–100
[2025-01-28] MEDS: HYDROmorphone HCl 0.5 MG/0.5 ML SYRINGE IVPUSH ×5 (02:18→18:52)
[2025-01-28] MEDS: Acetaminophen 325 MG TABLET 650 MG PO ×4 (03:29→21:42)
[2025-01-28] MEDS: oxyCODONE HCl Immed Release 5 MG TABLET PO ×4 (03:29→21:42)
[2025-01-28] MEDS: diphenhydrAMINE HCL 25 MG CAPSULE PO ×4 (03:29→21:42)
[2025-01-28] MEDS: Omeprazole 20 MG CAPSULE.DR PO (06:22)
[2025-01-28 06:56] LABS: Estimated Glomerular Filt Rate 32
[2025-01-28 07:00] LABS: Vancomycin Trough 18.6 mcg/mL (10.0-20.0)
[2025-01-28 07:09] LABS: Complement C3 50 mg/dL (83-193)
--- NOTE | 2025-01-28 07:17 | HE.PHANOTE ---
RE: VANCO DOSING Vanco order was restarted on 01/27/25, one dose of 750 mg was given on 01/27/25 @1142. Trough came back on 01/28/25 @0633 (ordered for @0900) as 18.6 mg/L. Renal function is improving and considering trough was drawn earlier than scheduled, dose is set at 500 mg q24h starting @1100 01/28/25. Next trough is scheduled for 01/29/25 @0900.
[2025-01-28] MEDS: Gabapentin 100 MG CAPSULE PO ×2 (07:35→21:45)
[2025-01-28] MEDS: Calcium Carbonate 750 MG TAB.CHEW PO ×2 (07:35→21:42)
[2025-01-28] MEDS: Lipase/Prot/Amylase 12/38/60K CAPSULE.DR 3 CAP PO ×3 (07:35→16:52)
[2025-01-28] MEDS: Lactulose 20 GM/30 ML SOLUTION 10 GM PO ×2 (07:35→21:45)
[2025-01-28] MEDS: 0.9 % Sodium Chloride Flush 3 ML SYRINGE IVFLUSH ×2 (07:39→15:35)
[2025-01-28] MEDS: Albumin Human 25 % 100 ML IV ×2 (10:34→15:34)
--- NOTE | 2025-01-28 12:43 | MHC.RECOVRN ---
Met with pt to follow up, provide support, and call [facility]. Pt in pain, scheduled for another paracentesis today. Called [facility], pt completed intake. Pt has follow up appt via telehealth on 02/11 at 2:00PM to complete medical evaluation with provider. Pt has follow up appt via telehealth on 02/18 at 2:00PM to complete clinical assessment and orientation to program. Pt denies questions or concerns for t/w.
[2025-01-28] MEDS: cefTRIAXone sodium 1 GM VIAL IVPUSH (12:46)
[2025-01-28] MEDS: vancomycin HCL 500 MG in 0.9 % Sodium Chloride 100 ML 110 MG IV (12:47)
[2025-01-28] MEDS: Lidocaine HCl 1 % MPF 5 ML VIAL SUBCUT (12:49)
--- NOTE | 2025-01-28 13:59 | HO.PM.IMPN ---
Subjective Subjective Date of Service: 01/28/25 Interval History: ascitis Septic arthritis of lumbar spine Review of Systems Still feels some abdominal tightness , no nausea or vomiting or fever Denies any back pain Physical Exam Vital Signs: Vital Signs: Last Vital Signs Temp 98.5 F 01/28/25 12:53 Pulse 95 01/28/25 12:53 Resp 18 01/28/25 12:53 BP 116/58 L 01/28/25 12:53 Pulse Ox 100 01/28/25 12:53 O2 Del Method Room Air 01/28/25 12:53 BMI result Body Mass Index 28.8 Appearance: Alert.? Oriented X3.? cvs: rrr, [id number] . res: clear to auscultation ,no rhonchii or wheezing GI- acitis,feels some tightness , ND; +BS ext pulses present , no cyanosis. neuro: axo3 , nonfocal. Objective Data Active Medications Acetaminophen (Acetaminophen 325 Mg Tablet) 650 mg PO Q6H PRN PRN Reason: Pain, Mild 1-3,fever,headache Last Admin: 01/28/25 09:30 Dose: 650 mg Documented By: RAFIQ Albuterol Sulfate (Albuterol Sulfate 90 Mcg 8 Gm Inhaler) 2 puff INHALE QID PRN PRN Reason: wheezing Lipase/Protease/Amylase (Lipase/Prot/Amylase 12/60k Capsule.Dr) 3 cap PO TIDWM [facility] Last Admin: 01/28/25 12:46 Dose: 3 cap Documented By: RAFIQ Buprenorphine/Naloxone (Buprenorphine/Naloxone 8/2 Mg Film) 1 film SUBLINGUAL BID [facility] Last Admin: 01/28/25 07:06 Dose: Not Given Documented By: RAFIQ Non-Admin Reason: Patient Refused Calcium Carbonate (Calcium Carbonate 750 Mg Tab.Chew) 750 mg PO Q4H PRN PRN Reason: Heartburn Last Admin: 01/28/25 07:35 Dose: 750 mg Documented By: RAFIQ Calcium Carbonate (Calcium Oyster Shell Elemental 500 Mg Tablet) 500 mg PO DAILY PRN PRN Reason: Heartburn Ceftriaxone Sodium (Ceftriaxone Sodium 1 Gm Vial) 1 gm IVPUSH Q24H [facility] Last Admin: 01/28/25 12:46 Dose: 1 gm Documented By: RAFIQ Diphenhydramine HCl (Diphenhydramine Hcl 25 Mg Capsule) 25 mg PO Q6H PRN PRN Reason: itchyness Last Admin: 01/28/25 09:30 Dose: 25 mg Documented By: RAFIQ Gabapentin (Gabapentin 100 Mg Capsule) 100 mg PO BID [facility] Last Admin: 01/28/25 07:35 Dose: 100 mg Documented By: RAFIQ Hydromorphone HCl (Hydromorphone Hcl 0.5 Mg/0.5 Ml Syringe) 0.5 mg IVPUSH Q4H PRN; Protocol PRN Reason: Breakthrough Pain Last Admin: 01/28/25 10:33 Dose: 0.5 mg Documented By: RAFIQ Vancomycin HCl 500 mg/ Sodium (Chloride) 110 mls @ 110 mls/hr IV Q24H [facility] Last Infusion: 01/28/25 13:47 Dose: Infused Documented By: RAFIQ Albumin Human (Kedbumin 25 %) 100 mls @ 100 mls/hr IV Q6H [facility] Stop: 01/28/25 17:29 Last Infusion: 01/28/25 11:45 Dose: Infused Documented By: RAFIQ Lactulose (Lactulose 20 Gm/30 Ml Solution) 10 gm PO BID [facility] Last Admin: 01/28/25 07:35 Dose: 10 gm Documented By: RAFIQ Magnesium Hydroxide (Milk Of Magnesia 30 Ml Oral.Susp) 30 ml PO DAILY PRN PRN Reason: Constipation Melatonin (Melatonin 3 Mg Tablet) 6 mg PO BEDTIME PRN PRN Reason: Insomnia Last Admin: 01/27/25 20:33 Dose: 6 mg Documented By: SIS Omeprazole (Omeprazole 20 Mg Capsule.) 20 mg PO DAILY@0630 [facility] Last Admin: 01/28/25 06:22 Dose: 20 mg Documented By: SIS Oxycodone HCl (Oxycodone Hcl Immed Release 5 Mg Tablet) 5 mg PO Q6H PRN PRN Reason: Pain, Moderate(Pain Scale 4-6) Last Admin: 01/28/25 09:30 Dose: 5 mg Documented By: RAFIQ Pharmacy Consult (Consult Rx Vancomycin Dosing) 1 each MISCELLANE DAILY PRN PRN Reason: Consult order Sodium Chloride (0.9 % Sodium Chloride Flush 3 Ml Syringe) 3 ml IVFLUSH QSHIFT [facility] Last Admin: 01/28/25 07:39 Dose: 3 ml Documented By: RAFIQ Labs 01/27/25 09:44 01/28/25 06:33 Labs: Laboratory Results - last 24 hr 01/26/25 01/28/25 05:50 06:33 Estim Creat Clear Calc 41.0 Estimated GFR 32 Vancomycin Trough 18.6 Complement C3 50 L Complement C4 9 L Microbiology Microbiology Results: Microbiology 01/23/25 14:57 Gram Stain - Final Ascites Fluid Anaerobic Culture - Final NO GROWTH AFTER 5 DAYS Body Fluid Culture - Final No growth after 2 days Assessment and Plan (1) Septic arthritis of lumbar spine: Status: Acute (2) IVELISSE (acute kidney injury): Status: Acute Plan 44-year-old female with history of hepatic cirrhosis with history of alcohol use disorder and hepatitis-C, or UD on Suboxone, chronic pancreatitis admitted for acute decompensation of hepatic cirrhosis and MRSA bacteremia Acute decompensation of hepatic cirrhosis with ascites, coagulopathy, and hyperbilirubinemia History of hepatitis-C and alcohol use disorder Total bili 4.3, direct bili 3.1, AST 119, ALT 67 s/p paracentesis in ed of about 2L Peritoneal fluid analysis-less likely sbp ,fluid culture prelim-negative plan: going for another paracentesis ( 01/26/25 -removed 5.5 liters ,01/28/25 removed 2.9 liters) Continue lactulose hold Lasix and spironolactone until clear by nephro ,has ivelisse Gastroenterology consult noted -patient will need paracentesis/albumin, nephro input for IVELISSE and diuretic use. Acute kidney injury-prerenal vs Hepator renal syndrome (HRS), Cr is slightly better Urine studies pending Albumin 25 gm q 6 x 4 Avoid nephrotoxins Low-sodium diet Follow renal function and electrolytes Nephrology following Acute non-anion gap metabolic acidosis, bicab is similar range r/t IVELISSE and liver failure continue close bmp monitering MRSA bacteremia dx 12/27 from paraspinal abscess drained 01/14 TTE at the time negative for endocarditis Had been on IV vancomycin but left against medical advice as she was recommended for SNF given history of IV drug abuse Blood cultures negative so far Echocardiogram TTE: seems fine mri Lspine :Septic arthritis of the left L3-L4 facet joint with associated joint effusion, which extends into the posterolateral epidural space, left neural foramen, as well as the paraspinous soft tissues as described above, with surrounding cellulitis. denies back pain ,has local mild erythema in lumbar area. ID consult-d/w mri results -vanco trough improving-restarted vanco ,continue ceftriaxone. neuro eval due to abnormal mri/recent paraspinal abscess/mrsa bacteremia ,moniter vanco trough . Alcohol use disorder Reports last use was 2 months ago Monitor on CIWA, initiate phenobarbital showed evidence of withdrawal arise Coagulopathy INR 2 Vit K 10 mg daily 2/3 days Chronic macrocytic anemia H/H baseline when compared with recent [facility] labs Vitamin B12 and folic acid level Polysubstance abuse/OUD--denying substance use but positive for opioid, fentanyl, barbitruate, benzo, along with methadone, suboxone Continue Suboxone Addiction medicine consult following Chronic thrombocytopenia Due to above DVT prophylaxis- SCPs Full code Quality Stroke Does the patient have a stroke diagnosis?: No VTE Prior VTE?: No VTE Risk Level:: Medical - moderate - high VTE Device Contraindication: N/A - Device Ordered VTE Drug Contraindication: Treatment Not Indicated
--- NOTE | 2025-01-28 17:51 | P.PNNP_ITS ---
Subjective Subjective Date of Service: 01/28/25 Interval history: Events noted. All recent data reviewed. Serum creatinine better Physical Exam 2 Vital Signs: Vital Signs: Last Vital Signs Temp 98.8 F 01/28/25 15:19 Pulse 91 01/28/25 15:19 Resp 14 01/28/25 15:19 BP 117/61 01/28/25 15:19 Pulse Ox 97 01/28/25 15:19 O2 Del Method Room Air 01/28/25 15:19 BMI result Body Mass Index 28.8 Const: General: no acute distress Orientation/consciousness: patient oriented x3 Eyes: EOM: EOMs intact bilaterally Resp: Auscultation: diminished lung sounds Cardio: Rate: regular rate GI: Palpation (GI): Soft to palpation Neuro: General: patient oriented x3 Objective Data Labs 01/27/25 09:44 01/28/25 06:33 Labs: Laboratory Results - last 24 hr 01/26/25 01/28/25 05:50 06:33 Creatinine 1.73 H Estim Creat Clear Calc 41.0 Estimated GFR 32 Vancomycin Trough 18.6 Complement C3 50 L Complement C4 9 L Microbiology Microbiology Results: Microbiology 01/23/25 12:49 Blood - Venous Blood Culture - Final No growth after 5 days. 01/23/25 12:30 Blood - Venous Blood Culture - Final No growth after 5 days. 01/23/25 14:57 Ascites Fluid Gram Stain - Final 01/23/25 14:57 Ascites Fluid Anaerobic Culture - Final NO GROWTH AFTER 5 DAYS 01/23/25 14:57 Ascites Fluid Body Fluid Culture - Final No growth after 2 days 01/23/25 16:55 Urine clean catch - Clean Catch Midstream Urine Culture - Final Procedures Date of Service Date of Service: 01/28/25 Assessment & Plan Assessment and plan (1) IVELISSE (acute kidney injury): Status: Acute Plan IVELISSE multifactorial Has underlying HRS 2 @ baseline Currently Urine Na < 20 Serum creatinine better Shall start low dose Spironolactone tomorrow No indication for renal replacement C/W rest of current management Labs AM. Shall closely F/U Progress Note: Quality Stroke Does the patient have a stroke diagnosis?: No
[2025-01-28] MEDS: Melatonin 3 MG TABLET 6 MG PO (21:42)
[2025-01-29] VITALS (8 sets, daily range): BP systolic 108–127; BP diastolic 58–76; PULSE 88–110; RESP 18; TEMP 36.3–36.9; O2SAT 99–100
--- NOTE | 2025-01-29 | ECG_ITS ---
Test Reason : chest tightness Blood Pressure : */* mmHG Vent. Rate : 98 BPM Atrial Rate : 98 BPM P-R Int : 180 ms QRS Dur : 94 ms QT Int : 356 ms P-R-T Axes : 29 27 25 degrees QTcB Int : 454 ms Poor data quality, interpretation may be adversely affected Normal sinus rhythm Normal ECG When compared with ECG of 23-Jan-2025 11:12, Nonspecific T wave abnormality has replaced inverted T waves in Inferior leads T wave amplitude has decreased in Lateral leads Referred By: George Barfield Electronically Signed By:
[2025-01-29] MEDS: HYDROmorphone HCl 0.5 MG/0.5 ML SYRINGE IVPUSH ×4 (03:30→20:05)
[2025-01-29] MEDS: 0.9 % Sodium Chloride Flush 3 ML SYRINGE IVFLUSH ×3 (03:31→20:06)
[2025-01-29] MEDS: Omeprazole 20 MG CAPSULE.DR PO (06:08)
[2025-01-29] MEDS: oxyCODONE HCl Immed Release 5 MG TABLET PO (06:09)
[2025-01-29 06:57] LABS: Creatinine Clr Calc Pharmacy 42.2; Estimated Glomerular Filt Rate 33
--- NOTE | 2025-01-29 08:06 | PC.NURSE ---
ok to dc ciwa scale per Dr Barfield
[2025-01-29] MEDS: Lactulose 20 GM/30 ML SOLUTION 10 GM PO ×2 (08:16→20:03)
[2025-01-29] MEDS: Lipase/Prot/Amylase 12/38/60K CAPSULE.DR 3 CAP PO ×3 (08:17→17:42)
[2025-01-29] MEDS: Gabapentin 100 MG CAPSULE PO ×2 (08:17→20:04)
[2025-01-29 08:35] LABS: Anion Gap 11 (12-20); Blood Urea Nitrogen 22 mg/dL (9-16); Calcium 9.6 mg/dL (8.4-10.2); Carbon Dioxide 17 mmol/L (22-29); Chloride 109 mmol/L (96-108); Glucose Random 98 mg/dL (60-115); Potassium 3.2 mmol/L (3.3-5.1); Sodium 134 mmol/L (135-145)
[2025-01-29] MEDS: oxyCODONE HCl Immed Release 5 MG TABLET 7.5 MG PO ×3 (08:55→22:45)
[2025-01-29 09:38] LABS: Vancomycin Random 18.1 mcg/mL (15-20)
--- NOTE | 2025-01-29 09:43 | HE.PHANOTE ---
RE [facility] Patients level came back this morning at 18.1. Patients indication is intra abd infection, level is within desired range. Will continue wuith current dose for now, 500 mg Q24H. Next draw will be tomorrow 01/30 @0900 to ensure safety vs efficacy as patients renal function is still unstable. Predicted AUC 458
--- NOTE | 2025-01-29 10:26 | MHC.CM.PN ---
Per MD rounds patient not medically cleared for dc and plan remains SNF for IV abx. CM met with patient yesterday again to discuss SNF placement. Patient understands that though local referrals were made, will likely need to go to [facility] d/t +utox. Referrals updated today. [facility] and [facility] following. No other bed offers at this time. CM will continue to follow.
[2025-01-29] MEDS: vancomycin HCL 500 MG in 0.9 % Sodium Chloride 100 ML 110 MG IV (10:54)
[2025-01-29] MEDS: cefTRIAXone sodium 1 GM VIAL IVPUSH (10:56)
--- NOTE | 2025-01-29 11:32 | HO.PM.IMPN ---
Subjective Subjective Date of Service: 01/29/25 Interval History: septic arthritis of L spine ivelisse, ascitis Review of Systems seems somewhat feeling better some abd soarness , no new symptoms Physical Exam Vital Signs: Vital Signs: Last Vital Signs Temp 98.1 F 01/29/25 07:53 Pulse 89 01/29/25 07:53 Resp 18 01/29/25 07:53 BP 115/60 01/29/25 07:53 Pulse Ox 100 01/29/25 07:53 O2 Del Method Room Air 01/29/25 07:53 BMI result Body Mass Index 28.8 Appearance: Alert.? Oriented X3.? cvs: [id number], [id number] . res: clear to auscultation ,no rhonchii or wheezing GI- acitis,abd tightness improving , ND; +BS ext pulses present , no cyanosis. neuro: axo3 , nonfocal. Objective Data Active Medications Acetaminophen (Acetaminophen 325 Mg Tablet) 650 mg PO Q6H PRN PRN Reason: Pain, Mild 1-3,fever,headache Last Admin: 01/28/25 21:42 Dose: 650 mg Documented By: SIS Albuterol Sulfate (Albuterol Sulfate 90 Mcg 8 Gm Inhaler) 2 puff INHALE QID PRN PRN Reason: wheezing Lipase/Protease/Amylase (Lipase/Prot/Amylase 12/38/60k Capsule.Dr) 3 cap PO TIDWM [facility] Last Admin: 01/29/25 10:56 Dose: 3 cap Documented By: CLARENCE Buprenorphine/Naloxone (Buprenorphine/Naloxone 8/2 Mg Film) 1 film SUBLINGUAL BID [facility] Last Admin: 01/29/25 08:17 Dose: Not Given Documented By: CLARENCE Non-Admin Reason: Patient Refused Calcium Carbonate (Calcium Carbonate 750 Mg Tab.Chew) 750 mg PO Q4H PRN PRN Reason: Heartburn Last Admin: 01/28/25 21:42 Dose: 750 mg Documented By: SIS Calcium Carbonate (Calcium Oyster Shell Elemental 500 Mg Tablet) 500 mg PO DAILY PRN PRN Reason: Heartburn Ceftriaxone Sodium (Ceftriaxone Sodium 1 Gm Vial) 1 gm IVPUSH Q24H [facility] Last Admin: 01/29/25 10:56 Dose: 1 gm Documented By: CLARENCE Diphenhydramine HCl (Diphenhydramine Hcl 25 Mg Capsule) 25 mg PO Q6H PRN PRN Reason: itchyness Last Admin: 01/28/25 21:42 Dose: 25 mg Documented By: SSI Gabapentin (Gabapentin 100 Mg Capsule) 100 mg PO BID [facility] Last Admin: 01/29/25 08:17 Dose: 100 mg Documented By: CLARENCE Hydromorphone HCl (Hydromorphone Hcl 0.5 Mg/0.5 Ml Syringe) 0.5 mg IVPUSH Q6H PRN; Protocol PRN Reason: Breakthrough Pain Vancomycin HCl 500 mg/ Sodium (Chloride) 110 mls @ 110 mls/hr IV Q24H [facility] Last Admin: 01/29/25 10:54 Dose: 110 mls/hr Documented By: CLARENCE Lactulose (Lactulose 20 Gm/30 Ml Solution) 10 gm PO BID [facility] Last Admin: 01/29/25 08:16 Dose: 10 gm Documented By: CLARENCE Magnesium Hydroxide (Milk Of Magnesia 30 Ml Oral.Susp) 30 ml PO DAILY PRN PRN Reason: Constipation Melatonin (Melatonin 3 Mg Tablet) 6 mg PO BEDTIME PRN PRN Reason: Insomnia Last Admin: 01/28/25 21:42 Dose: 6 mg Documented By: SIS Omeprazole (Omeprazole 20 Mg Capsule.) 20 mg PO DAILY@0630 [facility] Last Admin: 01/29/25 06:08 Dose: 20 mg Documented By: SIS Oxycodone HCl (Oxycodone Hcl Immed Release 5 Mg Tablet) 7.5 mg PO Q6H PRN PRN Reason: Pain, Moderate(Pain Scale 4-6) Last Admin: 01/29/25 08:55 Dose: 7.5 mg Documented By: CLARENCE Pharmacy Consult (Consult Rx Vancomycin Dosing) 1 each MISCELLANE DAILY PRN PRN Reason: Consult order Sodium Chloride (0.9 % Sodium Chloride Flush 3 Ml Syringe) 3 ml IVFLUSH QSHIFT [facility] Last Admin: 01/29/25 08:17 Dose: 3 ml Documented By: CLARENCE Spironolactone (Spironolactone 25 Mg Tablet) 12.5 mg PO BID@0900,1800 [facility]; Protocol Labs 01/27/25 09:44 01/29/25 05:45 Labs: Laboratory Results - last 24 hr 01/29/25 01/29/25 05:45 09:16 Hold Purple Top SEE NOTE Anion Gap 11 L Estim Creat Clear Calc 42.2 Estimated GFR 33 Random Glucose 98 Calcium 9.6 D Random Vancomycin 18.1 Microbiology Microbiology Results: Microbiology 01/23/25 12:49 Blood Culture - Final Blood - Venous No growth after 5 days. 01/23/25 12:30 Blood Culture - Final Blood - Venous No growth after 5 days. 01/23/25 14:57 Gram Stain - Final Ascites Fluid Anaerobic Culture - Final NO GROWTH AFTER 5 DAYS Body Fluid Culture - Final No growth after 2 days Assessment and Plan (1) Septic arthritis of lumbar spine: Status: Acute (2) IVELISSE (acute kidney injury): Status: Acute Plan 44-year-old female with history of hepatic cirrhosis with history of alcohol use disorder and hepatitis-C, or UD on Suboxone, chronic pancreatitis admitted for acute decompensation of hepatic cirrhosis and MRSA bacteremia Acute decompensation of hepatic cirrhosis with ascites in relation to chronic alcohol use . History of hepatitis-C and alcohol use disorder Total bili 4.3, direct bili 3.1, AST 119, ALT 67 Peritoneal fluid analysis-less likely sbp ,fluid culture prelim-negative plan: going for another paracentesis (s/p paracentesis in ed of about 2L, 01/26/25 -removed 5.5 liters ,01/28/25 removed 2.9 liters). Gastroenterology consult noted -patient will need paracentesis/albumin, nephro input for IVELISSE and diuretic use.Continue lactulose. h/h is 7.8/22.9 (remain in this range) ,avoid all NSAIDs and aspirin,emperic omeprazole.in addition got vitamin kx3 days for Coagulopathy. d/w nephrology :hold Lasix ,added sprinolactone 12.5 mg po bid moniter renal function and electrolytes . Acute kidney injury-prerenal vs Hepator renal syndrome (HRS), Cr is slightly better Urine studies pending Albumin 25 gm q 6 x 4 Avoid nephrotoxins Low-sodium diet Follow renal function and electrolytes Nephrology following- as above will give trial of spironolactone, monitor renal function electrolytes. Given 1 dose of potassium 10 mEq p.o. due to hypokalemia. Acute non-anion gap metabolic acidosis, bicab is similar range r/t IVELISSE and liver failure continue close bmp monitering MRSA bacteremia dx 12/27 from paraspinal abscess drained 01/14 TTE at the time negative for endocarditis Had been on IV vancomycin but left against medical advice as she was recommended for SNF given history of IV drug abuse Blood cultures negative so far Echocardiogram TTE: seems fine mri Lspine :Septic arthritis of the left L3-L4 facet joint with associated joint effusion, which extends into the posterolateral epidural space, left neural foramen, as well as the paraspinous soft tissues as described above, with surrounding cellulitis. denies back pain ,has local mild erythema in lumbar area. ID consult-d/w mri results -vanco trough improving-restarted vanco ,continue ceftriaxone. neuro eval due to abnormal mri/recent paraspinal abscess/mrsa bacteremia ,moniter vanco trough . patient denies any back pain or new symptoms plan is placing PICC line in anticipation of long-term antibiotic need for concern of septic arthritis of lumbar spine. Discussed with Nephrology -nephrology cleared for PICC line. Alcohol use disorder Reports last use was 2 months ago Monitor on CIWA, initiate phenobarbital showed evidence of withdrawal arise Coagulopathy INR 2 Vit K 10 mg daily Completed for 3 days. Chronic macrocytic anemia H/H baseline when compared with recent [facility] labs Vitamin B12 and folic acid level normal iron panel also fine Polysubstance abuse/OUD--denying substance use but positive for opioid, fentanyl, barbitruate, benzo, along with methadone, suboxone Continue Suboxone Addiction medicine consult following Chronic thrombocytopenia Due to above DVT prophylaxis- SCPs Full code Quality Stroke Does the patient have a stroke diagnosis?: No VTE Prior VTE?: No VTE Risk Level:: Medical - moderate - high VTE Device Contraindication: N/A - Device Ordered VTE Drug Contraindication: Treatment Not Indicated
--- NOTE | 2025-01-29 11:40 | P.CDIM_ITS ---
PROVIDER RESPONSE TEXT: To clarify, the appropriate diagnosis supported by the clinical indicators: Alcoholic Liver Failure QUERY TEXT: PHYSICIAN'S DOCUMENTATION REQUEST Date of Query: 01/27/2025 10:31 AM EDT Patient Name: DAREN GOLD Admit Date: 01/23/2025 Dear George Barfield MD, A review of the medical record indicates additional documentation may be needed. Please review below and update the documentation accordingly. Clinical Indicators: patient with acute decompensation of hepatic cirrhosis with ascites Hepatitis C and alcohol use disorder The following diagnoses or signs and symptoms were noted in the patient record: Total bili 4.3, direct bili 3.1, AST 119, ALT 67 s/p paracentesis in ed of about 2L Based on the above, could you clarify the appropriate diagnosis, if significant, that supports the ab ove abnormalities and additional evaluation, monitoring, and/or treatment rendered: Acute or subacute Liver Failure Acute and chronic Liver Failure Alcoholic Liver Failure Labs indicate a diagnosis of (please specify) Other (explain) Clinically unable to determine (explain) Thank you, Clair Londono RN Use of terms such as suspected, likely, concern for, or probable (associated with a specific diagnosi s that is being evaluated, monitored, or treated as if it exists) are acceptable and can be coded in the inpatient se tting, when documented at the time of discharge. Please use your independent medical judgment in providing your response. THIS QUERY IS PART OF THE PERMANENT MEDICAL RECORD
[2025-01-29] MEDS: Potassium Chloride ER 10 MEQ TABLET.ER PO (11:56)
[2025-01-29 13:01] LABS: Hematocrit 20.4 % (37.0-47.0); Hemoglobin 6.9 g/dl (12.0-16.0)
--- NOTE | 2025-01-29 13:47 | MHC.RECOVRN ---
Met with pt to check in and provide support. Pt reports she continues to experience pain and pressure in abdomen. Pt reports she is agreeable to STR placement, even in [place]. Denies other questions or concerns for t/w.
[2025-01-29] MEDS: guaiFENesin 200 MG/10 ML 10 ML LIQUID PO ×3 (14:30→22:44)
[2025-01-29 15:22] LABS: Troponin-I High Sensitivity 4.8 ng/L (<3.5-17.0)
[2025-01-29 16:12] LABS: Bacterial Vaginosis PCR POSITIVE (Negative); Candida Group PCR DETECTED (Not Detect); Candida glab krusei PCR NOT DETECTED (Not Detect); Trichomonas vaginalis PCR NOT DETECTED (Not Detect)
[2025-01-29 16:42] LABS: CT PCR NOT DETECTED (Not Detect.); NG PCR NOT DETECTED (Not Detect.)
--- NOTE | 2025-01-29 17:28 | PC.NURSE ---
PICC line attempted in right brachial vein, good blood return, wire advanced, unable to place picc. It would not pass. Dr Mo and RN informed.
[2025-01-29] MEDS: Pantoprazole Sodium 40 MG/10 ML VIAL IVPUSH (17:41)
[2025-01-29] MEDS: Spironolactone 25 MG TABLET 12.5 MG PO (17:42)
--- NOTE | 2025-01-29 19:07 | P.PNNP_ITS ---
Subjective Subjective Date of Service: 01/29/25 Interval history: Events noted. All recent data reviewed. Renal function improving Physical Exam 2 Vital Signs: Vital Signs: Last Vital Signs Temp 98.4 F 01/29/25 16:08 Pulse 89 01/29/25 16:08 Resp 18 01/29/25 16:08 BP 116/68 01/29/25 17:42 Pulse Ox 99 01/29/25 15:25 O2 Del Method Room Air 01/29/25 07:53 BMI result Body Mass Index 28.8 Const: General: no acute distress Orientation/consciousness: patient oriented x3 Eyes: EOM: EOMs intact bilaterally Neck: Neck: Yes supple Resp: Auscultation: diminished lung sounds GI: Palpation (GI): Soft to palpation Neuro: General: patient oriented x3 and moves all extremities Objective Data Labs 01/29/25 12:43 01/29/25 05:45 Labs: Laboratory Results - last 24 hr 01/27/25 01/29/25 01/29/25 09:44 05:45 09:16 Hgb Hct Hold Purple Top SEE NOTE Sodium 134 L Potassium 3.2 L Chloride 109 H Carbon Dioxide 17 L Anion Gap 11 L BUN 22 H Creatinine 1.68 H Estim Creat Clear Calc 42.2 Estimated GFR 33 Random Glucose 98 Calcium 9.6 D Troponin I High Sens Random Vancomycin 18.1 Chlam trachomat DNA PCR N.gonorrhoeae DNA (PCR) T. vaginalis (PCR) Bact vaginosis (PCR) C. krusei/glabrata (PCR) Nandini group (PCR) Blood Type A Positive Antibody Screen NEGATIVE Crossmatch See Detail 01/29/25 01/29/25 01/29/25 11:40 12:43 14:47 Hgb 6.9 L* Hct 20.4 L* Hold Purple Top Sodium Potassium Chloride Carbon Dioxide Anion Gap BUN Creatinine Estim Creat Clear Calc Estimated GFR Random Glucose Calcium Troponin I High Sens 4.8 Random Vancomycin Chlam trachomat DNA PCR NOT DETECTED N.gonorrhoeae DNA (PCR) NOT DETECTED T. vaginalis (PCR) NOT DETECTED Bact vaginosis (PCR) POSITIVE A C. krusei/glabrata (PCR) NOT DETECTED Nandini group (PCR) DETECTED A Blood Type Antibody Screen Crossmatch Microbiology Microbiology Results: Microbiology 01/23/25 12:49 Blood - Venous Blood Culture - Final No growth after 5 days. 01/23/25 12:30 Blood - Venous Blood Culture - Final No growth after 5 days. 01/23/25 14:57 Ascites Fluid Gram Stain - Final 01/23/25 14:57 Ascites Fluid Anaerobic Culture - Final NO GROWTH AFTER 5 DAYS 01/23/25 14:57 Ascites Fluid Body Fluid Culture - Final No growth after 2 days 01/23/25 16:55 Urine clean catch - Clean Catch Midstream Urine Culture - Final Procedures Date of Service Date of Service: 01/29/25 Assessment & Plan Assessment and plan (1) IVELISSE (acute kidney injury): Status: Acute Plan IVELISSE multifactorial Has underlying HRS 2 @ baseline Currently Urine Na < 20 Serum creatinine better Shall start low dose Spironolactone today No indication for renal replacement C/W rest of current management OK to have PICC line Labs AM. Shall closely F/U Progress Note: Quality Stroke Does the patient have a stroke diagnosis?: No
[2025-01-29] MEDS: Acetaminophen 325 MG TABLET 650 MG PO (20:15)
[2025-01-29 20:20] LABS: Hemoglobin 7.8 g/dl (12.0-16.0); Mean Corpuscular HGB Conc 33.9 g/dl (31.0-35.0); Mean Corpuscular Hemoglobin 33.5 pg (27.0-33.0); Mean Corpuscular Volume 98.7 fL (80.0-98.0); Mean Platelet Volume 11.5 fL (9.4-12.3); Red Blood Count 2.33 X10*6/uL (4.20-5.50); White Blood Count 2.9 X10*3/uL (4.8-10.8)
[2025-01-29 20:22] LABS: Platelet Count 52 X10*3/uL (160-400)
[2025-01-30 04:00] VITALS: BP 109/62; PULSE 80; RESP 16; TEMP 36.4; O2SAT 97
[2025-01-30] MEDS: HYDROmorphone HCl 0.5 MG/0.5 ML SYRINGE IVPUSH ×4 (04:49→23:38)
[2025-01-30] MEDS: Pantoprazole Sodium 40 MG/10 ML VIAL IVPUSH ×2 (05:40→17:17)
[2025-01-30] MEDS: oxyCODONE HCl Immed Release 5 MG TABLET 7.5 MG PO ×2 (06:16→18:41)
[2025-01-30 06:17] LABS: Estimated Glomerular Filt Rate 37
[2025-01-30 07:34] VITALS: BP 114/56; PULSE 78; RESP 18; TEMP 36.9; O2SAT 99
[2025-01-30 07:55] LABS: Potassium 3.3 mmol/L (3.3-5.1)
[2025-01-30] MEDS: 0.9 % Sodium Chloride Flush 3 ML SYRINGE IVFLUSH ×3 (08:20→21:13)
[2025-01-30] MEDS: Lactulose 20 GM/30 ML SOLUTION 10 GM PO ×2 (08:20→21:12)
[2025-01-30] MEDS: Gabapentin 100 MG CAPSULE PO ×2 (08:21→21:12)
[2025-01-30] MEDS: Lipase/Prot/Amylase 12/38/60K CAPSULE.DR 3 CAP PO ×3 (08:21→17:17)
[2025-01-30] MEDS: Spironolactone 25 MG TABLET 12.5 MG PO (08:21)
[2025-01-30 09:41] LABS: Vancomycin Random 15.2 mcg/mL (15-20)
[2025-01-30] MEDS: vancomycin HCL 500 MG in 0.9 % Sodium Chloride 100 ML 110 MG IV (10:55)
[2025-01-30] MEDS: guaiFENesin 200 MG/10 ML 10 ML LIQUID PO ×3 (10:55→21:12)
--- NOTE | 2025-01-30 11:27 | HO.PM.IMPN ---
Subjective Subjective Date of Service: 01/30/25 Interval History: ivelisse ,L spine septic arathritis Review of Systems feeling somewhat improving no fevers denies any declan bleeding Review of Systems: Yes all other systems are reviewed and are negative Physical Exam Vital Signs: Vital Signs: Last Vital Signs Temp 98.5 F 01/30/25 07:34 Pulse 78 01/30/25 07:34 Resp 18 01/30/25 07:34 BP 114/56 L 01/30/25 07:34 Pulse Ox 99 01/30/25 07:34 O2 Del Method Room Air 01/30/25 07:34 BMI result Body Mass Index 28.8 Appearance: Alert.? Oriented X3.? cvs: rrr, [id number] . res: clear to auscultation ,no rhonchii or wheezing GI- acitis,abd tightness improving , ND; +BS ext pulses present , no cyanosis. neuro: axo3 , nonfocal. Objective Data Active Medications Acetaminophen (Acetaminophen 325 Mg Tablet) 650 mg PO Q6H PRN PRN Reason: Pain, Mild 1-3,fever,headache Last Admin: 01/29/25 20:15 Dose: 650 mg Documented By: ESPERANZA Albuterol Sulfate (Albuterol Sulfate 90 Mcg 8 Gm Inhaler) 2 puff INHALE QID PRN PRN Reason: wheezing Lipase/Protease/Amylase (Lipase/Prot/Amylase 12/38/60k Capsule.) 3 cap PO TIDWM [facility] Last Admin: 01/30/25 08:21 Dose: 3 cap Documented By: CARROL Buprenorphine/Naloxone (Buprenorphine/Naloxone 8/2 Mg Film) 1 film SUBLINGUAL BID [facility] Last Admin: 01/30/25 08:12 Dose: Not Given Documented By: CARROL Non-Admin Reason: Patient Refused Calcium Carbonate (Calcium Carbonate 750 Mg Tab.Chew) 750 mg PO Q4H PRN PRN Reason: Heartburn Last Admin: 01/28/25 21:42 Dose: 750 mg Documented By: SIS Calcium Carbonate (Calcium Oyster Shell Elemental 500 Mg Tablet) 500 mg PO DAILY PRN PRN Reason: Heartburn Ceftriaxone Sodium (Ceftriaxone Sodium 1 Gm Vial) 1 gm IVPUSH Q24H [facility] Last Admin: 01/29/25 10:56 Dose: 1 gm Documented By: CLARENCE Diphenhydramine HCl (Diphenhydramine Hcl 25 Mg Capsule) 25 mg PO Q6H PRN PRN Reason: itchyness Last Admin: 01/28/25 21:42 Dose: 25 mg Documented By: SIS Gabapentin (Gabapentin 100 Mg Capsule) 100 mg PO BID [facility] Last Admin: 01/30/25 08:21 Dose: 100 mg Documented By: CARROL Guaifenesin (Guaifenesin 200 Mg/10 Ml 10 Ml Liquid) 10 ml PO Q4H [facility] Last Admin: 01/30/25 10:55 Dose: 10 ml Documented By: CARROL Hydromorphone HCl (Hydromorphone Hcl 0.5 Mg/0.5 Ml Syringe) 0.5 mg IVPUSH Q6H PRN; Protocol PRN Reason: Breakthrough Pain Last Admin: 01/30/25 10:55 Dose: 0.5 mg Documented By: CARROL Vancomycin HCl 500 mg/ Sodium (Chloride) 110 mls @ 110 mls/hr IV Q24H [facility] Last Admin: 01/30/25 10:55 Dose: 110 mls/hr Documented By: CARROL Lactulose (Lactulose 20 Gm/30 Ml Solution) 10 gm PO BID [facility] Last Admin: 01/30/25 08:20 Dose: 10 gm Documented By: CARROL Magnesium Hydroxide (Milk Of Magnesia 30 Ml Oral.Susp) 30 ml PO DAILY PRN PRN Reason: Constipation Melatonin (Melatonin 3 Mg Tablet) 6 mg PO BEDTIME PRN PRN Reason: Insomnia Last Admin: 01/28/25 21:42 Dose: 6 mg Documented By: SIS Omeprazole (Omeprazole 20 Mg Capsule.) 20 mg PO DAILY@0630 [facility] Last Admin: 01/29/25 06:08 Dose: 20 mg Documented By: SIS Oxycodone HCl (Oxycodone Hcl Immed Release 5 Mg Tablet) 7.5 mg PO Q6H PRN PRN Reason: Pain, Moderate(Pain Scale 4-6) Last Admin: 01/30/25 06:16 Dose: 7.5 mg Documented By: ESPERANZA Pantoprazole Sodium (Pantoprazole Sodium 40 Mg/10 Ml Vial) 40 mg IVPUSH BID@0630,1630 [facility] Last Admin: 01/30/25 05:40 Dose: 40 mg Documented By: ESPERANZA Pharmacy Consult (Consult Rx Vancomycin Dosing) 1 each MISCELLANE DAILY PRN PRN Reason: Consult order Sodium Chloride (0.9 % Sodium Chloride Flush 3 Ml Syringe) 3 ml IVFLUSH QSHIFT [facility] Last Admin: 01/30/25 08:20 Dose: 3 ml Documented By: CARROL Spironolactone (Spironolactone 25 Mg Tablet) 12.5 mg PO BID@0900,1800 [facility]; Protocol Last Admin: 01/30/25 08:21 Dose: 12.5 mg Documented By: CARROL Labs 01/29/25 19:30 01/30/25 05:39 Labs: Laboratory Results - last 24 hr 01/27/25 01/29/25 01/29/25 09:44 11:40 19:30 MCV 98.7 H MCH 33.5 H MCHC 33.9 RDW 18.0 H Plt Count 52 L MPV 11.5 Absolute Nucleated RBC 0.000 Nucleated RBC % (auto) 0.0 Hold Purple Top Estim Creat Clear Calc Estimated GFR Random Vancomycin Chlam trachomat DNA PCR NOT DETECTED N.gonorrhoeae DNA (PCR) NOT DETECTED T. vaginalis (PCR) NOT DETECTED Bact vaginosis (PCR) POSITIVE A C. krusei/glabrata (PCR) NOT DETECTED Nandini group (PCR) DETECTED A Blood Type A Positive Antibody Screen NEGATIVE Crossmatch See Detail 01/30/25 01/30/25 05:39 09:15 MCV MCH MCHC RDW Plt Count MPV Absolute Nucleated RBC Nucleated RBC % (auto) Hold Purple Top SEE NOTE Estim Creat Clear Calc 47.0 Estimated GFR 37 Random Vancomycin 15.2 Chlam trachomat DNA PCR N.gonorrhoeae DNA (PCR) T. vaginalis (PCR) Bact vaginosis (PCR) C. krusei/glabrata (PCR) Nandini group (PCR) Blood Type Antibody Screen Crossmatch Assessment and Plan (1) Septic arthritis of lumbar spine: Status: Acute (2) IVELISSE (acute kidney injury): Status: Acute Plan 44-year-old female with history of hepatic cirrhosis with history of alcohol use disorder and hepatitis-C, or UD on Suboxone, chronic pancreatitis admitted for acute decompensation of hepatic cirrhosis and MRSA bacteremia Acute decompensation of hepatic cirrhosis with ascites in relation to chronic alcohol use . History of hepatitis-C and alcohol use disorder Total bili 4.3, direct bili 3.1, AST 119, ALT 67 Peritoneal fluid analysis-less likely sbp ,fluid culture prelim-negative plan: going for another paracentesis (s/p paracentesis in ed of about 2L, 01/26/25 -removed 5.5 liters ,01/28/25 removed 2.9 liters). Gastroenterology consult noted -patient will need paracentesis/albumin, nephro input for IVELISSE and diuretic use.Continue lactulose. h/h is 7.8/22.9 (remain in this range) ,avoid all NSAIDs and aspirin,emperic omeprazole.in addition got vitamin kx3 days for Coagulopathy. d/w nephrology :hold Lasix ,added sprinolactone 12.5 mg po bid moniter renal function and electrolytes . Acute kidney injury-prerenal vs Hepator renal syndrome (HRS), Cr is slightly better urine -trace protein,urine culture <10,000k cfu/ml s/p Albumin plan: Nephrology following- as above will give trial of spironolactone, monitor renal function electrolytes. hypokalemia-replted and resolved. hyponatremia also improving Acute non-anion gap metabolic acidosis, bicab is similar range r/t IVELISSE and liver failure bicard and cr improving MRSA bacteremia dx 12/27 from paraspinal abscess drained 01/14 TTE at the time negative for endocarditis Had been on IV vancomycin but left against medical advice as she was recommended for SNF given history of IV drug abuse Blood cultures negative so far Echocardiogram TTE: seems fine mri Lspine :Septic arthritis of the left L3-L4 facet joint with associated joint effusion, which extends into the posterolateral epidural space, left neural foramen, as well as the paraspinous soft tissues as described above, with surrounding cellulitis. denies back pain ,has local mild erythema in lumbar area. ID consult-d/w mri results -vanco trough improving-restarted vanco ,continue ceftriaxone. neuro eval due to abnormal mri/recent paraspinal abscess/mrsa bacteremia ,moniter vanco trough . patient denies any back pain or new symptoms plan is placing PICC line in anticipation of long-term antibiotic need for concern of septic arthritis of lumbar spine-patient failed picc line -might need picc line/floro on saturday. Discussed with Nephrology -nephrology cleared for PICC line. chest pain yesterday-resolved ekg similat , troponinsx1 negative. Alcohol use disorder Reports last use was 2 months ago Monitor on CIWA, initiate phenobarbital showed evidence of withdrawal arise Coagulopathy INR 2 Vit K 10 mg daily Completed for 3 days. Chronic macrocytic anemia h/h trending down for which recieved 1 prbc (01/29/25) -7.8/-seems appropriate response . ppi ,Vitamin B12 and folic acid level normal,iron panel also fine d/w Gi dr martinez -moniter h/h ,ppi . Polysubstance abuse/OUD--denying substance use but positive for opioid, fentanyl, barbitruate, benzo, along with methadone, suboxone Continue Suboxone Addiction medicine consult following Chronic thrombocytopenia Due to above DVT prophylaxis- SCPs Full code. patient was updated regarding above in detail /also her mother was updated also.they understands and in agreement with above plan. Quality Stroke Does the patient have a stroke diagnosis?: No VTE Prior VTE?: No VTE Risk Level:: Medical - moderate - high VTE Device Contraindication: N/A - Device Ordered VTE Drug Contraindication: Treatment Not Indicated
[2025-01-30] MEDS: cefTRIAXone sodium 1 GM VIAL IVPUSH (12:12)
[2025-01-30 15:08] VITALS: BP 105/57; PULSE 87; RESP 18; TEMP 36.6; O2SAT 98
[2025-01-30] MEDS: Spironolactone 25 MG TABLET PO (17:17)
[2025-01-30] MEDS: Calcium Carbonate 750 MG TAB.CHEW PO ×2 (18:42→23:39)
[2025-01-30 19:21] VITALS: BP 120/61; PULSE 96; RESP 18; TEMP 36.7; O2SAT 100
[2025-01-30 19:56] VITALS: BP 182/80; PULSE 87; RESP 18; TEMP 36.4; O2SAT 92
[2025-01-30] MEDS: diphenhydrAMINE HCL 25 MG CAPSULE PO (21:12)
[2025-01-30] MEDS: Melatonin 3 MG TABLET 6 MG PO (23:39)
[2025-01-31 03:13] VITALS: BP 123/62; PULSE 86; RESP 18; TEMP 36; O2SAT 97
[2025-01-31] MEDS: guaiFENesin 200 MG/10 ML 10 ML LIQUID PO ×4 (05:51→21:52)
[2025-01-31] MEDS: Pantoprazole Sodium 40 MG/10 ML VIAL IVPUSH ×2 (05:51→17:56)
[2025-01-31] MEDS: HYDROmorphone HCl 0.5 MG/0.5 ML SYRINGE IVPUSH ×3 (05:52→17:57)
[2025-01-31 06:56] LABS: Creatinine Clr Calc Pharmacy 56.3; Estimated Glomerular Filt Rate 46
[2025-01-31 07:43] LABS: Anion Gap 11 (12-20); Blood Urea Nitrogen 16 mg/dL (9-16); Calcium 9.5 mg/dL (8.4-10.2); Carbon Dioxide 16 mmol/L (22-29); Chloride 111 mmol/L (96-108); Glucose Random 102 mg/dL (60-115); Potassium 3.5 mmol/L (3.3-5.1); Sodium 134 mmol/L (135-145)
[2025-01-31 07:50] VITALS: BP 115/61; PULSE 86; RESP 12; TEMP 36.3; O2SAT 99
[2025-01-31] MEDS: Milk of Magnesia 30 ML ORAL.SUSP PO (07:54)
[2025-01-31] MEDS: Lipase/Prot/Amylase 12/38/60K CAPSULE.DR 3 CAP PO ×3 (07:55→17:59)
[2025-01-31] MEDS: oxyCODONE HCl Immed Release 5 MG TABLET 7.5 MG PO ×3 (07:55→20:32)
[2025-01-31] MEDS: 0.9 % Sodium Chloride Flush 3 ML SYRINGE IVFLUSH ×2 (07:57→17:56)
[2025-01-31] MEDS: metroNIDAZOLE 500 MG TABLET PO ×2 (09:27→20:30)
[2025-01-31] MEDS: Fluconazole 150 MG TABLET PO (09:27)
[2025-01-31] MEDS: Docusate Sodium 100 MG CAPSULE PO ×2 (09:27→20:30)
[2025-01-31] MEDS: Gabapentin 100 MG CAPSULE PO ×2 (09:28→20:30)
[2025-01-31] MEDS: Lactulose 20 GM/30 ML SOLUTION 30 GM PO ×2 (09:28→20:31)
[2025-01-31] MEDS: Spironolactone 25 MG TABLET PO (09:28)
[2025-01-31 09:57] LABS: Vancomycin Random 13.8 mcg/mL (15-20)
[2025-01-31 10:02] LABS: Hematocrit 23.7 % (37.0-47.0); Hemoglobin 7.8 g/dl (12.0-16.0)
--- NOTE | 2025-01-31 10:12 | HE.PHANOTE ---
RE: rosana Changed dose to 750mg Q24H with predicted trough of 16.9 mg/L, predicted AUC of 522 mg/L. Next level to be drawn 02/01 @0900
--- NOTE | 2025-01-31 10:41 | PC.NURSE ---
Telemetry discontinued as per Dr Barfield
--- NOTE | 2025-01-31 11:28 | P.PNIM_ITS ---
Subjective Subjective Date of Service: 01/31/25 Interval History: ivelisse ,L spine septic arathritis Review of Systems no fevers ,no abd pain mild ascitis Physical Exam 2 Vital Signs: Vital Signs: Last Vital Signs Temp 97.4 F 01/31/25 07:50 Pulse 86 01/31/25 07:50 Resp 12 01/31/25 07:50 BP 115/61 01/31/25 07:50 Pulse Ox 99 01/31/25 07:50 O2 Del Method Room Air 01/31/25 07:50 O2 Flow Rate 2 01/30/25 19:56 BMI result Body Mass Index 28.8 Appearance: Alert.? Oriented X3.? cvs: [id number], [id number] . res: clear to auscultation ,no rhonchii or wheezing GI- acitis,abd tightness improving , ND; +BS ext pulses present , no cyanosis. neuro: axo3 , nonfocal. Objective Data Active Medications Acetaminophen (Acetaminophen 325 Mg Tablet) 650 mg PO Q6H PRN PRN Reason: Pain, Mild 1-3,fever,headache Last Admin: 01/29/25 20:15 Dose: 650 mg Documented By: ESPERANZA Albuterol Sulfate (Albuterol Sulfate 90 Mcg 8 Gm Inhaler) 2 puff INHALE QID PRN PRN Reason: wheezing Lipase/Protease/Amylase (Lipase/Prot/Amylase 12/38/60k Capsule.Dr) 3 cap PO TIDWM [facility] Last Admin: 01/31/25 07:55 Dose: 3 cap Documented By: CARROL Buprenorphine/Naloxone (Buprenorphine/Naloxone 8/2 Mg Film) 1 film SUBLINGUAL BID [facility] Last Admin: 01/31/25 09:12 Dose: Not Given Documented By: CARROL Non-Admin Reason: Patient Refused Calcium Carbonate (Calcium Carbonate 750 Mg Tab.Chew) 750 mg PO Q4H PRN PRN Reason: Heartburn Last Admin: 01/30/25 23:39 Dose: 750 mg Documented By: PENG Calcium Carbonate (Calcium Oyster Shell Elemental 500 Mg Tablet) 500 mg PO DAILY PRN PRN Reason: Heartburn Ceftriaxone Sodium (Ceftriaxone Sodium 1 Gm Vial) 1 gm IVPUSH Q24H [facility] Last Admin: 01/30/25 12:12 Dose: 1 gm Documented By: CARROL Diphenhydramine HCl (Diphenhydramine Hcl 25 Mg Capsule) 25 mg PO Q6H PRN PRN Reason: itchyness Last Admin: 01/30/25 21:12 Dose: 25 mg Documented By: PENG Docusate Sodium (Docusate Sodium 100 Mg Capsule) 100 mg PO BID [facility] Last Admin: 01/31/25 09:27 Dose: 100 mg Documented By: CARROL Gabapentin (Gabapentin 100 Mg Capsule) 100 mg PO BID [facility] Last Admin: 01/31/25 09:28 Dose: 100 mg Documented By: CARROL Guaifenesin (Guaifenesin 200 Mg/10 Ml 10 Ml Liquid) 10 ml PO Q4H [facility] Last Admin: 01/31/25 05:51 Dose: 10 ml Documented By: PEGN Hydromorphone HCl (Hydromorphone Hcl 0.5 Mg/0.5 Ml Syringe) 0.5 mg IVPUSH Q6H PRN; Protocol PRN Reason: Breakthrough Pain Last Admin: 01/31/25 05:52 Dose: 0.5 mg Documented By: PENG Vancomycin HCl 750 mg/ Sodium (Chloride) 265 mls @ 265 mls/hr IV Q24H [facility] Lactulose (Lactulose 20 Gm/30 Ml Solution) 30 gm PO BID [facility] Last Admin: 01/31/25 09:28 Dose: 30 gm Documented By: CARROL Magnesium Hydroxide (Milk Of Magnesia 30 Ml Oral.Susp) 30 ml PO DAILY PRN PRN Reason: Constipation Last Admin: 01/31/25 07:54 Dose: 30 ml Documented By: CARROL Melatonin (Melatonin 3 Mg Tablet) 6 mg PO BEDTIME PRN PRN Reason: Insomnia Last Admin: 01/30/25 23:39 Dose: 6 mg Documented By: PENG Metronidazole (Metronidazole 500 Mg Tablet) 500 mg PO BID [facility] Last Admin: 01/31/25 09:27 Dose: 500 mg Documented By: CARROL Omeprazole (Omeprazole 20 Mg Capsule.) 20 mg PO DAILY@0630 [facility] Last Admin: 01/29/25 06:08 Dose: 20 mg Documented By: SIS Oxycodone HCl (Oxycodone Hcl Immed Release 5 Mg Tablet) 7.5 mg PO Q6H PRN PRN Reason: Pain, Moderate(Pain Scale 4-6) Last Admin: 01/31/25 07:55 Dose: 7.5 mg Documented By: CARROL Pantoprazole Sodium (Pantoprazole Sodium 40 Mg/10 Ml Vial) 40 mg IVPUSH BID@0630,1630 [facility] Last Admin: 01/31/25 05:51 Dose: 40 mg Documented By: PENG Pharmacy Consult (Consult Rx Vancomycin Dosing) 1 each MISCELLANE DAILY PRN PRN Reason: Consult order Sodium Chloride (0.9 % Sodium Chloride Flush 3 Ml Syringe) 3 ml IVFLUSH QSHIFT [facility] Last Admin: 01/31/25 07:57 Dose: 3 ml Documented By: CARROL Spironolactone (Spironolactone 25 Mg Tablet) 50 mg PO BID@0900,1800 [facility]; Protocol Labs 01/31/25 09:07 01/31/25 05:53 Labs: Laboratory Results - last 24 hr 01/31/25 01/31/25 05:53 09:07 Hold Purple Top SEE NOTE Anion Gap 11 L Estim Creat Clear Calc 56.3 Estimated GFR 46 Random Glucose 102 Calcium 9.5 Random Vancomycin 13.8 L Assessment and Plan (1) Abdominal ascites: Status: Acute (2) Septic arthritis of lumbar spine: Status: Acute Plan 44-year-old female with history of hepatic cirrhosis with history of alcohol use disorder and hepatitis-C, or UD on Suboxone, chronic pancreatitis admitted for acute decompensation of hepatic cirrhosis and MRSA bacteremia Acute decompensation of hepatic cirrhosis with ascites in relation to chronic alcohol use . History of hepatitis-C and alcohol use disorder Total bili 4.3, direct bili 3.1, AST 119, ALT 67 Peritoneal fluid analysis-less likely sbp ,fluid culture prelim-negative plan: going for another paracentesis (s/p paracentesis in ed of about 2L, 01/26/25 - removed 5.5 liters ,01/28/25 removed 2.9 liters). Gastroenterology consult noted -patient will need paracentesis/albumin, nephro input for IVELISSE and diuretic use.Continue lactulose. h/h is 7.8/22.9 (remain in this range) ,avoid all NSAIDs and aspirin,emperic omeprazole.in addition got vitamin kx3 days for Coagulopathy. d/w nephrology :hold Lasix ,added sprinolactone 12.5 mg po bid moniter renal function and electrolytes . Acute kidney injury-prerenal vs Hepator renal syndrome (HRS), Cr is slightly better urine -trace protein,urine culture <10,000k cfu/ml s/p Albumin plan: Nephrology following- ivelisse improving ,adjusted spironolactone, monitor renal function electrolytes. hypokalemia-replted and resolved. hyponatremia also improving Acute non-anion gap metabolic acidosis, bicab is similar range r/t IVELISSE and liver failure bicard and cr improving MRSA bacteremia dx 12/27 from paraspinal abscess drained 01/14 TTE at the time negative for endocarditis Had been on IV vancomycin but left against medical advice as she was recommended for SNF given history of IV drug abuse Blood cultures negative so far Echocardiogram TTE: seems fine mri Lspine :Septic arthritis of the left L3-L4 facet joint with associated joint effusion, which extends into the posterolateral epidural space, left neural foramen, as well as the paraspinous soft tissues as described above, with surrounding cellulitis. denies back pain ,has local mild erythema in lumbar area. ID consult-d/w mri results -vanco trough improving-restarted vanco ,continue ceftriaxone. neuro eval due to abnormal mri/recent paraspinal abscess/mrsa bacteremia ,moniter vanco trough . patient denies any back pain or new symptoms plan is placing PICC line in anticipation of long-term antibiotic need for concern of septic arthritis of lumbar spine-patient failed picc line -might need picc line/floro on saturday. Discussed with Nephrology -nephrology cleared for PICC line. chest pain yesterday-resolved ekg similat , troponinsx1 negative. Alcohol use disorder Reports last use was 2 months ago Monitor on CIWA, initiate phenobarbital showed evidence of withdrawal arise Coagulopathy INR 2 Vit K 10 mg daily Completed for 3 days. Chronic macrocytic anemia h/h trending down for which recieved 1 prbc (01/29/25) -7.8/-seems appropriate response . ppi ,Vitamin B12 and folic acid level normal,iron panel also fine d/w Gi dr martinez -moniter h/h ,ppi . Polysubstance abuse/OUD--denying substance use but positive for opioid, fentanyl, barbitruate, benzo, along with methadone, suboxone Continue Suboxone Addiction medicine consult following Chronic thrombocytopenia Due to above DVT prophylaxis- SCPs Full code. patient was updated regarding above in detail /also her mother was updated also.they understands and in agreement with above plan. Quality Stroke Does the patient have a stroke diagnosis?: No VTE Prior VTE?: No VTE Risk Level:: Medical - moderate - high VTE Device Contraindication: N/A - Device Ordered VTE Drug Contraindication: Treatment Not Indicated
[2025-01-31] MEDS: vancomycin HCL 750 MG in 0.9 % Sodium Chloride 250 ML 265 MG IV (12:00)
[2025-01-31] MEDS: cefTRIAXone sodium 1 GM VIAL IVPUSH (12:06)
[2025-01-31 15:08] VITALS: BP 123/68; PULSE 87; RESP 18; TEMP 36.9; O2SAT 100
[2025-01-31] MEDS: Spironolactone 25 MG TABLET 50 MG PO (17:59)
[2025-01-31] MEDS: Calcium Carbonate 750 MG TAB.CHEW PO (18:28)
[2025-01-31 19:05] VITALS: BP 111/65; PULSE 84; RESP 18; TEMP 36.9; O2SAT 100
[2025-01-31] MEDS: Melatonin 3 MG TABLET 6 MG PO (20:37)
[2025-01-31] MEDS: diphenhydrAMINE HCL 25 MG CAPSULE PO (20:37)
[2025-02-01] VITALS (8 sets, daily range): BP systolic 101–125; BP diastolic 56–78; PULSE 78–106; RESP 15–18; TEMP 36.6–36.9; O2SAT 97–100
[2025-02-01] MEDS: HYDROmorphone HCl 0.5 MG/0.5 ML SYRINGE IVPUSH ×4 (00:03→18:16)
[2025-02-01] MEDS: Calcium Carbonate 750 MG TAB.CHEW PO ×3 (00:07→17:22)
[2025-02-01] MEDS: 0.9 % Sodium Chloride Flush 3 ML SYRINGE IVFLUSH ×2 (00:08→17:23)
[2025-02-01] MEDS: guaiFENesin 200 MG/10 ML 10 ML LIQUID PO ×3 (02:31→17:20)
[2025-02-01] MEDS: oxyCODONE HCl Immed Release 5 MG TABLET 7.5 MG PO ×4 (02:31→20:43)
[2025-02-01] MEDS: Pantoprazole Sodium 40 MG/10 ML VIAL IVPUSH (06:14)
[2025-02-01 06:27] LABS: Creatinine Clr Calc Pharmacy 52.5; Estimated Glomerular Filt Rate 42
[2025-02-01] MEDS: Docusate Sodium 100 MG CAPSULE PO ×2 (08:11→20:42)
[2025-02-01] MEDS: Lipase/Prot/Amylase 12/38/60K CAPSULE.DR 3 CAP PO ×3 (08:11→17:20)
[2025-02-01] MEDS: metroNIDAZOLE 500 MG TABLET PO ×2 (08:11→20:42)
[2025-02-01] MEDS: Spironolactone 25 MG TABLET 50 MG PO ×2 (08:11→17:22)
[2025-02-01] MEDS: Lactulose 20 GM/30 ML SOLUTION 30 GM PO ×2 (08:11→20:45)
[2025-02-01] MEDS: Gabapentin 100 MG CAPSULE PO ×2 (08:11→20:42)
[2025-02-01 09:22] LABS: Vancomycin Random 15.1 mcg/mL (15-20)
[2025-02-01] MEDS: Albumin Human 25 % 100 ML IV ×2 (09:47→15:46)
--- NOTE | 2025-02-01 09:51 | P.PNIM_ITS ---
Subjective Subjective Date of Service: 02/01/25 Interval History: ascitis , septic arthritis spine Review of Systems seems feeling improving has ascitis Physical Exam 2 Vital Signs: Vital Signs: Last Vital Signs Temp 97.9 F 02/01/25 07:03 Pulse 92 02/01/25 07:03 Resp 18 02/01/25 07:03 BP 125/77 02/01/25 07:03 Pulse Ox 100 02/01/25 07:03 O2 Del Method Room Air 02/01/25 07:03 O2 Flow Rate 2 01/30/25 19:56 BMI result Body Mass Index 28.8 Appearance: Alert.? Oriented X3.? cvs: [id number], [id number] . res: clear to auscultation ,no rhonchii or wheezing GI- acitis,abd tightness improving , ND; +BS ext pulses present , no cyanosis. neuro: axo3 , nonfocal. Objective Data Active Medications Acetaminophen (Acetaminophen 325 Mg Tablet) 650 mg PO Q6H PRN PRN Reason: Pain, Mild 1-3,fever,headache Last Admin: 01/29/25 20:15 Dose: 650 mg Documented By: ESPERANZA Albuterol Sulfate (Albuterol Sulfate 90 Mcg 8 Gm Inhaler) 2 puff INHALE QID PRN PRN Reason: wheezing Lipase/Protease/Amylase (Lipase/Prot/Amylase 12/38/60k Capsule.Dr) 3 cap PO TIDWM [facility] Last Admin: 02/01/25 08:11 Dose: 3 cap Documented By: CLARENCE Buprenorphine/Naloxone (Buprenorphine/Naloxone 8/2 Mg Film) 1 film SUBLINGUAL BID [facility] Last Admin: 02/01/25 07:58 Dose: Not Given Documented By: CLARENCE Non-Admin Reason: Patient Refused Calcium Carbonate (Calcium Carbonate 750 Mg Tab.Chew) 750 mg PO Q4H PRN PRN Reason: Heartburn Last Admin: 02/01/25 09:49 Dose: 750 mg Documented By: CLARENCE Calcium Carbonate (Calcium Oyster Shell Elemental 500 Mg Tablet) 500 mg PO DAILY PRN PRN Reason: Heartburn Ceftriaxone Sodium (Ceftriaxone Sodium 1 Gm Vial) 1 gm IVPUSH Q24H [facility] Last Admin: 01/31/25 12:06 Dose: 1 gm Documented By: CARROL Diphenhydramine HCl (Diphenhydramine Hcl 25 Mg Capsule) 25 mg PO Q6H PRN PRN Reason: itchyness Last Admin: 01/31/25 20:37 Dose: 25 mg Documented By: FRANNIE Docusate Sodium (Docusate Sodium 100 Mg Capsule) 100 mg PO BID [facility] Last Admin: 02/01/25 08:11 Dose: 100 mg Documented By: CLARENCE Gabapentin (Gabapentin 100 Mg Capsule) 100 mg PO BID [facility] Last Admin: 02/01/25 08:11 Dose: 100 mg Documented By: CLARENCE Guaifenesin (Guaifenesin 200 Mg/10 Ml 10 Ml Liquid) 10 ml PO Q4H [facility] Last Admin: 02/01/25 09:46 Dose: Not Given Documented By: CLARENCE Non-Admin Reason: Patient Refused Hydromorphone HCl (Hydromorphone Hcl 0.5 Mg/0.5 Ml Syringe) 0.5 mg IVPUSH Q6H PRN; Protocol PRN Reason: Breakthrough Pain Last Admin: 02/01/25 06:14 Dose: 0.5 mg Documented By: FRANNIE Vancomycin HCl 750 mg/ Sodium (Chloride) 265 mls @ 265 mls/hr IV Q24H [facility] Last Infusion: 01/31/25 13:17 Dose: Infused Documented By: CARROL Albumin Human (Kedbumin 25 %) 100 mls @ 100 mls/hr IV Q6H [facility] Stop: 02/01/25 16:14 Last Admin: 02/01/25 09:47 Dose: 100 mls/hr Documented By: CLARENCE Lactulose (Lactulose 20 Gm/30 Ml Solution) 30 gm PO BID [facility] Last Admin: 02/01/25 08:11 Dose: 30 gm Documented By: CLARENCE Magnesium Hydroxide (Milk Of Magnesia 30 Ml Oral.Susp) 30 ml PO DAILY PRN PRN Reason: Constipation Last Admin: 01/31/25 07:54 Dose: 30 ml Documented By: CARROL Melatonin (Melatonin 3 Mg Tablet) 6 mg PO BEDTIME PRN PRN Reason: Insomnia Last Admin: 01/31/25 20:37 Dose: 6 mg Documented By: FRANNIE Metronidazole (Metronidazole 500 Mg Tablet) 500 mg PO BID [facility] Last Admin: 02/01/25 08:11 Dose: 500 mg Documented By: CLARENCE Omeprazole (Omeprazole 20 Mg Capsule.) 20 mg PO DAILY@0630 [facility] Last Admin: 01/29/25 06:08 Dose: 20 mg Documented By: SIS Oxycodone HCl (Oxycodone Hcl Immed Release 5 Mg Tablet) 7.5 mg PO Q6H PRN PRN Reason: Pain, Moderate(Pain Scale 4-6) Last Admin: 02/01/25 02:31 Dose: 7.5 mg Documented By: FRANNIE Pantoprazole Sodium (Pantoprazole Sodium 40 Mg/10 Ml Vial) 40 mg IVPUSH BID@0630,1630 [facility] Last Admin: 02/01/25 06:14 Dose: 40 mg Documented By: FRANNIE Pharmacy Consult (Consult Rx Vancomycin Dosing) 1 each MISCELLANE DAILY PRN PRN Reason: Consult order Sodium Chloride (0.9 % Sodium Chloride Flush 3 Ml Syringe) 3 ml IVFLUSH QSHIFT [facility] Last Admin: 02/01/25 08:12 Dose: Not Given Documented By: CLARENCE Non-Admin Reason: Previously Administered Spironolactone (Spironolactone 25 Mg Tablet) 50 mg PO BID@0900,1800 [facility]; Protocol Last Admin: 02/01/25 08:11 Dose: 50 mg Documented By: CLARENCE Labs 01/31/25 09:07 02/01/25 06:04 Labs: Laboratory Results - last 24 hr 01/31/25 02/01/25 02/01/25 09:07 06:04 08:57 Estim Creat Clear Calc 52.5 Estimated GFR 42 Random Vancomycin 13.8 L 15.1 Assessment and Plan (1) Abdominal ascites: Status: Acute (2) Septic arthritis of lumbar spine: Status: Acute Plan 44-year-old female with history of hepatic cirrhosis with history of alcohol use disorder and hepatitis-C, or UD on Suboxone, chronic pancreatitis admitted for acute decompensation of hepatic cirrhosis and MRSA bacteremia Acute decompensation of hepatic cirrhosis with ascites in relation to chronic alcohol use . History of hepatitis-C and alcohol use disorder Total bili 4.3, direct bili 3.1, AST 119, ALT 67 Peritoneal fluid analysis-less likely sbp ,fluid culture prelim-negative plan: going for another paracentesis (s/p paracentesis in ed of about 2L, 01/26/25 - removed 5.5 liters ,01/28/25 removed 2.9 liters). going for paracentesis today Gastroenterology consult noted -patient will need paracentesis/albumin, nephro input for IVELISSE and diuretic use.Continue lactulose. h/h is 7.8/22.9 (remain in this range) ,avoid all NSAIDs and aspirin,emperic omeprazole.in addition got vitamin kx3 days for Coagulopathy. d/w nephrology :hold Lasix ,adjusted sprinolactone 50 mg po bid moniter renal function and electrolytes . nephrology following plan to add small dose lasix upon discharge if renal function allows. Acute kidney injury-prerenal vs Hepator renal syndrome (HRS), Cr is slightly better urine -trace protein,urine culture <10,000k cfu/ml s/p Albumin plan: Nephrology following- ivelisse improving ,adjusted spironolactone, monitor renal function electrolytes. hypokalemia-replted and resolved. hyponatremia also improving Acute non-anion gap metabolic acidosis, bicab is similar range r/t IVELISSE and liver failure ivelisse improved significantly MRSA bacteremia dx 12/27 from paraspinal abscess drained 01/14 TTE at the time negative for endocarditis Had been on IV vancomycin but left against medical advice as she was recommended for SNF given history of IV drug abuse Blood cultures negative so far Echocardiogram TTE: seems fine mri Lspine :Septic arthritis of the left L3-L4 facet joint with associated joint effusion, which extends into the posterolateral epidural space, left neural foramen, as well as the paraspinous soft tissues as described above, with surrounding cellulitis. denies back pain ,has local mild erythema in lumbar area. ID consult-d/w mri results -vanco trough improving-restarted vanco ,continue ceftriaxone. neuro eval due to abnormal mri/recent paraspinal abscess/mrsa bacteremia ,moniter vanco trough . patient denies any back pain or new symptoms plan is placing PICC line in anticipation of long-term antibiotic need for concern of septic arthritis of lumbar spine-patient failed picc line -might need picc line/floro on saturday. Discussed with Nephrology -nephrology cleared for PICC line-patient will need 6 weeks of antibiotics chest pain yesterday-resolved ekg similar , troponinsx1 negative. Alcohol use disorder Reports last use was 2 months ago Monitor on CIWA, initiate phenobarbital showed evidence of withdrawal arise Coagulopathy INR 2 Vit K 10 mg daily Completed for 3 days. Chronic macrocytic anemia h/h trending down for which recieved 1 prbc (01/29/25) -7.8/-seems appropriate response . ppi ,Vitamin B12 and folic acid level normal,iron panel also fine d/w Gi dr martinez -moniter h/h ,ppi moniter h/h patient will need to follow up with her GI. vaginal : bacterial vaginosis ,ana given fluconazole 150 mg-consider repeat dosing if needed. on metronidazole bid since 01/31/25 : 2/7 days . Polysubstance abuse/OUD--denying substance use but positive for opioid, fentanyl, barbitruate, benzo, along with methadone, suboxone Continue Suboxone Addiction medicine consult following Chronic thrombocytopenia Due to above DVT prophylaxis- SCPs Full code. patient was updated regarding above in detail /also her mother was updated also.they understands and in agreement with above plan. Quality Stroke Does the patient have a stroke diagnosis?: No VTE Prior VTE?: No VTE Risk Level:: Medical - moderate - high VTE Device Contraindication: N/A - Device Ordered VTE Drug Contraindication: Treatment Not Indicated
[2025-02-01] MEDS: vancomycin HCL 750 MG in 0.9 % Sodium Chloride 250 ML 265 MG IV (11:02)
--- NOTE | 2025-02-01 11:29 | P.PNNP_ITS ---
Subjective Subjective Date of Service: 02/01/25 Interval history: Seen this morning. Events noted. Due paracentesis. Renal function improved Physical Exam 2 Vital Signs: Vital Signs: Last Vital Signs Temp 97.9 F 02/01/25 07:03 Pulse 92 02/01/25 07:03 Resp 18 02/01/25 07:03 BP 125/77 02/01/25 07:03 Pulse Ox 100 02/01/25 07:03 O2 Del Method Room Air 02/01/25 07:03 O2 Flow Rate 2 01/30/25 19:56 BMI result Body Mass Index 28.8 Const: General: no acute distress Orientation/consciousness: patient oriented x3 Eyes: EOM: EOMs intact bilaterally Neck: Neck: Yes supple Resp: Auscultation: diminished lung sounds Cardio: Rate: regular rate GI: Inspection: Yes distended Palpation (GI): Soft to palpation Neuro: General: patient oriented x3 and moves all extremities Objective Data Labs 01/31/25 09:07 02/01/25 06:04 Labs: Laboratory Results - last 24 hr 02/01/25 02/01/25 06:04 08:57 Creatinine 1.35 Estim Creat Clear Calc 52.5 Estimated GFR 42 Random Vancomycin 15.1 Microbiology Microbiology Results: Microbiology 01/23/25 12:49 Blood - Venous Blood Culture - Final No growth after 5 days. 01/23/25 12:30 Blood - Venous Blood Culture - Final No growth after 5 days. 01/23/25 14:57 Ascites Fluid Gram Stain - Final 01/23/25 14:57 Ascites Fluid Anaerobic Culture - Final NO GROWTH AFTER 5 DAYS 01/23/25 14:57 Ascites Fluid Body Fluid Culture - Final No growth after 2 days 01/23/25 16:55 Urine clean catch - Clean Catch Midstream Urine Culture - Final Procedures Date of Service Date of Service: 02/01/25 Assessment & Plan Assessment and plan (1) IVELISSE (acute kidney injury): Status: Acute Plan IVELISSE multifactorial Has underlying HRS 2 @ baseline Urine Na was < 20 Serum creatinine better Increased Spironolactone to 50 mg bid For Paracentesis;Lasix 20 mg daily C/W rest of current management OK to have PICC line Labs AM. Shall closely F/U Progress Note: Quality Stroke Does the patient have a stroke diagnosis?: No
[2025-02-01] MEDS: cefTRIAXone sodium 1 GM VIAL IVPUSH (12:18)
--- NOTE | 2025-02-01 13:40 | MHC.CM.PN ---
Addendum entered by Clare Orosco RN 02/01/25 15:35: [facility] ret[facility] bed offer. Patient aware and has accepted a bed at [facility]. Original Note: Patient awaiting PICC placement and paracentesis. Anticipate dc tomorrow to [facility] for IV abx. Liaison working on auth and PASRR level 2. Patient updated. CM will continue to follow.
[2025-02-01] MEDS: diphenhydrAMINE HCL 25 MG CAPSULE PO (21:09)
[2025-02-01] MEDS: Melatonin 3 MG TABLET 6 MG PO (21:09)
--- NOTE | 2025-02-01 21:58 | PC.NURSE ---
Addendum entered by JEFFERSON Cao 02/02/25 06:02: this morning gauze saturated again. pt does not want to change drsg at this time as she doesn't want to make it worse. Original Note: when I went to assess pts PICC line it was leaking under the tegaderm and the gauze was saturated w/ blood. redressed PICC and will monitor throughout the night.
[2025-02-02] MEDS: HYDROmorphone HCl 0.5 MG/0.5 ML SYRINGE IVPUSH ×3 (00:33→12:44)
[2025-02-02] MEDS: 0.9 % Sodium Chloride Flush 3 ML SYRINGE IVFLUSH ×3 (00:36→16:24)
[2025-02-02] MEDS: oxyCODONE HCl Immed Release 5 MG TABLET 7.5 MG PO ×3 (02:44→15:18)
[2025-02-02 03:24] VITALS: BP 91/53; PULSE 77; RESP 18; TEMP 37.1; O2SAT 99
[2025-02-02 06:35] LABS: Creatinine Clr Calc Pharmacy 55.4; Estimated Glomerular Filt Rate 45
[2025-02-02 06:40] LABS: Basophils Percent Auto 0.9 % (0-2); Eosinophils Absolute Auto 0.1 X10*3/uL (0.0-0.4); Eosinophils Percent Auto 4.5 % (0-4); Hematocrit 21.9 % (37.0-47.0); Hemoglobin 7.6 g/dl (12.0-16.0); Lymphocytes Absolute Auto 0.8 X10*3/uL (1.2-4.9); Lymphocytes Percent Auto 36.6 % (20-40); MANUAL DIFF FLAG SCAN; Mean Corpuscular HGB Conc 34.7 g/dl (31.0-35.0); Mean Corpuscular Hemoglobin 33.6 pg (27.0-33.0); Mean Corpuscular Volume 96.9 fL (80.0-98.0); Mean Platelet Volume 10.3 fL (9.4-12.3); Monocytes Absolute Auto 0.2 X10*3/uL (0.1-1.2); Neutrophils Absolute Auto 1.1 x10*3/uL (2.0-8.3); Red Blood Count 2.26 X10*6/uL (4.20-5.50); Red Cell Distribution Width 17.2 % (11.0-16.0); SCAN SMEAR FLAG 1
[2025-02-02 06:45] LABS: Platelet Count 36 X10*3/uL (160-400); White Blood Count 2.2 X10*3/uL (4.8-10.8)
[2025-02-02 06:54] LABS: Alanine Aminotransferase 17 U/L (0-31); Albumin Level 3.4 g/dL (3.5-5.0); Alkaline Phosphatase 53 U/L (39-117); Anion Gap 12 (12-20); Aspartate Amino Transferase 44 U/L (5-31); Bilirubin Direct 1.6 mg/dL (0.0-0.5); Bilirubin Total 3.1 mg/dL (0.0-1.0); Carbon Dioxide 15 mmol/L (22-29); Chloride 108 mmol/L (96-108); Potassium 3.5 mmol/L (3.3-5.1); Sodium 131 mmol/L (135-145); Total Protein 6.1 g/dL (6.5-8.0)
[2025-02-02 07:03] LABS: SLIDE REVIEW VERIFIED
[2025-02-02 07:16] LABS: Magnesium 1.4 mg/dL (1.6-2.6)
[2025-02-02 07:17] VITALS: BP 110/58; PULSE 85; RESP 18; TEMP 37.1; O2SAT 98
--- NOTE | 2025-02-02 07:23 | PC.NURSE ---
PICC line bleeding after insertion yesterday, night supervisor reported drsging change 2x, continues to saturate dressings. IR and aware.
[2025-02-02 08:08] LABS: INTERNATIONAL NORM RATIO 2.3 (0.9-1.1); Prothrombin Time 27.1 SEC (10.9-12.4)
[2025-02-02 08:11] LABS: Hematocrit 25.6 % (37.0-47.0); Hemoglobin 8.6 g/dl (12.0-16.0); Mean Corpuscular HGB Conc 33.6 g/dl (31.0-35.0); Mean Corpuscular Hemoglobin 33.1 pg (27.0-33.0); Mean Corpuscular Volume 98.5 fL (80.0-98.0); Red Cell Distribution Width 17.1 % (11.0-16.0); White Blood Count 4.1 X10*3/uL (4.8-10.8)
[2025-02-02 08:12] LABS: Platelet Count 52 X10*3/uL (160-400)
[2025-02-02] MEDS: Lipase/Prot/Amylase 12/38/60K CAPSULE.DR 3 CAP PO ×2 (09:15→12:44)
[2025-02-02] MEDS: Docusate Sodium 100 MG CAPSULE PO (09:15)
[2025-02-02] MEDS: metroNIDAZOLE 500 MG TABLET PO (09:16)
[2025-02-02] MEDS: Gabapentin 100 MG CAPSULE PO (09:16)
[2025-02-02] MEDS: Omeprazole 20 MG CAPSULE.DR PO (09:16)
[2025-02-02] MEDS: Lactulose 20 GM/30 ML SOLUTION 30 GM PO (09:17)
[2025-02-02] MEDS: Spironolactone 25 MG TABLET 50 MG PO (09:17)
--- NOTE | 2025-02-02 09:40 | P.PNIM_ITS ---
Subjective Subjective Date of Service: 02/02/25 Interval History: ascitis , septic arthritis spine no new issues Review of Systems Physical Exam 2 Vital Signs: Vital Signs: Last Vital Signs Temp 98.7 F 02/02/25 07:17 Pulse 85 02/02/25 07:17 Resp 18 02/02/25 07:17 BP 110/58 L 02/02/25 07:17 Pulse Ox 98 02/02/25 07:17 O2 Del Method Room Air 02/02/25 07:17 O2 Flow Rate 2 02/01/25 15:05 BMI result Body Mass Index 28.8 Objective Data Active Medications Acetaminophen (Acetaminophen 325 Mg Tablet) 650 mg PO Q6H PRN PRN Reason: Pain, Mild 1-3,fever,headache Last Admin: 01/29/25 20:15 Dose: 650 mg Documented By: ESPERANZA Albuterol Sulfate (Albuterol Sulfate 90 Mcg 8 Gm Inhaler) 2 puff INHALE QID PRN PRN Reason: wheezing Lipase/Protease/Amylase (Lipase/Prot/Amylase 12/38/60k Capsule.) 3 cap PO TIDWM [facility] Last Admin: 02/02/25 09:15 Dose: 3 cap Documented By: RAEANN Buprenorphine/Naloxone (Buprenorphine/Naloxone 8/2 Mg Film) 1 film SUBLINGUAL BID [facility] Last Admin: 02/02/25 09:15 Dose: Not Given Documented By: RAEANN Non-Admin Reason: Patient Refused Calcium Carbonate (Calcium Carbonate 750 Mg Tab.Chew) 750 mg PO Q4H PRN PRN Reason: Heartburn Last Admin: 02/01/25 17:22 Dose: 750 mg Documented By: ISRA Calcium Carbonate (Calcium Oyster Shell Elemental 500 Mg Tablet) 500 mg PO DAILY PRN PRN Reason: Heartburn Ceftriaxone Sodium (Ceftriaxone Sodium 1 Gm Vial) 1 gm IVPUSH Q24H [facility] Last Admin: 02/01/25 12:18 Dose: 1 gm Documented By: CLARENCE Diphenhydramine HCl (Diphenhydramine Hcl 25 Mg Capsule) 25 mg PO Q6H PRN PRN Reason: itchyness Last Admin: 02/01/25 21:09 Dose: 25 mg Documented By: FRANNIE Docusate Sodium (Docusate Sodium 100 Mg Capsule) 100 mg PO BID [facility] Last Admin: 02/02/25 09:15 Dose: 100 mg Documented By: RAEANN Gabapentin (Gabapentin 100 Mg Capsule) 100 mg PO BID [facility] Last Admin: 02/02/25 09:16 Dose: 100 mg Documented By: RAEANN Guaifenesin (Guaifenesin 200 Mg/10 Ml 10 Ml Liquid) 10 ml PO Q4H [facility] Last Admin: 02/02/25 05:42 Dose: Not Given Documented By: FRANNIE Non-Admin Reason: Patient Refused Hydromorphone HCl (Hydromorphone Hcl 0.5 Mg/0.5 Ml Syringe) 0.5 mg IVPUSH Q6H PRN; Protocol PRN Reason: Breakthrough Pain Last Admin: 02/02/25 06:34 Dose: 0.5 mg Documented By: FRANNIE Vancomycin HCl 750 mg/ Sodium (Chloride) 265 mls @ 265 mls/hr IV Q24H [facility] Last Infusion: 02/01/25 12:09 Dose: Infused Documented By: CLARENCE Magnesium Sulfate (Magnesium Sulfate/H2o) 2 gm in 50 mls @ 25 mls/hr IV ONCE ONE Stop: 02/02/25 11:36 Lactulose (Lactulose 20 Gm/30 Ml Solution) 30 gm PO BID [facility] Last Admin: 02/02/25 09:17 Dose: 30 gm Documented By: RAEANN Magnesium Hydroxide (Milk Of Magnesia 30 Ml Oral.Susp) 30 ml PO DAILY PRN PRN Reason: Constipation Last Admin: 01/31/25 07:54 Dose: 30 ml Documented By: CARROL Melatonin (Melatonin 3 Mg Tablet) 6 mg PO BEDTIME PRN PRN Reason: Insomnia Last Admin: 02/01/25 21:09 Dose: 6 mg Documented By: FRANNIE Metronidazole (Metronidazole 500 Mg Tablet) 500 mg PO BID [facility] Last Admin: 02/02/25 09:16 Dose: 500 mg Documented By: RAEANN Omeprazole (Omeprazole 20 Mg Capsule.) 20 mg PO DAILY [facility] Last Admin: 02/02/25 09:16 Dose: 20 mg Documented By: RAEANN Oxycodone HCl (Oxycodone Hcl Immed Release 5 Mg Tablet) 7.5 mg PO Q6H PRN PRN Reason: Pain, Moderate(Pain Scale 4-6) Last Admin: 02/02/25 09:16 Dose: 7.5 mg Documented By: RAEANN Pharmacy Consult (Consult Rx Vancomycin Dosing) 1 each MISCELLANE DAILY PRN PRN Reason: Consult order Sodium Chloride (0.9 % Sodium Chloride Flush 3 Ml Syringe) 3 ml IVFLUSH QSHIFT [facility] Last Admin: 02/02/25 09:15 Dose: 3 ml Documented By: RAEANN Spironolactone (Spironolactone 25 Mg Tablet) 50 mg PO BID@0900,1800 SKYE; Protocol Last Admin: 02/02/25 09:17 Dose: 50 mg Documented By: RAEANN Labs 02/02/25 07:51 02/02/25 05:51 Labs: Laboratory Results - last 24 hr 02/02/25 02/02/25 05:51 07:51 MCV 96.9 98.5 H MCH 33.6 H 33.1 H MCHC 34.7 33.6 RDW 17.2 H 17.1 H Plt Count 36 L D 52 L D MPV 10.3 10.0 Immature Gran % (Auto) 0.0 Neut % (Auto) 50.0 Lymph % (Auto) 36.6 [place] % (Auto) 8.0 Eos % (Auto) 4.5 H Baso % (Auto) 0.9 Lymph # (Auto) 0.8 L [place] # (Auto) 0.2 Eos # (Auto) 0.1 Baso # (Auto) 0.0 Abs Immat Gran (auto) 0.00 Absolute Neuts (auto) 1.1 L Absolute Nucleated RBC 0.000 0.000 Nucleated RBC % (auto) 0.0 0.0 Smear Tech's Comments VERIFIED Hold Purple Top SEE NOTE PT 27.1 H INR 2.3 H Anion Gap 12 Estim Creat Clear Calc 55.4 Estimated GFR 45 Magnesium 1.4 L* Total Bilirubin 3.1 H Direct Bilirubin 1.6 H AST 44 H ALT 17 Alkaline Phosphatase 53 Total Protein 6.1 L Albumin 3.4 L Blood Type A Positive Antibody Screen NEGATIVE Assessment and Plan (1) Abdominal ascites: Status: Acute (2) Septic arthritis of lumbar spine: Status: Acute Plan 44-year-old female with history of hepatic cirrhosis with history of alcohol use disorder and hepatitis-C, or UD on Suboxone, chronic pancreatitis admitted for acute decompensation of hepatic cirrhosis and MRSA bacteremia Acute decompensation of hepatic cirrhosis with ascites in relation to chronic alcohol use . History of hepatitis-C and alcohol use disorder LFTs stable No evidence of SBP on peritoneal fluid s/p s/p paracentesis in ed of about 2L, 01/26/25 -removed 5.5 liters ,01/28/25 removed 2.9 liters, 3 liter on 02/01 Seen by GI: medical management with Aldactone, holding Lasix, no NSAID. Low dose lasix at DC Acute kidney injury-prerenal vs Hepator renal syndrome (HRS), IVELISSE resolved. Hypokalemia and hypomagnesemia--replete and recheck chronic Acute non-anion gap metabolic acidosis, d/t liver disease and renal failu bicab is similar range MRSA bacteremia dx 12/27 from paraspinal abscess drained 01/14 TTE at the time negative for endocarditis Had been on IV vancomycin but left against medical advice as she was recommended for SNF given history of IV drug abuse Blood cultures negative so far Echocardiogram TTE: seems fine mri Lspine :Septic arthritis of the left L3-L4 facet joint with associated joint effusion, which extends into the posterolateral epidural space, left neural foramen, as well as the paraspinous soft tissues as described above, with surrounding cellulitis. denies back pain ,has local mild erythema in lumbar area. ID consult-d/w mri results -vanco trough improving-restarted vanco ,continue ceftriaxone. neuro eval due to abnormal mri/recent paraspinal abscess/mrsa bacteremia ,moniter vanco trough . patient denies any back pain or new symptoms plan is placing PICC line in anticipation of long-term antibiotic need for concern of septic arthritis of lumbar spine-patient failed picc line -might need picc line/floro on saturday. Discussed with Nephrology -nephrology cleared for PICC line-patient will need 6 weeks of antibiotics chest pain yesterday-resolved ekg similar , troponinsx1 negative. Alcohol use disorder Reports last use was 2 months ago Monitor on CIWA, initiate phenobarbital showed evidence of withdrawal arise Coagulopathy INR 2 Vit K 10 mg daily x 3, INR still high, repeat vit K x 3 days Chronic macrocytic anemia h/h trending down for which recieved 1 prbc (01/29/25) -7.8/-seems appropriate response . ppi ,Vitamin B12 and folic acid level normal,iron panel also fine d/w Gi dr martinez -moniter h/h ,ppi moniter h/h patient will need to follow up with her GI. bacterial vaginosis ,ana given fluconazole 150 mg-consider repeat dosing if needed. on metronidazole bid since 25 : 3/7 days . Polysubstance abuse/OUD--denying substance use but positive for opioid, fentanyl, barbitruate, benzo, along with methadone, suboxone Continue Suboxone Addiction medicine consult following Chronic thrombocytopenia Due to above DVT prophylaxis- SCPs Full code. patient was updated regarding above in detail /also her mother was updated also.they understands and in agreement with above plan. Quality Stroke Does the patient have a stroke diagnosis?: No VTE Prior VTE?: No VTE Risk Level:: Medical - moderate - high VTE Device Contraindication: N/A - Device Ordered VTE Drug Contraindication: Treatment Not Indicated
[2025-02-02] MEDS: Magnesium Sulfate/H2O 2 GM/50 ML PIGGYBACK IV (10:48)
[2025-02-02] MEDS: cefTRIAXone sodium 1 GM VIAL IVPUSH (11:55)
[2025-02-02] MEDS: vancomycin HCL 750 MG in 0.9 % Sodium Chloride 250 ML 265 MG IV (11:55)
--- NOTE | 2025-02-02 12:35 | MHC.CM.PN ---
Per MD patient medically cleared for dc. DP: [facility] for IV abx. BLS transport booked for 5pm. IMM delivered.
--- NOTE | 2025-02-02 14:12 | PM.EVENT ---
Event Note Date of Service: 02/02/25 Event Note: Addiction note Patient scheduled to D/C today to SNF declined to restart buprenorphine while here due to pain Plan: -hospitalist made aware that buprenorphine was not restarted per patient request, stated he would provide rx for pain mangement -online merchandising specialist coordinated appt with telehealth provider as requested patient, due to transportation issues Time Spent With Patient Time: Total time managing care of this patient today ____ minutes.
--- NOTE | 2025-02-02 14:54 | P.DS_ITS ---
DS: Providers Provider Date of Service: 02/02/25 Date of admission: 01/23/25 16:20 Date of discharge: 02/02/25 Primary care physician: None Physician Consults: 01/23/25 16:28 Consult to Infectious Diseases Routine Consulting Provider[place] [facility] [place] [facility] Reason for consultation: MRSA bacteremia- [facility] left ama 01/23/25 16:56 Addiction Medicine Provider Routine Consulting Provider: Addiction [facility]ing Reason for consultation: Polysubstance abuse, oUD 01/23/25 16:58 Consult to Gastroenterology Routine Consulting Provider: Kameron Suarez Reason for consultation: Decompensated cirrhosis 01/24/25 07:54 Consult to Nephrology Routine Consulting Provider: [facility] Reason for consultation: IVELISSE 01/25/25 11:03 Inpt - Recovery Team Routine Comment: Reason for consultation: GABI eval 01/27/25 09:13 Consult to Neurology Routine Consulting Provider: [facility] Reason for consultation: possible septic arthritis of lumbar spine, hx of mrsa bacteremia DS: Diagnosis Discharge Diagnosis (1) Abdominal ascites: Status: Acute (2) Septic arthritis of lumbar spine: Status: Acute DS: Summary Hospital Course Hospital Course: admission hpi Chief Complaint: abd pain 44-year-old female with history of hepatic cirrhosis with history of alcohol use disorder and hepatitis-C, or UD on Suboxone, chronic pancreatitis presented to the ED earlier today for evaluation of diffuse abdominal pain. She denies any fevers, chills, nausea, vomiting, shortness of breath. She has been compliant with lactulose. She states she was previously on methadone was recently switched to Suboxone and has been experiencing 4-5 episodes of diarrhea daily since she was switched. She states that she has not had any 2 months. She states last illicit/IV drug use was 20 years ago. She is following with Gastroenterology and is hoping for a level transplant. She has an appointment on February 03 (Dr. Dennison). In the ED, blood pressure soft but no hypotension. No leukocytosis. Chronic stable normocytic anemia with H/H 7.6/22.9%, consistent with baseline labs from [facility]. Platelets 75,000. Creatinine 2.46, baseline 1.2. BUN 37. Sodium 131. CO2 15. VBG pending.. Lactic acid 1.4. Total bilirubin 4.3, direct bilirubin 3.1, AST 119, ALT 67. Initial troponin 20.1, repeat pending. Urinalysis with 3+ blood, 2+ leukocytes. Paracentesis performed at bedside of about 2L Peritoneal fluid analysis pending. She was admitted to [facility] 12/27-01/20 due to encephalopathy and required ICU treatment due to severe alcohol withdrawal treated with phenobarbital and subsequently Precedex drip. Underwent paracentesis of 1.6 L 01/07 and then subsequent paracentesis with 3.6 L 01/19 without any complication. Fluid analysis unavailable. Has undergone multiple paracentesis in the past. She was also septic with septic shock due to paraspinal abscess. Paraspinal abscess mid lumbar region greatest at L3-L4 drained on 01/14. PICC line was placed and patient was started on vancomycin as blood cultures were positive for MRSA bacteremia. TTE at that time ruled out endocarditis but patient left AMA as she did not want to go to SNF though vancomycin was recommended to be continued until February 28 per ID. The patient tells me that she was being considered for VNA, however on review of [facility] records, it appears she was referred to SNF which she did not agree with an ultimately left against medical advice. In the ED, received albumin x2, lorazepam, morphine, IV ceftriaxone, IV vanco, ondansetron, and NS. 44-year-old female with history of hepatic cirrhosis with history of alcohol use disorder and hepatitis-C, or UD on Suboxone, chronic pancreatitis admitted for acute decompensation of hepatic cirrhosis and MRSA bacteremia Hospital course: The patient was diagnosed with sepsis due to MRSA bacteremia and a paraspinal abscess at [facility] around December 27. The abscess was drained on January 14, and a plan was made to treat with long-term IV antibiotics. However, the patient left against medical advice (AMA) and re-presented to [facility] on January 23. At [place], repeat blood cultures have remained negative. An MRI of the lumbar spine on January 26 revealed septic arthritis of the left L3-L4 facet joint, with an associated joint effusion extending into the posterolateral epidural space, left neural foramen, and paraspinal soft tissues, along with surrounding cellulitis. An echocardiogram showed no vegetations, and the patient has no focal neurological deficits. Per infectious disease (ID) recommendations, the patient will complete six weeks of IV vancomycin, which was initiated on January 23. A PICC line was placed on Ap ril 7 to facilitate this therapy. The anticipated completion date of vancomycin therapy is March 06. While on vancomycin, she should have: * Weekly random vancomycin levels * Weekly BUN and creatinine to monitor renal function Acute decompensation of hepatic cirrhosis with ascites in relation to chronic alcohol use and history of hepatitis C, LFTS have been stable and yet has recurrent ascietes and has had multiple paracenteses as follow 2L, 01/26/25 - removed 5.5 liters ,01/28/25 removed 2.9 liters, 3 liter on 02/01. GI recommends medical management with Aldactone and will start on low dose Lasix of 20 mg daily NSAID and hepatotoxin should be avoided Acute kidney injury-prerenal vs Hepator renal syndrome (HRS). She presented with IVELISSE with initial creatine of 2.46 raising concern for possible hepato renal syndrome. Treated with Albumin and renal function has improved at presently 1.28 on 02/02. Hypokalemia and hypomagnesemia, corrected, potassium is within normal, mangesium if 1.4 today replaced with 2 gram and giving oral replacement with mag oxicde 800 mg twice daily chronic Acute non-anion gap metabolic acidosis, d/t liver disease and renal failu bicab of 15 and stable. Alcohol use disorder--cessation advised and no withdrawal while in hospital Coagulopathy INR 2 Vit K 10 mg daily x 3, INR still high, repeat vit K x 3 days Chronic macrocytic anemia h/h trending down for which recieved 1 prbc (01/29/25) -7.8/23 and improved, presently 8.6/25 today. Outpatient follow up with GI. Vit B12 and folate normal Bacterial vaginosis ,ana , treated with fluconazole 150 mg once and metronidazol earlier Polysubstance abuse/OUD--denying substance use but positive for opioid, fentanyl, barbitruate, benzo, along with methadone, suboxone Continue Suboxone, patient has refused suboxone in the hospital because it interferes with pain medication. Addiction medicine consult following Chronic thrombocytopenia due to liver disease and stable. To short term rehab for less than 30 days Time Attestation Discharge Coordination Time (in mins): 45 Quality: Safe Use of Opioids Does Pt have an Active Cancer Diagnosis on the Problem List?: No Quality: Stroke Does the patient have a stroke diagnosis?: No Physical Exam Vital Signs: Vital Signs: Last Vital Signs Temp 98.7 F 02/02/25 07:17 Pulse 85 02/02/25 07:17 Resp 18 02/02/25 07:17 BP 110/58 L 02/02/25 07:17 Pulse Ox 98 02/02/25 07:17 O2 Del Method Room Air 02/02/25 07:17 O2 Flow Rate 2 02/01/25 15:05 BMI result Body Mass Index 28.8 Appearance: Alert.? Oriented X3.? cvs: rrr, [id number] . res: clear to auscultation ,no rhonchii or wheezing GI- acitis,abd tightness improving , ND; +BS ext pulses present , no cyanosis. neuro: axo3 , nonfocal. DS: Data Data Completed and Pending Labs on day of discharge: Laboratory Results - last 24 hr 02/02/25 02/02/25 05:51 07:51 WBC 2.2 L 4.1 L RBC 2.26 L 2.60 L Hgb 7.6 L 8.6 L Hct 21.9 L 25.6 L MCV 96.9 98.5 H MCH 33.6 H 33.1 H MCHC 34.7 33.6 RDW 17.2 H 17.1 H Plt Count 36 L D 52 L D MPV 10.3 10.0 Immature Gran % (Auto) 0.0 Neut % (Auto) 50.0 Lymph % (Auto) 36.6 [place] % (Auto) 8.0 Eos % (Auto) 4.5 H Baso % (Auto) 0.9 Lymph # (Auto) 0.8 L [place] # (Auto) 0.2 Eos # (Auto) 0.1 Baso # (Auto) 0.0 Abs Immat Gran (auto) 0.00 Absolute Neuts (auto) 1.1 L Absolute Nucleated RBC 0.000 0.000 Nucleated RBC % (auto) 0.0 0.0 Smear Tech's Comments VERIFIED Hold Purple Top SEE NOTE PT 27.1 H INR 2.3 H Sodium 131 L Potassium 3.5 Chloride 108 Carbon Dioxide 15 L Anion Gap 12 Creatinine 1.28 Estim Creat Clear Calc 55.4 Estimated GFR 45 Magnesium 1.4 L* Total Bilirubin 3.1 H Direct Bilirubin 1.6 H AST 44 H ALT 17 Alkaline Phosphatase 53 Total Protein 6.1 L Albumin 3.4 L Blood Type A Positive Antibody Screen NEGATIVE Discharge Plan Discharge Anticipated Discharge Date/Time: 02/02/25 15:30 Patient Disposition: Xfer SNF Discharge Diagnosis: Sepsis, MRSA bacteremia, paraspinal abscess Referrals: [facility] [Other] - 02/11/25 2:00 pm [facility] [Outside] - 1 Day (complete IV antibiotics) Physician,None [Primary Care Provider] - 1 Week Discharge Medications: New oxycodone 5 mg Tablet 7.5 mg PO Q6H PRN (Reason: Pain, Moderate(Pain Scale 4-6)) Qty: 20 0RF Rx Instructions: Partial Fill upon patient request. omeprazole 20 mg Capsule,Delayed Release(Dr/Ec) 20 mg PO DAILY Qty: 30 0RF magnesium oxide 400 mg (241.3 mg magnesium) Tablet 800 mg PO BIDPC Qty: 60 0RF furosemide [Lasix] 20 mg tablet 20 mg PO DAILY Qty: 30 0RF vancomycin in 0.9 % sodium chl 750 mg/150 mL solution 750 mg IV Q12H 32 Days Continued albuterol sulfate 90 mcg/actuation HFA aerosol inhaler 2 puff INHALATION QID PRN (Reason: wheezing) lactulose 10 gram/15 mL solution 15 ml PO BID ibuprofen 200 mg Tablet 400 mg PO Q6H PRN (Reason: Pain) calcium carbonate [Tums 500] 500 mg calcium (1,250 mg) Tablet,Chewable 500 mg PO DAILY PRN (Reason: Heartburn) buprenorphine-naloxone 8-2 mg film 1 film sublingual BID furosemide 20 mg tablet 20 mg PO DAILY spironolactone 50 mg tablet 50 mg PO DAILY Creon 36,000-114,000- 180,000 unit capsule,delayed release(DR/EC) 1 cap PO TIDWM Discontinued gabapentin 100 mg capsule 100 mg PO BID Discharge Orders: Discharge Order (Routine); Ordered 02/02/25 Ordered By: Bill Magana Diet: Advance to usual diet Activity on Discharge: As tolerated Stand Alone Forms: Patient Portal Discharge page Print Language: Croatian Care Plan Goals: recovery from sepsis, mrsa bacteremia and paraspinal abscess Health Concerns: mrsa bacteremia and paraspinal abscess, opioid dependence, cirrhosis of liver, reccurnt ascietes Plan of Treatment: IV vancomycin 750 mg daily until March 06 ccheck bun and creatine weekly on mondays while on vancomycin follow up with your doctor and your livere docot in 1 to 2 weeks, avoid alcohol and drugs To short term rehab for less than 30 days Assessment: see above Patient Instructions: Vancomycin (By injection), MRSA (Methicillin-Resistant Staphylococcus Aureus) (DC), Abscess (GEN), Bacteremia (DC)
[2025-02-02 16:20] LABS: Magnesium 1.8 mg/dL (1.6-2.6)
[2025-02-02 16:52] VITALS: BP 109/61; PULSE 90; RESP 18; TEMP 36.3; O2SAT 100
== END 2025-02-02 17:10 | disposition skilled nursing facility (03) | DRG 432 ==
LOC: HO.ED 14:25 → HO.EDOVER 16:51 → HO.IMC 19:21 → HO.S3 01-24 12:23
PROVIDERS: Internal Medicine; Internal Medicine Nephrology; Nurse Practitioner Family; Radiology Diagnostic Radiology; Admitting Provider Physician Assistant; Emergency Provider Internal Medicine; Visit Provider Internal Medicine
PROC: 0W9G30Z Drainage of Peritoneal Cavity with Drainage Device, Percutaneous Approach (ICD-10-PCS; principal; 2025-01-26 09:00)
PROC: 0W9G3ZZ Drainage of Peritoneal Cavity, Percutaneous Approach (ICD-10-PCS; principal; 2025-01-28 12:00)
DX: K70.31 Alcoholic cirrhosis of liver with ascites (principal); K76.7 Hepatorenal syndrome; D68.4 Acquired coagulation factor deficiency; F11.20 Opioid dependence, uncomplicated; N17.9 Acute kidney failure, unspecified; E87.21 Acute metabolic acidosis; E87.1 Hypo-osmolality and hyponatremia; E80.6 Other disorders of bilirubin metabolism; K70.40 Alcoholic hepatic failure without coma; N76.0 Acute vaginitis; B37.31 Acute candidiasis of vulva and vagina; D53.9 Nutritional anemia, unspecified; D69.59 Other secondary thrombocytopenia; E87.6 Hypokalemia; M46.56 Other infective spondylopathies, lumbar region; F19.10 Other psychoactive substance abuse, uncomplicated; Z86.19 Personal history of other infectious and parasitic diseases; Z86.14 Personal history of Methicillin resistant Staphylococcus aureus infection; Z79.899 Other long term (current) drug therapy
CPT/HCPCS: 36415; 36573; 49083; 71045; 72158; 74176; 80048; 80051; 80076; 80202; 80307; 81001; 81515; 82042; 82310; 82565; 82607; 82746; 82803; 82945; 82947; 83540; 83605; 83690; 83735; 84132; 84157; 84300; 84484; 84520; 85014; 85018; 85025; 85027; 85610; 86160; 86850; 86900; 86901; 86923; 87040; 87070; 87073; 87086; 87205; 87491; 87493; 87507; 87591; 89051; 93005; 93306; 99285; A9585; C1751; J0696; J1171; J2003; J2060; J2270; J2405; J2470; J3370; J3430; J3475; J7120; P9016; P9047; Q9957; S9485

== ENCOUNTER → 2025-01-23 10:43 | Outpatient (BNV) | payer OTHER, SELFPAY | PROVIDERS: Admitting Provider Physician Assistant; Emergency Provider Internal Medicine; Visit Provider Internal Medicine Cardiovascular Disease | DX: R94.31 Abnormal electrocardiogram [ECG] [EKG] (principal); R10.10 Upper abdominal pain, unspecified | CPT/HCPCS: 93010 ==

== ENCOUNTER → 2025-01-23 12:16 | Outpatient (BNV) | payer OTHER, SELFPAY | PROVIDERS: Emergency Provider Internal Medicine; Visit Provider Radiology Diagnostic Radiology | DX: R10.9 Unspecified abdominal pain (principal); R16.1 Splenomegaly, not elsewhere classified; R18.8 Other ascites | CPT/HCPCS: 74176 ==

== ENCOUNTER 2025-01-23 16:20 | Outpatient (BNV) | payer OTHER, SELFPAY | END 2025-01-28 11:45 | PROVIDERS: Admitting Provider Physician Assistant; Emergency Provider Internal Medicine; Visit Provider Radiology Diagnostic Radiology | DX: R18.8 Other ascites (principal) | CPT/HCPCS: 49083 ==

== ENCOUNTER 2025-01-23 16:20 | Outpatient (BNV) | payer OTHER, SELFPAY | END 2025-01-25 07:00 | PROVIDERS: Admitting Provider Physician Assistant; Emergency Provider Internal Medicine; Visit Provider Internal Medicine | DX: R78.81 Bacteremia (principal); R01.1 Cardiac murmur, unspecified; I31.39 Other pericardial effusion (noninflammatory); I34.0 Nonrheumatic mitral (valve) insufficiency | CPT/HCPCS: 93306 ==

== ENCOUNTER 2025-01-23 16:20 | Outpatient (BNV) | payer OTHER, SELFPAY | END 2025-02-01 14:45 | PROVIDERS: Admitting Provider Physician Assistant; Emergency Provider Internal Medicine; Visit Provider Radiology Diagnostic Radiology | DX: R18.8 Other ascites (principal) | CPT/HCPCS: 36573; 49083 ==

== ENCOUNTER 2025-01-23 16:20 | Outpatient (BNV) | payer OTHER, SELFPAY | END 2025-01-26 07:00 | PROVIDERS: Admitting Provider Physician Assistant; Emergency Provider Internal Medicine; Visit Provider Radiology Diagnostic Radiology | DX: R18.8 Other ascites (principal); M48.062 Spinal stenosis, lumbar region with neurogenic claudication; M00.88 Arthritis due to other bacteria, vertebrae | CPT/HCPCS: 49083; 72158 ==

== ENCOUNTER 2025-01-23 16:20 | Outpatient (BNV) | payer OTHER, SELFPAY | END 2025-01-29 14:45 | PROVIDERS: Admitting Provider Physician Assistant; Emergency Provider Internal Medicine; Visit Provider Radiology Diagnostic Radiology | DX: I51.7 Cardiomegaly (principal); J98.4 Other disorders of lung | CPT/HCPCS: 71045 ==

== ENCOUNTER → 2025-01-23 16:20 | Outpatient (BNV) | payer OTHER, SELFPAY | PROVIDERS: Admitting Provider Physician Assistant; Emergency Provider Internal Medicine; Visit Provider Physician Assistant | DX: R10.9 Unspecified abdominal pain (principal); R18.8 Other ascites; N17.9 Acute kidney failure, unspecified | CPT/HCPCS: 99223; 99233 ==

== ENCOUNTER → 2025-01-23 16:20 | Outpatient (BNV) | payer OTHER, SELFPAY | PROVIDERS: Admitting Provider Physician Assistant; Emergency Provider Internal Medicine; Visit Provider Internal Medicine Nephrology | DX: N17.9 Acute kidney failure, unspecified (principal) | CPT/HCPCS: 99223; 99232 ==

== ENCOUNTER → 2025-01-23 16:20 | Outpatient (BNV) | payer OTHER, SELFPAY | PROVIDERS: Admitting Provider Physician Assistant; Emergency Provider Internal Medicine; Visit Provider Nurse Practitioner Psychiatric/Mental Health | DX: F11.90 Opioid use, unspecified, uncomplicated (principal); F10.90 Alcohol use, unspecified, uncomplicated | CPT/HCPCS: 99222 ==

== ENCOUNTER → 2025-01-23 16:20 | Outpatient (BNV) | payer OTHER, SELFPAY | PROVIDERS: Admitting Provider Physician Assistant; Emergency Provider Internal Medicine; Visit Provider Internal Medicine | DX: F11.90 Opioid use, unspecified, uncomplicated (principal); R18.8 Other ascites; M46.56 Other infective spondylopathies, lumbar region | CPT/HCPCS: 99222 ==

== ENCOUNTER → 2025-01-23 16:20 | Outpatient (BNV) | payer OTHER, SELFPAY | PROVIDERS: Admitting Provider Physician Assistant; Emergency Provider Internal Medicine; Visit Provider Psychiatry & Neurology Neurology | DX: M46.56 Other infective spondylopathies, lumbar region (principal) | CPT/HCPCS: 99222 ==